=== PATIENT | male | born 1960 | race Caucasian/White ===

== ENCOUNTER 2020-02-16 08:45 | Outpatient (REF) | payer MEDICARE, MEDICAID, SELFPAY ==
[2020-02-16 09:47] LABS: MANUAL DIFF FLAG NO
[2020-02-16 09:59] LABS: Basophils Percent Auto 0.4 % (0-2); Eosinophils Absolute Auto 0.2 X10*3/uL (0.0-0.4); Eosinophils Percent Auto 2.6 % (0-4); Hematocrit 39.3 % (42-52); Hemoglobin 13.2 g/dl (14.0-18.0); Imm Gran Abs Auto 0.02 X10*3/uL (0.00-0.03); Imm Gran Pct Auto 0.3 % (0.0-0.4); Lymphocytes Absolute Auto 1.9 X10*3/uL (1.2-4.9); Lymphocytes Percent Auto 28.1 % (20-40); Mean Corpuscular HGB Conc 33.6 g/dl (31.0-36.0); Mean Corpuscular Hemoglobin 32.4 pg (27.0-33.0); Mean Corpuscular Volume 96.6 fL (80-98); Mean Platelet Volume 10.2 fL (9.4-12.4); Monocytes Absolute Auto 0.5 X10*3/uL (0.1-1.2); Monocytes Percent Auto 7.9 % (2-11); Neutrophils Absolute Auto 4.2 X10*3/uL (2.0-8.3); Neutrophils Percent Auto 60.7 % (45-73); Platelet Count 190 X10*3/uL (160-400); Red Blood Count 4.07 X10*6/uL (4.60-5.80); Red Cell Distribution Width 12.6 % (11.0-16.0); White Blood Count 6.9 X10*3/uL (4.8-10.8)
[2020-02-16 10:29] LABS: Alanine Aminotransferase 24 U/L (0-40); Albumin Level 4.4 g/dL (3.5-5.0); Alkaline Phosphatase 59 U/L (39-117); Anion Gap 12 (12-20); Aspartate Amino Transferase 26 U/L (5-37); Bilirubin Direct 0.3 mg/dL (0.0-0.5); Bilirubin Total 0.7 mg/dL (0.0-1.0); Blood Urea Nitrogen 15 mg/dL (9-16); Calcium 9.6 mg/dL (8.4-10.2); Carbon Dioxide 29 mmol/L (22-29); Chloride 103 mmol/L (96-108); Cholesterol 190 mg/dL; Estimated Glomerular Filt Rate > 60; Glucose Random 112 mg/dL (60-115); HDL Cholesterol 56 mg/dL; LDL Cholesterol Calculated 88 mg/dl; Potassium 4.9 mmol/l (3.3-5.1); Sodium 139 mmol/L (135-145); Total Protein 7.2 g/dL (6.5-8.0); Triglycerides 233 mg/dL
== END 2020-02-16 08:46 | disposition home or self-care (01) ==
LOC: HO.10HDL 08:45
DX: E78.5 Hyperlipidemia, unspecified (principal); I10 Essential (primary) hypertension
CPT/HCPCS: 36415; 80048; 80061; 80076; 85025

== ENCOUNTER 2021-02-07 06:47 | Outpatient (REF) | payer MEDICARE, SELFPAY ==
[2021-02-07 06:54] LABS: MANUAL DIFF FLAG NO
[2021-02-07 07:21] LABS: Basophils Percent Auto 0.4 % (0-2); Eosinophils Absolute Auto 0.1 X10*3/uL (0.0-0.4); Eosinophils Percent Auto 1.8 % (0-4); Hematocrit 38.8 % (42-52); Hemoglobin 12.4 g/dl (14.0-18.0); Imm Gran Abs Auto 0.02 X10*3/uL (0.00-0.03); Imm Gran Pct Auto 0.3 % (0.0-0.4); Immature Retic Fraction 10.4 % (2.3-13.4); Lymphocytes Absolute Auto 3.2 X10*3/uL (1.2-4.9); Lymphocytes Percent Auto 40.2 % (20-40); Mean Corpuscular Hemoglobin 31.6 pg (27.0-33.0); Mean Platelet Volume 9.8 fL (9.4-12.4); Monocytes Absolute Auto 0.6 X10*3/uL (0.1-1.2); Monocytes Percent Auto 7.6 % (2-11); Neutrophils Percent Auto 49.7 % (45-73); Platelet Count 200 X10*3/uL (160-400); Red Blood Count 3.92 X10*6/uL (4.60-5.80); Red Cell Distribution Width 12.8 % (11.0-16.0); Retic HGB Equivalent 36.4 pg (30.0-35.0); Reticulocyte Percent 1.8 % (0.5-1.8); Reticulocytes Absolute 0.072 X10*6/uL (0.026-0.095); White Blood Count 7.9 X10*3/uL (4.8-10.8)
[2021-02-07 07:52] LABS: B Type Natriuretic Peptide 260 pg/mL (<100)
[2021-02-07 07:59] LABS: Alanine Aminotransferase 15 U/L (0-40); Albumin Level 4.3 g/dL (3.5-5.0); Alkaline Phosphatase 61 U/L (39-117); Anion Gap 15 (12-20); Aspartate Amino Transferase 19 U/L (5-37); Bilirubin Total 0.4 mg/dL (0.0-1.0); Blood Urea Nitrogen 18 mg/dL (9-16); Carbon Dioxide 26 mmol/L (22-29); Chloride 101 mmol/L (96-108); Cholesterol 168 mg/dL; Estimated Glomerular Filt Rate > 60; Glucose Random 118 mg/dL (60-115); HDL Cholesterol 54 mg/dL; Iron 97 mcg/dL (45-160); LDL Cholesterol Calculated 80 mg/dl; Percent Iron Saturation 36 % (15-50); Potassium 5.3 mmol/L (3.3-5.1); Sodium 137 mmol/L (135-145); Total Iron Binding Capacity 271 mcg/dL (228-428); Total Protein 7.4 g/dL (6.5-8.0); Triglycerides 173 mg/dL; Unsaturated Iron Binding 174 ug/dL
[2021-02-07 08:09] LABS: Free T4 (Free Thyroxine) 0.83 ng/dL (0.71-1.85); Prostate Specific Antigen Scr 0.17 ng/mL (<0.05-4.0); Thyroid Stimulating Hormone 0.64 uIU/mL (0.32-4.0)
[2021-02-07 08:26] LABS: Estimated Average Glucose 100 mg/dL; Hemoglobin A1c % 5.1 %
[2021-02-07 08:32] LABS: Ferritin 217 ng/mL (20-250)
[2021-02-07 09:22] LABS: Folate 5.1 ng/mL (> or = 4.0); Vitamin B12 302 pg/mL (200-900)
== END 2021-02-07 06:48 | disposition home or self-care (01) ==
LOC: HO.LAB 06:47
PROVIDERS: PCP Internal Medicine; Visit Provider Internal Medicine
DX: E78.00 Pure hypercholesterolemia, unspecified (principal); I11.0 Hypertensive heart disease with heart failure; I50.9 Heart failure, unspecified; R73.02 Impaired glucose tolerance (oral); D64.9 Anemia, unspecified; Z12.5 Encounter for screening for malignant neoplasm of prostate
CPT/HCPCS: 36415; 80053; 80061; 82607; 82728; 82746; 83036; 83540; 83880; 84153; 84439; 84443; 85025; 85045

== ENCOUNTER → 2021-03-28 10:12 | Outpatient (REF) | payer MEDICARE, SELFPAY ==
--- NOTE | 2021-03-28 10:16 | CA_ITS ---
Transthoracic Echocardiogram Patient (Last, First, Middle): Johnny Pittman L Gender: Male Date of : 1960 Age: 60 Procedure Date: 03/28/2021 Procedure Type: Transthoracic Echocardiogram Location: OP Height: 172.72 cm Weight: 90.72 kg BSA: 2.04 m2 Heart Rate: bpm BP: 128 / 62 mmHg Agricultural Chemist: Referring MD: Boy Jorge MD Facilities Coordinator: Ian Gallardo MD Symptoms: I25.10 - Atherosclerotic heart disease of [place] coronary... Study Quality: Fair ECG Rhythm: Sinus Conclusions: - 1. Moderate to severe LV systolic dysfunction with LVEF of 30 35% with underlying regional wall motion abnormality consistent with ischemic cardiomyopathy with impaired relaxation filling pattern 2. Mild mitral regurgitation 3. Normal RV systolic pressure 4. No gross pericardial effusion Findings Procedure Information Contrast agent, definity, is being given per protocol without apparent complications. Left Ventricle Normal left ventricular cavity size. There is normal left ventricular wall thickness. The left ventricular systolic function is moderate to severely decreased. The visually estimated ejection fraction is between 30-35%. Spectral Doppler is indicative of an impaired relaxation filling pattern. Wall Motion Rest Echo Findings The apical septum is hypokinetic. The inferoseptal wall and inferior wall are akinetic. All other scored wall segments showed normal motion. Right Ventricle Normal right ventricular cavity size. There is mildly decreased right ventricular systolic function. Atria The left atrium is normal in size. Interatrial shunt cannot be excluded. The right atrium is normal in size. Aortic Valve The aortic valve was not well visualized. There is no aortic valve stenosis. There is no aortic valve regurgitation. Mitral Valve Likely normal mitral valve structure and function. There is mild mitral annular calcification. There is mild mitral valve regurgitation. There is no mitral valve stenosis. Pulmonic Valve The pulmonic valve was not well visualized. Tricuspid Valve Likely normal tricuspid valve structure and function. There is mild tricuspid valve regurgitation. The right ventricular systolic pressure is normal. The right ventricular systolic pressure is 37 mmHg. There is no evidence of pulmonary hypertension. Great Vessels All visible segments of the aorta are normal in size. The pulmonary artery was not well visualized. Venous The inferior vena cava is normal in size and collapses greater than 50% with inspiration. Pericardium/Pleural There is no evidence of pericardial effusion. Prior Study Comparison Changes noted compared to prior study dated: 07/25/2016. LV systolic function is marginally reduced Measurements 2D Linear Measurements IVSd: 0.96 0.6-0.9/0.6-1.0 cm LVIDd: 5.47 3.9-5.3/4.2-5.9 cm LVIDd Index: 2.68 2.4-3.2/2.2-3.1 cm/m2 LVIDs: 4.39 2.0-3.6 cm LVPWd: 1.01 0.7-1.1 cm LA Diam: 3.60 2.7-3.8/3.0-4.0 cm LAIDs Index: 1.76 1.5-2.3 cm/m2 LV Mass: 257.74 67-162/88-224 g LV Mass Index: 126.35 43-95/49-115 g/m2 LVOT Diam: 2.10 3.0+(-)1.3 cm 2D Systolic Function EF 4C: 33.80 >55% EF 2C: 3.70 >55% Mitral Valve MV Pk E: 0.55 MV PK A: 0.57 MV Decel Time: 231.00 E/A: 1.00 E'Lateral: 9.03 E'Medial: 6.64 E/E' Med: 8.30 E/E' Lat: 6.10 PHT: 68.00 MVA PHT: 3.24 Decel [place]on: 2.38 Aortic Valve AoV Pk Chinmay: 1.33 AoV Pk Grad: 7.00 LVOT LVOT Pk Chinmay: 1.15 LVOT Mn Chinmay: 0.71 LVOT VTI: 0.23 LVOT Pk Grad: 5.00 LVOT Mn Grad: 2.00 LVOT Diam: 2.10 LVOT Area: 3.46 Diastolic Function MV Pk E: 0.55 MV Pk A: 0.57 E/A: 1.00 E'Medial: 6.64 E/E' Med: 8.30 E' Laterial: 9.03 E/E' Lat: 6.10 Right Ventricle TAPSE (mm): 1.20 Tricuspid Valve TR Pk Chinmay: 2.91 TR Pk Grad: 34.00 RA Press: 3.00 RVSP: 37.00 Great Vessels Aorta Ao Asc: 2.50 2.1-3.4 cm Updated in Other Vendor System with Status of Final Ian Gallardo MD electronically signed on 04/03/2021 1:12:08 PM with status of Final
--- NOTE | 2021-03-28 10:16 | CA_ITS ---
INDICATIONS: Atherosclerotic heart disease of [place] coronary artery without angina pectoris. HT: 5'8 WT: 200 BSA: 2.04 m2 BP: 128/62 BRICKLAYER HELPER: DSG STUDY QUALITY: ECG RHYTHM: CONCLUSIONS: FINDINGS: M-MODE/2D MEASUREMENTS: LVd: 5.47 cm LVs: 4.39 cm IVSd: 0.9 cm IVSs: LVPWd: 1.01 cm LVPWs: ASC. Aorta: 2.5 cm RVd: 2.30 cm AO root: LA: AV Cusp: LVOT: 2.1 cm EF% 40 % TAPSE: 1.66 OTHER: Effusion: Thrombus: Wall Motion: RVSP 46 mmHg Mitral E/A 54.8 cm/s / 57.0 cm/s = 1.0 E Med: 6.84 cm/s E Lat. 9.03 cm/s AV CUSPD TRILEAFLET: DOPPLER MEASUREMENTS: Aortic PPG 2 MFG 7 VELOCITY 133 cm/s VALVE AREA: 2.99 TRICUSPID: PPG 43 VELOCITY 237 cm/s RA Vol. IVC: 1.31 cm LA Vol. 1.84 ml/m2 MTDD
== END ==
LOC: HO.CARD 10:12
PROVIDERS: Visit Provider Internal Medicine
DX: I25.10 Atherosclerotic heart disease of native coronary artery without angina pectoris (principal)
CPT/HCPCS: 93306; Q9957

== ENCOUNTER → 2021-07-29 14:43 | Outpatient (BNVA) | payer MEDICARE, SELFPAY | PROVIDERS: PCP Internal Medicine; Referring Provider Internal Medicine; Visit Provider Internal Medicine Cardiovascular Disease | DX: I25.5 Ischemic cardiomyopathy (principal); I25.10 Atherosclerotic heart disease of native coronary artery without angina pectoris; I10 Essential (primary) hypertension; J44.9 Chronic obstructive pulmonary disease, unspecified; E78.00 Pure hypercholesterolemia, unspecified; F17.210 Nicotine dependence, cigarettes, uncomplicated; Z95.5 Presence of coronary angioplasty implant and graft; Z95.1 Presence of aortocoronary bypass graft; Z79.82 Long term (current) use of aspirin; Z79.899 Other long term (current) drug therapy | CPT/HCPCS: 93005; 99202 ==

== ENCOUNTER 2021-08-30 07:53 | Outpatient (REF) | payer MEDICARE, SELFPAY ==
[2021-08-30 08:19] LABS: MANUAL DIFF FLAG NO
[2021-08-30 09:14] LABS: Basophils Percent Auto 0.5 % (0-2); Eosinophils Absolute Auto 0.1 X10*3/uL (0.0-0.4); Eosinophils Percent Auto 1.5 % (0-4); Hematocrit 30.3 % (42.0-52.0); Hemoglobin 9.6 g/dl (14.0-18.0); Imm Gran Abs Auto 0.01 X10*3/uL (0.00-0.03); Imm Gran Pct Auto 0.2 % (0.0-0.4); Immature Retic Fraction 12.4 % (2.3-13.4); Lymphocytes Absolute Auto 2.1 X10*3/uL (1.2-4.9); Lymphocytes Percent Auto 37.7 % (20-40); Mean Corpuscular HGB Conc 31.7 g/dl (31.0-36.0); Mean Corpuscular Hemoglobin 31.2 pg (27.0-33.0); Mean Corpuscular Volume 98.4 fL (80.0-98.0); Mean Platelet Volume 10.8 fL (9.4-12.4); Monocytes Absolute Auto 0.4 X10*3/uL (0.1-1.2); Monocytes Percent Auto 7.1 % (2-11); Neutrophils Absolute Auto 2.9 x10*3/uL (2.0-8.3); Platelet Count 175 X10*3/uL (160-400); Red Blood Count 3.08 X10*6/uL (4.60-5.80); Red Cell Distribution Width 13.1 % (11.0-16.0); Retic HGB Equivalent 35.9 pg (30.0-35.0); Reticulocyte Percent 1.5 % (0.5-1.8); Reticulocytes Absolute 0.046 X10*6/uL (0.026-0.095); White Blood Count 5.5 X10*3/uL (4.8-10.8)
[2021-08-30 09:35] LABS: Alanine Aminotransferase 9 U/L (0-40); Albumin Level 3.8 g/dL (3.5-5.0); Alkaline Phosphatase 72 U/L (39-117); Anion Gap 11 (12-20); Aspartate Amino Transferase 16 U/L (5-37); Bilirubin Total 0.4 mg/dL (0.0-1.0); Blood Urea Nitrogen 23 mg/dL (9-16); Calcium 9.5 mg/dL (8.4-10.2); Carbon Dioxide 22 mmol/L (22-29); Chloride 106 mmol/L (96-108); Cholesterol 111 mg/dL; Estimated Glomerular Filt Rate 20; Glucose Random 100 mg/dL (60-115); HDL Cholesterol 39 mg/dL; Iron 101 mcg/dL (45-160); LDL Cholesterol Calculated 46 mg/dl; Percent Iron Saturation 45 % (15-50); Potassium 5.3 mmol/L (3.3-5.1); Sodium 134 mmol/L (135-145); Total Iron Binding Capacity 222 mcg/dL (228-428); Total Protein 6.4 g/dL (6.5-8.0); Triglycerides 131 mg/dL; Unsaturated Iron Binding 121 ug/dL
[2021-08-30 09:56] LABS: Ferritin 196 ng/mL (20-250)
[2021-08-30 10:02] LABS: Folate 5.6 ng/mL (> or = 4.0); Vitamin B12 496 pg/mL (200-900)
[2021-08-30 10:10] LABS: Estimated Average Glucose 97 mg/dL
== END 2021-08-30 07:54 | disposition home or self-care (01) ==
LOC: HO.LAB 07:53
PROVIDERS: Absent Provider Internal Medicine Cardiovascular Disease; PCP Internal Medicine; Visit Provider Internal Medicine
DX: Z13.89 Encounter for screening for other disorder (principal)
CPT/HCPCS: 36415; 80053; 80061; 82607; 82728; 82746; 83036; 83540; 85025; 85045

== ENCOUNTER 2021-08-30 14:43 | Inpatient (IN) | payer MEDICARE, OTHER, SELFPAY ==
--- NOTE | ~2021-08-30 | US_ITS ---
EXAMINATION: US RETROPERITONEAL LIMITED (RENAL ONLY) CLINICAL INFORMATION: STANFORD.. COMPARISON: None TECHNIQUE: Real-time imaging of the kidneys. FINDINGS: RIGHT KIDNEY: 9.8 x 6.1 x 4.5 cm (SAG x AP x TRV). The kidney is normal in size, contour, and echogenicity. Renal cortical thickness is normal. No calculi or focal parenchymal lesions. No hydronephrosis. Exophytic circumscribed avascular hypoechogenicity is noted at the mid pole, measures 0.8 x 0.7 x 0.8 cm, most consistent with a small cyst. Slight lobulated contour is present. LEFT KIDNEY: 9.9 x 5.3 x 4.5 cm (SAG x AP x TRV). The kidney is normal in size, contour, and echogenicity. Renal cortical thickness is normal. No calculi or focal parenchymal lesions. No hydronephrosis. US/US renal BI IMPRESSION: No radiographic evidence of any obstruction/hydronephrosis..
[2021-08-30 15:53] VITALS: BP 103/50; PULSE 60; RESP 18; TEMP 37.1; O2SAT 97; BMI 29.9
[2021-08-30 16:00] LABS: MANUAL DIFF FLAG NO
[2021-08-30 16:03] LABS: Basophils Percent Auto 0.4 % (0-2); Eosinophils Absolute Auto 0.1 X10*3/uL (0.0-0.4); Eosinophils Percent Auto 1.3 % (0-4); Hemoglobin 9.7 g/dl (14.0-18.0); Imm Gran Abs Auto 0.02 X10*3/uL (0.00-0.03); Imm Gran Pct Auto 0.3 % (0.0-0.4); Lymphocytes Absolute Auto 2.7 X10*3/uL (1.2-4.9); Mean Corpuscular HGB Conc 32.3 g/dl (31.0-36.0); Mean Corpuscular Hemoglobin 31.8 pg (27.0-33.0); Mean Corpuscular Volume 98.4 fL (80.0-98.0); Mean Platelet Volume 10.5 fL (9.4-12.4); Monocytes Absolute Auto 0.6 X10*3/uL (0.1-1.2); Monocytes Percent Auto 8.2 % (2-11); Neutrophils Absolute Auto 3.8 x10*3/uL (2.0-8.3); Neutrophils Percent Auto 52.8 % (45-73); Platelet Count 185 X10*3/uL (160-400); Red Blood Count 3.05 X10*6/uL (4.60-5.80); Red Cell Distribution Width 13.2 % (11.0-16.0); White Blood Count 7.2 X10*3/uL (4.8-10.8)
[2021-08-30 16:22] LABS: Alanine Aminotransferase 10 U/L (0-40); Albumin Level 3.8 g/dL (3.5-5.0); Alkaline Phosphatase 71 U/L (39-117); Anion Gap 12 (12-20); Aspartate Amino Transferase 17 U/L (5-37); Bilirubin Total 0.3 mg/dL (0.0-1.0); Blood Urea Nitrogen 23 mg/dL (9-16); Calcium 9.3 mg/dL (8.4-10.2); Carbon Dioxide 22 mmol/L (22-29); Chloride 106 mmol/L (96-108); Creatinine Clr Calc Pharmacy 26.8; Estimated Glomerular Filt Rate 19; Glucose Random 92 mg/dL (60-115); Potassium 5.9 mmol/L (3.3-5.1); Sodium 134 mmol/L (135-145); Total Protein 6.7 g/dL (6.5-8.0)
[2021-08-30 17:10] VITALS: BP 134/34; PULSE 63; RESP 17; TEMP 36.6; O2SAT 96
--- NOTE | 2021-08-30 17:19 | PC.NURSE ---
pt reports he started Ezetimibe a month ago.
[2021-08-30 17:22] VITALS: BP 110/46; PULSE 63; RESP 16; O2SAT 99
--- NOTE | 2021-08-30 17:41 | ED.RECABL ---
HPI - Recheck/Abnormal Lab/Rx General Chief Complaint: Recheck/Abnormal Lab/Rx Stated Complaint: Kidney failure Time Seen by Provider: 08/30/21 17:09 Source: patient Mode of arrival: ambulatory Limitations: no limitations History of Present Illness HPI narrative: patient presents to the emergency department by referral from his primary care office, states this is had routine lab work performed and was advised he has kidney failure. Related Data Home Medications Medication Instructions Recorded Confirmed aspirin 81 mg tablet,delayed 81 mg PO DAILY 08/15/20 08/30/21 release (Adult Aspirin Regimen) albuterol sulfate 90 mcg/actuation 1 inh INHALATION Q4H PRN 08/30/21 08/30/21 aerosol inhaler (Ventolin HFA) Previous Rx's Medication Instructions Recorded rosuvastatin 40 mg tablet 40 mg PO DAILY 90 Days #90 tab 02/15/21 metoprolol succinate 50 mg 50 mg PO DAILY #90 tab 04/17/21 tablet,extended release 24 hr lisinopril 20 mg tablet 20 mg PO DAILY 90 Days #90 tab 04/24/21 omeprazole 20 mg capsule,delayed 20 mg PO BID 90 Days #180 cap 06/06/21 release zolpidem 5 mg tablet 5 mg PO BEDTIME PRN #30 tab 06/06/21 ezetimibe 10 mg tablet (Zetia) 10 mg PO DAILY #30 tab 07/29/21 Allergies Allergy/AdvReac Type Severity Reaction Status Date / Time No Known Allergies Allergy Verified 06/06/21 11:09 [facility] Past Medical History Medical History Colon cancer screening Colonoscopy refused COPD (chronic obstructive pulmonary disease) Coronary artery disease GERD (gastroesophageal reflux disease) Hypercholesterolemia Hypertension Insomnia Ischemic cardiomyopathy Obesity (BMI 30-39.9) Umbilical hernia Surgical History Hx of CABG Family History Family History Father No problems noted. Mother No problems noted. Sister No problems noted. Sister No problems noted. Brother No problems noted. Brother Myocardial infarct Liver cancer Social History Social History Housing: Apartment Alcohol intake: current Alcohol intake frequency: 3 or more drinks per day Alcohol type: beer Patient Tobacco Use Status: Current everyday Tobacco user Tobacco use type: Cigarette Cigarettes Per Day: 8 e-Cigarette/Vaping Use: Never Used Second Hand Smoke Exposure: No Advance Directives Date on File: 02/16/20 Current occupational status: unemployed Physical Exam Vital Signs: Vital Signs: Last Vital Signs Temp 97.0 F 08/30/21 20:00 Pulse 73 08/30/21 20:00 Resp 20 08/30/21 20:00 BP 107/68 08/30/21 20:00 Pulse Ox 94 08/30/21 20:00 BMI result Body Mass Index 29.9 Vital signs have been reviewed as normal and appeared to be correct. blood pressure is slightly low diastolically 110/46? Heart rate normal.? Respiration rate normal. Temperature normal.? Oxygen saturation normal. Appearance: Alert.?Oriented to person, place and time. No acute distress.?Normal affect. Eyes: Pupils equal, round and reactive to light.? ENT: Pharynx normal.?? Neck: Normal inspection.? Neck supple.?? CVS: Heart sounds normal. Normal heart rate and rhythm.? Pulses normal.?? Respiratory: No respiratory distress.? Lung sounds bilateral inspiratory expiratory wheezing. No increased work of breathing. Abdomen: Soft and non-tender. Normoactive bowel sounds. No pulsatile mass.?? Skin: Skin warm and dry.? Normal skin color.? Normal skin turgor.?? Extremities: No lower extremity edema.? No calf ttp? Neuro: Moves all extremities spontaneously. Sensation intact bilaterally. CN II-XII intact. No focal neuro deficits. Ambulates with normal steady gait. Course Course Course Narrative: Patient is a 61-year-old male with a past medical history of ischemic cardiomyopathy, insomnia, anemia, tobacco abuse, obesity, impaired glucose tolerance, COPD, congestive heart failure, coronary artery disease, GERD, hypercholesterolemia hypertension. he presents to the emergency department for evaluation are abnormal renal function. patient's home medication list was reviewed for potential renal toxic medications, he is taking lisinopril, recently started on Zetia over the past month, in addition to rosuvastatin. patient without any acute complaints, he is overall well appearing not toxic have bilateral inspiratory-expiratory wheezing consistent with COPD, denies feelings of shortness of breath or dyspnea on exertion, using inhalers at home as prescribed. Reevaluation(s) Reevaluation #1: CBC reveals a macrocytic anemia with hemoglobin of 9.7 and hematocrit 30.0 BMP reveals BUN of 23 and creatinine 3.3 with sodium 134 and potassium 5.9. patient is without altered mental status, or seizure activity, no known exposure to potential toxins. will gently hydrate with 500 mL normal saline IV fluid bolus. spoke with hospitalist Service, Dr. Wen, for admission to Medicine who accepts patient at this time, Patient will require renal consultation. Advised patient plan of care and he is agreeable. Add on lab orders for total CK, given zetia and statin usage. Time: 18:15 Reevaluation #2: Urinalysis reveals 2+ blood, RBC 10-14, no concern for infectious process. Total CK 305. Time: 18:46 MDM - Recheck/Abnormal Lab/Rx Lab Data Result diagrams: 08/30/21 15:56 08/30/21 15:57 Labs: Lab Results 08/30/21 08/30/21 08/30/21 Range/Units 15:56 15:57 18:14 WBC 7.2 (4.8-10.8) X10*3/uL RBC 3.05 L (4.60-5.80) X10*6/uL Hgb 9.7 L (14.0-18.0) g/dl Hct 30.0 L (42.0-52.0) % MCV 98.4 H (80.0-98.0) fL MCH 31.8 (27.0-33.0) pg MCHC 32.3 (31.0-36.0) g/dl RDW 13.2 (11.0-16.0) % Plt Count 185 (160-400) X10*3/uL MPV 10.5 (9.4-12.4) fL Immature Gran % (Auto) 0.3 (0.0-0.4) % Neut % (Auto) 52.8 (45-73) % Lymph % (Auto) 37.0 (20-40) % [place] % (Auto) 8.2 (2-11) % Eos % (Auto) 1.3 (0-4) % Baso % (Auto) 0.4 (0-2) % Lymph # (Auto) 2.7 (1.2-4.9) X10*3/uL [place] # (Auto) 0.6 (0.1-1.2) X10*3/uL Eos # (Auto) 0.1 (0.0-0.4) X10*3/uL Baso # (Auto) 0.0 (0.0-0.2) X10*3/uL Abs Immat Gran (auto) 0.02 (0.00-0.03) X10*3/uL Absolute Neuts (auto) 3.8 (2.0-8.3) x10*3/uL Absolute Nucleated RBC 0.000 (0.0-0.012) X10*3/uL Nucleated RBC % (auto) 0.0 (0.0-0.2) /100WBC Sodium 134 L (135-145) mmol/L Potassium 5.9 H (3.3-5.1) mmol/L Chloride 106 (96-108) mmol/L Carbon Dioxide 22 (22-29) mmol/L Anion Gap 12 (12-20) BUN 23 H (9-16) mg/dL Creatinine 3.30 H (0.5-1.4) mg/dL Estim Creat Clear Calc 26.8 Estimated GFR 19 Random Glucose 92 (60-115) mg/dL Calcium 9.3 (8.4-10.2) mg/dL Phosphorus 4.5 (2.7-4.5) mg/dL Magnesium 2.1 (1.6-2.6) mg/dL Total Bilirubin 0.3 (0.0-1.0) mg/dL AST 17 (5-37) U/L ALT 10 (0-40) U/L Alkaline Phosphatase 71 (39-117) U/L Total Creatine Kinase 305 H (38-174) U/L Total Protein 6.7 (6.5-8.0) g/dL Albumin 3.8 (3.5-5.0) g/dL Urine Color YELLOW Urine Appearance CLEAR Urine pH 6.0 (5.0-8.0) Ur Specific [place] 1.010 (1.005-1.025) Urine Protein TRACE (NEG-TRACE) MG/DL Urine Glucose (UA) NEG (NEG) MG/DL Urine Ketones NEG (NEG) MG/DL Urine Blood 2+ H (NEG) Urine Nitrite NEG (NEG) Ur Leukocyte Esterase NEG (NEG) Urine RBC 10-14 H (0) /HPF Urine WBC 0 (0-4) /HPF Ur Squamous Epith Cells TRACE /LPF Urine Bacteria NONE /LPF COVID-19 (CED) (Negative) COVID-19 Clin Com 08/30/21 Range/Units 18:14 WBC (4.8-10.8) X10*3/uL RBC (4.60-5.80) X10*6/uL Hgb (14.0-18.0) g/dl Hct (42.0-52.0) % MCV (80.0-98.0) fL MCH (27.0-33.0) pg MCHC (31.0-36.0) g/dl RDW (11.0-16.0) % Plt Count (160-400) X10*3/uL MPV (9.4-12.4) fL Immature Gran % (Auto) (0.0-0.4) % Neut % (Auto) (45-73) % Lymph % (Auto) (20-40) % [place] % (Auto) (2-11) % Eos % (Auto) (0-4) % Baso % (Auto) (0-2) % Lymph # (Auto) (1.2-4.9) X10*3/uL [place] # (Auto) (0.1-1.2) X10*3/uL Eos # (Auto) (0.0-0.4) X10*3/uL Baso # (Auto) (0.0-0.2) X10*3/uL Abs Immat Gran (auto) (0.00-0.03) X10*3/uL Absolute Neuts (auto) (2.0-8.3) x10*3/uL Absolute Nucleated RBC (0.0-0.012) X10*3/uL Nucleated RBC % (auto) (0.0-0.2) /100WBC Sodium (135-145) mmol/L Potassium (3.3-5.1) mmol/L Chloride (96-108) mmol/L Carbon Dioxide (22-29) mmol/L Anion Gap (12-20) BUN (9-16) mg/dL Creatinine (0.5-1.4) mg/dL Estim Creat Clear Calc Estimated GFR Random Glucose (60-115) mg/dL Calcium (8.4-10.2) mg/dL Phosphorus (2.7-4.5) mg/dL Magnesium (1.6-2.6) mg/dL Total Bilirubin (0.0-1.0) mg/dL AST (5-37) U/L ALT (0-40) U/L Alkaline Phosphatase (39-117) U/L Total Creatine Kinase (38-174) U/L Total Protein (6.5-8.0) g/dL Albumin (3.5-5.0) g/dL Urine Color Urine Appearance Urine pH (5.0-8.0) Ur Specific [place] (1.005-1.025) Urine Protein (NEG-TRACE) MG/DL Urine Glucose (UA) (NEG) MG/DL Urine Ketones (NEG) MG/DL Urine Blood (NEG) Urine Nitrite (NEG) Ur Leukocyte Esterase (NEG) Urine RBC (0) /HPF Urine WBC (0-4) /HPF Ur Squamous Epith Cells /LPF Urine Bacteria /LPF COVID-19 (CED) Negative (Negative) COVID-19 Clin Com See Note Discharge Plan Discharge Clinical Impression: Acute kidney injury Patient Disposition: Admitted As Inpatient Interventions: Admission Worksheet (ED) Last Done: 08/30/21 20:15 Discharge Date/Time: 08/30/21 19:40
--- NOTE | 2021-08-30 18:06 | ECG_ITS ---
Test Reason : elevated potassium, rhythym check Blood Pressure : / mmHG Vent. Rate : 058 BPM Atrial Rate : 058 BPM P-R Int : 204 ms QRS Dur : 146 ms QT Int : 440 ms P-R-T Axes : 073 094 076 degrees QTc Int : 431 ms Sinus bradycardia Right bundle branch block Possible Inferior infarct (cited on or before 27-DEC-2011) Abnormal ECG When compared with ECG of 10-MAY-2013 11:25, Criteria for Anteroseptal infarct are no longer Present Referred By: Ana Rosa Bravo Electronically Signed By:CAM LOPEZ MD
[2021-08-30 18:17] VITALS: PULSE 64; RESP 16; O2SAT 98
[2021-08-30 18:20] LABS: Appearance Urine CLEAR; Color Urine YELLOW; Glucose Urine UA NEG (NEG); Leukocyte Esterase Urine NEG (NEG); Nitrite Urine NEG (NEG); UACC Culture Trigger NO; Urine Blood 2+ (NEG); Urine Ketones NEG (NEG); Urine Protein TRACE MG/DL (NEG-TRACE)
[2021-08-30 18:21] LABS: Magnesium 2.1 mg/dL (1.6-2.6); Phosphorus 4.5 mg/dL (2.7-4.5)
[2021-08-30] MEDS: 0.9 % Sodium Chloride 500 ML IV (18:21)
[2021-08-30 18:28] LABS: Squamous Epithelial Cell Urine TRACE /LPF; WBC Urine 0 /HPF (0-4)
[2021-08-30 18:35] LABS: COVID-19 Test Negative (Negative)
--- NOTE | 2021-08-30 18:35 | P.HPHOSP_ITS ---
History of Present Illness Date of Service: 08/30/21 Chief Complaint: STANFORD 61-year-old male presents today after routine labs from .-3.. When questioned, he denies dehydration/diarrhea, toxin exposure, ingestions. The only new medicine started was that he approximately 2 weeks ago. He voices no complaints at this time. He does carry a history of coronary artery disease with CHF but states he has been pain free without issue for some time now. He admits to drinking 10 beers a day and smoking half a pack a cigarettes but denies past history of alcohol withdrawal. He will be admitted to telemetry IV volume replacement and renal consult in a.m. Review of Systems Review of Systems: Denies chest pain Denies shortness of breath Denies nausea vomiting diarrhea Denies fever chills Denies rashes [facility] Medical History Colon cancer screening Colonoscopy refused COPD (chronic obstructive pulmonary disease) Coronary artery disease GERD (gastroesophageal reflux disease) Hypercholesterolemia Hypertension Insomnia Ischemic cardiomyopathy Obesity (BMI 30-39.9) Umbilical hernia Family History Father No problems noted. Mother No problems noted. Sister No problems noted. Sister No problems noted. Brother No problems noted. Brother Myocardial infarct Liver cancer Surgical History Hx of CABG Social History Housing: Apartment Alcohol intake: current Alcohol intake frequency: 3 or more drinks per day Alcohol type: beer Patient Tobacco Use Status: Current everyday Tobacco user Tobacco use type: Cigarette Cigarettes Per Day: 8 Smoked in Last 30 Days: Yes e-Cigarette/Vaping Use: Never Used Second Hand Smoke Exposure: No Use of substances other than those prescribed or required for medical reasons: No Advance Directives: Yes Advance Directives Information Provided: No Advance Directives on File: No Advance Directives Date on File: 02/16/20 Current occupational status: unemployed Meds Allergies Allergy/AdvReac Type Severity Reaction Status Date / Time No Known Allergies Allergy Verified 06/06/21 11:09 Active Medications: Current Medications Sodium Chloride (Ns) 500 mls @ 500 mls/hr IV .Q1H DOMINIQUE Stop: 08/30/21 19:14 Last Admin: 08/30/21 18:21 Dose: 500 mls/hr Documented by: Home Medications Medication Instructions Recorded Confirmed Last Taken Type aspirin 81 mg tablet,delayed 81 mg PO DAILY 08/15/20 08/30/21 08/30/21 History release (Adult Aspirin Regimen) albuterol sulfate 90 mcg/actuation 1 inh INHALATION Q4H PRN 08/30/21 08/30/21 Un known History aerosol inhaler (Ventolin HFA) Physical Exam Vital Signs and Narrative: Vital Signs: Last Vital Signs Temp 98 F 08/30/21 17:10 Pulse 64 08/30/21 18:17 Resp 16 08/30/21 18:17 BP 110/46 L 08/30/21 17:22 Pulse Ox 98 08/30/21 18:17 BMI result Body Mass Index 29.9 Const: Other: Awake alert oriented x3 no acute distress Resp: Other: Diminished all [place] with dense expiratory wheezes throughout Cardio: Other: Distant heart sounds; no S4; positive S1-S2; no S3 murmurs rubs or gallops GI: Other: Soft nontender nondistended with normoactive bowel sounds. There are no overt peritoneal signs Neuro: Other: Cranial nerves 2-12 grossly intact this tested. Motor is 5/5 all extremities. Sensation is intact. Cognition appropriate Extrem: Other: No edema bilaterally Results Labs CBC and Chem 7: 08/30/21 15:56 08/30/21 15:57 Labs: Laboratory Results - last 24 hr 08/30/21 08/30/21 08/30/21 15:56 15:57 18:14 MCV 98.4 H MCH 31.8 MCHC 32.3 RDW 13.2 Plt Count 185 MPV 10.5 Immature Gran % (Auto) 0.3 Neut % (Auto) 52.8 Lymph % (Auto) 37.0 [place] % (Auto) 8.2 Eos % (Auto) 1.3 Baso % (Auto) 0.4 Lymph # (Auto) 2.7 [place] # (Auto) 0.6 Eos # (Auto) 0.1 Baso # (Auto) 0.0 Abs Immat Gran (auto) 0.02 Absolute Neuts (auto) 3.8 Absolute Nucleated RBC 0.000 Nucleated RBC % (auto) 0.0 Potassium 5.9 H Anion Gap 12 Creatinine 3.30 H Estim Creat Clear Calc 26.8 Estimated GFR 19 Random Glucose 92 Calcium 9.3 Phosphorus 4.5 Magnesium 2.1 Total Bilirubin 0.3 AST 17 ALT 10 Alkaline Phosphatase 71 Total Protein 6.7 Albumin 3.8 Urine Color YELLOW Urine Appearance CLEAR Urine pH 6.0 Ur Specific [place] 1.010 Urine Protein TRACE Urine Glucose (UA) NEG Urine Ketones NEG Urine Blood 2+ H Urine Nitrite NEG Ur Leukocyte Esterase NEG Urine RBC 10-14 H Urine WBC 0 Ur Squamous Epith Cells TRACE Urine Bacteria NONE Assessment and Plan (1) Acute kidney injury: Status: Acute (2) Impaired glucose tolerance: Status: Acute (3) COPD (chronic obstructive pulmonary disease): Qualifiers: COPD type: emphysema Emphysema type: panlobular Qualified Code(s): J43.1 - Panlobular emphysema Status: Acute (4) Coronary artery disease: Qualifiers: Coronary Disease-Associated Artery/Lesion type: [place] artery [place] vs. transplanted heart: [place] heart Associated angina: without angina Qualified Code(s): I25.10 - Atherosclerotic heart disease of [place] coronary artery without angina pectoris Status: Acute (5) Hypertension: Qualifiers: Hypertension type: essential hypertension Qualified Code(s): I10 - Essential (primary) hypertension Status: Acute Plan 61-year-old male presents for routine laboratory evaluation and is found to have STANFORD I by labs. He states compliance with his medicine and no exposure to toxins and no history of dehydration. The only new medicine is Zetia which was introduced approximately 2 weeks ago. He presents with hyponatremia/hyperkalemia as well as the STANFORD. 1. STANFORD -admit to telemetry -hold MALVIN-inhibitor -gentle volume with normal saline 100 cc an hour overnight -Follow renals/divalents....total CKs pending -renal consult in am 2. Hyperkalemia/hyponatremia -1 dose of Lokelma tonight -volume depletion with saline as above -labs in a.m. 3. COPD (examines tight however is asymptomatic) -p.r.n. nebs -adjust as indicated 4. CAD (no recent chest pain) -continue metoprolol/aspirin -hold lisinopril, statin, Zetia -observe on telemetry 5. Hypertension -as per 4. -will avoid renal toxins 6. GERD -continue PPI Full code Heparin Will require 1-2 midnights going forward for treatment of STANFORD and hyperkalemia and determination of etiology. This can not be accomplished in a less acute setting Quality Stroke Does the patient have a stroke diagnosis?: No VTE Prior VTE?: No VTE Risk Level:: Medical - moderate - high VTE Device Contraindication: Treatment Not Tolerated VTE Drug Contraindication: N/A - Med Ordered
--- NOTE | 2021-08-30 18:35 | PHA.MEDREC ---
Pharmacy Consult ? Medication Reconciliation Pharmacy has completed the medication reconciliation. Pt states that he is taking both ezetimibe and rosuvastatin, however his rosuvastatin hasn't been filled since April 2021. Asked pt about this but he was insistent. Nasrin Scherer, GunnarD
[2021-08-30] MEDS: Sodium Zirconium Cyclosilicate 10 GM POWD.PACK PO (19:19)
[2021-08-30 20:00] VITALS: BP 107/68; PULSE 73; RESP 20; TEMP 36.1; O2SAT 94
[2021-08-30] MEDS: 0.9 % Sodium Chloride 1,000 ML 100 ML IVCONT (20:15)
[2021-08-30] MEDS: Heparin Sodium,Porcine 5,000 UNIT/ML VIAL 5000 UNIT SUBCUT (20:16)
[2021-08-30] MEDS: 0.9 % Sodium Chloride Flush 3 ML SYRINGE IVFLUSH (22:52)
[2021-08-30] MEDS: Zolpidem Tartrate 5 MG TABLET PO (22:52)
[2021-08-30 23:14] VITALS: BP 106/51; PULSE 72; RESP 16; TEMP 37.1; O2SAT 98
[2021-08-31 03:15] VITALS: BP 113/53; PULSE 62; RESP 16; TEMP 37; O2SAT 96
[2021-08-31] MEDS: Heparin Sodium,Porcine 5,000 UNIT/ML VIAL 5000 UNIT SUBCUT ×3 (03:55→19:26)
[2021-08-31] MEDS: Omeprazole 20 MG CAPSULE.DR PO ×2 (06:05→16:15)
[2021-08-31] MEDS: 0.9 % Sodium Chloride 1,000 ML 100 ML IVCONT ×2 (06:06→16:13)
[2021-08-31 06:42] LABS: MANUAL DIFF FLAG NO
[2021-08-31 06:58] LABS: Basophils Percent Auto 0.5 % (0-2); Eosinophils Absolute Auto 0.1 X10*3/uL (0.0-0.4); Eosinophils Percent Auto 1.4 % (0-4); Hematocrit 25.8 % (42.0-52.0); Hemoglobin 8.2 g/dl (14.0-18.0); Imm Gran Abs Auto 0.01 X10*3/uL (0.00-0.03); Imm Gran Pct Auto 0.2 % (0.0-0.4); Lymphocytes Absolute Auto 1.7 X10*3/uL (1.2-4.9); Lymphocytes Percent Auto 41.2 % (20-40); Mean Corpuscular HGB Conc 31.8 g/dl (31.0-36.0); Mean Corpuscular Hemoglobin 31.5 pg (27.0-33.0); Mean Corpuscular Volume 99.2 fL (80.0-98.0); Mean Platelet Volume 10.6 fL (9.4-12.4); Monocytes Absolute Auto 0.3 X10*3/uL (0.1-1.2); Monocytes Percent Auto 8.1 % (2-11); Neutrophils Absolute Auto 2.1 x10*3/uL (2.0-8.3); Neutrophils Percent Auto 48.6 % (45-73); Platelet Count 147 X10*3/uL (160-400); Red Cell Distribution Width 13.2 % (11.0-16.0); White Blood Count 4.2 X10*3/uL (4.8-10.8)
[2021-08-31 07:30] LABS: Alanine Aminotransferase 8 U/L (0-40); Albumin Level 3.2 g/dL (3.5-5.0); Alkaline Phosphatase 57 U/L (39-117); Anion Gap 11 (12-20); Aspartate Amino Transferase 15 U/L (5-37); Bilirubin Total 0.4 mg/dL (0.0-1.0); Blood Urea Nitrogen 22 mg/dL (9-16); Calcium 8.8 mg/dL (8.4-10.2); Carbon Dioxide 24 mmol/L (22-29); Chloride 109 mmol/L (96-108); Creatinine Clr Calc Pharmacy 32.2; Estimated Glomerular Filt Rate 24; Glucose Fasting 99 mg/dL (60-99); Potassium 5.7 mmol/L (3.3-5.1); Sodium 138 mmol/L (135-145); Total Protein 5.5 g/dL (6.5-8.0)
[2021-08-31 07:41] VITALS: BP 114/53; PULSE 61; RESP 20; TEMP 36.6; O2SAT 96
--- NOTE | 2021-08-31 08:03 | MHC.CM.PN ---
CM met with Patient at bedside and addressed IMM with him, providing him with the original and placing a copy on the chart. 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 Home no services is the goal and CM has initiated and will follow for dc planning . PCP is DR. Boy Jorge and Patient has received the [employer] Covid vax X1 only.
[2021-08-31] MEDS: Aspirin Enteric Coated 81 MG TABLET.DR PO (09:27)
[2021-08-31] MEDS: Metoprolol Succinate ER 50 MG TAB.ER.24H PO (09:27)
[2021-08-31] MEDS: 0.9 % Sodium Chloride Flush 3 ML SYRINGE IVFLUSH ×2 (09:27→16:13)
[2021-08-31] MEDS: Sodium Zirconium Cyclosilicate 10 GM POWD.PACK PO (09:27)
[2021-08-31 11:21] VITALS: BP 113/53; PULSE 59; RESP 20; TEMP 36.6; O2SAT 98
--- NOTE | 2021-08-31 13:00 | P.PNIM_ITS ---
Subjective Subjective Date of Service: 08/31/21 Interval History: No acute events overnight. Taking nebs. Review of Systems Denies chest pain Denies shortness of breath Denies nausea vomiting diarrhea Denies rashes Physical Exam Vital Signs: Vital Signs: Last Vital Signs Temp 97.9 F 08/31/21 11:21 Pulse 59 08/31/21 11:21 Resp 20 08/31/21 11:21 BP 113/53 L 08/31/21 11:21 Pulse Ox 98 08/31/21 11:21 BMI result Body Mass Index 29.9 Const: Other: Awake alert oriented x3 no acute distress Resp: Other: Diminished all juarez with dense expiratory wheezes throughout Cardio: Other: Distant heart sounds; no S4; positive S1-S2; no S3 murmurs rubs or gallops GI: Other: Soft nontender nondistended with normoactive bowel sounds. There are no overt peritoneal signs Neuro: Other: Cranial nerves 2-12 grossly intact this tested. Motor is 5/5 all extremities. Sensation is intact. Cognition appropriate Extrem: Other: No edema bilaterally Objective Data Active Medications Acetaminophen (Acetaminophen 325 Mg Tablet) 650 mg PO Q6H PRN PRN Reason: Pain, Mild (Pain Scale 1-3) Albuterol Sulfate (Albuterol Sulfate 90 Mcg 8 Gm Inhaler) 1 puff INHALE Q4H PRN PRN Reason: Shortness Of Breath Aspirin (Aspirin Enteric Coated 81 Mg Tablet.) 81 mg PO DAILY [facility] Last Admin: 08/31/21 09:27 Dose: 81 mg Documented by: CHRIS Heparin Sodium (Porcine) (Heparin Sodium,Porcine 5,000 Unit/Ml Vial) 5,000 unit SUBCUT Q8H [facility] Last Admin: 08/31/21 11:34 Dose: 5,000 unit Documented by: CHRIS Sodium Chloride (Ns) 1,000 mls @ 100 mls/hr IVCONT .Q10H [facility] Last Admin: 08/31/21 06:06 Dose: 100 mls/hr Documented by: CHANTAL Metoprolol Succinate (Metoprolol Succinate Er 50 Mg Tab.Er.24h) 50 mg PO DAILY [facility]; Protocol Last Admin: 08/31/21 09:27 Dose: 50 mg Documented by: CHRIS Omeprazole (Omeprazole 20 Mg Capsule.) 20 mg PO BID@0630,1630 [facility] Last Admin: 08/31/21 06:05 Dose: 20 mg Documented by: CHANTAL Sodium Chloride (0.9 % Sodium Chloride Flush 3 Ml Syringe) 3 ml IVFLUSH QSHIFT [facility] Last Admin: 08/31/21 09:27 Dose: 3 ml Documented by: CHRIS Sodium Zirconium Cyclosilicate (Sodium Zirconium Cyclosilicate 10 Gm Powd.Pack) 10 gm PO DAILY [facility] Stop: 09/02/21 08:59 Last Admin: 08/31/21 09:27 Dose: 10 gm Documented by: CHRIS Zolpidem Tartrate (Zolpidem Tartrate 5 Mg Tablet) 5 mg PO BEDTIME PRN PRN Reason: insomnia Last Admin: 08/30/21 22:52 Dose: 5 mg Documented by: CHANTAL Labs CBC & Chem 7: 08/31/21 06:01 08/31/21 06:01 Labs: Laboratory Results - last 24 hr 08/30/21 08/30/21 08/30/21 15:56 15:57 18:14 MCV 98.4 H MCH 31.8 MCHC 32.3 RDW 13.2 Plt Count 185 MPV 10.5 Immature Gran % (Auto) 0.3 Neut % (Auto) 52.8 Lymph % (Auto) 37.0 [place] % (Auto) 8.2 Eos % (Auto) 1.3 Baso % (Auto) 0.4 Lymph # (Auto) 2.7 [place] # (Auto) 0.6 Eos # (Auto) 0.1 Baso # (Auto) 0.0 Abs Immat Gran (auto) 0.02 Absolute Neuts (auto) 3.8 Absolute Nucleated RBC 0.000 Nucleated RBC % (auto) 0.0 Anion Gap 12 Estim Creat Clear Calc 26.8 Estimated GFR 19 Random Glucose 92 Fasting Glucose Calcium 9.3 Phosphorus 4.5 Magnesium 2.1 Total Bilirubin 0.3 AST 17 ALT 10 Alkaline Phosphatase 71 Total Creatine Kinase 305 H Total Protein 6.7 Albumin 3.8 Urine Color YELLOW Urine Appearance CLEAR Urine pH 6.0 Ur Specific [place] 1.010 Urine Protein TRACE Urine Glucose (UA) NEG Urine Ketones NEG Urine Blood 2+ H Urine Nitrite NEG Ur Leukocyte Esterase NEG Urine RBC 10-14 H Urine WBC 0 Ur Squamous Epith Cells TRACE Urine Bacteria NONE COVID-19 (CED) COVID-19 Clin Com 08/30/21 08/31/21 08/31/21 18:14 06:01 06:01 MCV 99.2 H MCH 31.5 MCHC 31.8 RDW 13.2 Plt Count 147 L MPV 10.6 Immature Gran % (Auto) 0.2 Neut % (Auto) 48.6 Lymph % (Auto) 41.2 H [place] % (Auto) 8.1 Eos % (Auto) 1.4 Baso % (Auto) 0.5 Lymph # (Auto) 1.7 [place] # (Auto) 0.3 Eos # (Auto) 0.1 Baso # (Auto) 0.0 Abs Immat Gran (auto) 0.01 Absolute Neuts (auto) 2.1 Absolute Nucleated RBC 0.000 Nucleated RBC % (auto) 0.0 Anion Gap 11 L Estim Creat Clear Calc 32.2 Estimated GFR 24 Random Glucose Fasting Glucose 99 Calcium 8.8 Phosphorus Magnesium Total Bilirubin 0.4 AST 15 ALT 8 Alkaline Phosphatase 57 Total Creatine Kinase 226 H Total Protein 5.5 L Albumin 3.2 L Urine Color Urine Appearance Urine pH Ur Specific [place] Urine Protein Urine Glucose (UA) Urine Ketones Urine Blood Urine Nitrite Ur Leukocyte Esterase Urine RBC Urine WBC Ur Squamous Epith Cells Urine Bacteria COVID-19 (CED) Negative COVID-19 Clin Com See Note Assessment and Plan (1) Acute kidney injury: Status: Acute (2) COPD (chronic obstructive pulmonary disease): Status: Acute (3) Coronary artery disease: Status: Acute (4) Hypertension: Status: Acute (5) GERD (gastroesophageal reflux disease): Status: Acute Plan 61-year-old male presents for routine laboratory evaluation and is found to have STANFORD I by labs. He states compliance with his medicine and no exposure to toxins and no history of dehydration. The only new medicine is Zetia which was introduced approximately 2 weeks ago. He presents with hyponatremia/hyperkale steph as well as the STANFORD. 1. STANFORD -improved with volume -continue normal saline 100 cc an hour -Follow renals/divalents -CKs minimally elevated however improved 2. Hyperkalemia/hyponatremia -hyponatremia resolved -will continue Lokelma dosing daily for 5 days or as recommended by renal -renal ultrasound unremarkable 3. COPD (examines tight however is asymptomatic) -add pulse dose steroids -p.r.n. nebs -adjust as indicated 4. CAD (no recent chest pain) -continue metoprolol/aspirin -hold lisinopril, statin, Zetia -observe on telemetry 5. Hypertension -as per 4. -will avoid renal toxins 6. GERD -continue PPI Full code Heparin Will require ongoing hospitalization for treatment of STANFORD and hyperkalemia and determination of etiology. Quality Stroke Does the patient have a stroke diagnosis?: No VTE Prior VTE?: No VTE Risk Level:: Medical - moderate - high VTE Device Contraindication: Treatment Not Tolerated VTE Drug Contraindication: N/A - Med Ordered
[2021-08-31] MEDS: methylPREDNISolone Sod Succ 125 MG/2 ML VIAL 60 MG IVPUSH ×2 (14:16→19:26)
[2021-08-31 15:04] VITALS: BP 113/56; PULSE 58; RESP 20; TEMP 36.3; O2SAT 97
[2021-08-31 17:37] LABS: Lactate Dehydrogenase 113 U/L (118-273)
--- NOTE | 2021-08-31 18:25 | P.CONNP_ITS ---
History of Present Illness Reason for Consult Consult date: 08/31/21 Reason for consult: STANFORD, Hyperkalemia Chief Complaint Chief complaint: STANFORD History of Present Illness Narrative: 61-year-old male with past medical history of CAD, CHF, alcohol abuse, tobacco abuse and gout who [place] [facility] [place] abnormal outpatient routine labwork. He was noted to have STANFORD with S-Cr = 3.18 mg/dL whereas prior BL was 1. 0-1.2 mg/dL. He was also noted to have K = 5.3. When questioned, he denies dehydration/diarrhea, toxin exposure, ingestions. The only new medicine started was that he approximately 2 weeks ago. He voices no complaints at this time. In speaking to the patient, he admits to knee and ankle pain for ~ 1 week and was taking ibuprofen (2 tabs) along with prescribed lisinopril. He denies any additional otc medications. ROS otherwise negative. Review of Systems Review of Systems Yes all other systems are reviewed and are negative Constitutional: Reports as per [facility] Past Medical History Medical History Colon cancer screening Colonoscopy refused COPD (chronic obstructive pulmonary disease) Coronary artery disease GERD (gastroesophageal reflux disease) Hypercholesterolemia Hypertension Insomnia Ischemic cardiomyopathy Obesity (BMI 30-39.9) Umbilical hernia Family History Family History Father No problems noted. Mother No problems noted. Sister No problems noted. Sister No problems noted. Brother No problems noted. Brother Myocardial infarct Liver cancer Surgical History Surgical History Hx of CABG Social History Social History Household Members: Family Housing: Apartment Do you presently have visiting nurse or other home services: No Alcohol intake: current Alcohol intake frequency: 3 or more drinks per day Alcohol type: beer Patient Tobacco Use Status: Current everyday Tobacco user Tobacco use type: Cigarette Cigarettes Per Day: 10 e-Cigarette/Vaping Use: Never Used Second Hand Smoke Exposure: No Advance Directives Date on File: 02/16/20 service: No Current occupational status: disabled Meds Allergies Allergy/AdvReac Type Severity Reaction Status Date / Time No Known Allergies Allergy Verified 06/06/21 11:09 Active Medications: Current Medications Acetaminophen (Acetaminophen 325 Mg Tablet) 650 mg PO Q6H PRN PRN Reason: Pain, Mild (Pain Scale 1-3) Albuterol Sulfate (Albuterol Sulfate 90 Mcg 8 Gm Inhaler) 1 puff INHALE Q4H PRN PRN Reason: Shortness Of Breath Aspirin (Aspirin Enteric Coated 81 Mg Tablet.) 81 mg PO DAILY [facility] Last Admin: 08/31/21 09:27 Dose: 81 mg Documented by: Heparin Sodium (Porcine) (Heparin Sodium,Porcine 5,000 Unit/Ml Vial) 5,000 unit SUBCUT Q8H [facility] Last Admin: 08/31/21 11:34 Dose: 5,000 unit Documented by: Sodium Chloride (Ns) 1,000 mls @ 100 mls/hr IVCONT .Q10H [facility] Last Admin: 08/31/21 16:13 Dose: 100 mls/hr Documented by: Methylprednisolone Sodium Succinate (Methylprednisolone Sod Succ 125 Mg/2 Ml Vial) 60 mg IVPUSH Q6H [facility] Last Admin: 08/31/21 14:16 Dose: 60 mg Documented by: Metoprolol Succinate (Metoprolol Succinate Er 50 Mg Tab.Er.24h) 50 mg PO DAILY [facility]; Protocol Last Admin: 08/31/21 09:27 Dose: 50 mg Documented by: Omeprazole (Omeprazole 20 Mg Capsule.) 20 mg PO BID@0630,1630 [facility] Last Admin: 08/31/21 16:15 Dose: 20 mg Documented by: Sodium Chloride (0.9 % Sodium Chloride Flush 3 Ml Syringe) 3 ml IVFLUSH QSHIFT [facility] Last Admin: 08/31/21 16:13 Dose: 3 ml Documented by: Sodium Zirconium Cyclosilicate (Sodium Zirconium Cyclosilicate 10 Gm Powd.Pack) 10 gm PO DAILY [facility] Stop: 09/02/21 08:59 Last Admin: 08/31/21 09:27 Dose: 10 gm Documented by: Zolpidem Tartrate (Zolpidem Tartrate 5 Mg Tablet) 5 mg PO BEDTIME PRN PRN Reason: insomnia Last Admin: 08/30/21 22:52 Dose: 5 mg Documented by: Home Medications Medication Instructions Recorded Confirmed Last Taken Type aspirin 81 mg tablet,delayed 81 mg PO DAILY 08/15/20 08/30/21 08/30/21 History release (Adult Aspirin Regimen) albuterol sulfate 90 mcg/actuation 1 inh INHALATION Q4H PRN 08/30/21 08/30/21 Unknown History aerosol inhaler (Ventolin HFA) Physical Exam Vital Signs: Last Vital Signs Temp 97.3 F 08/31/21 15:04 Pulse 58 08/31/21 15:04 Resp 20 08/31/21 15:04 BP 113/56 L 08/31/21 15:04 Pulse Ox 97 08/31/21 15:04 BMI result Body Mass Index 29.9 Const General: cooperative and no acute distress Orientation/consciousness: patient oriented x3 HEENT Head: Yes normocephalic and Yes atraumatic Neck Neck: Yes no JVD Resp Effort & Inspection: normal respiratory effort Auscultation: clear to auscultation bilaterally GI Auscultation: normal bowel sounds Neuro General: patient oriented x3 Extrem General: Yes edema Results Lab Results Result Diagrams: 08/31/21 06:01 08/31/21 06:01 Lab results: Chemistry 08/30/21 08/31/21 15:57 06:01 Sodium 134 L 138 Potassium 5.9 H 5.7 H Carbon Dioxide 22 24 BUN 23 H 22 H Creatinine 3.30 H 2.74 H Calcium 9.3 8.8 Phosphorus 4.5 Hematology 08/30/21 08/31/21 15:56 06:01 WBC 7.2 4.2 L Hgb 9.7 L 8.2 L Plt Count 185 147 L Urinalysis 08/30/21 18:14 Urine Color YELLOW Urine Appearance CLEAR Urine pH 6.0 Ur Specific [place] 1.010 Urine Protein TRACE Urine Glucose (UA) NEG Urine Ketones NEG Urine Blood 2+ H Urine Nitrite NEG Ur Leukocyte Esterase NEG Urine RBC 10-14 H Urine WBC 0 Ur Squamous Epith Cells TRACE Assessment and Plan (1) Acute kidney injury: Status: Acute (2) Hypertension: Qualifiers: Hypertension type: essential hypertension Qualified Code(s): I10 - Essential (primary) hypertension Status: Acute Plan #) STANFORD, non-oliguric His STANFORD is likely secondary to combination of NSAID use and ACEI which disrupted renal hemodynamics autoregulation. Appears to now have evidence of ischemic atn. Suggest additional 1 Liter of IVF's then hold off as there is some evidence of edema on PE. Hyperkelamia in setting of diminished distal Na delivery should improve with IVF's. Consider 10 G lokelma prn K> 5.0 He should refrain from nsaid use in future. Noted hematuria on UA, I have added addt'l workup for GN. No indication for renal biopsy at this time but will follow. Procedures Date of Service Date of Service: 08/31/21
[2021-08-31 19:01] VITALS: BP 133/62; PULSE 61; RESP 20; TEMP 37.3; O2SAT 97
[2021-08-31] MEDS: Zolpidem Tartrate 5 MG TABLET PO (22:47)
[2021-08-31 23:15] VITALS: BP 131/60; PULSE 57; RESP 16; TEMP 37.1
[2021-09-01] MEDS: 0.9 % Sodium Chloride 1,000 ML 100 ML IVCONT (01:20)
[2021-09-01] MEDS: methylPREDNISolone Sod Succ 125 MG/2 ML VIAL 60 MG IVPUSH ×3 (01:22→12:09)
[2021-09-01 03:05] VITALS: BP 143/47; PULSE 61; RESP 16; TEMP 37.6; O2SAT 97
[2021-09-01] MEDS: Heparin Sodium,Porcine 5,000 UNIT/ML VIAL 5000 UNIT SUBCUT ×2 (05:33→12:10)
[2021-09-01] MEDS: Omeprazole 20 MG CAPSULE.DR PO (05:34)
[2021-09-01 07:20] LABS: MANUAL DIFF FLAG NO
[2021-09-01 07:23] LABS: Hematocrit 26.2 % (42.0-52.0); Hemoglobin 8.4 g/dl (14.0-18.0); Imm Gran Abs Auto 0.03 X10*3/uL (0.00-0.03); Imm Gran Pct Auto 0.5 % (0.0-0.4); Lymphocytes Absolute Auto 0.8 X10*3/uL (1.2-4.9); Lymphocytes Percent Auto 11.7 % (20-40); Mean Corpuscular HGB Conc 32.1 g/dl (31.0-36.0); Mean Corpuscular Hemoglobin 31.3 pg (27.0-33.0); Mean Corpuscular Volume 97.8 fL (80.0-98.0); Mean Platelet Volume 10.7 fL (9.4-12.4); Monocytes Percent Auto 0.6 % (2-11); Neutrophils Absolute Auto 5.7 x10*3/uL (2.0-8.3); Neutrophils Percent Auto 87.2 % (45-73); Platelet Count 150 X10*3/uL (160-400); Red Blood Count 2.68 X10*6/uL (4.60-5.80); White Blood Count 6.6 X10*3/uL (4.8-10.8)
[2021-09-01 07:28] VITALS: BP 143/63; PULSE 69; RESP 16; TEMP 35.9; O2SAT 94
[2021-09-01 08:26] LABS: Alanine Aminotransferase 9 U/L (0-40); Albumin Level 3.2 g/dL (3.5-5.0); Alkaline Phosphatase 55 U/L (39-117); Anion Gap 12 (12-20); Aspartate Amino Transferase 13 U/L (5-37); Bilirubin Total 0.4 mg/dL (0.0-1.0); Blood Urea Nitrogen 16 mg/dL (9-16); Calcium 8.6 mg/dL (8.4-10.2); Carbon Dioxide 20 mmol/L (22-29); Chloride 109 mmol/L (96-108); Creatinine Clr Calc Pharmacy 44.9; Estimated Glomerular Filt Rate 35; Glucose Fasting 158 mg/dL (60-99); Potassium 4.9 mmol/L (3.3-5.1); Sodium 136 mmol/L (135-145); Total Protein 5.5 g/dL (6.5-8.0)
[2021-09-01] MEDS: Sodium Zirconium Cyclosilicate 10 GM POWD.PACK PO (09:15)
[2021-09-01] MEDS: Metoprolol Succinate ER 50 MG TAB.ER.24H PO (09:15)
[2021-09-01] MEDS: Aspirin Enteric Coated 81 MG TABLET.DR PO (09:15)
[2021-09-01 11:09] VITALS: BP 167/71; PULSE 69; RESP 16; TEMP 36.1; O2SAT 98
--- NOTE | 2021-09-01 14:18 | PM.DS ---
DS: Providers Provider Date of Service: 09/01/21 Date of admission: 08/30/21 18:37 Date of discharge: 09/01/21 Primary care physician: Boy Jorge MD Consults: 08/31/21 07:49 Consult to Nephrology Routine Consulting Provider: Nilson Chavez Reason for consultation: STANFORD DS: Diagnosis Discharge Diagnosis (1) Acute kidney injury: Status: Acute (2) Hypertension: Status: Acute DS: Summary Hospital Course Hospital Course: 61-year-old male presents today after routine labs from 06.01-07.26.? When questioned, he denies dehydration/diarrhea, toxin exposure, ingestions.? The only new medicine started was that he approximately 2 weeks ago.? He voices no complaints at this time. He does carry a history of coronary artery disease with CHF but states he has been pain free without issue for some time now.? He admits to drinking 10 beers a day and smoking half a pack a cigarettes but denies past history of alcohol withdrawal.? He will be admitted to telemetry IV volume replacement and renal consult in a.m. Hospital Course Admitted to telemetry; volume repleted. MALVIN-inhibitor and diuretic held. Seen in consultation by Nephrology who thought his STANFORD was rely clear secondary to NSAID use and lisinopril which disrupted his renal hemodynamics auto regulation. His creatinine trended down and at this point nephrology is comfortable with him being discharged to home off all NSAIDs and lisinopril to have follow-up labs done for 10/28/2021. He will follow with Renal in the [place] office this week. He follow was PCP in 1-2 weeks. Time Spent with Patient Time attestation: Total time spent providing and/or coordinating discharge services: Discharge coordination time: Greater than 30 minutes Quality: Safe Use of Opioids Does Pt have an Active Cancer Diagnosis on the Problem List?: No Quality: Stroke Does the patient have a stroke diagnosis?: No Physical Exam Vital Signs: Vital Signs: Last Vital Signs Temp 97.0 F 09/01/21 11:09 Pulse 69 09/01/21 11:09 Resp 16 09/01/21 11:09 BP 167/71 H 09/01/21 11:09 Pulse Ox 98 09/01/21 11:09 BMI result Body Mass Index 29.9 Const: Other: Awake alert oriented x3 no acute distress Resp: Other: Diminished all ju[place] with dense expiratory wheezes throughout Cardio: Other: Distant heart sounds; no S4; positive S1-S2; no S3 murmurs rubs or gallops GI: Other: Soft nontender nondistended with normoactive bowel sounds. There are no overt peritoneal signs Neuro: Other: Cranial nerves 2-12 grossly intact this tested. Motor is 5/5 all extremities. Sensation is intact. Cognition appropriate Extrem: Other: No edema bilaterally DS: Data Data Completed and Pending Labs on day of discharge: Laboratory Results - last 24 hr 08/31/21 09/01/21 09/01/21 17:04 06:58 06:58 WBC 6.6 RBC 2.68 L Hgb 8.4 L Hct 26.2 L MCV 97.8 MCH 31.3 MCHC 32.1 RDW 13.0 Plt Count 150 L MPV 10.7 Immature Gran % (Auto) 0.5 H Neut % (Auto) 87.2 H Lymph % (Auto) 11.7 L [place] % (Auto) 0.6 L Eos % (Auto) 0.0 Baso % (Auto) 0.0 Lymph # (Auto) 0.8 L [place] # (Auto) 0.0 L Eos # (Auto) 0.0 Baso # (Auto) 0.0 Abs Immat Gran (auto) 0.03 Absolute Neuts (auto) 5.7 Absolute Nucleated RBC 0.000 Nucleated RBC % (auto) 0.0 Sodium 136 Potassium 4.9 Chloride 109 H Carbon Dioxide 20 L Anion Gap 12 BUN 16 Creatinine 1.97 H Estim Creat Clear Calc 44.9 Estimated GFR 35 Fasting Glucose 158 H D Calcium 8.6 Total Bilirubin 0.4 AST 13 ALT 9 Alkaline Phosphatase 55 Lactate Dehydrogenase 113 L Total Protein 5.5 L Albumin 3.2 L Discharge Plan Discharge Patient Disposition: Home, Self-Care Discharge Diagnosis: STANFORD Referrals: Po,Boy Johnson MD [Primary Care Provider] - 1 Week Discharge Medications: New prednisone 10 mg tablet See Rx Instructions .Route .COMPLEX Qty: 45 0RF Rx Instructions: 10 mg orally; 5 tabs p.o. daily x3 days; 4 tabs p.o. daily x3 days; 3 tabs daily x3 days; 2 tabs daily x3 days; 1 tab daily x3 days Continued metoprolol succinate 50 mg tablet extended release 24 hr 50 mg PO DAILY Qty: 90 2RF albuterol sulfate [Ventolin HFA] 90 mcg/actuation HFA aerosol inhaler 1 inh INHALATION Q4H PRN (Reason: Shortness Of Breath) 0RF aspirin [Adult Aspirin Regimen] 81 mg tablet,delayed release (DR/EC) 81 mg PO DAILY 0RF rosuvastatin 40 mg tablet 40 mg PO DAILY 90 Days Qty: 90 2RF zolpidem 5 mg tablet 5 mg PO BEDTIME PRN (Reason: insomnia) Qty: 30 2RF omeprazole 20 mg capsule,delayed release(DR/EC) 20 mg PO BID 90 Days Qty: 180 2RF ezetimibe [Zetia] 10 mg tablet 10 mg PO DAILY Qty: 30 3RF Discontinued lisinopril 20 mg tablet 20 mg PO DAILY 90 Days Qty: 90 2RF Discharge Orders: Discharge Order (Routine); Ordered 09/01/21 Ordered By: Moiz Wen Diet: advance to usual diet Activity on Discharge: As tolerated Stand Alone Forms: Patient Portal Discharge page Care Plan Goals: Do not start lisinopril or diuretic. Follow-up with your PCP in [address] Guzman's office will call you with an appointment for this week. Health Concerns: Continued to drink plenty of fluids [facility] of Treatment[facility] Assessment: See discharge summary
--- NOTE | 2021-09-01 14:20 | MHC.CM.PN ---
Patient has been medically cleared for dc to home today, self care. Last IMM addressed yesterday.
[2021-09-02 04:20] LABS: ~HepC Num1 0.13 S/CO (0.00-0.79); ~Hepatitis C Antibody Nonreactive (Nonreactive)
[2021-09-02 04:41] LABS: HBS Num1 26.89 mIU/mL (0-7.99); HBc Num1 10.23 S/CO (0.00-0.79); HBsAGNum1 0.24 S/CO (0.00-0.99); Hepatitis B Surface Antigen Negative (Negative); ~Hepatitis B Surface Antibody REACTIVE (Nonreactive)
[2021-09-02 05:27] LABS: HBc Num2 10.25 S/CO; HBc Num3 10.37 S/CO; Hepatitis B Core Antibody Reactive (Nonreactive)
[2021-09-02 20:41] LABS: Complement C3 57 mg/dL (82-185)
[2021-09-03 14:36] LABS: Haptoglobin 172 mg/dL (43-212)
[2021-09-03 18:42] LABS: Anti Nuclear Antibody Screen POSITIVE (NEGATIVE); Anti Nuclear Antibody Titer 1:40 titer
[2021-09-03 21:16] LABS: Anti Glomerular Basement Memb <1.0 AI; Myeloperoxidase Antibody <1.0 AI; Proteinase 3 PR3 Antibodies <1.0 AI
== END 2021-09-01 14:59 | disposition home or self-care (01) | DRG 683 ==
LOC: HO.ED 18:31 → HO.EDOVER 18:42 → HO.IMC 18:53
PROVIDERS: Internal Medicine Nephrology; Nurse Practitioner Family; Admitting Provider Hospitalist; Emergency Provider Internal Medicine; PCP Internal Medicine; Visit Provider Hospitalist
DX: N17.9 Acute kidney failure, unspecified (principal); E87.1 Hypo-osmolality and hyponatremia; I25.2 Old myocardial infarction; I25.5 Ischemic cardiomyopathy; Z95.1 Presence of aortocoronary bypass graft; J43.1 Panlobular emphysema; I10 Essential (primary) hypertension; E87.5 Hyperkalemia; M10.9 Gout, unspecified; I25.10 Atherosclerotic heart disease of native coronary artery without angina pectoris; T39.395A Adverse effect of other nonsteroidal anti-inflammatory drugs [NSAID], initial encounter; T46.4X5A Adverse effect of angiotensin-converting-enzyme inhibitors, initial encounter; K21.9 Gastro-esophageal reflux disease without esophagitis; D64.9 Anemia, unspecified; F17.210 Nicotine dependence, cigarettes, uncomplicated; Z71.6 Tobacco abuse counseling; Z20.822 Contact with and (suspected) exposure to COVID-19; Z79.82 Long term (current) use of aspirin; Z79.899 Other long term (current) drug therapy
CPT/HCPCS: 36415; 76775; 80053; 80061; 81001; 82550; 82595; 82607; 82728; 82746; 83010; 83036; 83520; 83540; 83615; 83735; 84100; 85025; 85045; 86021; 86038; 86039; 86160; 86704; 86706; 86803; 87340; 87635; 93005; 96360; 99284; 99285; J2930

== ENCOUNTER 2021-09-03 06:58 | Outpatient (REF) | payer MEDICARE, OTHER, SELFPAY ==
[2021-09-03 07:57] LABS: Cholesterol 113 mg/dL; HDL Cholesterol 43 mg/dL; LDL Cholesterol Calculated 51 mg/dl; Triglycerides 95 mg/dL
== END 2021-09-03 06:59 | disposition home or self-care (01) ==
LOC: HO.LAB 06:58
PROVIDERS: PCP Internal Medicine; Visit Provider Internal Medicine Cardiovascular Disease
DX: I25.10 Atherosclerotic heart disease of native coronary artery without angina pectoris (principal)
CPT/HCPCS: 36415; 80061

== ENCOUNTER 2021-09-09 22:11 | Inpatient (IN) | payer MEDICARE, OTHER, SELFPAY ==
--- NOTE | 2021-09-09 | ECG_ITS ---
Test Reason : chest pain Blood Pressure : / mmHG Vent. Rate : 087 BPM Atrial Rate : 087 BPM P-R Int : 158 ms QRS Dur : 138 ms QT Int : 408 ms P-R-T Axes : 074 110 055 degrees QTc Int : 490 ms Sinus rhythm with 3 beat NSVT Right bundle branch block Left posterior fascicular block Bifascicular block Possible Inferior infarct (cited on or before 27-DEC-2011) Abnormal ECG When compared with ECG of 30-AUG-2021 20:48, Premature ventricular complexes are now Present Vent. rate has increased BY 29 BPM QT has lengthened Referred By: Generic ED Physician Electronically Signed By:CAM LOPEZ MD
--- NOTE | ~2021-09-09 | XR_ITS ---
EXAMINATION: XR CHEST CLINICAL INFORMATION: Chest pain COMPARISON: 05/10/2013 TECHNIQUE: Frontal view of the chest was obtained. FINDINGS: The lungs appear somewhat hyperinflated. There is blunting of the left costophrenic angle suspicious for small basilar pleural effusion or potentially scarring. There is opacity at the left retrocardiac left base which appears predominantly curvilinear. Right lung is well-aerated. No evidence of pneumothorax or pulmonary edema. Cardiac size is within normal limits. Sternal wires are present. No acute osseous findings are seen. XR/XR chest 1V IMPRESSION: Small left pleural effusion versus pleural thickening/scarring. Curvilinear left basilar opacity may be due to scarring or atelectasis, new since 05/10/2013.
--- NOTE | ~2021-09-09 | NM_ITS ---
Myocardial perfusion study Indication: Chest pain with elevated troponins with prior coronary disease to evaluate for myocardial ischemia Technique: The patient was brought in for a Lexiscan perfusion study on 09/12/2021. Patient performed low-level exercise and was injected 0.4 mg of Lexiscan intravenously. Within a minute of injection, 30 mCi of sestamibi was given intravenously. Images were obtained using the SPECT gamma camera interlaced with the gating device. Images were obtained in supine position. Resting perfusion study was performed on 09/11/2021. Patient was administered 30 mCi of sestamibi intravenously at rest. Images were then obtained in supine position. Images obtained with and without CT attenuation. Total DLP 92 mGy-cm. Images were processed with the software and compared side to side in short axis, horizontal long axis and vertical long axis views. Findings: The stress perfusion study showed non attenuated images show absent uptake in the mid anterior wall as well as basal and mid inferior wall and the chest and inferolateral wall reduced uptake in the basal anterior, apical wall of the LV myocardium. Is also absent uptake in the distal inferolateral wall of the LV myocardium. Attenuated corrected images show similar finding mild thinning of the lateral wall. The gated study shows reduced LV systolic function with calculated LVEF of 43%. LV cavity is mildly to moderately dilated size. The gated study shows absent wall thickening and contraction of basal and mid inferior as well as mid anterior segments. Resting study shows non attenuated images show no significant changes. Attenuation corrected images show the lateral uptake is suggestive of osmar-infarct ischemia. Gating at rest reveals basal and mid inferior as well as mid anterior wall motion abnormality with ejection fraction at 42%. The findings are consistent with transmural infarct of the basal and mid inferior as well as mid anterior and nontransmural infarct of the apex, inferoapical as well as inferolateral wall with osmar-infarct ischemia of the inferolateral wall.. NM/NM julia perf SPECT rest & str Impression: 1. Myocardial perfusion imaging study shows mostly posterior infarct as noted above different territories with osmar-infarct ischemia of the inferolateral wall. 2. Gated LVEF is 42% 3. Transient ischemic dilatation not present but LV cavity is dilated EKG nondiagnostic for ischemia
[2021-09-09 23:12] LABS: MANUAL DIFF FLAG NO
[2021-09-09 23:14] LABS: Hematocrit 28.8 % (42.0-52.0); Hemoglobin 9.2 g/dl (14.0-18.0); Imm Gran Abs Auto 0.14 X10*3/uL (0.00-0.03); Imm Gran Pct Auto 1.5 % (0.0-0.4); Lymphocytes Absolute Auto 1.3 X10*3/uL (1.2-4.9); Lymphocytes Percent Auto 13.7 % (20-40); Mean Corpuscular HGB Conc 31.9 g/dl (31.0-36.0); Mean Corpuscular Hemoglobin 31.8 pg (27.0-33.0); Mean Corpuscular Volume 99.7 fL (80.0-98.0); Mean Platelet Volume 10.6 fL (9.4-12.4); Monocytes Absolute Auto 0.7 X10*3/uL (0.1-1.2); Monocytes Percent Auto 7.3 % (2-11); Neutrophils Absolute Auto 7.3 x10*3/uL (2.0-8.3); Neutrophils Percent Auto 77.5 % (45-73); Platelet Count 182 X10*3/uL (160-400); Red Blood Count 2.89 X10*6/uL (4.60-5.80); Red Cell Distribution Width 13.2 % (11.0-16.0); White Blood Count 9.4 X10*3/uL (4.8-10.8)
[2021-09-09 23:26] VITALS: BP 143/56; PULSE 72; RESP 20; TEMP 36.4; O2SAT 98; BMI 37.3
[2021-09-09 23:27] LABS: Alanine Aminotransferase 44 U/L (0-40); Albumin Level 3.8 g/dL (3.5-5.0); Alkaline Phosphatase 44 U/L (39-117); Anion Gap 12 (12-20); Aspartate Amino Transferase 30 U/L (5-37); Bilirubin Total 0.5 mg/dL (0.0-1.0); Blood Urea Nitrogen 15 mg/dL (9-16); Calcium 8.8 mg/dL (8.4-10.2); Carbon Dioxide 25 mmol/L (22-29); Chloride 101 mmol/L (96-108); Estimated Glomerular Filt Rate 50; Glucose Random 156 mg/dL (60-115); Potassium 4.8 mmol/L (3.3-5.1); Sodium 133 mmol/L (135-145); Total Protein 6.5 g/dL (6.5-8.0)
[2021-09-10 01:40] VITALS: BP 135/55; PULSE 56; RESP 16; O2SAT 98
--- NOTE | 2021-09-10 01:53 | PC.NURSE ---
IV established, repeat labs obtained. Pt stated he is pain free @ this time. VSS. Pt awaiting primary MD salmeron.
[2021-09-10 02:04] LABS: B Type Natriuretic Peptide 683 pg/mL (<100)
[2021-09-10 02:06] LABS: Troponin-I High Sensitivity 69.7 ng/L (<3.5-35.0)
--- NOTE | 2021-09-10 02:25 | ECG_ITS ---
Test Reason : elevated troponin Blood Pressure : / mmHG Vent. Rate : 063 BPM Atrial Rate : 063 BPM P-R Int : 158 ms QRS Dur : 138 ms QT Int : 446 ms P-R-T Axes : 074 092 068 degrees QTc Int : 456 ms Sinus rhythm with occasional Premature ventricular complexes Left posterior fascicular block Right bundle branch block Possible Inferior infarct (cited on or before 27-DEC-2011) Abnormal ECG When compared with ECG of 09-SEP-2021 22:55, No significant change was found Referred By: Maryam Miranda Electronically Signed By:CAM LOPEZ MD
[2021-09-10] MEDS: Aspirin 81 MG TAB.CHEW 324 MG PO (02:33)
--- NOTE | 2021-09-10 02:36 | PC.NURSE ---
veterinary technician assistant at bedside for repeat EKG. Pt medicated per JUL, pt remains pain free. MD at bedside for primary eval.
--- NOTE | 2021-09-10 02:54 | ED_ITS ---
HPI - Chest Pain General Chief Complaint: Chest Pain Stated Complaint: severe chest pains Time Seen by Provider: 09/09/21 23:16 Source: patient and family Mode of arrival: ambulatory History of Present Illness HPI narrative: 61-year-old male with history of alcohol use, smoker, CAD as well as hypertension who presents for an episode of chest pressure that he qualifies as 10/10 while lying down. Patient states that he took a nitro after which he felt much better and has had no further chest pain. Patient also reports that he was discharged over a week ago on Thursday and since that time he has experience progressive bilateral lower extremity swelling, dyspnea on exertion, denies cough, and states he has had to be propped up more while sleeping. Patient states that the only medication change he was instructed on was to stop lisin opril. Related Data Home Medications Medication Instructions Recorded Confirmed aspirin 81 mg tablet 81 mg PO DAILY 09/10/21 09/10/21 ezetimibe 10 mg tablet 10 mg PO DAILY 09/10/21 09/10/21 lisinopril 20 mg tablet 20 mg PO DAILY 09/10/21 09/10/21 metoprolol succinate 50 mg 50 mg PO DAILY 09/10/21 09/10/21 tablet,extended release 24 hr omeprazole 20 mg capsule,delayed 20 mg PO BID 09/10/21 09/10/21 release rosuvastatin 40 mg tablet 40 mg PO DAILY 09/10/21 09/10/21 zolpidem 5 mg tablet 5 mg PO BEDTIME PRN 09/10/21 09/10/21 Allergies Allergy/AdvReac Type Severity Reaction Status Date / Time No Known Allergies Allergy Verified 09/09/21 23:28 Review of Systems Review of Systems: Pertinent positives and negatives as stated in HPI 10 point review of systems is otherwise negative. [facility] Past Medical History Source: nursing notes reviewed Medical History Colon cancer screening Colonoscopy refused COPD (chronic obstructive pulmonary disease) Coronary artery disease GERD (gastroesophageal reflux disease) Hypercholesterolemia Hypertension Insomnia Ischemic cardiomyopathy Obesity (BMI 30-39.9) Umbilical hernia Surgical History Hx of CABG Family History Family History Father No problems noted. Mother No problems noted. Sister No problems noted. Sister No problems noted. Brother No problems noted. Brother Myocardial infarct Liver cancer Social History Social History Household Members: Family Housing: Apartment Do you presently have visiting nurse or other home services: No Alcohol intake: current Alcohol intake frequency: 3 or more drinks per day Alcohol type: beer Patient Tobacco Use Status: Current everyday Tobacco user Tobacco use type: Cigarette Cigarettes Per Day: 10 e-Cigarette/Vaping Use: Never Used Second Hand Smoke Exposure: No Advance Directives: No Advance Directives Information Provided: No Advance Directives Date on File: 02/16/20 service: No Current occupational status: disabled Physical Exam Vital Signs: Vital Signs: Last Vital Signs Temp 97.6 F 09/09/21 23:26 Pulse 79 09/10/21 03:00 Resp 24 H 09/10/21 03:00 BP 133/42 L 09/10/21 03:00 Pulse Ox 97 09/10/21 03:00 BMI result Body Mass Index 37.3 VITAL SIGNS: Reviewed. GENERAL: Well developed, well nourished, in no acute distress. HEAD: Normocephalic/atraumatic EYES: PERRLA, EOMI EARS: Ext canals without abnormality OROPHARYNX: no oral lesions noted, posterior pharynx clear LUNGS: Decreased bibasilar breath sounds, minimal expiratory wheeze otherwise no tachypnea. SpO2<97> CARDIOVASCULAR: Regular rate and rhythm without noted murmurs, no JVD but bilateral lower extremity pitting edema 2 to 3+ ABDOMEN: Soft, non-tender, non-distended with bowel sounds. MUSCULOSKELETAL: No tenderness, deformities, or effusions noted on gross inspection. EXTREMITIES: No cyanosis, clubbing or edema. SKIN: Inspection of the skin reveals no rashes NEUROLOGIC: Alert and oriented x 4. Strength and sensation to light touch were grossly intact x 4. Course Course Course Narrative: 61-year-old male with history and clinical presentation consistent with acute CHF exacerbation with suspected ACS. On review of all investigations there is noted increase on serial troponins without EKG changes, patient has remained chest pain-free well here in the emergency room, received aspirin, received Lasix and will be started on heparin. Case discussed with cardiology as well as inpatient hospitalist, the latter of which accepts admission. MDM - Chest Pain Lab Data Result diagrams: 09/09/21 23:07 09/09/21 23:07 Labs: Lab Results 09/09/21 09/09/21 09/09/21 Range/Units 23:07 23:07 23:07 WBC 9.4 (4.8-10.8) X10*3/uL RBC 2.89 L (4.60-5.80) X10*6/uL Hgb 9.2 L (14.0-18.0) g/dl Hct 28.8 L (42.0-52.0) % MCV 99.7 H (80.0-98.0) fL MCH 31.8 (27.0-33.0) pg MCHC 31.9 (31.0-36.0) g/dl RDW 13.2 (11.0-16.0) % Plt Count 182 (160-400) X10*3/uL MPV 10.6 (9.4-12.4) fL Immature Gran % (Auto) 1.5 H (0.0-0.4) % Neut % (Auto) 77.5 H (45-73) % Lymph % (Auto) 13.7 L (20-40) % [place] % (Auto) 7.3 (2-11) % Eos % (Auto) 0.0 (0-4) % Baso % (Auto) 0.0 (0-2) % Lymph # (Auto) 1.3 (1.2-4.9) X10*3/uL [place] # (Auto) 0.7 (0.1-1.2) X10*3/uL Eos # (Auto) 0.0 (0.0-0.4) X10*3/uL Baso # (Auto) 0.0 (0.0-0.2) X10*3/uL Abs Immat Gran (auto) 0.14 H (0.00-0.03) X10*3/uL Absolute Neuts (auto) 7.3 (2.0-8.3) x10*3/uL Absolute Nucleated RBC 0.000 (0.0-0.012) X10*3/uL Nucleated RBC % (auto) 0.0 (0.0-0.2) /100WBC D-Dimer High Sensitivty NG/ML Sodium 133 L (135-145) mmol/L Potassium 4.8 (3.3-5.1) mmol/L Chloride 101 (96-108) mmol/L Carbon Dioxide 25 (22-29) mmol/L Anion Gap 12 (12-20) BUN 15 (9-16) mg/dL Creatinine 1.44 H (0.5-1.4) mg/dL Estim Creat Clear Calc TNP Estimated GFR 50 Random Glucose 156 H D (60-115) mg/dL Calcium 8.8 (8.4-10.2) mg/dL Total Bilirubin 0.5 (0.0-1.0) mg/dL AST 30 D (5-37) U/L ALT 44 H (0-40) U/L Alkaline Phosphatase 44 (39-117) U/L Troponin I High Sens 30.0 (<3.5-35.0) ng/L B-Natriuretic Peptide (<100) pg/mL Total Protein 6.5 (6.5-8.0) g/dL Albumin 3.8 (3.5-5.0) g/dL Lipase 49 (8-78) U/L COVID-19 (CED) (Negative) COVID-19 Clin Com 09/10/21 09/10/21 09/10/21 Range/Units 01:39 01:39 02:35 WBC (4.8-10.8) X10*3/uL RBC (4.60-5.80) X10*6/uL Hgb (14.0-18.0) g/dl Hct (42.0-52.0) % MCV (80.0-98.0) fL MCH (27.0-33.0) pg MCHC (31.0-36.0) g/dl RDW (11.0-16.0) % Plt Count (160-400) X10*3/uL MPV (9.4-12.4) fL Immature Gran % (Auto) (0.0-0.4) % Neut % (Auto) (45-73) % Lymph % (Auto) (20-40) % [place] % (Auto) (2-11) % Eos % (Auto) (0-4) % Baso % (Auto) (0-2) % Lymph # (Auto) (1.2-4.9) X10*3/uL [place] # (Auto) (0.1-1.2) X10*3/uL Eos # (Auto) (0.0-0.4) X10*3/uL Baso # (Auto) (0.0-0.2) X10*3/uL Abs Immat Gran (auto) (0.00-0.03) X10*3/uL Absolute Neuts (auto) (2.0-8.3) x10*3/uL Absolute Nucleated RBC (0.0-0.012) X10*3/uL Nucleated RBC % (auto) (0.0-0.2) /100WBC D-Dimer High Sensitivty NG/ML Sodium (135-145) mmol/L Potassium (3.3-5.1) mmol/L Chloride (96-108) mmol/L Carbon Dioxide (22-29) mmol/L Anion Gap (12-20) BUN (9-16) mg/dL Creatinine (0.5-1.4) mg/dL Estim Creat Clear Calc Estimated GFR Random Glucose (60-115) mg/dL Calcium (8.4-10.2) mg/dL Total Bilirubin (0.0-1.0) mg/dL AST (5-37) U/L ALT (0-40) U/L Alkaline Phosphatase (39-117) U/L Troponin I High Sens 69.7 H D (<3.5-35.0) ng/L B-Natriuretic Peptide 683 H (<100) pg/mL Total Protein (6.5-8.0) g/dL Albumin (3.5-5.0) g/dL Lipase (8-78) U/L COVID-19 (CED) Negative (Negative) COVID-19 Clin Com See Note 09/10/21 Range/Units 02:43 WBC (4.8-10.8) X10*3/uL RBC (4.60-5.80) X10*6/uL Hgb (14.0-18.0) g/dl Hct (42.0-52.0) % MCV (80.0-98.0) fL MCH (27.0-33.0) pg MCHC (31.0-36.0) g/dl RDW (11.0-16.0) % Plt Count (160-400) X10*3/uL MPV (9.4-12.4) fL Immature Gran % (Auto) (0.0-0.4) % Neut % (Auto) (45-73) % Lymph % (Auto) (20-40) % [place] % (Auto) (2-11) % Eos % (Auto) (0-4) % Baso % (Auto) (0-2) % Lymph # (Auto) (1.2-4.9) X10*3/uL [place] # (Auto) (0.1-1.2) X10*3/uL Eos # (Auto) (0.0-0.4) X10*3/uL Baso # (Auto) (0.0-0.2) X10*3/uL Abs Immat Gran (auto) (0.00-0.03) X10*3/uL Absolute Neuts (auto) (2.0-8.3) x10*3/uL Absolute Nucleated RBC (0.0-0.012) X10*3/uL Nucleated RBC % (auto) (0.0-0.2) /100WBC D-Dimer High Sensitivty 232 NG/ML Sodium (135-145) mmol/L Potassium (3.3-5.1) mmol/L Chloride (96-108) mmol/L Carbon Dioxide (22-29) mmol/L Anion Gap (12-20) BUN (9-16) mg/dL Creatinine (0.5-1.4) mg/dL Estim Creat Clear Calc Estimated GFR Random Glucose (60-115) mg/dL Calcium (8.4-10.2) mg/dL Total Bilirubin (0.0-1.0) mg/dL AST (5-37) U/L ALT (0-40) U/L Alkaline Phosphatase (39-117) U/L Troponin I High Sens (<3.5-35.0) ng/L B-Natriuretic Peptide (<100) pg/mL Total Protein (6.5-8.0) g/dL Albumin (3.5-5.0) g/dL Lipase (8-78) U/L COVID-19 (CED) (Negative) COVID-19 Clin Com Discharge Plan Discharge Clinical Impression: Chest pain, ACS (acute coronary syndrome), CHF exacerbation Patient Disposition: Admitted As Inpatient
[2021-09-10 02:56] LABS: COVID-19 Test Negative (Negative)
[2021-09-10 03:00] VITALS: BP 133/42; PULSE 79; RESP 24; O2SAT 97
[2021-09-10] MEDS: Furosemide 100 MG/10 ML VIAL 60 MG IVPUSH (03:01)
[2021-09-10 03:03] LABS: Lipase 49 U/L (8-78)
[2021-09-10 03:05] LABS: D Dimer High Sensitivity 232 NG/ML
[2021-09-10 03:36] LABS: Prothrombin Time 10.9 SEC (9.9-13.0)
[2021-09-10 03:39] LABS: Partial Thromboplastin Time 23.8 SEC (24.1-38.0)
[2021-09-10 03:42] VITALS: BMI 30.4
[2021-09-10] MEDS: Heparin Sodium,Porcine 5,000 UNIT/ML VIAL 4000 UNIT IVPUSH (04:21)
[2021-09-10] MEDS: Heparin Sodium,Porcine/1/2NS 25,000 UNIT/250 ML IV.SOLN 10 UNIT IVCONT (04:31)
[2021-09-10 04:37] VITALS: BP 125/50; PULSE 56; RESP 20; O2SAT 97
--- NOTE | 2021-09-10 04:37 | PC.NURSE ---
Hospitalist at bedside. Heparin infusing per MAR @ 10 ml/hr, PTTHD due @ 1030, order placed. VSS, pt continues denying pain, aware of plan to admit. Continue to monitor.
--- NOTE | 2021-09-10 04:44 | PC.NURSE ---
Report given [facility].
[2021-09-10 06:18] VITALS: BP 125/62; PULSE 60; RESP 9; O2SAT 98
--- NOTE | 2021-09-10 06:25 | P.HPHOSP_ITS ---
History of Present Illness Date of Service: 09/10/21 Chief Complaint: Chest pain 61-year-old male with a past medical history of hypertension, hyperlipidemia, ischemic cardiomyopathy presented to the hospital with a chief complaint of chest pain, shortness of breath, leg swelling. Patient reports that he was recently admitted to the hospital for renal insufficiency; since he left home he started to develop swelling in his legs; also complains of shortness of breath and dyspnea on exertion with occasional orthopnea. Denies any shortness of breath at rest. Denies any cough or sputum production. Denies any fevers and chills. Denies any GI symptoms. Reports he has been feeling tired. Review of all other systems is negative except mentioned above ER course: Per ER team patient noted to have elevated proBNP, pedal edema; troponins elevated; EKG nonischemic; given concerns for NSTEMI discussed with Cardiology, suggested heparin drip. Patient was also given Lasix 60 mg IV. Admitted to the hospital for further management. [facility] Medical History Colon cancer screening Colonoscopy refused COPD (chronic obstructive pulmonary disease) Coronary artery disease GERD (gastroesophageal reflux disease) Hypercholesterolemia Hypertension Insomnia Ischemic cardiomyopathy Obesity (BMI 30-39.9) Umbilical hernia Family History Father No problems noted. Mother No problems noted. Sister No problems noted. Sister No problems noted. Brother No problems noted. Brother Myocardial infarct Liver cancer Surgical History Hx of CABG Social History Household Members: Family Housing: Apartment Do you presently have visiting nurse or other home services: No Alcohol intake: current Alcohol intake frequency: 3 or more drinks per day Alcohol type: beer Patient Tobacco Use Status: Current everyday Tobacco user Tobacco use type: Cigarette Cigarettes Per Day: 10 e-Cigarette/Vaping Use: Never Used Second Hand Smoke Exposure: No Advance Directives: No Advance Directives Information Provided: No Advance Directives Date on File: 02/16/20 service: No Current occupational status: disabled Meds Allergies Allergy/AdvReac Type Severity Reaction Status Date / Time No Known Allergies Allergy Verified 09/09/21 23:28 Active Medications: Current Medications Acetaminophen (Acetaminophen 325 Mg Tablet) 650 mg PO Q6H PRN PRN Reason: Pain, Mild (Pain Scale 1-3) Furosemide (Furosemide 40 Mg/4 Ml Vial) 40 mg IVPUSH DAILY [facility]; Protocol Heparin Sodium (Porcine) (Heparin Sodium,Porcine 5,000 Unit/Ml Vial) 3,850 unit IVPUSH PROTOCOL BOLUS PRN; Protocol PRN Reason: 40 unit/kg - Heparin Protocol Heparin Sodium (Porcine) (Heparin Sodium,Porcine 5,000 Unit/Ml Vial) 7,700 unit IVPUSH PROTOCOL BOLUS PRN; Protocol PRN Reason: 80 unit/kg - Heparin Protocol Heparin Sodium/Sodium Chloride () 25,000 unit in 250 mls @ 0 mls/hr IVCONT .Q0M [facility]; Protocol Last Admin: 09/10/21 04:31 Dose: 10.38 units/kg/hr, 10 mls/hr Documented by: Melatonin (Melatonin 3 Mg Tablet) 6 mg PO BEDTIME PRN PRN Reason: Insomnia Nitroglycerin (Nitroglycerin 0.4 Mg Tab.Subl) 0.4 mg SUBLINGUAL Q5MX3 PRN PRN Reason: Chest Pain Sodium Chloride (0.9 % Sodium Chloride Flush 3 Ml Syringe) 3 ml IVFLUSH QSHIFT [facility] Home Medications Medication Instructions Recorded Confirmed Last Taken Type aspirin 81 mg tablet 81 mg PO DAILY 09/10/21 09/10/21 09/09/21 08:00 History ezetimibe 10 mg tablet 10 mg PO DAILY 09/10/21 09/10/21 09/09/21 08:00 History lisinopril 20 mg tablet 20 mg PO DAILY 09/10/21 09/10/21 09/02/21 History metoprolol succinate 50 mg 50 mg PO DAILY 09/10/21 09/10/21 09/09/21 08:00 History tablet,extended release 24 hr omeprazole 20 mg capsule,delayed 20 mg PO BID 09/10/21 09/10/21 09/09/21 08:00 History release rosuvastatin 40 mg tablet 40 mg PO DAILY 09/10/21 09/10/21 09/09/21 08:00 History zolpidem 5 mg tablet 5 mg PO BEDTIME PRN 09/10/21 09/10/21 09/07/21 History Physical Exam Vital Signs and Narrative: Vital Signs: Last Vital Signs Temp 97.6 F 09/09/21 23:26 Pulse 60 09/10/21 06:18 Resp 9 L 09/10/21 06:18 BP 125/62 09/10/21 06:18 Pulse Ox 98 09/10/21 06:18 BMI result Body Mass Index 30.4 Gen: Appears be in no acute distress HEENT: NCAT, Moist mucosa. Pulmonary: Final crackles present CVS: Normal S1-S2 Abdomen: BS+, Soft, Nontender Extremities: Warm well perfused; 2+ pitting edema Neuro: Alert and awake. Results Labs CBC and Chem 7: 09/09/21 23:07 09/09/21 23:07 Labs: Laboratory Results - last 24 hr 09/09/21 09/09/21 09/09/21 23:07 23:07 23:07 MCV 99.7 H MCH 31.8 MCHC 31.9 RDW 13.2 Plt Count 182 MPV 10.6 Immature Gran % (Auto) 1.5 H Neut % (Auto) 77.5 H Lymph % (Auto) 13.7 L [place] % (Auto) 7.3 Eos % (Auto) 0.0 Baso % (Auto) 0.0 Lymph # (Auto) 1.3 [place] # (Auto) 0.7 Eos # (Auto) 0.0 Baso # (Auto) 0.0 Abs Immat Gran (auto) 0.14 H Absolute Neuts (auto) 7.3 Absolute Nucleated RBC 0.000 Nucleated RBC % (auto) 0.0 PT INR APTT D-Dimer High Sensitivty Anion Gap 12 Estim Creat Clear Calc TNP Estimated GFR 50 Random Glucose 156 H D Calcium 8.8 Total Bilirubin 0.5 AST 30 D ALT 44 H Alkaline Phosphatase 44 Troponin I High Sens 30.0 B-Natriuretic Peptide Total Protein 6.5 Albumin 3.8 Lipase 49 COVID-19 (CED) COVID-19 Clin Com 09/10/21 09/10/21 09/10/21 01:39 01:39 02:35 MCV MCH MCHC RDW Plt Count MPV Immature Gran % (Auto) Neut % (Auto) Lymph % (Auto) [place] % (Auto) Eos % (Auto) Baso % (Auto) Lymph # (Auto) [place] # (Auto) Eos # (Auto) Baso # (Auto) Abs Immat Gran (auto) Absolute Neuts (auto) Absolute Nucleated RBC Nucleated RBC % (auto) PT INR APTT D-Dimer High Sensitivty Anion Gap Estim Creat Clear Calc Estimated GFR Random Glucose Calcium Total Bilirubin AST ALT Alkaline Phosphatase Troponin I High Sens 69.7 H D B-Natriuretic Peptide 683 H Total Protein Albumin Lipase COVID-19 (CED) Negative COVID-19 Clin Com See Note 09/10/21 02:43 MCV MCH MCHC RDW Plt Count MPV Immature Gran % (Auto) Neut % (Auto) Lymph % (Auto) [place] % (Auto) Eos % (Auto) Baso % (Auto) Lymph # (Auto) [place] # (Auto) Eos # (Auto) Baso # (Auto) Abs Immat Gran (auto) Absolute Neuts (auto) Absolute Nucleated RBC Nucleated RBC % (auto) PT 10.9 INR 1.0 APTT 23.8 L D-Dimer High Sensitivty 232 Anion Gap Estim Creat Clear Calc Estimated GFR Random Glucose Calcium Total Bilirubin AST ALT Alkaline Phosphatase Troponin I High Sens B-Natriuretic Peptide Total Protein Albumin Lipase COVID-19 (CED) COVID-19 Clin Com Imaging Radiologist's Impressions: Impressions Chest X-Ray 09/10/21 00:12 IMPRESSION: Small left pleural effusion versus pleural thickening/scarring. Curvilinear left basilar opacity may be due to scarring or atelectasis, new since 05/10/2013. Assessment and Plan (1) Chest pain: Status: Acute (2) CHF exacerbation: Status: Acute Plan 61-year-old male with a past medical history of hypertension, hyperlipidemia, is chemic cardiomyopathy, CKD presented to the hospital with a chief complaint of chest pain/shortness of breath/leg swelling. Noted to have following conditions CHF exacerbation: ECHO: Number 2020 showed EF of 30-35%; patient not on Lasix at home. Noted to elevated proBNP and pedal edema Patient received 60 mg of Lasix IV in the ER Will give Lasix 40 mg IV daily Cardiology consult Daily weights and I's and O's Chest pain: Currently improved. Sublingual nitroglycerin p.r.n. EKG nonischemic Troponin 30-69.7 Given concerns for NSTEMI patient was started on heparin drip in the ER. Will await further recommendations from Cardiology Chronic kidney disease: Patient's creatinine on presentation is 1.4. Baseline creatinine around 1.2. Monitor renal function while diuresing. DVT prophylaxis: Patient on heparin drip Code status: Full code Quality Stroke Does the patient have a stroke diagnosis?: No VTE Prior VTE?: No VTE Risk Level:: Medical - moderate - high VTE Device Contraindication: Treatment Not Indicated VTE Drug Contraindication: N/A - Med Ordered
--- NOTE | 2021-09-10 07:34 | PC.NURSE ---
Pt A&OX4, LCA, minimal swelling to BLE R worse than L at this time with pitting. NSR in the 60's on the monitor, no complaints of CP, good urine output. Call [place]hawa within reach, will continue to monitor.
--- NOTE | 2021-09-10 08:00 | PHA.MEDREC ---
Pharmacy Consult ? Medication Reconciliation Pharmacy has completed the medication reconciliation. Verified with patient. Thanks Delvin
[2021-09-10 08:02] VITALS: BP 130/60; PULSE 63; RESP 12; O2SAT 97
[2021-09-10] MEDS: Metoprolol Succinate ER 50 MG TAB.ER.24H PO (09:50)
[2021-09-10] MEDS: Aspirin Enteric Coated 81 MG TABLET.DR PO (09:50)
[2021-09-10] MEDS: Ezetimibe 10 MG TABLET PO (09:50)
[2021-09-10] MEDS: Furosemide 40 MG/4 ML VIAL IVPUSH (09:50)
[2021-09-10] MEDS: lisinopriL 20 MG TABLET PO (09:50)
--- NOTE | 2021-09-10 10:24 | MHC.CM.PN ---
Attempted to meet with patient in regards to discharge planning. Patient currently sleeping. No family present. Will attempt to meet with patient again. Continue to monitor for d/c needs.
--- NOTE | 2021-09-10 13:19 | PM.EVENT ---
Event Note Date of Service: 09/10/21 Event Note: Chart reviewed patient examined; exam essentially unchanged from admit. Will continue on heparin drip pending Cardiology consult
[2021-09-10 13:34] LABS: Troponin-I High Sensitivity 90.5 ng/L (<3.5-35.0)
--- NOTE | 2021-09-10 14:10 | P.CONCA_ITS ---
History of Present Illness History of Present Illness Date of Service: 09/10/21 Chief complaint: Chest Pain, nstemi Narrative: 61-year-old gentleman with background history of coronary disease with previous bypass surgery has ischemic cardiomyopathy with ejection fraction of 30 35%. He is here because he noticed lower extremity edema and did a Google search. He noted that a heart attack can cause edema which made him quite anxious and panicked and he had chest pressure. He said the chest pressure lasted for 20 30 minutes and relieved with nitroglycerin. With these symptoms he presented to [facility] and ruled in for mild NSTEMI with troponins of 30, 69 and 90. EKG has no dynamic changes. Overall it he is clinically stable. He was started on heparin drip by the admitting team for NSTEMI. FORMERLY [facility] Past Medical History Medical History Colon cancer screening Colonoscopy refused COPD (chronic obstructive pulmonary disease) Coronary artery disease GERD (gastroesophageal reflux disease) Hypercholesterolemia Hypertension Insomnia Ischemic cardiomyopathy Obesity (BMI 30-39.9) Umbilical hernia Family History Family History Father No problems noted. Mother No problems noted. Sister No problems noted. Sister No problems noted. Brother No problems noted. Brother Myocardial infarct Liver cancer Surgical History Surgical History Hx of CABG Social History Social History Household Members: Family Housing: Apartment Do you presently have visiting nurse or other home services: No Alcohol intake: current Alcohol intake frequency: 3 or more drinks per day Alcohol type: beer Patient Tobacco Use Status: Current everyday Tobacco user Tobacco use type: Cigarette Cigarettes Per Day: 10 e-Cigarette/Vaping Use: Never Used Second Hand Smoke Exposure: No Advance Directives: No Advance Directives Information Provided: No Advance Directives Date on File: 02/16/20 service: No Current occupational status: disabled Meds Allergies Allergy/AdvReac Type Severity Reaction Status Date / Time No Known Allergies Allergy Verified 09/09/21 23:28 Active Medications: Current Medications Acetaminophen (Acetaminophen 325 Mg Tablet) 650 mg PO Q6H PRN PRN Reason: Pain, Mild (Pain Scale 1-3) Aspirin (Aspirin Enteric Coated 81 Mg Tablet.) 81 mg PO DAILY [facility] Last Admin: 09/10/21 09:50 Dose: 81 mg Documented by: Atorvastatin Calcium (Atorvastatin Calcium 80 Mg Tablet) 80 mg PO BEDTIME [facility] Ezetimibe (Ezetimibe 10 Mg Tablet) 10 mg PO DAILY [facility] Last Admin: 09/10/21 09:50 Dose: 10 mg Documented by: Furosemide (Furosemide 40 Mg/4 Ml Vial) 40 mg IVPUSH DAILY [facility]; Protocol Last Admin: 09/10/21 09:50 Dose: 40 mg Documented by: Heparin Sodium (Porcine) (Heparin Sodium,Porcine 5,000 Unit/Ml Vial) 3,850 unit IVPUSH PROTOCOL BOLUS PRN; Protocol PRN Reason: 40 unit/kg - Heparin Protocol Heparin Sodium (Porcine) (Heparin Sodium,Porcine 5,000 Unit/Ml Vial) 7,700 unit IVPUSH PROTOCOL BOLUS PRN; Protocol PRN Reason: 80 unit/kg - Heparin Protocol Heparin Sodium/Sodium Chloride () 25,000 unit in 250 mls @ 0 mls/hr IVCONT .Q0M [facility]; Protocol Last Titration: 09/10/21 12:07 Dose: 10.38 units/kg/hr, 10 mls/hr Documented by: Lisinopril (Lisinopril 20 Mg Tablet) 20 mg PO DAILY [facility]; Protocol Last Admin: 09/10/21 09:50 Dose: 20 mg Documented by: Melatonin (Melatonin 3 Mg Tablet) 6 mg PO BEDTIME PRN PRN Reason: Insomnia Metoprolol Succinate (Metoprolol Succinate Er 50 Mg Tab.Er.24h) 50 mg PO DAILY [facility]; Protocol Last Admin: 09/10/21 09:50 Dose: 50 mg Documented by: Nitroglycerin (Nitroglycerin 0.4 Mg Tab.Subl) 0.4 mg SUBLINGUAL Q5MX3 PRN PRN Reason: Chest Pain Omeprazole (Omeprazole 20 Mg Capsule.) 20 mg PO BID@0630,1630 [facility] Sodium Chloride (0.9 % Sodium Chloride Flush 3 Ml Syringe) 3 ml IVFLUSH QSHIFT [facility] Last Admin: 09/10/21 07:33 Dose: Not Given Documented by: Home Medications Medication Instructions Recorded Confirmed Last Taken Type aspirin 81 mg tablet,delayed 81 mg PO DAILY 09/10/21 09/10/21 Unknown History release ezetimibe 10 mg tablet 10 mg PO DAILY 09/10/21 09/10/21 09/09/21 08:00 History lisinopril 20 mg tablet 20 mg PO DAILY 09/10/21 09/10/21 09/02/21 History metoprolol succinate 50 mg 50 mg PO DAILY 09/10/21 09/10/21 09/09/21 08:00 History tablet,extended release 24 hr omeprazole 20 mg capsule,delayed 20 mg PO BID 09/10/21 09/10/21 09/09/21 08:00 History release rosuvastatin 40 mg tablet 40 mg PO DAILY 09/10/21 09/10/21 09/09/21 08:00 History zolpidem 5 mg tablet 5 mg PO BEDTIME PRN 09/10/21 09/10/21 09/07/21 History Physical Exam Vital Signs: Vital Signs: Last Vital Signs Temp 97.6 F 09/09/21 23:26 Pulse 63 09/10/21 08:02 Resp 12 09/10/21 08:02 BP 130/60 09/10/21 08:02 Pulse Ox 97 09/10/21 08:02 BMI result Body Mass Index 30.4 GENERAL APPEARANCE: in no acute distress, pleasant. NECK: no carotid bruit, no jugular venous distention. SKIN: no suspicious lesions, warm and dry. HEART: no murmurs, regular rate and rhythm. LUNGS: clear to auscultation bilaterally. ABDOMEN: soft, nontender. EXTREMITIES: no edema. PERIPHERAL PULSES: equal. NEUROLOGIC: No gross deficits, AAO X 3 Objective Labs and Meds Result diagrams: 09/09/21 23:07 09/09/21 23:07 Lab results: Laboratory Results - last 24 hr 09/09/21 09/09/21 09/09/21 23:07 23:07 23:07 WBC 9.4 RBC 2.89 L Hgb 9.2 L Hct 28.8 L MCV 99.7 H MCH 31.8 MCHC 31.9 RDW 13.2 Plt Count 182 MPV 10.6 Immature Gran % (Auto) 1.5 H Neut % (Auto) 77.5 H Lymph % (Auto) 13.7 L [place] % (Auto) 7.3 Eos % (Auto) 0.0 Baso % (Auto) 0.0 Lymph # (Auto) 1.3 [place] # (Auto) 0.7 Eos # (Auto) 0.0 Baso # (Auto) 0.0 Abs Immat Gran (auto) 0.14 H Absolute Neuts (auto) 7.3 Absolute Nucleated RBC 0.000 Nucleated RBC % (auto) 0.0 PT INR APTT aPTT Heparin Protocol D-Dimer High Sensitivty Sodium 133 L Potassium 4.8 Chloride 101 Carbon Dioxide 25 Anion Gap 12 BUN 15 Creatinine 1.44 H Estim Creat Clear Calc TNP Estimated GFR 50 Random Glucose 156 H D Calcium 8.8 Total Bilirubin 0.5 AST 30 D ALT 44 H Alkaline Phosphatase 44 Troponin I High Sens 30.0 B-Natriuretic Peptide Total Protein 6.5 Albumin 3.8 Lipase 49 COVID-19 (CED) COVID-[employer] 09/10/21 09/10/21 09/10/21 01:39 01:39 02:35 WBC RBC Hgb Hct MCV MCH MCHC RDW Plt Count MPV Immature Gran % (Auto) Neut % (Auto) Lymph % (Auto) [place] % (Auto) Eos % (Auto) Baso % (Auto) Lymph # (Auto) [place] # (Auto) Eos # (Auto) Baso # (Auto) Abs Immat Gran (auto) Absolute Neuts (auto) Absolute Nucleated RBC Nucleated RBC % (auto) PT INR APTT aPTT Heparin Protocol D-Dimer High Sensitivty Sodium Potassium Chloride Carbon Dioxide Anion Gap BUN Creatinine Estim Creat Clear Calc Estimated GFR Random Glucose Calcium Total Bilirubin AST ALT Alkaline Phosphatase Troponin I High Sens 69.7 H D B-Natriuretic Peptide 683 H Total Protein Albumin Lipase COVID-19 (CED) Negative COVID-19 Open Me See Note 09/10/21 09/10/21 09/10/21 02:43 10:39 13:06 WBC RBC Hgb Hct MCV MCH MCHC RDW Plt Count MPV Immature Gran % (Auto) Neut % (Auto) Lymph % (Auto) [place] % (Auto) Eos % (Auto) Baso % (Auto) Lymph # (Auto) [place] # (Auto) Eos # (Auto) Baso # (Auto) Abs Immat Gran (auto) Absolute Neuts (auto) Absolute Nucleated RBC Nucleated RBC % (auto) PT 10.9 INR 1.0 APTT 23.8 L aPTT Heparin Protocol 77.0 D-Dimer High Sensitivty 232 Sodium Potassium Chloride Carbon Dioxide Anion Gap BUN Creatinine Estim Creat Clear Calc Estimated GFR Random Glucose Calcium Total Bilirubin AST ALT Alkaline Phosphatase Troponin I High Sens 90.5 H B-Natriuretic Peptide Total Protein Albumin Lipase COVID-19 (CED) COVID-19 Clin Com Imaging Radiologist's impression: Impressions Chest X-Ray 09/10/21 00:12 IMPRESSION: Small left pleural effusion versus pleural thickening/scarring. Curvilinear left basilar opacity may be due to scarring or atelectasis, new since 05/10/2013. Assessment and Plan (1) ACS (acute coronary syndrome): Status: Acute Plan [age] year gentleman with previous bypass surgery and ischemic cardiomyopathy EF of 30 35% presenting for chest pain and ruled in for NSTEMI. He has been on heparin drip since then. Clinically not volume overloaded and not in heart failure right now. Can be on oral diuretics at this stage. I discussed with him that previously the plan was to do a Lexiscan on him but with him presenting with chest pressure and mildly abnormal troponin we can pursue a cardiac catheterization which can be done at [facility]. He is saying that he does not want to be transferred to [facility] currently. Recommend giving heparin drip for 48 hours. Continue the aspirin. Blood pressure control. Has he improves he can be discharged home and can follow with Dr. Gallardo and we can discuss further plan of care at that stage. Thank you for allowing me to participate in the care of your patient. Please feel free to contact me if you have any questions. Procedures Date of Service Date of Service: 09/10/21
--- NOTE | 2021-09-10 14:32 | PC.NURSE ---
Lunch tray provied to pt at this time
[2021-09-10 17:41] LABS: B Type Natriuretic Peptide 516 pg/mL (<100)
[2021-09-10 17:43] LABS: PTT Heparin Drip 56.9 SEC (53-77.9)
[2021-09-10 20:09] VITALS: BP 98/49; PULSE 61; RESP 12; O2SAT 98
[2021-09-10] MEDS: Omeprazole 20 MG CAPSULE.DR PO (20:25)
[2021-09-10] MEDS: Atorvastatin Calcium 80 MG TABLET PO (20:25)
--- NOTE | 2021-09-10 22:19 | MHC.CM.PN ---
CM attempted to meet with patient. Pt sleeping. CM will follow for d/c needs.
[2021-09-10] MEDS: Zolpidem Tartrate 5 MG TABLET PO (23:37)
[2021-09-11] VITALS (11 sets, daily range): BP systolic 89–109; BP diastolic 41–56; PULSE 55–78; RESP 14–19; TEMP 36.8–37.2; O2SAT 95–98; BMI 30.9
--- NOTE | 2021-09-11 | CA_ITS ---
Acquisition Time: 2021-09-12 08:27:58 Total Exercise Time: 00:02:00 Test Indications: CP Medications: SEE CHART Protocol: LEXISCAN Max HR: 125 BPM 79% of Pred: 158 BPM Max BP: 102/060 mmHG Max Work Load: 1.0 METS Pharmacological stress test with lexiscan injection, while sitting and kicking his legs, without anginal symptoms, with isolated PVC and ventricular cuplets, with normotensive response to injection, with nondiagnostic EKG for ischemia. In recovery he reported feeling sob and lightheaded and was treated with Aminophylline 75mg IVP to reverse lexiscan with resolution of symptoms. Nuclear images pending. Test reviewed with Dr Gallardo. Referred By: Sukhwinder Campos Overread By: CYNTHIA MIRAMONTES
--- NOTE | 2021-09-11 02:15 | PC.NURSE ---
Pt found to be hypotensive while sleeping in bed. Provider made aware. Pt placed in Trendelenburg position to enhance core perfusion. BP improved to 100/50 in this position. Provider ordered Midodrine to help support BP.
[2021-09-11] MEDS: Midodrine HCl 5 MG TABLET PO (02:17)
[2021-09-11] MEDS: Heparin Sodium,Porcine/1/2NS 25,000 UNIT/250 ML IV.SOLN 10 UNIT IVCONT (06:40)
[2021-09-11] MEDS: Omeprazole 20 MG CAPSULE.DR PO ×2 (06:44→16:17)
[2021-09-11 08:10] LABS: MANUAL DIFF FLAG NO
[2021-09-11] MEDS: Ezetimibe 10 MG TABLET PO (08:15)
[2021-09-11] MEDS: Aspirin Enteric Coated 81 MG TABLET.DR PO (08:15)
[2021-09-11 08:25] LABS: Basophils Percent Auto 0.1 % (0-2); Eosinophils Absolute Auto 0.1 X10*3/uL (0.0-0.4); Eosinophils Percent Auto 0.6 % (0-4); Hematocrit 31.1 % (42.0-52.0); Hemoglobin 9.9 g/dl (14.0-18.0); Imm Gran Abs Auto 0.08 X10*3/uL (0.00-0.03); Imm Gran Pct Auto 0.8 % (0.0-0.4); Lymphocytes Absolute Auto 3.1 X10*3/uL (1.2-4.9); Lymphocytes Percent Auto 29.3 % (20-40); Mean Corpuscular HGB Conc 31.8 g/dl (31.0-36.0); Mean Corpuscular Hemoglobin 31.6 pg (27.0-33.0); Mean Corpuscular Volume 99.4 fL (80.0-98.0); Mean Platelet Volume 10.6 fL (9.4-12.4); Monocytes Absolute Auto 0.8 X10*3/uL (0.1-1.2); Monocytes Percent Auto 7.3 % (2-11); Neutrophils Absolute Auto 6.5 x10*3/uL (2.0-8.3); Neutrophils Percent Auto 61.9 % (45-73); Platelet Count 186 X10*3/uL (160-400); Red Blood Count 3.13 X10*6/uL (4.60-5.80); Red Cell Distribution Width 13.5 % (11.0-16.0); White Blood Count 10.4 X10*3/uL (4.8-10.8)
[2021-09-11] MEDS: 0.9 % Sodium Chloride Flush 3 ML SYRINGE IVFLUSH ×3 (08:25→20:45)
[2021-09-11 08:27] LABS: Anion Gap 13 (12-20); Blood Urea Nitrogen 20 mg/dL (9-16); Calcium 9.4 mg/dL (8.4-10.2); Carbon Dioxide 30 mmol/L (22-29); Chloride 94 mmol/L (96-108); Creatinine Clr Calc Pharmacy 40.7; Estimated Glomerular Filt Rate 31; Glucose Random 129 mg/dL (60-115); Potassium 4.6 mmol/L (3.3-5.1); Sodium 132 mmol/L (135-145)
[2021-09-11 08:29] LABS: PTT Heparin Drip 77.6 SEC (53-77.9)
--- NOTE | 2021-09-11 12:00 | CA_ITS ---
Transthoracic Echocardiogram Patient (Last, First, Middle): Johnny Pittman L Gender: Male Date of : 1960 Age: 61 Procedure Date: 09/11/2021 Procedure Type: Transthoracic Echocardiogram [place] [facility] [place] Height: 177.8 cm Weight: 96.16 kg BSA: 2.14 m2 Heart Rate: bpm BP: 125 / 62 mmHg Public Accountant: Referring MD: Eamon Rendon MD Symptoms: chf Study Quality: Fair ECG Rhythm: Sinus Conclusions: - Normal left ventricular cavity size. There is mildly increased left ventricular wall thickness. The left ventricular systolic function is mildly decreased. The visually estimated ejection fraction is between 40-45%. - E/E prime ratio is between 8 and 15 consistent with indeterminate filling pressures. - The basal inferior and mid inferior segments are akinetic. - Normal right ventricular cavity size and systolic function. Findings Left Ventricle Normal left ventricular cavity size. There is mildly increased left ventricular wall thickness. The left ventricular systolic function is mildly decreased. The visually estimated ejection fraction is between 40-45%. There is evidence of regional wall motion abnormalities. There is paradoxical septal motion consistent with post-operative status. Abnormal diastolic function is noted. Spectral Doppler is indicative of an impaired relaxation filling pattern. E/E prime ratio is between 8 and 15 consistent with indeterminate filling pressures. Wall Motion Rest Echo Findings The basal inferior and mid inferior segments are akinetic. Right Ventricle Normal right ventricular cavity size and systolic function. Atria The left atrium is normal in size. Aortic Valve The aortic valve structure and function is likely normal. There is no aortic valve stenosis. There is no aortic valve regurgitation. Mitral Valve The mitral valve appears normal. There is no mitral valve regurgitation. There is no mitral valve stenosis. Pulmonic Valve The pulmonic valve is likely normal. Tricuspid Valve Normal tricuspid valve structure. There is trace tricuspid valve regurgitation. Tricuspid regurgitation envelope is inadequate for calculation of right ventricular systolic pressure. Normal right atrial pressure. Great Vessels All visible segments of the aorta are normal in size. The visualized portions of the pulmonary artery and branches are normal. Venous The inferior vena cava is normal in size and collapses greater than 50% with inspiration. Pericardium/Pleural There is no evidence of pericardial effusion. Prior Study Comparison Changes noted compared to prior study dated: 03/28/2021. EF 40-45%. Measurements 2D Linear Measurements IVSd: 1.24 0.6-0.9/0.6-1.0 cm LVIDd: 5.25 3.9-5.3/4.2-5.9 cm LVIDd Index: 2.45 2.4-3.2/2.2-3.1 cm/m2 LVIDs: 4.03 2.0-3.6 cm LVPWd: 1.20 0.7-1.1 cm Ao Root: 2.80 2.1-3.5 cm LA Diam: 3.80 2.7-3.8/3.0-4.0 cm LAIDs Index: 1.78 1.5-2.3 cm/m2 LV Mass: 322.46 67-162/88-224 g LV Mass Index: 150.68 43-95/49-115 g/m2 LVOT Diam: 2.30 3.0+(-)1.3 cm 2D Systolic Function EF 4C: 48.80 >55% EF 2C: 40.40 >55% EF BiP: 43.10 >55% Mitral Valve MV Pk E: 0.53 MV PK A: 0.72 MV Decel Time: 199.00 E/A: 0.70 E'Lateral: 7.94 E'Medial: 5.33 E/E' Med: 9.90 E/E' Lat: 6.60 PHT: 58.00 MVA PHT: 3.79 Decel [place]: 2.64 Aortic Valve AoV Pk Chinmay: 1.34 AoV Mn [place]: 0.83 AoV VTI: 0.22 AoV Pk Grad: 7.00 Aov Mn Grad: 3.00 DANETTE Cont.VTI: 3.36 LVOT LVOT Pk [place]: 0.88 LVOT Mn [place]: 0.56 LVOT VTI: 0.18 LVOT Pk Grad: 3.00 LVOT Mn Grad: 2.00 LVOT Diam: 2.30 LVOT Area: 4.15 Diastolic Function MV Pk E: 0.53 MV Pk A: 0.72 E/A: 0.70 E'Medial: 5.33 E/E' Med: 9.90 E' Laterial: 7.94 E/E' Lat: 6.60 Tricuspid Valve TR Pk Chin[place]: 2.06 TR Pk Grad: 17.00 RA Press: 3.00 RVSP: 20.00 Great Vessels Aorta Ao Root-2D: 2.80 2.0-3.7 cm Ao Asc: 2.60 2.1-3.4 cm Pulmonary Valve PV Pk Chin[place]: 1.26 Peak PV Grad: 6.00 Updated in Other Vendor System with Status of Final Sukhwinder Campos MD electronically signed on 09/12/2021 9:45:11 AM with status of Final
[2021-09-11] MEDS: LORazepam 2 MG/ML VIAL 0.5 MG IVPUSH (12:01)
[2021-09-11 12:18] LABS: Troponin-I High Sensitivity 51.7 ng/L (<3.5-35.0)
--- NOTE | 2021-09-11 12:24 | MHC.CM.PN ---
Met with pt to discuss d/c planning: pt resides with his brother, is independent with care needs, drives, has no services or DME. Pt declines HCP, IMM explained and in chart. Pt states he had the [employer] vax. Pt has a working cellphone and will call his brother for transportation home. CM to follow.
--- NOTE | 2021-09-11 13:43 | P.PNCA_ITS ---
Subjective Subjective Date of Service: 09/11/21 Interval history: Very upset and tearful about undergoing cardiac cath. He had bad experience with femoral access before. No futher CP. Physical Exam Vital Signs: Last Vital Signs Temp 97.6 F 09/09/21 23:26 Pulse 67 09/11/21 11:55 Resp 14 09/11/21 11:55 BP 107/56 L 09/11/21 11:55 Pulse Ox 97 09/11/21 11:55 BMI result Body Mass Index 30.4 GENERAL APPEARANCE: Tearful and emotional. NECK: no carotid bruit, no jugular venous distention. SKIN: no suspicious lesions, warm and dry. HEART: no murmurs, regular rate and rhythm. LUNGS: clear to auscultation bilaterally. ABDOMEN: soft, nontender. EXTREMITIES: no edema. PERIPHERAL PULSES: equal. NEUROLOGIC: No gross deficits, AAO X 3 Objective Labs and Meds Result diagrams: 09/11/21 08:07 09/11/21 08:07 Lab results: Laboratory Results - last 24 hr 09/10/21 09/10/21 09/11/21 16:50 16:50 08:07 WBC RBC Hgb Hct MCV MCH MCHC RDW Plt Count MPV Immature Gran % (Auto) Neut % (Auto) Lymph % (Auto) [place] % (Auto) Eos % (Auto) Baso % (Auto) Lymph # (Auto) [place] # (Auto) Eos # (Auto) Baso # (Auto) Abs Immat Gran (auto) Absolute Neuts (auto) Absolute Nucleated RBC Nucleated RBC % (auto) aPTT Heparin Protocol 56.9 D 77.6 D Sodium Potassium Chloride Carbon Dioxide Anion Gap BUN Creatinine Estim Creat Clear Calc Estimated GFR Random Glucose Calcium Troponin I High Sens B-Natriuretic Peptide 516 H 09/11/21 09/11/21 09/11/21 08:07 08:07 08:07 WBC 10.4 RBC 3.13 L Hgb 9.9 L Hct 31.1 L MCV 99.4 H MCH 31.6 MCHC 31.8 RDW 13.5 Plt Count 186 MPV 10.6 Immature Gran % (Auto) 0.8 H Neut % (Auto) 61.9 Lymph % (Auto) 29.3 [place] % (Auto) 7.3 Eos % (Auto) 0.6 Baso % (Auto) 0.1 Lymph # (Auto) 3.1 [place] # (Auto) 0.8 Eos # (Auto) 0.1 Baso # (Auto) 0.0 Abs Immat Gran (auto) 0.08 H Absolute Neuts (auto) 6.5 Absolute Nucleated RBC 0.000 Nucleated RBC % (auto) 0.0 aPTT Heparin Protocol Sodium 132 L Potassium 4.6 Chloride 94 L Carbon Dioxide 30 H Anion Gap 13 BUN 20 H Creatinine 2.19 H Estim Creat Clear Calc 40.7 Estimated GFR 31 Random Glucose 129 H Calcium 9.4 D Troponin I High Sens 51.7 H B-Natriuretic Peptide Progress Note: A&P Assessment and plan (1) ACS (acute coronary syndrome): Status: Acute Plan [age] year gentleman with acute coronary syndrome with background of staton ry artery disease and previous bypass surgery. He has been on heparin drip. We discussed about cardiac catheterization but he was not agreeable. Our plan was to medically manage him. Again today he was tearful that he had some bad experience with femoral access. I explained to him that left radial access is a possibility in him but he has to accept that if radial access fails then we may have to take femoral access. We also discussed the option of finishing heparin gtt x 48 hours and then doing a Lexiscan. He wants to take this approach. We will do stress test. Keep NPO after midnight. Time Spent With Patient Time: Total time spent is greater than 50% in coordination of care (as documented) at patient's floor/unit and/or counseling patient: Progress Note: Quality Stroke Does the patient have a stroke diagnosis?: No Procedures Date of Service Date of Service: 09/11/21
--- NOTE | 2021-09-11 15:32 | P.PNIM_ITS ---
Subjective Subjective Date of Service: 09/11/21 Interval History: No acute issues overnight. States no further chest pain since admission. Anxious about possible cath Review of Systems Denies chest pain Denies shortness of breath Denies nausea vomiting diarrhea Denies fever chills Physical Exam Vital Signs: Vital Signs: Last Vital Signs Temp 98.3 F 09/11/21 15:00 Pulse 61 09/11/21 15:00 Resp 14 09/11/21 15:00 BP 101/48 L 09/11/21 15:00 Pulse Ox 97 09/11/21 15:00 BMI result Body Mass Index 30.4 Const: Other: Awake alert oriented x3 no acute distress Resp: Other: Clear to auscultation bilaterally no rales rhonchi or wheezes Cardio: Other: No S4; positive S1-S2; no S3 murmurs rubs or gallops GI: Other: Soft nontender nondistended normoactive bowel sounds Extrem: Other: No edema bilaterally Objective Data Active Medications Acetaminophen (Acetaminophen 325 Mg Tablet) 650 mg PO Q6H PRN PRN Reason: Pain, Mild (Pain Scale 1-3) Aspirin (Aspirin Enteric Coated 81 Mg Tablet.) 81 mg PO DAILY [facility] Last Admin: 09/11/21 08:15 Dose: 81 mg Documented by: ELAINE Atorvastatin Calcium (Atorvastatin Calcium 80 Mg Tablet) 80 mg PO BEDTIME [facility] Last Admin: 09/10/21 20:25 Dose: 80 mg Documented by: MARTINEZ Ezetimibe (Ezetimibe 10 Mg Tablet) 10 mg PO DAILY [facility] Last Admin: 09/11/21 08:15 Dose: 10 mg Documented by: ELAINE Heparin Sodium (Porcine) (Heparin Sodium,Porcine 5,000 Unit/Ml Vial) 3,850 unit IVPUSH PROTOCOL BOLUS PRN; Protocol PRN Reason: 40 unit/kg - Heparin Protocol Heparin Sodium (Porcine) (Heparin Sodium,Porcine 5,000 Unit/Ml Vial) 7,700 unit IVPUSH PROTOCOL BOLUS PRN; Protocol PRN Reason: 80 unit/kg - Heparin Protocol Heparin Sodium/Sodium Chloride () 25,000 unit in 250 mls @ 0 mls/hr IVCONT .Q0M [facility]; Protocol Last Admin: 09/11/21 06:40 Dose: 10.38 units/kg/hr, 10 mls/hr Documented by: MARTINEZ Cosigned by: MIRTA Lisinopril (Lisinopril 20 Mg Tablet) 20 mg PO DAILY [facility]; Protocol Last Admin: 09/11/21 08:25 Dose: Not Given Documented by: ELAINE Non-Admin Reason: See Note Melatonin (Melatonin 3 Mg Tablet) 6 mg PO BEDTIME PRN PRN Reason: Insomnia Metoprolol Succinate (Metoprolol Succinate Er 50 Mg Tab.Er.24h) 50 mg PO DAILY [facility]; Protocol Last Admin: 09/11/21 08:25 Dose: Not Given Documented by: ELAINE Non-Admin Reason: See Note Nitroglycerin (Nitroglycerin 0.4 Mg Tab.Subl) 0.4 mg SUBLINGUAL Q5MX3 PRN PRN Reason: Chest Pain Omeprazole (Omeprazole 20 Mg Capsule.Dr) 20 mg PO BID@0630,1630 [facility] Last Admin: 09/11/21 06:44 Dose: 20 mg Documented by: MARTINEZ Sodium Chloride (0.9 % Sodium Chloride Flush 3 Ml Syringe) 3 ml IVFLUSH QSHIFT [facility] Last Admin: 09/11/21 08:25 Dose: 3 ml Documented by: ELAINE Labs CBC & Chem 7: 09/11/21 08:07 09/11/21 08:07 Labs: Laboratory Results - last 24 hr 09/10/21 09/10/21 09/11/21 16:50 16:50 08:07 MCV MCH MCHC RDW Plt Count MPV Immature Gran % (Auto) Neut % (Auto) Lymph % (Auto) [place] % (Auto) Eos % (Auto) Baso % (Auto) Lymph # (Auto) [place] # (Auto) Eos # (Auto) Baso # (Auto) Abs Immat Gran (auto) Absolute Neuts (auto) Absolute Nucleated RBC Nucleated RBC % (auto) aPTT Heparin Protocol 56.9 D 77.6 D Anion Gap Estim Creat Clear Calc Estimated GFR Random Glucose Calcium Troponin I High Sens B-Natriuretic Peptide 516 H 09/11/21 09/11/21 09/11/21 08:07 08:07 08:07 MCV 99.4 H MCH 31.6 MCHC 31.8 RDW 13.5 Plt Count 186 MPV 10.6 Immature Gran % (Auto) 0.8 H Neut % (Auto) 61.9 Lymph % (Auto) 29.3 [place] % (Auto) 7.3 Eos % (Auto) 0.6 Baso % (Auto) 0.1 Lymph # (Auto) 3.1 [place] # (Auto) 0.8 Eos # (Auto) 0.1 Baso # (Auto) 0.0 Abs Immat Gran (auto) 0.08 H Absolute Neuts (auto) 6.5 Absolute Nucleated RBC 0.000 Nucleated RBC % (auto) 0.0 aPTT Heparin Protocol Anion Gap 13 Estim Creat Clear Calc 40.7 Estimated GFR 31 Random Glucose 129 H Calcium 9.4 D Troponin I High Sens 51.7 H B-Natriuretic Peptide Assessment and Plan (1) ACS (acute coronary syndrome): Status: Acute (2) Acute kidney injury: Status: Acute Plan 61-year-old male with a past medical history of hypertension, hyperlipidemia, ischemic cardiomyopathy, CKD presented to the hospital with a chief complaint of chest pain/shortness of breath/leg swelling; troponin peak 90.5 1. ACS -troponin peak 90.5. Maintained on heparin drip -no further diuresis as examines euvolemic -NPO after midnight. .. Lexiscan in a.m. 2.Chronic kidney disease -creatinine elevated slightly secondary to diuresis.... DC'd -follow renals/divalents DVT prophylaxis: Patient on heparin drip Code status: Full code Requires ongoing hospitalization secondary to need for heparin drip and further imaging Quality Stroke Does the patient have a stroke diagnosis?: No VTE Prior VTE?: No VTE Risk Level:: Medical - moderate - high VTE Device Contraindication: Treatment Not Indicated VTE Drug Contraindication: N/A - Med Ordered
[2021-09-11] MEDS: Atorvastatin Calcium 80 MG TABLET PO (20:34)
[2021-09-11] MEDS: Melatonin 3 MG TABLET 6 MG PO (20:34)
[2021-09-11] MEDS: Lactated Ringers 500 ML IV ×2 (20:38→22:17)
[2021-09-11] MEDS: Zolpidem Tartrate 5 MG TABLET PO (22:18)
[2021-09-12 03:27] VITALS: BP 100/30; PULSE 77; RESP 18; TEMP 36.3; O2SAT 96
[2021-09-12 07:14] LABS: Hematocrit 27.1 % (42.0-52.0); Hemoglobin 8.7 g/dl (14.0-18.0); Mean Corpuscular HGB Conc 32.1 g/dl (31.0-36.0); Mean Corpuscular Hemoglobin 31.6 pg (27.0-33.0); Mean Corpuscular Volume 98.5 fL (80.0-98.0); Mean Platelet Volume 10.5 fL (9.4-12.4); Platelet Count 148 X10*3/uL (160-400); Red Blood Count 2.75 X10*6/uL (4.60-5.80); Red Cell Distribution Width 13.4 % (11.0-16.0); White Blood Count 6.9 X10*3/uL (4.8-10.8)
[2021-09-12 07:22] LABS: PTT Heparin Drip 85.9 SEC (53-77.9)
[2021-09-12 08:00] VITALS: BP 104/57; PULSE 106; RESP 18; TEMP 36.7; O2SAT 98
[2021-09-12] MEDS: Aspirin Enteric Coated 81 MG TABLET.DR PO (08:13)
[2021-09-12] MEDS: Ezetimibe 10 MG TABLET PO (08:13)
[2021-09-12] MEDS: 0.9 % Sodium Chloride Flush 3 ML SYRINGE IVFLUSH (08:13)
[2021-09-12] MEDS: Heparin Sodium,Porcine/1/2NS 25,000 UNIT/250 ML IV.SOLN 8 UNIT IVCONT (08:14)
[2021-09-12 08:19] LABS: Alanine Aminotransferase 22 U/L (0-40); Albumin Level 3.2 g/dL (3.5-5.0); Alkaline Phosphatase 39 U/L (39-117); Anion Gap 14 (12-20); Aspartate Amino Transferase 14 U/L (5-37); Bilirubin Total 0.6 mg/dL (0.0-1.0); Blood Urea Nitrogen 20 mg/dL (9-16); Calcium 9.1 mg/dL (8.4-10.2); Carbon Dioxide 25 mmol/L (22-29); Chloride 102 mmol/L (96-108); Creatinine Clr Calc Pharmacy 46.7; Estimated Glomerular Filt Rate 36; Glucose Fasting 113 mg/dL (60-99); Sodium 137 mmol/L (135-145); Total Protein 5.2 g/dL (6.5-8.0)
[2021-09-12 11:35] VITALS: BP 85/46; PULSE 84; RESP 18; TEMP 36.9; O2SAT 98
--- NOTE | 2021-09-12 12:33 | P.PNCA_ITS ---
Subjective Subjective Date of Service: 09/12/21 <JOE Marino - Last Filed: 09/12/21 12:41> 09/12/21 <Ian Gallardo MD - Last Filed: 09/12/21 14:46> Principal diagnosis: chest pain, NSTEMI <JOE Marino - Last Filed: 09/12/21 12:41> Interval history: Cardiology follow-up for the above. Seen at 0930. Today he reports feeling well with no concerning symptoms. He states that his breathing is comf ortable, no chest pains, no palpitations. His leg edema has resolved. He is hoping to go home today. He continues on heparin drip. <JOE Marino Last Filed: 09/12/21 12:41> Review of Systems Review of Systems As above <JOE Marino - Last Filed: 09/12/21 12:41> Yes all other systems are reviewed and are negative <JOE Marino - Last Filed: 09/12/21 12:41> Physical Exam Vital Signs: Last Vital Signs Temp 98.4 F 09/12/21 11:35 Pulse 84 09/12/21 11:35 Resp 18 09/12/21 11:35 BP 85/46 L 09/12/21 11:35 Pulse Ox 98 09/12/21 11:35 BMI result Body Mass Index 30.9 <JOE Marino - Last Filed: 09/12/21 12:41> Const General: cooperative, healthy appearing, no acute distress, alert and awake <JOE Marino - Last Filed: 09/12/21 12:41> Orientation/consciousness: patient oriented x3 <JOE Marino - Last Filed: 09/12/21 12:41> Neck Neck: Yes normal visual inspection and Yes no JVD <JOE Marino Last Filed: 09/12/21 12:41> Resp Effort & Inspection: normal respiratory effort and able to speak in complete sentences <JOE Marino - Last Filed: 09/12/21 12:41> Auscultation: clear to auscultation bilaterally, no crackles, no rales, no rhonchi and no wheezes <Sia ArcherSHASHAC - Last Filed: 09/12/21 12:41> Cardio Rate: regular rate <Sia ArcherIRAISJake - Last Filed: 09/12/21 12:41> Rhythm: regular rhythm <Sia ArcherIRAISJake - Last Filed: 09/12/21 12:41> Heart sounds: S1 normal heart sound present and S2 normal heart sound present <Sia ArcherIRAISKevinC - Last Filed: 09/12/21 12:41> Peripheral pulses: Peripheral pulses 2+ throughout <Sia ArcherIRAISKevinC - Last Filed: 09/12/21 12:41> GI Inspection: Yes normal to inspection <Sia ArcherIRAISKevinC - Last Filed: 09/12/21 12:41> Neuro General: patient oriented x3 <Sia ArcherIRAISJake - Last Filed: 09/12/21 12:41> Extrem General: Yes normal to inspection and No edema <Sia ArcherIRAISKevinC - Last Filed: 09/12/21 12:41> Objective Labs and Meds Result diagrams: : 09/12/21 06:35 09/12/21 06:35 <Sia ArcherSHASHALesli - Last Filed: 09/12/21 12:41> Lab results: Laboratory Results - last 24 hr 09/12/21 09/12/21 09/12/21 06:35 06:35 06:35 WBC 6.9 RBC 2.75 L Hgb 8.7 L Hct 27.1 L MCV 98.5 H MCH 31.6 MCHC 32.1 RDW 13.4 Plt Count 148 L MPV 10.5 Absolute Nucleated RBC 0.000 Nucleated RBC % (auto) 0.0 aPTT Heparin Protocol 85.9 H Sodium 137 Potassium 4.0 Chloride 102 Carbon Dioxide 25 Anion Gap 14 BUN 20 H Creatinine 1.92 H Estim Creat Clear Calc 46.7 Estimated GFR 36 Fasting Glucose 113 H Calcium 9.1 Total Bilirubin 0.6 AST 14 D ALT 22 Alkaline Phosphatase 39 Total Protein 5.2 L Albumin 3.2 L <Sia ArcherSHASHAC - Last Filed: 09/12/21 12:41> Progress Note: A&P Assessment and plan (1) Chest pain: Status: Acute <JOE Marino - Last Filed: 09/12/21 12:41> Assessment and Plan: Reports of chest discomfort on admission. History of CAD with prior Coronary artery bypass grafting, ischemic cardiomyopathy EF 30-35%. Troponin elevated initially at 30 and toshia to 90. EKG without ischemic changes. It was recommended that he have cardiac catheterization however he declined. He has been treated medically with heparin drip since admit and continued on aspirin, metoprolol, atorvastatin. He has had no recurrent chest discomfort. A nuclear stress test is being completed today to evaluate for ischemia. Further treatment plan to be determined once test results are available. Continue IV heparin at this time. We will follow <JOE Marino - Last Filed: 09/12/21 12:41> Reports of chest discomfort on admission. History of CAD with prior Coronary artery bypass grafting, ischemic cardiomyopathy EF 30-35%. Troponin elevated initially at 30 and toshia to 90. EKG without ischemic changes. It was recommended that he have cardiac catheterization however he declined. He has been treated medically with heparin drip since admit and continued on aspirin, metoprolol, atorvastatin. He has had no recurrent chest discomfort. A nuclear stress test is being completed today to evaluate for ischemia. Further treatment plan to be determined once test results are available. Continue IV heparin at this time. We will follow Patient seen and examined. Case discussed with Sia and the hospitalist team. Patient has no recurrent chest pain. Myocardial perfusion imaging shows mostly infarcted myocardium with osmar-infarct ischemia however this possibility of ischemia in the inferolateral lateral wall. Noted low blood pressure although he is sitting upright having no lightheadedness. Question erroneous blood pressure. Repeat blood pressure measurement. Reduce lisinopril to 10 mg daily. Continue metoprolol therapy. Please add isosorbide 30 mg to his regimen on discharge. Discussed with him to increase activity level. If he continues to have recurrent chest pain will need cardiac catheterization. This was discussed with him he is understands and agrees. Can be discharged home today. Continue high-intensity statin therapy with aspirin. Will sign of the case. <Ian Gallardo MD - Last Filed: 09/12/21 14:46> (2) ACS (acute coronary syndrome): Status: Acute <JOE Marino - Last Filed: 09/12/21 12:41> (3) Ischemic cardiomyopathy: Status: Acute <JOE Marino - Last Filed: 09/12/21 12:41> Assessment and Plan: Continue metoprolol and lisinopril. Had mild leg swelling on admission. <JOE Marino - Last Filed: 09/12/21 12:41> Plan History of ischemic cardiomyopathy with EF 30-35%. He had mild leg edema on admission. He had elevated BNP at 683. I do not see that he got IV Lasix however he does report resolved leg edema at this time. Denies having shortness of breath. His blood pressure has been running low this admission and his lisinopril and metoprolol have been held. He has received some IV fluids. At time of my visit he denied having any dizziness or presyncope. Blood pressure was on the low side, asymptomatic. He did not have clinical signs of heart failure on exam. <JOE Marino - Last Filed: 09/12/21 12:41> Time Spent With Patient Time: Total time spent is greater than 50% in coordination of care (as documented) at patient's floor/unit and/or counseling patient: 24 <JOE Marino - Last Filed: 09/12/21 12:41> Progress Note: Quality Stroke Does the patient have a stroke diagnosis?: No <JOE Marino Last Filed: 09/12/21 12:41> Procedures Date of Service Date of Service: 09/12/21 <JOE Marino - Last Filed: 09/12/21 12:41>
[2021-09-12 14:23] LABS: PTT Heparin Drip 55.8 SEC (53-77.9)
--- NOTE | 2021-09-12 14:44 | PM.DS ---
DS: Providers Provider Date of Service: 09/12/21 Date of admission: 09/10/21 06:15 Date of discharge: 09/12/21 Primary care physician: Boy Jorge MD Consults: 09/10/21 06:15 Consult to Cardiology Routine Consulting Provider: Sukhwinder Campos Reason for consultation: CHF; chest pain DS: Diagnosis Discharge Diagnosis (1) Chest pain: Status: Acute (2) ACS (acute coronary syndrome): Status: Acute (3) Ischemic cardiomyopathy: Status: Acute DS: Summary Hospital Course Hospital Course: 61-year-old male with a past medical history of hypertension, hyperlipidemia, ischemic cardiomyopathy presented to the hospital with a chief complaint of chest pain, shortness of breath, leg swelling.? Patient reports that he was recently admitted to the hospital for renal insufficiency; since he left home he started to develop swelling in his legs; also complains of shortness of breath and dyspnea on exertion with occasional orthopnea.? Denies any shortness of breath at rest.? Patient ruled in for an STEMI and started on heparin drip. Seen by Cardiology who initially recommended cardiac catheterization however the patient felt strongly against this. 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 Based on his exam and known history with the patient patient will be discharged with Imdur and his lisinopril will be decreased to 10 mg. He will follow-up with Dr. Gallardo as an outpatient Time Spent with Patient Time attestation: Total time spent providing and/or coordinating discharge services: Discharge coordination time: Greater than 30 minutes Quality: Safe Use of Opioids Does Pt have an Active Cancer Diagnosis on the Problem List?: No Quality: Stroke Does the patient have a stroke diagnosis?: No Physical Exam Vital Signs: Vital Signs: Last Vital Signs Temp 98.4 F 09/12/21 11:35 Pulse 84 09/12/21 11:35 Resp 18 09/12/21 11:35 BP 85/46 L 09/12/21 11:35 Pulse Ox 98 09/12/21 11:35 BMI result Body Mass Index 30.9 Const: Other: Awake alert oriented x3 no acute distress Resp: Other: Clear to auscultation bilaterally no rales rhonchi or wheezes Cardio: Other: No S4; positive S1-S2; no S3 murmurs rubs or gallops GI: Other: Soft nontender nondistended normoactive bowel sounds Extrem: Other: No edema bilaterally DS: Data Data Completed and Pending Labs on day of discharge: Laboratory Results - last 24 hr 09/12/21 09/12/21 09/12/21 06:35 06:35 06:35 WBC 6.9 RBC 2.75 L Hgb 8.7 L Hct 27.1 L MCV 98.5 H MCH 31.6 MCHC 32.1 RDW 13.4 Plt Count 148 L MPV 10.5 Absolute Nucleated RBC 0.000 Nucleated RBC % (auto) 0.0 aPTT Heparin Protocol 85.9 H Sodium 137 Potassium 4.0 Chloride 102 Carbon Dioxide 25 Anion Gap 14 BUN 20 H Creatinine 1.92 H Estim Creat Clear Calc 46.7 Estimated GFR 36 Fasting Glucose 113 H Calcium 9.1 Total Bilirubin 0.6 AST 14 D ALT 22 Alkaline Phosphatase 39 Total Protein 5.2 L Albumin 3.2 L 09/12/21 14:08 WBC RBC Hgb Hct MCV MCH MCHC RDW Plt Count MPV Absolute Nucleated RBC Nucleated RBC % (auto) aPTT Heparin Protocol 55.8 D Sodium Potassium Chloride Carbon Dioxide Anion Gap BUN Creatinine Estim Creat Clear Calc Estimated GFR Fasting Glucose Calcium Total Bilirubin AST ALT Alkaline Phosphatase Total Protein Albumin Discharge Plan Discharge Patient Disposition: Home, Self-Care Discharge Diagnosis: ACS Referrals: Boy Jorge MD [Primary Care Provider] - 1 Week Discharge Medications: New aspirin 81 mg Tablet,Delayed Release (Dr/Ec) 81 mg PO DAILY Qty: 30 0RF lisinopril 10 mg tablet 10 mg PO DAILY Qty: 30 0RF isosorbide mononitrate 30 mg tablet extended release 24 hr 30 mg PO DAILY Qty: 30 0RF Continued metoprolol succinate 50 mg tablet extended release 24 hr 50 mg PO DAILY 0RF omeprazole 20 mg capsule,delayed release(DR/EC) 20 mg PO BID 0RF zolpidem 5 mg Tablet 5 mg PO BEDTIME PRN (Reason: Insomnia) 0RF ezetimibe 10 mg tablet 10 mg PO DAILY 0RF rosuvastatin 40 mg tablet 40 mg PO DAILY 0RF aspirin 81 mg Tablet,Delayed Release (Dr/Ec) 81 mg PO DAILY 0RF Discontinued lisinopril 20 mg tablet 20 mg PO DAILY 0RF Label Comments: Pt was told during admission [address] until further notice. Discharge Orders: Discharge Order (Routine); Ordered 09/12/21 Ordered By: Moiz Wen Diet: advance to usual diet Activity on Discharge: As tolerated Stand Alone Forms: Patient Portal Discharge page Care Plan Goals: Your lisinopril has been decreased to 10 mg daily. Imdur were 30 has been added to your regimen Health Concerns: Follow-up with Cardiology in 1-2 weeks as scheduled Plan of Treatment: Stop smoking Assessment: See discharge summary
--- NOTE | 2021-09-12 14:48 | MHC.CM.PN ---
IMM 09/10/21 Male 61 DX NSTEMI He is discharged home today no services. He has arranged for private transportation to home.
== END 2021-09-12 16:00 | disposition home or self-care (01) | DRG 281 ==
LOC: HO.ED 09-10 04:50 → HO.EDOVER 09-10 06:29 → HO.IMC 09-11 19:35
PROVIDERS: Admitting Provider Hospitalist; Emergency Provider Student in an Organized Health Care Education/Training Program; PCP Internal Medicine; Visit Provider Hospitalist
DX: I21.4 Non-ST elevation (NSTEMI) myocardial infarction (principal); I13.0 Hypertensive heart and chronic kidney disease with heart failure and stage 1 through stage 4 chronic kidney disease, or unspecified chronic kidney disease; I25.10 Atherosclerotic heart disease of native coronary artery without angina pectoris; E78.5 Hyperlipidemia, unspecified; I25.5 Ischemic cardiomyopathy; N18.9 Chronic kidney disease, unspecified; I50.9 Heart failure, unspecified; Z95.1 Presence of aortocoronary bypass graft; Z79.82 Long term (current) use of aspirin; Z79.899 Other long term (current) drug therapy
CPT/HCPCS: 36415; 71045; 78452; 80048; 80053; 83690; 83880; 84484; 85025; 85027; 85379; 85610; 85730; 87635; 93005; 93017; 93306; 96365; 96366; 96375; 96376; 99285; A9500; J0280; J1940; J2060; J2785

== ENCOUNTER → 2021-09-24 09:16 | Outpatient (BNVA) | payer MEDICARE, OTHER, SELFPAY | PROVIDERS: PCP Internal Medicine; Referring Provider Internal Medicine; Visit Provider Internal Medicine Cardiovascular Disease | DX: I50.20 Unspecified systolic (congestive) heart failure (principal); I25.10 Atherosclerotic heart disease of native coronary artery without angina pectoris | CPT/HCPCS: 99212 ==

== ENCOUNTER 2021-10-30 07:17 | Outpatient (REF) | payer MEDICARE, OTHER, SELFPAY ==
[2021-10-30 07:47] LABS: MANUAL DIFF FLAG NO
[2021-10-30 07:56] LABS: Basophils Percent Auto 0.3 % (0-2); Eosinophils Absolute Auto 0.1 X10*3/uL (0.0-0.4); Eosinophils Percent Auto 2.3 % (0-4); Hematocrit 29.3 % (42.0-52.0); Hemoglobin 9.3 g/dl (14.0-18.0); Imm Gran Abs Auto 0.01 X10*3/uL (0.00-0.03); Imm Gran Pct Auto 0.2 % (0.0-0.4); Immature Retic Fraction 10.6 % (2.3-13.4); Lymphocytes Absolute Auto 2.2 X10*3/uL (1.2-4.9); Lymphocytes Percent Auto 36.1 % (20-40); Mean Corpuscular HGB Conc 31.7 g/dl (31.0-36.0); Mean Corpuscular Hemoglobin 31.7 pg (27.0-33.0); Monocytes Absolute Auto 0.5 X10*3/uL (0.1-1.2); Monocytes Percent Auto 7.7 % (2-11); Neutrophils Absolute Auto 3.3 x10*3/uL (2.0-8.3); Neutrophils Percent Auto 53.4 % (45-73); Platelet Count 175 X10*3/uL (160-400); Red Blood Count 2.93 X10*6/uL (4.60-5.80); Red Cell Distribution Width 13.3 % (11.0-16.0); Retic HGB Equivalent 35.9 pg (30.0-35.0); Reticulocyte Percent 2.3 % (0.5-1.8); Reticulocytes Absolute 0.067 X10*6/uL (0.026-0.095); White Blood Count 6.1 X10*3/uL (4.8-10.8)
[2021-10-30 08:21] LABS: Alanine Aminotransferase 22 U/L (0-40); Albumin Level 3.8 g/dL (3.5-5.0); Alkaline Phosphatase 78 U/L (39-117); Anion Gap 11 (12-20); Aspartate Amino Transferase 40 U/L (5-37); Bilirubin Total 0.3 mg/dL (0.0-1.0); Blood Urea Nitrogen 20 mg/dL (9-16); Carbon Dioxide 22 mmol/L (22-29); Chloride 106 mmol/L (96-108); Estimated Glomerular Filt Rate 28; Glucose Random 104 mg/dL (60-115); Iron 85 mcg/dL (45-160); Percent Iron Saturation 40 % (15-50); Sodium 134 mmol/L (135-145); Total Iron Binding Capacity 215 mcg/dL (228-428); Total Protein 6.3 g/dL (6.5-8.0); Unsaturated Iron Binding 130 ug/dL
[2021-10-30 08:28] LABS: B Type Natriuretic Peptide 169 pg/mL (<100)
[2021-10-30 08:32] LABS: Estimated Average Glucose 91 mg/dL; Hemoglobin A1c % 4.8 %
[2021-10-30 08:43] LABS: Ferritin 1088 ng/mL (20-250)
[2021-10-30 09:00] LABS: Folate 6.1 ng/mL (> or = 4.0); Vitamin B12 376 pg/mL (200-900)
== END 2021-10-30 07:18 | disposition home or self-care (01) ==
LOC: HO.LAB 07:17
PROVIDERS: Absent Provider Internal Medicine Cardiovascular Disease; PCP Internal Medicine; Referring Provider Internal Medicine Nephrology; Visit Provider Internal Medicine
DX: I25.5 Ischemic cardiomyopathy (principal); N17.9 Acute kidney failure, unspecified; R73.02 Impaired glucose tolerance (oral); D64.9 Anemia, unspecified
CPT/HCPCS: 36415; 80053; 82607; 82728; 82746; 83036; 83540; 83880; 85025; 85045

== ENCOUNTER → 2021-11-07 10:31 | Outpatient (BNVA) | payer MEDICARE, OTHER, SELFPAY | PROVIDERS: PCP Internal Medicine; Referring Provider Internal Medicine; Visit Provider Internal Medicine Cardiovascular Disease | DX: I50.20 Unspecified systolic (congestive) heart failure (principal); I25.10 Atherosclerotic heart disease of native coronary artery without angina pectoris; I25.2 Old myocardial infarction; Z79.82 Long term (current) use of aspirin; Z79.899 Other long term (current) drug therapy | CPT/HCPCS: 99212 ==

== ENCOUNTER 2021-11-27 06:25 | Outpatient (REF) | payer MEDICARE, OTHER, SELFPAY ==
[2021-11-27 08:02] LABS: Anion Gap 13 (12-20); Blood Urea Nitrogen 22 mg/dL (9-16); Calcium 8.9 mg/dL (8.4-10.2); Carbon Dioxide 21 mmol/L (22-29); Chloride 104 mmol/L (96-108); Estimated Glomerular Filt Rate 25; Glucose Random 97 mg/dL (60-115); Potassium 4.7 mmol/L (3.3-5.1); Sodium 133 mmol/L (135-145)
[2021-11-27 08:11] LABS: B Type Natriuretic Peptide 158 pg/mL (<100)
[2021-11-27 08:25] LABS: Prostate Specific Antigen 0.18 ng/mL (<0.05-4.0)
== END 2021-11-27 06:26 | disposition home or self-care (01) ==
LOC: HO.LAB 06:25
PROVIDERS: Absent Provider Internal Medicine Cardiovascular Disease; PCP Internal Medicine; Referring Provider Internal Medicine; Visit Provider Nurse Practitioner Family
DX: I50.20 Unspecified systolic (congestive) heart failure (principal); Z12.5 Encounter for screening for malignant neoplasm of prostate
CPT/HCPCS: 36415; 80048; 83880; 84153

== ENCOUNTER 2022-01-22 07:41 | Outpatient (REF) | payer MEDICARE, OTHER, SELFPAY ==
[2022-01-22 07:53] LABS: MANUAL DIFF FLAG NO
[2022-01-22 07:57] LABS: Basophils Percent Auto 0.4 % (0-2); Eosinophils Absolute Auto 0.2 X10*3/uL (0.0-0.4); Eosinophils Percent Auto 2.2 % (0-4); Hematocrit 31.3 % (42.0-52.0); Imm Gran Abs Auto 0.02 X10*3/uL (0.00-0.03); Imm Gran Pct Auto 0.3 % (0.0-0.4); Lymphocytes Absolute Auto 3.3 X10*3/uL (1.2-4.9); Lymphocytes Percent Auto 46.6 % (20-40); Mean Corpuscular HGB Conc 31.9 g/dl (31.0-36.0); Mean Corpuscular Hemoglobin 32.2 pg (27.0-33.0); Mean Corpuscular Volume 100.6 fL (80.0-98.0); Mean Platelet Volume 9.3 fL (9.4-12.4); Monocytes Absolute Auto 0.6 X10*3/uL (0.1-1.2); Monocytes Percent Auto 8.3 % (2-11); Neutrophils Percent Auto 42.2 % (45-73); Platelet Count 171 X10*3/uL (160-400); Red Blood Count 3.11 X10*6/uL (4.60-5.80); Red Cell Distribution Width 13.3 % (11.0-16.0); White Blood Count 7.2 X10*3/uL (4.8-10.8)
[2022-01-22 08:23] LABS: Alanine Aminotransferase 35 U/L (0-40); Albumin Level 3.9 g/dL (3.5-5.0); Alkaline Phosphatase 76 U/L (39-117); Anion Gap 17 (12-20); Aspartate Amino Transferase 60 U/L (5-37); Bilirubin Total 0.4 mg/dL (0.0-1.0); Blood Urea Nitrogen 23 mg/dL (9-16); Calcium 8.9 mg/dL (8.4-10.2); Carbon Dioxide 20 mmol/L (22-29); Chloride 103 mmol/L (96-108); Estimated Glomerular Filt Rate 21; Glucose Random 102 mg/dL (60-115); Potassium 4.7 mmol/L (3.3-5.1); Sodium 135 mmol/L (135-145); Total Protein 6.5 g/dL (6.5-8.0)
[2022-01-22 08:29] LABS: B Type Natriuretic Peptide 127 pg/mL (<100)
== END 2022-01-22 07:42 | disposition home or self-care (01) ==
LOC: HO.LAB 07:41
PROVIDERS: PCP Internal Medicine; Visit Provider Internal Medicine Cardiovascular Disease
DX: I50.20 Unspecified systolic (congestive) heart failure (principal)
CPT/HCPCS: 36415; 80053; 83880; 85025

== ENCOUNTER → 2022-02-03 10:46 | Outpatient (BNVA) | payer MEDICARE, OTHER, SELFPAY | PROVIDERS: PCP Internal Medicine; Referring Provider Internal Medicine; Visit Provider Internal Medicine Cardiovascular Disease | DX: I50.20 Unspecified systolic (congestive) heart failure (principal); I25.10 Atherosclerotic heart disease of native coronary artery without angina pectoris; M79.604 Pain in right leg; M79.605 Pain in left leg | CPT/HCPCS: 99212 ==

== ENCOUNTER 2022-02-19 08:05 | Outpatient (REF) | payer MEDICARE, SELFPAY ==
[2022-02-19 09:07] LABS: Anion Gap 14 (12-20); Blood Urea Nitrogen 12 mg/dL (9-16); Calcium 9.1 mg/dL (8.4-10.2); Carbon Dioxide 24 mmol/L (22-29); Chloride 107 mmol/L (96-108); Estimated Glomerular Filt Rate 40; Glucose Random 105 mg/dL (60-115); Potassium 3.8 mmol/L (3.3-5.1); Sodium 141 mmol/L (135-145)
== END 2022-02-19 08:06 | disposition home or self-care (01) ==
LOC: HO.LAB 08:05
PROVIDERS: PCP Internal Medicine; Visit Provider Internal Medicine Cardiovascular Disease
DX: N18.9 Chronic kidney disease, unspecified (principal)
CPT/HCPCS: 36415; 80048

== ENCOUNTER 2022-03-14 06:07 | Outpatient (REF) | payer MEDICARE, SELFPAY ==
[2022-03-14 08:21] LABS: HBc Num1 7.95 S/CO (0.00-0.79); Hepatitis B Surface Antigen Negative (Negative); ~HepC Num1 0.19 S/CO (0.00-0.79); ~Hepatitis B Surface Antibody REACTIVE (Nonreactive); ~Hepatitis C Antibody Nonreactive (Nonreactive)
[2022-03-14 11:54] LABS: HBc Num2 8.28 S/CO; HBc Num3 8.06 S/CO; Hepatitis B Core Antibody Reactive (Nonreactive)
[2022-03-17 14:25] LABS: Complement C3 93 mg/dL (82-185)
[2022-03-18 12:37] LABS: Kappa Light Chain, Free Serum 59.5 mg/L (3.3-19.4); Kappa/Lambda Lt Ch Free Ratio 1.79 (0.26-1.65); Lambda Light Chain, Free Serum 33.2 mg/L (5.7-26.3)
[2022-03-18 15:47] LABS: Prot Elec - Albumin 3.7 g/dL (3.8-4.8); Prot Elec - Alpha1 0.3 g/dL (0.2-0.3); Prot Elec - Alpha2 0.5 g/dL (0.5-0.9); Prot Elec - Beta 1 0.4 g/dL (0.4-0.6); Prot Elec - Beta 2 0.3 g/dL (0.2-0.5); Prot Elec - Total Protein 6.2 g/dL (6.1-8.1)
[2022-03-19 11:22] LABS: Anti Nuclear Antibody Screen POSITIVE (NEGATIVE); Anti Nuclear Antibody Titer 1:40 titer
== END 2022-03-14 06:08 | disposition home or self-care (01) ==
LOC: HO.LAB 06:07
PROVIDERS: PCP Internal Medicine; Referring Provider Internal Medicine Cardiovascular Disease; Visit Provider Internal Medicine Nephrology
DX: N18.4 Chronic kidney disease, stage 4 (severe) (principal); N25.0 Renal osteodystrophy; D63.1 Anemia in chronic kidney disease
CPT/HCPCS: 36415; 83521; 84165; 86038; 86039; 86160; 86704; 86706; 86803; 87340

== ENCOUNTER 2022-08-22 09:50 | Outpatient (REF) | payer MEDICARE, MEDICAID, SELFPAY ==
--- NOTE | ~2022-08-22 | US_ITS ---
EXAMINATION: ULTRASOUND RENAL WITH DOPPLER CLINICAL INFORMATION: CKD stage III COMPARISON: None. TECHNIQUE: Real-time color Doppler and duplex Doppler evaluation of the kidneys and renal vasculature was performed. FINDINGS: RENAL MEASUREMENTS: Right: 10.3 x 6.7 x 4.8 cm (Sag x AP x TV) Left: 10.8 x 7.1 x 5.9 cm (Sag x AP x TV) Formal renal ultrasound dictated separately. DOPPLER INTERROGATION: Aorta: 80 cm/sec Right Main Renal Artery: Proximal: Not visible Mid: 121 cm/sec Distal: 105 cm/sec Left Main Renal Artery: Proximal: Not visible Mid: 105 cm/sec Distal: 162 cm/sec Renal-Aortic Ratio (RAR): Right: 1.5 Left: 2.0 Interlobar Resistive Indices: Right: 0.63-0.76 Left: 0.78-0.86 US/US renal BI IMPRESSION: Nonvisualization of the proximal renal arteries bilaterally but the distal waveforms are within normal limits. Velocities of the mid and distal renal arteries bilaterally are not indicative of hemodynamically significant peripheral arterial disease. Mildly elevated resistive indices are consistent with the clinical history of chronic kidney disease.
--- NOTE | ~2022-08-22 | US_ITS ---
EXAMINATION: ULTRASOUND RENAL WITH DOPPLER CLINICAL INFORMATION: CKD stage III COMPARISON: None. TECHNIQUE: Real-time color Doppler and duplex Doppler evaluation of the kidneys and renal vasculature was performed. FINDINGS: RENAL MEASUREMENTS: Right: 10.3 x 6.7 x 4.8 cm (Sag x AP x TV) Left: 10.8 x 7.1 x 5.9 cm (Sag x AP x TV) Formal renal ultrasound dictated separately. DOPPLER INTERROGATION: Aorta: 80 cm/sec Right Main Renal Artery: Proximal: Not visible Mid: 121 cm/sec Distal: 105 cm/sec Left Main Renal Artery: Proximal: Not visible Mid: 105 cm/sec Distal: 162 cm/sec Renal-Aortic Ratio (RAR): Right: 1.5 Left: 2.0 Interlobar Resistive Indices: Right: 0.63-0.76 Left: 0.78-0.86 US/US renal doppler IMPRESSION: Nonvisualization of the proximal renal arteries bilaterally but the distal waveforms are within normal limits. Velocities of the mid and distal renal arteries bilaterally are not indicative of hemodynamically significant peripheral arterial disease. Mildly elevated resistive indices are consistent with the clinical history of chronic kidney disease.
== END 2022-08-22 09:51 | disposition home or self-care (01) ==
LOC: HO.US 09:50
PROVIDERS: PCP Internal Medicine; Visit Provider Internal Medicine Nephrology
DX: N25.0 Renal osteodystrophy (principal); N18.32 Chronic kidney disease, stage 3b
CPT/HCPCS: 76775; 93975

== ENCOUNTER 2022-09-29 06:20 | Outpatient (REF) | payer MEDICARE, MEDICAID, SELFPAY ==
[2022-09-29 06:30] LABS: MANUAL DIFF FLAG NO
[2022-09-29 07:31] LABS: Basophils Percent Auto 0.2 % (0-2); Eosinophils Absolute Auto 0.1 X10*3/uL (0.0-0.4); Eosinophils Percent Auto 1.6 % (0-4); Hematocrit 48.5 % (42.0-52.0); Hemoglobin 15.9 g/dl (14.0-18.0); Imm Gran Abs Auto 0.03 X10*3/uL (0.00-0.03); Imm Gran Pct Auto 0.3 % (0.0-0.4); Immature Retic Fraction 8.7 % (2.3-13.4); Lymphocytes Absolute Auto 3.4 X10*3/uL (1.2-4.9); Lymphocytes Percent Auto 38.3 % (20-40); Mean Corpuscular HGB Conc 32.8 g/dl (31.0-36.0); Mean Corpuscular Hemoglobin 32.5 pg (27.0-33.0); Mean Corpuscular Volume 99.2 fL (80.0-98.0); Mean Platelet Volume 10.3 fL (9.4-12.4); Monocytes Absolute Auto 0.6 X10*3/uL (0.1-1.2); Monocytes Percent Auto 6.9 % (2-11); Neutrophils Absolute Auto 4.7 x10*3/uL (2.0-8.3); Neutrophils Percent Auto 52.7 % (45-73); Platelet Count 145 X10*3/uL (160-400); Red Blood Count 4.89 X10*6/uL (4.60-5.80); Red Cell Distribution Width 13.1 % (11.0-16.0); Retic HGB Equivalent 37.8 pg (30.0-35.0); Reticulocyte Percent 1.8 % (0.5-1.8); Reticulocytes Absolute 0.089 X10*6/uL (0.026-0.095); White Blood Count 8.9 X10*3/uL (4.8-10.8)
[2022-09-29 07:39] LABS: Estimated Average Glucose 105 mg/dL; Hemoglobin A1c % 5.3 %
[2022-09-29 07:47] LABS: B Type Natriuretic Peptide 137 pg/mL (<100)
[2022-09-29 08:09] LABS: Alanine Aminotransferase 31 U/L (0-40); Albumin Level 3.8 g/dL (3.5-5.0); Alkaline Phosphatase 86 U/L (39-117); Anion Gap 12 (12-20); Aspartate Amino Transferase 45 U/L (5-37); Bilirubin Total 0.8 mg/dL (0.0-1.0); Blood Urea Nitrogen 6 mg/dL (9-16); Calcium 9.2 mg/dL (8.4-10.2); Carbon Dioxide 29 mmol/L (22-29); Chloride 104 mmol/L (96-108); Cholesterol 119 mg/dL; Estimated Glomerular Filt Rate 56; Glucose Random 118 mg/dL (60-115); HDL Cholesterol 47 mg/dL; Iron 87 mcg/dL (45-160); LDL Cholesterol Calculated 50 mg/dl; Magnesium 2.6 mg/dL (1.6-2.6); Percent Iron Saturation 40 % (15-50); Potassium 3.7 mmol/L (3.3-5.1); Sodium 141 mmol/L (135-145); Total Iron Binding Capacity 216 mcg/dL (228-428); Total Protein 6.5 g/dL (6.5-8.0); Triglycerides 112 mg/dL; Unsaturated Iron Binding 129 ug/dL
[2022-09-29 08:40] LABS: Ferritin 107 ng/mL (20-250); Folate 10.1 ng/mL (> or = 4.0); Free T4 (Free Thyroxine) 0.83 ng/dL (0.71-1.85); Thyroid Stimulating Hormone 0.99 uIU/mL (0.32-4.0); Vitamin B12 462 pg/mL (200-900); Vitamin D 25-OH Total 7.7 ng/mL (>30)
== END 2022-09-29 06:21 | disposition home or self-care (01) ==
LOC: HO.LAB 06:20
PROVIDERS: PCP Internal Medicine; Visit Provider Internal Medicine
DX: R73.02 Impaired glucose tolerance (oral) (principal); I50.20 Unspecified systolic (congestive) heart failure; D64.9 Anemia, unspecified; E78.00 Pure hypercholesterolemia, unspecified; N18.9 Chronic kidney disease, unspecified; E55.9 Vitamin D deficiency, unspecified
CPT/HCPCS: 36415; 80053; 80061; 82306; 82607; 82728; 82746; 83036; 83540; 83735; 83880; 84439; 84443; 85025; 85045

== ENCOUNTER 2022-10-30 06:08 | Emergency (ER) | payer MEDICARE, MEDICAID, SELFPAY ==
--- NOTE | ~2022-10-30 | XR_ITS ---
EXAMINATION: XR CHEST CLINICAL INFORMATION: Cough COMPARISON: 09/09/2021 TECHNIQUE: 2 views of the chest were obtained. FINDINGS: Patient is status post median sternotomy for CABG procedure. There is no cardiomegaly. Lungs are clear. There is stable blunting of left costophrenic angle likely chronic small pleural effusion. XR/XR chest 2V IMPRESSION: Small pleural effusion on the left
[2022-10-30 06:10] VITALS: BP 150/73; PULSE 81; RESP 16; TEMP 36.6; O2SAT 96; BMI 28.1
--- NOTE | 2022-10-30 07:17 | ECG_ITS ---
Test Reason : weakness Blood Pressure : / mmHG Vent. Rate : 070 BPM Atrial Rate : 070 BPM P-R Int : 174 ms QRS Dur : 154 ms QT Int : 452 ms P-R-T Axes : 071 093 069 degrees QTc Int : 488 ms Normal sinus rhythm Right bundle branch block cannot exclude old Inferior infarct (cited on or before 27-DEC-2011) Abnormal ECG When compared with ECG of 10-SEP-2021 02:27, Premature ventricular complexes are no longer Present T wave inversion more evident in Anterior leads Referred By: Maryam Miranda Electronically Signed By:GILMER CORRALES
--- NOTE | 2022-10-30 07:42 | ED_ITS ---
HPI - Weakness General Chief complaint: Weakness Stated complaint: unable to walk without assistance Time Seen by Provider: 10/30/22 07:14 Source: patient Mode of arrival: ambulatory History of Present Illness HPI Narrative: 62-year-old male with significant CAD history, CKD, continues to smoke, hypertensive, daily drinker but states last drink was 3-4 days ago and denies any significant withdrawal symptoms such as seizures in the past. Patient presents with waxing and waning complaints of weakness into bilateral lower extremities but denies any associated pain/color change. Patient states that has become much worse over the past 3-4 days and has not been associated with any fevers, chills, abdominal pain, shortness of breath/chest pain/palpitations and denies any nausea/vomiting/diarrhea. Related Data Home Medications Medication Instructions Recorded Confirmed aspirin 81 mg tablet,delayed 81 mg PO DAILY 09/10/21 10/03/22 release amlodipine 5 mg tablet 5 mg PO DAILY 03/21/22 10/03/22 Previous Rx's Medication Instructions Recorded furosemide 20 mg tablet (Lasix) 20 mg PO DAILY PRN weight gain #30 05/16/22 tabs ezetimibe 10 mg tablet 10 mg PO DAILY #90 tabs 05/21/22 isosorbide mononitrate 30 mg 30 mg PO DAILY 90 days #90 tabs 08/21/22 tablet,extended release 24 hr omeprazole 20 mg capsule,delayed 20 mg PO BID 90 days #180 caps 09/05/22 release metoprolol succinate 50 mg 50 mg PO DAILY 90 days #90 tabs 09/29/22 tablet,extended release 24 hr zolpidem 5 mg tablet 5 mg PO BEDTIME PRN Insomnia #30 10/03/22 tabs rosuvastatin 40 mg tablet 40 mg PO DAILY 90 days #90 tabs 10/14/22 Allergies Allergy/AdvReac Type Severity Reaction Status Date / Time ARB-Angiotensin Receptor AdvReac Severe [place]ORD Verified 10/30/22 06:16 Antagonist MALVIN Inhibitors AdvReac Intermediate [place] Verified 10/30/22 06:16 Review of Systems Review of Systems: Pertinent positives and negatives as stated in HPI [facility] Past Medical History Source: nursing notes reviewed Medical History Adult general medical exam Colon cancer screening Colonoscopy refused COPD (chronic obstructive pulmonary disease) Coronary artery disease GERD (gastroesophageal reflux disease) Heart failure with reduced ejection fraction Hypercholesterolemia Hypertension Insomnia Ischemic cardiomyopathy Obesity (BMI 30-39.9) Screening for prostate cancer Umbilical hernia Surgical History Hx of CABG Family History Family History Father No problems noted. Mother No problems noted. Sister No problems noted. Sister No problems noted. Brother No problems noted. Brother Myocardial infarct Liver cancer Social History Social History Household Members: Family Housing: Apartment Do you presently have visiting nurse or other home services: No Alcohol intake: current Alcohol intake frequency: 3 or more drinks per day Alcohol type: beer Patient Tobacco Use Status: Former Tobacco user Tobacco use type: Cigarette Cigarettes Per Day: 10 Smoked in Last 30 Days: No e-Cigarette/Vaping Use: Never Used Second Hand Smoke Exposure: No Use of substances other than those prescribed or required for medical reasons: Yes Substance Use Type: Marijuana Substance Use Frequency: Daily Advance Directives: Yes Advance Directives on File: Yes Advance Directives Date on File: 02/16/20 service: No Current occupational status: disabled Cognitive needs: No Hearing needs: No Vision needs: Yes Physical Exam Vital Signs: Vital Signs: Last Vital Signs Temp 97.8 F 10/30/22 06:10 Pulse 69 10/30/22 08:22 Resp 14 10/30/22 08:22 BP 127/62 10/30/22 08:22 Pulse Ox 96 10/30/22 08:22 O2 Del Method Room Air 10/30/22 08:22 BMI result Body Mass Index 28.1 VITAL SIGNS: Reviewed. GENERAL: Chronically ill, appears older than stated age, in no acute distress. HEAD: Normocephalic/atraumatic EYES: PERRLA, EOMI EARS: Ext canals without abnormality NOSE: Nares patent bilateral OROPHARYNX: no oral lesions noted, posterior pharynx clear NECK: Supple, no adenopathy LUNGS: Normal breath sounds. No adventitious sounds or accessory muscle use. SpO2<96> CARDIOVASCULAR: Regular rate and rhythm without noted murmurs, no JVD but bilateral 1+ pitting edema at the ankles ABDOMEN: Soft, non-tender, non-distended with bowel sounds. Femoral pulses symmetrical/palpable MUSCULOSKELETAL: No tenderness, deformities, or effusions noted on gross inspection. EXTREMITIES: No cyanosis, clubbing or edema, bilateral AT pulses palpable symmetrical. SKIN: Inspection of the skin reveals no rashes NEUROLOGIC: Alert and oriented x 4. Strength and sensation to light touch were grossly intact x 4. Medical Decision Making Medical Decision Making MDM Narrative: 62-year-old male with history and clinical presentation a weakness, he does not have any evidence to suggest acute CHF or COPD exacerbation, no symptoms to sug gest rest pain but I do think this patient is a vasculopath and likely has extensive PAD/PVD. Will evaluate with lab work, he states he did follow-up with his primary care provider approximately 1 month ago but has not followed up with his patients transporter after discharge in September for an NSTEMI. EKG does demonstrate changes in ST segments which may be associated with underlying RBBB but I spoke discussed the case with cardiology as well ([id number]) 0823: Cardiology feels that this is most consistent with the right bundle branch block especially could taken in the context with absent chest pain. 0930: I reviewed all investigations and there are no acute changes, will proceed with 2nd troponin although I feel that this is just chronically elevated as patient is otherwise asymptomatic, it is noted that he has elevated LFTs although I feel that this is associated with alcohol use as he denies any abdominal pain or symptoms to suggest a choledocholithiasis. I did discuss with patient the option of going into short-term rehab through case management and he is declining the process here and states that he will go home and the discuss this with his primary care provider. Serial troponins are flat an EKG without acute changes to this chest underlying cardiac etiology and patient is asymptomatic for chest pain or palpitations or shortness of breath. He is otherwise discharged home as he does not wish to pursue short-term rehab through the emergency room and case management. No evidence to suggest rest pain or claudication. Differential Diagnosis Please see the discussion above Admission/Observation Consideration of admission/observation: Escalation of care including admiss ion/observation considered Please see the discussion above Consult Healthcare Provider Management of the patient was discussed with: Boiler Tender Please see the discussion above Lab Data Please see the discussion above 10/30/22 07:54 10/30/22 07:54 Labs: Lab Results 10/30/22 10/30/2223 Range/Units 07:54 07:54 07:54 WBC 8.8 (4.8-10.8) X10*3/uL RBC 4.68 (4.60-5.80) X10*6/uL Hgb 15.3 (14.0-18.0) g/dl Hct 45.7 (42.0-52.0) % MCV 97.6 (80.0-98.0) fL MCH 32.7 (27.0-33.0) pg MCHC 33.5 (31.0-36.0) g/dl RDW 13.1 (11.0-16.0) % Plt Count 142 L (160-400) X10*3/uL MPV 10.4 (9.4-12.4) fL Immature Gran % (Auto) 0.2 (0.0-0.4) % Neut % (Auto) 74.3 H (45-73) % Lymph % (Auto) 17.3 L (20-40) % [place] % (Auto) 7.2 (2-11) % Eos % (Auto) 0.7 (0-4) % Baso % (Auto) 0.3 (0-2) % Lymph # (Auto) 1.5 (1.2-4.9) X10*3/uL [place] # (Auto) 0.6 (0.1-1.2) X10*3/uL Eos # (Auto) 0.1 (0.0-0.4) X10*3/uL Baso # (Auto) 0.0 (0.0-0.2) X10*3/uL Abs Immat Gran (auto) 0.02 (0.00-0.03) X10*3/uL Absolute Neuts (auto) 6.5 (2.0-8.3) x10*3/uL Absolute Nucleated RBC 0.000 (0.0-0.012) X10*3/uL Nucleated RBC % (auto) 0.0 (0.0-0.2) /100WBC PT 11.5 (10.0-13.1) SEC INR 1.0 (0.9-1.1) Sodium 138 (135-145) mmol/L Potassium 3.7 (3.3-5.1) mmol/L Chloride 102 (96-108) mmol/L Carbon Dioxide 27 (22-29) mmol/L Anion Gap 13 (12-20) BUN 13 (9-16) mg/dL Creatinine 1.11 (0.5-1.4) mg/dL Estim Creat Clear Calc 74.0 Estimated GFR > 60 Random Glucose 116 H (60-115) mg/dL Calcium 9.7 (8.4-10.2) mg/dL Total Bilirubin 1.1 H (0.0-1.0) mg/dL AST 196 H (5-37) U/L ALT 217 H (0-40) U/L Alkaline Phosphatase 64 (39-117) U/L Troponin I High Sens (<3.5-35.0) ng/L B-Natriuretic Peptide (<100) pg/mL Total Protein 6.1 L (6.5-8.0) g/dL Albumin 3.5 (3.5-5.0) g/dL Lipase 34 (8-78) U/L 10/30/22 10/30/22 10/30/22 Range/Units 07:54 07:54 10:21 WBC (4.8-10.8) X10*3/uL RBC (4.60-5.80) X10*6/uL Hgb (14.0-18.0) g/dl Hct (42.0-52.0) % MCV (80.0-98.0) fL MCH (27.0-33.0) pg MCHC (31.0-36.0) g/dl RDW (11.0-16.0) % Plt Count (160-400) X10*3/uL MPV (9.4-12.4) fL Immature Gran % (Auto) (0.0-0.4) % Neut % (Auto) (45-73) % Lymph % (Auto) (20-40) % [place] % (Auto) (2-11) % Eos % (Auto) (0-4) % Baso % (Auto) (0-2) % Lymph # (Auto) (1.2-4.9) X10*3/uL [place] # (Auto) (0.1-1.2) X10*3/uL Eos # (Auto) (0.0-0.4) X10*3/uL Baso # (Auto) (0.0-0.2) X10*3/uL Abs Immat Gran (auto) (0.00-0.03) X10*3/uL Absolute Neuts (auto) (2.0-8.3) x10*3/uL Absolute Nucleated RBC (0.0-0.012) X10*3/uL Nucleated RBC % (auto) (0.0-0.2) /100WBC PT (10.0-13.1) SEC INR (0.9-1.1) Sodium (135-145) mmol/L Potassium (3.3-5.1) mmol/L Chloride (96-108) mmol/L Carbon Dioxide (22-29) mmol/L Anion Gap (12-20) BUN (9-16) mg/dL Creatinine (0.5-1.4) mg/dL Estim Creat Clear Calc Estimated GFR Random Glucose (60-115) mg/dL Calcium (8.4-10.2) mg/dL Total Bilirubin (0.0-1.0) mg/dL AST (5-37) U/L ALT (0-40) U/L Alkaline Phosphatase (39-117) U/L Troponin I High Sens 47.1 H 44.4 H (<3.5-35.0) ng/L B-Natriuretic Peptide 111 H (<100) pg/mL Total Protein (6.5-8.0) g/dL Albumin (3.5-5.0) g/dL Lipase (8-78) U/L Independent Interpretation I performed an independent interpretation of an: EKG Interpretation: Normal sinus rhythm, HR-70, no STEMI, RBBB at baseline, NM/QTC is within normal limits. Radiology Impression Radiologist Impression: My interpretation is in agreement with radiology's impression. External Record Review External record reviewed: Outpatient record and Prior outpatient labs Chronic Conditions Patient?s care impacted by: Hypertension Discharge Plan Discharge Clinical Impression: Weakness, Alcohol use disorder, Physical deconditioning Patient Disposition: Home, Self-Care Instructions: Weakness (ED), Fatigue (ED) Additional Instructions: 1. Resume all home medications as prescribed. 2. Please follow-up with your primary care provider and patients transporter within the next 1-2 days. You need to discuss short-term rehab as an option for strengthening. Or, consider physical therapy. Return to the ER for any worsening symptoms. Prescriptions: No Action furosemide [Lasix] 20 mg tablet 20 mg PO DAILY PRN (Reason: weight gain) Qty: 30 5RF ezetimibe 10 mg tablet 10 mg PO DAILY Qty: 90 3RF isosorbide mononitrate 30 mg tablet extended release 24 hr 30 mg PO DAILY 90 Days Qty: 90 3RF omeprazole 20 mg capsule,delayed release(DR/EC) 20 mg PO BID 90 Days Qty: 180 3RF metoprolol succinate 50 mg tablet extended release 24 hr 50 mg PO DAILY 90 Days Qty: 90 2RF rosuvastatin 40 mg tablet 40 mg PO DAILY 90 Days Qty: 90 2RF aspirin 81 mg Tablet,Delayed Release (Dr/Ec) 81 mg PO DAILY amlodipine 5 mg tablet 5 mg PO DAILY zolpidem 5 mg tablet 5 mg PO BEDTIME PRN (Reason: Insomnia) Qty: 30 0RF
[2022-10-30 07:58] LABS: MANUAL DIFF FLAG NO
[2022-10-30 08:00] LABS: Basophils Percent Auto 0.3 % (0-2); Eosinophils Absolute Auto 0.1 X10*3/uL (0.0-0.4); Eosinophils Percent Auto 0.7 % (0-4); Hematocrit 45.7 % (42.0-52.0); Hemoglobin 15.3 g/dl (14.0-18.0); Imm Gran Abs Auto 0.02 X10*3/uL (0.00-0.03); Imm Gran Pct Auto 0.2 % (0.0-0.4); Lymphocytes Absolute Auto 1.5 X10*3/uL (1.2-4.9); Lymphocytes Percent Auto 17.3 % (20-40); Mean Corpuscular HGB Conc 33.5 g/dl (31.0-36.0); Mean Corpuscular Hemoglobin 32.7 pg (27.0-33.0); Mean Corpuscular Volume 97.6 fL (80.0-98.0); Mean Platelet Volume 10.4 fL (9.4-12.4); Monocytes Absolute Auto 0.6 X10*3/uL (0.1-1.2); Monocytes Percent Auto 7.2 % (2-11); Neutrophils Absolute Auto 6.5 x10*3/uL (2.0-8.3); Neutrophils Percent Auto 74.3 % (45-73); Platelet Count 142 X10*3/uL (160-400); Red Blood Count 4.68 X10*6/uL (4.60-5.80); Red Cell Distribution Width 13.1 % (11.0-16.0); White Blood Count 8.8 X10*3/uL (4.8-10.8)
[2022-10-30 08:05] LABS: Prothrombin Time 11.5 SEC (10.0-13.1)
[2022-10-30 08:14] LABS: Alanine Aminotransferase 217 U/L (0-40); Albumin Level 3.5 g/dL (3.5-5.0); Alkaline Phosphatase 64 U/L (39-117); Anion Gap 13 (12-20); Aspartate Amino Transferase 196 U/L (5-37); Bilirubin Total 1.1 mg/dL (0.0-1.0); Blood Urea Nitrogen 13 mg/dL (9-16); Calcium 9.7 mg/dL (8.4-10.2); Carbon Dioxide 27 mmol/L (22-29); Chloride 102 mmol/L (96-108); Estimated Glomerular Filt Rate > 60; Glucose Random 116 mg/dL (60-115); Potassium 3.7 mmol/L (3.3-5.1); Sodium 138 mmol/L (135-145); Total Protein 6.1 g/dL (6.5-8.0)
[2022-10-30 08:21] LABS: Troponin-I High Sensitivity 47.1 ng/L (<3.5-35.0)
[2022-10-30 08:22] VITALS: BP 127/62; PULSE 69; RESP 14; O2SAT 96
[2022-10-30 08:42] LABS: Lipase 34 U/L (8-78)
[2022-10-30 08:57] LABS: B Type Natriuretic Peptide 111 pg/mL (<100)
[2022-10-30 10:56] LABS: Troponin-I High Sensitivity 44.4 ng/L (<3.5-35.0)
[2022-10-30 11:23] VITALS: BP 132/65; PULSE 70; RESP 15; TEMP 36.6; O2SAT 97
== END 2022-10-30 11:49 | disposition home or self-care (01) ==
PROVIDERS: Emergency Provider Student in an Organized Health Care Education/Training Program
DX: R53.1 Weakness (principal); R53.81 Other malaise; F10.99 Alcohol use, unspecified with unspecified alcohol-induced disorder; Y90.9 Presence of alcohol in blood, level not specified; R60.0 Localized edema; R05.9 Cough, unspecified; I13.0 Hypertensive heart and chronic kidney disease with heart failure and stage 1 through stage 4 chronic kidney disease, or unspecified chronic kidney disease; N18.9 Chronic kidney disease, unspecified; I50.9 Heart failure, unspecified; E78.00 Pure hypercholesterolemia, unspecified; F12.90 Cannabis use, unspecified, uncomplicated; F17.200 Nicotine dependence, unspecified, uncomplicated; Z79.82 Long term (current) use of aspirin; Z79.899 Other long term (current) drug therapy
CPT/HCPCS: 36415; 71046; 80053; 83690; 83880; 84484; 85025; 85610; 93005; 99283; 99285

== ENCOUNTER 2022-11-13 11:42 | Outpatient (AMB) | payer MEDICARE, MEDICAID, SELFPAY ==
[2022-11-13 11:44] VITALS: BP 134/70; PULSE 69; O2SAT 93; BMI 28.9
--- NOTE | 2022-11-13 11:44 | MHC.PC.OV ---
Vital Signs 11/13/22 11:44 Height 5 ft 9 in Weight 196 lb BMI 28.9 BP 134/70 Blood Pressure Location Lt brachial Position Sitting Pulse 69 Pulse Source Pulse Oximeter Temp Source Skin Pulse Oximetry (%) 93 Oxygen Delivery Method Room Air Intake Visit Reasons: R eye cataract surgery-11/26 Intake Note: Patient is here for a Pre-op for Cataract Surgery scheduled with rigo Curtis on 11/26. Line Maintenance Required: No Allergies ARB-Angiotensin Receptor Antagonist Adverse Reaction (Severe, Verified 11/13/22 12:00) [place] MALVIN Inhibitors Adverse Reaction (Intermediate, Verified 11/13/22 12:00) [place] Medication List - Last Reconciled 11/13/22 by ROOSEVELT Patricia amlodipine 5 mg PO DAILY aspirin 81 mg PO DAILY ezetimibe 10 mg PO DAILY furosemide (Lasix) 20 mg PO DAILY PRN isosorbide mononitrate ER 30 mg PO DAILY 90 days metoprolol succinate ER 50 mg PO DAILY 90 days omeprazole 20 mg PO BID 90 days rosuvastatin 40 mg PO DAILY 90 days zolpidem 5 mg PO BEDTIME PRN Tobacco use date assessed: 11/13/22 Dental Screening Dental Screen Date: 11/13/22 Did you have a dental visit in the last 12 months?: No Did you have a dental problem in the last 6 months where you did not have access to dental care?: No HPI R eye cataract surgery-11/26 HPI Details Patient is a 62-year-old male who presents today for preop clearance. Pt of Dr. Jorge. Surgery/Date: Right eye cataract surgery 11/26/2022, Left eye surgery one month later per pt. patient reports blurry vision in his right eye. Surgeon: Dr. Curtis Location: [facility], [place], [place] Anaesthesia: Local. Patient reports history of general anesthesia in the past that he tolerated well. Patient denies history of perioperative hypothermia or blood clotting disorders. Patient is on Aspirin 81 mg daily. Medical history significant for hypercholesterolemia, impaired glucose tolerance, tobacco abuse, anemia, insomnia, alcohol abuse, heart failure with reduced ejection fraction - followed by [facility], CAD, CKD, GERD, overweight, hypertension. Patient denies shortness of breath or chest pain. [facility] Medical History Adult general medical exam Colon cancer screening Colonoscopy refused COPD (chronic obstructive pulmonary disease) Coronary artery disease GERD (gastroesophageal reflux disease) Heart failure with reduced ejection fraction Hypercholesterolemia Hypertension Insomnia Ischemic cardiomyopathy Obesity (BMI 30-39.9) Screening for prostate cancer Umbilical hernia Surgical History Hx of CABG Family History Father No problems noted. Mother No problems noted. Sister No problems noted. Sister No problems noted. Brother No problems noted. Brother Myocardial infarct Liver cancer Social History Household Members: Family Housing: Apartment Do you presently have visiting nurse or other home services: No Alcohol intake: current Alcohol intake frequency: 3 or more drinks per day Alcohol type: beer Patient Tobacco Use Status: Former Tobacco user Tobacco use type: Cigarette Cigarettes Per Day: 10 e-Cigarette/Vaping Use: Never Used Second Hand Smoke Exposure: No Substance Use Type: Marijuana Advance Directives Date on File: 02/16/20 service: No Current occupational status: disabled Cognitive needs: No Hearing needs: No Vision needs: Yes Questionnaire Thrive Questionnaire Date Thrive assessed: 07/03/22 AUDIT C Alcohol Use Questionnaire (AUDIT-C) 1. How often do you have a drink containing alcohol?: 4 or more times a week 2. How many drinks containing alcohol do you have on a typical day when you are drinking?: 3 or 4 3. How often do you have six or more drinks on one occasion?: Less than monthly Total Score: 6 Score Reviewed/Action Taken: Yes JUAN-7 AMB Questionnaire JUAN-7 Date JUAN - 7 assessed: 07/03/22 Source: Developed by Drs. Johnny Araiza, Tamiko Mcdonald, Negrito Maurer and colleagues, with an educational franklin from [employer]. Review of Systems Const Denies body aches, Denies chills, Denies fever(s) and Denies headache(s) Eyes Reports as per HPI ENT Denies dizziness, Denies otalgia, Denies headache(s), Denies nasal discharge, Denies sinus pain and Denies sore throat Card Denies chest pain, Denies lightheadedness and Denies dyspnea Resp Denies cough and Denies dyspnea GI Denies constipation, Denies diarrhea, Denies nausea and Denies vomiting Denies dysuria Musc Denies myalgias Skin/Breast Denies rash Neuro Denies dizziness and Denies headache(s) Physical exam (Primary Care) Vital Signs: Last Vital Signs Pulse 69 11/13/22 11:44 BP 134/70 11/13/22 11:44 Pulse Ox 93 11/13/22 11:44 Oxygen Delivery Method Room Air 11/13/22 11:44 BMI result Body Mass Index 28.9 Tobacco/Smoking Status: Tobacco use Status Tobacco use date assessed 11/13/22 11/13/22 11:45 Patient Tobacco Use Status Former Tobacco user 11/13/22 11:45 Tobacco use type Cigarette 11/13/22 11:45 e-Cigarette/Vaping Use Never Used 11/13/22 11:45 Thrive Assessment: Date of Thrive Assessment Date Thrive assessed 07/03/22 11/13/22 11:45 Const General: cooperative and no acute distress Orientation/consciousness: patient oriented x3 HENMT Head: Yes normocephalic and Yes atraumatic Ears: TM's normal bilaterally Face and sinus: Yes sinuses nontender Mouth: oropharynx normal and moist mucous membranes Throat: Yes posterior oropharynx normal Eyes General: appearance normal, both eyes and all related structures Pupils: Equal, round and reactive pupils present EOM: EOMs intact bilaterally Neck Neck: Yes normal visual inspection, Yes full ROM and Yes no lymphadenopathy Thyroid: Thyroid normal Resp Effort & Inspection: normal respiratory effort and able to speak in complete sentences Auscultation: clear to auscultation bilaterally, no crackles, no rales, no rhonchi and no wheezes Cardio Rate: regular rate Rhythm: regular rhythm Heart sounds: S1 normal heart sound present, S2 normal heart sound present and no murmurs GI Palpation (GI): Soft to palpation, not firm, nontender, no guarding, not rigid and no hepatosplenomegaly Auscultation: normal bowel sounds General: No CVA tenderness Back/Spine/Pelvis Back: No CVA tenderness Skin General skin exam: no rashes or lesions noted Neuro General: patient oriented x3 Cranial nerves: Yes Equal, round and reactive pupils present Gait exam (Neuro): Normal gait present Extrem Other: Trace edema to bilateral lower extremity General: Yes full ROM Results Reviewed Results Reviewed: Laboratory Tests 11/18/22 11/18/22 11/18/22 06:52 06:52 06:52 WBC 9.0 RBC 4.77 Hgb 15.6 Hct 48.4 MCV 101.5 H MCH 32.7 MCHC 32.2 RDW 13.5 Plt Count 174 MPV 10.6 Absolute Nucleated RBC 0.000 Nucleated RBC % (auto) 0.0 PT 10.6 INR 0.9 Sodium 140 Potassium 4.0 Chloride 100 Carbon Dioxide 29 Anion Gap 15 BUN 7 L Creatinine 1.40 Estim Creat Clear Calc Not Reportable Estimated GFR 51 Random Glucose 99 Calcium 9.8 TSH 1.68 Assessment and Plan Assessment & Plan (1) Preoperative clearance: Code(s): Z01.818 - Encounter for other preprocedural examination Plan: METs > 4; RCRI Class 3 cardiovascular risk 6.6% for a low risk surgery (recent blood work 11/2022) Regarding preop clearance, the patient is at acceptable risk for proposed surgery. Reviewed with the patient that no surgery is completely free of risk and that this examination is to assist the surgeon in reviewing informed consent. Postop care including DVT prophylaxis per surgeon. Patient is cleared for surgery. Patient is to take blood pressure medications on the day of surgery with small sips of water and hold all other medications. 11/18/2022 EKG with no acute changes, reviewed by Dr. Jorge. Ordering Physician: Trinidad Tyson Date of Service: 11/18/22 Procedure(s): ECG 12 lead EKG Accession Number(s): [id number] cc: Trinidad Tyson~ Test Reason : preop Blood Pressure : / mmHG Vent. Rate : 061 BPM ? ? Atrial Rate : 061 BPM ?? P-R Int : 182 ms? QRS Dur : 164 ms ? ? QT Int : 456 ms ? ? ? P-R-T Axes : 072 092 064 degrees ?? QTc Int : 459 ms ? Normal sinus rhythm Right bundle branch block Possible Inferior infarct (cited on or before 27-DEC-2011) Abnormal ECG When compared with ECG of 30-OCT-2022 07:27, No significant change was found ? Referred By: Trinidad Tyson ? Electronically Signed By:CAM LOPEZ MD (2) Cataract: Code(s): H26.9 - Unspecified cataract Plan: Surgery/Date: Right eye cataract surgery 11/26/2022, Left eye surgery one month later per pt. Patient reports blurry vision in his right eye. Surgeon: Dr. Curtis Location: [facility], [place] Orders: Orders Basic Metabolic Panel Today Z01.818 - Encounter for other preprocedural examination TSH reflex Free T4 Today Z01.818 - Encounter for other preprocedural examination Prothrombin Time INR Today Z01.818 - Encounter for other preprocedural examination ECG 12 lead EKG Today Z01.818 - Encounter for other preprocedural examination Complete Blood Count no Diff Today Z01.818 - Encounter for other preprocedural examination Coding Level of Care Code Est Pt Level 3 (16740) Diagnoses Preoperative clearance Z01.818 Cataract H26.9
== END 2022-11-13 12:33 | disposition home or self-care (01) ==
PROVIDERS: PCP Internal Medicine; Visit Provider Nurse Practitioner Family
DX: Z01.818 Encounter for other preprocedural examination (principal); H26.9 Unspecified cataract
CPT/HCPCS: 99213

== ENCOUNTER → 2022-11-18 06:42 | Outpatient (REF) | payer MEDICARE, MEDICAID, SELFPAY ==
--- NOTE | 2022-11-18 07:01 | ECG_ITS ---
Test Reason : preop Blood Pressure : / mmHG Vent. Rate : 061 BPM Atrial Rate : 061 BPM P-R Int : 182 ms QRS Dur : 164 ms QT Int : 456 ms P-R-T Axes : 072 092 064 degrees QTc Int : 459 ms Normal sinus rhythm Right bundle branch block Possible Inferior infarct (cited on or before 27-DEC-2011) Abnormal ECG When compared with ECG of 30-OCT-2022 07:27, No significant change was found Referred By: Trinidad Tyson Electronically Signed By:CAM LOPEZ MD
[2022-11-18 07:15] LABS: Hematocrit 48.4 % (42.0-52.0); Hemoglobin 15.6 g/dl (14.0-18.0); Mean Corpuscular HGB Conc 32.2 g/dl (31.0-36.0); Mean Corpuscular Hemoglobin 32.7 pg (27.0-33.0); Mean Corpuscular Volume 101.5 fL (80.0-98.0); Mean Platelet Volume 10.6 fL (9.4-12.4); Platelet Count 174 X10*3/uL (160-400); Red Blood Count 4.77 X10*6/uL (4.60-5.80); Red Cell Distribution Width 13.5 % (11.0-16.0)
[2022-11-18 07:20] LABS: INTERNATIONAL NORM RATIO 0.9 (0.9-1.1); Prothrombin Time 10.6 SEC (10.0-13.1)
[2022-11-18 08:11] LABS: Anion Gap 15 (12-20); Blood Urea Nitrogen 7 mg/dL (9-16); Calcium 9.8 mg/dL (8.4-10.2); Carbon Dioxide 29 mmol/L (22-29); Chloride 100 mmol/L (96-108); Estimated Glomerular Filt Rate 51; Glucose Random 99 mg/dL (60-115); Sodium 140 mmol/L (135-145)
[2022-11-18 08:31] LABS: TSH reflex Free T4 1.68 uIU/mL (0.32-4.0)
== END ==
LOC: HO.CARD 06:42
PROVIDERS: PCP Internal Medicine; Visit Provider Nurse Practitioner Family
DX: Z01.818 Encounter for other preprocedural examination (principal); H26.9 Unspecified cataract; I25.10 Atherosclerotic heart disease of native coronary artery without angina pectoris; I12.9 Hypertensive chronic kidney disease with stage 1 through stage 4 chronic kidney disease, or unspecified chronic kidney disease; N18.9 Chronic kidney disease, unspecified
CPT/HCPCS: 36415; 80048; 84443; 85027; 85610; 93005

== ENCOUNTER → 2022-11-18 07:01 | Outpatient (BNV) | payer MEDICARE, MEDICAID, SELFPAY | PROVIDERS: PCP Internal Medicine; Visit Provider Internal Medicine Cardiovascular Disease | DX: R94.31 Abnormal electrocardiogram [ECG] [EKG] (principal); I45.10 Unspecified right bundle-branch block | CPT/HCPCS: 93010 ==

== ENCOUNTER 2023-01-02 15:42 | Inpatient (IN) | payer MEDICARE, MEDICAID, SELFPAY ==
--- NOTE | ~2023-01-02 | XR_ITS ---
EXAMINATION: XR CHEST CLINICAL INFORMATION: Weight loss. Weakness. COMPARISON: 10/30/2022 TECHNIQUE: 2 views of the chest were obtained. FINDINGS: The cardiomediastinal silhouette is stable. There is no focal lung consolidation. There is a small layering opacity at the left lung base. The bony structures and soft tissues are unremarkable. XR/XR chest 2V IMPRESSION: 1. Small left pleural effusion was seen previously and is stable to slightly increased in size. 2. No other significant abnormality seen.
[2023-01-02 15:54] VITALS: BP 130/60; PULSE 75; RESP 20; TEMP 36.9; O2SAT 90; BMI 28.6
[2023-01-02 16:58] VITALS: BP 102/50; PULSE 66; RESP 16; TEMP 36.9; O2SAT 93
--- NOTE | 2023-01-02 18:37 | ECG_ITS ---
Test Reason : weakness Blood Pressure : / mmHG Vent. Rate : 071 BPM Atrial Rate : 071 BPM P-R Int : 176 ms QRS Dur : 164 ms QT Int : 492 ms P-R-T Axes : 073 101 071 degrees QTc Int : 534 ms Normal sinus rhythm Right bundle branch block Abnormal ECG When compared with ECG of 18-NOV-2022 07:02, No significant change was found Referred By: Amita Cordero Electronically Signed By:RAE GEORGE
--- NOTE | 2023-01-02 18:39 | ED.GENADULT ---
HPI - General Adult General Chief complaint: General Medical Stated complaint: Lower extremity weakness x few months Time Seen by Provider: 01/02/23 17:46 Source: patient and EMS Mode of arrival: EMS Limitations: no limitations History of Present Illness HPI narrative: This is a 62-year-old male who was a history of coronary artery disease status post CABG, high cholesterol, hypertension, former smoker, daily alcohol use, congestive heart failure, CKD who presents to the ER with complaints of 2 weeks of lower extremity weakness. Patient reports he is only able to walk a few steps and has had several falls at home. Patient states he feels like his legs are going to give out. Patient also feels a his upper extremities have some weakness but denies any weakness in his trunk area. He denies any associated numbness or tingling or pain. No back pain. No incontinence of urine or stool. No fevers or chills. Patient denies any chest pain, shortness of breath, vomiting, diarrhea, abdominal pain. Patient reports he smoked for many years but did quit about 4 months ago. He used to drink beer daily 5 beers a day but did stop drinking 2 weeks ago. Related Data Home Medications Medication Instructions Recorded Confirmed aspirin 81 mg tablet,delayed 81 mg PO DAILY 09/10/21 01/02/23 release amlodipine 5 mg tablet 5 mg PO DAILY 03/21/22 01/02/23 furosemide 20 mg tablet (Lasix) 20 mg PO DAILY 01/02/23 01/02/23 omeprazole 20 mg capsule,delayed 20 mg PO BID@0630,1630 01/02/23 01/02/23 release zolpidem 5 mg tablet 5 mg PO BEDTIME 01/02/23 01/02/23 Previous Rx's Medication Instructions Recorded ezetimibe 10 mg tablet 10 mg PO DAILY #90 tabs 05/21/22 isosorbide mononitrate 30 mg 30 mg PO DAILY 90 days #90 tabs 08/21/22 tablet,extended release 24 hr metoprolol succinate 50 mg 50 mg PO DAILY 90 days #90 tabs 09/29/22 tablet,extended release 24 hr rosuvastatin 40 mg tablet 40 mg PO DAILY 90 days #90 tabs 10/14/22 Allergies Allergy/AdvReac Type Severity Reaction Status Date / Time ARB-Angiotensin Receptor AdvReac Severe STANFORD Verified 11/13/22 12:00 Antagonist MALVIN Inhibitors AdvReac Intermediate ST[place]ORD Verified 11/13/22 12:00 Review of Systems Review of Systems: Yes all other systems are reviewed and are negative Constitutional: Constitutional: Reports no additional constitutional complaints, Denies body ache(s), Denies chills, Denies fever(s), Denies headache(s), Denies night sweats, Reports weakness and Denies weight loss Eyes: Eyes: Reports no additional eye complaints and Denies change in vision ENT: Reports system reviewed and no additional complaints, except as documented, Denies dizziness, Denies headache(s), Denies nasal congestion, Denies nasal discharge and Denies neck pain Cardiovascular: Cardiovascular: Reports no additional cardiovascular complaints, Denies chest pain, Denies leg edema and Denies dyspnea Respiratory: Respiratory: Reports no additional respiratory complaints, Denies cough and Denies dyspnea Gastrointestinal: Gastrointestinal: Reports no additional gastrointestinal complaints, Denies abdominal pain, Denies diarrhea, Denies nausea and Denies vomiting Genitourinary: Genitourinary: Denies urinary incontinence Musculoskeletal: Musculoskeletal: Reports no additional musculoskeletal complaints, Denies back pain, Denies arthralgias, Denies joint swelling, Denies neck pain, Denies numbness and Denies tingling Integumentary/Breasts: Skin/Breast: Reports system reviewed and no additional complaints, except as docu and Denies rash Neurologic: Reports system reviewed and no additional complaints, except as documented, Denies Abnormal speech present, Denies dizziness, Denies headache(s), Denies numbness, Denies tingling and Reports weakness PMFSH Past Medical History Attestation statement: The following information was validated with the patient. Source: old records reviewed and nursing notes reviewed Medical History Adult general medical exam Colon cancer screening Colonoscopy refused COPD (chronic obstructive pulmonary disease) Coronary artery disease GERD (gastroesophageal reflux disease) Heart failure with reduced ejection fraction Hypercholesterolemia Hypertension Insomnia Ischemic cardiomyopathy Obesity (BMI 30-39.9) Screening for prostate cancer Umbilical hernia Surgical History Hx of CABG Family History Family History Father No problems noted. Mother No problems noted. Sister No problems noted. Sister No problems noted. Brother No problems noted. Brother Myocardial infarct Liver cancer Social History Social History Household Members: Family Housing: Apartment Do you presently have visiting nurse or other home services: No Alcohol intake: former Patient Tobacco Use Status: Former Tobacco user Tobacco use type: Cigarette Cigarettes Per Day: 10 e-Cigarette/Vaping Use: Never Used Second Hand Smoke Exposure: No Substance Use Type: Marijuana Advance Directives: Yes Advance Directives Information Provided: No Advance Directives on File: No Advance Directives Date on File: 02/16/20 service: No Current occupational status: disabled Cognitive needs: No Hearing needs: No Vision needs: Yes Physical Exam ED Vital Signs: Vital Signs - 24 hr 01/02/23 15:54 01/02/23 16:58 01/02/23 20:25 Temperature 98.4 F 98.5 F 97.8 F Pulse Rate 75 66 71 Respiratory Rate 20 16 12 Blood Pressure 130/60 102/50 L 102/50 L Pulse Oximetry 90 L 93 91 L Oxygen Delivery Method Room Air Room Air Room Air BMI result Body Mass Index 28.6 Const General: cooperative, healthy appearing, comfortable and no acute distress Orientation/consciousness: patient oriented x3 Limitations: no limitations HENMT Head: Yes normal to inspection Ears: hearing grossly normal bilaterally Eyes General: appearance normal, both eyes and all related structures Pupils: Equal, round and reactive pupils present Neck Neck: Yes normal visual inspection, Yes full ROM, Yes no lymphadenopathy and Yes no meningeal signs Chest Chest palpation & inspection: normal inspection of the chest Resp Effort & Inspection: normal respiratory effort Auscultation: clear to auscultation bilaterally Cardio Rate: regular rate Rhythm: regular rhythm Peripheral pulses: Peripheral pulses 2+ throughout GI Inspection: Yes normal to inspection Palpation (GI): Soft to palpation and nontender General: Yes no CVA tenderness Back/Spine/Pelvis Back: no CVA tenderness Thoracic/Lumbar Spine: thoracic and lumbar spine normal to inspection Skin General skin exam: no rashes or lesions noted Neuro Other: Upper extremity 5/5 strength Lower extremity-dorsiflexion and plantar flexion normal, patient with difficulty with straight leg raise bilateral General: patient oriented x3, moves all extremities, no meningeal signs and Unable to assess gait Cranial nerves: Yes CN's II-XII intact bilaterally, Yes Equal, round and reactive pupils present, Yes Bilaterally intact EOM present, Yes Nystagmus not present and Yes Normal facial strength present Cognition (Neuro): normal cognition Speech: No Abnormal speech present Gait exam (Neuro): Unable to assess gait Sensory Exam: Normal double simultaneous stimulation for sensation Extrem General: Yes normal to inspection, Yes no pedal edema and Yes no calf tenderness Course Course Course Narrative: Labs show mild leukocytosis, STANFORD, elevated CPK consistent with rhabdomyolysis, hypokalemia. Troponin is mildly elevated. EKG is pending. No chest pain. Likely elevated secondary to STANFORD or CPK. Patient will receive IV fluids, IV potassium, oral potassium. Anticipate admission Medications Administered Generic Name Dose Route Start Last Admin Trade Name Freq PRN Reason Stop Dose Admin Potassium Chloride/Sodium Chloride 40 meq in 1,000 mls @ 150 mls/hr 01/02/23 19:30 01/02/23 20:05 Kcl 40 Meq In 0.9 % Sodium Chl IVCONT 01/03/23 02:09 150 mls/hr .[id number] DOMINIQUE Administration Discontinued Medications Generic Name Dose Route Start Last Admin Trade Name Freq PRN Reason Stop Dose Admin Sodium Chloride 1,000 mls @ 999 mls/hr 01/02/23 19:43 01/02/23 20:06 Ns IV 01/02/23 20:43 999 mls/hr .Q1H1M STA Administration Potassium Chloride 20 meq 01/02/23 19:30 01/02/23 19:40 Potassium Chloride Packet 20 Meq Packet PO 01/02/23 19:31 20 meq ONCE ONE Administration Medical Decision Making Medical Decision Making [facility] Narrative: 62-year-old male who presents to the ER with complaints of 2 weeks of lower extremity weakness and feeling like he is going to fall with his legs giving out. Also feels that his upper extremities have some mild weakness but no weakness of his trunk and no associated pain, numbness or tingling. On exam patient has some mild weakness of both lower extremities but upper extremities have normal weakness. His neurological exam is otherwise benign. His vitals are stable. Will obtain labs, EKG, UA, orthostatics, COVID screen Differential Diagnosis Differential Diagnoses: The differential diagnosis associated with the presentation includes UTI, pneumonia, malignant, orthostatic hypotension, ACS, electrolyte abnormality, anemia Admission/Observation Consideration of admission/observation: Escalation of care including admission/observation considered See course of care Consult Healthcare Provider Management of the patient was discussed with: Hospitalist I spoke to dr hart who accepted admission Lab Data MDM Lab Attestation statement: I reviewed the patient's lab results. See course of care 01/02/23 18:55 01/02/23 18:55 Labs: Lab Results 01/02/23 01/02/23 01/02/23 Range/Units 18:55 18:55 18:55 WBC 12.0 H (4.8-10.8) X10*3/uL RBC 4.65 (4.60-5.80) X10*6/uL Hgb 15.5 (14.0-18.0) g/dl Hct 44.4 (42.0-52.0) % MCV 95.5 (80.0-98.0) fL MCH 33.3 H (27.0-33.0) pg MCHC 34.9 (31.0-36.0) g/dl RDW 13.2 (11.0-16.0) % Plt Count 174 (160-400) X10*3/uL MPV 10.7 (9.4-12.4) fL Immature Gran % (Auto) 0.3 (0.0-0.4) % Neut % (Auto) 77.0 H (45-73) % Lymph % (Auto) 14.8 L (20-40) % [place] % (Auto) 7.3 (2-11) % Eos % (Auto) 0.3 (0-4) % Baso % (Auto) 0.3 (0-2) % Lymph # (Auto) 1.8 (1.2-4.9) X10*3/uL [place] # (Auto) 0.9 (0.1-1.2) X10*3/uL Eos # (Auto) 0.0 (0.0-0.4) X10*3/uL Baso # (Auto) 0.0 (0.0-0.2) X10*3/uL Abs Immat Gran (auto) 0.03 (0.00-0.03) X10*3/uL Absolute Neuts (auto) 9.2 H (2.0-8.3) x10*3/uL Absolute Nucleated RBC 0.000 (0.0-0.012) X10*3/uL Nucleated RBC % (auto) 0.0 (0.0-0.2) /100WBC PT 11.8 (11.1-13.3) SEC INR 1.0 (0.9-1.1) Sodium 136 (135-145) mmol/L Potassium 2.4 L* D (3.3-5.1) mmol/L Chloride 93 L (96-108) mmol/L Carbon Dioxide 31 H (22-29) mmol/L Anion Gap 14 (12-20) BUN 23 H (9-16) mg/dL Creatinine 1.72 H (0.5-1.4) mg/dL Estim Creat Clear Calc 48.2 Estimated GFR 40 Random Glucose 98 (60-115) mg/dL Lactic Acid (0.5-2.0) mmol/L Calcium 9.3 (8.4-10.2) mg/dL Magnesium 2.0 (1.6-2.6) mg/dL Total Bilirubin 0.8 (0.0-1.0) mg/dL Direct Bilirubin 0.4 (0.0-0.5) mg/dL AST 264 H (5-37) U/L ALT 317 H (0-40) U/L Alkaline Phosphatase 60 (39-117) U/L Total Creatine Kinase 9685 H (38-174) U/L Troponin I High Sens (<3.5-35.0) ng/L Total Protein 5.9 L (6.5-8.0) g/dL Albumin 3.3 L (3.5-5.0) g/dL Urine Color Urine Appearance Urine pH (5.0-9.0) Ur Specific [place] (1.005-1.025) Urine Protein (Neg-Trace) mg/dL Urine Glucose (UA) (Negative) mg/dL Urine Ketones (Negative) mg/dL Urine Blood (Negative) Urine Nitrite (Negative) Ur Leukocyte Esterase (Negative) Urine RBC (0-2) /HPF Urine WBC (0-5) /HPF Ur Squamous Epith Cells (0-2) /HPF Urine Bacteria (None Seen) Hyaline Casts (0-2) /LPF Ethyl Alcohol < 10 mg/dL COVID-19 (CED) (Negative) COVID-19 Clin Com 01/02/23 01/02/23 01/02/23 Range/Units 18:55 18:55 18:55 WBC (4.8-10.8) X10*3/uL RBC (4.60-5.80) X10*6/uL Hgb (14.0-18.0) g/dl Hct (42.0-52.0) % MCV (80.0-98.0) fL MCH (27.0-33.0) pg MCHC (31.0-36.0) g/dl RDW (11.0-16.0) % Plt Count (160-400) X10*3/uL MPV (9.4-12.4) fL Immature Gran % (Auto) (0.0-0.4) % Neut % (Auto) (45-73) % Lymph % (Auto) (20-40) % [place] % (Auto) (2-11) % Eos % (Auto) (0-4) % Baso % (Auto) (0-2) % Lymph # (Auto) (1.2-4.9) X10*3/uL [place] # (Auto) (0.1-1.2) X10*3/uL Eos # (Auto) (0.0-0.4) X10*3/uL Baso # (Auto) (0.0-0.2) X10*3/uL Abs Immat Gran (auto) (0.00-0.03) X10*3/uL Absolute Neuts (auto) (2.0-8.3) x10*3/uL Absolute Nucleated RBC (0.0-0.012) X10*3/uL Nucleated RBC % (auto) (0.0-0.2) /100WBC PT (11.1-13.3) SEC INR (0.9-1.1) Sodium (135-145) mmol/L Potassium (3.3-5.1) mmol/L Chloride (96-108) mmol/L Carbon Dioxide (22-29) mmol/L Anion Gap (12-20) BUN (9-16) mg/dL Creatinine (0.5-1.4) mg/dL Estim Creat Clear Calc Estimated GFR Random Glucose (60-115) mg/dL Lactic Acid 1.1 (0.5-2.0) mmol/L Calcium (8.4-10.2) mg/dL Magnesium (1.6-2.6) mg/dL Total Bilirubin (0.0-1.0) mg/dL Direct Bilirubin (0.0-0.5) mg/dL AST (5-37) U/L ALT (0-40) U/L Alkaline Phosphatase (39-117) U/L Total Creatine Kinase (38-174) U/L Troponin I High Sens 142.7 H* D (<3.5-35.0) ng/L Total Protein (6.5-8.0) g/dL Albumin (3.5-5.0) g/dL Urine Color Urine Appearance Urine pH (5.0-9.0) Ur Specific [place] (1.005-1.025) Urine Protein (Neg-Trace) mg/dL Urine Glucose (UA) (Negative) mg/dL Urine Ketones (Negative) mg/dL Urine Blood (Negative) Urine Nitrite (Negative) Ur Leukocyte Esterase (Negative) Urine RBC (0-2) /HPF Urine WBC (0-5) /HPF Ur Squamous Epith Cells (0-2) /HPF Urine Bacteria (None Seen) Hyaline Casts (0-2) /LPF Ethyl Alcohol mg/dL COVID-19 (CED) Negative (Negative) COVID-19 Clin Com See Note 01/02/23 Range/Units 20:24 WBC (4.8-10.8) X10*3/uL RBC (4.60-5.80) X10*6/uL Hgb (14.0-18.0) g/dl Hct (42.0-52.0) % MCV (80.0-98.0) fL MCH (27.0-33.0) pg MCHC (31.0-36.0) g/dl RDW (11.0-16.0) % Plt Count (160-400) X10*3/uL MPV (9.4-12.4) fL Immature Gran % (Auto) (0.0-0.4) % Neut % (Auto) (45-73) % Lymph % (Auto) (20-40) % [place] % (Auto) (2-11) % Eos % (Auto) (0-4) % Baso % (Auto) (0-2) % Lymph # (Auto) (1.2-4.9) X10*3/uL [place] # (Auto) (0.1-1.2) X10*3/uL Eos # (Auto) (0.0-0.4) X10*3/uL Baso # (Auto) (0.0-0.2) X10*3/uL Abs Immat Gran (auto) (0.00-0.03) X10*3/uL Absolute Neuts (auto) (2.0-8.3) x10*3/uL Absolute Nucleated RBC (0.0-0.012) X10*3/uL Nucleated RBC % (auto) (0.0-0.2) /100WBC PT (11.1-13.3) SEC INR (0.9-1.1) Sodium (135-145) mmol/L Potassium (3.3-5.1) mmol/L Chloride (96-108) mmol/L Carbon Dioxide (22-29) mmol/L Anion Gap (12-20) BUN (9-16) mg/dL Creatinine (0.5-1.4) mg/dL Estim Creat Clear Calc Estimated GFR Random Glucose (60-115) mg/dL Lactic Acid (0.5-2.0) mmol/L Calcium (8.4-10.2) mg/dL Magnesium (1.6-2.6) mg/dL Total Bilirubin (0.0-1.0) mg/dL Direct Bilirubin (0.0-0.5) mg/dL AST (5-37) U/L ALT (0-40) U/L Alkaline Phosphatase (39-117) U/L Total Creatine Kinase (38-174) U/L Troponin I High Sens (<3.5-35.0) ng/L Total Protein (6.5-8.0) g/dL Albumin (3.5-5.0) g/dL Urine Color [place] A Urine Appearance Clear Urine pH 6.5 (5.0-9.0) Ur Specific [place] 1.010 (1.005-1.025) Urine Protein 300 (3+) H (Neg-Trace) mg/dL Urine Glucose (UA) Negative (Negative) mg/dL Urine Ketones Negative (Negative) mg/dL Urine Blood Large (3+) H (Negative) Urine Nitrite Negative (Negative) Ur Leukocyte Esterase Trace H (Negative) Urine RBC 0-2 (0-2) /HPF Urine WBC 0-5 (0-5) /HPF Ur Squamous Epith Cells 0-2 (0-2) /HPF Urine Bacteria None Seen (None Seen) Hyaline Casts 0-2 (0-2) /LPF Ethyl Alcohol mg/dL COVID-19 (CED) (Negative) COVID-19 Clin Com Independent Interpretation I performed an independent interpretation of an: EKG and Plain X-Ray Interpretation: Item family review date EKG which shows normal sinus rhythm with a rate of 71, normal UT, normal QRS, I independently reviewed the x-ray and agree with the radiology report Radiology Impression Discussion of test interpretation with radiology: I have reviewed the radiologist's reading. Radiologist Impression: Launch?Image [place] [id number] XRay Report Signed Patient: Johnny Pittman MR#: [id number] : 1960 Acct:[id number] Age/Sex: 62 / M ADM Date: 01/02/23 Loc: .ED Attending Dr: Ordering Physician: Amita Guzmán NP Date of Service: 01/02/23 Procedure(s): XR chest 2V Accession Number(s): [id number] cc: Amita Guzmán NP~ EXAMINATION: XR CHEST CLINICAL INFORMATION: Weight loss. Weakness. COMPARISON: 10/30/2022 TECHNIQUE: 2 views of the chest were obtained. FINDINGS: The cardiomediastinal silhouette is stable. There is no focal lung consolidation. There is a small layering opacity at the left lung base. The bony structures and soft tissues are unremarkable. XR/XR chest 2V IMPRESSION: 1. Small left pleural effusion was seen previously and is stable to slightly increased in size. ? 2. No other significant abnormality seen. Independent Historian Clinical information obtained from an independent historian. History obtained from or confirmed by: EMS Critical Care Time Critical Care Time Critical Care Time: Yes Total Critical Care Time: 60 Attestation: Correction of electrolyte abnormalities, discussion with hospitalist for admission Discharge Plan Discharge Clinical Impression: Acute hypokalemia, STANFORD (acute kidney injury), Elevated liver enzymes, Elevated CPK Patient Disposition: Admitted As Inpatient
[2023-01-02 19:06] LABS: MANUAL DIFF FLAG NO
[2023-01-02 19:09] LABS: Basophils Percent Auto 0.3 % (0-2); Eosinophils Percent Auto 0.3 % (0-4); Hematocrit 44.4 % (42.0-52.0); Hemoglobin 15.5 g/dl (14.0-18.0); Imm Gran Abs Auto 0.03 X10*3/uL (0.00-0.03); Imm Gran Pct Auto 0.3 % (0.0-0.4); Lymphocytes Absolute Auto 1.8 X10*3/uL (1.2-4.9); Lymphocytes Percent Auto 14.8 % (20-40); Mean Corpuscular HGB Conc 34.9 g/dl (31.0-36.0); Mean Corpuscular Hemoglobin 33.3 pg (27.0-33.0); Mean Corpuscular Volume 95.5 fL (80.0-98.0); Mean Platelet Volume 10.7 fL (9.4-12.4); Monocytes Absolute Auto 0.9 X10*3/uL (0.1-1.2); Monocytes Percent Auto 7.3 % (2-11); Neutrophils Absolute Auto 9.2 x10*3/uL (2.0-8.3); Platelet Count 174 X10*3/uL (160-400); Red Blood Count 4.65 X10*6/uL (4.60-5.80); Red Cell Distribution Width 13.2 % (11.0-16.0)
[2023-01-02 19:16] LABS: Prothrombin Time 11.8 SEC (11.1-13.3)
[2023-01-02 19:21] LABS: Lactic Acid 1.1 mmol/L (0.5-2.0)
[2023-01-02 19:22] LABS: COVID-19 Test Negative (Negative); IDNOW Serial# 6674DD1D
[2023-01-02 19:30] LABS: Alanine Aminotransferase 317 U/L (0-40); Albumin Level 3.3 g/dL (3.5-5.0); Alkaline Phosphatase 60 U/L (39-117); Anion Gap 14 (12-20); Aspartate Amino Transferase 264 U/L (5-37); Bilirubin Direct 0.4 mg/dL (0.0-0.5); Bilirubin Total 0.8 mg/dL (0.0-1.0); Blood Urea Nitrogen 23 mg/dL (9-16); Calcium 9.3 mg/dL (8.4-10.2); Carbon Dioxide 31 mmol/L (22-29); Chloride 93 mmol/L (96-108); Creatinine Clr Calc Pharmacy 48.2; Estimated Glomerular Filt Rate 40; Ethanol < 10 mg/dL; Glucose Random 98 mg/dL (60-115); Potassium 2.4 mmol/L (3.3-5.1); Sodium 136 mmol/L (135-145); Total Protein 5.9 g/dL (6.5-8.0)
[2023-01-02 19:34] LABS: Troponin-I High Sensitivity 142.7 ng/L (<3.5-35.0)
[2023-01-02] MEDS: Potassium Chloride Packet 20 MEQ PACKET PO (19:40)
--- NOTE | 2023-01-02 19:57 | PHA.MEDREC ---
Pharmacy Consult ? Medication Reconciliation Pharmacy has completed the medication reconciliation. Patient confirmed medications. report recently he has been taking the lasix every day. Denise Zuniga, GunnarD
[2023-01-02] MEDS: KCl 40 mEq in 0.9 % Sodium Chl 40 MEQ/1,000 ML IV.SOLN 150 MEQ IVCONT (20:05)
[2023-01-02] MEDS: 0.9 % Sodium Chloride 1,000 ML 999 ML IV (20:06)
[2023-01-02 20:25] VITALS: BP 102/50; PULSE 71; RESP 12; TEMP 36.6; O2SAT 91
--- NOTE | 2023-01-02 20:25 | PC.NURSE ---
Pt ca&ox4, no signs of distress. Pt denies pain. Pt position changed. Meds given per jul. Pt placed on bedside monitor. Plan of care ongoing.
[2023-01-02 20:43] LABS: Appearance Urine Clear; Color Urine Orange; Glucose Urine UA Negative (Negative); Leukocyte Esterase Urine Trace (Negative); Nitrite Urine Negative (Negative); PH 6.5 (5.0-9.0); UMIC TRIGGER UACC YES; Urine Blood Large (3+) (Negative); Urine Ketones Negative (Negative); Urine Protein 300 (3+) mg/dL (Neg-Trace)
[2023-01-02 20:44] LABS: Bacteria Urine None Seen (None Seen); Hyaline Casts Urine 0-2 /LPF (0-2); RBC Urine 0-2 /HPF (0-2); Squamous Epithelial Cell Urine 0-2 /HPF (0-2); WBC Urine 0-5 /HPF (0-5)
--- NOTE | 2023-01-02 22:17 | P.HPHOSP_ITS ---
History of Present Illness Date of Service: 01/02/23 Attending physician on admission: Albino Maravilla Chief Complaint: Lower leg weakness, fall Pt is a 62-year-old male with a PMH significant for hx of PR, CAD s/p CABG 7-8 years ago, HFrEF, HLD, HTN, and CKD who presents to the ED fall and generalized weakness. Patient states that his symptoms began approximately 2 weeks ago when he began noticing some tingling in his legs and increased swelling in his feet and ankles which made it difficult to walk. Reports having decreased activity since that time. Patient denies any pain in his legs but states he was progressively getting weaker. 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 Earlier today patient was bending over to plug something into an outlet on the baseboard when his ?legs gave out on me? and he fell to the floor. Patient states he lacked the strength to pick himself off of the floor. Lives with his brother who was also unable to help him stand up. Was on the floor for approximately 10-15 minutes before EMS arrived. Patient denies lightheadedness, dizziness. No head strike. Patient has been known to drink up to 5 beers daily the states he has not had alcohol for the past 2 weeks. Complains of chronic cough, at baseline. Denies chest pain, pressure, palpitations. In the ED patient was afebrile with slightly soft BP of 102/50, satting at 90% o n RA. Labs were significant for leukocytosis of 12.0, potassium 2.4, chloride 93, BUN 23, creatinine 1.72, AST 264, ALT 317, CPK and 9685, initial troponin 142.7. CXR showed small left pleural effusion seen previously and stable to slightly increased in size, otherwise no significant abnormality seen. 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 Pt was treated with potassium chloride and IVF. Pt will be admitted to the hospital for treatment further evaluation of rhabdomyolysis, STANFORD, and hypokalemia with aggressive IVF repletion. Review of Systems Review of Systems: Generalized weakness, especially in lower legs Fall at home without head strike Tingling in lower legs Increasing lower leg edema Chronic cough, at baseline Chronic SOB, at baseline Denies chest pain/pressure, palpitations No fever, chills, nausea, vomiting, diarrhea, abdominal pain [facility] Medical History Adult general medical exam Colon cancer screening Colonoscopy refused COPD (chronic obstructive pulmonary disease) Coronary artery disease GERD (gastroesophageal reflux disease) Heart failure with reduced ejection fraction Hypercholesterolemia Hypertension Insomnia Ischemic cardiomyopathy Obesity (BMI 30-39.9) Screening for prostate cancer Umbilical hernia Family History Father No problems noted. Mother No problems noted. Sister No problems noted. Sister No problems noted. Brother No problems noted. Brother Myocardial infarct Liver cancer Surgical History Hx of CABG Social History Household Members: Family Housing: Apartment Do you presently have visiting nurse or other home services: No Alcohol intake: former Patient Tobacco Use Status: Former Tobacco user Tobacco use type: Cigarette Cigarettes Per Day: 10 e-Cigarette/Vaping Use: Never Used Second Hand Smoke Exposure: No Substance Use Type: Marijuana Advance Directives: Yes Advance Directives Information Provided: No Advance Directives on File: No Advance Directives Date on File: 02/16/20 service: No Current occupational status: disabled Cognitive needs: No Hearing needs: No Vision needs: Yes Meds Allergies Allergy/AdvReac Type Severity Reaction Status Date / Time ARB-Angiotensin Receptor AdvReac Severe STANFORD Verified 11/13/22 12:00 Antagonist MALVIN Inhibitors AdvReac Intermediate ST[place]ORD Verified 11/13/22 12:00 Active Medications: Current Medications Acetaminophen (Acetaminophen 325 Mg Tablet) 650 mg PO Q6H PRN PRN Reason: Pain, Mild (Pain Scale 1-3) Docusate Sodium (Docusate Sodium 100 Mg Capsule) 100 mg PO DAILY PRN PRN Reason: Constipation Enoxaparin Sodium (Enoxaparin Sodium 40 Mg/0.4 Ml Syringe) 40 mg SUBCUT Q24H [facility]INIQUE Potassium Chloride/Sodium Chloride (Kcl 40 Meq In 0.9 % Sodium Chl) 40 meq in 1,000 mls @ 150 mls/hr IVCONT .Q6H40M DOMINIQUE Stop: 01/03/23 02:09 Last Admin: 01/02/23 20:05 Dose: 150 mls/hr Lactated Ringer's (Lr) 1,000 mls @ 125 mls/hr IVCONT .Q8H [facility] Ondansetron HCl (Ondansetron Hcl 4 Mg/2 Ml Vial) 4 mg IVPUSH Q8H PRN PRN Reason: Nausea and Vomiting Sodium Chloride (0.9 % Sodium Chloride Flush 3 Ml Syringe) 3 ml IVFLUSH QSHIFT [facility] Home Medications Medication Instructions Recorded Confirmed Last Taken Type aspirin 81 mg tablet,delayed 81 mg PO DAILY 09/10/21 01/02/23 01/02/23 History release amlodipine 5 mg tablet 5 mg PO DAILY 03/21/22 01/02/23 01/02/23 History furosemide 20 mg tablet (Lasix) 20 mg PO DAILY 01/02/23 01/02/23 01/02/23 History omeprazole 20 mg capsule,delayed 20 mg PO BID@0630,1630 01/02/23 01/02/23 01/02/23 History release zolpidem 5 mg tablet 5 mg PO BEDTIME 01/02/23 01/02/23 01/01/23 History Physical Exam Vital Signs and Narrative: Vital Signs: Last Vital Signs Temp 97.8 F 01/02/23 20:25 Pulse 71 01/02/23 20:25 Resp 12 01/02/23 20:25 BP 102/50 L 01/02/23 20:25 Pulse Ox 91 L 01/02/23 20:25 O2 Del Method Room Air 01/02/23 20:25 BMI result Body Mass Index 28.6 Constitutional: Alert, in no acute distress. Mental Status: Oriented to person, place and time. Eyes: Pupils are equal, round, and reactive to light. Ear, Nose, and Throat: Oropharynx clear, mucous membranes moist. Ears and nose without deformities. Trachea midline. Respiratory: Diffuse expiratory wheezing. Cardiovascular: S1, S2 regular. No murmurs, rubs, or gallops. Gastrointestinal: Abdomen soft, non-tender, non-distended. Normal bowel sounds. Neurologic: Cranial nerves II-XII are grossly intact bilaterally. No focal neurological deficits. Moves all extremities spontaneously. 2/5 strength of lower legs bilaterally. 4/5 strength of upper extremities bilaterally. Sensation to light touch intact of upper and lower extremities bilaterally. Skin: No rashes or lesions noted. Musculoskeletal: No cyanosis or clubbing. Extremities: 1+ pitting edema in lower extremities bilaterally, primarily in ankles and feet. Psychiatric: Normal mood and affect. Results Labs 01/02/23 18:55 01/02/23 18:55 Labs: Laboratory Results - last 24 hr 01/02/23 01/02/23 01/02/23 18:55 18:55 18:55 MCV 95.5 MCH 33.3 H MCHC 34.9 RDW 13.2 Plt Count 174 MPV 10.7 Immature Gran % (Auto) 0.3 Neut % (Auto) 77.0 H Lymph % (Auto) 14.8 L [place] % (Auto) 7.3 Eos % (Auto) 0.3 Baso % (Auto) 0.3 Lymph # (Auto) 1.8 [place] # (Auto) 0.9 Eos # (Auto) 0.0 Baso # (Auto) 0.0 Abs Immat Gran (auto) 0.03 Absolute Neuts (auto) 9.2 H Absolute Nucleated RBC 0.000 Nucleated RBC % (auto) 0.0 PT 11.8 INR 1.0 Anion Gap 14 Estim Creat Clear Calc 48.2 Estimated GFR 40 Random Glucose 98 Lactic Acid Calcium 9.3 Magnesium 2.0 Total Bilirubin 0.8 Direct Bilirubin 0.4 AST 264 H ALT 317 H Alkaline Phosphatase 60 Total Creatine Kinase 9685 H Total Protein 5.9 L Albumin 3.3 L Urine Color Urine Appearance Urine pH Ur Specific [place] Urine Protein Urine Glucose (UA) Urine Ketones Urine Blood Urine Nitrite Ur Leukocyte Esterase Urine RBC Urine WBC Ur Squamous Epith Cells Urine Bacteria Hyaline Casts Ethyl Alcohol < 10 COVID-19 (CED) COVID-19 Clin Com 01/02/23 01/02/23 01/02/23 18:55 18:55 20:24 MCV MCH MCHC RDW Plt Count MPV Immature Gran % (Auto) Neut % (Auto) Lymph % (Auto) [place] % (Auto) Eos % (Auto) Baso % (Auto) Lymph # (Auto) [place] # (Auto) Eos # (Auto) Baso # (Auto) Abs Immat Gran (auto) Absolute Neuts (auto) Absolute Nucleated RBC Nucleated RBC % (auto) PT INR Anion Gap Estim Creat Clear Calc Estimated GFR Random Glucose Lactic Acid 1.1 Calcium Magnesium Total Bilirubin Direct Bilirubin AST ALT Alkaline Phosphatase Total Creatine Kinase Total Protein Albumin Urine Color [place] A Urine Appearance Clear Urine pH 6.5 Ur Specific [place] 1.010 Urine Protein 300 (3+) H Urine Glucose (UA) Negative Urine Ketones Negative Urine Blood Large (3+) H Urine Nitrite Negative Ur Leukocyte Esterase Trace H Urine RBC 0-2 Urine WBC 0-5 Ur Squamous Epith Cells 0-2 Urine Bacteria None Seen Hyaline Casts 0-2 Ethyl Alcohol COVID-19 (CED) Negative COVID-19 Clin Com See Note Imaging Radiologist's Impressions: Impressions Chest X-Ray 01/02/23 19:16 IMPRESSION: 1. Small left pleural effusion was seen previously and is stable to slightly increased in size. 2. No other significant abnormality seen. Assessment and Plan (1) STANFORD (acute kidney injury): Status: Acute (2) Acute hypokalemia: Status: Acute (3) Rhabdomyolysis: Status: Acute Plan Pt is a 62-year-old male with a PMH significant for hx of PR, CAD s/p CABG 7-8 years ago, HFrEF, HLD, HTN, and CKD who presents to the ED fall and generalized weakness. Patient states that his symptoms began approximately 2 weeks ago when he began noticing some tingling in his legs and increased swelling in his feet and ankles which made it difficult to walk. Reports having decreased activity since that time. Pt will be admitted to the hospital for treatment further ev aluation of rhabdomyolysis, [place], and hypokalemia with aggressive IVF repletion. Rhabdomyolysis CPK 9685 at time of presentation Patient given IVF in the ED Will place on Lactated Ringers Hold statin, ezetimibe Will repeat labs tomorrow ST[place]FORD Patient's creatinine 1.72 Likely secondary to rhabdomyolysis, hypovolemia Patient given IVF in ED, will be placed on lactated Ringer's Follow BMP Hypokalemia Potassium 2.4 at time of presentation Likely multifactorial: Diuretic use, rhabdomyolysis, ST[place]ORD Patient given Potassium in ED Follow BMP, replenish as necessary Generalized weakness Increasing weakness x2 weeks, especially in lower extremities bilaterally Likely secondary from hypokalemia, rhabdomyolysis, [place]ORD Treat as above PT evaluation Abnormal EKG EKG showed normal sinus rhythm with ventricular pre-excitation with possible WPW pattern type a, primarily and V3 Patient currently asymptomatic: Denies chest pain/pressure, palpitations EKG similar to previous Will monitor on telemetry Follow-up outpatient with Cardiology Elevated troponins In for troponin elevated at 142.7 Patient asymptomatic EKG negative for ischemic changes Likely secondary to demand ischemia Will get repeat troponin Transaminitis AST 264, ALT 317 Likely secondary to rhabdomyolysis Hold statin, ezetimibe HRrEF Does not appear to be in acute exacerbation CXR with stable pleural effusion seen previously Hold home furosemide for now HTN Patient's BP soft Hold amlodipine Resume as warranted COPD Patient states chronic cough and SOB at baseline Patient wheezy on examination Will add DuoNebs p.r.n. Continue home inhalers Full Code Attending:?Dr. Maravilla DVT Prophylaxis: Lovenox Pt will require a hospitalization of at least two nights for treatment of?rhabdomyolysis, [place], and hypokalemia with aggressive IVF replenishment and close monitoring.. Time Spent With Patient Time: Total time managing care of this patient today ____ minutes. Quality Stroke Does the patient have a stroke diagnosis?: No VTE Prior VTE?: No VTE Risk Level:: Medical - moderate - high VTE Device Contraindication: Treatment Not Indicated VTE Drug Contraindication: N/A - Med Ordered
[2023-01-02] MEDS: Enoxaparin Sodium 40 MG/0.4 ML SYRINGE SUBCUT (22:31)
[2023-01-02] MEDS: Zolpidem Tartrate 5 MG TABLET PO (22:31)
[2023-01-02] MEDS: Omeprazole 20 MG CAPSULE.DR PO (23:41)
[2023-01-02 23:47] VITALS: BP 102/36; PULSE 73; RESP 13; O2SAT 90
[2023-01-03] VITALS (7 sets, daily range): BP systolic 100–139; BP diastolic 49–59; PULSE 65–87; RESP 12–22; TEMP 36.6–36.7; O2SAT 92–97
--- NOTE | 2023-01-03 | ECG_ITS ---
Test Reason : REEVAL WPW SYMPTOMS Blood Pressure : / mmHG Vent. Rate : 071 BPM Atrial Rate : 071 BPM P-R Int : 168 ms QRS Dur : 154 ms QT Int : 472 ms P-R-T Axes : 074 093 068 degrees QTc Int : 512 ms Sinus rhythm with occasional Premature ventricular complexes Right bundle branch block Abnormal ECG When compared with ECG of 02-JAN-2023 19:50, Premature ventricular complexes are now Present Referred By: Brittany Gill Electronically Signed By:RAE GEORGE
[2023-01-03 00:39] LABS: Troponin-I High Sensitivity 123.1 ng/L (<3.5-35.0)
--- NOTE | 2023-01-03 00:51 | PC.NURSE ---
Lab called with critical trop of 123.1. Provider Lee harris. Plan of care ongoing.
[2023-01-03 01:07] LABS: Amphetamine Screen Urine Not Detected (Not Detect); Barbiturates, Urine Not Detected (Not Detect); Benzodiazepines Screen Urine Not Detected (Not Detect); Cannabinoid Screen Urine Not Detected (Not Detect); Cocaine Screen Urine Not Detected (Not Detect); Fentanyl, urine Not Detected (Not Detect); Opiate Screen Urine POSITIVE (Not Detect); Phencyclidine Screen Urine Not Detected (Not Detect)
[2023-01-03] MEDS: Lactated Ringers 1,000 ML 125 ML IVCONT ×3 (03:20→18:48)
[2023-01-03] MEDS: Omeprazole 20 MG CAPSULE.DR PO ×2 (06:02→18:48)
--- NOTE | 2023-01-03 06:04 | PC.NURSE ---
Pt ca&ox4, no signs of distress. Pt denies pain. Pt medicated per mar. Plan of care ongoing
[2023-01-03 06:29] LABS: Hematocrit 42.7 % (42.0-52.0); Hemoglobin 14.4 g/dl (14.0-18.0); Mean Corpuscular HGB Conc 33.7 g/dl (31.0-36.0); Mean Corpuscular Hemoglobin 33.2 pg (27.0-33.0); Mean Corpuscular Volume 98.4 fL (80.0-98.0); Mean Platelet Volume 11.3 fL (9.4-12.4); Platelet Count 159 X10*3/uL (160-400); Red Blood Count 4.34 X10*6/uL (4.60-5.80); Red Cell Distribution Width 13.1 % (11.0-16.0); White Blood Count 7.3 X10*3/uL (4.8-10.8)
[2023-01-03 07:04] LABS: Anion Gap 10 (12-20); Blood Urea Nitrogen 19 mg/dL (9-16); Calcium 8.9 mg/dL (8.4-10.2); Carbon Dioxide 30 mmol/L (22-29); Chloride 102 mmol/L (96-108); Estimated Glomerular Filt Rate 53; Glucose Random 107 mg/dL (60-115); Potassium 2.8 mmol/L (3.3-5.1); Sodium 139 mmol/L (135-145)
[2023-01-03] MEDS: Potassium Chloride Packet 20 MEQ PACKET 40 MEQ PO ×2 (07:58→10:13)
[2023-01-03] MEDS: Aspirin Enteric Coated 81 MG TABLET.DR PO (08:00)
[2023-01-03] MEDS: Isosorbide Mononitrate 30 MG TAB.ER.24H PO (08:00)
[2023-01-03] MEDS: Metoprolol Succinate ER 50 MG TAB.ER.24H PO (08:00)
--- NOTE | 2023-01-03 08:02 | PC.NURSE ---
pt a&ox3. respirations even and unlabored. pt reports no pain at this time. pt medicated per jul.
--- NOTE | 2023-01-03 10:27 | PC.NURSE ---
pt currently has LR still running, moderate amount of LR remains in the bag, decreasing waste by letting fluids continue until empty.
--- NOTE | 2023-01-03 12:01 | P.PNIM_ITS ---
Subjective Subjective Date of Service: 01/03/23 Interval History: Seen and evaluated this morning Cr and CPK trending down Potassium still low No reported pain or fever Review of Systems Review of Systems: Yes all other systems are reviewed and are negative Physical Exam Vital Signs: Vital Signs: Last Vital Signs Temp 97.9 F 01/03/23 11:58 Pulse 65 01/03/23 11:58 Resp 20 01/03/23 11:58 BP 96/49 L 01/03/23 11:58 Pulse Ox 93 01/03/23 11:58 O2 Del Method Room Air 01/03/23 11:58 BMI result Body Mass Index 28.6 Const: Other: Constitutional : Awake, interactive, not in distress Neck : Normal inspection, Supple Cardiovascular : RRR, no JVP, no lower extremity edema Respiratory : good bilateral air entry, no crackles, wheezes or rhonchi Gastrointestinal: soft, lax, Normal bowel sounds, Non tender Skin : Warm, Dry Neurological : Alert & oriented x3, No focal deficit Objective Data Active Medications Acetaminophen (Acetaminophen 325 Mg Tablet) 650 mg PO Q6H PRN PRN Reason: Pain, Mild (Pain Scale 1-3) Albuterol/Ipratropium (Albuterol/Iprat 2.5/0.5mg 3 Ml Ampul.Neb) 3 ml INHALE RQ4H WHILE AWAKE PRN PRN Reason: Shortness of Breath/Wheezing Aspirin (Aspirin Enteric Coated 81 Mg Tablet.Dr) 81 mg PO DAILY [facility] Last Admin: 01/03/23 08:00 Dose: 81 mg Documented By: MILA Docusate Sodium (Docusate Sodium 100 Mg Capsule) 100 mg PO DAILY PRN PRN Reason: Constipation Enoxaparin Sodium (Enoxaparin Sodium 40 Mg/0.4 Ml Syringe) 40 mg SUBCUT Q24H [facility] Last Admin: 01/02/23 22:31 Dose: 40 mg Documented By: JEANNIE Lactated Ringer's (Lr) 1,000 mls @ 125 mls/hr IVCONT .Q8H [facility] Last Admin: 01/03/23 03:20 Dose: 125 mls/hr Documented By: JEANNIE Isosorbide Mononitrate (Isosorbide Mononitrate 30 Mg Tab.Er.24h) 30 mg PO DAILY [facility]; Protocol Last Admin: 01/03/23 08:00 Dose: 30 mg Documented By: MILA Metoprolol Succinate (Metoprolol Succinate Er 50 Mg Tab.Er.24h) 50 mg PO DAILY [facility]; Protocol Last Admin: 01/03/23 08:00 Dose: 50 mg Documented By: MILA Omeprazole (Omeprazole 20 Mg Capsule.Dr) 20 mg PO BID@0630,1630 [facility] Last Admin: 01/03/23 06:02 Dose: 20 mg Documented By: JEANNIE Ondansetron HCl (Ondansetron Hcl 4 Mg/2 Ml Vial) 4 mg IVPUSH Q8H PRN PRN Reason: Nausea and Vomiting Sodium Chloride (0.9 % Sodium Chloride Flush 3 Ml Syringe) 3 ml IVFLUSH QSHIFT [facility] Last Admin: 01/03/23 07:54 Dose: Not Given Documented By: MILA Non-Admin Reason: IV Running Zolpidem Tartrate (Zolpidem Tartrate 5 Mg Tablet) 5 mg PO BEDTIME [facility] Labs 01/03/23 05:59 01/03/23 05:59 Labs: Laboratory Results - last 24 hr 01/02/23 01/02/23 01/02/23 18:55 18:55 18:55 MCV 95.5 MCH 33.3 H MCHC 34.9 RDW 13.2 Plt Count 174 MPV 10.7 Immature Gran % (Auto) 0.3 Neut % (Auto) 77.0 H Lymph % (Auto) 14.8 L [place] % (Auto) 7.3 Eos % (Auto) 0.3 Baso % (Auto) 0.3 Lymph # (Auto) 1.8 [place] # (Auto) 0.9 Eos # (Auto) 0.0 Baso # (Auto) 0.0 Abs Immat Gran (auto) 0.03 Absolute Neuts (auto) 9.2 H Absolute Nucleated RBC 0.000 Nucleated RBC % (auto) 0.0 PT 11.8 INR 1.0 Anion Gap 14 Estim Creat Clear Calc 48.2 Estimated GFR 40 Random Glucose 98 Lactic Acid Calcium 9.3 Magnesium 2.0 Total Bilirubin 0.8 Direct Bilirubin 0.4 AST 264 H ALT 317 H Alkaline Phosphatase 60 Total Creatine Kinase 9685 H Total Protein 5.9 L Albumin 3.3 L Urine Color Urine Appearance Urine pH Ur Specific [place] Urine Protein Urine Glucose (UA) Urine Ketones Urine Blood Urine Nitrite Ur Leukocyte Esterase Urine RBC Urine WBC Ur Squamous Epith Cells Urine Bacteria Hyaline Casts Urine Opiates Screen Urine Fentanyl Screen Ur Barbiturates Screen Ur Phencyclidine Scrn Ur Amphetamines Screen U Benzodiazepines Scrn Urine Cocaine Screen U Marijuana (THC) Screen Ethyl Alcohol < 10 COVID-19 (CED) COVID-19 Clin Com 01/02/23 01/02/23 01/02/23 18:55 18:55 20:24 MCV MCH MCHC RDW Plt Count MPV Immature Gran % (Auto) Neut % (Auto) Lymph % (Auto) [place] % (Auto) Eos % (Auto) Baso % (Auto) Lymph # (Auto) [place] # (Auto) Eos # (Auto) Baso # (Auto) Abs Immat Gran (auto) Absolute Neuts (auto) Absolute Nucleated RBC Nucleated RBC % (auto) PT INR Anion Gap Estim Creat Clear Calc Estimated GFR Random Glucose Lactic Acid 1.1 Calcium Magnesium Total Bilirubin Direct Bilirubin AST ALT Alkaline Phosphatase Total Creatine Kinase Total Protein Albumin Urine Color [place] A Urine Appearance Clear Urine pH 6.5 Ur Specific [place] 1.010 Urine Protein 300 (3+) H Urine Glucose (UA) Negative Urine Ketones Negative Urine Blood Large (3+) H Urine Nitrite Negative Ur Leukocyte Esterase Trace H Urine RBC 0-2 Urine WBC 0-5 Ur Squamous Epith Cells 0-2 Urine Bacteria None Seen Hyaline Casts 0-2 Urine Opiates Screen Urine Fentanyl Screen Ur Barbiturates Screen Ur Phencyclidine Scrn Ur Amphetamines Screen U Benzodiazepines Scrn Urine Cocaine Screen U Marijuana (THC) Screen Ethyl Alcohol COVID-19 (CED) Negative COVID-19 Clin Com See Note 01/02/23 01/03/23 01/03/23 20:24 05:59 05:59 MCV 98.4 H MCH 33.2 H MCHC 33.7 RDW 13.1 Plt Count 159 L MPV 11.3 Immature Gran % (Auto) Neut % (Auto) Lymph % (Auto) [place] % (Auto) Eos % (Auto) Baso % (Auto) Lymph # (Auto) [place] # (Auto) Eos # (Auto) Baso # (Auto) Abs Immat Gran (auto) Absolute Neuts (auto) Absolute Nucleated RBC 0.000 Nucleated RBC % (auto) 0.0 PT INR Anion Gap 10 L Estim Creat Clear Calc 61.0 Estimated GFR 53 Random Glucose 107 Lactic Acid Calcium 8.9 Magnesium Total Bilirubin Direct Bilirubin AST ALT Alkaline Phosphatase Total Creatine Kinase 8826 H Total Protein Albumin Urine Color Urine Appearance Urine pH Ur Specific [place] Urine Protein Urine Glucose (UA) Urine Ketones Urine Blood Urine Nitrite Ur Leukocyte Esterase Urine RBC Urine WBC Ur Squamous Epith Cells Urine Bacteria Hyaline Casts Urine Opiates Screen POSITIVE H Urine Fentanyl Screen Not Detected Ur Barbiturates Screen Not Detected Ur Phencyclidine Scrn Not Detected Ur Amphetamines Screen Not Detected U Benzodiazepines Scrn Not Detected Urine Cocaine Screen Not Detected U Marijuana (THC) Screen Not Detected Ethyl Alcohol COVID-19 (CED) COVID-19 Clin Com Assessment and Plan (1) Rhabdomyolysis: Status: Acute (2) Acute hypokalemia: Status: Acute (3) STANFORD (acute kidney injury): Status: Acute (4) Elevated liver enzymes: Status: Acute Plan Pt is a 62-year-old male with a PMH significant for hx of [place], CAD s/p CABG 7-8 years ago, HFrEF, HLD, HTN, and CKD who presents to the ED fall and generalized weakness. Patient states that his symptoms began approximately 2 weeks ago when he began noticing some tingling in his legs and increased swelling in his feet and ankles which made it difficult to walk. Reports having decreased activity since that time. Pt will be admitted to the hospital for treatment further evaluation of rhabdomyolysis, [place]FORD, and hypokalemia with aggressive IVF repleti on. Rhabdomyolysis CPK trending down Continue LR Hold statin, ezetimibe follow CPK STANFORD Cr improving secondary to rhabdomyolysis IVF, I\O Follow BMP Hypokalemia Potassium 2.8 this morning replacement given Follow BMP, replenish as necessary Generalized weakness Likely secondary from hypokalemia, rhabdomyolysis, ST[place]FORD Treat underlying causes PT evaluation Abnormal EKG EKG showed normal sinus rhythm with ventricular pre-excitation with possible WPW pattern type a, primarily and V3 EKG similar to previous Patient currently asymptomatic: He reports being aware of this and following with dr Gallardo, has appointment next Follow-up outpatient with Cardiology Elevated troponins In for troponin elevated at 142.7, trended down to 120s Patient asymptomatic, EKG negative for ischemic changes Likely secondary to demand ischemia Transaminitis AST 264, ALT 317 Likely secondary to rhabdomyolysis Hold statin, ezetimibe HRrEF Does not appear to be in acute exacerbation Hold home furosemide for now w STANFORD HTN BP soft Hold amlodipine and Imdur Resume as warranted COPD chronic cough and SOB at baseline Will add DuoNebs p.r.n. Continue home inhalers Full Code DVT Prophylaxis: Lovenox Pt will require a hospitalization overnights for treatment of?rhabdomyolysis, [place] I, and hypokalemia with aggressive IVF replenishment and close monitoring.. Time Spent With Patient Time: Total time managing care of this patient today ____ minutes. Quality Stroke Does the patient have a stroke diagnosis?: No VTE Prior VTE?: No VTE Risk Level:: Medical - moderate - high VTE Device Contraindication: Treatment Not Indicated VTE Drug Contraindication: N/A - Med Ordered
[2023-01-03 13:46] LABS: Blood Urea Nitrogen 18 mg/dL (9-16); Calcium 8.6 mg/dL (8.4-10.2); Creatinine Clr Calc Pharmacy 61.9; Estimated Glomerular Filt Rate 54; Glucose Random 115 mg/dL (60-115)
[2023-01-03 14:01] LABS: Anion Gap 12 (12-20); Carbon Dioxide 28 mmol/L (22-29); Chloride 103 mmol/L (96-108); Potassium 3.5 mmol/L (3.3-5.1); Sodium 139 mmol/L (135-145)
--- NOTE | 2023-01-03 15:03 | PC.NURSE ---
attempted to give report. [place] [facility] [place] take report.
--- NOTE | 2023-01-03 15:46 | PC.NURSE ---
report given to Nora ROUSE.
--- NOTE | 2023-01-03 15:49 | MHC.EDTECH ---
Brought patient a zeus allison.
[2023-01-03] MEDS: Enoxaparin Sodium 30 MG/0.3 ML SYRINGE SUBCUT (21:09)
[2023-01-03] MEDS: Zolpidem Tartrate 5 MG TABLET PO (21:10)
[2023-01-04] VITALS (8 sets, daily range): BP systolic 107–136; BP diastolic 52–65; PULSE 66–97; RESP 18–22; TEMP 36.2–37.3; O2SAT 92–96
[2023-01-04 01:14] LABS: Anion Gap 12 (12-20); Blood Urea Nitrogen 15 mg/dL (9-16); Calcium 9.2 mg/dL (8.4-10.2); Carbon Dioxide 26 mmol/L (22-29); Chloride 107 mmol/L (96-108); Creatinine Clr Calc Pharmacy 70.3; Estimated Glomerular Filt Rate > 60; Glucose Random 104 mg/dL (60-115); Magnesium 1.8 mg/dL (1.6-2.6); Sodium 142 mmol/L (135-145)
[2023-01-04] MEDS: Potassium Chloride Packet 20 MEQ PACKET 40 MEQ PO ×4 (02:41→11:23)
[2023-01-04] MEDS: Lactated Ringers 1,000 ML 125 ML IVCONT (02:43)
[2023-01-04] MEDS: Omeprazole 20 MG CAPSULE.DR PO ×2 (05:33→17:06)
[2023-01-04 06:44] LABS: Anion Gap 9 (12-20); Blood Urea Nitrogen 13 mg/dL (9-16); Calcium 8.9 mg/dL (8.4-10.2); Carbon Dioxide 26 mmol/L (22-29); Chloride 108 mmol/L (96-108); Creatinine Clr Calc Pharmacy 72.8; Estimated Glomerular Filt Rate > 60; Glucose Random 147 mg/dL (60-115); Potassium 3.3 mmol/L (3.3-5.1); Sodium 140 mmol/L (135-145)
[2023-01-04 06:50] LABS: Alanine Aminotransferase 273 U/L (0-40); Albumin Level 2.8 g/dL (3.5-5.0); Alkaline Phosphatase 49 U/L (39-117); Aspartate Amino Transferase 216 U/L (5-37); Bilirubin Direct 0.3 mg/dL (0.0-0.5); Bilirubin Total 0.6 mg/dL (0.0-1.0); Total Protein 5.1 g/dL (6.5-8.0)
[2023-01-04] MEDS: Aspirin Enteric Coated 81 MG TABLET.DR PO (09:11)
[2023-01-04] MEDS: Metoprolol Succinate ER 50 MG TAB.ER.24H PO (09:12)
--- NOTE | 2023-01-04 10:04 | MHC.CM.PN ---
IMM 01/04/23, EMR REVIEWED, PT ADMITTED W/RHABDO AND STANFORD, CM MET W/PT AND PT'S BROTHER AT BEDSIDE, PT REPORTS HE LIVES W/BROTHER, IS INDEP ALTHOUGH DOES HAVE A CANE AND USES PRN, NO HOME SERVICES, DURING THRIVE ASSESSMENT PT REPORTS THINGS ARE GOOD RIGHT NOW HOWEVER WAS INTERESTED IN AND WAS PROVIDED W/[employer] AND PAMPHLET W/QR CODE. PT VERIFIES PCP CHRISTIAN PO AND HCP ON FILE CORRECT.
[2023-01-04] MEDS: Lactated Ringers 1,000 ML 150 ML IVCONT ×3 (11:24→20:20)
[2023-01-04] MEDS: Albuterol/Iprat 2.5/0.5MG 3 ML AMPUL.NEB INHALE ×2 (12:08→18:39)
--- NOTE | 2023-01-04 12:39 | HO.PM.IMPN ---
Subjective Subjective Date of Service: 01/04/23 Interval History: Seen and evaluated this morning Cr and CPK trending down Potassium improved No reported pain or fever Review of Systems Review of Systems: Yes all other systems are reviewed and are negative Physical Exam Vital Signs: Vital Signs: Last Vital Signs Temp 97.2 F 01/04/23 07:34 Pulse 74 01/04/23 12:11 Resp 18 01/04/23 12:11 BP 126/56 L 01/04/23 07:34 Pulse Ox 95 01/04/23 07:34 O2 Del Method Nasal Cannula 01/04/23 07:34 O2 Flow Rate 2.0 01/04/23 07:34 BMI result Body Mass Index 28.6 Const: Other: Constitutional : Awake, interactive, not in distress Neck : Normal inspection, Supple Cardiovascular : RRR, no JVP, no lower extremity edema Respiratory : good bilateral air entry, no crackles, wheezes or rhonchi Gastrointestinal: soft, lax, Normal bowel sounds, Non tender Skin : Warm, Dry Neurological : Alert & oriented x3, No focal deficit Objective Data Active Medications Acetaminophen (Acetaminophen 325 Mg Tablet) 650 mg PO Q6H PRN PRN Reason: Pain, Mild (Pain Scale 1-3) Albuterol/Ipratropium (Albuterol/Iprat 2.5/0.5mg 3 Ml Ampul.Neb) 3 ml INHALE RQ4H WHILE AWAKE PRN PRN Reason: Shortness of Breath/Wheezing Albuterol/Ipratropium (Albuterol/Iprat 2.5/0.5mg 3 Ml Ampul.Neb) 3 ml INHALE RQ4H WHILE AWAKE [facility] Last Admin: 01/04/23 12:08 Dose: 3 ml Documented By: PALOMO Aspirin (Aspirin Enteric Coated 81 Mg Tablet.) 81 mg PO DAILY [facility] Last Admin: 01/04/23 09:11 Dose: 81 mg Documented By: TONY Docusate Sodium (Docusate Sodium 100 Mg Capsule) 100 mg PO DAILY PRN PRN Reason: Constipation Enoxaparin Sodium (Enoxaparin Sodium 30 Mg/0.3 Ml Syringe) 30 mg SUBCUT Q24H [facility] Last Admin: 01/03/23 21:09 Dose: 30 mg Documented By: DOMINGO Lactated Ringer's (Lr) 1,000 mls @ 150 mls/hr IVCONT .Q6H40M [facility] Last Admin: 01/04/23 11:24 Dose: 150 mls/hr Documented By: TONY Isosorbide Mononitrate (Isosorbide Mononitrate 30 Mg Tab.Er.24h) 30 mg PO DAILY [facility]; Protocol Last Admin: 01/03/23 08:00 Dose: 30 mg Documented By: MILA Ketorolac Tromethamine (Ketorolac Tromethamine 0.5% Op 5 Ml Drops) 1 drop EYE-BOTH TID [facility] Last Admin: 01/04/23 09:08 Dose: Not Given Documented By: TONY Non-Admin Reason: Med Not Available Metoprolol Succinate (Metoprolol Succinate Er 50 Mg Tab.Er.24h) 50 mg PO DAILY [facility]; Protocol Last Admin: 01/04/23 09:12 Dose: 50 mg Documented By: TONY Omeprazole (Omeprazole 20 Mg Capsule.Dr) 20 mg PO BID@0630,1630 [facility] Last Admin: 01/04/23 05:33 Dose: 20 mg Documented By: DOMINGO Ondansetron HCl (Ondansetron Hcl 4 Mg/2 Ml Vial) 4 mg IVPUSH Q8H PRN PRN Reason: Nausea and Vomiting Sodium Chloride (0.9 % Sodium Chloride Flush 3 Ml Syringe) 3 ml IVFLUSH QSHIFT [facility] Last Admin: 01/04/23 09:08 Dose: Not Given Documented By: TONY Non-Admin Reason: IV Running Zolpidem Tartrate (Zolpidem Tartrate 5 Mg Tablet) 5 mg PO BEDTIME [facility] Last Admin: 01/03/23 21:10 Dose: 5 mg Documented By: DOMINGO Labs 01/03/23 05:59 01/04/23 05:44 Labs: Laboratory Results - last 24 hr 01/03/23 01/04/23 01/04/23 13:07 00:53 05:44 Anion Gap 12 12 9 L Estim Creat Clear Calc 61.9 70.3 72.8 Estimated GFR 54 > 60 > 60 Random Glucose 115 104 147 H Calcium 8.6 9.2 D 8.9 Magnesium 1.8 Total Bilirubin Direct Bilirubin AST ALT Alkaline Phosphatase Total Creatine Kinase Total Protein Albumin 01/04/23 05:44 Anion Gap Estim Creat Clear Calc Estimated GFR Random Glucose Calcium Magnesium Total Bilirubin 0.6 Direct Bilirubin 0.3 AST 216 H ALT 273 H Alkaline Phosphatase 49 Total Creatine Kinase 6893 H Total Protein 5.1 L Albumin 2.8 L Microbiology Microbiology Results: Microbiology 01/02/23 20:46 Blood Culture - Preliminary Blood - Venous No growth after 24 hours. 01/02/23 20:46 Blood Culture - Preliminary Blood - Venous No growth after 24 hours. Assessment and Plan (1) Rhabdomyolysis: Status: Acute (2) Acute hypokalemia: Status: Acute (3) STANFORD (acute kidney injury): Status: Acute (4) Elevated liver enzymes: Status: Acute Plan Pt is a 62-year-old male with a PMH significant for hx of [place], CAD s/p CABG 7-8 years ago, HFrEF, HLD, HTN, and CKD who presents to the ED fall and generalized weakness. Patient states that his symptoms began approximately 2 weeks ago when he began noticing some tingling in his legs and increased swelling in his feet and ankles which made it difficult to walk. Reports having decreased activity since that time. Pt will be admitted to the hospital for treatment further evaluation of rhabdomyolysis, STANFORD, and hypokalemia with aggressive IVF repletion. 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, primarily and V3 EKG similar to previous Patient currently asymptomatic: He reports being aware of this and following with dr Gallardo, has appointment next Follow-up outpatient with Cardiology Elevated troponins In for troponin elevated at 142.7, trended down to 120s Patient asymptomatic, EKG negative for ischemic changes Likely secondary to demand ischemia Transaminitis secondary to rhabdomyolysis Trending down Hold statin, ezetimibe HRrEF Does not appear to be in acute exacerbation Hold home furosemide for now w STANFORD HTN BP soft Hold amlodipine and Imdur Resume as warranted COPD chronic cough and SOB at baseline Will add DuoNebs p.r.n. Continue home inhalers Full Code DVT Prophylaxis: Lovenox Pt will require a hospitalization overnights for treatment of?rhabdomyolysis, STANFORD, and hypokalemia with aggressive IVF replenishment and close monitoring.. Time Spent With Patient Time: Total time managing care of this patient today ____ minutes. Quality Stroke Does the patient have a stroke diagnosis?: No VTE Prior VTE?: No VTE Risk Level:: Medical - moderate - high VTE Device Contraindication: Treatment Not Indicated VTE Drug Contraindication: N/A - Med Ordered
[2023-01-04] MEDS: Ketorolac Tromethamine 0.5% Op 5 ML DROPS 1 DROP EYE-BOTH ×2 (15:25→20:17)
[2023-01-04] MEDS: Loperamide HCl 2 MG CAPSULE PO (17:45)
[2023-01-04] MEDS: Enoxaparin Sodium 30 MG/0.3 ML SYRINGE SUBCUT (20:17)
[2023-01-04] MEDS: 0.9 % Sodium Chloride Flush 3 ML SYRINGE IVFLUSH (20:17)
[2023-01-04] MEDS: Zolpidem Tartrate 5 MG TABLET PO (20:17)
[2023-01-05] VITALS (9 sets, daily range): BP systolic 115–127; BP diastolic 56–59; PULSE 59–79; RESP 18–22; TEMP 36.2–37.9; O2SAT 93–97
[2023-01-05] MEDS: Lactated Ringers 1,000 ML 150 ML IVCONT ×4 (01:42→22:36)
[2023-01-05] MEDS: Loperamide HCl 2 MG CAPSULE PO ×2 (03:52→08:44)
[2023-01-05] MEDS: Omeprazole 20 MG CAPSULE.DR PO ×2 (06:00→15:51)
[2023-01-05] MEDS: Albuterol/Iprat 2.5/0.5MG 3 ML AMPUL.NEB INHALE ×2 (07:27→19:58)
[2023-01-05 07:44] LABS: Anion Gap 10 (12-20); Blood Urea Nitrogen 10 mg/dL (9-16); Calcium 8.7 mg/dL (8.4-10.2); Carbon Dioxide 22 mmol/L (22-29); Chloride 111 mmol/L (96-108); Creatinine Clr Calc Pharmacy 87.3; Estimated Glomerular Filt Rate > 60; Glucose Random 95 mg/dL (60-115); Potassium 4.2 mmol/L (3.3-5.1); Sodium 139 mmol/L (135-145)
[2023-01-05] MEDS: Ketorolac Tromethamine 0.5% Op 5 ML DROPS 1 DROP EYE-BOTH ×3 (08:43→20:48)
[2023-01-05] MEDS: Metoprolol Succinate ER 50 MG TAB.ER.24H PO (08:43)
[2023-01-05] MEDS: Aspirin Enteric Coated 81 MG TABLET.DR PO (08:44)
--- NOTE | 2023-01-05 10:39 | MHC.CM.PN ---
Per ROUNDS discussion, Patient is not yet medically cleared for dc (aggressive IV replenishment); Patient may benefit from a PT eval to assist with disposition. CM will follow.
--- NOTE | 2023-01-05 12:21 | MHC.CM.PN ---
PT is recommending Acute Rehab;CM will follow.
--- NOTE | 2023-01-05 13:22 | P.PNIM_ITS ---
Subjective Subjective Date of Service: 01/05/23 Interval History: Seen and evaluated this morning Feels better but overall weak Cr and CPK trending down No reported pain or fever Review of Systems Review of Systems: Yes all other systems are reviewed and are negative Physical Exam Vital Signs: Vital Signs: Last Vital Signs Temp 98.0 F 01/05/23 10:55 Pulse 78 01/05/23 10:55 Resp 20 01/05/23 10:55 BP 115/56 L 01/05/23 10:55 Pulse Ox 95 01/05/23 10:55 O2 Del Method Room Air 01/05/23 10:55 O2 Flow Rate 2.0 01/04/23 07:34 BMI result Body Mass Index 28.6 Const: Other: Constitutional : Awake, interactive, not in distress Neck : Normal inspection, Supple Cardiovascular : RRR, no JVP, no lower extremity edema Respiratory : good bilateral air entry, no crackles, wheezes or rhonchi Gastrointestinal: soft, lax, Normal bowel sounds, Non tender Skin : Warm, Dry Neurological : Alert & oriented x3, No focal deficit Objective Data Active Medications Acetaminophen (Acetaminophen 325 Mg Tablet) 650 mg PO Q6H PRN PRN Reason: Pain, Mild (Pain Scale 1-3) Albuterol/Ipratropium (Albuterol/Iprat 2.5/0.5mg 3 Ml Ampul.Neb) 3 ml INHALE RQ4H WHILE AWAKE PRN PRN Reason: Shortness of Breath/Wheezing Albuterol/Ipratropium (Albuterol/Iprat 2.5/0.5mg 3 Ml Ampul.Neb) 3 ml INHALE RQ4H WHILE AWAKE [facility] Last Admin: 01/05/23 11:03 Dose: Not Given Documented By: JULIET Non-Admin Reason: Patient Refused Aspirin (Aspirin Enteric Coated 81 Mg Tablet.) 81 mg PO DAILY [facility] Last Admin: 01/05/23 08:44 Dose: 81 mg Documented By: TONY Docusate Sodium (Docusate Sodium 100 Mg Capsule) 100 mg PO DAILY PRN PRN Reason: Constipation Enoxaparin Sodium (Enoxaparin Sodium 30 Mg/0.3 Ml Syringe) 30 mg SUBCUT Q24H [facility] Last Admin: 01/04/23 20:17 Dose: 30 mg Documented By: MELODY Lactated Ringer's (Lr) 1,000 mls @ 150 mls/hr IVCONT .Q6H40M [facility] Last Admin: 01/05/23 08:44 Dose: 150 mls/hr Documented By: TONY Isosorbide Mononitrate (Isosorbide Mononitrate 30 Mg Tab.Er.24h) 30 mg PO DAILY [facility]; Protocol Last Admin: 01/03/23 08:00 Dose: 30 mg Documented By: MILA Ketorolac Tromethamine (Ketorolac Tromethamine 0.5% Op 5 Ml Drops) 1 drop EYE- BOTH TID [facility] Last Admin: 01/05/23 08:43 Dose: 1 drop Documented By: TONY Loperamide HCl (Loperamide Hcl 2 Mg Capsule) 2 mg PO Q4H PRN PRN Reason: Diarrhea Last Admin: 01/05/23 08:44 Dose: 2 mg Documented By: TONY Metoprolol Succinate (Metoprolol Succinate Er 50 Mg Tab.Er.24h) 50 mg PO DAILY [facility]; Protocol Last Admin: 01/05/23 08:43 Dose: 50 mg Documented By: TONY Omeprazole (Omeprazole 20 Mg Capsule.Dr) 20 mg PO BID@0630,1630 [facility] Last Admin: 01/05/23 06:00 Dose: 20 mg Documented By: MELODY Ondansetron HCl (Ondansetron Hcl 4 Mg/2 Ml Vial) 4 mg IVPUSH Q8H PRN PRN Reason: Nausea and Vomiting Sodium Chloride (0.9 % Sodium Chloride Flush 3 Ml Syringe) 3 ml IVFLUSH QSHIFT [facility] Last Admin: 01/05/23 08:45 Dose: Not Given Documented By: TONY Non-Admin Reason: IV Running Zolpidem Tartrate (Zolpidem Tartrate 5 Mg Tablet) 5 mg PO BEDTIME [facility] Last Admin: 01/04/23 20:17 Dose: 5 mg Documented By: MELODY Labs 01/03/23 05:59 01/05/23 06:30 Labs: Laboratory Results - last 24 hr 01/05/23 06:30 Anion Gap 10 L Estim Creat Clear Calc 87.3 Estimated GFR > 60 Random Glucose 95 Calcium 8.7 Total Creatine Kinase 4481 H Microbiology Microbiology Results: Microbiology 01/02/23 20:46 Blood Culture - Preliminary Blood - Venous No growth after 48 hours. 01/02/23 20:46 Blood Culture - Preliminary Blood - Venous No growth after 48 hours. Assessment and Plan (1) Rhabdomyolysis: Status: Acute (2) Acute hypokalemia: Status: Acute (3) STANFORD (acute kidney injury): Status: Acute (4) Elevated liver enzymes: Status: Acute (5) Physical deconditioning: Status: Inactive Plan Pt is a 62-year-old male with a PMH significant for hx of [place], CAD s/p CABG 7-8 years ago, HFrEF, HLD, HTN, and CKD who presents to the ED fall and generalized weakness. Patient states that his symptoms began approximately 2 weeks ago when he began noticing some tingling in his legs and increased swelling in his feet and ankles which made it difficult to walk. Reports having decreased activity since that time. Pt will be admitted to the hospital for treatment further evaluation of rhabdomyolysis, STANFORD, and hypokalemia with aggressive IVF repletion. Rhabdomyolysis CPK trending down to 4400s Continue LR Hold statin, ezetimibe follow CPK STANFORD resolving secondary to rhabdomyolysis IVF, I\O Follow BMP Hypokalemia resolved Follow BMP, replenish as necessary Generalized weakness Likely secondary from hypokalemia, rhabdomyolysis, STANFORD Treat underlying causes PT evaluation Physical deconditioning Needs acute rehab per PT Abnormal EKG EKG showed normal sinus rhythm with ventricular pre-excitation with possible WPW pattern type a, primarily and V3 EKG similar to previous Patient currently asymptomatic: He reports being aware of this and following with dr Gallardo, has appointment next Follow-up outpatient with Cardiology Elevated troponins In for troponin elevated at 142.7, trended down to 120s Patient asymptomatic, EKG negative for ischemic changes Likely secondary to demand ischemia Transaminitis secondary to rhabdomyolysis Trending down Hold statin, ezetimibe HRrEF Does not appear to be in acute exacerbation Hold home furosemide for now w STANFORD HTN BP soft Hold amlodipine and Imdur Resume as warranted COPD chronic cough and SOB at baseline Will add DuoNebs p.r.n. Continue home inhalers Full Code DVT Prophylaxis: Lovenox Pt will require a hospitalization overnights for treatment of?rhabdomyolysis, STANFORD, and hypokalemia with aggressive IVF replenishment and close monitoring.. Time Spent With Patient Time: Total time managing care of this patient today ____ minutes. Quality Stroke Does the patient have a stroke diagnosis?: No VTE Prior VTE?: No VTE Risk Level:: Medical - moderate - high VTE Device Contraindication: Treatment Not Indicated VTE Drug Contraindication: N/A - Med Ordered
[2023-01-05] MEDS: Enoxaparin Sodium 30 MG/0.3 ML SYRINGE SUBCUT (20:46)
[2023-01-05] MEDS: 0.9 % Sodium Chloride Flush 3 ML SYRINGE IVFLUSH (20:50)
[2023-01-05] MEDS: Zolpidem Tartrate 5 MG TABLET PO (20:52)
[2023-01-06] VITALS: BP 118/56; PULSE 66; RESP 20; TEMP 37; O2SAT 95
[2023-01-06 03:23] VITALS: BP 122/58; PULSE 66; RESP 20; TEMP 36.4; O2SAT 94
[2023-01-06] MEDS: Lactated Ringers 1,000 ML 150 ML IVCONT (04:44)
[2023-01-06] MEDS: Omeprazole 20 MG CAPSULE.DR PO (05:47)
[2023-01-06 06:15] LABS: Anion Gap 10 (12-20); Blood Urea Nitrogen 10 mg/dL (9-16); Carbon Dioxide 25 mmol/L (22-29); Chloride 111 mmol/L (96-108); Creatinine Clr Calc Pharmacy 89.2; Estimated Glomerular Filt Rate > 60; Glucose Random 102 mg/dL (60-115); Potassium 3.6 mmol/L (3.3-5.1); Sodium 142 mmol/L (135-145)
[2023-01-06 07:44] VITALS: BP 123/58; PULSE 74; RESP 18; TEMP 36.9; O2SAT 92
[2023-01-06] MEDS: Ketorolac Tromethamine 0.5% Op 5 ML DROPS 1 DROP EYE-BOTH (08:55)
[2023-01-06] MEDS: Metoprolol Succinate ER 50 MG TAB.ER.24H PO (08:56)
[2023-01-06] MEDS: Aspirin Enteric Coated 81 MG TABLET.DR PO (08:56)
[2023-01-06 09:15] VITALS: PULSE 91; RESP 18; O2SAT 93
[2023-01-06] MEDS: Albuterol/Iprat 2.5/0.5MG 3 ML AMPUL.NEB INHALE (09:15)
[2023-01-06] MEDS: Loperamide HCl 2 MG CAPSULE PO ×2 (09:32→13:50)
[2023-01-06 11:32] VITALS: BP 107/59; PULSE 76; RESP 18; TEMP 36.6; O2SAT 95
--- NOTE | 2023-01-06 12:39 | MHC.CM.PN ---
Per MD, Patient is medically cleared for dc to SNF/STR today(the 3 Acute Rehabs denied). Patient will dc to his agreed upon SNF/[facility] and he will be dc'd there today @ 4PM, via [facility]. Patient is aware of and pleased with the dc plan. CM left a detailed message for Patient's Primary Contact/Sister/Mary @ [phone], informing her of the dc plan.
--- NOTE | 2023-01-06 13:02 | PM.DS ---
DS: Providers Provider Date of Service: 01/06/23 Date of admission: 01/02/23 21:59 Primary care physician: Boy Jorge MD DS: Diagnosis Discharge Diagnosis (1) Rhabdomyolysis: Status: Acute (2) Acute hypokalemia: Status: Acute (3) STANFORD (acute kidney injury): Status: Acute (4) Elevated liver enzymes: Status: Acute (5) Physical deconditioning: Status: Inactive (6) Elevated CPK: Status: Acute DS: Summary Hospital Course Hospital Course: Admission note HPI Pt is a 62-year-old male with a PMH significant for hx of [place], CAD s/p CABG 7-8 years ago, HFrEF, HLD, HTN, and CKD who presents to the ED fall and generalized weakness.? Patient states that his symptoms began approximately 2 weeks ago when he began noticing some tingling in his legs and increased swelling in his feet and ankles which made it difficult to walk.? Reports having decreased activity since that time.? Patient denies any pain in his legs but states he was progressively getting weaker. Claims he just ?could not lease picker my legs?, felt fatigued.? Earlier today patient was bending over to plug something into an outlet on the baseboard when his ?legs gave out on me? and he fell to the floor.? Patient states he lacked the strength to pick himself off of the floor.? Lives with his brother who was also unable to help him stand up.? Was on the floor for approximately 10-15 minutes before EMS arrived. Patient denies lightheadedness, dizziness.? No head strike.? Patient has been known to drink up to 5 beers daily the states he has not had alcohol for the past 2 weeks.? Complains of chronic cough, at baseline. Denies chest pain, pressure, palpitations. In the ED patient was afebrile with slightly soft BP of 102/50, satting at 90% on RA. Labs were significant for leukocytosis of 12.0, potassium 2.4, chloride 93, BUN 23, creatinine 1.72, AST 264, ALT 317, CPK and 9685, initial troponin 142.7. CXR showed small left pleural effusion seen previously and stable to slightly increased in size, otherwise no significant abnormality seen. EKG demonstrated?showed normal sinus rhythm with ventricular pre-excitation with possible WPW pattern type a, primarily in V3.?Pt was treated with potassium chloride and IVF. Pt will be admitted to the hospital for treatment further evaluation of rhabdomyolysis, STANFORD, and hypokalemia with aggressive IVF repletion. Hospital course The patient was admitted to the hospital for evaluation of weakness and fall. Found to have and evidence of acute kidney injury and transaminitis secondary to Rhabdomyolysis with Elevated CPK readings with low potassium. Treated with IV fluids and holding nephrotoxins over the course of hospital stay with good response as creatinine improved back to normal baseline and CPK trended down nicely from 9000 to 2000s. Transaminitis trended down as well. He was evaluated by PT team for Generalized weakness who recommended SNF placement. Noted to have Abnormal EKG EKG showed normal sinus rhythm with ventricular pre-excitation with possible WPW pattern type a, primarily and V3 which is EKG similar to previous as the Patient currently asymptomatic: He reports being aware of this and following with dr Gallardo, has appointment next . Follow-up outpatient with Cardiology. Drink plenty of fluids Continue physical therapy To follow up with cardiology as outpatient for abnormal EKG Time Spent with Patient Time attestation: Total time managing care of this patient today ____ minutes. Discharge coordination time: Greater than 30 minutes Quality: Safe Use of Opioids Does Pt have an Active Cancer Diagnosis on the Problem List?: No Quality: Stroke Does the patient have a stroke diagnosis?: No Physical Exam Vital Signs: Vital Signs: Last Vital Signs Temp 97.8 F 01/06/23 11:32 Pulse 76 01/06/23 11:32 Resp 18 01/06/23 11:32 BP 107/59 L 01/06/23 11:32 Pulse Ox 95 01/06/23 11:32 O2 Del Method Room Air 01/06/23 11:32 O2 Flow Rate 2.0 01/04/23 07:34 BMI result Body Mass Index 28.6 Const: Other: Constitutional : Awake, interactive, not in distress Neck : Normal inspection, Supple Cardiovascular : RRR, no JVP, no lower extremity edema Respiratory : good bilateral air entry, no crackles, wheezes or rhonchi Gastrointestinal: soft, lax, Normal bowel sounds, Non tender Skin : Warm, Dry Neurological : Alert & oriented x3, No focal deficit DS: Data Data Completed and Pending Labs on day of discharge: Laboratory Results - last 24 hr 08/29/23 05:45 Sodium 142 Potassium 3.6 Chloride 111 H Carbon Dioxide 25 Anion Gap 10 L BUN 10 Creatinine 0.93 Estim Creat Clear Calc 89.2 Estimated GFR > 60 Random Glucose 102 Calcium 9.0 Total Creatine Kinase 2531 H Preliminary micro results at discharge 01/02/23 20:46 Blood Culture - Preliminary Blood - Venous No growth after 48 hours. 01/02/23 20:46 Blood Culture - Preliminary Blood - Venous No growth after 48 hours. Imaging Chest x-ray: Radiologist's impression: ITS Impressions Chest X-Ray 01/02/23 19:16 IMPRESSION: 1. Small left pleural effusion was seen previously and is stable to slightly increased in size. 2. No other significant abnormality seen. Discharge Plan Discharge Anticipated Discharge Date/Time: 01/06/23 12:54 Patient Disposition: [facility] Discharge Diagnosis: Acute kidney injury Rhabdomyolysis Referrals: [facility] [Outside] - 1 Week Po,Boy Johnson MD [Primary Care Provider] - 1 Week Discharge Medications: Continued ezetimibe 10 mg tablet 10 mg PO DAILY Qty: 90 3RF isosorbide mononitrate 30 mg tablet extended release 24 hr 30 mg PO DAILY 90 Days Qty: 90 3RF metoprolol succinate 50 mg tablet extended release 24 hr 50 mg PO DAILY 90 Days Qty: 90 2RF rosuvastatin 40 mg tablet 40 mg PO DAILY 90 Days Qty: 90 2RF aspirin 81 mg Tablet,Delayed Release (Dr/Ec) 81 mg PO DAILY omeprazole 20 mg capsule,delayed release(DR/EC) 20 mg PO BID@0630,1630 zolpidem 5 mg tablet 5 mg PO BEDTIME furosemide [Lasix] 20 mg tablet 20 mg PO DAILY amlodipine 5 mg tablet 5 mg PO DAILY Discharge Orders: Discharge Order (Routine); Ordered 01/06/23 Ordered By: Brittany Gill Diet: Advance to usual diet Activity on Discharge: As tolerated Stand Alone Forms: Patient Portal Discharge page Care Plan Goals: Read below Health Concerns: Read below Plan of Treatment: Read below Assessment: You presented with muscle injury and kidney injury responded well to treatment with IV fluids. Evaluated by PT who recommended short term rehab. Drink plenty of fluids Continue physical therapy To follow up with cardiology as outpatient for abnormal EKG
--- NOTE | 2023-01-12 21:43 | P.CDIM_ITS ---
PROVIDER RESPONSE TEXT: To clarify, the appropriate diagnosis supported by the clinical indicators: STANFORD on CKD: CKD2 QUERY TEXT: PHYSICIAN'S DOCUMENTATION REQUEST Date of Query: 01/05/2023 09:25 AM EDT Patient Name: Johnny Pittman Admit Date: 01/03/2023 Dear Brittany Gill, A review of the medical record indicates additional documentation may be needed. Please review below and update the documentation accordingly. Clinical Indicators: PMH: Patient with CKD who presents with fall. Patient will be admitted for rhabdomyolysis, STANFORD and hypokalemia with aggressive IV repletion. CR 1.72 H GFR 40 BUN 23 Please clarify which of the following accurately represents the patient's renal status: STANFORD on CKD please specify the stage of the CKD if known Other (explain)Clinically unable to determine (explain)Thank you, Tamara Gomez, CCS, CDIS Use of terms such as suspected, likely, concern for, or probable (associated with a specific diagnosi s that is being evaluated, monitored, or treated as if it exists) are acceptable and can be coded in the inpatient se tting, when documented at the time of discharge. Please use your independent medical judgment in providing your response. THIS QUERY IS PART OF THE PERMANENT MEDICAL RECORD
== END 2023-01-06 16:46 | disposition skilled nursing facility (03) | DRG 558 ==
LOC: HO.ED 21:16 → HO.EDOVER 22:15 → HO.IMC 01-03 14:48
PROVIDERS: Internal Medicine; Nurse Practitioner Family; Admitting Provider Student in an Organized Health Care Education/Training Program; Emergency Provider Emergency Medicine; PCP Internal Medicine; Visit Provider Student in an Organized Health Care Education/Training Program
DX: M62.82 Rhabdomyolysis (principal); N17.9 Acute kidney failure, unspecified; I13.0 Hypertensive heart and chronic kidney disease with heart failure and stage 1 through stage 4 chronic kidney disease, or unspecified chronic kidney disease; I50.22 Chronic systolic (congestive) heart failure; I24.8 Other forms of acute ischemic heart disease; E87.6 Hypokalemia; I45.6 Pre-excitation syndrome; E86.1 Hypovolemia; I25.10 Atherosclerotic heart disease of native coronary artery without angina pectoris; I25.2 Old myocardial infarction; N18.2 Chronic kidney disease, stage 2 (mild); E78.00 Pure hypercholesterolemia, unspecified; Z20.822 Contact with and (suspected) exposure to COVID-19; Z95.1 Presence of aortocoronary bypass graft; Z87.891 Personal history of nicotine dependence; Z79.82 Long term (current) use of aspirin; Z79.899 Other long term (current) drug therapy
CPT/HCPCS: 36415; 71046; 80048; 80076; 80307; 81001; 82550; 83605; 83735; 84484; 85025; 85027; 85610; 87040; 87635; 93005; 94640; 97110; 97116; 97162; 99285; J1650

== ENCOUNTER → 2023-01-02 21:59 | Outpatient (BNV) | payer MEDICARE, MEDICAID, SELFPAY | PROVIDERS: Admitting Provider Student in an Organized Health Care Education/Training Program; Emergency Provider Emergency Medicine; PCP Internal Medicine; Visit Provider Student in an Organized Health Care Education/Training Program | DX: M62.82 Rhabdomyolysis (principal); E87.6 Hypokalemia; N17.9 Acute kidney failure, unspecified; R74.8 Abnormal levels of other serum enzymes; R53.81 Other malaise | CPT/HCPCS: 99223; 99233; 99239 ==

== ENCOUNTER 2023-01-19 11:42 | Inpatient (IN) | payer MEDICARE, MEDICAID, SELFPAY ==
[2023-01-19] VITALS (13 sets, daily range): BP systolic 127–132; BP diastolic 54–74; PULSE 78–94; RESP 14–20; TEMP 36.7–38.1; O2SAT 88–96; BMI 28.7; BMI 26.5
--- NOTE | ~2023-01-19 | CT_ITS ---
EXAMINATION: CT CHEST WITHOUT CONTRAST CLINICAL INFORMATION: sob. COMPARISON: Prior studies including the chest x-ray from earlier today. TECHNIQUE: Multidetector volumetric imaging was performed from the thoracic inlet through the lung bases without contrast. Sagittal and coronal reformatted images were obtained on the technologist workstation. Soft tissue and lung algorithms evaluated. Thick slab MIP images were performed to increase nodule conspicuity. This CT examination was performed using dose optimization techniques as appropriate, variously including the following: *Automated exposure control *Adjustment of mA and/or kV according to patient size (this includes techniques or standardized protocols for targeted exams where dose is matched to indication/reason for exam; i.e. extremities or head) *Use of iterative reconstruction technique DLP: 318 mGy-cm. FINDINGS: LUNG: Lungs are hyperinflated. Focal posterior pleural based airspace disease with curvilinear reticulations most consistent with the region of rounded atelectasis is appreciated in the posterior aspect of the left lower lobe with the curvilinear linear markings best appreciated on the sagittal reformatted images. No other dense consolidation or suspicious pulmonary nodularity otherwise. Central airways are unremarkable MEDIASTINUM: Patient is status post sternotomy and CABG with extensive vascular calcification in the visualized aorta and coronary vessels CORONARY ARTERY CALCIFICATION: Positive PERICARDIUM/PLEURA: No significant effusion. No pleural mass or thickening. THYROID/VISUALIZED LOWER NECK: Unremarkable. CHEST WALL/AXILLA: Unremarkable. VISUALIZED UPPER ABDOMEN: Unremarkable. BONES: Mild degenerative changes in the spine. No acute bony abnormality CT/CT chest wo IV con IMPRESSION: Chronic appearing and postoperative changes as described above. I do not appreciate any acute superimposed process.
--- NOTE | ~2023-01-19 | XR_ITS ---
EXAMINATION: XR CHEST CLINICAL INFORMATION: Covid infection. Cough. COMPARISON: Previous chest x-ray most recent December 2022 TECHNIQUE: 2 views of the chest were obtained. FINDINGS: The cardiac and mediastinal contours are stable. There are post-CABG changes. There is a scarring or subsegmental atelectasis in the left lower lobe similar to previous exam. The lungs are otherwise clear. There is a small left pleural effusion or pleural thickening similar to previous exam. There is no right pleural effusion. There is no pneumothorax. Bony structures are unremarkable. XR/XR chest 2V IMPRESSION: No evidence for acute disease in the chest. Post-CABG changes and pleural and parenchymal changes at the left lung base similar to previous exam.
--- NOTE | 2023-01-19 11:49 | ED.GENADULT ---
HPI - General Adult General Chief complaint: Fever Stated complaint: +COVID,FEVER Time Seen by Provider: 01/19/23 15:59 Source: patient and EMS Mode of arrival: EMS Limitations: no limitations History of Present Illness HPI narrative: This is a 62-year-old male history CAD status post recent CABG, CKD, COPD, heart failure, alcohol abuse presenting to the emergency department for evaluation of fatigue, malaise, sore throat, myalgias, dyspnea on exertion, patient reports he took a COVID test at home which is positive any wanted to come in for evaluation. He reports he is feeling extremely fatigued with ambulation or any exertion. Patient reports symptoms started yesterday and have been worsening rapidly. Related Data Home Medications Medication Instructions Recorded Confirmed aspirin 81 mg tablet,delayed 81 mg PO DAILY 09/10/21 01/02/23 release amlodipine 5 mg tablet 5 mg PO DAILY 03/21/22 01/02/23 furosemide 20 mg tablet (Lasix) 20 mg PO DAILY 01/02/23 01/02/23 omeprazole 20 mg capsule,delayed 20 mg PO BID@0630,1630 01/02/23 01/02/23 release zolpidem 5 mg tablet 5 mg PO BEDTIME 01/02/23 01/02/23 Previous Rx's Medication Instructions Recorded ezetimibe 10 mg tablet 10 mg PO DAILY #90 tabs 05/21/22 isosorbide mononitrate 30 mg 30 mg PO DAILY 90 days #90 tabs 08/21/22 tablet,extended release 24 hr metoprolol succinate 50 mg 50 mg PO DAILY 90 days #90 tabs 09/29/22 tablet,extended release 24 hr rosuvastatin 40 mg tablet 40 mg PO DAILY 90 days #90 tabs 10/14/22 Allergies Allergy/AdvReac Type Severity Reaction Status Date / Time ARB-Angiotensin Receptor AdvReac Severe ST[place]ORD Verified 11/13/22 12:00 Antagonist MALVIN Inhibitors AdvReac Intermediate [place] Verified 11/13/22 12:00 Review of Systems Review of Systems: Constitutional : No Weight loss, No Fever, No Chills, + Fatigue, + Malaise ENT/Mouth : + sore throat, No Rhinorrhea Eyes: No Eye Pain, No Swelling, No Redness Cardiovascular : No Chest Pain, + SOB, + Dyspnea on Exertion, No Orthopnea, No Edema, No Palpitations Respiratory : No Cough, No Sputum, No Wheezing Gastrointestinal : No Nausea, No Vomiting, No Diarrhea, No Constipation, No abdominal Pain, No Hematochezia, No Melena Genitourinary : No Dysuria, No Urinary Frequency, No Hematuria, Musculoskeletal : No joint pain, No Myalgias, No Joint Swelling Skin : No Skin Lesions, No rash Neuro : No Weakness, No Numbness, No Dizziness, No Headache Psych : No Anxiety/Panic, No Depression All other systems reviewed and are negative Yes all other systems are reviewed and are negative [facility] Past Medical History Attestation statement: The following information was validated with the patient. Source: old records reviewed and nursing notes reviewed Medical History Adult general medical exam Colon cancer screening Colonoscopy refused COPD (chronic obstructive pulmonary disease) Coronary artery disease GERD (gastroesophageal reflux disease) Heart failure with reduced ejection fraction Hypercholesterolemia Hypertension Insomnia Ischemic cardiomyopathy Obesity (BMI 30-39.9) Screening for prostate cancer Umbilical hernia Surgical History Hx of CABG Family History Family History Father No problems noted. Mother No problems noted. Sister No problems noted. Sister No problems noted. Brother No problems noted. Brother Myocardial infarct Liver cancer Social History Social History Household Members: Family Housing: House Do you presently have visiting nurse or other home services: No Alcohol intake: former Patient Tobacco Use Status: Former Tobacco user Tobacco use type: Cigarette Cigarettes Per Day: 10 e-Cigarette/Vaping Use: Never Used Second Hand Smoke Exposure: No Substance Use Type: Marijuana Advance Directives: Yes Advance Directives on File: Yes Advance Directives Date on File: 02/16/20 service: No Current occupational status: disabled Cognitive needs: No Hearing needs: No Vision needs: Yes Physical Exam ED Vital Signs: Vital Signs - 24 hr 01/19/23 12:18 01/19/23 16:15 Temperature 98.3 F Pulse Rate 93 Respiratory Rate 18 Blood Pressure 132/62 Pulse Oximetry 91 L 88 L Oxygen Delivery Method Room Air BMI result Body Mass Index 28.7 vss Appearance: Alert.? Oriented X3.? No acute distress.? Head: Normocephalic, atraumatic, no step-offs or deformities Eyes: Pupils equal, round and reactive to light.? ENT: Pharynx normal.? Neck: Normal inspection.? Neck supple.? CVS: Normal heart rate and rhythm.? Pulses normal.? Respiratory: No respiratory distress.? Breath sounds diminished bilaterally.? Abdomen: Soft and nontender.? Skin: Skin warm and dry.? Normal skin color.? Normal skin turgor.? Extremities: No lower extremity edema.? No calf ttp. 5/5 strength to bilateral upper and lower extremities Neuro: Oriented X 3.? No motor deficit.? No sensory deficit. CN 2-12 intact Course Course Course Narrative: RME - 62 yo male with history of CAD s/p recent CABG, CKD, COPD, HFrEF, hx ETOH use who presents to the ER from home via EMS for evaluation after he tested + for COVID at home. Visiting nurse wanted to get him evaluated because of his medical problems. Given tylenol prior to EMS arrival. VSS for EMS. Pts c/o fever, lightheadedness, dry cough, body aches and not feeling well. Symptoms started yesterday. SpO2 91% in triage, no distress, no SOB. Plan: basic labs, CXR, ambulatory trial Medical Decision Making Medical Decision Making [facility] Narrative: 1610 62-year-old male presents with shortness of breath, URI symptoms x2 days worsening. Physical exam diminished breath sounds bilaterally. Concerns for COVID pneumonia versus viral illness versus pneumonia. Unlikely PE, ACS, pneumothorax. No signs of acute respiratory distress at this time patient was noted to be 91% rest without oxygen, ambulatory O2 went down to 87-88%, on room air patient does not use oxygen at home. Plan at this time labs, imaging. Differential Diagnosis Differential Diagnoses: The differential diagnosis associated with the presentation includes Concerns for COVID pneumonia versus viral illness versus pneumonia. Unlikely PE, ACS, pneumothorax. No signs of acute respiratory distress at this time Admission/Observation Consideration of admission/observation: Escalation of care including admission/observation considered Likely Lab Data [facility] Lab Attestation statement: I reviewed the patient's lab results. 01/19/23 12:28 01/19/23 12:28 Labs: Lab Results 01/19/23 01/19/23 Range/Units 12:25 12:28 WBC 7.1 (4.8-10.8) X10*3/uL RBC 4.02 L (4.60-5.80) X10*6/uL Hgb 13.4 L (14.0-18.0) g/dl Hct 41.1 L (42.0-52.0) % MCV 102.2 H (80.0-98.0) fL MCH 33.3 H (27.0-33.0) pg MCHC 32.6 (31.0-36.0) g/dl RDW 13.5 (11.0-16.0) % Plt Count 166 (160-400) X10*3/uL MPV 10.4 (9.4-12.4) fL Immature Gran % (Auto) 0.3 (0.0-0.4) % Neut % (Auto) 79.3 H (45-73) % Lymph % (Auto) 6.6 L (20-40) % [place] % (Auto) 13.1 H (2-11) % Eos % (Auto) 0.4 (0-4) % Baso % (Auto) 0.3 (0-2) % Lymph # (Auto) 0.5 L (1.2-4.9) X10*3/uL [place] # (Auto) 0.9 (0.1-1.2) X10*3/uL Eos # (Auto) 0.0 (0.0-0.4) X10*3/uL Baso # (Auto) 0.0 (0.0-0.2) X10*3/uL Abs Immat Gran (auto) 0.02 (0.00-0.03) X10*3/uL Absolute Neuts (auto) 5.7 (2.0-8.3) x10*3/uL Absolute Nucleated RBC 0.000 (0.0-0.012) X10*3/uL Nucleated RBC % (auto) 0.0 (0.0-0.2) /100WBC Sodium 136 (135-145) mmol/L Potassium 4.2 (3.3-5.1) mmol/L Chloride 98 (96-108) mmol/L Carbon Dioxide 31 H (22-29) mmol/L Anion Gap 11 L (12-20) BUN 10 (9-16) mg/dL Creatinine 1.06 (0.5-1.4) mg/dL Estim Creat Clear Calc 80.8 Estimated GFR > 60 Random Glucose 106 (60-115) mg/dL Calcium 9.8 D (8.4-10.2) mg/dL Magnesium 2.0 (1.6-2.6) mg/dL Total Bilirubin 0.7 (0.0-1.0) mg/dL Direct Bilirubin 0.4 (0.0-0.5) mg/dL AST 49 H (5-37) U/L ALT 36 (0-40) U/L Alkaline Phosphatase 66 (39-117) U/L Total Protein 6.6 (6.5-8.0) g/dL Albumin 3.8 (3.5-5.0) g/dL COVID-19 (CED) Positive A (Negative) COVID-19 Clin Com See Note Independent Interpretation I performed an independent interpretation of an: Plain X-Ray (XR/XR chest 2V IMPRESSION: No evidence for acute disease in the chest. Post-CABG changes and pleural and parenchymal changes at the left lung base similar to previous exam.) Radiology Impression Discussion of test interpretation with radiology: I have reviewed the radiologist's reading. Critical Care Time Critical Care Time Critical Care Time: Yes Total Critical Care Time: 35 Attestation: I attest to this time spent taking care of the patient, obtaining history, physical, reviewing labs, imaging, speaking to my attending, speaking to specialist. Discharge Plan Discharge Clinical Impression: COVID-19, Hypoxia Patient Disposition: Admitted As Inpatient Prescriptions: No Action ezetimibe 10 mg tablet 10 mg PO DAILY Qty: 90 3RF isosorbide mononitrate 30 mg tablet extended release 24 hr 30 mg PO DAILY 90 Days Qty: 90 3RF metoprolol succinate 50 mg tablet extended release 24 hr 50 mg PO DAILY 90 Days Qty: 90 2RF rosuvastatin 40 mg tablet 40 mg PO DAILY 90 Days Qty: 90 2RF aspirin 81 mg Tablet,Delayed Release (Dr/Ec) 81 mg PO DAILY omeprazole 20 mg capsule,delayed release(DR/EC) 20 mg PO BID@0630,1630 zolpidem 5 mg tablet 5 mg PO BEDTIME furosemide [Lasix] 20 mg tablet 20 mg PO DAILY amlodipine 5 mg tablet 5 mg PO DAILY
[2023-01-19 12:32] LABS: MANUAL DIFF FLAG NO
[2023-01-19 12:36] LABS: Basophils Percent Auto 0.3 % (0-2); Eosinophils Percent Auto 0.4 % (0-4); Hematocrit 41.1 % (42.0-52.0); Hemoglobin 13.4 g/dl (14.0-18.0); Imm Gran Abs Auto 0.02 X10*3/uL (0.00-0.03); Imm Gran Pct Auto 0.3 % (0.0-0.4); Lymphocytes Absolute Auto 0.5 X10*3/uL (1.2-4.9); Lymphocytes Percent Auto 6.6 % (20-40); Mean Corpuscular HGB Conc 32.6 g/dl (31.0-36.0); Mean Corpuscular Hemoglobin 33.3 pg (27.0-33.0); Mean Corpuscular Volume 102.2 fL (80.0-98.0); Mean Platelet Volume 10.4 fL (9.4-12.4); Monocytes Absolute Auto 0.9 X10*3/uL (0.1-1.2); Monocytes Percent Auto 13.1 % (2-11); Neutrophils Absolute Auto 5.7 x10*3/uL (2.0-8.3); Neutrophils Percent Auto 79.3 % (45-73); Platelet Count 166 X10*3/uL (160-400); Red Blood Count 4.02 X10*6/uL (4.60-5.80); Red Cell Distribution Width 13.5 % (11.0-16.0); White Blood Count 7.1 X10*3/uL (4.8-10.8)
[2023-01-19 12:44] LABS: COVID-19 Test Positive (Negative); IDNOW Serial# BCCEAD1C
[2023-01-19 12:48] LABS: Alanine Aminotransferase 36 U/L (0-40); Albumin Level 3.8 g/dL (3.5-5.0); Alkaline Phosphatase 66 U/L (39-117); Anion Gap 11 (12-20); Aspartate Amino Transferase 49 U/L (5-37); Bilirubin Direct 0.4 mg/dL (0.0-0.5); Bilirubin Total 0.7 mg/dL (0.0-1.0); Blood Urea Nitrogen 10 mg/dL (9-16); Calcium 9.8 mg/dL (8.4-10.2); Carbon Dioxide 31 mmol/L (22-29); Chloride 98 mmol/L (96-108); Creatinine Clr Calc Pharmacy 80.8; Estimated Glomerular Filt Rate > 60; Glucose Random 106 mg/dL (60-115); Potassium 4.2 mmol/L (3.3-5.1); Sodium 136 mmol/L (135-145); Total Protein 6.6 g/dL (6.5-8.0)
--- NOTE | 2023-01-19 16:41 | ECG_ITS ---
Test Reason : SOB Blood Pressure : / mmHG Vent. Rate : 090 BPM Atrial Rate : 090 BPM P-R Int : 176 ms QRS Dur : 138 ms QT Int : 412 ms P-R-T Axes : 060 091 081 degrees QTc Int : 504 ms Poor data quality, interpretation may be adversely affected Sinus rhythm with Premature atrial complexes with Aberrant conduction Right bundle branch block Possible Inferior infarct , age undetermined Abnormal ECG When compared with ECG of 03-JAN-2023 08:16, Premature ventricular complexes are no longer Present Aberrant conduction is now Present Referred By: Braxton Holman Electronically Signed By:RAE GEORGE
--- NOTE | 2023-01-19 16:59 | PHA.MEDREC ---
Pharmacy Consult ? Medication Reconciliation Pharmacy has completed the medication reconciliation. Patient has list of medications. Denise Zuniga, GunnarD
[2023-01-19] MEDS: Albuterol Sulfate 90 MCG 8 GM INHALER 4 PUFF INHALE (17:06)
--- NOTE | 2023-01-19 17:08 | P.HPHOSP_ITS ---
History of Present Illness Date of Service: 01/19/23 Chief Complaint: SOB a 62-year-old male with a PMH significant for hx of [place], CAD s/p CABG 7-8 years ago, HFrEF, HLD, HTN, and CKD who presents today with malaise and SOB. The patient was admitted to the hospital for evaluation of weakness and fall. Found to have and evidence of acute kidney injury and transaminitis secondary to Rhabdomyolysis. Went to Rehab center before getting back home last week. He reports 1 day of fatigue, Malaise, sore throat, SOB and dyspnea with minimal efforts. He did covid test and was positibe. denies any fever, chest pain, palpitations, nausea, vomiting, diarrhea, urinary symptoms. In ED found to be hypoxic to 80s on room air. Admitted for Hypoxa 2/2 Covid19 infection. Review of Systems 2 Review of Systems: reporting chills or weakness No chest pain, palpitation having shortness of breath or coughing No abdominal pain, nausea or vomiting No urinary symptoms No any rash or wounds PMFSH Medical History Adult general medical exam Screening for prostate cancer Heart failure with reduced ejection fraction Ischemic cardiomyopathy Colonoscopy refused Colon cancer screening Obesity (BMI 30-39.9) Umbilical hernia COPD (chronic obstructive pulmonary disease) Coronary artery disease GERD (gastroesophageal reflux disease) Hypercholesterolemia Insomnia Hypertension Family History Father No problems noted. Mother No problems noted. Sister No problems noted. Sister No problems noted. Brother No problems noted. Brother Myocardial infarct Liver cancer Surgical History Hx of CABG Social History Household Members: Family Housing: House Do you presently have visiting nurse or other home services: No Alcohol intake: former Patient Tobacco Use Status: Former Tobacco user Tobacco use type: Cigarette Cigarettes Per Day: 10 e-Cigarette/Vaping Use: Never Used Second Hand Smoke Exposure: No Substance Use Type: Marijuana Advance Directives: Yes Advance Directives on File: Yes Advance Directives Date on File: 02/16/20 service: No Current occupational status: disabled Cognitive needs: No Hearing needs: No Vision needs: Yes Meds Allergies Allergy/AdvReac Type Severity Reaction Status Date / Time ARB-Angiotensin Receptor AdvReac Severe ST[place]ORD Verified 11/13/22 12:00 Antagonist MALVIN Inhibitors AdvReac Intermediate [place] Verified 11/13/22 12:00 Home Medications Medication Instructions Recorded Confirmed Last Taken Type aspirin 81 mg tablet,delayed 81 mg PO DAILY 09/10/21 01/19/23 01/19/23 History release amlodipine 5 mg tablet 5 mg PO DAILY 03/21/22 01/19/23 01/19/23 History furosemide 20 mg tablet (Lasix) 20 mg PO DAILY 01/02/23 01/19/23 01/19/23 History omeprazole 20 mg capsule,delayed 20 mg PO BID@0630,1630 01/02/23 01/19/23 01/19/23 History release zolpidem 5 mg tablet 5 mg PO BEDTIME 01/02/23 01/19/23 01/18/23 History Physical Exam 2 Vital Signs and Narrative: Vital Signs: Last Vital Signs Temp 98.3 F 01/19/23 12:18 Pulse 93 01/19/23 12:18 Resp 18 01/19/23 12:18 BP 132/62 01/19/23 12:18 Pulse Ox 88 L 01/19/23 16:15 O2 Del Method Room Air 01/19/23 12:18 BMI result Body Mass Index 28.7 Const: Other: Constitutional : Awake, interactive, not in distress Neck : Normal inspection, Supple Cardiovascular : RRR, no JVP, no lower extremity edema Respiratory : fair bilateral air entry, no crackles, scattered expiratory wheezes Gastrointestinal: soft, lax, Normal bowel sounds, Non tender Skin : Warm, Dry Neurological : Alert & oriented x3, No focal deficit Results Labs 01/19/23 12:28 01/19/23 12:28 Labs: Laboratory Results - last 24 hr 01/19/23 01/19/23 12:25 12:28 MCV 102.2 H MCH 33.3 H MCHC 32.6 RDW 13.5 Plt Count 166 MPV 10.4 Immature Gran % (Auto) 0.3 Neut % (Auto) 79.3 H Lymph % (Auto) 6.6 L [place] % (Auto) 13.1 H Eos % (Auto) 0.4 Baso % (Auto) 0.3 Lymph # (Auto) 0.5 L [place] # (Auto) 0.9 Eos # (Auto) 0.0 Baso # (Auto) 0.0 Abs Immat Gran (auto) 0.02 Absolute Neuts (auto) 5.7 Absolute Nucleated RBC 0.000 Nucleated RBC % (auto) 0.0 Anion Gap 11 L Estim Creat Clear Calc 80.8 Estimated GFR > 60 Random Glucose 106 Calcium 9.8 D Magnesium 2.0 Total Bilirubin 0.7 Direct Bilirubin 0.4 AST 49 H ALT 36 Alkaline Phosphatase 66 Total Protein 6.6 Albumin 3.8 COVID-19 (CED) Positive A COVID-19 Clin Com See Note Imaging Radiologist's Impressions: Impressions Chest X-Ray 01/19/23 12:54 IMPRESSION: No evidence for acute disease in the chest. Post-CABG changes and pleural and parenchymal changes at the left lung base similar to previous exam. Assessment and Plan (1) Hypoxia: Status: Acute (2) COVID-19: Status: Acute Plan a 62-year-old male with a PMH significant for hx of [place], CAD s/p CABG 7-8 years ago, HFrEF, HLD, HTN, and CKD who presents today with malaise and SOB. acute hypoxic failure 2/2 Covid19 infection Isolation Dexamethasone Remdisivir for 3 days Wean O2 down as tolerated Cough med Generalized weakness PT eval HRrEF Does not appear to be in acute exacerbation Hold home furosemide for now w [place]ORD HTN amlodipine and Imdur COPD w exacerbation 2/2 Covid Steroids Nebulizers ATC and PRN Continue home inhalers Full Code DVT Prophylaxis: Lovenox Pt will require 2 overnight hospital stay for treatment of hypoxia 2/2 Covid pending clinical improvement Time Spent With Patient Time: Total time managing care of this patient today ____ minutes. Quality Stroke Does the patient have a stroke diagnosis?: No VTE Prior VTE?: No VTE Risk Level:: Medical - moderate - high VTE Device Contraindication: Treatment Not Indicated VTE Drug Contraindication: N/A - Med Ordered
[2023-01-19 17:20] LABS: C Reactive Protein 0.17 mg/dL (< or = 0.50); Lactate Dehydrogenase 228 U/L (118-273)
[2023-01-19] MEDS: dexAMETHasone sod phosphate 4 MG/ML VIAL 6 MG IVPUSH (17:40)
[2023-01-19] MEDS: Enoxaparin Sodium 40 MG/0.4 ML SYRINGE SUBCUT (17:41)
[2023-01-19] MEDS: Remdesivir 200 MG in 0.9 % Sodium Chloride 210 ML 105 MG IV (18:53)
--- NOTE | 2023-01-19 20:11 | PC.NURSE ---
pt on 2L 02, satting 94%. pt was satting 89% room air. pt reports no pain, just discomfort with stretcher and general weakness. antiviral med infusing per MAR. awaiting bed assignment. call [facility]awa within reach will ctm
[2023-01-19] MEDS: Albuterol/Iprat 2.5/0.5MG 3 ML AMPUL.NEB INHALE (20:34)
[2023-01-19] MEDS: Zolpidem Tartrate 5 MG TABLET PO (23:10)
[2023-01-19] MEDS: 0.9 % Sodium Chloride Flush 3 ML SYRINGE IVFLUSH (23:11)
[2023-01-20] VITALS (10 sets, daily range): BP systolic 120–145; BP diastolic 57–66; PULSE 67–87; RESP 13–20; TEMP 36.2–37; O2SAT 91–100
[2023-01-20 06:34] LABS: Hematocrit 39.6 % (42.0-52.0); Mean Corpuscular HGB Conc 32.8 g/dl (31.0-36.0); Mean Corpuscular Hemoglobin 32.8 pg (27.0-33.0); Mean Platelet Volume 10.9 fL (9.4-12.4); Platelet Count 140 X10*3/uL (160-400); Red Blood Count 3.96 X10*6/uL (4.60-5.80); Red Cell Distribution Width 13.3 % (11.0-16.0); White Blood Count 3.7 X10*3/uL (4.8-10.8)
[2023-01-20 06:47] LABS: Anion Gap 9 (12-20); Blood Urea Nitrogen 13 mg/dL (9-16); Calcium 8.8 mg/dL (8.4-10.2); Carbon Dioxide 30 mmol/L (22-29); Chloride 104 mmol/L (96-108); Creatinine Clr Calc Pharmacy 92.5; Estimated Glomerular Filt Rate > 60; Glucose Random 131 mg/dL (60-115); Sodium 139 mmol/L (135-145)
[2023-01-20] MEDS: Omeprazole 20 MG CAPSULE.DR PO ×2 (06:47→16:30)
[2023-01-20] MEDS: Albuterol/Iprat 2.5/0.5MG 3 ML AMPUL.NEB INHALE ×4 (07:38→19:53)
[2023-01-20] MEDS: dexAMETHasone sod phosphate 4 MG/ML VIAL 6 MG IVPUSH (09:18)
[2023-01-20] MEDS: 0.9 % Sodium Chloride Flush 3 ML SYRINGE IVFLUSH ×2 (09:18→16:30)
[2023-01-20] MEDS: Metoprolol Succinate ER 50 MG TAB.ER.24H PO (09:19)
[2023-01-20] MEDS: Aspirin Enteric Coated 81 MG TABLET.DR PO (09:19)
[2023-01-20] MEDS: Isosorbide Mononitrate 30 MG TAB.ER.24H PO (09:20)
[2023-01-20] MEDS: Atorvastatin Calcium 80 MG TABLET PO (09:20)
[2023-01-20] MEDS: amLODIPine Besylate 5 MG TABLET PO (09:20)
[2023-01-20] MEDS: Ezetimibe 10 MG TABLET PO (09:20)
--- NOTE | 2023-01-20 09:21 | MHC.CM.PN ---
Addendum entered by Ceci Colby 01/20/23 10:13: Pt is active with [facility], return referral placed in [facility]. Original Note: IMM 01/20. Pt admitted with covid-19 infection, hypoxia. Pt lives at home with his brother/HCP. Pt reported he had a [facility]NA agency coming to see him, but does not know which agency, and he reports using a cane. Of note pt was at [facility] a week ago for STR prior to returning home. D/C plan is to return home w/ resumption of [facility] services. Pts brother will transport him home. PCP: Boy Romo vax: x 2
--- NOTE | 2023-01-20 11:58 | HO.PM.IMPN ---
Subjective Subjective Date of Service: 01/20/23 Interval History: improving Physical Exam Vital Signs: Vital Signs: Last Vital Signs Temp 208.0 F H 01/20/23 10:57 Pulse 87 01/20/23 11:10 Resp 13 01/20/23 11:10 BP 129/66 01/20/23 10:57 Pulse Ox 93 01/20/23 10:57 O2 Del Method Room Air 01/20/23 10:57 O2 Flow Rate 2 01/20/23 07:39 BMI result Body Mass Index 26.5 Const: Other: Constitutional : Awake, interactive, not in distress Neck : Normal inspection, Supple Cardiovascular : RRR, no JVP, no lower extremity edema Respiratory : good bilateral air entry, no crackles, wheezes or rhonchi Gastrointestinal: soft, lax, Normal bowel sounds, Non tender Skin : Warm, Dry Neurological : Alert & oriented x3, No focal deficit Objective Data Active Medications Acetaminophen (Acetaminophen 325 Mg Tablet) 650 mg PO Q6H PRN PRN Reason: Pain, Mild (Pain Scale 1-3) Albuterol Sulfate (Albuterol Sulfate (0.083%) 2.5 Mg/3 Ml Vial.Neb) 2.5 mg INHALE Q4H PRN PRN Reason: Shortness of Breath/Wheezing Albuterol/Ipratropium (Albuterol/Iprat 2.5/0.5mg 3 Ml Ampul.Neb) 3 ml INHALE RQ4H WHILE AWAKE [facility] Last Admin: 01/20/23 11:10 Dose: 3 ml Documented By: FLORENTINO Amlodipine Besylate (Amlodipine Besylate 5 Mg Tablet) 5 mg PO DAILY [facility]; Protocol Last Admin: 01/20/23 09:20 Dose: 5 mg Documented By: LUZ MARIA Aspirin (Aspirin Enteric Coated 81 Mg Tablet.) 81 mg PO DAILY [facility] Last Admin: 01/20/23 09:19 Dose: 81 mg Documented By: LUZ MARIA Atorvastatin Calcium (Atorvastatin Calcium 80 Mg Tablet) 80 mg PO DAILY [facility] Last Admin: 01/20/23 09:20 Dose: 80 mg Documented By: LUZ MARIA Benzonatate (Benzonatate 100 Mg Capsule) 100 mg PO TID PRN PRN Reason: Cough Dexamethasone Sodium Phosphate (Dexamethasone Sod Phosphate 4 Mg/Ml Vial) 6 mg IVPUSH DAILY [facility] Last Admin: 01/20/23 09:18 Dose: 6 mg Documented By: LUZ MARIA Ezetimibe (Ezetimibe 10 Mg Tablet) 10 mg PO DAILY [facility] Last Admin: 01/20/23 09:20 Dose: 10 mg Documented By: LUZ MARIA Enoxaparin Sodium (Enoxaparin Sodium 40 Mg/0.4 Ml Syringe) 40 mg SUBCUT Q24H [facility] Last Admin: 01/19/23 17:41 Dose: 40 mg Documented By: LILLEI Remdesivir 100 mg/ Sodium (Chloride) 230 mls @ 115 mls/hr IV Q24H [facility] Stop: 01/21/23 19:59 Isosorbide Mononitrate (Isosorbide Mononitrate 30 Mg Tab.Er.24h) 30 mg PO DAILY [facility]; Protocol Last Admin: 01/20/23 09:20 Dose: 30 mg Documented By: LUZ MARIA Metoprolol Succinate (Metoprolol Succinate Er 50 Mg Tab.Er.24h) 50 mg PO DAILY [facility]; Protocol Last Admin: 01/20/23 09:19 Dose: 50 mg Documented By: LUZ MARIA Omeprazole (Omeprazole 20 Mg Capsule.Dr) 20 mg PO BID@0630,1630 [facility] Last Admin: 01/20/23 06:47 Dose: 20 mg Documented By: GEORGIE Ondansetron HCl (Ondansetron Hcl 4 Mg/2 Ml Vial) 4 mg IVPUSH Q8H PRN PRN Reason: Nausea and Vomiting Sodium Chloride (0.9 % Sodium Chloride Flush 3 Ml Syringe) 3 ml IVFLUSH QSHIFT [facility] Last Admin: 01/20/23 09:18 Dose: 3 ml Documented By: LUZ MARIA Zolpidem Tartrate (Zolpidem Tartrate 5 Mg Tablet) 5 mg PO BEDTIME [facility] Last Admin: 01/19/23 23:10 Dose: 5 mg Documented By: GEORGIE Labs 01/20/23 06:00 01/20/23 06:00 Labs: Laboratory Results - last 24 hr 01/19/23 01/19/23 01/20/23 12:25 12:28 06:00 MCV 102.2 H 100.0 H MCH 33.3 H 32.8 MCHC 32.6 32.8 RDW 13.5 13.3 Plt Count 166 140 L MPV 10.4 10.9 Immature Gran % (Auto) 0.3 Neut % (Auto) 79.3 H Lymph % (Auto) 6.6 L [place] % (Auto) 13.1 H Eos % (Auto) 0.4 Baso % (Auto) 0.3 Lymph # (Auto) 0.5 L [place] # (Auto) 0.9 Eos # (Auto) 0.0 Baso # (Auto) 0.0 Abs Immat Gran (auto) 0.02 Absolute Neuts (auto) 5.7 Absolute Nucleated RBC 0.000 0.000 Nucleated RBC % (auto) 0.0 0.0 Anion Gap 11 L 9 L Estim Creat Clear Calc 80.8 92.5 Estimated GFR > 60 > 60 Random Glucose 106 131 H Calcium 9.8 D 8.8 D Magnesium 2.0 Total Bilirubin 0.7 Direct Bilirubin 0.4 AST 49 H ALT 36 Alkaline Phosphatase 66 Lactate Dehydrogenase 228 C-Reactive Protein 0.17 Total Protein 6.6 Albumin 3.8 COVID-19 (CED) Positive A COVID-19 Clin Com See Note Assessment and Plan (1) Rhabdomyolysis: Status: Resolved (2) Acute hypokalemia: Status: Resolved (3) ST[place]ORD (acute kidney injury): Status: Resolved (4) Elevated liver enzymes: Status: Resolved (5) Physical deconditioning: Status: Inactive Plan 62Ma PMH significant for hx of [place], CAD s/p CABG 7-8 years ago, HFrEF, HLD, HTN, presented with fall, weakness, found to have covid Rhabdomyolysis resolved STANFORD resolved Hypokalemia resolved acute hpyoxic respriatory failure due to covid complicated by copd with acute decompensation on decadron, remdisivir, duonebs Physical deconditioning Needs acute rehab per PT Abnormal EKG EKG showed normal sinus rhythm with ventricular pre-excitation with 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 Quality Stroke Does the patient have a stroke diagnosis?: No VTE Prior VTE?: No VTE Risk Level:: Medical - moderate - high VTE Device Contraindication: Treatment Not Indicated VTE Drug Contraindication: N/A - Med Ordered
[2023-01-20] MEDS: Enoxaparin Sodium 40 MG/0.4 ML SYRINGE SUBCUT (17:48)
[2023-01-20] MEDS: Remdesivir 100 MG in 0.9 % Sodium Chloride 230 ML 115 MG IV (17:49)
[2023-01-20] MEDS: Zolpidem Tartrate 5 MG TABLET PO (22:58)
[2023-01-21 03:46] VITALS: BP 122/65; PULSE 93; RESP 20; TEMP 36.7; O2SAT 94
[2023-01-21] MEDS: Omeprazole 20 MG CAPSULE.DR PO (06:38)
[2023-01-21 07:36] VITALS: BP 130/63; PULSE 84; RESP 20; TEMP 36.3; O2SAT 92
[2023-01-21 07:51] LABS: Hematocrit 39.1 % (42.0-52.0); Hemoglobin 12.7 g/dl (14.0-18.0); Mean Corpuscular HGB Conc 32.5 g/dl (31.0-36.0); Mean Corpuscular Hemoglobin 32.5 pg (27.0-33.0); Mean Platelet Volume 11.2 fL (9.4-12.4); Platelet Count 136 X10*3/uL (160-400); Red Blood Count 3.91 X10*6/uL (4.60-5.80); Red Cell Distribution Width 13.4 % (11.0-16.0); White Blood Count 4.8 X10*3/uL (4.8-10.8)
[2023-01-21 08:04] LABS: Anion Gap 10 (12-20); Blood Urea Nitrogen 16 mg/dL (9-16); C Reactive Protein 0.14 mg/dL (< or = 0.50); Calcium 8.7 mg/dL (8.4-10.2); Carbon Dioxide 31 mmol/L (22-29); Chloride 99 mmol/L (96-108); Estimated Glomerular Filt Rate > 60; Glucose Fasting 128 mg/dL (60-99); Potassium 3.7 mmol/L (3.3-5.1); Sodium 136 mmol/L (135-145)
[2023-01-21] MEDS: Albuterol/Iprat 2.5/0.5MG 3 ML AMPUL.NEB INHALE (08:12)
[2023-01-21 08:13] VITALS: PULSE 84; RESP 16; O2SAT 93
--- NOTE | 2023-01-21 09:50 | PM.DS ---
DS: Providers Provider Date of Service: 01/21/23 Date of admission: 01/19/23 17:03 Primary care physician: Boy Jorge MD DS: Diagnosis Discharge Diagnosis (1) Rhabdomyolysis: Status: Resolved (2) Acute hypokalemia: Status: Resolved (3) [place] (acute kidney injury): Status: Resolved (4) Elevated liver enzymes: Status: Resolved (5) Physical deconditioning: Status: Inactive DS: Summary Hospital Course Hospital Course: from initial hpi: 62-year-old male with a PMH significant for hx of [place], CAD s/p CABG 7-8 years ago, HFrEF, HLD, HTN, and CKD who presents today with malaise and SOB. The patient was admitted to the hospital for evaluation of weakness and fall. Found to have and evidence of acute kidney injury and transaminitis secondary to Rhabdomyolysis. Went to Rehab center before getting back home last week. He reports 1 day of fatigue, Malaise, sore throat, SOB and dyspnea with minimal efforts. He did covid test and was positibe. denies any fever, chest pain, palpitations, nausea, vomiting, diarrhea, urinary symptoms. In ED found to be hypoxic to 80s on room air. Admitted for Hypoxa 2/2 Covid19 infection. hospital course: Patient was admitted for acute hypoxic respiratory failure secondary to COVID infection. He was treated with dexamethasone remdesivir. He was weaned off oxygen and feeling much better at time of discharge. Patient was not interested in short-term rehab. For chronic systolic CHF he remained stable. For hypertension was continue on amlodipine Imdur. For COPD with acute decompensation due to COVID he was treated with steroids. Patient will be discharged on 5 more days of prednisone. Time Spent with Patient Time attestation: Total time managing care of this patient today ____ minutes. Discharge coordination time: Greater than 30 minutes Quality: Safe Use of Opioids Does Pt have an Active Cancer Diagnosis on the Problem List?: No Quality: Stroke Does the patient have a stroke diagnosis?: No Physical Exam Vital Signs: Vital Signs: Last Vital Signs Temp 97.3 F 01/21/23 07:36 Pulse 84 01/21/23 08:13 Resp 16 01/21/23 08:13 BP 130/63 01/21/23 07:36 Pulse Ox 92 01/21/23 07:36 O2 Del Method Room Air 01/21/23 07:36 O2 Flow Rate 2 01/20/23 07:39 BMI result Body Mass Index 26.5 General: AO X 3, no acute distress Resp: CTA bilateral, no accessory muscles used CVS: S1,S2,RRR GI: soft, non tender, non distended Neuro: motor grossly intact, alert Psych: appropriate affect, appropriate insight DS: Data Data Completed and Pending Labs on day of discharge: Laboratory Results - last 24 hr 01/21/23 06:20 WBC 4.8 RBC 3.91 L Hgb 12.7 L Hct 39.1 L MCV 100.0 H MCH 32.5 MCHC 32.5 RDW 13.4 Plt Count 136 L MPV 11.2 Absolute Nucleated RBC 0.000 Nucleated RBC % (auto) 0.0 Sodium 136 Potassium 3.7 Chloride 99 Carbon Dioxide 31 H Anion Gap 10 L BUN 16 Creatinine 0.97 Estim Creat Clear Calc 83.0 Estimated GFR > 60 Fasting Glucose 128 H Calcium 8.7 C-Reactive Protein 0.14 Discharge Plan Discharge Anticipated Discharge Date/Time: 01/21/23 09:47 Patient Disposition: Home, Self-Care Discharge Diagnosis: covid Referrals: Po,Boy Johnson MD [Primary Care Provider] - 1 Week Discharge Medications: New prednisone 20 mg tablet 40 mg PO DAILY Qty: 10 0RF Continued ezetimibe 10 mg tablet 10 mg PO DAILY Qty: 90 3RF isosorbide mononitrate 30 mg tablet extended release 24 hr 30 mg PO DAILY 90 Days Qty: 90 3RF metoprolol succinate 50 mg tablet extended release 24 hr 50 mg PO DAILY 90 Days Qty: 90 2RF rosuvastatin 40 mg tablet 40 mg PO DAILY 90 Days Qty: 90 2RF aspirin 81 mg Tablet,Delayed Release (Dr/Ec) 81 mg PO DAILY omeprazole 20 mg capsule,delayed release(DR/EC) 20 mg PO BID@0630,1630 zolpidem 5 mg tablet 5 mg PO BEDTIME furosemide [Lasix] 20 mg tablet 20 mg PO DAILY amlodipine 5 mg tablet 5 mg PO DAILY Discharge Orders: Discharge Order (Routine); Ordered 01/21/23 Ordered By: Francis Garza Diet: Advance to usual diet Activity on Discharge: As tolerated Stand Alone Forms: Patient Portal Discharge page Care Plan Goals: recovery Health Concerns: covid Plan of Treatment: 5 more days prednisone, isolation per cdc guidelines Assessment: see above
[2023-01-21] MEDS: Ezetimibe 10 MG TABLET PO (09:54)
[2023-01-21] MEDS: dexAMETHasone sod phosphate 4 MG/ML VIAL 6 MG IVPUSH (09:54)
[2023-01-21] MEDS: Aspirin Enteric Coated 81 MG TABLET.DR PO (09:54)
[2023-01-21] MEDS: Atorvastatin Calcium 80 MG TABLET PO (09:54)
[2023-01-21] MEDS: Metoprolol Succinate ER 50 MG TAB.ER.24H PO (09:54)
[2023-01-21] MEDS: amLODIPine Besylate 5 MG TABLET PO (09:54)
[2023-01-21] MEDS: Isosorbide Mononitrate 30 MG TAB.ER.24H PO (09:54)
[2023-01-21] MEDS: 0.9 % Sodium Chloride Flush 3 ML SYRINGE IVFLUSH (09:55)
--- NOTE | 2023-01-21 10:46 | MHC.CM.PN ---
Pt is medically cleared for D/C home with resumption of [facility]. Pts brother will transport him home.
== END 2023-01-21 11:45 | disposition home health service (06) | DRG 177 ==
LOC: HO.ED 16:42 → HO.EDOVER 17:16 → HO.IMC 20:49
PROVIDERS: Physician Assistant; Admitting Provider Student in an Organized Health Care Education/Training Program; Emergency Provider Emergency Medicine; PCP Internal Medicine; Visit Provider Internal Medicine
DX: U07.1 COVID-19 (principal); J96.01 Acute respiratory failure with hypoxia; I13.0 Hypertensive heart and chronic kidney disease with heart failure and stage 1 through stage 4 chronic kidney disease, or unspecified chronic kidney disease; I50.22 Chronic systolic (congestive) heart failure; J44.1 Chronic obstructive pulmonary disease with (acute) exacerbation; N17.9 Acute kidney failure, unspecified; M62.82 Rhabdomyolysis; I45.6 Pre-excitation syndrome; E87.6 Hypokalemia; I25.10 Atherosclerotic heart disease of native coronary artery without angina pectoris; N18.9 Chronic kidney disease, unspecified; I25.2 Old myocardial infarction; Z95.1 Presence of aortocoronary bypass graft; Z87.891 Personal history of nicotine dependence; Z79.82 Long term (current) use of aspirin; Z79.899 Other long term (current) drug therapy
CPT/HCPCS: 36415; 71046; 71250; 80048; 80076; 83615; 83735; 85025; 85027; 86140; 87635; 93005; 94640; 99285; J0248; J1100; J1650

== ENCOUNTER → 2023-01-19 17:03 | Outpatient (BNV) | payer MEDICARE, MEDICAID, SELFPAY | PROVIDERS: Admitting Provider Student in an Organized Health Care Education/Training Program; Emergency Provider Emergency Medicine; Visit Provider Internal Medicine | DX: M62.82 Rhabdomyolysis (principal); E87.6 Hypokalemia; N17.9 Acute kidney failure, unspecified; R74.8 Abnormal levels of other serum enzymes; R53.81 Other malaise | CPT/HCPCS: 99223; 99233; 99239 ==

== ENCOUNTER 2023-01-26 11:12 | Outpatient (AMB) | payer MEDICARE, MEDICAID, SELFPAY ==
[2023-01-26 11:15] VITALS: BP 178/70; PULSE 64; O2SAT 93; BMI 26.2
--- NOTE | 2023-01-26 11:15 | A.OFFPC_ITS ---
Vital Signs 01/26/23 11:15 01/26/23 12:50 Height 5 ft 11 in Weight 188 lb BMI 26.2 BP 178/70 H 160/70 H Blood Pressure Location Lt brachial Lt brachial Position Sitting Sitting Pulse 64 Pulse Source Pulse Oximeter Pulse Oximetry (%) 93 Oxygen Delivery Method Room Air Intake Visit Reasons: [facility] 01/07-01/16 muscle breakdown in legs Manager Drug Safety: Not Required per policy Accompanied by: Self / Same As Patient Allergies ARB-Angiotensin Receptor Antagonist Adverse Reaction (Severe, Verified 01/26/23 11:16) [place] MALVIN Inhibitors Adverse Reaction (Intermediate, Verified 01/26/23 11:16) [place] Tobacco use date assessed: 11/13/22 Dental Screening Dental Screen Date: 01/26/23 Did you have a dental visit in the last 12 months?: No Did you have a dental problem in the last 6 months where you did not have access to dental care?: No Was dental information given to patient?: Patient has dentist HPI HPI Comments History of Present Illness Details 62-year-old female past history signific ant for hypercholesteremia, impaired glucose, anemia, heart failure, CAD, CKD, GERD, hypertension. Patient of presents today for hospital discharge follow-up. Review the notes patient was admitted multiple times to [facility] most recent admission due to hypoxemia and positive COVID test. Discharge summary : Hospital Course from initial hpi: 62-year-old male with a PMH significant for hx of [place], CAD s/p CABG 7-8 years ago, HFrEF, HLD, HTN, and CKD who presents today with malaise and SOB. The patient was admitted to the hospital for evaluation of weakness and fall. Found to have and evidence of acute kidney injury and transaminitis secondary to Rhabdomyolysis. Went to Rehab center before getting back home last week. He reports 1 day of fatigue, Malaise, sore throat, SOB and dyspnea with minimal efforts. He did covid test and was positibe. denies any fever, chest pain, palpitations, nausea, vomiting, diarrhea, urinary symptoms. In ED found to be hypoxic to 80s on room air. Admitted for Hypoxa 2/2 Covid19 infection. hospital course: Patient was admitted for acute hypoxic respiratory failure secondary to COVID infection. He was treated with dexamethasone remdesivir. He was weaned off oxygen and feeling much better at time of discharge. Patient was not interested in short-term rehab. For chronic systolic CHF he remained stable. For hypertension was continue on amlodipine Imdur. For COPD with acute decompensation due to COVID he was treated with steroids. Patient will be discharged on 5 more days of prednisone. Patient reports breathing good and malaise and fatigue and resolved. Patient denies sob or trouble breathing. Does still have some wheezing at times for which he reports uses albuterol with relief if he needs it. [facility] Medical History Adult general medical exam Screening for prostate cancer Heart failure with reduced ejection fraction Ischemic cardiomyopathy Colonoscopy refused Colon cancer screening Obesity (BMI 30-39.9) Umbilical hernia COPD (chronic obstructive pulmonary disease) Coronary artery disease GERD (gastroesophageal reflux disease) Hypercholesterolemia Insomnia Hypertension Surgical History Hx of CABG Family History Father No problems noted. Mother No problems noted. Sister No problems noted. Sister No problems noted. Brother No problems noted. Brother Myocardial infarct Liver cancer Social History Household Members: Other Household Members Other:: brother Housing: House Do you presently have visiting nurse or other home services: Yes Alcohol intake: former Patient Tobacco Use Status: Former Tobacco user Tobacco use type: Cigarette Cigarettes Per Day: 10 e-Cigarette/Vaping Use: Never Used Second Hand Smoke Exposure: No Substance Use Type: Marijuana Advance Directives Date on File: 02/16/20 service: No Current occupational status: disabled Cognitive needs: No Hearing needs: No Vision needs: Yes Questionnaire PHQ-9 Over the last 2 weeks, how often have you been bothered by any of the following problems? 1. Little interest or pleasure in doing things: not at all 2. Feeling down, depressed, or hopeless: not at all 3. Trouble falling or staying asleep, or sleeping too much: not at all 4. Feeling tired or having little energy: not at all 5. Poor appetite or overeating: not at all 6. Feeling bad about yourself - or that you are a failure or have let yourself or your family down: not at all 7. Trouble concentrating on things, such as reading the newspaper or watching television: not at all 8. Moving or speaking so slowly that other people could have noticed. Or the opposite - being so fidgety or restless that you have been moving around a lot more than usual: not at all 9. Thoughts that you would be better off or of hurting yourself in some way: not at all Total score: 0 Depression Screening Interpretation: Negative Source: Developed by Drs. Johnny Araiza, Tamiko Mcdonald, Negrito Maurer and colleagues, with an educational franklin from [employer]. Thrive Questionnaire Date Thrive assessed: 01/20/23 AUDIT C Alcohol Use Questionnaire (AUDIT-C) 1. How often do you have a drink containing alcohol?: 4 or more times a week 2. How many drinks containing alcohol do you have on a typical day when you are drinking?: 3 or 4 3. How often do you have six or more drinks on one occasion?: Less than monthly Total Score: 6 Score Reviewed/Action Taken: Yes JUAN-7 AMB Questionnaire JUAN-7 Date JUAN - 7 assessed: 07/03/22 Source: Developed by Drs. Johnny Araiza, Tamiko Mcdonald, Negrito Maurer and colleagues, with an educational franklin from [employer]. Review of Systems Const Denies chills, Denies fatigue, Denies fever(s) and Denies poor appetite Eyes Denies no additional complaints ENT Reports Normal hearing present Card Denies chest pain, Denies syncope, Denies rapid heart rate and Denies dyspnea Resp Denies cough and Denies dyspnea GI Denies change in stool character, Denies constipation, Denies diarrhea, Denies nausea and Denies vomiting Denies dysuria, Denies urinary frequency and Denies urinary urgency Neuro Reports Normal hearing present, Denies confusion and Denies syncope Psych Denies confusion Endo Denies fatigue Physical exam (Primary Care) Vital Signs: Last Vital Signs Pulse 64 01/26/23 11:15 BP 178/70 H 01/26/23 11:15 Pulse Ox 93 01/26/23 11:15 Oxygen Delivery Method Room Air 01/26/23 11:15 BMI result Body Mass Index 26.2 Tobacco/Smoking Status: Tobacco use Status Tobacco use date assessed 11/13/22 01/26/23 11:21 Patient Tobacco Use Status Former Tobacco user 01/26/23 11:21 Tobacco use type Cigarette 01/26/23 11:21 e-Cigarette/Vaping Use Never Used 01/26/23 11:21 PHQ-9: PHQ-9 Score PHQ-9: Total score 0 01/26/23 11:32 Depression Screening Interpretation: Negative Thrive Assessment: Date of Thrive Assessment Date Thrive assessed 01/20/23 01/26/23 11:21 Const General: No confusion Orientation/consciousness: No confusion HENMT Head: Yes normocephalic and Yes atraumatic Eyes Conjunctivae: conjunctivae normal Chest Chest palpation & inspection: normal inspection of the chest Resp Effort & Inspection: normal respiratory effort Auscultation: clear to auscultation bilaterally, no crackles, no rhonchi and wheezes scattered wheezes Cardio Rate: regular rate Rhythm: regular rhythm Heart sounds: S1 normal heart sound present and S2 normal heart sound present GI Inspection: Yes normal to inspection Neuro General: No confusion Cranial nerves: Yes Normal hearing present Extrem General: No edema Assessment and Plan Assessment & Plan (1) COVID-19: Code(s): U07.1 - COVID-19 Plan: Patient advised to continue to wear a mask until day 10 after testing postive. (2) Hypoxia: Code(s): R09.02 - Hypoxemia Plan: 02 sat 93%, can use albuterol prn for sob and wheezing. (3) Heart failure with reduced ejection fraction: Code(s): I50.20 - Unspecified systolic (congestive) heart failure Plan: Continue on lasix. Continue to follow with cardiology. (4) Coronary artery disease: Comment: [place], circumflex stenting in 2009, unstable angina, LAD stenting in 2011. Persistent significant angina with abnormal stress test leading to 3 vessel coronary artery bypass grafting in 2012 echocardiogram September 2021Normal left ventricular cavity size. There is mildly increased left ventricular wall thickness. The left ventricular systolic function is mildly decreased. The visually estimated ejection fraction is between 40-45%. - E/E prime ratio is between 8 and 15 consistent with indeterminate filling pressures. - The basal inferior and mid inferior segments are akinetic. - Normal right ventricular cavity size and systolic function. Code(s): I25.10 - Atherosclerotic heart disease of [place] coronary artery without angina pectoris Qualifiers: Coronary Disease-Associated Artery/Lesion type: [place] artery [place] vs. transplanted heart: [place] heart Associated angina: without angina Qualified Code(s): I25.10 - Atherosclerotic heart disease of [place] coronary artery without angina pectoris Plan: Continue on asa, statin, imdur and metoprolol. RX sent to refill metoprolol. (5) Insomnia: Code(s): G47.00 - Insomnia, unspecified Plan: Patient requesting refill on ambien, RX sent. Plan Follow up in 3 months Orders: Orders Comprehensive Met. Panel Today N18.9 - Chronic kidney disease, unspecified Complete Blood Count Auto Diff Today Z13.0 - Encounter for screening for diseases of the blood and blood-forming organs and certain disorders involving the immune mechanism Medications: New zolpidem 5 mg PO BEDTIME 30 tabs 0RF Refilled metoprolol succinate ER 50 mg PO DAILY 90 days 90 tabs 2RF rosuvastatin 40 mg PO DAILY 90 days 90 tabs 2RF Coding Level of Care Code Est Pt Level 3 (17610) Diagnoses COVID-19 U07.1 Hypoxia R09.02 Heart failure with reduced ejection fraction I50.20 Coronary artery disease involving [place] coronary artery of [place] heart without angina pectoris I25.10 Coronary Disease-Associated Artery/Lesion type: [place] artery [place] vs. transplanted heart: [place] heart Associated angina: without angina Insomnia G47.00
[2023-01-26 12:50] VITALS: BP 160/70
== END 2023-01-26 11:44 | disposition home or self-care (01) ==
PROVIDERS: PCP Internal Medicine; Visit Provider Nurse Practitioner Family
DX: U07.1 COVID-19 (principal); R09.02 Hypoxemia; I50.20 Unspecified systolic (congestive) heart failure; I25.10 Atherosclerotic heart disease of native coronary artery without angina pectoris; G47.00 Insomnia, unspecified
CPT/HCPCS: 99213

== ENCOUNTER 2023-07-20 14:38 | Outpatient (AMB) | payer MEDICARE, SELFPAY ==
[2023-07-20 14:43] VITALS: BP 140/72; PULSE 79; O2SAT 94; BMI 25.4
--- NOTE | 2023-07-20 14:43 | A.OFFPC_ITS ---
Vital Signs 07/20/23 14:43 Height 5 ft 11 in Weight 182 lb 0.4 oz BMI 25.4 BP 140/72 H Blood Pressure Location Lt brachial Position Sitting Pulse 79 Pulse Source Pulse Oximeter Pulse Oximetry (%) 94 Oxygen Delivery Method Room Air Intake Visit Reasons: 4M. F/U-HTN/CKD/HF/Hypercholestermia Pharmacy Clinical Specialist Required: No Allergies ARB-Angiotensin Receptor Antagonist Adverse Reaction (Severe, Verified 07/20/23 14:44) [facility] MALVIN Inhibitors Adverse Reaction (Intermediate, Verified 07/20/23 14:44) [facility] Medication List - Last Reconciled 07/20/23 by Boy Jorge MD amlodipine 5 mg PO DAILY aspirin 81 mg PO DAILY ezetimibe 10 mg PO DAILY furosemide (Lasix) 20 mg PO DAILY isosorbide mononitrate ER 30 mg PO DAILY 90 days metoprolol succinate ER 50 mg PO DAILY 90 days omeprazole 20 mg PO BID@0630,1630 rosuvastatin 40 mg PO DAILY 90 days zolpidem 5 mg PO BEDTIME Tobacco use date assessed: 07/20/23 Fall risk assessment: No Falls in past year Last assessed Fall Risk: 07/20/23 Dental Screening Dental Screen Date: 07/20/23 Did you have a dental visit in the last 12 months?: No Did you have a dental problem in the last 6 months where you did not have access to dental care?: No HPI 4M. F/U-HTN/CKD/HF/Hypercholestermia HPI Details 63-year-old male with congestive heart f ailure with reduced ejection fraction coronary artery disease coming in for follow-up. Last seen in January 2023. Patient is due for Cologuard test later this year February 2024. Last echocardiogram noted September 2022 [facility], [facility] Medical History Adult general medical exam Screening for prostate cancer Heart failure with reduced ejection fraction Ischemic cardiomyopathy Colonoscopy refused Colon cancer screening Obesity (BMI 30-39.9) Umbilical hernia COPD (chronic obstructive pulmonary disease) Coronary artery disease GERD (gastroesophageal reflux disease) Hypercholesterolemia Insomnia Hypertension Surgical History Hx of CABG Family History Father No problems noted. Mother No problems noted. Sister No problems noted. Sister No problems noted. Brother No problems noted. Brother Myocardial infarct Liver cancer Social History Household Members: Other Household Members Other:: brother Housing: House Do you presently have visiting nurse or other home services: Yes Alcohol intake: former Patient Tobacco Use Status: Former Tobacco user Tobacco use type: Cigarette Cigarettes Per Day: 10 e-Cigarette/Vaping Use: Never Used Second Hand Smoke Exposure: No Substance Use Type: Marijuana Advance Directives Date on File: 02/16/20 service: No Current occupational status: disabled Cognitive needs: No Hearing needs: No Vision needs: Yes Questionnaire Thrive Questionnaire Date Thrive assessed: 07/20/23 I am a: Patient What is your living situation today?: I have a steady place to live Within the past 12 months, did the food you bought not last and you didn't have the money to get more?: Never true Within the past 12 months, did you worry whether your food would run out before you got money to buy more?: Never true Do you have trouble paying for medicines?: No Do you have trouble getting transportation to medical appointments?: No Do you have trouble paying your heating and electricity bill?: No Do you have trouble taking care of your child, family member or friend?: No Do you have trouble with day-to-day activities such as bathing, preparing meals, shopping, managing finances, etc.?: No Are you currently unemployed and looking for a job?: No Are you interested in more education?: No Please select the resources that you would like help with: None THRIVE Score: 0 AUDIT C Alcohol Use Questionnaire (AUDIT-C) 1. How often do you have a drink containing alcohol?: 4 or more times a week 2. How many drinks containing alcohol do you have on a typical day when you are drinking?: 3 or 4 3. How often do you have six or more drinks on one occasion?: Less than monthly Total Score: 6 Score Reviewed/Action Taken: Yes JUAN-7 AMB Questionnaire JUAN-7 Date JUAN - 7 assessed: 07/20/23 Source: Developed by Drs. Johnny Araiza, Tamiko Mcdonald, Negrito Maurer and colleagues, with an educational franklin from [employer]. Physical exam (Primary Care) Vital Signs: Last Vital Signs Pulse 79 07/20/23 14:43 BP 140/72 H 07/20/23 14:43 Pulse Ox 94 07/20/23 14:43 Oxygen Delivery Method Room Air 07/20/23 14:43 BMI result Body Mass Index 25.4 Tobacco/Smoking Status: Tobacco use Status Tobacco use date assessed 07/20/23 07/20/23 14:50 Patient Tobacco Use Status Former Tobacco user 07/20/23 14:50 Tobacco use type Cigarette 07/20/23 14:50 e-Cigarette/Vaping Use Never Used 07/20/23 14:50 Thrive Assessment: Date of Thrive Assessment Date Thrive assessed 07/20/23 07/20/23 14:50 Const General: alert; No acute distress Eyes Conjunctivae: conjunctivae normal Resp Auscultation: clear to auscultation bilaterally Cardio Rate: regular rate Rhythm: regular rhythm GI Inspection: Yes normal to inspection Extrem General: Yes normal to inspection and No edema Assessment and Plan Assessment & Plan (1) Coronary artery disease: Comment: [place], circumflex stenting in 2009, unstable angina, LAD stenting in 2011. Persistent significant angina with abnormal stress test leading to 3 vessel coronary artery bypass grafting in 2012 echocardiogram September 2021Normal left ventricular cavity size. There is mildly increased left ventricular wall thickness. The left ventricular systolic function is mildly decreased. The visually estimated ejection fraction is between 40-45%. - E/E prime ratio is between 8 and 15 consistent with indeterminate filling pressures. - The basal inferior and mid inferior segments are akinetic. - Normal right ventricular cavity size and systolic function. Code(s): I25.10 - Atherosclerotic heart disease of [place] coronary artery without angina pectoris Qualifiers: Coronary Disease-Associated Artery/Lesion type: [place] artery [place] vs. transplanted heart: [place] heart Associated angina: without angina Qualified Code(s): I25.10 - Atherosclerotic heart disease of [place] coronary artery without angina pectoris Plan: Control the cholesterol, weight, blood pressure continue with aspirin 81 mg once a day patient was advised to follow-up with cardiology (2) Heart failure with reduced ejection fraction: Code(s): I50.20 - Unspecified systolic (congestive) heart failure Plan: Weigh daily continue with the diuretic. Advised to get blood work done (3) Hypercholesterolemia: Code(s): E78.00 - Pure hypercholesterolemia, unspecified Plan: Avoid fried foods, chicken skin, eggs, butter margarine, pastries and meat. Be it pork or beef they have a lot of cholesterol LDL goal of less than 70 and triglyceride of less than 150 September 2022 last blood work (4) Impaired glucose tolerance: Code(s): R73.02 - Impaired glucose tolerance (oral) Plan: Decrease the amount of carbohydrate intake, pasta, bread, rice and potatoes are all sugar and that is aside from all the sweet stuff, remember that fruits are good but they are Sweet also. (5) GERD (gastroesophageal reflux disease): Code(s): K21.9 - Gastro-esophageal reflux disease without esophagitis Qualifiers: Esophagitis presence: without esophagitis Qualified Code(s): K21.9 - Gastro-esophageal reflux disease without esophagitis Plan: Avoid the foods that causes that usually spicy foods, tomato products, juices, coffee, soda and foods that your sensitive to. After eating do not lie down, allow 3-4 hours before in lie down. And keep the head of bed above 30 degrees to avoid the acid from going up. Orders: Orders Complete Blood Count Auto Diff Today Z13.0 - Encounter for screening for diseases of the blood and blood-forming organs and certain disorders involving the immune mechanism Thyroid Stimulating Hormone Today I25.10 - Atherosclerotic heart disease of [place] coronary artery without angina pectoris Lipid Panel Today E78.00 - Pure hypercholesterolemia, unspecified, I25.10 - Atherosclerotic heart disease of [place] coronary artery without angina pectoris Hemoglobin A1c Today R73.9 - Hyperglycemia, unspecified B Type Natriuretic Peptide Today I50.20 - Unspecified systolic (congestive) heart failure CA echo transthoracic complete 2 Months I25.10 - Atherosclerotic heart disease of [place] coronary artery without angina pectoris Comprehensive Met. Panel Today N18.9 - Chronic kidney disease, unspecified Free T4 (Free Thyroxine) Today I25.10 - Atherosclerotic heart disease of [place] coronary artery without angina pectoris Vitamin B12 and Folate Today I25.10 - Atherosclerotic heart disease of [place] coronary artery without angina pectoris Prostate Specific Antigen Scr Today I25.10 - Atherosclerotic heart disease of [place] coronary artery without angina pectoris Coding Level of Care Code Est Pt Level 4 (48553) Diagnoses Coronary artery disease involving [place] coronary artery of [place] heart without angina pectoris I25.10 Coronary Disease-Associated Artery/Lesion type: [place] artery [place] vs. transplanted heart: [place] heart Associated angina: without angina Heart failure with reduced ejection fraction I50.20 Hypercholesterolemia E78.00 Impaired glucose tolerance R73.02 Gastroesophageal reflux disease without esophagitis K21.9 Esophagitis presence: without esophagitis
== END 2023-07-20 15:17 | disposition home or self-care (01) ==
PROVIDERS: PCP Internal Medicine; Visit Provider Internal Medicine
DX: I25.10 Atherosclerotic heart disease of native coronary artery without angina pectoris (principal); I50.20 Unspecified systolic (congestive) heart failure; E78.00 Pure hypercholesterolemia, unspecified; R73.02 Impaired glucose tolerance (oral); K21.9 Gastro-esophageal reflux disease without esophagitis
CPT/HCPCS: 99214

== ENCOUNTER → 2023-09-18 09:51 | Outpatient (REF) | payer MEDICARE, SELFPAY ==
--- NOTE | 2023-09-18 09:54 | CA_ITS ---
Transthoracic Echocardiogram Patient (Last, First, Middle): Johnny Pittman L Gender: Male Date of : 1960 Age: 63 Procedure Date: 09/18/2023 Procedure Type: Transthoracic Echocardiogram Location: OP Height: 177.8 cm Weight: 86.18 kg BSA: 2.04 m2 Heart Rate: bpm BP: 138 / 70 mmHg Outside Dealer Sales Representative: CASSANDRA Referring MD: Boy Jorge MD Symptoms: I25.10 - Atherosclerotic heart disease of [place] coronary artery without... Study Quality: Adequate w contrast Conclusions: - Mildly increased left ventricular cavity size. There is normal left ventricular wall thickness. The left ventricular systolic function is moderately decreased. The visually estimated ejection fraction is between 30-35%. - The apical inferior segment is hypokinetic. - There is mild to moderately decreased right ventricular systolic function. Findings Procedure Information Contrast agent, definity, is being given per protocol without apparent complications. Left Ventricle Mildly increased left ventricular cavity size. There is normal left ventricular wall thickness. The left ventricular systolic function is moderately decreased. The visually estimated ejection fraction is between 30 35%. There is evidence of regional wall motion abnormalities. Abnormal diastolic function is noted. Spectral Doppler is indicative of an impaired relaxation filling pattern. E/E prime ratio is between 8 and 15 consistent with indeterminate filling pressures. Wall Motion Rest Echo Findings The apical inferior segment is hypokinetic. The basal inferior, mid anterior, and mid inferior segments are akinetic. Right Ventricle Normal right ventricular cavity size. There is mild to moderately decreased right ventricular systolic function. Atria Both atria are normal in size. Aortic Valve Normal aortic valve structure and function. There is no aortic valve stenosis. There is no aortic valve regurgitation. Mitral Valve The mitral valve appears normal. There is trace mitral valve regurgitation. There is no mitral valve stenosis. Pulmonic Valve Normal pulmonic valve structure and function. There is trace pulmonic valve regurgitation. Tricuspid Valve Normal tricuspid valve structure and function. There is no tricuspid valve regurgitation. The right ventricular systolic pressure is 31 mmHg. Normal right atrial pressure. There is no evidence of pulmonary hypertension. Great Vessels All visible segments of the aorta are normal in size. The visualized portions of the pulmonary artery and branches are normal. Venous The inferior vena cava is normal in size and collapses greater than 50% with inspiration. Pericardium/Pleural There is no evidence of pericardial effusion. Prior Study Comparison Changes noted compared to prior study dated: 09/11/2021. EF 30-35%, RWMA, Mild to moderate RV dysfunction. Measurements 2D Linear Measurements IVSd: 0.98 0.6-0.9/0.6-1.0 cm LVIDd: 6.02 3.9-5.3/4.2-5.9 cm LVIDd Index: 2.95 2.4-3.2/2.2-3.1 cm/m2 LVIDs: 5.21 2.0-3.6 cm LVPWd: 1.00 0.7-1.1 cm LA Diam: 3.70 2.7-3.8/3.0-4.0 cm LAIDs Index: 1.81 1.5-2.3 cm/m2 LV Mass: 305.39 67-162/88-224 g LV Mass Index: 149.70 43-95/49-115 g/m2 LVOT Diam: 2.30 3.0+(-)1.3 cm 2D Systolic Function EF 4C: 29.30 >55% EF 2C: 28.30 >55% EF BiP: 31.50 >55% Mitral Valve MV Pk E: 0.59 MV PK A: 0.93 MV Decel Time: 271.00 E/A: 0.60 E'Lateral: 5.87 E'Medial: 5.33 E/E' Med: 11.00 E/E' Lat: 10.00 PHT: 79.00 MVA PHT: 2.78 Decel Piute: 2.16 Aortic Valve AoV Pk Chinmay: 1.16 AoV Mn Chinmay: 0.83 AoV VTI: 0.25 AoV Pk Grad: 5.00 Aov Mn Grad: 3.00 DANETTE Cont.VTI: 3.80 LVOT LVOT Pk Chinmay: 1.17 LVOT Mn Chinmay: 0.68 LVOT VTI: 0.23 LVOT Pk Grad: 5.00 LVOT Mn Grad: 2.00 LVOT Diam: 2.30 LVOT Area: 4.15 Diastolic Function MV Pk E: 0.59 MV Pk A: 0.93 E/A: 0.60 E'Medial: 5.33 E/E' Med: 11.00 E' Laterial: 5.87 E/E' Lat: 10.00 Right Ventricle TAPSE (mm): 8.76 TVS' Chinmay: 8.38 Tricuspid Valve TR Pk Chinmay: 2.63 TR Pk Grad: 28.00 RA Press: 3.00 RVSP: 31.00 Great Vessels Aorta Sinus of Valsalva: 3.50 2.0-3.5 cm Ao Asc: 3.40 2.1-3.4 cm Pulmonary Valve PV Pk Chinmay: 0.99 Peak PV Grad: 4.00 Updated in Other Vendor System with Status of Final Sukhwinder Campos MD electronically signed on 09/20/2023 2:25:54 PM with status of Final
== END ==
LOC: HO.CARD 09:51
PROVIDERS: PCP Internal Medicine; Visit Provider Internal Medicine
DX: I25.10 Atherosclerotic heart disease of native coronary artery without angina pectoris (principal)
CPT/HCPCS: 93306; Q9957

== ENCOUNTER → 2023-09-18 09:54 | Outpatient (BNV) | payer MEDICARE, SELFPAY | PROVIDERS: PCP Internal Medicine; Visit Provider Internal Medicine Cardiovascular Disease | DX: I25.10 Atherosclerotic heart disease of native coronary artery without angina pectoris (principal) | CPT/HCPCS: 93306 ==

== ENCOUNTER 2023-11-04 06:36 | Outpatient (REF) | payer MEDICARE, SELFPAY ==
[2023-11-04 06:49] LABS: MANUAL DIFF FLAG NO
[2023-11-04 07:21] LABS: Basophils Absolute Auto 0.1 X10*3/uL (0.0-0.2); Basophils Percent Auto 0.7 % (0-2); Eosinophils Absolute Auto 0.1 X10*3/uL (0.0-0.4); Eosinophils Percent Auto 1.5 % (0-4); Hematocrit 48.8 % (42.0-52.0); Imm Gran Abs Auto 0.02 X10*3/uL (0.00-0.03); Imm Gran Pct Auto 0.3 % (0.0-0.4); Lymphocytes Absolute Auto 2.9 X10*3/uL (1.2-4.9); Lymphocytes Percent Auto 38.4 % (20-40); Mean Corpuscular HGB Conc 32.8 g/dl (31.0-36.0); Mean Corpuscular Hemoglobin 32.9 pg (27.0-33.0); Mean Corpuscular Volume 100.4 fL (80.0-98.0); Mean Platelet Volume 10.6 fL (9.4-12.4); Monocytes Absolute Auto 0.6 X10*3/uL (0.1-1.2); Monocytes Percent Auto 8.5 % (2-11); Neutrophils Absolute Auto 3.8 x10*3/uL (2.0-8.3); Neutrophils Percent Auto 50.6 % (45-73); Platelet Count 175 X10*3/uL (160-400); Red Blood Count 4.86 X10*6/uL (4.60-5.80); Red Cell Distribution Width 12.9 % (11.0-16.0); White Blood Count 7.6 X10*3/uL (4.8-10.8)
[2023-11-04 07:31] LABS: Estimated Average Glucose 103 mg/dL; Hemoglobin A1c % 5.2 % (<6.0)
[2023-11-04 07:42] LABS: B Type Natriuretic Peptide 312 pg/mL (<100)
[2023-11-04 07:52] LABS: Alanine Aminotransferase 40 U/L (0-40); Albumin Level 3.9 g/dL (3.5-5.0); Alkaline Phosphatase 113 U/L (39-117); Anion Gap 14 (12-20); Aspartate Amino Transferase 70 U/L (5-37); Bilirubin Total 0.7 mg/dL (0.0-1.0); Blood Urea Nitrogen 10 mg/dL (9-16); Calcium 9.9 mg/dL (8.4-10.2); Carbon Dioxide 31 mmol/L (22-29); Chloride 100 mmol/L (96-108); Cholesterol 125 mg/dL (<200); Estimated Glomerular Filt Rate > 60; Glucose Random 108 mg/dL (60-115); HDL Cholesterol 50 mg/dL (>40); LDL Cholesterol Calculated 54 mg/dL (<100); Potassium 3.7 mmol/L (3.3-5.1); Sodium 141 mmol/L (135-145); Total Protein 7.1 g/dL (6.5-8.0); Triglycerides 106 mg/dL (<150)
[2023-11-04 08:10] LABS: Free T4 (Free Thyroxine) 0.81 ng/dL (0.71-1.85); Thyroid Stimulating Hormone 1.76 uIU/mL (0.32-4.0)
[2023-11-04 08:16] LABS: Folate 10.3 ng/mL (> or = 4.0); Prostate Specific Antigen Scr 0.29 ng/mL (<0.05-4.0); Vitamin B12 683 pg/mL (200-900)
== END 2023-11-04 06:37 | disposition home or self-care (01) ==
LOC: HO.LAB 06:36
PROVIDERS: PCP Internal Medicine; Visit Provider Internal Medicine
DX: I50.20 Unspecified systolic (congestive) heart failure (principal); E78.00 Pure hypercholesterolemia, unspecified; Z12.5 Encounter for screening for malignant neoplasm of prostate; N18.9 Chronic kidney disease, unspecified; R73.9 Hyperglycemia, unspecified; I25.10 Atherosclerotic heart disease of native coronary artery without angina pectoris
CPT/HCPCS: 36415; 80053; 80061; 82607; 82746; 83036; 83880; 84153; 84439; 84443; 85025

== ENCOUNTER 2023-11-09 10:52 | Outpatient (AMB) | payer MEDICARE, SELFPAY ==
[2023-11-09 11:04] VITALS: BP 130/76; PULSE 77; O2SAT 92; BMI 25.2
--- NOTE | 2023-11-09 11:04 | MHC.PC.OV ---
Vital Signs 11/09/23 11:04 Height 5 ft 11 in Weight 181 lb BMI 25.2 BP 130/76 Blood Pressure Location Lt brachial Position Sitting Pulse 77 Pulse Source Pulse Oximeter Pulse Oximetry (%) 92 Oxygen Delivery Method Room Air Intake Visit Reasons: 3mth f/u Allergies ARB-Angiotensin Receptor Antagonist Adverse Reaction (Severe, Verified 11/09/23 11:05) [place] MALVIN Inhibitors Adverse Reaction (Intermediate, Verified 11/09/23 11:05) [facility] Medication List - Last Reconciled 11/09/23 by Boy Jorge MD amlodipine 5 mg PO DAILY aspirin 81 mg PO DAILY ezetimibe 10 mg PO DAILY furosemide (Lasix) 20 mg PO DAILY isosorbide mononitrate ER 30 mg PO DAILY 90 days metoprolol succinate ER 50 mg PO DAILY 90 days omeprazole 20 mg PO BID@0630,1630 rosuvastatin 40 mg PO DAILY 90 days zolpidem 5 mg PO BEDTIME Tobacco use date assessed: 07/20/23 Fall risk assessment: No Falls in past year Last assessed Fall Risk: 11/09/23 Dental Screening Dental Screen Date: 11/09/23 Did you have a dental visit in the last 12 months?: No Did you have a dental problem in the last 6 months where you did not have access to dental care?: No Was dental information given to patient?: No HPI 3mth f/u HPI Details 63-year-old male with multiple medical problems last seen in July coronary artery disease congestive heart failure hypercholesterolemia impaired glucose tolerance and GERD. Echocardiogram done in September 2023 Mildly increased left ventricular cavity size. There is normal left ventricular wall thickness. The left ventricular systolic function is moderately decreased. The visually estimated ejection fraction is between 30-35%. - The apical inferior segment is hypokinetic. - There is mild to moderately decreased right ventricular systolic function. [facility] Medical History (Updated 11/09/23 @ 11:41 by Boy Jorge MD) Adult general medical exam Screening for prostate cancer Heart failure with reduced ejection fraction Ischemic cardiomyopathy Colonoscopy refused Colon cancer screening Obesity (BMI 30-39.9) Umbilical hernia COPD (chronic obstructive pulmonary disease) Coronary artery disease GERD (gastroesophageal reflux disease) Hypercholesterolemia Insomnia Hypertension Surgical History Hx of CABG Family History Father No problems noted. Mother No problems noted. Sister No problems noted. Sister No problems noted. Brother No problems noted. Brother Myocardial infarct Liver cancer Social History Household Members: Other Household Members Other:: brother Housing: House Do you presently have visiting nurse or other home services: Yes Alcohol intake: former Patient Tobacco Use Status: Former Tobacco user Tobacco use type: Cigarette Cigarettes Per Day: 10 e-Cigarette/Vaping Use: Never Used Second Hand Smoke Exposure: No Substance Use Type: Marijuana Advance Directives Date on File: 02/16/20 service: No Current occupational status: disabled Cognitive needs: No Hearing needs: No Vision needs: Yes Questionnaire PHQ-9 Over the last 2 weeks, how often have you been bothered by any of the following problems? 1. Little interest or pleasure in doing things: not at all 2. Feeling down, depressed, or hopeless: not at all 3. Trouble falling or staying asleep, or sleeping too much: not at all 4. Feeling tired or having little energy: not at all 5. Poor appetite or overeating: not at all 6. Feeling bad about yourself - or that you are a failure or have let yourself or your family down: not at all 7. Trouble concentrating on things, such as reading the newspaper or watching television: not at all 8. Moving or speaking so slowly that other people could have noticed. Or the opposite - being so fidgety or restless that you have been moving around a lot more than usual: not at all 9. Thoughts that you would be better off or of hurting yourself in some way: not at all Total score: 0 Depression Screening Interpretation: Negative Depression Screening Done: Yes Source: Developed by Drs. Johnny Araiza, Tamiko Mcdonald, Negrito Maurer and colleagues, with an educational franklin from [employer]. Thrive Questionnaire Date Thrive assessed: 07/20/23 AUDIT C Alcohol Use Questionnaire (AUDIT-C) 1. How often do you have a drink containing alcohol?: 4 or more times a week 2. How many drinks containing alcohol do you have on a typical day when you are drinking?: 3 or 4 3. How often do you have six or more drinks on one occasion?: Less than monthly Total Score: 6 Score Reviewed/Action Taken: Yes JUAN-7 AMB Questionnaire JUAN-7 Date JUAN - 7 assessed: 07/20/23 Source: Developed by Drs. Johnny Araiza, Tamiko Mcdonald, Negrito Maurer and colleagues, with an educational franklin from [employer]. Physical exam (Primary Care) Vital Signs: Last Vital Signs Pulse 77 11/09/23 11:04 BP 130/76 11/09/23 11:04 Pulse Ox 92 11/09/23 11:04 Oxygen Delivery Method Room Air 11/09/23 11:04 BMI result Body Mass Index 25.2 Tobacco/Smoking Status: Tobacco use Status Tobacco use date assessed 07/20/23 11/09/23 11:08 Patient Tobacco Use Status Former Tobacco user 11/09/23 11:08 Tobacco use type Cigarette 11/09/23 11:08 e-Cigarette/Vaping Use Never Used 11/09/23 11:08 PHQ-9: PHQ-9 Score PHQ-9: Total score 0 11/09/23 11:08 Depression Screening Interpretation: Negative Thrive Assessment: Date of Thrive Assessment Date Thrive assessed 07/20/23 11/09/23 11:08 Const General: alert; No acute distress Eyes Conjunctivae: conjunctivae normal Resp Auscultation: clear to auscultation bilaterally Cardio Rate: regular rate Rhythm: regular rhythm GI Inspection: Yes normal to inspection Extrem General: Yes normal to inspection and No edema Assessment and Plan Assessment & Plan (1) Tobacco abuse: Comment: Stop August 2021. Stop 04/2022 Code(s): Z72.0 - Tobacco use Plan: Patient is strongly advised to stop smoking! (2) Hypercholesterolemia: Code(s): E78.00 - Pure hypercholesterolemia, unspecified Plan: Avoid fried foods, chicken skin, eggs, butter margarine, pastries and meat. Be it pork or beef they have a lot of cholesterol takes rosuvastatin 40 mg once a day (3) Impaired glucose tolerance: Code(s): R73.02 - Impaired glucose tolerance (oral) Plan: Decrease the amount of carbohydrate intake, pasta, bread, rice and potatoes are all sugar and that is aside from all the sweet stuff, remember that fruits are good but they are Sweet also. (4) Alcohol abuse: Code(s): F10.10 - Alcohol abuse, uncomplicated Plan: Patient is strongly advised to stop alcohol/abstain (5) Heart failure with reduced ejection fraction: Code(s): I50.20 - Unspecified systolic (congestive) heart failure Plan: Continue with furosemide and the beta angel. (6) Coronary artery disease: Comment: [place], circumflex stenting in 2009, unstable angina, LAD stenting in 2011. Persistent significant angina with abnormal stress test leading to 3 vessel coronary artery bypass grafting in 2012 echocardiogram September 2021Normal left ventricular cavity size. There is mildly increased left ventricular wall thickness. The left ventricular systolic function is mildly decreased. The visually estimated ejection fraction is between 40-45%. - E/E prime ratio is between 8 and 15 consistent with indeterminate filling pressures. - The basal inferior and mid inferior segments are akinetic. - Normal right ventricular cavity size and systolic function. Code(s): I25.10 - Atherosclerotic heart disease of [place] coronary artery without angina pectoris Qualifiers: Coronary Disease-Associated Artery/Lesion type: [place] artery [place] vs. transplanted heart: [place] heart Associated angina: without angina Qualified Code(s): I25.10 - Atherosclerotic heart disease of [place] coronary artery without angina pectoris Plan: Control the cholesterol, weight, blood pressure, on aspirin 81 mg once a day (7) Cardiomyopathy: Comment: Echocardiogram September 2023 Code(s): I42.9 - Cardiomyopathy, unspecified Plan: Continue to follow up with Cardiology (8) GERD (gastroesophageal reflux disease): Code(s): K21.9 - Gastro-esophageal reflux disease without esophagitis Qualifiers: Esophagitis presence: without esophagitis Qualified Code(s): K21.9 - Gastro-esophageal reflux disease without esophagitis Plan: Avoid the foods that causes that usually spicy foods, tomato products, juices, coffee, soda and foods that your sensitive to. After eating do not lie down, allow 3-4 hours before in lie down. And keep the head of bed above 30 degrees to avoid the acid from going up. (9) COPD (chronic obstructive pulmonary disease): Code(s): J44.9 - Chronic obstructive pulmonary disease, unspecified Qualifiers: COPD type: emphysema Emphysema type: panlobular Qualified Code(s): J43.1 - Panlobular emphysema Orders: Referrals Cardiology Referral I25.10 - Atherosclerotic heart disease of [place] coronary artery without angina pectoris Medications: New albuterol sulfate 90 mcg/actuation (Ventolin HFA) 2 puffs inhalation Q6H PRN 8.5 grams 0RF shortness of breath or wheezing J43.1 - Panlobular emphysema fluticasone furoate-vilanterol 100-25 mcg/dose (Breo Ellipta) 1 inh inhalation DAILY 60 ea 6RF J43.1 - Panlobular emphysema furosemide (Lasix) 20 mg PO DAILY 30 tabs 2RF J43.1 - Panlobular emphysema Coding Level of Care Code Est Pt Level 4 (52980) Complex EM visit Add On G2211 Diagnoses Tobacco abuse Z72.0 Hypercholesterolemia E78.00 Impaired glucose tolerance R73.02 Alcohol abuse F10.10 Heart failure with reduced ejection fraction I50.20 Coronary artery disease involving [place] coronary artery of [place] heart without angina pectoris I25.10 Coronary Disease-Associated Artery/Lesion type: [place] artery [place] vs. transplanted heart: [place] heart Associated angina: without angina Cardiomyopathy I42.9 Gastroesophageal reflux disease without esophagitis K21.9 Esophagitis presence: without esophagitis Panlobular emphysema J43.1 COPD type: emphysema Emphysema type: panlobular
== END 2023-11-09 11:44 | disposition home or self-care (01) ==
PROVIDERS: PCP Internal Medicine; Visit Provider Internal Medicine
DX: I50.20 Unspecified systolic (congestive) heart failure (principal); I42.9 Cardiomyopathy, unspecified; J43.1 Panlobular emphysema; Z72.0 Tobacco use; E78.00 Pure hypercholesterolemia, unspecified; R73.02 Impaired glucose tolerance (oral); F10.10 Alcohol abuse, uncomplicated; I25.10 Atherosclerotic heart disease of native coronary artery without angina pectoris; K21.9 Gastro-esophageal reflux disease without esophagitis
CPT/HCPCS: 99214; G2211

== ENCOUNTER 2024-02-16 12:42 | Outpatient (AMB) | payer MEDICARE, SELFPAY ==
[2024-02-16 13:04] VITALS: BP 120/74; PULSE 74; BMI 26.1
--- NOTE | 2024-02-16 13:04 | A.OFFVIS_ITS ---
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/Coronary artery disease Intake Note: Overdue follow-up dx CAD last seen 2021 feeling good Allergies ARB-Angiotensin Receptor Antagonist Adverse Reaction (Severe, Verified 11/09/23 11:05) [place] MALVIN Inhibitors Adverse Reaction (Intermediate, Verified 11/09/23 11:05) [place] Medication List - Last Reconciled 02/16/24 by Ian Gallardo MD albuterol sulfate 90 mcg/actuation (Ventolin HFA) 2 puffs inhalation Q6H PRN amlodipine 5 mg PO DAILY aspirin 81 mg PO DAILY ezetimibe 10 mg PO DAILY fluticasone propion-salmeterol 250-50 mcg/dose (Wixela Inhub) 1 inh inhalation BID furosemide (Lasix) 20 mg PO DAILY isosorbide mononitrate ER 30 mg PO DAILY 90 days metoprolol succinate ER 50 mg PO DAILY 90 days omeprazole 20 mg PO BID@0630,1630 rosuvastatin 40 mg PO DAILY 90 days HPI Comments Details: Johnny was reestablish with our practice and has been lost to follow-up for more than a year. He said he was hospitalized and then missed appointments. He comes back for follow-up, recent echocardiogram May shows worsening of his LV ejection fraction to 30-35%. He denies any symptoms exertional chest pain. Continues to have continued exertional shortness of breath but this is unchanged. Does not smoke currently. Denies any orthopnea, PND, leg edema. Takes his medications. Currently not on angiotensin receptor antagonist due to acute kidney injury associated with him has not tolerated them well. Denies any prolonged palpitation or irregular heartbeat. [facility] Medical History (Updated 02/16/24 @ 13:25 by Ian Gallardo MD) Heart failure with reduced ejection fraction Adult general medical exam Screening for prostate cancer Ischemic cardiomyopathy Colonoscopy refused Colon cancer screening Obesity (BMI 30-39.9) Umbilical hernia COPD (chronic obstructive pulmonary disease) Coronary artery disease GERD (gastroesophageal reflux disease) Hypercholesterolemia Insomnia Hypertension Surgical History Hx of CABG Family History Father No problems noted. Mother No problems noted. Sister No problems noted. Sister No problems noted. Brother No problems noted. Brother Myocardial infarct Liver cancer Social History Household Members: Other Household Members Other:: brother Housing: House Do you presently have visiting nurse or other home services: Yes Alcohol intake: former Patient Tobacco Use Status: Former Tobacco user Tobacco use type: Cigarette Cigarettes Per Day: 10 e-Cigarette/Vaping Use: Never Used Second Hand Smoke Exposure: No Substance Use Type: Marijuana Advance Directives Date on File: 02/16/20 service: No Current occupational status: disabled Cognitive needs: No Hearing needs: No Vision needs: Yes Review of Systems Const Denies chills, Denies daytime sleepiness, Denies fatigue, Denies fever(s), Denies frequent falls, Denies poor appetite, Denies snoring, Denies stops breathing during sleep, Denies weakness, Denies weight gain and Denies weight loss Eyes Denies loss of vision ENT Denies dizziness and Denies hearing loss Card Denies chest pain, Denies claudication, Denies leg edema, Denies lightheadedness, Denies palpitations, Denies dyspnea, Denies dyspnea on exertion and Denies orthopnea Resp Denies cough, Denies excessive phlegm production, Denies dyspnea, Denies dyspnea on exertion, Denies snoring and Denies wheezing GI Denies abdominal pain, Denies hematochezia, Denies change in bowel habits, Denies nausea and Denies vomiting Denies dysuria and Denies urinary frequency Musc Denies arthralgias, Denies muscle weakness, Denies numbness and Denies other (frequent falls) Skin/Breast Denies nail changes and Denies rash Neuro Denies Abnormal speech present, Denies dizziness, Denies frequent falls, Denies loss of vision, Denies memory loss, Denies numbness and Denies weakness Psych Denies depression and Denies memory loss Endo Denies fatigue and Denies palpitations Oscar/Lymph Reports easy bruising and Reports other (anemia) Aller/Immun Denies wheezing Physical Exam Vital Signs: Last Vital Signs Pulse 74 02/16/24 13:04 BP 120/74 02/16/24 13:04 BMI result Body Mass Index 26.1 Const General: cooperative, comfortable, no acute distress, alert and awake Nutritional Appearance: overweight Orientation/consciousness: patient oriented x3 Limitations: no limitations HEENT Head: Yes atraumatic Neck Neck: Yes trachea midline, Yes supple and Yes no JVD Carotids: no bruits Chest Chest palpation & inspection: normal inspection of the chest Resp Effort & Inspection: normal respiratory effort Auscultation: clear to auscultation bilaterally, no rales, wheezes scattered wheezes and diminished lung sounds Cardio Jugular venous distension: no JVD Palpation: normal PMI Rate: regular rate Rhythm: regular rhythm Heart sounds: S1 normal heart sound present, S2 normal heart sound present, no click, no gallops, no murmurs and no rubs GI Auscultation: normal bowel sounds Skin General skin exam: no rashes or lesions noted Neuro General: patient oriented x3 and no focal motor deficits Speech: No Abnormal speech present Extrem General: Yes no clubbing, cyanosis or edema and Yes pedal edema Psych Appearance: grossly normal Assessment & Plan Assessment & Plan (1) Coronary artery disease: Comment: [place], circumflex stenting in 2009, unstable angina, LAD stenting in 2011. Persistent significant angina with abnormal stress test leading to 3 vessel coronary artery bypass grafting in 2012 echocardiogram September 2021Normal left ventricular cavity size. There is mildly increased left ventricular wall thickness. The left ventricular systolic function is mildly decreased. The visually estimated ejection fraction is between 40-45%. - E/E prime ratio is between 8 and 15 consistent with indeterminate filling pressures. - The basal inferior and mid inferior segments are akinetic. - Normal right ventricular cavity size and systolic function. Code(s): I25.10 - Atherosclerotic heart disease of [place] coronary artery without angina pectoris Category: Medical Qualifiers: Associated angina: without angina Coronary Disease-Associated Artery/Lesion type: [place] artery [place] vs. transplanted heart: [place] heart Qualified Code(s): I25.10 - Atherosclerotic heart disease of [place] coronary artery without angina pectoris Plan: CAD with premature coronary atherosclerosis requiring initially stenting and subsequently coronary artery bypass grafting three-vessel. Has no current symptoms suggestive angina although likelihood of obstructive graft disease is high I would suggest to pursue ischemic workup, see below. Continue aggressive risk factor modification. Currently on ezetimibe as well as rosuvastatin 40 mg well optimized LDL. Smoking cessation was applauded. Blood pressure is well optimized. Continue lifelong aspirin therapy. (2) Ischemic cardiomyopathy: Code(s): I25.5 - Ischemic cardiomyopathy Category: Medical Plan: Ischemic cardiomyopathy with further worsening LV ejection fraction which is concerning. Will assess for venous graft closure by myocardial perfusion imaging. If not will need to pursue possibly placement of ICD for primary prevention. Will discuss with him. Can not tolerate neurohormonal modulation with angiotensin receptor blockers due to acute kidney injury associated with it. Followed by Nephrology. Currently on isosorbide as well as metoprolol therapy. Also on amlodipine therapy for blood pressure control. Blood pressure is currently well optimized. Clinically appears to be euvolemic and well compensated. Continue current low-dose diuretic. Heart failure management was discussed. Daily weight monitoring avoidance of salt loading was discussed. Follow up in the clinic in 3 months time, sooner p.r.n.. Thank you for allowing me to partake in Orders: Orders CA lexiscan stress w julia Today I25.5 - Ischemic cardiomyopathy Coding Level of Care Code Est Pt Level 4 (98008) Diagnoses Coronary artery disease involving [place] coronary artery of [place] heart without angina pectoris I25.10 Associated angina: without angina Coronary Disease-Associated Artery/Lesion type: [place] artery [place] vs. transplanted heart: [place] heart Ischemic cardiomyopathy I25.5
== END 2024-02-16 13:27 | disposition home or self-care (01) ==
PROVIDERS: PCP Internal Medicine; Visit Provider Internal Medicine Cardiovascular Disease
DX: I25.10 Atherosclerotic heart disease of native coronary artery without angina pectoris (principal); I25.5 Ischemic cardiomyopathy; I50.20 Unspecified systolic (congestive) heart failure
CPT/HCPCS: 99214

== ENCOUNTER → 2024-02-16 12:42 | Outpatient (BNVA) | payer MEDICARE, SELFPAY | PROVIDERS: PCP Internal Medicine; Visit Provider Internal Medicine Cardiovascular Disease | DX: I25.10 Atherosclerotic heart disease of native coronary artery without angina pectoris (principal); I25.5 Ischemic cardiomyopathy | CPT/HCPCS: 99212 ==

== ENCOUNTER 2024-03-15 12:24 | Outpatient (AMB) | payer MEDICARE, SELFPAY ==
[2024-03-15 12:33] VITALS: BP 138/72; PULSE 78; O2SAT 96; BMI 26.8
--- NOTE | 2024-03-15 12:33 | A.OFFPC_ITS ---
Vital Signs 03/15/24 12:33 Height 5 ft 11 in Weight 192 lb BMI 26.8 BP 138/72 Blood Pressure Location Lt brachial Position Sitting Pulse 78 Pulse Source Pulse Oximeter Pulse Oximetry (%) 96 Oxygen Delivery Method Room Air Intake Visit Reasons: follow up Allergies ARB-Angiotensin Receptor Antagonist Adverse Reaction (Severe, Verified 03/15/24 12:33) [place] MALVIN Inhibitors Adverse Reaction (Intermediate, Verified 03/15/24 12:33) [place] Tobacco use date assessed: 07/20/23 Fall risk assessment: No Falls in past year Last assessed Fall Risk: 03/15/24 Dental Screening Dental Screen Date: 03/15/24 Did you have a dental visit in the last 12 months?: No Did you have a dental problem in the last 6 months where you did not have access to dental care?: No Was dental information given to patient?: No HPI follow up HPI Details 63-year-old male with a history of smoki ng. smoker with hypercholesterolemia impaired glucose tolerance history of alcohol abuse congestive heart failure coronary artery disease cardiomyopathy GERD COPD coming in for follow-up. Patient was last seen in November 2023. Patient's last Cologuard test was 02/27/2021 and so will need a new request. Last echocardiogram May EF of 30 35% patient has seen Cardiology February 15 continues to have exertional shortness of breath Soadvised ischemic workup with aggressive risk reduction. Zetia and rosuvastatin, aspirin. Myocardial perfusion imaging ICD primary prevention recommended 04/2024 myocardial scan [facility] [place] Medical History (Updated 03/15/24 @ 12:50 by Boy Jorge MD) Colon cancer screening Obesity (BMI 30-39.9) Tobacco abuse Heart failure with reduced ejection fraction Adult general medical exam Screening for prostate cancer Ischemic cardiomyopathy Colonoscopy refused Umbilical hernia COPD (chronic obstructive pulmonary disease) Coronary artery disease GERD (gastroesophageal reflux disease) Hypercholesterolemia Insomnia Hypertension Surgical History Hx of CABG Family History Father No problems noted. Mother No problems noted. Sister No problems noted. Sister No problems noted. Brother No problems noted. Brother Myocardial infarct Liver cancer Social History Household Members: Other Household Members Other:: brother Housing: House Do you presently have visiting nurse or other home services: Yes Alcohol intake: former Patient Tobacco Use Status: Former Tobacco user Tobacco use type: Cigarette Cigarettes Per Day: 10 e-Cigarette/Vaping Use: Never Used Second Hand Smoke Exposure: No Substance Use Type: Marijuana Advance Directives Date on File: 02/16/20 service: No Current occupational status: disabled Cognitive needs: No Hearing needs: No Vision needs: Yes Questionnaire PHQ-9 Over the last 2 weeks, how often have you been bothered by any of the following problems? 1. Little interest or pleasure in doing things: not at all 2. Feeling down, depressed, or hopeless: not at all 3. Trouble falling or staying asleep, or sleeping too much: not at all 4. Feeling tired or having little energy: not at all 5. Poor appetite or overeating: not at all 6. Feeling bad about yourself - or that you are a failure or have let yourself or your family down: not at all 7. Trouble concentrating on things, such as reading the newspaper or watching television: not at all 8. Moving or speaking so slowly that other people could have noticed. Or the opposite - being so fidgety or restless that you have been moving around a lot more than usual: not at all 9. Thoughts that you would be better off or of hurting yourself in some way: not at all Total score: 0 Depression Screening Interpretation: Negative Depression Screening Done: Yes Source: Developed by Drs. Johnny Araiza, Negrito Lou and colleagues, with an educational franklin from [employer]. Thrive Questionnaire Date Thrive assessed: 07/20/23 AUDIT C Alcohol Use Questionnaire (AUDIT-C) 1. How often do you have a drink containing alcohol?: 4 or more times a week 2. How many drinks containing alcohol do you have on a typical day when you are drinking?: 3 or 4 3. How often do you have six or more drinks on one occasion?: Less than monthly Total Score: 6 Score Reviewed/Action Taken: Yes JUAN-7 AMB Questionnaire JUAN-7 Date JUAN - 7 assessed: 07/20/23 Source: Developed by Drs. Johnny Araiza, Tamiko B.W. Negrito Mcdonald and colleagues, with an educational franklin from [employer]. Physical exam (Primary Care) Vital Signs: Last Vital Signs Pulse 78 03/15/24 12:33 BP 138/72 03/15/24 12:33 Pulse Ox 96 03/15/24 12:33 Oxygen Delivery Method Room Air 03/15/24 12:33 BMI result Body Mass Index 26.8 Tobacco/Smoking Status: Tobacco use Status Tobacco use date assessed 07/20/23 03/15/24 12:38 Patient Tobacco Use Status Former Tobacco user 03/15/24 12:38 Tobacco use type Cigarette 03/15/24 12:38 e-Cigarette/Vaping Use Never Used 03/15/24 12:38 PHQ-9: PHQ-9 Score PHQ-9: Total score 0 03/15/24 13:00 Depression Screening Interpretation: Negative Thrive Assessment: Date of Thrive Assessment Date Thrive assessed 07/20/23 03/15/24 12:38 Const General: alert; No acute distress Eyes Conjunctivae: conjunctivae normal Resp Auscultation: clear to auscultation bilaterally Cardio Rate: regular rate Rhythm: regular rhythm GI Inspection: Yes normal to inspection Extrem General: Yes normal to inspection and No edema Office Procedures Flu Questionnaire Does the patient have a severe egg allergy?: No Does the patient have severe life threatening allergies?: No Does the patient have a fever or illness today?: No Has the patient ever had Guillain-[place] Syndrome?: No Has the patient ever had any past reaction to a flu shot?: No Immunizations Fluarix Triv [id number] (PF) 45 mcg (15 mcg x 3)/0.5 mL IM syringe Performing Provider: Boy Jorge MD [place] [facility] Administered by: Jyoti Villalobos CMA on 03/15/24 13:00 Dose Route Admin Location Dispensed Lot Number Expiration Date [facility] Education Spec 0.5 mL IM Left Deltoid 0.5 mL [id number] 11/07/24 [id number] [employer] VIS Given Date VIS Provided VIS Publication Date 03/15/24 Single Vaccine 20 Eligibility Eligibility Date Funding Source Not [facility] Eligible 03/15/24 Private Coding Level of Care Code Est Pt Level 4 (39323) Diagnoses Ischemic cardiomyopathy I25.5 Panlobular emphysema J43.1 COPD type: emphysema Emphysema type: panlobular Essential hypertension I10 Hypertension type: essential hypertension Gastroesophageal reflux disease without esophagitis K21.9 Esophagitis presence: without esophagitis Chronic kidney disease, unspecified CKD stage N18.9 Chronic kidney disease stage: unspecified stage Coronary artery disease involving [place] coronary artery of [place] heart without angina pectoris I25.10 Associated angina: without angina Coronary Disease-Associated Artery/Lesion type: [place] artery [place] vs. transplanted heart: [place] heart Hypercholesterolemia E78.00 Alcohol abuse F10.10 Colon cancer screening Z12.11 Assessment & Plan Assessment & Plan (1) Ischemic cardiomyopathy: Code(s): I25.5 - Ischemic cardiomyopathy Category: Medical Plan: Patient follows up with Cardiology and undergoing myocardial perfusion scan. Considering ICD placement (2) COPD (chronic obstructive pulmonary disease): Code(s): J44.9 - Chronic obstructive pulmonary disease, unspecified Category: Medical Qualifiers: COPD type: emphysema Emphysema type: panlobular Qualified Code(s): J43.1 - Panlobular emphysema Plan: Continue with albuterol inhaler and Wixela (3) Hypertension: Code(s): I10 - Essential (primary) hypertension Category: Medical Qualifiers: Hypertension type: essential hypertension Qualified Code(s): I10 - Essential (primary) hypertension Plan: Continue with blood pressure medication. Decrease salt intake and exercise presently on metoprolol 50 mg once a day amlodipine 5 mg once a day (4) GERD (gastroesophageal reflux disease): Code(s): K21.9 - Gastro-esophageal reflux disease without esophagitis Category: Medical Qualifiers: Esophagitis presence: without esophagitis Qualified Code(s): K21.9 - Gastro-esophageal reflux disease without esophagitis Plan: Avoid the foods that causes that usually spicy foods, tomato products, juices, coffee, soda and foods that your sensitive to. After eating do not lie down, allow 3-4 hours before in lie down. And keep the head of bed above 30 degrees to avoid the acid from going up. (5) Chronic kidney disease (CKD): Comment: Patient follows up with Nephrology Code(s): N18.9 - Chronic kidney disease, unspecified Category: Medical Qualifiers: Chronic kidney disease stage: unspecified stage Qualified Code(s): N18.9 - Chronic kidney disease, unspecified Plan: Avoid NSAIDs, keep well hydrated (6) Coronary artery disease: Comment: [place], circumflex stenting in 2009, unstable angina, LAD stenting in 2011. Persistent significant angina with abnormal stress test leading to 3 vessel coronary artery bypass grafting in 2012 echocardiogram September 2021Normal left ventricular cavity size. There is mildly increased left ventricular wall thickness. The left ventricular systolic function is mildly decreased. The visually estimated ejection fraction is between 40-45%. - E/E prime ratio is between 8 and 15 consistent with indeterminate filling pressures. - The basal inferior and mid inferior segments are akinetic. - Normal right ventricular cavity size and systolic function. Code(s): I25.10 - Atherosclerotic heart disease of [place] coronary artery without angina pectoris Category: Medical Qualifiers: Associated angina: without angina Coronary Disease-Associated Ar fabio/Lesion type: [place] artery [place] vs. transplanted heart: [place] heart Qualified Code(s): I25.10 - Atherosclerotic heart disease of [place] coronary artery without angina pectoris Plan: Control the cholesterol, weight, blood pressure, workup pending continue follow- up with cardiology (7) Hypercholesterolemia: Code(s): E78.00 - Pure hypercholesterolemia, unspecified Category: Medical Plan: Avoid fried foods, chicken skin, eggs, butter margarine, pastries and meat. Be it pork or beef they have a lot of cholesterol on Zetia 10 mg once a day and rosuvastatin 40 mg once a day (8) Alcohol abuse: Code(s): F10.10 - Alcohol abuse, uncomplicated Category: Social Hx Plan: Discussion about cutting down/abstaining from alcohol (9) Colon cancer screening: Code(s): Z12.11 - Encounter for screening for malignant neoplasm of colon Category: Medical Plan: Referral to Gastroenterology for colon cancer screening Orders: Orders Comprehensive Met. Panel 3 Months N18.9 - Chronic kidney disease, unspecified Lipid Panel 3 Months E78.00 - Pure hypercholesterolemia, unspecified Free T4 (Free Thyroxine) 3 Months E78.00 - Pure hypercholesterolemia, unspecified Thyroid Stimulating Hormone 3 Months E78.00 - Pure hypercholesterolemia, unspecified UA CC w/rflx Micro + Cult 3 Months E78.00 - Pure hypercholesterolemia, unspecified, R30.0 - Dysuria Vitamin B12 and Folate 3 Months E78.00 - Pure hypercholesterolemia, unspecified Prostate Specific Antigen Scr 3 Months E78.00 - Pure hypercholesterolemia, unspecified Influenza [id number] Immunization Today Z23 - Encounter for immunization Hemoglobin A1c 3 Months R73.02 - Impaired glucose tolerance (oral) Complete Blood Count Auto Diff 3 Months E78.00 - Pure hypercholesterolemia, unspecified B Type Natriuretic Peptide 3 Months E78.00 - Pure hypercholesterolemia, unspecified Referrals Cologuard Test Z12.11 - Encounter for screening for malignant neoplasm of colon Medications: Refilled fluticasone propion-salmeterol 250-50 mcg/dose (Wixela Inhub) 1 inh inhalation BID 60 ea 12RF J43.1 - Panlobular emphysema
== END 2024-03-15 13:06 | disposition home or self-care (01) ==
LOC: HO.HMCH 12:25
PROVIDERS: PCP Internal Medicine; Visit Provider Internal Medicine
DX: I25.5 Ischemic cardiomyopathy (principal); J43.1 Panlobular emphysema; I12.9 Hypertensive chronic kidney disease with stage 1 through stage 4 chronic kidney disease, or unspecified chronic kidney disease; K21.9 Gastro-esophageal reflux disease without esophagitis; N18.9 Chronic kidney disease, unspecified; I25.10 Atherosclerotic heart disease of native coronary artery without angina pectoris; E78.00 Pure hypercholesterolemia, unspecified; F10.10 Alcohol abuse, uncomplicated; Z12.11 Encounter for screening for malignant neoplasm of colon; Z23 Encounter for immunization

== ENCOUNTER → 2024-03-15 12:24 | Outpatient (BNVA) | payer MEDICARE, SELFPAY | PROVIDERS: PCP Internal Medicine; Visit Provider Internal Medicine | DX: Z23 Encounter for immunization (principal); I25.5 Ischemic cardiomyopathy; I12.9 Hypertensive chronic kidney disease with stage 1 through stage 4 chronic kidney disease, or unspecified chronic kidney disease; N18.9 Chronic kidney disease, unspecified; J43.1 Panlobular emphysema; K21.9 Gastro-esophageal reflux disease without esophagitis; I25.10 Atherosclerotic heart disease of native coronary artery without angina pectoris; E78.00 Pure hypercholesterolemia, unspecified; F10.10 Alcohol abuse, uncomplicated | CPT/HCPCS: 90471; 90656; 96127; 99212 ==

== ENCOUNTER → 2024-04-21 09:43 | Outpatient (REF) | payer MEDICARE, SELFPAY ==
--- NOTE | ~2024-04-21 | NM_ITS ---
Lexiscan Myocardial perfusion study Indication: Ischemic cardiomyopathy Technique: The patient was brought in for a Lexiscan perfusion study on 04/21/2024 and was injected 0.4 mg of Lexiscan intravenously. Within a minute of this injection 30 mCi of sestamibi was given intravenously. Images were obtained using the SPECT gamma camera interlaced with the gating device. Images were obtained in supine position. Resting perfusion study was performed on 04/25/2024. Patient was administered 30 mCi of sestamibi intravenously at rest. Images were then obtained in supine position. Total DLP 112 mGy-cm. Images were processed with the software and compared side to side in short axis, horizontal long axis and vertical long axis views. Findings: Raw aquisition reviewed. Arms by the patient's side. The stress perfusion study showed severely reduced or absent tracer uptake and most anterior wall excluding the base. There is also markedly reduced tracer uptake in the basal to mid part of inferior/inferolateral wall. No major change with CT attenuation correction. The gated study shows reduced LV systolic function with calculated LVEF of 25%. LV cavity is dilated in size. The gated study shows reduced wall thickening and contraction of above segments. Resting study shows markedly reduced or absent tracer uptake in most of the anterior wall with the exception of the base. Markedly reduced or absent tracer uptake in the basal to mid part of inferior/inferolateral wall. Gating at rest reveals reduced contractility the above areas with an LVEF of 31%. The findings are consistent with fixed perfusion defects involving most of the anterior wall with exception of base; the basal part of anterior septum; basal tube mid part of inferior/inferolateral wall. No definitive reversible defects. NM/NM julia perf SPECT rest & str Impression: 1. Myocardial perfusion imaging study shows transmural infarction involving mid to distal part of anterior wall; basal anterior septum; basal to mid part of inferior/inferolateral wall. 2. Gated LVEF is 25% during stress and 31% rest. 3. Transient ischemic dilatation not present, but LV chamber is dilated. EKG component of the test reported separately. Electronically signed by: Eric Lucio MD 04/25/2024 04:20 PM [facility] [place]
--- NOTE | 2024-04-21 09:45 | CA_ITS ---
Acquisition Time: 2024-04-21 09:46:30 Total Exercise Time: 00:02:00 Test Indications: ISCHEMIC CARDIOMYOPATHY Medications: Protocol: LEXISCAN Max HR: 110 BPM 70% of Pred: 156 BPM Max BP: 170/058 mmHG Max Work Load: 1.0 METS Pharmacologic Stress Test with lexiscan while pt marches in his chair, with reports of severe SOB, no chest discomfort, with isolated PVCs, with normotensive response to injection. Nondiagnostic EKG for ischemia. In recovery, pt was treated with IVP Aminophylline 75mg to reverse Lexiscan, after which breathing normalized. Nuclear images pending. Test reviewed with Dr. Gallardo. Referred By: Ian Gallardo Overread By: CYNTHIA MIRAMONTES
--- OUTSIDE RECORDS SUMMARY | 2024-04-21 09:46 | XMS_ITS | Clinical Summary ---
Author Organization Unknown Care Team Providers Care Woods Boss Name Role Phone CHRISTIAN SHAH MD Unavailable Unavailable WHIT ROUSE, CLINICAL CALENDERING SUPERVISOR, GIOVANNI Gordillo available Unavailable Payers Payer Name Policy Type Policy Number Effective Date Expira tion Date MEDICARE - NGS [place] - PDGM [id number] [place] ABN [id number] Problems Condition Name Condition Details Condition Category Status Onset Date Resolution Date Last Treatment Date Treating Clinician Comments COVID-19 Active 01-22 00:00: 00 ACUTE RESPIRATORY FAILURE WITH HYPOXIA Active 01-22 00:00: 00 CHRONIC OBSTRUCTIVE PULMONARY DISEASE W (ACUTE) EXACERBATION Active 01-22 00:00: 00 HYP HRT AND CHR KDNY DIS W HRT FAIL AND STG 1-4/UNSP CHR KDNY Active 01-22 00:00: 00 CHRONIC COMBINED SYSTOLIC AND DIASTOLIC HRT FAIL Active 01-22 00:00: 00 CHRONIC KIDNEY DISEASE, UNSPECIFIED Active 01-22 00:00: 00 OTHER HYPERLIPIDEM IA Active 01-22 00:00: 00 ATHSCL HEART DISEASE OF [place] CORONARY ARTERY W/O ANG PCTRS Active 01-22 00:00: 00 GASTRO-ESOPH AGEAL REFLUX DISEASE WITHOUT ESOPHAGITIS Active 01-22 00:00: 00 OLD MYOCARDIAL INFARCTION Active 01-22 00:00: 00 PRIMARY INSOMNIA Active 01-22 00:00: 00 CUSTODIAL (CURRENT) USE OF SYSTEMIC STEROIDS Active 01-22 00:00: 00 CUSTODIAL (CURRENT) USE OF ASPIRIN Active 01-22 00:00: 00 PRESENCE OF CARDIAC PACEMAKER Active 01-22 00:00: 00 HISTORY OF FALLING Active 01-22 00:00: 00 Allergies, Adverse Reactions, Alerts Allergy Name Allergy Type Status Severity Reaction(s) Onset Date Inactive Date Treating Clinician Comments NKA Propensity to adverse reactions Active 2023-01 21:12:0 2 Medications Ordered Medication Name Filled Medication Name Start Date Stop Date Current Medication? Ordering Clinician Indication Dosage Frequency Signature (SIG) Comments Components amlodipine 5 mg tablet 01-22 00:00: 00 Yes [id number] 1 tablet DAILY 1 tablet DAILY (route: oral) Med Classific ation: Cardiovas cular Therapy Agents aspirin 81 mg tablet,gabe yed release 01-22 00:00: 00 Yes [id number] 1 tablet DAILY 1 tablet DAILY (route: oral) Med Classific ation: Hematolog ical Agents ezetimibe 10 mg tablet 01-22 00:00: 00 Yes [id number] 1 tablet DAILY 1 tablet DAILY (route: oral) Med Classific ation: Cardiovas cular Therapy Agents furosemide 20 mg tablet 01-22 00:00: 00 Yes [id number] 1 tablet DAILY 1 tablet DAILY (route: oral) Med Classific ation: Cardiovas cular Therapy Agents isosorbide mononitrate ER 30 mg tablet,exte nded release 24 hr 01-22 00:00: 00 Yes [id number] 1 tablet NOON 1 tablet NOON (route: oral) Med Classific ation: Cardiovas cular Therapy Agents metoprolol succinate ER 50 mg tablet,exte nded release 24 hr 01-22 00:00: 00 Yes [id number] 1 tablet DAILY 1 tablet DAILY (route: oral) Med Classific ation: Cardiovas cular Therapy Agents omeprazole 20 mg tablet,gabe yed release 01-22 00:00: 00 Yes [id number] 1 tablet 2 TIMES DAILY 1 tablet 2 TIMES DAILY (route: oral) Med Classific ation: Gastroint estinal Therapy Agents prednisone 20 mg tablet 01-22 00:00: 00 Yes [id number] 2 tablet DAILY 2 tablet DAILY (route: oral) Med Classific ation: Endocrine rosuvastati n 40 mg tablet 01-22 00:00: 00 Yes [id number] 1 tablet NOON 1 tablet NOON (route: oral) Med Classific ation: Cardiovas cular Therapy Agents Vital Signs Vital Name Observation Time Observation Value Commen ts Temperature 2023-02-02 13:57:00.000 97.1 [degF] Temperature 2023-01-30 09:44:00.000 97 [degF] Temperature 2023-01-27 12:16:00.000 98.4 [degF] Temperature 2023-01-22 10:24:00.000 97.8 [degF] BMI (%) 2023-01-22 10:24:00.000 26 kg/m2 Height 2023-01-22 10:24:00.000 71 [in_us] Pulse 2023-02-02 13:57:00.000 67 /min Pulse 2023-01-30 09:44:00.000 70 /min Pulse 2023-01-27 12:16:00.000 71 /min Pulse 2023-01-22 10:24:00.000 76 /min O2 Saturation (%) 2023-02-02 13:57:00.000 97 % O2 Saturation (%) 2023-01-30 09:44:00.000 96 % O2 Saturation (%) 2023-01-27 12:16:00.000 96 % O2 Saturation (%) 2023-01-22 10:24:00.000 94 % Respirations 2023-02-02 13:57:00.000 15 /min Respirations 2023-01-30 09:44:00.000 20 /min Respirations 2023-01-27 12:16:00.000 18 /min Respirations 2023-01-22 10:24:00.000 18 /min Weight (lbs) 2023-01-30 09:44:00.000 189 [lb_av] Weight (lbs) 2023-01-27 12:17:00.000 190 [lb_av] Weight (lbs) 2023-01-22 10:24:00.000 190 [lb_av] Systolic Blood Pressure 2023-02-02 13:57:00.000 138 mm [Hg] Systolic Blood Pressure 2023-01-30 09:44:00.000 110 mm [Hg] Systolic Blood Pressure 2023-01-27 12:16:00.000 112 mm [Hg] Systolic Blood Pressure 2023-01-22 10:24:00.000 130 mm [Hg] Diastolic Blood Pressure 2023-02-02 13:57:00.000 72 mm [Hg] Diastolic Blood Pressure 2023-01-30 09:44:00.000 60 mm [Hg] Diastolic Blood Pressure 2023-01-27 12:16:00.000 62 mm [Hg] Diastolic Blood Pressure 2023-01-22 10:24:00.000 68 mm [Hg] Plan of Treatment Planned Activity Planned Date Details Comments Future Scheduled Test SKILLED NU RSE TO EVALUATE PATIENT, IDENTIFY PRIMARY AND CO-MORBID CONDITIONS CODED PER CODING GUIDELINES, AND DEVELOP PATIENT SPECIFIC PLAN OF CARE THAT INCLUDES PATIENT GOAL FOR HOME HEALTH. [code = SKILLED NURSE TO EVALUATE PATIENT, IDENTIFY PRIMARY AND CO-MORBID CONDITIONS CODED PER CODING GUIDELINES, AND DEVELOP PATIENT SPECIFIC PLAN OF CARE THAT INCLUDES PATIENT GOAL FOR HOME HEALTH.] Future Scheduled Test PATIENT DÍAZ S A RISK OF HOSPITALIZATION AND ED USE. SKILLED NURSE TO ESTABLISH SUPPORT MEASURES TO MINIMIZE RISK OF HOSPITALIZATION AND ED USE, AND INSTRUCT PATIENT/CAREGIVER ON METHODS TO REDUCE AVOIDABLE HOSPITALIZATION AND ED USE. [code = PATIENT HAS A RISK OF HOSPITALIZATION AND ED USE. SKILLED NURSE TO ESTABLISH SUPPORT MEASURES TO MINIMIZE RISK OF HOSPITALIZATION AND ED USE, AND INSTRUCT PATIENT/CAREGIVER ON METHODS TO REDUCE AVOIDABLE HOSPITALIZATION AND ED USE.] Future Scheduled Test SKILLED NU RSE TO PROVIDE INSTRUCTION TO PATIENT/CAREGIVER RELATED TO DISCHARGE PLANNING. [code = SKILLED NURSE TO PROVIDE INSTRUCTION TO PATIENT/CAREGIVER RELATED TO DISCHARGE PLANNING.] Future Scheduled Test SKILLED NU RSE TO PERFORM HOME SAFETY AND FALL ASSESSMENT AND PROVIDE INSTRUCTION TO IMPLEMENT HOME SAFETY AND FALL PREVENTION STRATEGIES. [code = SKILLED NURSE TO PERFORM HOME SAFETY AND FALL ASSESSMENT AND PROVIDE INSTRUCTION TO IMPLEMENT HOME SAFETY AND FALL PREVENTION STRATEGIES.] Future Scheduled Test SKILLED NU RSE FOR OBSERVATION AND ASSESSMENT OF PATIENTS PAIN LEVEL AND EFFECTIVENESS OF PAIN MANAGEMENT REGIMEN. SKILLED NURSE TO INSTRUCT PATIENT/CAREGIVER REGARDING PHARMACOLOGIC AND NON-PHARMACOLOGIC PAIN CONTROL MEASURES. SKILLED NURSE TO REPORT TO PHYSICIAN IF PAIN IS UNCONTROLLED WITH CURRENT PAIN MANAGEMENT REGIMEN. [code = SKILLED NURSE FOR OBSERVATION AND ASSESSMENT OF PATIENTS PAIN LEVEL AND EFFECTIVENESS OF PAIN MANAGEMENT REGIMEN. SKILLED NURSE TO INSTRUCT PATIENT/CAREGIVER REGARDING PHARMACOLOGIC AND NON-PHARMACOLOGIC PAIN CONTROL MEASURES. SKILLED NURSE TO REPORT TO PHYSICIAN IF PAIN IS UNCONTROLLED WITH CURRENT PAIN MANAGEMENT REGIMEN.] Future Scheduled Test SKILLED NU RSE TO PROVIDE TEACHING ON SIGNS AND SYMPTOMS AND MANAGEMENT OF HYPERTENSION. [code = SKILLED NURSE TO PROVIDE TEACHING ON SIGNS AND SYMPTOMS AND MANAGEMENT OF HYPERTENSION.] Future Scheduled Test SKILLED NU RSE FOR INSTRUCTION/ REINFORCEMENT OF NEEDS RELATED TO NUTRITION/HYDRATION. [code = SKILLED NURSE FOR INSTRUCTION/ REINFORCEMENT OF NEEDS RELATED TO NUTRITION/HYDRATION.] Future Scheduled Test SKILLED NU RSE TO REVIEW PATIENT MEDICATIONS. INSTRUCT PATIENT/CAREGIVER ON MONITORING OF EFFECTIVENESS, ADVERSE DRUG REACTIONS, SIDE EFFECTS OF ALL MEDICATIONS (PRESCRIPTION/-OTC), AND HOW AND WHEN TO REPORT PROBLEMS. [code = SKILLED NURSE TO REVIEW PATIENT MEDICATIONS. INSTRUCT PATIENT/CAREGIVER ON MONITORING OF EFFECTIVENESS, ADVERSE DRUG REACTIONS, SIDE EFFECTS OF ALL MEDICATIONS (PRESCRIPTION/-OTC), AND HOW AND WHEN TO REPORT PROBLEMS.] Future Scheduled Test SKILLED NU RSE TO ASSESS PATIENT'S SKIN INTEGRITY AND INSTRUCT PATIENT/CAREGIVER ON MEASURES TO PREVENT PRESSURE ULCERS [code = SKILLED NURSE TO ASSESS PATIENT'S SKIN INTEGRITY AND INSTRUCT PATIENT/CAREGIVER ON MEASURES TO PREVENT PRESSURE ULCERS] Future Scheduled Test SKILLED NU RSE FOR O/A, TEACHING RELATED TO GERD FOR EARLY IDENTIFICATION OF EXACERBATION OF DISEASE PROCESS. [code = SKILLED NURSE FOR O/A, TEACHING RELATED TO GERD FOR EARLY IDENTIFICATION OF EXACERBATION OF DISEASE PROCESS.] Future Scheduled Test SKILLED NU RSE FOR O/A OFCOVID TO IDENTIFY CHANGES ASSOCIATED WITH EXACERBATION FOR EARLY INTERVENTION OF COMPLICATIONS. [code = SKILLED NURSE FOR O/A OFCOVID TO IDENTIFY CHANGES ASSOCIATED WITH EXACERBATION FOR EARLY INTERVENTION OF COMPLICATIONS.] Future Scheduled Test SKILLED NU RSE FOR O/A, TEACHING, AND MANAGEMENT OF CAD WITH SD. [code = SKILLED NURSE FOR O/A, TEACHING, AND MANAGEMENT OF CAD WITH SD.] Future Scheduled Test SKILLED NU RSE FOR O/A, TEACHING AND MANAGEMENT OF CKD FOR EARLY IDENTIFICATION OF EXACERBATION OF DISEASE PROCESS [code = SKILLED NURSE FOR O/A, TEACHING AND MANAGEMENT OF CKD FOR EARLY IDENTIFICATION OF EXACERBATION OF DISEASE PROCESS] Future Scheduled Test SKILLED NU RSE TO ASSESS PATIENT'S SKIN INTEGRITY AND INSTRUCT PATIENT/CAREGIVER ON MEASURES TO PREVENT PRESSURE ULCERS [code = SKILLED NURSE TO ASSESS PATIENT'S SKIN INTEGRITY AND INSTRUCT PATIENT/CAREGIVER ON MEASURES TO PREVENT PRESSURE ULCERS] Goal 2023-02-02 Patient Goal - G AIN MY USUAL STRENGTH AND FEEL BETTER Goal Provider Goal - A PLAN OF CARE WILL BE ESTABLISHED THAT MEETS PATIENT'S FDC NEEDS AND INCLUDES PATIENT GOAL FOR HOME HEALTH. Goal Provider Goal - PATIENT WILL HAVE SUPPORT MEASURES ESTABLISHED TO PREVENT HOSPITALIZATION AND ED USE AND PATIENT/CAREGIVER WILL VERBALIZE/DEMONSTRATE METHODS TO REDUCE AVOIDABLE HOSPITALIZATION AND ED USE BY END OF EPISODE. Goal Provider Goal - PATIENT/CAREGIVER WILL VERBALIZE UNDERSTANDING OF DISCHARGE PLANNING INSTRUCTIONS BY DATE OF DISCHARGE. Goal Provider Goal - PATIENT/CAREGIVER WILL VERBALIZE/DEMONSTRATE EFFECTIVE HOME SAFETY AND FALL PREVENTION STRATEGIES THROUGHOUT CERTIFICATION PERIOD. Goal Provider Goal - PATIENT/CAREGIVER WILL DEMONSTRATE UNDERSTANDING OF PHARMACOLOGIC AND NONPHARMACOLOGIC PAIN CONTROL MEASURES AND PATIENT WILL HAVE IMPROVEMENT IN PAIN INTERFERING WITH ACTIVITY EVIDENCED BY PAIN CONTROLLED AT LEVEL OF 0 BY END OF CERTIFICATION PERIOD. Goal Provider Goal - PATIENT/CAREGIVER WILL VERBALIZE SIGNS AND SYMPTOMS OF HYPERTENSION AND WILL BE ABLE TO DEMONSTRATE ABILITY TO MANAGE EXACERBATION BY END OF THE EPISODE. Goal Provider Goal - PATIENT/CAREGIVER WILL DEMONSTRATE ABILITY TO SELF MANAGE NEEDS RELATED TO NUTRITION/HYDRATION THROUGHOUT THE EPISODE. Goal Provider Goal - PATIENT/CAREGIVER WILL VERBALIZE UNDERSTANDING OF EDUCATION PROVIDED ON MEDICATIONS BY THE END OF THE CERTIFICATION PERIOD. Goal Provider Goal - PATIENT/CAREGIVER WILL VERBALIZE UNDERSTANDING OF PRESSURE ULCER PREVENTION BY END OF THE EPISODE. Goal Provider Goal - EXACERBATIONS OF GASTROINTESTINAL DISEASE WILL BE PROMPTLY IDENTIFIED AND INTERVENTIONS IMPLEMENTED TO MINIMIZE RISKS TO PATIENT BY END OF EPISODE. Goal Provider Goal - CHANGES IN RESPIRATORY STATUS WILL BE IDENTIFIED AND REPORTED TO PHYSICIAN FOR PROMPT INTERVENTION TO MINIMIZE ASSOCIATED RISKS THROUGHOUT THE CERTIFICATION PERIOD. Goal Provider Goal - PATIENT/CAREGIVER WILL VERBALIZE/DEMONSTRATE MANAGEMENT OF CARDIAC DISEASE PROCESS AND EXACERBATIONS WILL BE IDENTIFIED AND PROMPTLY REPORTED THROUGHOUT THE CERTIFICATION PERIOD. Goal Provider Goal - PATIENT/CAREGIVER WILL VERBALIZE UNDERSTANDING OF GENITOURINARY DISEASE PROCESS, AND EXACERBATIONS OF GENITOURINARY DISEASE WILL BE PROMPTLY IDENTIFIED FOR EARLY INTERVENTION THROUGHOUT THE CERTIFICATION PERIOD. Goal Provider Goal - PATIENT/CAREGIVER WILL VERBALIZE UNDERSTANDING OF PRESSURE ULCER PREVENTION BY END OF THE EPISODE. Reason for Visit INDEPENDENT IN THE COMMUNITY Encounters Start Date/Time End Date/Time Encounter Type Admission Type Attending [facility] Care Department Encounter ID Discharge Date Discharge Status Discharge Condition Discharge Reason Percent Goals Met 2023-01-22 00:00:00 2023-02-02 00:00:00 Outpatient NEW ADMISSION GIOVANNI SHERMAN [facility] [id number] 2023-02-02 00:00:00 DISCHARGE TO HOME OR SELF CARE INDEPENDEN T IN THE COMMUNITY GOALS MET ( ONLY) 100.00
== END ==
LOC: HO.CARD 09:43
PROVIDERS: PCP Internal Medicine; Visit Provider Internal Medicine Cardiovascular Disease
DX: I25.5 Ischemic cardiomyopathy (principal)
CPT/HCPCS: 78452; 93017; A9500; J0280; J2785

== ENCOUNTER → 2024-04-21 09:45 | Outpatient (BNV) | payer MEDICARE, SELFPAY | PROVIDERS: PCP Internal Medicine; Visit Provider Nurse Practitioner Family | DX: R06.02 Shortness of breath (principal); I49.3 Ventricular premature depolarization | CPT/HCPCS: 78452; 93016; 93018 ==

== ENCOUNTER 2024-05-23 12:31 | Outpatient (AMB) | payer MEDICARE, SELFPAY ==
[2024-05-23 12:46] VITALS: BP 120/76; PULSE 79; BMI 27.7
--- NOTE | 2024-05-23 12:46 | A.OFFVIS_ITS ---
Vital Signs 05/23/24 12:46 Height 5 ft 11 in Weight 198 lb 6.656 oz BMI 27.7 BP 120/76 Blood Pressure Location Lt brachial Position Sitting Pulse 79 Intake Visit Reasons: 3 mth f/up konstantin Intake Note: 3 month follow-up after stress test feeling good Media Relations Coordinator Required: No Allergies ARB-Angiotensin Receptor Antagonist Adverse Reaction (Severe, Verified 03/15/24 12:33) [place] MALVIN Inhibitors Adverse Reaction (Intermediate, Verified 03/15/24 12:33) [place] Medication List - Last Reconciled 05/23/24 by Ian Gallardo MD albuterol sulfate 90 mcg/actuation (Ventolin HFA) 2 puffs inhalation Q6H PRN amlodipine 5 mg PO DAILY aspirin 81 mg PO DAILY ezetimibe 10 mg PO DAILY fluticasone propion-salmeterol 250-50 mcg/dose (Wixela Inhub) 1 inh inhalation BID furosemide (Lasix) 20 mg PO DAILY isosorbide mononitrate ER 30 mg PO DAILY 90 days metoprolol succinate ER 50 mg PO DAILY 90 days omeprazole 20 mg PO BID@0630,1630 rosuvastatin 40 mg PO DAILY 90 days HPI Comments Details: Johnny comes for follow-up. He has no new symptoms. His myocardial perfusion imaging showed mostly infarcted myocardium in both LAD and circumflex territory. No clear ischemia. His LV ejection fraction was noted to be in the 30% range. He denies any orthopnea, PND, leg edema. Has stopped nicotine smoking but smokes weed. Drinks about 6 pack of beer every day. Taking all his medications. In the past he has not been able to tolerate angiotensin receptor angel due to acute kidney injury. Denies any prolonged palpitation irregular heartbeat. Takes all his medications. No lightheadedness, syncope. [facility] Medical History Colon cancer screening Obesity (BMI 30-39.9) Tobacco abuse Heart failure with reduced ejection fraction Adult general medical exam Screening for prostate cancer Ischemic cardiomyopathy Colonoscopy refused Umbilical hernia COPD (chronic obstructive pulmonary disease) Coronary artery disease GERD (gastroesophageal reflux disease) Hypercholesterolemia Insomnia Hypertension Surgical History Hx of CABG Family History Father No problems noted. Mother No problems noted. Sister No problems noted. Sister No problems noted. Brother No problems noted. Brother Myocardial infarct Liver cancer Social History Household Members: Other Household Members Other:: brother Housing: House Do you presently have visiting nurse or other home services: Yes Alcohol intake: former Patient Tobacco Use Status: Former Tobacco user Tobacco use type: Cigarette Cigarettes Per Day: 10 e-Cigarette/Vaping Use: Never Used Second Hand Smoke Exposure: No Substance Use Type: Marijuana Advance Directives Date on File: 02/16/20 service: No Current occupational status: disabled Cognitive needs: No Hearing needs: No Vision needs: Yes Review of Systems Const Denies chills, Denies fatigue, Denies fever(s), Denies frequent falls, Denies weakness, Denies weight gain and Denies weight loss ENT Denies dizziness Card Denies chest pain, Denies leg edema, Denies lightheadedness, Denies palpitations, Denies dyspnea, Denies dyspnea on exertion, Denies orthopnea and Denies other (loss of consciousness) Resp Denies cough, Denies dyspnea and Denies dyspnea on exertion GI Denies hematochezia and Denies change in stool character Musc Denies abnormal gait, Denies muscle weakness, Denies numbness, Denies radiating pain into limb and Denies tingling Neuro Denies Abnormal speech present, Denies abnormal gait, Denies dizziness, Denies frequent falls, Denies numbness, Denies tingling and Denies weakness Endo Denies fatigue and Denies palpitations Physical Exam Vital Signs: Last Vital Signs Pulse 79 05/23/24 12:46 BP 120/76 05/23/24 12:46 BMI result Body Mass Index 27.7 Const General: cooperative, comfortable, no acute distress, alert and awake Nutritional Appearance: overweight Orientation/consciousness: patient oriented x3 Limitations: no limitations HEENT Head: Yes atraumatic Neck Neck: Yes trachea midline, Yes supple and Yes no JVD Carotids: no bruits Chest Chest palpation & inspection: normal inspection of the chest Resp Effort & Inspection: normal respiratory effort Auscultation: clear to auscultation bilaterally, no rales, wheezes scattered wheezes and diminished lung sounds Cardio Jugular venous distension: no JVD Palpation: normal PMI Rate: regular rate Rhythm: regular rhythm Heart sounds: S1 normal heart sound present, S2 normal heart sound present, no click, no gallops, no murmurs and no rubs GI Auscultation: normal bowel sounds Skin General skin exam: no rashes or lesions noted Neuro General: patient oriented x3 and no focal motor deficits Speech: No Abnormal speech present Extrem General: Yes no clubbing, cyanosis or edema and Yes pedal edema Psych Appearance: grossly normal Assessment & Plan Assessment & Plan (1) Ischemic cardiomyopathy: Code(s): I25.5 - Ischemic cardiomyopathy Category: Medical Plan: Severe ischemic cardiomyopathy in this middle-aged to elderly gentleman with prior history of CAD remotely with recently declining LV ejection fraction concerning for graft closure versus progressive coronary artery disease. Recommend cardiac catheterization to evaluate for graft as well as inaja coronary anatomy to see if there is any targets for revascularization. Other steele medical therapy with pursued which is limited. Advised to reduce alcohol ingestion. Continue aggressive blood pressure control on current therapy with metoprolol and isosorbide as well as amlodipine therapy. Can not use renin angiotensin antagonist due to prior history of acute kidney injury with both most likely suggestive of renovascular disease. There is no overt heart failure syndrome on hold off on hydralazine therapy as a blood pressure is well controlled. Overall prognosis guarded. If there is no significant revascularization target will refer to EPS for possible consideration for ICD placement. Currently on low-dose Lasix therapy which will be continued. Signs and symptoms of heart failure were discussed. Avoidance of salt loading was discussed. (2) Coronary artery disease: Comment: [place], circumflex stenting in 2009, unstable angina, LAD stenting in 2011. Persistent significant angina with abnormal stress test leading to 3 vessel coronary artery bypass grafting in 2012 echocardiogram September 2021Normal left ventricular cavity size. There is mildly increased left ventricular wall thickness. The left ventricular systolic function is mildly decreased. The visually estimated ejection fraction is between 40-45%. - E/E prime ratio is between 8 and 15 consistent with indeterminate filling pressures. - The basal inferior and mid inferior segments are akinetic. - Normal right ventricular cavity size and systolic function. Code(s): I25.10 - Atherosclerotic heart disease of inaja coronary artery without angina pectoris Category: Medical Qualifiers: Associated angina: without angina Coronary Disease-Associated Artery/Lesion type: in[place] artery [place] vs. transplanted heart: inaja heart Qualified Code(s): I25.10 - Atherosclerotic heart disease of in[place] coronary artery without angina pectoris Plan: CAD with premature atherosclerosis with significant progressive atherosclerotic disease. Smoking cessation was applauded. Continue current medical therapy. Continue dual therapy with high-intensity statin as well as ezetimibe therapy. Target goal LDL closer to 50 mg/dL. Blood pressure is currently well optimized. Will follow up in the clinic in 4 weeks time, sooner p.r.n.. Thank you for allowing me to partake in his care Orders: Orders Cardiac Cath w Graft 2 Weeks I25.5 - Ischemic cardiomyopathy Prothrombin Time INR Today I25.5 - Ischemic cardiomyopathy Complete Blood Count no Diff Today I25.5 - Ischemic cardiomyopathy Lipid Panel Today I25.10 - Atherosclerotic heart disease of inaja coronary ar fabio without angina pectoris, I25.5 - Ischemic cardiomyopathy Basic Metabolic Panel Today I25.5 - Ischemic cardiomyopathy Coding Level of Care Code Est Pt Level 4 (18613) Complex EM visit Add On G2211 Diagnoses Ischemic cardiomyopathy I25.5 Coronary artery disease involving inaja coronary artery of inaja heart without angina pectoris I25.10 Associated angina: without angina Coronary Disease-Associated Artery/Lesion type: in[place] artery [place] vs. transplanted heart: inaja heart
--- OUTSIDE RECORDS SUMMARY | 2024-05-23 14:42 | XMS_ITS | Clinical Summary ---
Author Organization Unknown Care Team Providers Care Brick Setter Operator Name Role Phone CHRISTIAN SHAH MD Unavailable Unavailable WHIT ROUSE, CLINICAL SURVEY ANALYST, GIOVANNI Gordillo available Unavailable Payers Payer Name Policy Type Policy Number Effective Date Expira tion Date MEDICARE - [place] - PDGM [id number] [place] [id number] Problems Condition Name Condition Details Condition Category [...] 01-22 00:00: 00 ATHSCL HEART DISEASE OF [place] CORONARY ARTERY W/O ANG PCTRS Active 01-22 00:00: 00 GASTRO-ESOPH AGEAL REFLUX DISEASE WITHOUT ESOPHAGITIS Active 01-22 00:00: 00 OLD MYOCARDIAL INFARCTION Active 01-22 00:00: 00 PRIMARY INSOMNIA Active 01-22 00:00: 00 DRAGLINE MECHANIC (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) USE OF SYSTEMIC STEROIDS Active 01-22 00:00: 00 DRAGLINE MECHANIC (CURRENT) USE OF ASPIRIN Active 01-22 00:00: [...] 5 mg tablet 01-22 00:00: 00 Yes [id number] 1 tablet DAILY 1 tablet DAILY (route: oral) Med Classific ation: Cardiovas cular Therapy Agents aspirin 81 mg tablet,gabe yed release 01-22 00:00: 00 Yes [id number] 1 tablet DAILY 1 tablet DAILY (route: oral) Med Classific ation: Hematolog ical Agents ezetimibe 10 mg tablet 01-22 00:00: 00 Yes [id number] 1 tablet DAILY 1 tablet DAILY (route: oral) Med Classific ation: Cardiovas cular Therapy Agents furosemide 20 mg tablet 01-22 00:00: 00 Yes [id number] 1 tablet DAILY 1 tablet DAILY (route: oral) Med Classific ation: Cardiovas cular Therapy Agents isosorbide mononitrate ER 30 mg tablet,exte nded release 24 hr 01-22 00:00: 00 Yes [id number] 1 tablet NOON 1 tablet NOON (route: oral) Med Classific ation: Cardiovas cular Therapy Agents metoprolol succinate ER 50 mg tablet,exte nded release 24 hr 01-22 00:00: 00 Yes [id number] 1 tablet DAILY 1 tablet DAILY (route: oral) Med Classific ation: Cardiovas cular Therapy Agents omeprazole 20 mg tablet,gabe yed release 01-22 00:00: 00 Yes [id number] 1 tablet 2 TIMES DAILY 1 tablet 2 TIMES DAILY (route: oral) Med Classific ation: Gastroint estinal Therapy Agents prednisone 20 mg tablet 01-22 00:00: 00 Yes [id number] 2 tablet DAILY 2 tablet DAILY (route: oral) Med Classific ation: Endocrine rosuvastati n 40 mg tablet 01-22 00:00: 00 Yes [id number] 1 tablet NOON 1 tablet NOON (route: [...] O/A, TEACHING, AND MANAGEMENT OF CAD WITH [place]. [code = SKILLED NURSE FOR O/A, TEACHING, AND MANAGEMENT OF CAD WITH [place].] Future Scheduled Test SKILLED NU RSE FOR [...] CARE WILL BE ESTABLISHED THAT MEETS PATIENT'S CORRECTION NEEDS AND INCLUDES PATIENT GOAL FOR HOME [...] End Date/Time Encounter Type Admission Type Attending [facility] Care Department Encounter ID Discharge Date Discharge Status Discharge Condition Discharge Reason Percent Goals Met 2023-01-22 00:00:00 2023-02-02 00:00:00 Outpatient NEW ADMISSION GIOVANNI SHERMAN [facility] [id number] 2023-02-02 00:00:00 DISCHARGE TO HOME OR SELF CARE INDEPENDEN T IN THE COMMUNITY GOALS MET ( ONLY) 100.00
--- OUTSIDE RECORDS SUMMARY | 2024-05-23 14:42 | XMS_ITS | Clinical Summary ---
Author Organization Unknown Care Team Providers Care Plant Utility Person Name Role Phone CHRISTIAN SHAH MD Unavailable Unavailable WHIT ROUSE, CLINICAL CASTING SUPERVISOR, GIOVANNI Gordillo available Unavailable Payers Payer Name Policy Type Policy Number Effective Date Expira tion Date MEDIC[place] [id number] [place] [id number] Problems Condition Name Condition Details Condition Category [...] 01-22 00:00: 00 ATHSCL HEART DISEASE OF [place] CORONARY ARTERY W/O ANG PCTRS Active 01-22 00:00: 00 GASTRO-ESOPH AGEAL REFLUX DISEASE WITHOUT ESOPHAGITIS Active 01-22 00:00: 00 OLD MYOCARDIAL INFARCTION Active 01-22 00:00: 00 PRIMARY INSOMNIA Active 01-22 00:00: 00 ANALYTICAL DATA SCIENTIST (CURRENT) USE OF SYSTEMIC STEROIDS Active 01-22 00:00: 00 ANALYTICAL DATA SCIENTIST (CURRENT) USE OF ASPIRIN Active 01-22 00:00: [...] 5 mg tablet 01-22 00:00: 00 Yes [id number] 1 tablet DAILY 1 tablet DAILY (route: oral) Med Classific ation: Cardiovas cular Therapy Agents aspirin 81 mg tablet,gabe yed release 01-22 00:00: 00 Yes [id number] 1 tablet DAILY 1 tablet DAILY (route: oral) Med Classific ation: Hematolog ical Agents ezetimibe 10 mg tablet 01-22 00:00: 00 Yes [id number] 1 tablet DAILY 1 tablet DAILY (route: oral) Med Classific ation: Cardiovas cular Therapy Agents furosemide 20 mg tablet 01-22 00:00: 00 Yes [id number] 1 tablet DAILY 1 tablet DAILY (route: oral) Med Classific ation: Cardiovas cular Therapy Agents isosorbide mononitrate ER 30 mg tablet,exte nded release 24 hr 01-22 00:00: 00 Yes [id number] 1 tablet NOON 1 tablet NOON (route: oral) Med Classific ation: Cardiovas cular Therapy Agents metoprolol succinate ER 50 mg tablet,exte nded release 24 hr 01-22 00:00: 00 Yes [id number] 1 tablet DAILY 1 tablet DAILY (route: oral) Med Classific ation: Cardiovas cular Therapy Agents omeprazole 20 mg tablet,gabe yed release 01-22 00:00: 00 Yes [id number] 1 tablet 2 TIMES DAILY 1 tablet 2 TIMES DAILY (route: oral) Med Classific ation: Gastroint estinal Therapy Agents prednisone 20 mg tablet 01-22 00:00: 00 Yes [id number] 2 tablet DAILY 2 tablet DAILY (route: oral) Med Classific ation: Endocrine rosuvastati n 40 mg tablet 01-22 00:00: 00 Yes [id number] 1 tablet NOON 1 tablet NOON (route: [...] O/A, TEACHING, AND MANAGEMENT OF CAD WITH [place]. [code = SKILLED NURSE FOR O/A, TEACHING, AND MANAGEMENT OF CAD WITH [place].] Future Scheduled Test SKILLED NU RSE FOR [...] CARE WILL BE ESTABLISHED THAT MEETS PATIENT'S FCI NEEDS AND INCLUDES PATIENT GOAL FOR HOME [...] End Date/Time Encounter Type Admission Type Attending [facility] Care Department Encounter ID Discharge Date Discharge Status Discharge Condition Discharge Reason Percent Goals Met 2023-01-22 00:00:00 2023-02-02 00:00:00 Outpatient NEW ADMISSION GIOVANNI SHERMAN [facility] [id number] 2023-02-02 00:00:00 DISCHARGE TO HOME OR SELF CARE INDEPENDEN T IN THE COMMUNITY GOALS MET ( ONLY) 100.00
== END 2024-05-23 13:17 | disposition home or self-care (01) ==
PROVIDERS: PCP Internal Medicine; Visit Provider Internal Medicine Cardiovascular Disease
DX: I25.5 Ischemic cardiomyopathy (principal); I25.10 Atherosclerotic heart disease of native coronary artery without angina pectoris
CPT/HCPCS: 99214; G2211

== ENCOUNTER → 2024-05-23 12:31 | Outpatient (BNVA) | payer MEDICARE, SELFPAY | PROVIDERS: PCP Internal Medicine; Visit Provider Internal Medicine Cardiovascular Disease | DX: I25.5 Ischemic cardiomyopathy (principal); I25.10 Atherosclerotic heart disease of native coronary artery without angina pectoris | CPT/HCPCS: 99212 ==

== ENCOUNTER 2024-05-29 09:48 | Emergency (ER) | payer MEDICARE, SELFPAY ==
[2024-05-29] VITALS (7 sets, daily range): BP systolic 141–169; BP diastolic 60–96; PULSE 78–98; RESP 19–22; TEMP 36.6–36.7; O2SAT 85–97; BMI 33.8
--- NOTE | 2024-05-29 | ECG_ITS ---
Test Reason : SOB Blood Pressure : */* mmHG Vent. Rate : 87 BPM Atrial Rate : 87 BPM P-R Int : 166 ms QRS Dur : 144 ms QT Int : 410 ms P-R-T Axes : 78 71 72 degrees QTcB Int : 493 ms Normal sinus rhythm Right bundle branch block Inferior infarct (cited on or before 19-Jan-2023) Abnormal ECG When compared with ECG of 19-Jan-2023 17:02, Aberrant conduction is no longer Present Referred By: Generic ED Physician Electronically Signed By: CAM LOPEZ MD
--- NOTE | ~2024-05-29 | XR_ITS ---
CLINICAL HISTORY: dyspnea 2 view chest x-ray Comparison: CR/SR - XR CHEST 2V - 01/19/23 12:54 EDT Findings: Chronic left pleural reaction unchanged. Heart size is normal. No acute fracture. The patient is status post median sternotomy. IMPRESSION: 1. No acute findings. This document has been electronically signed by: Jacob Vanessa MD on 05/29/2024 11:59:42
[2024-05-29] MEDS: Albuterol Sulfate 5 MG, Albuterol/Iprat 2.5/0.5MG 3 ML 3 ML INHALE (10:04)
[2024-05-29 10:55] LABS: MANUAL DIFF FLAG NO
[2024-05-29 11:00] LABS: Basophils Percent Auto 0.3 % (0-2); Eosinophils Absolute Auto 0.1 X10*3/uL (0.0-0.4); Hematocrit 47.2 % (42.0-52.0); Hemoglobin 15.9 g/dl (14.0-18.0); Imm Gran Abs Auto 0.01 X10*3/uL (0.00-0.03); Imm Gran Pct Auto 0.2 % (0.0-0.4); Lymphocytes Absolute Auto 1.6 X10*3/uL (1.2-4.9); Lymphocytes Percent Auto 26.1 % (20-40); Mean Corpuscular HGB Conc 33.7 g/dl (31.0-36.0); Mean Corpuscular Hemoglobin 32.5 pg (27.0-33.0); Mean Corpuscular Volume 96.5 fL (80.0-98.0); Mean Platelet Volume 10.1 fL (9.4-12.4); Monocytes Absolute Auto 0.6 X10*3/uL (0.1-1.2); Monocytes Percent Auto 9.4 % (2-11); Neutrophils Absolute Auto 3.8 x10*3/uL (2.0-8.3); Platelet Count 159 X10*3/uL (160-400); Red Blood Count 4.89 X10*6/uL (4.60-5.80); Red Cell Distribution Width 12.8 % (11.0-16.0); White Blood Count 6.1 X10*3/uL (4.8-10.8)
[2024-05-29 11:06] LABS: INTERNATIONAL NORM RATIO 1.1 (0.9-1.1); Prothrombin Time 12.6 SEC (10.9-12.4)
[2024-05-29 11:17] LABS: Alanine Aminotransferase 40 U/L (0-40); Albumin Level 4.1 g/dL (3.5-5.0); Alkaline Phosphatase 89 U/L (39-117); Anion Gap 14 (12-20); Aspartate Amino Transferase 51 U/L (5-37); Bilirubin Total 0.6 mg/dL (0.0-1.0); Blood Urea Nitrogen 13 mg/dL (9-16); Calcium 9.2 mg/dL (8.4-10.2); Carbon Dioxide 28 mmol/L (22-29); Chloride 101 mmol/L (96-108); Creatinine Clr Calc Pharmacy 92.4; Estimated Glomerular Filt Rate > 60; Glucose Random 125 mg/dL (60-115); Magnesium 2.1 mg/dL (1.6-2.6); Sodium 139 mmol/L (135-145); Total Protein 7.9 g/dL (6.5-8.0)
[2024-05-29 11:18] LABS: Troponin-I High Sensitivity 20.4 ng/L (<3.5-35.0)
--- NOTE | 2024-05-29 11:18 | ED.SOB ---
HPI - SOB/Dyspnea General Chief Complaint: Dyspnea Stated Complaint: SOB X 3 DAYS Time Seen by Provider: 05/29/24 11:14 Source: patient and EMS Mode of arrival: EMS Limitations: no limitations History of Present Illness ED Provider: Amita Cordero APRN HPI Narrative: 63 yo male with past medical history No artery disease, CKD, COPD, congestive heart failure presents to the emergency room with complaints of cough for 4 days with shortness of breath today. Patient reports initially he had a runny nose and sore throat with a cough that was productive. He bought some [id number] cough medicine and these symptoms seemed to improve. However today he had shortness of breath and wheezing which was unrelieved with his home albuterol. Patient denies any associated chest pain, leg swelling, leg pain, fevers, chills, vomiting, diarrhea or abdominal pain. He denies any recent travel or hospitalizations. He denies any sick contact. He is a former smoker (>2yrs ago) Per EMS patient RA saturation was 85%. Patient received a DuoNeb with EMS and 10 mg of albuterol on arrival Related Data Home Medications ?Medication ?Instructions ?Recorded ?Confirmed aspirin 81 mg tablet,delayed 81 mg PO DAILY 09/10/21 05/23/24 release Previous Rx's ?Medication ?Instructions ?Recorded isosorbide mononitrate 30 mg 30 mg PO DAILY 90 days #90 tabs 09/08/23 tablet,extended release 24 hr metoprolol succinate 50 mg 50 mg PO DAILY 90 days #90 tabs 10/16/23 tablet,extended release 24 hr furosemide 20 mg tablet (Lasix) 20 mg PO DAILY #30 tabs 03/03/24 albuterol sulfate 90 mcg/actuation 2 puff inhalation Q6H PRN 03/08/24 aerosol inhaler (Ventolin HFA) shortness of breath or wheezing #8.5 grams fluticasone 250 mcg-salmeterol 50 1 inh inhalation BID #60 ea 03/15/24 mcg/dose blistr powdr for inhalation (Balxela Inhub) amlodipine 5 mg tablet 5 mg PO DAILY #90 tabs 04/13/24 rosuvastatin 40 mg tablet 40 mg PO DAILY 90 days #90 tabs 05/02/24 ezetimibe 10 mg tablet 10 mg PO DAILY #90 tabs 05/09/24 omeprazole 20 mg capsule,delayed 20 mg PO BID@0630,1630 #180 caps 05/24/24 release cefuroxime axetil 500 mg tablet 500 mg PO BID #19 tabs 05/29/24 prednisone 20 mg tablet 40 mg (2 x 20 mg) PO DAILY #8 tabs 05/29/24 Allergies Allergy/AdvReac Type Severity Reaction Status Date / Time ARB-Angiotensin Receptor AdvReac Severe [place] Verified 05/29/24 10:13 Antagonist MALVIN Inhibitors AdvReac Intermediate [place] Verified 05/29/24 10:13 Review of Systems Review of Systems: Yes all other systems are reviewed and are negative Constitutional: Constitutional: Reports no additional constitutional complaints, Denies body ache(s), Denies chills, Denies fever(s), Denies headache(s) and Denies weakness Eyes: Eyes: Reports no additional eye complaints and Denies change in vision ENT: Reports system reviewed and no additional complaints, except as documented, Denies dizziness, Denies headache(s), Denies nasal congestion, Reports nasal discharge, Denies neck pain and Reports sore throat Cardiovascular: Cardiovascular: Reports no additional cardiovascular complaints, Denies chest pain, Denies leg edema and Reports dyspnea Respiratory: Respiratory: Reports no additional respiratory complaints, Reports cough, Reports dyspnea and Reports wheezing Gastrointestinal: Gastrointestinal: Reports no additional gastrointestinal complaints, Denies abdominal pain, Denies diarrhea, Denies nausea and Denies vomiting Genitourinary: Genitourinary: Denies urinary incontinence Musculoskeletal: Musculoskeletal: Reports no additional musculoskeletal complaints, Denies back pain, Denies arthralgias, Denies joint swelling, Denies neck pain, Denies numbness and Denies tingling Integumentary/Breasts: Skin/Breast: Reports system reviewed and no additional complaints, except as docu and Denies rash Neurologic: Reports system reviewed and no additional complaints, except as documented, Denies Abnormal speech present, Denies dizziness, Denies headache(s), Denies numbness, Denies tingling and Denies weakness Allergic/Immunologic: Allergic/Immunologic: Reports wheezing PMFSH Past Medical History Attestation statement: The following information was validated with the patient. Source: old records reviewed and nursing notes reviewed Medical History Colon cancer screening Obesity (BMI 30-39.9) Tobacco abuse Heart failure with reduced ejection fraction Adult general medical exam Screening for prostate cancer Ischemic cardiomyopathy Colonoscopy refused Umbilical hernia COPD (chronic obstructive pulmonary disease) Coronary artery disease GERD (gastroesophageal reflux disease) Hypercholesterolemia Insomnia Hypertension Surgical History Hx of CABG Family History Family History Father No problems noted. Mother No problems noted. Sister No problems noted. Sister No problems noted. Brother No problems noted. Brother Myocardial infarct Liver cancer Social History Social History Household Members: Other Household Members Other:: brother Housing: House Do you presently have visiting nurse or other home services: Yes Alcohol intake: current Alcohol intake frequency: 3 or more drinks per day Alcohol type: beer Patient Tobacco Use Status: Former Tobacco user Tobacco use type: Cigarette Cigarettes Per Day: 10 e-Cigarette/Vaping Use: Never Used Second Hand Smoke Exposure: No Substance Use Type: Marijuana Advance Directives Date on File: 02/16/20 service: No Current occupational status: disabled Cognitive needs: No Hearing needs: No Vision needs: Yes Physical Exam Vital Signs: Vital Signs: Last Vital Signs Temp 97.8 F 05/29/24 14:42 Pulse 78 05/29/24 14:51 Resp 19 05/29/24 14:51 BP 144/82 H 05/29/24 14:51 Pulse Ox 95 05/29/24 14:51 O2 Del Method Room Air 05/29/24 14:51 O2 Flow Rate 2 05/29/24 11:15 BMI result Body Mass Index 33.8 Const: General: cooperative, healthy appearing, comfortable and no acute distress Orientation/consciousness: patient oriented x3 Limitations: no limitations HEENT: Head: Yes normal to inspection Ears: hearing grossly normal bilaterally and TM's normal bilaterally General nose exam: Normal external nose present Face and sinus: Yes normal facial exam Mouth: Normal oral and palatal mucosa present Throat: Yes posterior oropharynx normal, Yes tonsils normal and Yes uvula midline Eyes: General: appearance normal, both eyes and all related structures Pupils: Equal, round and reactive pupils present Neck: Neck: Yes normal visual inspection Chest: Chest palpation & inspection: normal inspection of the chest Resp: Effort & Inspection: normal respiratory effort Auscultation: wheezes Cardio: Rate: regular rate Rhythm: regular rhythm Peripheral pulses: Peripheral pulses 2+ throughout GI: Inspection: Yes normal to inspection Palpation (GI): Soft to palpation and nontender Auscultation: normal bowel sounds Back/Spine/Pelvis: Thoracic/Lumbar Spine: thoracic and lumbar spine normal to inspection Skin: General skin exam: no rashes or lesions noted Neuro: General: patient oriented x3, no focal motor deficits and normal sensation to monofilament Cranial nerves: Yes Equal, round and reactive pupils present Cognition (Neuro): normal cognition Speech: No Abnormal speech present Gait exam (Neuro): Normal gait present Motor exam (neuro): 5/5 motor strength present throughout Extrem: General: Yes normal to inspection, Yes no pedal edema and Yes no calf tenderness Course Course Course Narrative: chest x-ray shows no acute finding. Viral testing is negative. Patient was weaned off oxygen able to walk around the department with oxygen saturation greater than 92%. Viral testing is negative. he likely has a viral syndrome which is triggering his COPD. He does not meet any inpatient criteria and therefore shared decision-making at the bedside to discharge him home with prednisone and antibiotic. Reviewed worrisome signs and symptoms of when to return to the emergency room. Comfortable plan for discharge home. Medications Administered Discontinued Medications Generic Name Dose Route Start Last Admin Trade Name Freq PRN Reason Stop Dose Admin Cefuroxime Axetil 500 mg 05/29/24 12:54 05/29/24 13:13 Cefuroxime Axetil 500 Mg Tablet PO 05/29/24 12:55 500 mg ONCE ONE Administration Albuterol Sulfate 5 mg/ 0 mg 05/29/24 10:02 05/29/24 10:04 Albuterol/Ipratropium 3 ml INHALE 05/29/24 10:03 7.5 each ONCE ONE Administration Magnesium Sulfate 2 gm in 50 mls @ 25 mls/hr 05/29/24 11:30 05/29/24 13:10 Magnesium Sulfate/H2o IV 05/29/24 13:29 Infused ONCE ONE Infusion Methylprednisolone Sodium Succinate 125 mg 05/29/24 11:30 05/29/24 11:57 Methylprednisolone Sod Succ 125 Mg/2 Ml Vial IVPUSH 05/29/24 11:31 125 mg ONCE ONE Administration Medical Decision Making Medical Decision Making [facility] Narrative: 63-year-old male with a history of COPD who had a prodrome of what sounds like a viral illness with runny nose and sore throat who is now developed shortness of breath and wheezing today which is unrelieved with his home albuterol. Patient received DuoNeb by EMS and his initial room air saturation was 85%. He received an additional 10 mg of albuterol on arrival. On my exam he is sitting up in bed. Speaking full sentences. His oxygen saturation is 95% on 2 L of nasal cannula. He has some mild expiratory wheezing on exam. Otherwise exam was benign. Will obtain labs, viral testing, chest x-ray, EKG patient will receive 125 mg of Solu-Medrol and 2 g of magnesium his tachypnea is likely secondary to chronic lung disease and not from infection Differential Diagnosis Differential Diagnoses: The differential diagnosis associated with the presentation includes viral syndrome, influenza, chronic lung disease low suspicion for PE, ACS- No risk factors for same. No clinical findings concerning for DVT. No chest pain or exertional symptoms to suggest ACS with a nonischemic Admission/Observation Consideration of admission/observation: Escalation of care including admission/observation considered Patient likely has a viral syndrome which is triggering his COPD and he is not requiring any supplemental oxygen. His breathing is much improved after receiving treatments here and he would like to be discharged home with antibiotic and prednisone. Lab Data [facility] Lab Attestation statement: I reviewed the patient's lab results. 05/29/24 10:50 05/29/24 10:50 Labs: Lab Results 05/29/24 05/29/24 Range/Units 10:50 13:28 WBC 6.1 (4.8-10.8) X10*3/uL RBC 4.89 (4.60-5.80) X10*6/uL Hgb 15.9 (14.0-18.0) g/dl Hct 47.2 (42.0-52.0) % MCV 96.5 (80.0-98.0) fL MCH 32.5 (27.0-33.0) pg MCHC 33.7 (31.0-36.0) g/dl RDW 12.8 (11.0-16.0) % Plt Count 159 L (160-400) X10*3/uL MPV 10.1 (9.4-12.4) fL Immature Gran % (Auto) 0.2 (0.0-0.4) % Neut % (Auto) 63.0 (45-73) % Lymph % (Auto) 26.1 (20-40) % Treasure % (Auto) 9.4 (2-11) % Eos % (Auto) 1.0 (0-4) % Baso % (Auto) 0.3 (0-2) % Lymph # (Auto) 1.6 (1.2-4.9) X10*3/uL [place] # (Auto) 0.6 (0.1-1.2) X10*3/uL Eos # (Auto) 0.1 (0.0-0.4) X10*3/uL Baso # (Auto) 0.0 (0.0-0.2) X10*3/uL Abs Immat Gran (auto) 0.01 (0.00-0.03) X10*3/uL Absolute Neuts (auto) 3.8 (2.0-8.3) x10*3/uL Absolute Nucleated RBC 0.000 (0.0-0.012) X10*3/uL Nucleated RBC % (auto) 0.0 (0.0-0.2) /100WBC PT 12.6 H (10.9-12.4) SEC INR 1.1 (0.9-1.1) Sodium 139 (135-145) mmol/L Potassium 4.0 (3.3-5.1) mmol/L Chloride 101 (96-108) mmol/L Carbon Dioxide 28 (22-29) mmol/L Anion Gap 14 (12-20) BUN 13 (9-16) mg/dL Creatinine 0.90 (0.5-1.4) mg/dL Estim Creat Clear Calc 92.4 Estimated GFR > 60 Random Glucose 125 H (60-115) mg/dL Calcium 9.2 D (8.4-10.2) mg/dL Magnesium 2.1 (1.6-2.6) mg/dL Total Bilirubin 0.6 (0.0-1.0) mg/dL AST 51 H (5-37) U/L ALT 40 (0-40) U/L Alkaline Phosphatase 89 (39-117) U/L Troponin I High Sens 20.4 D 28.8 (<3.5-35.0) ng/L Total Protein 7.9 (6.5-8.0) g/dL Albumin 4.1 (3.5-5.0) g/dL Influenza Type A (PCR) NEGATIVE (Negative) Influenza Type B (PCR) NEGATIVE (Negative) RSV RNA Qual (PCR) NEGATIVE (Negative) SARS-CoV-2 RNA (RT-PCR) NEGATIVE (Negative) Independent Interpretation I performed an independent interpretation of an: EKG and Plain X-Ray Interpretation: I independently reviewed the x-ray and agree with the radiology report Independently reviewed the EKG which shows normal sinus rhythm with a rate 87, right bundle branch block Radiology Impression Discussion of test interpretation with radiology: I have reviewed the radiologist's reading. Radiologist Impression: [place] [id number] XRay Report Signed Patient: Johnny Pittman MR#: [id number] : 1960 Acct:[id number] Age/Sex: 63 / M ADM Date: 05/29/24 Loc: .ED Attending Dr: Ordering Physician: Thanh Whiting MD Date of Service: 05/29/24 Procedure(s): XR chest 2V Accession Number(s): [id number] cc: Thanh Whiting MD; Boy Jorge MD~ CLINICAL HISTORY: dyspnea 2 view chest x-ray Comparison: CR/SR - XR CHEST 2V - 01/19/23 12:54 EDT Findings: Chronic left pleural reaction unchanged. Heart size is normal. No acute fracture. The patient is status post median sternotomy. IMPRESSION: 1. No acute findings. This document has been electronically signed by: Jacob Vanessa MD on 05/29/2024 11:59:42 Independent Historian Clinical information obtained from an independent historian. History obtained from or confirmed by: EMS Prescription Management I considered prescription management with: Antibiotic Discharge Plan Discharge Clinical Impression: Acute viral syndrome, COPD exacerbation Patient Disposition: Home, Self-Care Instructions: COPD (Chronic Obstructive Pulmonary Disease) (ED), Viral Syndrome (ED) Additional Instructions: your blood work is reassuring Your x-ray shows no signs of pneumonia Your viral testing is negative flu, COVID and RSV. You likely have a virus which is triggering her COPD. While you are in the emergency room you received IV steroids, magnesium an oral antibiotic as well as several treatments Your next doses of prednisone, antibiotic are due tomorrow continue albuterol MDI Prescriptions: New cefuroxime axetil 500 mg tablet 500 mg PO BID Qty: 19 0RF prednisone 20 mg tablet 40 mg PO DAILY Qty: 8 0RF No Action isosorbide mononitrate 30 mg tablet extended release 24 hr 30 mg PO DAILY 90 Days Qty: 90 3RF metoprolol succinate 50 mg tablet extended release 24 hr 50 mg PO DAILY 90 Days Qty: 90 2RF furosemide [Lasix] 20 mg tablet 20 mg PO DAILY Qty: 30 2RF albuterol sulfate [Ventolin HFA] 90 mcg/actuation HFA aerosol inhaler 2 puff inhalation Q6H PRN (Reason: shortness of breath or wheezing) Qty: 8.5 0RF amlodipine 5 mg tablet 5 mg PO DAILY Qty: 90 0RF rosuvastatin 40 mg tablet 40 mg PO DAILY 90 Days Qty: 90 2RF ezetimibe 10 mg tablet 10 mg PO DAILY Qty: 90 3RF omeprazole 20 mg capsule,delayed release(DR/EC) 20 mg PO BID@0630,1630 Qty: 180 0RF aspirin 81 mg Tablet,Delayed Release (Dr/Ec) 81 mg PO DAILY fluticasone propion-salmeterol [Wixela Inhub] 250-50 mcg/dose blister with device 1 inh inhalation BID Qty: 60 12RF Referrals: Po,Boy Johnson MD [Primary Care Provider] - 1 week Interventions: ED Discharge Assessment Last Done: 05/29/24 14:42 Discharge Date/Time: 05/29/24 14:54 Print Language: Macedonian
[2024-05-29 11:48] LABS: Influenza A PCR NEGATIVE (Negative); Influenza B PCR NEGATIVE (Negative); Resp Syncy Virus RNA Qual PCR NEGATIVE (Negative); SARS COV2 PCR INHOUSE NEGATIVE (Negative)
[2024-05-29] MEDS: methylPREDNISolone Sod Succ 125 MG/2 ML VIAL IVPUSH (11:57)
[2024-05-29] MEDS: Magnesium Sulfate/H2O 2 GM/50 ML PIGGYBACK IV (11:57)
--- NOTE | 2024-05-29 12:28 | PC.NURSE ---
Pt reports + improvement in SOB sx's with treatment; LS with scattered wheezes/coarse; SAo2 93% RA; pt speaking full sentences; Magnesium drip infusing per orders at this time
[2024-05-29] MEDS: cefuroxime axetiL 500 MG TABLET PO (13:13)
[2024-05-29 13:54] LABS: Troponin-I High Sensitivity 28.8 ng/L (<3.5-35.0)
--- NOTE | 2024-05-29 14:47 | PC.NURSE ---
Pt ambulated in hallway on RA; SAO2 92% and pt reports + relief of sx's with tx; vss
== END 2024-05-29 14:54 | disposition home or self-care (01) ==
PROVIDERS: Nurse Practitioner Family; Emergency Provider Emergency Medicine; PCP Internal Medicine
DX: J44.1 Chronic obstructive pulmonary disease with (acute) exacerbation (principal); B34.9 Viral infection, unspecified; R06.02 Shortness of breath; R05.9 Cough, unspecified; I45.10 Unspecified right bundle-branch block; J02.9 Acute pharyngitis, unspecified; R09.89 Other specified symptoms and signs involving the circulatory and respiratory systems; R94.31 Abnormal electrocardiogram [ECG] [EKG]; Z03.818 Encounter for observation for suspected exposure to other biological agents ruled out; Z79.899 Other long term (current) drug therapy
CPT/HCPCS: 0241U; 36415; 71046; 80053; 83735; 84484; 85025; 85610; 93005; 94640; 96365; 96366; 96375; 99284; 99285; J2919; J3475

== ENCOUNTER → 2024-05-29 10:54 | Outpatient (BNV) | payer MEDICARE, SELFPAY | PROVIDERS: Emergency Provider Emergency Medicine; PCP Internal Medicine; Visit Provider Internal Medicine Cardiovascular Disease | DX: R06.02 Shortness of breath (principal); I45.10 Unspecified right bundle-branch block; R94.31 Abnormal electrocardiogram [ECG] [EKG] | CPT/HCPCS: 93010 ==

== ENCOUNTER → 2024-05-29 11:15 | Outpatient (BNV) | payer MEDICARE, SELFPAY | PROVIDERS: Emergency Provider Emergency Medicine; PCP Internal Medicine; Visit Provider Radiology Diagnostic Radiology | DX: R06.00 Dyspnea, unspecified (principal) | CPT/HCPCS: 71046 ==

== ENCOUNTER 2024-06-10 10:45 | Outpatient (AMB) | payer MEDICARE, SELFPAY ==
--- NOTE | 2024-06-10 10:52 | MHC.PC.OV ---
Vital Signs 06/10/24 11:02 06/10/24 11:14 Height 5 ft 8.9 in Weight 199 lb BMI 29.5 BP 158/70 H 136/78 Blood Pressure Location Lt brachial Lt brachial Position Sitting Sitting Respiration 14 Pulse 74 Pulse Source Pulse Oximeter Temp 97.1 F Temp Source Temporal Artery Scan Pulse Oximetry (%) 91 L 94 Oxygen Delivery Method Room Air Room Air Intake Visit Reasons: [facility] 05/29 SOB X 3 DAYS Pet Store Merchandiser Required: No Allergies ARB-Angiotensin Receptor Antagonist Adverse Reaction (Severe, Verified 06/10/24 11:10) [place] MALVIN Inhibitors Adverse Reaction (Intermediate, Verified 06/10/24 11:10) [place] Medication List - Last Reconciled 06/10/24 by Lawanda Paul PA-C albuterol sulfate 90 mcg/actuation (Ventolin HFA) 2 puffs inhalation Q6H PRN amlodipine 5 mg PO DAILY aspirin 81 mg PO DAILY cefuroxime axetil 500 mg PO BID ezetimibe 10 mg PO DAILY fluticasone propion-salmeterol 250-50 mcg/dose (Wixela Inhub) 1 inh inhalation BID furosemide (Lasix) 20 mg PO DAILY isosorbide mononitrate ER 30 mg PO DAILY 90 days metoprolol succinate ER 50 mg PO DAILY 90 days omeprazole 20 mg PO BID@0630,1630 prednisone 40 mg (2 x 20 mg) PO DAILY rosuvastatin 40 mg PO DAILY 90 days Tobacco use date assessed: 07/20/23 Dental Screening Dental Screen Date: 03/15/24 HPI [facility] 05/29 SOB X 3 DAYS HPI Details 63-year-old male with past medical history of tobacco abuse, hypercholesterolemia, impaired glucose tolerance, history of alcohol abuse, congestive heart failure, coronary artery disease, cardiomyopathy, GERD, COPD last seen by Dr. Jorge 03/2024 coming in for hospital discharge follow up. In review of the notes, patient was seen in [facility] ED when [id number] for productive cough and sore throat diagnosed with viral upper respiratory infection given history of COPD was discharged home with prednisone and antibiotic. Patient was seen by car knocker 05/23/2024 advised to continue with aggressive blood pressure management he was referred for possible ICD placement and continued on Lasix therapy. His target goal for LDL should be closer to 50. Patient tells us today his breathing has been improved since the prednisone and the antibiotic. Continues to have bilateral rib pain worse on the left side that is also painful while lying down or taking deep breath. He states he was coughing quite a bit before he was initially brought to the ED and the rib pain has been persistent since 05/29/2024. He did complete the prednisone and is still taking the antibiotic. [facility] Medical History Colon cancer screening Obesity (BMI 30-39.9) Tobacco abuse Heart failure with reduced ejection fraction Adult general medical exam Screening for prostate cancer Ischemic cardiomyopathy Colonoscopy refused Umbilical hernia COPD (chronic obstructive pulmonary disease) Coronary artery disease GERD (gastroesophageal reflux disease) Hypercholesterolemia Insomnia Hypertension Surgical History Hx of CABG Family History Father No problems noted. Mother No problems noted. Sister No problems noted. Sister No problems noted. Brother No problems noted. Brother Myocardial infarct Liver cancer Social History Household Members: Other Household Members Other:: brother Housing: House Do you presently have visiting nurse or other home services: Yes Alcohol intake: current Alcohol intake frequency: 3 or more drinks per day Alcohol type: beer Patient Tobacco Use Status: Former Tobacco user Tobacco use type: Cigarette Cigarettes Per Day: 10 e-Cigarette/Vaping Use: Never Used Second Hand Smoke Exposure: No Substance Use Type: Marijuana Advance Directives Date on File: 02/16/20 service: No Current occupational status: disabled Cognitive needs: No Hearing needs: No Vision needs: Yes Questionnaire PHQ-9 Over the last 2 weeks, how often have you been bothered by any of the following problems? 1. Little interest or pleasure in doing things: not at all 2. Feeling down, depressed, or hopeless: not at all 3. Trouble falling or staying asleep, or sleeping too much: not at all 4. Feeling tired or having little energy: not at all 5. Poor appetite or overeating: not at all 6. Feeling bad about yourself - or that you are a failure or have let yourself or your family down: not at all 7. Trouble concentrating on things, such as reading the newspaper or watching television: not at all 8. Moving or speaking so slowly that other people could have noticed. Or the opposite - being so fidgety or restless that you have been moving around a lot more than usual: not at all 9. Thoughts that you would be better off or of hurting yourself in some way: not at all Total score: 0 Depression Screening Interpretation: Negative Depression Screening Done: Yes Source: Developed by Drs. Johnny Araiza, Tamiko Mcdonald, Negrito Maurer and colleagues, with an educational franklin from [employer]. Thrive Questionnaire Date Thrive assessed: 06/10/24 I am a: Patient What is your living situation today?: I have a steady place to live Within the past 12 months, did the food you bought not last and you didn't have the money to get more?: Never true Within the past 12 months, did you worry whether your food would run out before you got money to buy more?: Never true Do you have trouble paying for medicines?: No Do you have trouble getting transportation to medical appointments?: No Do you have trouble paying your heating and electricity bill?: No Do you have trouble taking care of your child, family member or friend?: No Do you have trouble with day-to-day activities such as bathing, preparing meals, shopping, managing finances, etc.?: No Are you currently unemployed and looking for a job?: No Are you interested in more education?: No Please select the resources that you would like help with: None Currently or been in a relationship where the following occur: No concerns reported THRIVE Score: 0 AUDIT C Alcohol Use Questionnaire (AUDIT-C) 1. How often do you have a drink containing alcohol?: Never 3. How often do you have six or more drinks on one occasion?: Never Total Score: 0 JUAN-7 AMB Questionnaire JUAN-7 Date JUAN - 7 assessed: 06/10/24 Feeling nervous, anxious, or on edge: 0 = Not at all Not being able to stop or control worryin = Not at all Worrying too much about different things: 0 = Not at all Trouble relaxin = Not at all Being so restless that it is hard to sit still: 0 = Not at all Becoming easily annoyed or irritable: 0 = Not at all Feeling afraid as if something awful might happen: 0 = Not at all Total JUAN-7 score (0-4 normal; 5-9 mild; 10-14 moderate; 15-21 severe): 0 Source: Developed by Drs. Johnny Araiza, Tamiko Mcdonald, Negrito Maurer and colleagues, with an educational franklin from [employer]. JUAN-7 Assessment Billing JUAN-7 Assessment Tool: JUAN-7 Assessment 94202 Review of Systems Const Denies body aches, Denies chills, Denies fever(s), Denies headache(s) and Denies poor appetite Eyes Reports no additional complaints ENT Denies dysphagia, Denies dizziness, Denies headache(s) and Denies odynophagia Card Denies chest pain, Denies syncope, Denies edema, Denies irregular heart rhythm, Denies lightheadedness and Reports dyspnea Resp Reports cough and Reports dyspnea GI Denies abdominal pain, Denies constipation, Denies dysphagia, Denies diarrhea, Denies nausea, Denies odynophagia and Denies vomiting Reports no additional complaints Musc Reports no additional complaints and Denies abnormal gait Skin/Breast Reports system reviewed and no additional complaints, except as documented Neuro Denies abnormal gait, Denies dizziness, Denies syncope and Denies headache(s) Psych Reports no additional complaints Physical exam (Primary Care) Vital Signs: Last Vital Signs Temp 97.1 F 06/10/24 11:02 Pulse 74 06/10/24 11:02 Resp 14 06/10/24 11:02 BP 136/78 06/10/24 11:14 Pulse Ox 94 06/10/24 11:14 Oxygen Delivery Method Room Air 06/10/24 11:14 BMI result Body Mass Index 29.5 Tobacco/Smoking Status: Tobacco use Status Tobacco use date assessed 07/20/23 06/10/24 10:54 Patient Tobacco Use Status Former Tobacco user 06/10/24 10:54 Tobacco use type Cigarette 06/10/24 10:54 e-Cigarette/Vaping Use Never Used 06/10/24 10:54 PHQ-9: PHQ-9 Score PHQ-9: Total score 0 06/10/24 11:14 Depression Screening Interpretation: Negative Thrive Assessment: Date of Thrive Assessment Date Thrive assessed 06/10/24 06/10/24 11:09 Currently or been in a relationship where the following occur: No concerns reported Const General: cooperative, healthy appearing, comfortable and no acute distress Orientation/consciousness: patient oriented x3 [facility] Head: Yes normocephalic Ears: hearing grossly normal bilaterally General nose exam: Normal external nose present Eyes General: appearance normal, both eyes and all related structures Conjunctivae: conjunctivae normal Neck Neck: Yes full ROM and Yes no lymphadenopathy Chest Other: No tenderness to palpation of bilateral rib Resp Effort & Inspection: normal respiratory effort Auscultation: clear to auscultation bilaterally, no crackles, no rales, no rhonchi, wheezes right upper and diminished lung sounds on the left in the lower lung juarez Cardio Rate: regular rate Rhythm: regular rhythm Skin General skin exam: no rashes or lesions noted Neuro General: patient oriented x3 Gait exam (Neuro): Normal gait present Extrem General: Yes normal to inspection, Yes full ROM and No edema Psych Affect: normal affect Attitude: cooperative Insight: Good insight present (Psych) Judgement: Good judgement present (Psych) Coding Level of Care Code Est Pt Level 4 (83887) Diagnoses Ischemic cardiomyopathy I25.5 Panlobular emphysema J43.1 COPD type: emphysema Emphysema type: panlobular Coronary artery disease involving t[place] coronary artery of t[place] heart without angina pectoris I25.10 Associated angina: without angina Coronary Disease-Associated Artery/Lesion type: t[place] artery Enterprise vs. transplanted heart: t[place] heart Hypercholesterolemia E78.00 Cough R05.9 Rib pain R07.81 Essential hypertension I10 Hypertension type: essential hypertension Additional Codes JUAN-7 Assessment Billing - JUAN-7 Assessment Tool: JUAN-7 Assessment 73414 ([id number]) Assessment & Plan Assessment & Plan (1) Ischemic cardiomyopathy: Code(s): I25.5 - Ischemic cardiomyopathy Category: Medical Plan: Patient follows up with Cardiology and undergoing myocardial perfusion scan. Considering ICD placement (2) COPD (chronic obstructive pulmonary disease): Code(s): J44.9 - Chronic obstructive pulmonary disease, unspecified Category: Medical Qualifiers: COPD type: emphysema Emphysema type: panlobular Qualified Code(s): J43.1 - Panlobular emphysema Plan: Continue with albuterol inhaler and Wixela Recent ER visit for shortness of breath diagnosed with COPD exacerbation given prednisone and antibiotics. He completed the prednisone and still continues to have shortness of breath and will continue with the antibiotic for a few more days. (3) Coronary artery disease: Comment: [place], circumflex stenting in 2009, unstable angina, LAD stenting in 2011. Persistent significant angina with abnormal stress test leading to 3 vessel coronary artery bypass grafting in 2012 echocardiogram September 2021Normal left ventricular cavity size. There is mildly increased left ventricular wall thickness. The left ventricular systolic function is mildly decreased. The visually estimated ejection fraction is between 40-45%. - E/E prime ratio is between 8 and 15 consistent with indeterminate filling pressures. - The basal inferior and mid inferior segments are akinetic. - Normal right ventricular cavity size and systolic function. Code(s): I25.10 - Atherosclerotic heart disease of tazl[place] coronary artery without angina pectoris Category: Medical Qualifiers: Associated angina: without angina Coronary Disease-Associated Artery/Lesion type: t[place] artery Enterprise vs. transplanted heart: t[place] heart Qualified Code(s): I25.10 - Atherosclerotic heart disease of t[place] coronary artery without angina pectoris Plan: Control the cholesterol, weight, blood pressure, workup pending continue follow-up with cardiology (4) Hypercholesterolemia: Code(s): E78.00 - Pure hypercholesterolemia, unspecified Category: Medical Plan: Avoid fried foods, chicken skin, eggs, butter margarine, pastries and meat. Be it pork or beef they have a lot of cholesterol on Zetia 10 mg once a day and rosuvastatin 40 mg once a day (5) Cough: Code(s): R05.9 - Cough, unspecified Category: Medical Plan: Patient complaining of intermittent cough that has been present since before his ED is a visit when [id number]. He states his symptoms have improved since being on the prednisone and antibiotic but still have occasional cough. Now complains of bilateral rib pain worse with taking a deep breath and while lying flat. Ordered for chest x-ray with rib series as well as CMP and BNP to evaluate for shortness of breath. Patient having decreased breath sounds in left lower lung and wheezing in right lung throughout. Offered nebulizer treatment today which was declined by the patient. (6) Rib pain: Code(s): R07.81 - Pleurodynia Category: Medical Plan: Patient complaining of bilateral rib pain no tenderness to palpation on exam however given history we will order for chest x-ray with rib series. Likely patient having a costochondritis given recent upper respiratory infection. Advised to use Tylenol and given muscle relaxer for pain. Awaiting results of x-ray. (7) Hypertension: Code(s): I10 - Essential (primary) hypertension Category: Medical Qualifiers: Hypertension type: essential hypertension Qualified Code(s): I10 - Essential (primary) hypertension Plan: Continue with blood pressure medication. Decrease salt intake and exercise presently on metoprolol 50 mg once a day amlodipine 5 mg once a day Plan This note was constructed using voice recognition software. While every effort has been made to ensure accuracy and supervisor wood crew, still areas may have been included sometimes these areas may affect the content or meeting of the given symptoms. Total time spent caring for the patient today was 20 minutes. This includes time spent before the visit reviewing the chart, time spent during the visit, and time spent after the visit and documentation. Orders: Orders XR ribs BI min 4V w CXR1V Today R05.9 - Cough, unspecified, R07.81 - Pleurodynia B Type Natriuretic Peptide Today E78.00 - Pure hypercholesterolemia, unspecified Comprehensive Met. Panel Today N18.9 - Chronic kidney disease, unspecified Medications: New cyclobenzaprine 5 mg PO BEDTIME PRN 14 tabs 0RF muscle spasm
[2024-06-10 11:02] VITALS: BP 158/70; PULSE 74; RESP 14; TEMP 36.2; O2SAT 91; BMI 29.5
[2024-06-10 11:14] VITALS: BP 136/78; O2SAT 94
--- OUTSIDE RECORDS SUMMARY | 2024-06-10 11:29 | XMS_ITS | Clinical Summary ---
Author Organization [facility] Address [address] [place] [address] Phone Care Team Providers Care Retort Condenser Attendant Name Role Phone Boy Jorge MD Primary Care Provider [phone] Allergies No known active allergies Medications zolpidem (AMBIEN) 5 MG tablet Take 5 mg by mouth at night if needed 09/16/2021 Active rosuvastatin (CRESTOR) 40 MG tablet 09/25/2021 Active metoprolol succinate XL (TOPROL XL) 50 MG 24 hr tablet 09/22/2021 Act yuli isosorbide mononitrate (IMDUR) 30 MG 24 hr tablet Take 30 mg by mouth 1 (one) time each day 09/12/2021 Active furosemide (LASIX) 20 MG tablet TAKE 1 TABLET BY MOUTH DAILY NEEDED FOR WEIGHT GAIN 09/24/2021 Active ezetimibe (ZETIA) 10 MG tablet Take 10 mg by mouth 1 (one) time each day 07/29/2021 Active Aspirin Low Dose 81 MG EC tablet Take 81 mg by mouth 1 (one) time each day 09/12/2021 Active omeprazole (PriLOSEC) [address] capsule Take 20 mg by mouth 1 (one) time each day Do not crush or chew. Active amLODIPine (NORVASC) 5 MG tablet TAKE 1 TABLET(5 MG) BY MOUTH 1 TIME EACH DAY 90 tablet 3 02/14/2023 Active Active Problems Problem Noted Date Diagnosed Date Chronic kidney disease, stage 4 (severe) 022 Anemia in chronic kidney disease 01/27/2022 Chronic obstructive pulmonary disease 10/08/2021 Atherosclerotic heart diseas e of cahto coronary artery with angina pectoris 10/08/2021 Gastroesophageal reflux disease 10/08/2021 Hypercholesterolemia 10/08/2021 Essential (primary) hypertension 10/08/2021 Insomnia 10/08/2021 Stage 3b chronic kidney disease 10/08/2021 Renal osteodystrophy 10/08/2021 Family History Relation Status Comments Mother Social History Tobacco Use Types Packs/Day Years Used Date Smoking Tobacco: Every Day Cigarettes Alcohol Use Standard Drinks/Week Comments Yes 0 (1 standard drink = 0.6 oz pure alcohol) 3 or more drinks per day ( beer) Sex and Gender Information Value Date Recorded Sex Assigned at Not on file Legal Sex Male 8:46 AM EDT Gender Identity Not on file Sexual Orientation Not on file Last Filed Vital Signs Vital Sign Reading Time Taken Comments Blood Pressure 140/65 09/15/2022 2:23 PM EDT Pulse 71 09/15/2022 2:23 PM EDT Temperature - - Respiratory Rate - - Oxygen Saturation 94% 09/15/2022 2:23 PM EDT Inhaled Oxygen Concentration - - Weight 91.9 kg (202 lb 9.6 oz) 09/15/2022 2:23 P M EDT Height - - Body Mass Index - - Plan of Treatment Health Maintenance Due Date Last Done Comments Pneumococcal Vaccine: Pediat rics (0 to 5 Years) and At-Risk Patients (6 to 64 Years) (1 of 2 - PCV) 1966 Colorectal Cancer Screening: Annual FOBT 2008 Colorectal Cancer Screening: Colonoscopy 2008 Colorectal Cancer Screening: Sigmoidoscopy 2008 Influenza Vaccine (#1) 2024 Hepatitis B Vaccine Aged Out No longe r eligible based on patient's age to complete this topic Insurance [place]ID [place] Care Teams Retort Condenser Attendant Relationship Specialty Start Date End Date Boy Jorge MD [facility] [place] [address] [place], [place] PCP - General Internal Medicine 09/02/21
--- OUTSIDE RECORDS SUMMARY | 2024-06-10 11:29 | XMS_ITS | Encounter Summary ---
Author Organization [facility] Address [address] [facility] [address] [place] [address] Phone Care Team Providers Care Material Control Analyst Name Role Phone Boy Jorge MD Primary Care Provider [phone] Reason for Visit * Reason Comments Med Refill Encounter Details Date Type Department Care Team (Late st Contact Info) Description 01/14/2024 Refill [facility] [address] [place] [phone] Bairon Redman MD [address] [facility] [address] [place] [phone] Social History Tobacco Use Types Packs/Day Years [...] on file Sexual Orientation Not on file documented as of this encounter Plan of Treatment Not on file documented as of this encounter Visit Diagnoses Not on filedocumented in this encounter Care Teams Material Control Analyst Relationship Specialty Start Date End Date Boy Jorge MD [facility] [facility] [place] [address] [place] PCP - General Internal Medicine 09/02/21 documented as of this encounter
--- OUTSIDE RECORDS SUMMARY | 2024-06-10 11:29 | XMS_ITS | Encounter Summary ---
Author Organization [facility] Address [address] [facility] [address] [place] [address] Phone Care Team Providers Care Gunstock Spray Unit Adjuster Name Role Phone Boy Jorge MD Primary Care Provider [phone] Reason for Visit * Reason Comments Med Refill Encounter Details Date Type Department Care Team (Late st Contact Info) Description 01/22/2024 Refill [facility] [address] [place] [phone] Bairon Redman MD [address] [facility] [address] [place] [phone] Social History Tobacco Use Types Packs/Day Years [...] on filedocumented in this encounter Care Teams Gunstock Spray Unit Adjuster Relationship Specialty Start Date End Date Boy Jorge MD [facility] [facility] [place] [address] [place] PCP - General Internal Medicine 09/02/21 documented as of this encounter
== END 2024-06-10 11:26 | disposition home or self-care (01) ==
PROVIDERS: PCP Internal Medicine
DX: I25.5 Ischemic cardiomyopathy (principal); J43.1 Panlobular emphysema; I25.10 Atherosclerotic heart disease of native coronary artery without angina pectoris; E78.00 Pure hypercholesterolemia, unspecified; R05.9 Cough, unspecified; R07.81 Pleurodynia; I10 Essential (primary) hypertension

== ENCOUNTER 2024-06-10 10:45 | Outpatient (REF) | payer MEDICARE, SELFPAY ==
--- NOTE | ~2024-06-10 | XR_ITS ---
EXAMINATION: XR RIBS, BILATERAL CLINICAL INFORMATION: R05.9 - Cough, unspecified COMPARISON: None available. TECHNIQUE: 3 views of the bilateral ribs were obtained. FINDINGS: The lungs are hyperinflated with patchy scarring atelectasis left lung base. Heart size and poor vascularity is normal. There are median sternotomy sutures and mediastinal angel from previous CABG. No gross bony abnormality seen. Multiple views of bilateral ribs reveal no visible rib fracture. The soft tissues are normal. XR/XR ribs BI min 4V w CXR1V IMPRESSION: Hyperinflated lungs with chronic scarring atelectasis left lung base Electronically signed by: Wong Dennis MD 06/10/2024 12:41 PM EST
[2024-06-10 12:00] LABS: MANUAL DIFF FLAG NO
--- OUTSIDE RECORDS SUMMARY | 2024-06-10 12:18 | XMS_ITS | Encounter Summary ---
Author Organization [facility] Address [address] [facility] [address] [place] [address] Phone Care Team Providers Care Filter Plant Supervisor Name Role Phone Boy Jorge MD Primary Care Provider [phone] Reason for Visit * Reason Comments Med Refill Encounter Details Date Type Department Care Team (Late st Contact Info) Description 01/22/2024 Refill [facility] [address] [place] [phone] Bairon Redman MD [address] [facility] [address] [place] [phone] Social History Tobacco Use Types Packs/Day Years [...] on filedocumented in this encounter Care Teams Filter Plant Supervisor Relationship Specialty Start Date End Date Boy Jorge MD [facility] [facility] [place] [address] [place] PCP - General Internal Medicine 09/02/21 documented as of this encounter
--- OUTSIDE RECORDS SUMMARY | 2024-06-10 12:18 | XMS_ITS | Encounter Summary ---
Author Organization [facility] Address [address] [place] [address] Phone Care Team Providers Care President And Cmo Name Role Phone Boy Jorge MD Primary Care Provider [phone] Reason for Visit * Reason Comments Med Refill Encounter Details Date Type Department Care Team (Late st Contact Info) Description 01/14/2024 Refill [facility] [address] [place] [phone] Bairon Redman MD [address] [facility] [address] [place] [phone] Social History Tobacco Use Types Packs/Day Years [...] on filedocumented in this encounter Care Teams President And Cmo Relationship Specialty Start Date End Date Boy Jorge MD [facility] [facility] [place] [address] [place] PCP - General Internal Medicine 09/02/21 documented as of this encounter
--- OUTSIDE RECORDS SUMMARY | 2024-06-10 12:18 | XMS_ITS | Clinical Summary ---
Author Organization [facility] Address [address] [place] [address] Phone Care Team Providers Care Crusher Supervisor Name Role Phone Boy Jorge MD Primary Care Provider [phone] Allergies No known active allergies Medications zolpidem [...] disease 10/08/2021 Atherosclerotic heart diseas e of nikolai coronary artery with angina pectoris 10/08/2021 Gastroesophageal [...] topic Insurance MEDICARE [place]ICAID [place]ARE [place]ID [place] Care Teams Crusher Supervisor Relationship Specialty Start Date End Date Boy Jorge MD [facility] [place] [address] [place], [place] PCP - General Internal Medicine 09/02/21
[2024-06-10 12:47] LABS: Basophils Percent Auto 0.3 % (0-2); Eosinophils Absolute Auto 0.1 X10*3/uL (0.0-0.4); Hematocrit 46.1 % (42.0-52.0); Hemoglobin 15.4 g/dl (14.0-18.0); Imm Gran Abs Auto 0.03 X10*3/uL (0.00-0.03); Imm Gran Pct Auto 0.3 % (0.0-0.4); Lymphocytes Absolute Auto 1.6 X10*3/uL (1.2-4.9); Lymphocytes Percent Auto 17.3 % (20-40); Mean Corpuscular HGB Conc 33.4 g/dl (31.0-36.0); Mean Corpuscular Hemoglobin 31.7 pg (27.0-33.0); Mean Corpuscular Volume 94.9 fL (80.0-98.0); Mean Platelet Volume 10.5 fL (9.4-12.4); Monocytes Absolute Auto 0.8 X10*3/uL (0.1-1.2); Monocytes Percent Auto 9.2 % (2-11); Neutrophils Absolute Auto 6.5 x10*3/uL (2.0-8.3); Neutrophils Percent Auto 71.9 % (45-73); Platelet Count 178 X10*3/uL (160-400); Red Blood Count 4.86 X10*6/uL (4.60-5.80); Red Cell Distribution Width 12.5 % (11.0-16.0)
[2024-06-10 12:56] LABS: Estimated Average Glucose 123 mg/dL; Hemoglobin A1c % 5.9 % (<6.0); Total Hemoglobin (HGBA1C) 3969.5623 umol/L
[2024-06-10 12:56] LABS: Appearance Urine Clear; Color Urine Dark Yellow; Glucose Urine UA Negative (Negative); Leukocyte Esterase Urine Negative (Negative); Nitrite Urine Negative (Negative); Specific Gravity - Urine 1.015 (1.005-1.025); Urine Blood Negative (Negative); Urine Ketones Negative (Negative); Urine Protein Trace mg/dL (Neg-Trace)
[2024-06-10 13:38] LABS: Cholesterol 138 mg/dL (<200); HDL Cholesterol 54 mg/dL (>40); LDL Cholesterol Calculated 57 mg/dL (<100); Triglycerides 135 mg/dL (<150)
[2024-06-10 13:40] LABS: Free T4 (Free Thyroxine) 0.98 ng/dL (0.71-1.85); Thyroid Stimulating Hormone 1.98 uIU/mL (0.32-4.0)
[2024-06-10 13:56] LABS: Folate 9.8 ng/mL (> or = 4.0); Prostate Specific Antigen Scr 0.26 ng/mL (<0.05-4.0); Vitamin B12 654 pg/mL (200-900)
== END 2024-06-10 10:46 | disposition home or self-care (01) ==
LOC: HO.XRAY 10:45
PROVIDERS: PCP Internal Medicine
DX: I25.5 Ischemic cardiomyopathy (principal); J43.1 Panlobular emphysema; I25.10 Atherosclerotic heart disease of native coronary artery without angina pectoris; E78.00 Pure hypercholesterolemia, unspecified; R05.9 Cough, unspecified; R07.81 Pleurodynia; I12.9 Hypertensive chronic kidney disease with stage 1 through stage 4 chronic kidney disease, or unspecified chronic kidney disease; N18.9 Chronic kidney disease, unspecified; R30.0 Dysuria; Z79.899 Other long term (current) drug therapy; Z12.5 Encounter for screening for malignant neoplasm of prostate
CPT/HCPCS: 36415; 71111; 80061; 81003; 82607; 82746; 83036; 84153; 84439; 84443; 85025; 96127; 99212

== ENCOUNTER → 2024-06-10 12:03 | Outpatient (BNV) | payer MEDICARE, SELFPAY | PROVIDERS: PCP Internal Medicine; Visit Provider Radiology Diagnostic Radiology | DX: R06.02 Shortness of breath (principal) | CPT/HCPCS: 71111 ==

== ENCOUNTER 2024-07-05 12:17 | Outpatient (AMB) | payer MEDICARE, SELFPAY ==
[2024-07-05 12:23] VITALS: BP 158/80; PULSE 75; O2SAT 95; BMI 29.0
--- NOTE | 2024-07-05 12:23 | A.OFFPC_ITS ---
Vital Signs 07/05/24 12:23 Height 5 ft 8.9 in Weight 196 lb BMI 29.0 BP 158/80 H Blood Pressure Location Lt brachial Position Sitting Pulse 75 Pulse Source Pulse Oximeter Pulse Oximetry (%) 95 Oxygen Delivery Method Room Air Intake Visit Reasons: cad Allergies ARB-Angiotensin Receptor Antagonist Adverse Reaction (Severe, Verified 07/05/24 12:24) [place] MALVIN Inhibitors Adverse Reaction (Intermediate, Verified 07/05/24 12:24) [place] Medication List - Last Reconciled 07/05/24 by Boy Jorge MD albuterol sulfate 90 mcg/actuation (Ventolin HFA) 2 puffs inhalation Q6H PRN amlodipine 5 mg PO DAILY aspirin 81 mg PO DAILY cyclobenzaprine 10 mg PO BID PRN ezetimibe 10 mg PO DAILY fluticasone propion-salmeterol 250-50 mcg/dose (Wixela Inhub) 1 inh inhalation BID furosemide (Lasix) 20 mg PO DAILY isosorbide mononitrate ER 30 mg PO DAILY 90 days metoprolol succinate ER 50 mg PO DAILY 90 days omeprazole 20 mg PO BID@0630,1630 prednisone 4 tabs QD x 2 days then 3 tabs QD x 2 days then 2 tabs Qd x 2 days then 1 tab QD x 2 days PO daily; rosuvastatin 40 mg PO DAILY 90 days Tobacco use date assessed: 07/05/24 Fall risk assessment: No Falls in past year Last assessed Fall Risk: 07/05/24 Dental Screening Dental Screen Date: 07/05/24 Did you have a dental visit in the last 12 months?: No Did you have a dental problem in the last 6 months where you did not have access to dental care?: No Was dental information given to patient?: No HPI cad HPI Details ER visit 05/29/2024 for sob and was toldCOPD exacerbation and viral syndrome- test negative, no fevers, , feels tight patient was rx cyclobenzaprine .The patient is a 64-year-old male presenting with respiratory distress and associated pain. The patient has a history of COPD and reported difficulty breathing, which led him to visit the emergency room on May 29, 2024, where it was suggested that a viral infection had exacerbated his COPD symptoms. The patient expressed significant discomfort during coughing and sneezing, fearing it might mimic the sensation of having broken ribs from a past incident, though no actual trauma or car accident was involved. The patient denied having fever or sputum production. Pain is described as a feeling of being jolted internally, with pain shooting up the spine upon coughing. Interventions have included the regular use of albuterol inhalers and the maintenance treatment with Wexela. The patient was low on albuterol and has been advised to maintain good hydration and avoid NSAIDs. He reported that Tylenol provided some relief, though minimal, and expressed concerns about worsening symptoms and sleepiness from pain management medication. A recent chest x-ray was clear, and a urine test was negative for blood. The patient mentioned being prescribed a short course of steroids to aid in breathing and pain relief. [facility] Medical History Colon cancer screening Obesity (BMI 30-39.9) Tobacco abuse Heart failure with reduced ejection fraction Adult general medical exam Screening for prostate cancer Ischemic cardiomyopathy Colonoscopy refused Umbilical hernia COPD (chronic obstructive pulmonary disease) Coronary artery disease GERD (gastroesophageal reflux disease) Hypercholesterolemia Insomnia Hypertension Surgical History Hx of CABG Family History Father No problems noted. Mother No problems noted. Sister No problems noted. Sister No problems noted. Brother No problems noted. Brother Myocardial infarct Liver cancer Social History Household Members: Other Household Members Other:: brother Housing: House Do you presently have visiting nurse or other home services: Yes Alcohol intake: current Alcohol intake frequency: 3 or more drinks per day Alcohol type: beer Patient Tobacco Use Status: Former Tobacco user Tobacco use type: Cigarette Cigarettes Per Day: 10 e-Cigarette/Vaping Use: Never Used Second Hand Smoke Exposure: No Substance Use Type: Marijuana Advance Directives Date on File: 02/16/20 service: No Current occupational status: disabled Cognitive needs: No Hearing needs: No Vision needs: Yes Questionnaire PHQ-9 Over the last 2 weeks, how often have you been bothered by any of the following problems? 1. Little interest or pleasure in doing things: not at all 2. Feeling down, depressed, or hopeless: not at all 3. Trouble falling or staying asleep, or sleeping too much: not at all 4. Feeling tired or having little energy: not at all 5. Poor appetite or overeating: not at all 6. Feeling bad about yourself - or that you are a failure or have let yourself or your family down: not at all 7. Trouble concentrating on things, such as reading the newspaper or watching television: not at all 8. Moving or speaking so slowly that other people could have noticed. Or the opposite - being so fidgety or restless that you have been moving around a lot more than usual: not at all 9. Thoughts that you would be better off or of hurting yourself in some way: not at all Total score: 0 Depression Screening Interpretation: Negative Depression Screening Done: Yes Source: Developed by Drs. Johnny Araiza, Tamiko Mcdonald, Negrito Maurer and colleagues, with an educational franklin from [employer]. Thrive Questionnaire Date Thrive assessed: 06/10/24 AUDIT C Alcohol Use Questionnaire (AUDIT-C) 1. How often do you have a drink containing alcohol?: Never 3. How often do you have six or more drinks on one occasion?: Never Total Score: 0 JUAN-7 AMB Questionnaire JUAN-7 Date JUAN - 7 assessed: 06/10/24 Source: Developed by Drs. Johnny Araiza, Tamiko Mcdonald, Negrito Maurer and colleagues, with an educational franklin from [employer]. Physical exam (Primary Care) Vital Signs: Last Vital Signs Pulse 75 07/05/24 12:23 BP 158/80 H 07/05/24 12:23 Pulse Ox 95 07/05/24 12:23 Oxygen Delivery Method Room Air 07/05/24 12:23 BMI result Body Mass Index 29.0 Tobacco/Smoking Status: Tobacco use Status Tobacco use date assessed 07/05/24 07/05/24 12:29 Patient Tobacco Use Status Former Tobacco user 07/05/24 12:29 Tobacco use type Cigarette 07/05/24 12:29 e-Cigarette/Vaping Use Never Used 07/05/24 12:29 PHQ-9: PHQ-9 Score PHQ-9: Total score 0 07/05/24 12:29 Depression Screening Interpretation: Negative Thrive Assessment: Date of Thrive Assessment Date Thrive assessed 06/10/24 07/05/24 12:29 Const General: alert; No acute distress Eyes Conjunctivae: conjunctivae normal Resp Auscultation: clear to auscultation bilaterally Cardio Rate: regular rate Rhythm: regular rhythm GI Inspection: Yes normal to inspection Extrem General: Yes normal to inspection and No edema Coding Level of Care Code Est Pt Level 4 (05505) Complex EM visit Add On G2211 Diagnoses Ischemic cardiomyopathy I25.5 Panlobular emphysema J43.1 COPD type: emphysema Emphysema type: panlobular Chronic kidney disease, unspecified CKD stage N18.9 Chronic kidney disease stage: unspecified stage Gastroesophageal reflux disease without esophagitis K21.9 Esophagitis presence: without esophagitis Coronary artery disease involving [place] coronary artery of [place] heart without angina pectoris I25.10 Coronary Disease-Associated Artery/Lesion type: [place] artery [place] vs. transplanted heart: [place] heart Associated angina: without angina Impaired glucose tolerance R73.02 Hypercholesterolemia E78.00 Assessment & Plan Assessment & Plan (1) Ischemic cardiomyopathy: Code(s): I25.5 - Ischemic cardiomyopathy Category: Medical Plan: Patient has been follow-up with cardiology and planned cardiac catheterization. (2) COPD (chronic obstructive pulmonary disease): Code(s): J44.9 - Chronic obstructive pulmonary disease, unspecified Category: Medical Qualifiers: COPD type: emphysema Emphysema type: panlobular Qualified Code(s): J43.1 - Panlobular emphysema Plan: Patient has stopped smoking already on albuterol inhaler as well as Wixela (3) Chronic kidney disease (CKD): Comment: Patient follows up with Nephrology Code(s): N18.9 - Chronic kidney disease, unspecified Category: Medical Qualifiers: Chronic kidney disease stage: unspecified stage Qualified Code(s): N18.9 - Chronic kidney disease, unspecified Plan: Keep well hydrated avoid NSAIDs continue to monitor (4) GERD (gastroesophageal reflux disease): Code(s): K21.9 - Gastro-esophageal reflux disease without esophagitis Category: Medical Qualifiers: Esophagitis presence: without esophagitis Qualified Code(s): K21.9 - Gastro-esophageal reflux disease without esophagitis Plan: Avoid the foods that causes that usually spicy foods, tomato products, juices, coffee, soda and foods that your sensitive to. After eating do not lie down, allow 3-4 hours before in lie down. And keep the head of bed above 30 degrees to avoid the acid from going up. (5) Coronary artery disease: Comment: DC, circumflex stenting in 2009, unstable angina, LAD stenting in 2011. Persistent significant angina with abnormal stress test leading to 3 vessel coronary artery bypass grafting in 2012 echocardiogram September 2021Normal left ventricular cavity size. There is mildly increased left ventricular wall thickness. The left ventricular systolic function is mildly decreased. The visually estimated ejection fraction is between 40-45%. - E/E prime ratio is between 8 and 15 consistent with indeterminate filling pressures. - The basal inferior and mid inferior segments are akinetic. - Normal right ventricular cavity size and systolic function. Code(s): I25.10 - Atherosclerotic heart disease of [place] coronary artery without angina pectoris Category: Medical Qualifiers: Coronary Disease-Associated Artery/Lesion type: [place] artery [place] vs. transplanted heart: [place] heart Associated angina: without angina Qualified Code(s): I25.10 - Atherosclerotic heart disease of [place] coronary artery without angina pectoris Plan: Patient has been follow-up with cardiology and planned cardiac catheterization (6) Impaired glucose tolerance: Code(s): R73.02 - Impaired glucose tolerance (oral) Category: Medical Plan: Decrease the amount of carbohydrate intake, pasta, bread, rice and potatoes are all sugar and that is aside from all the sweet stuff, remember that fruits are good but they are Sweet also. (7) Hypercholesterolemia: Code(s): E78.00 - Pure hypercholesterolemia, unspecified Category: Medical Plan: Avoid fried foods, chicken skin, eggs, butter margarine, pastries and meat. Be it pork or beef they have a lot of cholesterol on rosuvastatin and Zetia LDL goal of around 50 Plan - Continue albuterol inhaler as needed for acute shortness of breath. - Maintain current regimen with Wexela and ensure replacement prescription is filled. - Initiate a short course of corticosteroids, following a specific dosing pattern over eight days, with instructions to take with food to alleviate respiratory distress and associated pain. - Monitor for potential side effects of increased cyclobenzaprine dosage and caution regarding drowsiness. The patient should avoid operating vehicles during treatment. - Continue management of hypercholesterolemia with rosuvastatin and Zetia, targeting an LDL goal of less than 50 mg/dL. - Advise ongoing monitoring of GERD symptoms and continue prescribed proton pump inhibitor, omeprazole. 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 - Coordinate follow-up for planned cardiac catheterization, referencing the patient's previous consultations with cardiology. - Ensure adequate pain management with prescribed medications and assess the need for further intervention if pain persists. - Encourage the discontinuation of smoking and adherence to COPD management strategies. - Educate about avoiding exacerbating factors, particularly respiratory infections, and provide guidance on symptom management at home. Medications: New prednisone 4 tabs QD x 2 days then 3 tabs QD x 2 days then 2 tabs Qd x 2 days then 1 tab QD x 2 days PO daily; 20 tabs 0RF J43.1 - Panlobular emphysema, J45.909 - Unspecified asthma, uncomplicated Changed From cyclobenzaprine 5 mg PO BEDTIME PRN 20 tabs 0RF for muscle spasm To cyclobenzaprine 10 mg PO BID PRN 30 tabs 0RF for muscle spasm Refilled furosemide (Lasix) 20 mg PO DAILY 30 tabs 2RF J43.1 - Panlobular emphysema cyclobenzaprine 10 mg PO BID PRN 30 tabs 0RF for muscle spasm furosemide (Lasix) 20 mg PO DAILY 30 tabs 2RF J43.1 - Panlobular emphysema fluticasone propion-salmeterol 250-50 mcg/dose (Wixela Inhub) 1 inh inhalation BID 60 ea 12RF J43.1 - Panlobular emphysema omeprazole 20 mg PO BID@0630,1630 180 caps 0RF
--- OUTSIDE RECORDS SUMMARY | 2024-07-05 14:54 | XMS_ITS | Continuity of Care Document ---
Author Organization [facility] Address [address] [place] [phone] Care Team Providers Care Utility System Operator Name Role Phone Boy Jorge MD Primary Care Physician [phone] [place] [facility] [place]): [place]/24 [facility] [address] [place] [phone] Encounter Type: Triage Allergies, Adverse Reactions, Alerts No Known Allergies Medications Aspir 81 Oral Enteric Coated Tablet 1 tablet = 81 mg, Chew, Daily, # 30 tablet, 3 Refills, Maintenance, 09/09/09 8:00:00 AM EDT, Chew Tablet Start Date: 09/09/09 Status: Ordered Quantity: 30.0 Unit: tablet Repeat number: 4 atorvastatin 80 mg oral tablet 1 tablet = 80 mg, By Mouth, Daily at bedtime, # 30 tablet, 2 Refills, Maintenance, 05/23/13 10:26:12AM EST, Tablet Start Date: 05/23/13 Status: Ordered Quantity: 30.0 Unit: tablet Repeat number: 3 esomeprazole 20 mg oral enteric coated capsule 1 capsule = 20 mg, By Mouth, Daily, may exchange for prilosec if not covered by insurance, # 30 capsule, 0 Refills, Maintenance, 05/23/13 10:28:16 AM EST, EC Capsule Start Date: 05/23/13 Status: Ordered Quantity: 30.0 Unit: capsule Repeat number: 1 furosemide 20 mg oral tablet 1 tablet = 20 mg, By Mouth, 2 times a day before breakfast and dinne, # 60 tablet, 2 Refills, Maintenance, 05/23/13 10:27:55 AM EST, Tablet Start Date: 05/23/13 Status: Ordered Quantity: 60.0 Unit: tablet Repeat number: 3 lisinopril 5 mg oral tablet 1 tablet = 5 mg, By Mouth, Daily in AM, # 30 tablet, 2 Refills, Maintenance, 05/23/13 10:26:27 AM EST, Tablet Start Date: 05/23/13 Status: Ordered Quantity: 30.0 Unit: tablet Repeat number: 3 metoprolol 50 mg oral tablet 1 tablet = 50 mg, By Mouth, 2 times a day, metoprolol tartate, # 60 tablet, 2 Refills, Maintenance,05/23/13 10:26:57 AM EST, Tablet Start Date: 05/23/13 Status: Ordered Quantity: 60.0 Unit: tablet Repeat number: 3 Problem List Condition Confirmation Course Effective Dates Status Health St at[facility] Informant CAD (coronary artery disease) Confirmed Active Patient Care team information Care Team Personnel Name: Boy Jorge MD Position: Reference Physician Member Role: PCP Address: [address] [place] [address] Telecom: Care Team Related Persons Name: BHUMIKA SINGH Insurance Providers Guarantor name: PANTERA Health Plan Information #: 1 Payer: [facility] Member Number: NA Policy Number: NA Group Number: NA
--- OUTSIDE RECORDS SUMMARY | 2024-07-05 14:54 | XMS_ITS | Clinical Summary ---
Author Organization [facility] Address [address] [facility] [place] [address] Phone Care Team Providers Care Electrical Timing Device Calibrator Name Role Phone Boy Jorge MD Primary Care Provider [phone] Allergies No known active allergies Medications zolpidem [...] disease 10/08/2021 Atherosclerotic heart diseas e of [place] coronary artery with angina pectoris 10/08/2021 Gastroesophageal [...] Due Date Last Done Comments Pneumococcal Vaccine: 65+ Ye ars (1 of 2 - PCV) 1966 Pneumococcal Vaccine: Pediat rics (0 to 5 Years) and At-Risk Patients (6 to 64 Years) (1 of 2 - PCV) 1966 Colorectal Cancer Screening: Annual FOBT 2008 Colorectal Cancer Screening: Colonoscopy 2008 Colorectal Cancer Screening: Sigmoidoscopy 2008 Influenza Vaccine (#1) 2024 Hepatitis B Vaccine Aged Out No longe r eligible based on patient's age to complete this topic Insurance [place] Care Teams Electrical Timing Device Calibrator Relationship Specialty Start Date End Date Boy Jorge MD [facility] [place] [address] [place], [place] PCP - General Internal Medicine 09/02/21
--- OUTSIDE RECORDS SUMMARY | 2024-07-05 14:54 | XMS_ITS | Encounter Summary ---
Author Organization [facility] Address [address] [facility] [address] [place] [address] Phone Care Team Providers Care Bridge Design Engineer Name Role Phone Boy Jorge MD Primary Care Provider Reason for Visit * Reason Comments Med Refill Encounter Details Date Type Department Care Team (Late st Contact Info) Description 01/22/2024 Refill [facility] [address] [place] [phone] Bairon Redman MD [address] [facility] [address] [place] [phone] Social History Tobacco Use Types Packs/Day Years [...] on filedocumented in this encounter Care Teams Bridge Design Engineer Relationship Specialty Start Date End Date Boy Jorge MD [facility] [facility] [place] [address] [place] PCP - General Internal Medicine 09/02/21 documented as of this encounter
--- OUTSIDE RECORDS SUMMARY | 2024-07-05 14:54 | XMS_ITS | Encounter Summary ---
Author Organization [facility] Address [address] [facility] [address] [place] [address] Phone Care Team Providers Care Program Coordinator For Residence Life Name Role Phone Boy Jorge MD Primary Care Provider [phone] Reason for Visit * Reason Comments Med Refill Encounter Details Date Type Department Care Team (Late st Contact Info) Description 01/14/2024 Refill [facility] [address] [place] [phone] Bairon Redman MD [address] [facility] [address] [place] [phone] Social History Tobacco Use Types Packs/Day Years [...] on filedocumented in this encounter Care Teams Program Coordinator For Residence Life Relationship Specialty Start Date End Date Boy Jorge MD [facility] [facility] [place] [address] [place] PCP - General Internal Medicine 09/02/21 documented as of this encounter
== END 2024-07-05 12:58 | disposition home or self-care (01) ==
PROVIDERS: PCP Internal Medicine; Visit Provider Internal Medicine
DX: I25.5 Ischemic cardiomyopathy (principal); J43.1 Panlobular emphysema; N18.9 Chronic kidney disease, unspecified; K21.9 Gastro-esophageal reflux disease without esophagitis; I25.10 Atherosclerotic heart disease of native coronary artery without angina pectoris; R73.02 Impaired glucose tolerance (oral); E78.00 Pure hypercholesterolemia, unspecified

== ENCOUNTER → 2024-07-05 12:17 | Outpatient (BNVA) | payer MEDICARE, SELFPAY | PROVIDERS: PCP Internal Medicine; Visit Provider Internal Medicine | DX: I25.5 Ischemic cardiomyopathy (principal); J43.1 Panlobular emphysema; N18.9 Chronic kidney disease, unspecified; K21.9 Gastro-esophageal reflux disease without esophagitis; I25.10 Atherosclerotic heart disease of native coronary artery without angina pectoris; R73.02 Impaired glucose tolerance (oral); E78.00 Pure hypercholesterolemia, unspecified | CPT/HCPCS: 99212 ==

== ENCOUNTER 2024-08-01 10:47 | Inpatient (IN) | payer MEDICARE, MEDICAID, SELFPAY ==
[2024-08-01] VITALS (8 sets, daily range): BP systolic 109–203; BP diastolic 49–98; PULSE 90–111; RESP 11–18; TEMP 36.4–36.6; O2SAT 92–97; BMI 30.4
--- NOTE | 2024-08-01 | ECG_ITS ---
Test Reason : CHEST PAIN Blood Pressure : */* mmHG Vent. 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
--- NOTE | ~2024-08-01 | XR_ITS ---
EXAMINATION: XR CHEST CLINICAL INFORMATION: cp/sob COMPARISON: 05/29/2024. TECHNIQUE: Frontal view of the chest was obtained. FINDINGS: There has been prior CABG and sternotomy. The cardiac size is normal. Mediastinal and hilar contours are normal. The lungs are diffusely hyperaerated bilaterally. There is similar appearing left base scarring with mild tenting of the left hemidiaphragm. No pneumothorax or effusion. No focal osseous or soft tissue abnormality. There are vascular calcifications in the soft tissues. XR/XR chest 1V IMPRESSION: 1. COPD with stable left base scarring. No active superimposed pulmonary disease. 2. Prior sternotomy and CABG. Electronically signed by: Eliu Hernandez MD 08/01/2024 11:53 AM EDT
--- NOTE | ~2024-08-01 | NM_ITS ---
EXAMINATION: NM BONE SCAN OF THE WHOLE BODY CLINICAL INFORMATION: Acute to subacute compression fracture T5 with sclerosis. Subacute to chronic compression fracture T7. COMPARISON: CTPA chest 08/01/2024. TECHNIQUE: Multiple gamma scintillation camera images of the whole body were performed 3 and 1/4 hours following the intravenous administration of 32 mCi Tc-99m MDP. FINDINGS: In the head, mild paranasal sinus region uptake noted, as well as mild dental uptake noted. No pathological uptake. In the thoracic cage and upper extremities, no pathological uptake identified. Degenerative uptake identified in the bilateral cysts shoulder joints, and sternoclavicular joints. In the spine, there is intense uptake involving T5 and T7, suggesting acute/subacute fractures. There is otherwise mild degenerative uptake in the cervical and thoracic spine. No additional pathological uptake. In the pelvis, no abnormal or pathologic bony uptake. In the lower extremities, mild degenerative uptake in bilateral knees, ankles, and feet. No pathological uptake No other definite bony abnormalities are noted. The urinary bladder and faint visualization of both kidneys are noted. No abnormal soft tissue uptake. NM/NM bone scan whole body IMPRESSION: 1. Intense uptake involving T5 and T7, confirming acute/subacute nature of fractures. In review of the recent CT PA examination of the chest, both fractures appear acute/subacute, and there is diffuse sclerosis throughout the T5 vertebral body highly suspicious for pathological fracture. 2. There are no additional pathological regions of skeletal uptake identified. Electronically signed by: Eliu Hernandez MD 08/02/2024 04:42 PM EDT
--- NOTE | ~2024-08-01 | XR_ITS ---
EXAMINATION: XR CHEST CLINICAL INFORMATION: hypoxia COMPARISON: August 01, 2024. TECHNIQUE: Frontal view of the chest was obtained. FINDINGS: Pulmonary reticular pattern. Low lung volume. Linear opacities in the left lower hemithorax. No consolidation, pleural effusion or pneumothorax. Cardiomediastinal silhouette size is normal. Sternal wires and mediastinal vascular clips likely CABG procedure. Unable to evaluate the axial skeleton due to patient's body habitus. XR/XR chest 1V IMPRESSION: Subsegmental atelectasis versus scarring, left lung base. Chronic lung disease. Electronically signed by: Kiran Walsh MD 08/05/2024 07:46 AM EDT
--- NOTE | ~2024-08-01 | MR_ITS ---
CLINICAL HISTORY: dilated CBD ?panc mass MRI of the abdomen with and without IV contrast. COMPARISON: CT abdomen and pelvis dated 08/03/24 at 09:45 EDT FINDINGS: T2 hyperintense, T1 hypointense lesion within segment II measuring 2.5 x 2.3 cm with increasing nodular peripheral enhancement over delayed imaging consistent with a hemangioma. Uniform splenic signal. Normal adrenal glands. Symmetric renal size. Bilateral renal cystic lesions measuring up to 0.9 cm on the left and 0.8 cm on the right. No hydronephrosis. Visualized portions of the bowel in the upper abdomen are unremarkable. Duodenal diverticulum present along the 2nd portion. Uniform pancreatic signal. No peripancreatic edema. Pancreatic duct is normal in caliber measuring up to 2 mm. No loss of enhancement or enhancing lesion identified within the pancreas. No pericholecystic inflammatory changes. Common bile duct is dilated measuring up to 9 mm. Mild intrahepatic biliary ductal dilatation primarily within the left hepatic lobe. Choledocholithiasis present within the distal common bile duct measuring 3 mm. IMPRESSION: 1. Dilated common bile duct with mild intrahepatic biliary ductal dilatation. Choledocholithiasis present in the distal common bile duct measuring 3 mm. 2. No evidence of pancreatitis. No evidence of cholecystitis. 3. Hemangioma present within segment II of the liver measuring 2.5 cm. 4. Bilateral simple renal cysts. This document has been electronically signed by: Arnel Marina MD on 08/03/2024 18:24:33
--- NOTE | ~2024-08-01 | CT_ITS ---
CLINICAL HISTORY: b l back pain, hx CAD. pleuritic pain CT ANGIOGRAPHY CHEST AND ABDOMEN WITH CONTRAST. 3-D POSTPROCESSING. Comparison: CT/SR - CT CHEST WO IV CON - 01/19/23 16:44 EDT Findings: Extensive atherosclerotic changes throughout the aorta. No aortic aneurysm or dissection. Dense calcific plaque in the coronary, mesenteric and renal arteries. No pulmonary arterial filling defect. The thyroid gland is not well-visualized. No lymphadenopathy. The heart is normal size. Median sternotomy. Stable left lower lobe pleural-parenchymal scarring. Centrilobular emphysematous changes. No consolidation, pleural effusion or pneumothorax. Diffuse fatty infiltration of the liver. 2.3 cm left hepatic lesion with peripheral nodular enhancement is most suggestive of a hemangioma. Nonspecific bilateral perinephric stranding. No hydronephrosis or intrarenal calculus. Spleen, pancreas and adrenal glands are unremarkable. No large calcified gallstone. The common bile duct measures 1 cm. No ascites or significant mesenteric edema. There are several large duodenal diverticula. There are moderate compression deformities in T5 and T7 associated with sclerotic changes.No significant bony retropulsion. There is an irregular defect in the spinous process of T4. IMPRESSION: 1. No aortic aneurysm or dissection. 2. No definite pulmonary embolus. 3. Left lower lobe pleural-parenchymal scarring. No segmental pneumonia or significant pleural effusion. 4. Acute to subacute T5 compression fracture. Subacute to chronic T7 compression fracture. Sclerotic changes raise the possibility of underlying pathology. 5. Acute to subacute nondisplaced T4 spinous process fracture. 6. Dilated common bile duct with no visible choledocholithiasis. 7. Hepatic steatosis. This document has been electronically signed by: Aneta Unger DO on 08/01/2024 18:30:39
--- NOTE | ~2024-08-01 | CT_ITS ---
EXAMINATION: CT ABDOMEN PELVIS WITH IV CONTRAST HISTORY: malignancy, unknown primary COMPARISON: Correlation is made with a CT angiogram of the abdominal aorta dated 08/01/2024. TECHNIQUE: CT scan of the abdomen and pelvis was performed following administration of 85 mL Omnipaque 350 using standard departmental protocol. Coronal and sagittal reformatted images were generated and reviewed. Oral contrast material was not administered at the request of the referring physician. This CT exam was performed with one or more of the following dose reduction techniques: automated exposure control, adjustment of the mA and/or kV according to patient size, use of iterative reconstruction technique. DLP: 425 mGy-cm FINDINGS: LOWER CHEST: Again seen is scarring at the left lung base. There is no pleural effusion. CARDIOVASCULATURE: The heart is normal in size. There is no pericardial effusion. LIVER: The liver is normal in size and contour. No liver mass is identified. The hepatic and portal veins are patent. GALLBLADDER / BILE DUCTS: The gallbladder is unremarkable. There is no intra biliary ductal dilatation. There is mild dilatation of the distal common bile duct the pancreatic head.. SPLEEN: The spleen is normal in size. No focal splenic lesion is identified. PANCREAS: The pancreas is unremarkable in appearance. ADRENAL GLANDS: Within normal limits. KIDNEYS/RETROPERITONEUM: No renal calculi are identified. There is no hydronephrosis. There is a probable subcentimeter cyst in the interpolar region of the right kidney. LYMPH NODES: No abdominal or pelvic lymphadenopathy. VASCULATURE: The abdominal aorta demonstrates atherosclerotic calcification, but is normal in caliber. MESENTERY/PERITONEUM: No free fluid. No masses. There is no free intraperitoneal gas. STOMACH: The stomach is collapsed, limiting evaluation. SMALL BOWEL: The small bowel is normal in caliber. COLON: There is a large amount of stool throughout the colon. There is an area of wall thickening versus underdistention involving ascending colon. APPENDIX: Normal. URINARY BLADDER/PELVIC ORGANS: The urinary bladder is unremarkable. There are calcifications of the prostate. BONES / SOFT TISSUES: No suspicious bony or soft tissue abnormalities. CT/CT abdomen pelvis w IV con IMPRESSION: 1. Mild dilatation of the distal common bile duct in the pancreatic head of uncertain significance. If there is clinical concern for pathology in this region, MRI could be performed. 2. Large amount of stool throughout the colon. Area of wall thickening versus underdistention involving the ascending colon. This could be further evaluated with colonoscopy if indicated. Electronically signed by: Johnny Yu MD 08/03/2024 10:29 AM EDT
--- NOTE | ~2024-08-01 | US_ITS ---
EXAMINATION: US ABDOMEN LIMITED CLINICAL INFORMATION: Check gallbladder for stones.. COMPARISON: Correlated to CT dated August 03, 2024. TECHNIQUE: Real-time imaging of the gallbladder. Limited. FINDINGS: Gallbladder is fluid-filled. No pericholecystic fluid collection or gallbladder wall thickening. Common bile duct measures 9 mm. There is a probable 8 mm calculus in the distal common bile duct. US/US abdomen limited IMPRESSION: Concerning choledocholithiasis. Please refer to the recent MRI dated August 03, 2024.. Electronically signed by: Kiran Walsh MD 08/05/2024 12:39 PM EDT
--- NOTE | 2024-08-01 11:30 | ED.GENADULT ---
HPI - General Adult General Chief complaint: Chest Pain Stated complaint: CP Time Seen by Provider: 08/01/24 11:11 Source: patient, EMS, RN notes reviewed and old records reviewed Mode of arrival: EMS History of Present Illness ED Provider: Danisha Ortiz PA-C HPI narrative: 64-year-old male with a past medical history ischemic cardiomyopathy, heart failure with reduced EF, COPD CAD s/p bypass and stenting, GERD, HLD, HTN, presenting to the ED via EMS complaining of chest pain, described as sharp beneath both scapulas, and SOB x 4 days. Reports pain is constant, worse with palpation, movement, breathing. Also reports exertional dyspnea. Denies pedal edema, calf tenderness, nausea, vomiting, abdominal pain Related Data Home Medications ?Medication ?Instructions ?Recorded ?Confirmed aspirin 81 mg tablet,delayed 81 mg PO DAILY 09/10/21 07/05/24 release Previous Rx's ?Medication ?Instructions ?Recorded isosorbide mononitrate 30 mg 30 mg PO DAILY 90 days #90 tabs 09/08/23 tablet,extended release 24 hr rosuvastatin 40 mg tablet 40 mg PO DAILY 90 days #90 tabs 05/02/24 ezetimibe 10 mg tablet 10 mg PO DAILY #90 tabs 05/09/24 albuterol sulfate 90 mcg/actuation 2 puff inhalation Q6H PRN 06/01/24 aerosol inhaler (Ventolin HFA) shortness of breath or wheezing #8.5 grams cyclobenzaprine 10 mg tablet 10 mg PO BID PRN for muscle spasm 07/05/24 #30 tabs fluticasone 250 mcg-salmeterol 50 1 inh inhalation BID #60 ea 07/05/24 mcg/dose blistr powdr for inhalation (Wixela Inhub) furosemide 20 mg tablet (Lasix) 20 mg PO DAILY #30 tabs 07/05/24 omeprazole 20 mg capsule,delayed 20 mg PO BID@0630,1630 #180 caps 07/05/24 release prednisone 10 mg tablet See Rx Instructions PO DAILY #20 07/05/24 tabs amlodipine 5 mg tablet 5 mg PO DAILY #90 tabs 07/13/24 metoprolol succinate 50 mg 50 mg PO DAILY 90 days #90 tabs 07/17/24 tablet,extended release 24 hr cyclobenzaprine 10 mg tablet 10 mg PO TID PRN muscle spasm #14 03/24/25 tabs lidocaine 5 % topical patch 1 patch topical DAILY PRN pain #30 08/01/24 (Lidoderm) ea prednisone 20 mg tablet 40 mg (2 x 20 mg) PO DAILY 5 days 08/01/24 #10 tabs Allergies Allergy/AdvReac Type Severity Reaction Status Date / Time ARB-Angiotensin Receptor AdvReac Severe [place]ORD Verified 08/01/24 11:10 Antagonist MALVIN Inhibitors AdvReac Intermediate [place] Verified 08/01/24 11:10 Review of Systems Review of Systems: Yes all other systems are reviewed and are negative Constitutional: Constitutional: Reports as per [facility] Past Medical History Attestation statement: The following information was validated with the patient. Source: old records reviewed Medical History Colon cancer screening Obesity (BMI 30-39.9) Tobacco abuse Heart failure with reduced ejection fraction Adult general medical exam Screening for prostate cancer Ischemic cardiomyopathy Colonoscopy refused Umbilical hernia COPD (chronic obstructive pulmonary disease) Coronary artery disease GERD (gastroesophageal reflux disease) Hypercholesterolemia Insomnia Hypertension Surgical History Hx of CABG Family History Family History Father No problems noted. Mother No problems noted. Sister No problems noted. Sister No problems noted. Brother No problems noted. Brother Myocardial infarct Liver cancer Social History Social History Household Members: Other Household Members Other:: brother Housing: House Do you presently have visiting nurse or other home services: Yes Alcohol intake: current Alcohol intake frequency: 3 or more drinks per day Alcohol type: beer Patient Tobacco Use Status: Former Tobacco user Tobacco use type: Cigarette Cigarettes Per Day: 10 Smoked in Last 30 Days: No e-Cigarette/Vaping Use: Never Used Second Hand Smoke Exposure: No Use of substances other than those prescribed or required for medical reasons: No Substance Use Type: Marijuana Advance Directives: Yes Advance Directives on File: Yes Advance Directives Date on File: 01/07/23 service: No Current occupational status: disabled Cognitive needs: No Hearing needs: No Vision needs: Yes Physical Exam ED Vital Signs: Vital Signs - 24 hr 08/01/24 11:10 08/01/24 11:53 08/01/24 12:31 Temperature 98 F Pulse Rate 111 H 97 99 Respiratory Rate 11 L Blood Pressure 140/79 H 140/49 H Pulse Oximetry 95 Oxygen Delivery Method Room Air 08/01/24 13:28 08/01/24 14:05 Temperature 97.6 F Pulse Rate 97 99 Respiratory Rate 18 16 Blood Pressure 171/80 H Pulse Oximetry 97 95 Oxygen Delivery Method Room Air Room Air BMI result Body Mass Index 30.4 Const General: cooperative, healthy appearing and no acute distress Orientation/consciousness: patient oriented x3 Limitations: no limitations HENMT Head: Yes normal to inspection and Yes atraumatic Ears: hearing grossly normal bilaterally General nose exam: Normal external nose present Face and sinus: Yes normal facial exam Eyes General: appearance normal, both eyes and all related structures EOM: EOMs intact bilaterally Neck Neck: Yes normal visual inspection and Yes no meningeal signs Chest Other: + bilateral lower scapular regions. No erythema, rash, crepitus or ecchymosis Chest palpation & inspection: normal inspection of the chest and tenderness Resp Effort & Inspection: normal respiratory effort and no respiratory distress Auscultation: diminished lung sounds (Throughout) Cardio Rate: regular rate Heart sounds: S1 normal heart sound present and S2 normal heart sound present GI Inspection: Yes normal to inspection Palpation (GI): Soft to palpation, nontender, no guarding and not rigid General: Yes no CVA tenderness Back/Spine/Pelvis Back: no CVA tenderness Skin Rashes: no rashes Wounds: no wounds Neuro General: patient oriented x3, tone normal and no meningeal signs Cranial nerves: Yes CN's II-XII intact bilaterally Gait exam (Neuro): Normal gait present Extrem Other: 1+ bilateral LE edema General: Yes normal to inspection Course Course Course Narrative: XR chest 1V IMPRESSION: 1. COPD with stable left base scarring. No active superimposed pulmonary disease. 2. Prior sternotomy and CABG. -no leukocytosis. H/H stable. D-dimer negative > PE unlikely -chronic transaminitis likely from ETOH abuse -troponin 11.9 > will obtain repeat -Viral studies negative -1534--repeat troponin without significant rise > mi unlikely >> on re-evaluation patient reports continued significant pain/discomfort. Will obtain CT for further eval 1630--ED care transferred to [facility] pending CT and dispo per results Medications Administered Discontinued Medications Generic Name Dose Route Start Last Admin Trade Name Philomena PRN Reason Stop Dose Admin Acetaminophen 975 mg 08/01/24 14:09 08/01/24 14:11 Acetaminophen 325 Mg Tablet PO 08/01/24 14:10 975 mg ONCE ONE Administration Albuterol Sulfate 2.5 mg/ 0 mg 08/01/24 11:52 08/01/24 11:56 Albuterol/Ipratropium 3 ml INHALE 08/01/24 11:53 5 dose ONCE ONE Administration Cyclobenzaprine HCl 10 mg 08/01/24 15:37 08/01/24 15:46 Cyclobenzaprine Hcl 10 Mg Tablet PO 08/01/24 15:38 10 mg ONCE ONE Administration Lidocaine 1 patch 08/01/24 15:37 08/01/24 15:46 Lidocaine 4 % Patch Adh..Patch TRANSDERMA 08/01/24 15:38 1 patch ONCE ONE Administration Protocol Morphine Sulfate 2 mg 08/01/24 11:28 08/01/24 11:34 Morphine Sulfate 2 Mg/Ml Cartridge IVPUSH 08/01/24 11:29 2 mg ONCE ONE Administration Protocol Morphine Sulfate 2 mg 08/01/24 12:27 08/01/24 12:31 Morphine Sulfate 2 Mg/Ml Cartridge IVPUSH 08/01/24 12:28 2 mg ONCE ONE Administration Protocol Medical Decision Making Medical Decision Making MDM Narrative: 64-year-old male with a past medical history ischemic cardiomyopathy, heart failure with reduced EF, COPD CAD s/p bypass and stenting, GERD, HLD, HTN, presenting to the ED via EMS complaining of chest pain, described as sharp beneath both scapulas, and SOB x 4 days. Reports pain is constant, worse with palpation, movement, breathing. Also reports exertional dyspnea. On exam tachycardic, diminished lung sounds throughout, reproducible back pain as depicted above. 1+ bilateral LE edema. Concern for ACS vs CHF vs PE vs viral illness or pneumonia. Lower suspicion for dissection at this time. Unlikely DVT. Low suspicion for severe sepsis Plan: EKG, labs, CXR, viral testing, pain medication, re-evaluate Please refer to course for remaining clinical decision making, interpretation of labs/imaging results, and discussions with consultants and/or family members. Differential Diagnosis Differential Diagnoses: The differential diagnosis associated with the presentation includes As above Admission/Observation Consideration of admission/observation: Escalation of care including admission/observation considered Lab Data MDM Lab Attestation statement: I reviewed the patient's lab results. 08/01/24 12:10 08/01/24 12:11 Labs: Lab Results 08/01/24 08/01/24 08/01/24 Range/Units 12:05 12:07 12:10 WBC 6.2 (4.8-10.8) X10*3/uL RBC 4.91 (4.60-5.80) X10*6/uL Hgb 15.9 (14.0-18.0) g/dl Hct 45.8 (42.0-52.0) % MCV 93.3 (80.0-98.0) fL MCH 32.4 (27.0-33.0) pg MCHC 34.7 (31.0-36.0) g/dl RDW 13.9 (11.0-16.0) % Plt Count 158 L (160-400) X10*3/uL MPV 9.8 (9.4-12.4) fL Immature Gran % (Auto) 0.2 (0.0-0.4) % Neut % (Auto) 76.2 H (45-73) % Lymph % (Auto) 14.1 L (20-40) % Gem % (Auto) 7.9 (2-11) % Eos % (Auto) 1.3 (0-4) % Baso % (Auto) 0.3 (0-2) % Lymph # (Auto) 0.9 L (1.2-4.9) X10*3/uL Gem # (Auto) 0.5 (0.1-1.2) X10*3/uL Eos # (Auto) 0.1 (0.0-0.4) X10*3/uL Baso # (Auto) 0.0 (0.0-0.2) X10*3/uL Abs Immat Gran (auto) 0.01 (0.00-0.03) X10*3/uL Absolute Neuts (auto) 4.7 (2.0-8.3) x10*3/uL Absolute Nucleated RBC 0.000 (0.0-0.012) X10*3/uL Nucleated RBC % (auto) 0.0 (0.0-0.2) /100WBC PT 11.2 (10.9-12.4) SEC INR 1.0 (0.9-1.1) D-Dimer High Sensitivty 180 NG/ML Sodium (135-145) mmol/L Potassium (3.3-5.1) mmol/L Chloride (96-108) mmol/L Carbon Dioxide (22-29) mmol/L Anion Gap (12-20) BUN (9-16) mg/dL Creatinine (0.5-1.4) mg/dL Estim Creat Clear Calc Estimated GFR Random Glucose (60-115) mg/dL Calcium (8.4-10.2) mg/dL Magnesium (1.6-2.6) mg/dL Total Bilirubin (0.0-1.0) mg/dL Direct Bilirubin (0.0-0.5) mg/dL AST (5-37) U/L ALT (0-40) U/L Alkaline Phosphatase (39-117) U/L Troponin I High Sens (<3.5-35.0) ng/L B-Natriuretic Peptide 220 H (<100) pg/mL Total Protein (6.5-8.0) g/dL Albumin (3.5-5.0) g/dL Influenza Type A (PCR) NEGATIVE (Negative) Influenza Type B (PCR) NEGATIVE (Negative) RSV RNA Qual (PCR) NEGATIVE (Negative) SARS-CoV-2 RNA (RT-PCR) NEGATIVE (Negative) 08/01/24 08/01/24 Range/Units 12:11 14:59 WBC (4.8-10.8) X10*3/uL RBC (4.60-5.80) X10*6/uL Hgb (14.0-18.0) g/dl Hct (42.0-52.0) % MCV (80.0-98.0) fL MCH (27.0-33.0) pg MCHC (31.0-36.0) g/dl RDW (11.0-16.0) % Plt Count (160-400) X10*3/uL MPV (9.4-12.4) fL Immature Gran % (Auto) (0.0-0.4) % Neut % (Auto) (45-73) % Lymph % (Auto) (20-40) % Gem % (Auto) (2-11) % Eos % (Auto) (0-4) % Baso % (Auto) (0-2) % Lymph # (Auto) (1.2-4.9) X10*3/uL Gem # (Auto) (0.1-1.2) X10*3/uL Eos # (Auto) (0.0-0.4) X10*3/uL Baso # (Auto) (0.0-0.2) X10*3/uL Abs Immat Gran (auto) (0.00-0.03) X10*3/uL Absolute Neuts (auto) (2.0-8.3) x10*3/uL Absolute Nucleated RBC (0.0-0.012) X10*3/uL Nucleated RBC % (auto) (0.0-0.2) /100WBC PT (10.9-12.4) SEC INR (0.9-1.1) D-Dimer High Sensitivty NG/ML Sodium 137 (135-145) mmol/L Potassium 3.8 (3.3-5.1) mmol/L Chloride 102 (96-108) mmol/L Carbon Dioxide 25 (22-29) mmol/L Anion Gap 14 (12-20) BUN 14 (9-16) mg/dL Creatinine 1.00 (0.5-1.4) mg/dL Estim Creat Clear Calc 80.5 Estimated GFR > 60 Random Glucose 135 H (60-115) mg/dL Calcium 9.8 D (8.4-10.2) mg/dL Magnesium 2.1 (1.6-2.6) mg/dL Total Bilirubin 0.8 (0.0-1.0) mg/dL Direct Bilirubin 0.5 (0.0-0.5) mg/dL AST 88 H (5-37) U/L ALT 170 H (0-40) U/L Alkaline Phosphatase 175 H (39-117) U/L Troponin I High Sens 11.9 D 16.9 (<3.5-35.0) ng/L B-Natriuretic Peptide (<100) pg/mL Total Protein 7.9 (6.5-8.0) g/dL Albumin 4.1 (3.5-5.0) g/dL Influenza Type A (PCR) (Negative) Influenza Type B (PCR) (Negative) RSV RNA Qual (PCR) (Negative) SARS-CoV-2 RNA (RT-PCR) (Negative) Independent Interpretation I performed an independent interpretation of an: EKG (My interpretation EKG sinus rhythm with marked sinus arrhythmia rate of 98. NV interval 168. QTC 492. No STEMI. Old RBBB. Old ST depressions.) and Plain X-Ray Radiology Impression Discussion of test interpretation with radiology: I have reviewed the radiologist's reading. Independent Historian Clinical information obtained from an independent historian. History obtained from or confirmed by: EMS External Record Review External record reviewed: Inpatient record, Office record, Outpatient record, Prior outpatient labs, Prior outpatient radiology, Primary care record and Outside ED record Tests considered The following testing was considered but not selected: As above Prescription Management I considered prescription management with: Pain Medication Chronic Conditions Patient?s care impacted by: Hypertension and Other (CKD, COPD) Social Determinants Patient?s care significantly limited by Social Determinants of Health including: Other Social Determinant of Health Discharge Plan Discharge Clinical Impression: COPD (chronic obstructive pulmonary disease), Back pain Patient Disposition: Home, Self-Care Instructions: COPD (Chronic Obstructive Pulmonary Disease) (DC), Back Pain (ED) Additional Instructions: Your blood work and chest x-ray are reassuring You tested negative for COVID, flu, RSV Prednisone as a steroid which will help with her COPD Cyclobenzaprine is a muscle relaxer, this will make you drowsy, do not drive, drink alcohol, or operate machinery while taking Lidoderm patches or numbing patches, apply to painful area Please have close follow-up with your primary care doctor If her symptoms persist or worsen or pain becomes unbearable return to the ED Prescriptions: New cyclobenzaprine 10 mg tablet 10 mg PO TID PRN (Reason: muscle spasm) Qty: 14 0RF lidocaine [Lidoderm] 5 % adhesive patch,medicated 1 patch topical DAILY MDD remove after 12 hours PRN (Reason: pain) Qty: 30 0RF Rx Instructions: leave on most painful area for up to 12 hrs prednisone 20 mg tablet 40 mg PO DAILY 5 Days Qty: 10 0RF No Action isosorbide mononitrate 30 mg tablet extended release 24 hr 30 mg PO DAILY 90 Days Qty: 90 3RF rosuvastatin 40 mg tablet 40 mg PO DAILY 90 Days Qty: 90 2RF ezetimibe 10 mg tablet 10 mg PO DAILY Qty: 90 3RF albuterol sulfate [Ventolin HFA] 90 mcg/actuation HFA aerosol inhaler 2 puff inhalation Q6H PRN (Reason: shortness of breath or wheezing) Qty: 8.5 0RF amlodipine 5 mg tablet 5 mg PO DAILY Qty: 90 0RF metoprolol succinate 50 mg tablet extended release 24 hr 50 mg PO DAILY 90 Days Qty: 90 2RF aspirin 81 mg Tablet,Delayed Release (Dr/Ec) 81 mg PO DAILY fluticasone propion-salmeterol [Wixela Inhub] 250-50 mcg/dose blister with device 1 inh inhalation BID Qty: 60 12RF omeprazole 20 mg capsule,delayed release(DR/EC) 20 mg PO BID@0630,1630 Qty: 180 0RF cyclobenzaprine 10 mg tablet 10 mg PO BID PRN (Reason: for muscle spasm) Qty: 30 0RF furosemide [Lasix] 20 mg tablet 20 mg PO DAILY Qty: 30 2RF prednisone 10 mg tablet See Rx Instructions PO DAILY Qty: 20 0RF Rx Instructions: 4 tabs QD x 2 days then 3 tabs QD x 2 days then 2 tabs Qd x 2 days then 1 tab QD x 2 days PO daily; Referrals: [facility] – [place] [facility] [Provider Group] Boy Jorge MD [Primary Care Provider] - 1 week Print Language: Ethiopian
[2024-08-01] MEDS: Morphine Sulfate 2 MG/ML CARTRIDGE IVPUSH ×2 (11:34→12:31)
[2024-08-01] MEDS: Albuterol Sulfate 2.5 MG, Albuterol/Iprat 2.5/0.5MG 3 ML 3 ML INHALE (11:56)
[2024-08-01 12:15] LABS: MANUAL DIFF FLAG NO
[2024-08-01 12:20] LABS: Basophils Percent Auto 0.3 % (0-2); Eosinophils Absolute Auto 0.1 X10*3/uL (0.0-0.4); Eosinophils Percent Auto 1.3 % (0-4); Hematocrit 45.8 % (42.0-52.0); Hemoglobin 15.9 g/dl (14.0-18.0); Imm Gran Abs Auto 0.01 X10*3/uL (0.00-0.03); Imm Gran Pct Auto 0.2 % (0.0-0.4); Lymphocytes Absolute Auto 0.9 X10*3/uL (1.2-4.9); Lymphocytes Percent Auto 14.1 % (20-40); Mean Corpuscular HGB Conc 34.7 g/dl (31.0-36.0); Mean Corpuscular Hemoglobin 32.4 pg (27.0-33.0); Mean Corpuscular Volume 93.3 fL (80.0-98.0); Mean Platelet Volume 9.8 fL (9.4-12.4); Monocytes Absolute Auto 0.5 X10*3/uL (0.1-1.2); Monocytes Percent Auto 7.9 % (2-11); Neutrophils Absolute Auto 4.7 x10*3/uL (2.0-8.3); Neutrophils Percent Auto 76.2 % (45-73); Platelet Count 158 X10*3/uL (160-400); Red Blood Count 4.91 X10*6/uL (4.60-5.80); Red Cell Distribution Width 13.9 % (11.0-16.0); White Blood Count 6.2 X10*3/uL (4.8-10.8)
[2024-08-01 12:26] LABS: Prothrombin Time 11.2 SEC (10.9-12.4)
[2024-08-01 12:29] LABS: D Dimer High Sensitivity 180 NG/ML
[2024-08-01 12:34] LABS: Alanine Aminotransferase 170 U/L (0-40); Albumin Level 4.1 g/dL (3.5-5.0); Alkaline Phosphatase 175 U/L (39-117); Anion Gap 14 (12-20); Aspartate Amino Transferase 88 U/L (5-37); Bilirubin Direct 0.5 mg/dL (0.0-0.5); Bilirubin Total 0.8 mg/dL (0.0-1.0); Blood Urea Nitrogen 14 mg/dL (9-16); Calcium 9.8 mg/dL (8.4-10.2); Carbon Dioxide 25 mmol/L (22-29); Chloride 102 mmol/L (96-108); Creatinine Clr Calc Pharmacy 80.5; Estimated Glomerular Filt Rate > 60; Glucose Random 135 mg/dL (60-115); Magnesium 2.1 mg/dL (1.6-2.6); Potassium 3.8 mmol/L (3.3-5.1); Sodium 137 mmol/L (135-145); Total Protein 7.9 g/dL (6.5-8.0)
[2024-08-01 12:37] LABS: B Type Natriuretic Peptide 220 pg/mL (<100)
[2024-08-01 12:38] LABS: Troponin-I High Sensitivity 11.9 ng/L (<3.5-35.0)
[2024-08-01 13:10] LABS: Influenza A PCR NEGATIVE (Negative); Influenza B PCR NEGATIVE (Negative); Resp Syncy Virus RNA Qual PCR NEGATIVE (Negative); SARS COV2 PCR INHOUSE NEGATIVE (Negative)
[2024-08-01] MEDS: Acetaminophen 325 MG TABLET 975 MG PO (14:11)
[2024-08-01 15:29] LABS: Troponin-I High Sensitivity 16.9 ng/L (<3.5-35.0)
[2024-08-01] MEDS: Lidocaine 4 % Patch ADH..PATCH 1 PATCH TRANSDERMA (15:46)
[2024-08-01] MEDS: Cyclobenzaprine HCl 10 MG TABLET PO (15:46)
[2024-08-01] MEDS: HYDROmorphone HCl 0.5 MG/0.5 ML SYRINGE IVPUSH (17:37)
[2024-08-01] MEDS: iohexoL 350 MG/ML 100 ML INFUS..BTL IV (17:41)
--- NOTE | 2024-08-01 19:55 | PM.IMHP ---
History of Present Illness Date of Service: 08/01/24 Attending physician on admission: Farideh Ballesteros Chief Complaint: back pain 64-year-old male with a past medical history ischemic cardiomyopathy, heart failure with reduced EF, COPD CAD s/p bypass and stenting, GERD, HLD, HTN recently treated for COPD exacerbation by PCP presented to the ED earlier today for evaluation of sob and severe back pain ongoing x 4 days. He states when he takes a deep breath or coughs pain significantly worsens. However, significant pain/discomfort at rest, rates 10/10. It is constant and worsens with any movement, breathing, palpation. Localizes to the mid back midline and bilateral. No radiation of the pain. No paresthesias, weakness, saddle anesthesia, bowel/bladder dysfunction. He denies any known injury. Reports he feels short of breath as he is unable to take a deep breath without significant pain. Reports cough has baseline, no expectoration. No fevers, chills, sore throat, congestion, sick contacts, palpitations, or chest pain. Since arrival, he has been hypertensive, admission 174/85. Vital signs otherwise stable. Hematology studies unremarkable. Renal function electrolyte levels are normal. AST 88, ALT 170, alkaline phosphatase 175. Troponins flat. BNP 220. Negative for COVID-19, RSV, influenza. CTA of the chest negative for any aortic dissection or aneurysm. No PE identified. There is left lower lobe pleural parenchymal scarring but no pneumonia or effusion. There is an acute to subacute T5 compression fracture and subacute to chronic T7 compression fracture with sclerotic changes raising the possibility of underlying pathology/malignancy. There is also an acute to subacute nondisplaced T4 spinous process fracture. In the ED, he has received multiple doses of IV morphine, hydromorphone, cyclobenzaprine with limited improvement. He will be admitted for further management of intractable back pain secondary to multiple compression fractures. He is noted to be tremulous on exam. He states he feels this is secondary to hunger and pain. Reports drinking 4 beers on a daily basis. Denies any illicit drug use but does smoke marijuana occasionally. He is a former cigarette smoker. Review of Systems Review of Systems: Yes all other systems are reviewed and are negative [facility] Medical History Colon cancer screening Obesity (BMI 30-39.9) Tobacco abuse Heart failure with reduced ejection fraction Adult general medical exam Screening for prostate cancer Ischemic cardiomyopathy Colonoscopy refused Umbilical hernia COPD (chronic obstructive pulmonary disease) Coronary artery disease GERD (gastroesophageal reflux disease) Hypercholesterolemia Insomnia Hypertension Family History Father No problems noted. Mother No problems noted. Sister No problems noted. Sister No problems noted. Brother No problems noted. Brother Myocardial infarct Liver cancer Surgical History Hx of CABG Social History Household Members: Other Household Members Other:: brother Housing: House Do you presently have visiting nurse or other home services: Yes Alcohol intake: current Alcohol intake frequency: 3 or more drinks per day Alcohol type: beer Patient Tobacco Use Status: Former Tobacco user Tobacco use type: Cigarette Cigarettes Per Day: 10 Smoked in Last 30 Days: No e-Cigarette/Vaping Use: Never Used Second Hand Smoke Exposure: No Use of substances other than those prescribed or required for medical reasons: No Substance Use Type: Marijuana Advance Directives: Yes Advance Directives on File: Yes Advance Directives Date on File: 01/07/23 service: No Current occupational status: disabled Cognitive needs: No Hearing needs: No Vision needs: Yes Meds Allergies Allergy/AdvReac Type Severity Reaction Status Date / Time ARB-Angiotensin Receptor AdvReac Severe [place]ORD Verified 08/01/24 11:10 Antagonist MALVIN Inhibitors AdvReac Intermediate [place] Verified 08/01/24 11:10 Active Medications: Current Medications Acetaminophen (Acetaminophen 325 Mg Tablet) 650 mg PO Q6H PRN PRN Reason: Pain, Mild 1-3,fever,headache Baclofen (Baclofen 10 Mg Tablet) 10 mg PO QID DOMINIQUE Calcium Carbonate (Calcium Carbonate 750 Mg Tab.Chew) 750 mg PO Q4H PRN PRN Reason: Heartburn Enoxaparin Sodium (Enoxaparin Sodium 40 Mg/0.4 Ml Syringe) 40 mg SUBCUT Q24H DOMINIQUE Hydromorphone HCl (Hydromorphone Hcl 1 Mg/Ml Syringe) 0.5 mg IVPUSH Q4H PRN; Protocol PRN Reason: Pain, Severe (Pain Scale 7-10) Ketorolac Tromethamine (Ketorolac Tromethamine 15 Mg/Ml Vial) 15 mg IVPUSH Q6H PRN PRN Reason: Pain, Moderate(Pain Scale 4-6) Magnesium Hydroxide (Milk Of Magnesia 30 Ml Oral.Susp) 30 ml PO DAILY PRN PRN Reason: Constipation Melatonin (Melatonin 3 Mg Tablet) 6 mg PO BEDTIME PRN PRN Reason: Insomnia Oxycodone HCl (Oxycodone Hcl Immed Release 5 Mg Tablet) 5 mg PO Q6H DOMINIQUE Sodium Chloride (0.9 % Sodium Chloride Flush 3 Ml Syringe) 3 ml IVFLUSH QSHIFT [facility] Home Medications ?Medication ?Instructions ?Recorded ?Confirmed ?Last Taken ?Type aspirin 81 mg tablet,delayed 81 mg PO DAILY 09/10/21 07/05/24 01/19/23 History release Physical Exam Vital Signs and Narrative: Vital Signs: Last Vital Signs Temp 97.6 F 08/01/24 14:05 Pulse 90 08/01/24 18:54 Resp 18 08/01/24 18:54 BP 174/85 H 08/01/24 18:54 Pulse Ox 96 08/01/24 18:54 O2 Del Method Room Air 08/01/24 18:54 BMI result Body Mass Index 30.4 Constitutional - Awake and Alert, No apparent distress Eyes - PERRLA, EOMI Cardiovascular - S1S2, RRR, No edema Respiratory - Normal lung expansion, Normal respiratory effort, No respiratory distress, CTA bilaterally Gastrointestinal - NT / ND; +BS; No rebound or guarding Extremities - no calf tenderness bilaterally, no swelling Musculoskeletal - Normal inspection, midline and paraspinal ttp at the level of about T4-T8 Skin - Warm/Dry Neurological - Alert & oriented x3, 5/5 strength BLE, downgoing babinski, 2+ patellar reflexes. Tremulous Psychological - Appropriate affect Results Labs 08/01/24 12:10 08/01/24 12:11 Labs: Laboratory Results - last 24 hr 08/01/24 08/01/24 08/01/24 12:05 12:07 12:10 MCV 93.3 MCH 32.4 MCHC 34.7 RDW 13.9 Plt Count 158 L MPV 9.8 Immature Gran % (Auto) 0.2 Neut % (Auto) 76.2 H Lymph % (Auto) 14.1 L [place] % (Auto) 7.9 Eos % (Auto) 1.3 Baso % (Auto) 0.3 Lymph # (Auto) 0.9 L [place] # (Auto) 0.5 Eos # (Auto) 0.1 Baso # (Auto) 0.0 Abs Immat Gran (auto) 0.01 Absolute Neuts (auto) 4.7 Absolute Nucleated RBC 0.000 Nucleated RBC % (auto) 0.0 PT 11.2 INR 1.0 D-Dimer High Sensitivty 180 Anion Gap Estim Creat Clear Calc Estimated GFR Random Glucose Calcium Magnesium Total Bilirubin Direct Bilirubin AST ALT Alkaline Phosphatase B-Natriuretic Peptide 220 H Total Protein Albumin Influenza Type A (PCR) NEGATIVE Influenza Type B (PCR) NEGATIVE RSV RNA Qual (PCR) NEGATIVE SARS-CoV-2 RNA (RT-PCR) NEGATIVE 08/01/24 12:11 MCV MCH MCHC RDW Plt Count MPV Immature Gran % (Auto) Neut % (Auto) Lymph % (Auto) [place] % (Auto) Eos % (Auto) Baso % (Auto) Lymph # (Auto) [place] # (Auto) Eos # (Auto) Baso # (Auto) Abs Immat Gran (auto) Absolute Neuts (auto) Absolute Nucleated RBC Nucleated RBC % (auto) PT INR D-Dimer High Sensitivty Anion Gap 14 Estim Creat Clear Calc 80.5 Estimated GFR > 60 Random Glucose 135 H Calcium 9.8 D Magnesium 2.1 Total Bilirubin 0.8 Direct Bilirubin 0.5 AST 88 H ALT 170 H Alkaline Phosphatase 175 H B-Natriuretic Peptide Total Protein 7.9 Albumin 4.1 Influenza Type A (PCR) Influenza Type B (PCR) RSV RNA Qual (PCR) SARS-CoV-2 RNA (RT-PCR) Imaging Radiologist's Impressions: Impressions Chest X-Ray 08/01/24 11:29 IMPRESSION: 1. COPD with stable left base scarring. No active superimposed pulmonary disease. 2. Prior sternotomy and CABG. Electronically signed by: Eliu Hernandez MD 08/01/2024 11:53 AM EDT Assessment and Plan (1) Back pain: Status: Acute (2) Compression fracture of body of thoracic vertebra: Status: Acute Plan 64-year-old male with a past medical history ischemic cardiomyopathy, heart failure with reduced EF, COPD CAD s/p bypass and stenting, GERD, HLD, HTN recently treated for COPD exacerbation admitted for further management of intractable back pain due to compression fractures. Intractable back pain due to compression fractures Acute to subacute T5 compression fracture and subacute to chronic T7 compression fracture with sclerotic changes raising the possibility of underlying pathology/malignancy. There is also an acute to subacute nondisplaced T4 spinous process fracture. [facility] oxycodone 5mg q6h. Prn ketorolac and dilaudid. baclofen [facility] Outpatient follow-up for bone scan Tremors Pt reports 2/2 to pain Monitor on CIWA given history Alcohol use disorder civt, initiate phenobarbital per protocol if needed COPD No acute exacerbation Continue home inhalers, albuterol p.r.n. Ischemic cardiomyopathy/HFrEF Euvolemic on exam Continue p.o. diuretics CAD No anginal chest pain Continue BP, isosorbide, ASA, statin GERD PPI HTN Amlodipine, metoprolol DVT prophylaxis-Lovenox Full code Patient requires inpatient stay at least 2 midnights due to intractable back pain secondary to compression fractures which will require IV pain medications and PT evaluation with possible placement to STIR Quality Stroke Does the patient have a stroke diagnosis?: No VTE Prior VTE?: No VTE Risk Level:: Medical - moderate - high VTE Device Contraindication: Treatment Not Indicated VTE Drug Contraindication: N/A - Med Ordered
[2024-08-01] MEDS: oxyCODONE HCl Immed Release 5 MG TABLET PO (20:10)
[2024-08-01] MEDS: Enoxaparin Sodium 40 MG/0.4 ML SYRINGE SUBCUT (20:11)
[2024-08-01] MEDS: Baclofen 10 MG TABLET PO (20:55)
--- NOTE | 2024-08-01 20:58 | PC.NURSE ---
Pt a&ox4, no signs of distress. Pt reports 8/10 back pain Pt medicated per mar Plan of care ongoing
--- NOTE | 2024-08-01 21:00 | PC.NURSE ---
Pt requested and given food and drink. Plan of care ongoing.
--- NOTE | 2024-08-01 21:36 | PHA.MEDREC ---
Addendum entered by Fred Levy 08/01/24 21:38: reviewed Original Note: Pharmacy Consult ? Medication Reconciliation Pharmacy has completed the medication reconciliation. Spoke with patient to confirm meds. he had a list from home. He took morning medications today. He gets aspirin and melatonin OTC.
[2024-08-01] MEDS: HYDROmorphone HCl 1 MG/ML SYRINGE 0.5 MG IVPUSH (22:16)
--- NOTE | 2024-08-01 22:17 | PC.NURSE ---
Pt reporting 8/10 pain that is not relieved with all previous analgesics Pt medicated per mar.
--- NOTE | 2024-08-01 23:20 | PC.NURSE ---
This magazine writer assumed care of this Pt at 2300. Pt A&Ox3, pt sitting up in stretcher reports 8/10 right sided back pain.
[2024-08-01] MEDS: 0.9 % Sodium Chloride Flush 3 ML SYRINGE IVFLUSH (23:37)
--- NOTE | 2024-08-01 23:38 | PC.NURSE ---
Pt requested and given ice water Plan of care ongoing.
[2024-08-02] VITALS (12 sets, daily range): BP systolic 143–170; BP diastolic 80–95; PULSE 92–102; RESP 16–22; TEMP 36.6–36.8; O2SAT 93–96
[2024-08-02] MEDS: oxyCODONE HCl Immed Release 5 MG TABLET PO ×3 (01:22→14:44)
[2024-08-02] MEDS: HYDROmorphone HCl 1 MG/ML SYRINGE 0.5 MG IVPUSH ×4 (02:16→16:31)
--- NOTE | 2024-08-02 03:00 | PC.NURSE ---
Pt reports increasing pain, Pt medicated per MAR with little relief. Pt ambulated to BR independently with steady gait.
[2024-08-02] MEDS: Ketorolac Tromethamine 15 MG/ML VIAL IVPUSH ×2 (04:20→11:32)
[2024-08-02] MEDS: amLODIPine Besylate 5 MG TABLET PO (09:02)
[2024-08-02] MEDS: Isosorbide Mononitrate 30 MG TAB.ER.24H PO (09:02)
[2024-08-02] MEDS: Ezetimibe 10 MG TABLET PO (09:03)
[2024-08-02] MEDS: Baclofen 10 MG TABLET PO ×4 (09:03→21:00)
[2024-08-02] MEDS: Furosemide 20 MG TABLET PO (09:03)
[2024-08-02] MEDS: Omeprazole 20 MG CAPSULE.DR PO ×2 (09:03→18:45)
[2024-08-02] MEDS: Atorvastatin Calcium 80 MG TABLET PO (09:03)
[2024-08-02] MEDS: Acetaminophen 325 MG TABLET 650 MG PO ×2 (09:04→16:30)
[2024-08-02] MEDS: Metoprolol Succinate ER 50 MG TAB.ER.24H PO (09:04)
[2024-08-02] MEDS: Aspirin Enteric Coated 81 MG TABLET.DR PO (09:04)
--- NOTE | 2024-08-02 10:22 | MHC.CM.PN ---
PT LIVES W/BROTHER HAS OWN RIDE HOME PT IS INDEPEDEENT DC PLAN HOME N/S
[2024-08-02 10:42] LABS: Alanine Aminotransferase 125 U/L (0-40); Albumin Level 4.3 g/dL (3.5-5.0); Alkaline Phosphatase 166 U/L (39-117); Anion Gap 14 (12-20); Aspartate Amino Transferase 49 U/L (5-37); Bilirubin Total 0.9 mg/dL (0.0-1.0); Blood Urea Nitrogen 17 mg/dL (9-16); Calcium 10.3 mg/dL (8.4-10.2); Carbon Dioxide 25 mmol/L (22-29); Chloride 98 mmol/L (96-108); Creatinine Clr Calc Pharmacy 81.3; Estimated Glomerular Filt Rate > 60; Glucose Random 117 mg/dL (60-115); Lactate Dehydrogenase 174 U/L (118-273); Magnesium 2.2 mg/dL (1.6-2.6); Potassium 3.8 mmol/L (3.3-5.1); Sodium 133 mmol/L (135-145); Total Protein 8.1 g/dL (6.5-8.0)
[2024-08-02] MEDS: 0.9 % Sodium Chloride Flush 3 ML SYRINGE IVFLUSH ×2 (10:46→17:04)
--- NOTE | 2024-08-02 11:55 | PC.NURSE ---
This RN resumed care of patient at 0700, medicated with pain medication per JUL. this RN reached out to MD to request lidocaine patches for patient as they have been helpful, MD to place new order. Pt to go for a NM bone scna, this [place] base with team to assess time schedule, patient updated on POC. Pt placed in recliner to see if that was more comfortable with his back as he does not want to lay down. All needs met at this time, PO liquids and food given
--- NOTE | 2024-08-02 15:12 | PC.NURSE ---
P being brought to NM at this time via WC. Pt given pain medications prior to procedure
--- NOTE | 2024-08-02 15:27 | HO.PM.IMPN ---
Subjective Subjective Date of Service: 08/02/24 Interval History: c/o mid-back pain, worse to L of spine; no weakness/numbness of legs; no saddle anesthesia Review of Systems Review of Systems: Yes all other systems are reviewed and are negative Physical Exam Vital Signs: Vital Signs: Last Vital Signs Temp 97.8 F 08/02/24 15:20 Pulse 96 08/02/24 15:20 Resp 16 08/02/24 15:20 BP 143/81 H 08/02/24 15:20 Pulse Ox 95 08/02/24 15:20 O2 Del Method Room Air 08/02/24 15:20 BMI result Body Mass Index 30.4 Gen: in no acute distress HEENT: sclera anicteric, moist mucus membranes Neck: supple Lungs: clear to auscultation bilaterally Heart: regular rate and rhythm, no murmurs Abd: soft, non-tender, non-distended Back: tender mid-T spine and left paraspinal musculature Ext: no edema Skin: warm/well-perfused Neuro: alert and oriented x3, no focal findings Psych: appropriate affect Objective Data Active Medications Acetaminophen (Acetaminophen 325 Mg Tablet) 650 mg PO Q6H PRN PRN Reason: Pain, Mild 1-3,fever,headache Last Admin: 08/02/24 09:04 Dose: 650 mg Documented By: NORI Albuterol Sulfate (Albuterol Sulfate 90 Mcg 8 Gm Inhaler) 2 puff INHALE Q6H PRN PRN Reason: shortness of breath or wheezing Amlodipine Besylate (Amlodipine Besylate 5 Mg Tablet) 5 mg PO DAILY [facility]; Protocol Last Admin: 08/02/24 09:02 Dose: 5 mg Documented By: NORI Aspirin (Aspirin Enteric Coated 81 Mg Tablet.) 81 mg PO DAILY [facility] Last Admin: 08/02/24 09:04 Dose: 81 mg Documented By: NORI Atorvastatin Calcium (Atorvastatin Calcium 80 Mg Tablet) 80 mg PO DAILY [facility] Last Admin: 08/02/24 09:03 Dose: 80 mg Documented By: NORI Baclofen (Baclofen 10 Mg Tablet) 10 mg PO QID [facility] Last Admin: 08/02/24 09:03 Dose: 10 mg Documented By: NORI Calcium Carbonate (Calcium Carbonate 750 Mg Tab.Chew) 750 mg PO Q4H PRN PRN Reason: Heartburn Cyclobenzaprine HCl (Cyclobenzaprine Hcl 10 Mg Tablet) 10 mg PO BID PRN PRN Reason: for muscle spasm Ezetimibe (Ezetimibe 10 Mg Tablet) 10 mg PO DAILY [facility] Last Admin: 08/02/24 09:03 Dose: 10 mg Documented By: NORI Enoxaparin Sodium (Enoxaparin Sodium 40 Mg/0.4 Ml Syringe) 40 mg SUBCUT Q24H [facility] Last Admin: 08/01/24 20:11 Dose: 40 mg Documented By: JEANNIE Fluticasone/Vilanterol (Fluticasone/Vilanterol 100/25 Blst.W.Dev) 1 puff INHALE RDAILY [facility] Last Admin: 08/02/24 11:52 Dose: Not Given Documented By: JULIET Non-Admin Reason: See Note Furosemide (Furosemide 20 Mg Tablet) 20 mg PO DAILY [facility]; Protocol Last Admin: 08/02/24 09:03 Dose: 20 mg Documented By: NORI Hydromorphone HCl (Hydromorphone Hcl 1 Mg/Ml Syringe) 0.5 mg IVPUSH Q4H PRN; Protocol PRN Reason: Pain, Severe (Pain Scale 7-10) Last Admin: 08/02/24 11:33 Dose: 0.5 mg Documented By: NORI Isosorbide Mononitrate (Isosorbide Mononitrate 30 Mg Tab.Er.24h) 30 mg PO DAILY [facility]; Protocol Last Admin: 08/02/24 09:02 Dose: 30 mg Documented By: NORI Ketorolac Tromethamine (Ketorolac Tromethamine 15 Mg/Ml Vial) 15 mg IVPUSH Q6H PRN PRN Reason: Pain, Moderate(Pain Scale 4-6) Last Admin: 08/02/24 11:32 Dose: 15 mg Documented By: NORI Magnesium Hydroxide (Milk Of Magnesia 30 Ml Oral.Susp) 30 ml PO DAILY PRN PRN Reason: Constipation Melatonin (Melatonin 3 Mg Tablet) 6 mg PO BEDTIME PRN PRN Reason: Insomnia Metoprolol Succinate (Metoprolol Succinate Er 50 Mg Tab.Er.24h) 50 mg PO DAILY [facility]; Protocol Last Admin: 08/02/24 09:04 Dose: 50 mg Documented By: NORI Omeprazole (Omeprazole 20 Mg Deniz.) 20 mg PO BID@0630,1630 [facility] Last Admin: 08/02/24 09:03 Dose: 20 mg Documented By: NORI Oxycodone HCl (Oxycodone Hcl Immed Release 5 Mg Tablet) 5 mg PO Q6H [facility] Last Admin: 08/02/24 14:44 Dose: 5 mg Documented By: NEWRPGOYO Sodium Chloride (0.9 % Sodium Chloride Flush 3 Ml Syringe) 3 ml IVFLUSH QSHIFT [facility] Last Admin: 08/02/24 10:46 Dose: 3 ml Documented By: NORI Labs 08/01/24 12:10 08/02/24 10:11 Labs: Laboratory Results - last 24 hr 08/02/24 10:11 Anion Gap 14 Estim Creat Clear Calc 81.3 Estimated GFR > 60 Random Glucose 117 H Calcium 10.3 H Magnesium 2.2 Total Bilirubin 0.9 AST 49 H ALT 125 H Alkaline Phosphatase 166 H Lactate Dehydrogenase 174 Total Protein 8.1 H Albumin 4.3 Assessment and Plan (1) Compression fracture of body of thoracic vertebra: Status: Acute Plan d2 for 64yo M with ischemic CM, HFrEF, COPD, CAD s/p CABG + PCI, GERD, HTN, HLD, HTN admitted for intractable back pain due to acute/subacute T-spine fractures intractable back pain due to compression fractures - CTA chest showed acute to subacute T5 compression fracture and subacute to chronic T7 compression fracture with sclerotic changes raising the possibility of underlying pathology/malignancy. There is also an acute to subacute nondisplaced T4 spinous process fracture. Will obtain bone scan. Send RADHA + sFLCR - oxycodone PO, prn IV ketorolac and hydromorphone; scheduled baclofen + prn cyclobenzaprine AUD - prn CIWA, monitor for withdrawal symptoms ischemic CM chronic HFrEF - continue Imdur, metoprolol succinate, PO furosemide CAD - continue atorvastatin, metoprolol succinate, ASA, ezetimibe HTN - continue amloidpine, metoprolol succinate, frosemide COPD without acute exac - Breo, prn albuterol GERD - PPI VTE ppx - enoxaparin dispo - plan home with PT eventually In my clinical judgment, the patient requires continued inpatient hospitalization for the following reasons: pain control, malignancy workup Total time managing care of this patient today: 35 minutes. Quality Stroke Does the patient have a stroke diagnosis?: No VTE Prior VTE?: No VTE Risk Level:: Medical - moderate - high VTE Device Contraindication: Treatment Not Indicated VTE Drug Contraindication: N/A - Med Ordered
--- NOTE | 2024-08-02 17:05 | PC.NURSE ---
This RN reached out to provider to discuss this pt uncontrolled pain, this RN has been utilizing all PRN/scheduled pain medications with little effect, pt given heat packs, repositioned in chair from bed with very minimal relief. Awaiting to hear back from Dr. Wise at this time
[2024-08-02] MEDS: Lidocaine 4 % Patch ADH..PATCH 2 PATCH TRANSDERMA (18:44)
[2024-08-02] MEDS: oxyCODONE HCl Immed Release 5 MG TABLET 10 MG PO (18:45)
[2024-08-02] MEDS: Enoxaparin Sodium 40 MG/0.4 ML SYRINGE SUBCUT (21:00)
[2024-08-02] MEDS: HYDROmorphone HCl 1 MG/ML SYRINGE IVPUSH (21:00)
--- NOTE | 2024-08-02 23:55 | MHC.EDTECH ---
This tech took over care of pt at 2300,rounded and introduced self to pt, patient ambulated to the bathroom with a slow/steady gait.patient is having pain,RN aware, pt was given a urinal, call randhawa in reach
[2024-08-03] MEDS: Cyclobenzaprine HCl 10 MG TABLET PO ×2 (00:01→22:26)
[2024-08-03] MEDS: oxyCODONE HCl Immed Release 5 MG TABLET 10 MG PO ×4 (00:54→19:59)
[2024-08-03] MEDS: HYDROmorphone HCl 1 MG/ML SYRINGE IVPUSH ×5 (03:39→23:01)
[2024-08-03] MEDS: Omeprazole 20 MG CAPSULE.DR PO ×2 (06:06→14:53)
[2024-08-03] MEDS: Isosorbide Mononitrate 30 MG TAB.ER.24H PO (08:19)
[2024-08-03] MEDS: Atorvastatin Calcium 80 MG TABLET PO (08:19)
[2024-08-03] MEDS: Metoprolol Succinate ER 50 MG TAB.ER.24H PO (08:19)
[2024-08-03] MEDS: Furosemide 20 MG TABLET PO (08:19)
[2024-08-03] MEDS: Aspirin Enteric Coated 81 MG TABLET.DR PO (08:19)
[2024-08-03] MEDS: amLODIPine Besylate 5 MG TABLET PO (08:19)
[2024-08-03] MEDS: Baclofen 10 MG TABLET PO ×4 (08:20→20:00)
[2024-08-03 08:21] VITALS: BP 133/71; PULSE 95; RESP 18; TEMP 36.8; O2SAT 94
[2024-08-03] MEDS: 0.9 % Sodium Chloride Flush 3 ML SYRINGE IVFLUSH ×4 (08:23→19:03)
[2024-08-03] MEDS: Lidocaine 4 % Patch ADH..PATCH 2 PATCH TRANSDERMA (08:24)
[2024-08-03] MEDS: Ezetimibe 10 MG TABLET PO (09:20)
--- NOTE | 2024-08-03 09:52 | HO.PM.IMPN ---
Subjective Subjective Date of Service: 08/03/24 Interval History: c/o sev mid-back pain requiring IV Dilaudid Review of Systems Review of Systems: Yes all other systems are reviewed and are negative Physical Exam Vital Signs: Vital Signs: Last Vital Signs Temp 98.2 F 08/03/24 08:21 Pulse 95 08/03/24 08:21 Resp 18 08/03/24 08:21 BP 133/71 08/03/24 08:21 Pulse Ox 94 08/03/24 08:21 O2 Del Method Room Air 08/03/24 08:21 BMI result Body Mass Index 30.4 Gen: in no acute distress HEENT: sclera anicteric, moist mucus membranes Neck: supple Lungs: clear to auscultation bilaterally Heart: regular rate and rhythm, no murmurs Abd: soft, non-tender, non-distended Back: tender mid-T spine and left paraspinal musculature Ext: no edema Skin: warm/well-perfused Neuro: alert and oriented x3, no focal findings Psych: appropriate affect Objective Data Active Medications Acetaminophen (Acetaminophen 325 Mg Tablet) 650 mg PO Q6H PRN PRN Reason: Pain, Mild 1-3,fever,headache Last Admin: 08/02/24 16:30 Dose: 650 mg Documented By: NORI Albuterol Sulfate (Albuterol Sulfate 90 Mcg 8 Gm Inhaler) 2 puff INHALE Q6H PRN PRN Reason: shortness of breath or wheezing Amlodipine Besylate (Amlodipine Besylate 5 Mg Tablet) 5 mg PO DAILY [facility]; Protocol Last Admin: 08/03/24 08:19 Dose: 5 mg Documented By: GEORGIE Aspirin (Aspirin Enteric Coated 81 Mg Tablet.Dr) 81 mg PO DAILY [facility] Last Admin: 08/03/24 08:19 Dose: 81 mg Documented By: GEORGIE Atorvastatin Calcium (Atorvastatin Calcium 80 Mg Tablet) 80 mg PO DAILY [facility] Last Admin: 08/03/24 08:19 Dose: 80 mg Documented By: GEORGIE Baclofen (Baclofen 10 Mg Tablet) 10 mg PO QID [facility] Last Admin: 08/03/24 08:20 Dose: 10 mg Documented By: GEORGIE Calcium Carbonate (Calcium Carbonate 750 Mg Tab.Chew) 750 mg PO Q4H PRN PRN Reason: Heartburn Cyclobenzaprine HCl (Cyclobenzaprine Hcl 10 Mg Tablet) 10 mg PO BEDTIME PRN PRN Reason: for muscle spasm Last Admin: 08/03/24 00:01 Dose: 10 mg Documented By: JENNIFER Ezetimibe (Ezetimibe 10 Mg Tablet) 10 mg PO DAILY [facility] Last Admin: 08/03/24 09:20 Dose: 10 mg Documented By: GEORGIE Enoxaparin Sodium (Enoxaparin Sodium 40 Mg/0.4 Ml Syringe) 40 mg SUBCUT Q24H [facility] Last Admin: 08/02/24 21:00 Dose: 40 mg Documented By: JENNIFER Fluticasone/Vilanterol (Fluticasone/Vilanterol 100/ Blst.W.Dev) 1 puff INHALE RDAILY [facility] Last Admin: 08/02/24 11:52 Dose: Not Given Documented By: JULIET Non-Admin Reason: See Note Furosemide (Furosemide 20 Mg Tablet) 20 mg PO DAILY [facility]; Protocol Last Admin: 08/03/24 08:19 Dose: 20 mg Documented By: GEORGIE Hydromorphone HCl (Hydromorphone Hcl 1 Mg/Ml Syringe) 1 mg IVPUSH Q4H PRN; Protocol PRN Reason: Pain, Severe (Pain Scale 7-10) Last Admin: 08/03/24 03:39 Dose: 1 mg Documented By: JENNIFER Isosorbide Mononitrate (Isosorbide Mononitrate 30 Mg Tab.Er.24h) 30 mg PO DAILY [facility]; Protocol Last Admin: 08/03/24 08:19 Dose: 30 mg Documented By: GEORGIE Ketorolac Tromethamine (Ketorolac Tromethamine 15 Mg/Ml Vial) 15 mg IVPUSH Q6H PRN PRN Reason: Pain, Moderate(Pain Scale 4-6) Last Admin: 08/03/24 00:00 Dose: 15 mg Documented By: JENNIFER Lidocaine (Lidocaine 4 % Patch Adh..Patch) 2 patch TRANSDERMA DAILY [facility]; Protocol Last Admin: 08/03/24 08:24 Dose: 2 patch Documented By: GEORGIE Magnesium Hydroxide (Milk Of Magnesia 30 Ml Oral.Susp) 30 ml PO DAILY PRN PRN Reason: Constipation Melatonin (Melatonin 3 Mg Tablet) 6 mg PO BEDTIME PRN PRN Reason: Insomnia Metoprolol Succinate (Metoprolol Succinate Er 50 Mg Tab.Er.24h) 50 mg PO DAILY [facility]; Protocol Last Admin: 08/03/24 08:19 Dose: 50 mg Documented By: GEORGIE Omeprazole (Omeprazole 20 Mg Capsule.Dr) 20 mg PO BID@0630,1630 [facility] Last Admin: 08/03/24 06:06 Dose: 20 mg Documented By: JENNIFER Oxycodone HCl (Oxycodone Hcl Immed Release 5 Mg Tablet) 10 mg PO Q6H [facility] Sodium Chloride (0.9 % Sodium Chloride Flush 3 Ml Syringe) 3 ml IVFLUSH QSHIFT [facility] Last Admin: 08/03/24 08:23 Dose: 3 ml Documented By: GEORGIE Labs 08/01/24 12:10 08/03/24 10:15 Labs: Laboratory Results - last 24 hr 08/02/24 10:11 Anion Gap 14 Estim Creat Clear Calc 81.3 Estimated GFR > 60 Random Glucose 117 H Calcium 10.3 H Magnesium 2.2 Total Bilirubin 0.9 AST 49 H ALT 125 H Alkaline Phosphatase 166 H Lactate Dehydrogenase 174 Total Protein 8.1 H Albumin 4.3 Impressions Bone Scan Nuclear Medicine 08/02/24 11:00 IMPRESSION: 1. Intense uptake involving T5 and T7, confirming acute/subacute nature of fractures. In review of the recent CT PA examination of the chest, both fractures appear acute/subacute, and there is diffuse sclerosis throughout the T5 vertebral body highly suspicious for pathological fracture. 2. There are no additional pathological regions of skeletal uptake identified. Electronically signed by: Eliu Hernandez MD 08/02/2024 04:42 PM EDT RP Assessment and Plan (1) Compression fracture of body of thoracic vertebra: Status: Acute Plan d3 for 64yo M with ischemic CM, HFrEF, COPD, CAD s/p CABG + PCI, GERD, HTN, HLD, HTN admitted for intractable back pain due to acute/subacute T-spine fractures intractable back pain due to compression fractures - CTA chest showed acute to subacute T5 compression fracture and subacute to chronic T7 compression fracture with sclerotic changes raising the possibility of underlying pathology/malignancy. There is also an acute to subacute nondisplaced T4 spinous process fracture. - Bone scan showed intense uptake involving T5 and T7, confirming acute/subacute nature of fractures. In review of the recent CT PA examination of the chest, both fractures appear acute/subacute, and there is diffuse sclerosis throughout the T5 vertebral body highly suspicious for pathological fracture. - RADHA + sFLCR pending; also check PSA + CT A/P - Onc consult - consider CT-guided biopsy of T5 lesion - scheduled oxycodone PO, prn IV ketorolac and hydromorphone; scheduled baclofen + prn cyclobenzaprine + lidocaine patch AUD - prn CIWA, monitor for withdrawal symptoms ischemic CM chronic HFrEF - continue Imdur, metoprolol succinate, PO furosemide CAD - continue atorvastatin, metoprolol succinate, ASA, ezetimibe HTN - continue amloidpine, metoprolol succinate, frosemide COPD without acute exac - Breo, prn albuterol GERD - PPI VTE ppx - hold enoxaparin for possible biopsy dispo - plan home with PT eventually In my clinical judgment, the patient requires continued inpatient hospitalization for the following reasons: pain control, malignancy workup Total time managing care of this patient today: 35 minutes. Quality Stroke Does the patient have a stroke diagnosis?: No VTE Prior VTE?: No VTE Risk Level:: Medical - moderate - high VTE Device Contraindication: Treatment Not Indicated VTE Drug Contraindication: N/A - Med Ordered
[2024-08-03] MEDS: iohexoL 350 MG/ML 100 ML INFUS..BTL IV (10:03)
[2024-08-03 10:21] VITALS: BMI 27.9
[2024-08-03 10:22] VITALS: BP 132/88; PULSE 95; RESP 16; TEMP 36.5; O2SAT 95
[2024-08-03 10:54] LABS: Alanine Aminotransferase 81 U/L (0-40); Alkaline Phosphatase 171 U/L (39-117); Anion Gap 12 (12-20); Aspartate Amino Transferase 41 U/L (5-37); Bilirubin Total 1.3 mg/dL (0.0-1.0); Blood Urea Nitrogen 17 mg/dL (9-16); Calcium 9.6 mg/dL (8.4-10.2); Carbon Dioxide 26 mmol/L (22-29); Chloride 100 mmol/L (96-108); Creatinine Clr Calc Pharmacy 84.1; Estimated Glomerular Filt Rate > 60; Glucose Random 115 mg/dL (60-115); Potassium 3.9 mmol/L (3.3-5.1); Sodium 134 mmol/L (135-145); Total Protein 7.3 g/dL (6.5-8.0)
[2024-08-03 11:09] LABS: Prostate Specific Antigen 0.21 ng/mL (<0.05-4.0)
--- NOTE | 2024-08-03 11:49 | PM.HEMONCCN ---
Subjective - Subjective Chief complaint: Back pain Patient: new to practice Consult date: 08/03/24 Primary Care Provider: Boy Jorge MD Personnel Counselor Utilized?: No - Czech Speaking HPI - Consult Narrative Reason for consult: ? Metastatic malignancy Narrative: Johnny Pittman is a 64 year old male with a past medical history ischemic cardiomyopathy, heart failure with reduced EF, COPD CAD s/p bypass and stenting, GERD, HLD, HTN recently treated for COPD exacerbation by PCP presented to the ED on 08/01/2024 for evaluation of sob and severe back pain ongoing x 4 days. He states when he takes a deep breath or coughs pain significantly worsens. However, significant pain/discomfort at rest, rates 10/10. It is constant and worsens with any movement, breathing, palpation. Localizes to the mid back midline and bilateral. No radiation of the pain. No paresthesias, weakness, saddle anesthesia, bowel/bladder dysfunction. He denies any known injury. Reports he feels short of breath as he is unable to take a deep breath without significant pain. Reports cough has baseline, no expectoration. No fevers, chills, sore throat, congestion, sick contacts, palpitations, or chest pain. CTA of the chest negative for any aortic dissection or aneurysm. No PE identified. There was left lower lobe pleural parenchymal scarring but no pneumonia or effusion. There was an acute to subacute T5 compression fracture and subacute to chronic T7 compression fracture with sclerotic changes raising the possibility of underlying pathology/malignancy. There is also an acute to subacute nondisplaced T4 spinous process fracture. In the ED, he has received multiple doses of IV morphine, hydromorphone, cyclobenzaprine with limited improvement. Review of Systems - Constitutional Reports as per [facility] Medical History: Medical History (Last Reviewed 08/01/24 @ 20:04 by TAZ Hawkins) Adult general medical exam Colon cancer screening Colonoscopy refused COPD (chronic obstructive pulmonary disease) Coronary artery disease GERD (gastroesophageal reflux disease) Heart failure with reduced ejection fraction Hypercholesterolemia Hypertension Insomnia Ischemic cardiomyopathy Obesity (BMI 30-39.9) Screening for prostate cancer Tobacco abuse Umbilical hernia Family History: Family History (Last Reviewed 08/01/24 @ 20:04 by TAZ Hawkins) Father No problems noted. Mother No problems noted. Sister No problems noted. Sister No problems noted. Brother No problems noted. Brother Myocardial infarct Liver cancer Surgical History: Surgical History (Last Reviewed 08/01/24 @ 20:04 by TAZ Hawkins) Hx of CABG Social History: Social History (Last Reviewed 08/01/24 @ 20:04 by TAZ Hawkins) Living Situation History: Household Members: Family Household Members Other:: brother Housing: House Do you presently have visiting nurse or other home services: No Tobacco History: Patient Tobacco Use Status: Former Tobacco user Tobacco use type: Cigarette e-Cigarette/Vaping Use: Never Used Second Hand Smoke Exposure: No Substance Use History: Substance Use Type: Marijuana Advance Directives: Advance Directives Date on File: 01/07/23 Occupation Assessmet: service: No Current occupational status: disabled Home Medications and Allergies Current Medications: Current Medications Acetaminophen (Acetaminophen 325 Mg Tablet) 650 mg PO Q6H PRN PRN Reason: Pain, Mild 1-3,fever,headache Last Admin: 08/02/24 16:30 Dose: 650 mg Albuterol Sulfate (Albuterol Sulfate 90 Mcg 8 Gm Inhaler) 2 puff INHALE Q6H PRN PRN Reason: shortness of breath or wheezing Amlodipine Besylate (Amlodipine Besylate 5 Mg Tablet) 5 mg PO DAILY [facility]; Protocol Last Admin: 08/03/24 08:19 Dose: 5 mg Aspirin (Aspirin Enteric Coated 81 Mg Tablet.Dr) 81 mg PO DAILY [facility] Last Admin: 08/03/24 08:19 Dose: 81 mg Atorvastatin Calcium (Atorvastatin Calcium 80 Mg Tablet) 80 mg PO DAILY [facility] Last Admin: 08/03/24 08:19 Dose: 80 mg Baclofen (Baclofen 10 Mg Tablet) 10 mg PO QID [facility] Last Admin: 08/03/24 08:20 Dose: 10 mg Calcium Carbonate (Calcium Carbonate 750 Mg Tab.Chew) 750 mg PO Q4H PRN PRN Reason: Heartburn Cyclobenzaprine HCl (Cyclobenzaprine Hcl 10 Mg Tablet) 10 mg PO BEDTIME PRN PRN Reason: for muscle spasm Last Admin: 08/03/24 00:01 Dose: 10 mg Ezetimibe (Ezetimibe 10 Mg Tablet) 10 mg PO DAILY [facility] Last Admin: 08/03/24 09:20 Dose: 10 mg Enoxaparin Sodium (Enoxaparin Sodium 40 Mg/0.4 Ml Syringe) 40 mg SUBCUT Q24H [facility] Last Admin: 08/02/24 21:00 Dose: 40 mg Fluticasone/Vilanterol (Fluticasone/Vilanterol 100/25 Blst.W.Dev) 1 puff INHALE RDAILY [facility] Last Admin: 08/03/24 11:27 Dose: Not Given Furosemide (Furosemide 20 Mg Tablet) 20 mg PO DAILY [facility]; Protocol Last Admin: 08/03/24 08:19 Dose: 20 mg Hydromorphone HCl (Hydromorphone Hcl 1 Mg/Ml Syringe) 1 mg IVPUSH Q4H PRN; Protocol PRN Reason: Pain, Severe (Pain Scale 7-10) Last Admin: 08/03/24 10:43 Dose: 1 mg Isosorbide Mononitrate (Isosorbide Mononitrate 30 Mg Tab.Er.24h) 30 mg PO DAILY [facility]; Protocol Last Admin: 08/03/24 08:19 Dose: 30 mg Ketorolac Tromethamine (Ketorolac Tromethamine 15 Mg/Ml Vial) 15 mg IVPUSH Q6H PRN PRN Reason: Pain, Moderate(Pain Scale 4-6) Last Admin: 08/03/24 00:00 Dose: 15 mg Lidocaine (Lidocaine 4 % Patch Adh..Patch) 2 patch TRANSDERMA DAILY [facility]; Protocol Last Admin: 08/03/24 08:24 Dose: 2 patch Magnesium Hydroxide (Milk Of Magnesia 30 Ml Oral.Susp) 30 ml PO DAILY PRN PRN Reason: Constipation Melatonin (Melatonin 3 Mg Tablet) 6 mg PO BEDTIME PRN PRN Reason: Insomnia Metoprolol Succinate (Metoprolol Succinate Er 50 Mg Tab.Er.24h) 50 mg PO DAILY [facility]; Protocol Last Admin: 08/03/24 08:19 Dose: 50 mg Omeprazole (Omeprazole 20 Mg Capsule.Dr) 20 mg PO BID@0630,1630 [facility] Last Admin: 08/03/24 06:06 Dose: 20 mg Oxycodone HCl (Oxycodone Hcl Immed Release 5 Mg Tablet) 10 mg PO Q6H [facility] Sodium Chloride (0.9 % Sodium Chloride Flush 3 Ml Syringe) 3 ml IVFLUSH QSHIFT [facility] Last Admin: 08/03/24 08:23 Dose: 3 ml Home Medications ?Medication ?Instructions ?Recorded ?Confirmed ?Type aspirin 81 mg tablet,delayed 81 mg PO DAILY 05/03/22 03/24/25 History release melatonin 10 mg tablet 10 mg PO BEDTIME 08/01/24 08/01/24 History Allergies Allergy/AdvReac Type Severity Reaction Status Date / Time ARB-Angiotensin Receptor AdvReac Severe [place] Verified 08/01/24 11:10 Antagonist MALVIN Inhibitors AdvReac Intermediate [place] Verified 08/01/24 11:10 Physical Exam Vital signs: Vital Signs Temp 97.7 F 08/03/24 10:22 Pulse 95 08/03/24 10:22 Resp 16 08/03/24 10:22 BP 132/88 08/03/24 10:22 Pulse Ox 95 08/03/24 10:22 O2 Del Method Room Air 08/03/24 10:22 Intake & Output 08/02/24 08/03/24 08/03/24 18:59 06:59 18:59 Other: Last Bowel Movement 07/31/24 Weight 83.3 kg Weight in Grams [id number] Weight 83.3 kg - Constitutional Present: no acute distress, average body habitus - Routine HEENT Exam Head: Present: normal inspection Eye: Present: PERRL - Routine Neck Exam Present: supple. Absent: lymphadenopathy - Routine Respiratory Exam Present: CTAB. Absent: stridor, wheezes - Routine Cardiovascular Exam Cardiovascular: Present: RRR, S1, S2 - Routine Abdominal Exam Absent: mass - Routine Extremities Exam Present: pulses intact. Absent: pedal edema - Routine Skin Exam Present: intact - Routine Neurological Exam Present: alert, oriented X3 Hem/Onc Consult Result - Labs CBC & Chem 7: 08/01/24 12:10 08/03/24 10:15 Labs: BMP 08/03/24 10:15 Sodium 134 L Potassium 3.9 Chloride 100 Carbon Dioxide 26 BUN 17 H Creatinine 0.92 Calcium 9.6 D Liver Function 08/03/24 Range/Units 10:15 Total Bilirubin 1.3 H (0.0-1.0) mg/dL AST 41 H (5-37) U/L ALT 81 H (0-40) U/L Alkaline Phosphatase 171 H (39-117) U/L Albumin 4.0 (3.5-5.0) g/dL Assessment and Plan Patient Active problem list reviewed?: Yes (1) Pathological fracture Status: Acute Assessment and plan: 1. This is a 64-year-old male with multiple medical problems as stated above presenting with acute/subacute fracture of T5 and T7 vertebral bodies with diffuse sclerosis throughout T5 vertebral body suspicious for pathological fracture. Bone scan performed 08/02/2024 shows intense uptake involving T5 and T7 but no other additional pathological uptake. He does not have anemia, renal dysfunction, mild hypercalcemia. Total protein and albumin levels are normal. Serum immunofixation is pending for diagnosis of multiple myeloma/plasma cell dyscrasia. CT chest/abdomen and pelvis with contrast shows left lower lobe pleural/parenchymal scarring. Hepatic steatosis, 2.3 cm left hepatic lesion suggestive of hemangioma. Mild dilatation of the distal common bile duct in the pancreatic head of uncertain significance, if there is clinical concern MRI could be performed. Area of wall thickening versus underdistention involving ascending colon. At this time there is no convincing evidence of malignancy although as stated above, further evaluation of pancreas and ascending colon could be performed as outpatient. Biopsy of T5 vertebral body may have to be performed for pathological diagnosis. Await results of serum immunofixation and free kappa/lambda ratio assay. I thank you for this consultation, will follow with you. - Time Spent With Patient Time Spent with Patient (in minutes): 30 Additional Coding: - Additional E/M codes Complex E/M visit Add On: CPT G2211
[2024-08-03] MEDS: Ketorolac Tromethamine 15 MG/ML VIAL IVPUSH ×3 (12:13→18:22)
--- NOTE | 2024-08-03 13:58 | MHC.CM.PN ---
EMR REVIEWED AND PER MD ROUNDS, PT IS NOT MEDICALLY CLEARED FOR DC HOME (PAIN, W/U FOR MALIGNANCY) PT MAY NEED HOME SERVICES ON DC, NO PREFERENCE TO [facility]. REFERRAL TO [facility], AWAITING RESPONSE. CM WILL CONTINUE TO FOLLOW FOR ANY CHANGE TO DC PLAN/NEEDS.
[2024-08-03 15:15] VITALS: BP 109/70; PULSE 87; RESP 18; TEMP 36; O2SAT 94
[2024-08-03 17:41] LABS: Lactate Dehydrogenase 149 U/L (118-273)
[2024-08-03 17:49] LABS: IgA 454 mg/dL (70-320); IgG 1292 mg/dL (600-1540); IgM 190 mg/dL (50-300)
[2024-08-03] MEDS: gadobutroL 10 ML VIAL 9 ML IVPUSH (17:49)
[2024-08-03 19:15] VITALS: BP 143/83; PULSE 107; RESP 18; TEMP 36.6; O2SAT 93
[2024-08-03] MEDS: Acetaminophen 325 MG TABLET 650 MG PO (22:26)
[2024-08-03] MEDS: Melatonin 3 MG TABLET 6 MG PO (23:03)
[2024-08-04] MEDS: oxyCODONE HCl Immed Release 5 MG TABLET 10 MG PO ×4 (02:18→16:49)
[2024-08-04] MEDS: HYDROmorphone HCl 1 MG/ML SYRINGE IVPUSH ×3 (03:12→23:48)
[2024-08-04 03:38] VITALS: BP 141/77; PULSE 93; RESP 20; TEMP 36.5; O2SAT 95
[2024-08-04] MEDS: Omeprazole 20 MG CAPSULE.DR PO ×2 (06:25→15:26)
--- NOTE | 2024-08-04 06:41 | PM.EVENT ---
Event Note Date of Service: 08/04/24 Event Note: Urinary retention: Patient has been having difficulty urinating. On bladder scan patient retaining up to 544 cc. Patient tried multiple times to urinate but unsuccessful. Still complains of mid back pain attributed to his thoracic compression fractures. Urine retention could be confounded by opiate medications. Will also obtain MRI of the lumbar and thoracic spine. Will pass on to the day hospitalist for follow-up results. Time Spent With Patient Time: Total time managing care of this patient today ____ minutes.
--- NOTE | 2024-08-04 06:57 | PC.NURSE ---
pt unable to void overnight, bladder scanned pt for 555 ml at 0625, tiger text to Dr. Rendon, straight cath ordered and placed at 0640. day nurse will remove and record output.
[2024-08-04 07:16] VITALS: BP 166/78; PULSE 88; RESP 18; TEMP 36.1; O2SAT 93
--- NOTE | 2024-08-04 07:18 | PC.NURSE ---
Pt bladder scanned for 650mls at 630am , pt straight cath at 7am for 700mls of clear yellow urine. Pt DTV#1 at 1300
[2024-08-04] MEDS: 0.9 % Sodium Chloride Flush 3 ML SYRINGE IVFLUSH ×3 (07:23→22:02)
[2024-08-04] MEDS: Isosorbide Mononitrate 30 MG TAB.ER.24H PO (07:24)
[2024-08-04] MEDS: Baclofen 10 MG TABLET PO ×4 (07:24→20:29)
[2024-08-04] MEDS: Metoprolol Succinate ER 50 MG TAB.ER.24H PO (07:24)
[2024-08-04] MEDS: Acetaminophen 325 MG TABLET 650 MG PO ×2 (07:25→20:30)
[2024-08-04] MEDS: Atorvastatin Calcium 80 MG TABLET PO (07:25)
[2024-08-04] MEDS: Furosemide 20 MG TABLET PO (07:25)
[2024-08-04] MEDS: Ezetimibe 10 MG TABLET PO (07:25)
[2024-08-04] MEDS: amLODIPine Besylate 5 MG TABLET PO (07:25)
[2024-08-04] MEDS: Aspirin Enteric Coated 81 MG TABLET.DR PO (07:25)
[2024-08-04] MEDS: Ketorolac Tromethamine 15 MG/ML VIAL IVPUSH (07:27)
[2024-08-04] MEDS: Fluticasone/Vilanterol 100/25 BLST.W.DEV 1 PUFF INHALE (08:27)
[2024-08-04 08:30] VITALS: PULSE 88; RESP 18
--- NOTE | 2024-08-04 09:25 | P.PNIM_ITS ---
Subjective Subjective Date of Service: 08/04/24 Interval History: retaining urine overnight, straight cathed no abd pain ongoing back pain Review of Systems Review of Systems: Yes all other systems are reviewed and are negative Physical Exam 2 Vital Signs: Vital Signs: Last Vital Signs Temp 96.9 F 08/04/24 07:16 Pulse 88 08/04/24 08:30 Resp 18 08/04/24 08:30 BP 166/78 H 08/04/24 07:16 Pulse Ox 93 08/04/24 07:16 O2 Del Method Room Air 08/04/24 07:16 BMI result Body Mass Index 27.9 Gen: in no acute distress HEENT: sclera anicteric, moist mucus membranes Neck: supple Lungs: clear to auscultation bilaterally Heart: regular rate and rhythm, no murmurs Abd: soft, non-tender, non-distended, no Claros sign Back: tender mid-T spine and left paraspinal musculature Ext: no edema Skin: warm/well-perfused Neuro: alert and oriented x3, no focal findings Psych: appropriate affect Objective Data Active Medications Acetaminophen (Acetaminophen 325 Mg Tablet) 650 mg PO Q6H PRN PRN Reason: Pain, Mild 1-3,fever,headache Last Admin: 08/04/24 07:25 Dose: 650 mg Documented By: MARICEL Albuterol Sulfate (Albuterol Sulfate 90 Mcg 8 Gm Inhaler) 2 puff INHALE Q6H PRN PRN Reason: shortness of breath or wheezing Amlodipine Besylate (Amlodipine Besylate 5 Mg Tablet) 5 mg PO DAILY [facility]; Protocol Last Admin: 08/04/24 07:25 Dose: 5 mg Documented By: MARICEL Aspirin (Aspirin Enteric Coated 81 Mg Tablet.) 81 mg PO DAILY [facility] Last Admin: 08/04/24 07:25 Dose: 81 mg Documented By: MARICEL Atorvastatin Calcium (Atorvastatin Calcium 80 Mg Tablet) 80 mg PO DAILY [facility] Last Admin: 08/04/24 07:25 Dose: 80 mg Documented By: MARICEL Baclofen (Baclofen 10 Mg Tablet) 10 mg PO QID [facility] Last Admin: 08/04/24 07:24 Dose: 10 mg Documented By: MARICEL Calcium Carbonate (Calcium Carbonate 750 Mg Tab.Chew) 750 mg PO Q4H PRN PRN Reason: Heartburn Cyclobenzaprine HCl (Cyclobenzaprine Hcl 10 Mg Tablet) 10 mg PO BEDTIME PRN PRN Reason: for muscle spasm Last Admin: 08/03/24 22:26 Dose: 10 mg Documented By: ROVERTO Ezetimibe (Ezetimibe 10 Mg Tablet) 10 mg PO DAILY [facility] Last Admin: 08/04/24 07:25 Dose: 10 mg Documented By: MARICEL Enoxaparin Sodium (Enoxaparin Sodium 40 Mg/0.4 Ml Syringe) 40 mg SUBCUT Q24H [facility] Last Admin: 08/02/24 21:00 Dose: 40 mg Documented By: JENNIFER Fluticasone/Vilanterol (Fluticasone/Vilanterol 100/25 Blst.W.Dev) 1 puff INHALE RDAILY [facility] Last Admin: 08/04/24 08:27 Dose: 1 puff Documented By: DILCIA Furosemide (Furosemide 20 Mg Tablet) 20 mg PO DAILY [facility]; Protocol Last Admin: 08/04/24 07:25 Dose: 20 mg Documented By: MARICEL Hydromorphone HCl (Hydromorphone Hcl 1 Mg/Ml Syringe) 1 mg IVPUSH Q4H PRN; Protocol PRN Reason: Pain, Severe (Pain Scale 7-10) Last Admin: 08/04/24 03:12 Dose: 1 mg Documented By: ROVERTO Isosorbide Mononitrate (Isosorbide Mononitrate 30 Mg Tab.Er.24h) 30 mg PO DAILY [facility]; Protocol Last Admin: 08/04/24 07:24 Dose: 30 mg Documented By: MARICEL Ketorolac Tromethamine (Ketorolac Tromethamine 15 Mg/Ml Vial) 15 mg IVPUSH Q6H PRN PRN Reason: Pain, Moderate(Pain Scale 4-6) Last Admin: 08/04/24 07:27 Dose: 15 mg Documented By: MARICEL Lidocaine (Lidocaine 4 % Patch Adh..Patch) 2 patch TRANSDERMA DAILY [facility]; Protocol Last Admin: 08/04/24 07:29 Dose: Not Given Documented By: MARICEL Non-Admin Reason: Patient Refused Magnesium Hydroxide (Milk Of Magnesia 30 Ml Oral.Susp) 30 ml PO DAILY PRN PRN Reason: Constipation Melatonin (Melatonin 3 Mg Tablet) 6 mg PO BEDTIME PRN PRN Reason: Insomnia Last Admin: 08/03/24 23:03 Dose: 6 mg Documented By: ROVERTO Metoprolol Succinate (Metoprolol Succinate Er 50 Mg Tab.Er.24h) 50 mg PO DAILY [facility]; Protocol Last Admin: 08/04/24 07:24 Dose: 50 mg Documented By: MARICEL Omeprazole (Omeprazole 20 Mg Capsule.Dr) 20 mg PO BID@0630,1630 [facility] Last Admin: 08/04/24 06:25 Dose: 20 mg Documented By: ROVERTO Oxycodone HCl (Oxycodone Hcl Immed Release 5 Mg Tablet) 10 mg PO Q6H [facility] Last Admin: 08/04/24 07:24 Dose: 10 mg Documented By: MARICEL Sodium Chloride (0.9 % Sodium Chloride Flush 3 Ml Syringe) 3 ml IVFLUSH QSHIFT [facility] Last Admin: 08/04/24 07:23 Dose: 3 ml Documented By: MARICEL Labs 08/01/24 12:10 08/03/24 10:15 Labs: Laboratory Results - last 24 hr 08/02/24 08/03/24 08/03/24 10:11 10:15 16:57 Anion Gap 12 Estim Creat Clear Calc 84.1 Estimated GFR > 60 Random Glucose 115 Calcium 9.6 D Total Bilirubin 1.3 H AST 41 H ALT 81 H Alkaline Phosphatase 171 H Lactate Dehydrogenase 149 Total Protein 7.3 Albumin 4.0 Carcinoembryonic Ag 4.40 Prostate Specific Ag 0.21 IgG Total 1292 IgA Total 454 H IgM 190 RADHA Interpretation SEE NOTE Assessment and Plan (1) Compression fracture of body of thoracic vertebra: Status: Acute Plan d4 for 64yo M with ischemic CM, HFrEF, COPD, CAD s/p CABG + PCI, GERD, HTN, HLD, HTN admitted for intractable back pain due to acute/subacute T-spine fractures intractable back pain due to compression fractures with question of pathological fracture - CTA chest showed acute to subacute T5 compression fracture and subacute to chronic T7 compression fracture with sclerotic changes raising the possibility of underlying pathology/malignancy. There is also an acute to subacute nondisplaced T4 spinous process fracture. - Bone scan showed intense uptake involving T5 and T7, confirming acute/subacute nature of fractures. In review of the recent CT PA examination of the chest, both fractures appear acute/subacute, and there is diffuse sclerosis throughout the T5 vertebral body highly suspicious for pathological fracture. - RADHA normal, sFLCR pending; PSA normal; CA 19-9 + CEA pending; Oncology consulted; consider CT-guided biopsy of T5 lesion as outpt - scheduled oxycodone PO, prn IV ketorolac and hydromorphone; scheduled baclofen + prn cyclobenzaprine + lidocaine patch asymptomatic choledocholithiasis with biliary duct dilation - low fat diet, GI consult AUR - probably due to opioids though MRI of T- and L-spine pending; monitor bladder scans AUD - prn CIWA, no withdrawal symptoms ischemic CM chronic HFrEF - continue Imdur, metoprolol succinate, PO furosemide CAD - continue atorvastatin, metoprolol succinate, ASA, ezetimibe HTN - continue amlodipine, metoprolol succinate, frosemide COPD without acute exac - Breo, prn albuterol GERD - PPI VTE ppx - SCDs dispo - plan home with PT eventually In my clinical judgment, the patient requires continued inpatient hospitalization for the following reasons: pain control, malignancy workup Total time managing care of this patient today: 35 minutes. Quality Stroke Does the patient have a stroke diagnosis?: No VTE Prior VTE?: No VTE Risk Level:: Medical - moderate - high VTE Device Contraindication: Treatment Not Indicated VTE Drug Contraindication: N/A - Med Ordered
[2024-08-04 09:27] LABS: Alanine Aminotransferase 62 U/L (0-40); Albumin Level 3.9 g/dL (3.5-5.0); Alkaline Phosphatase 169 U/L (39-117); Anion Gap 14 (12-20); Aspartate Amino Transferase 33 U/L (5-37); Bilirubin Total 1.1 mg/dL (0.0-1.0); Blood Urea Nitrogen 20 mg/dL (9-16); Calcium 9.6 mg/dL (8.4-10.2); Carbon Dioxide 26 mmol/L (22-29); Chloride 98 mmol/L (96-108); Creatinine Clr Calc Pharmacy 84.1; Estimated Glomerular Filt Rate > 60; Glucose Random 115 mg/dL (60-115); Potassium 3.5 mmol/L (3.3-5.1); Sodium 134 mmol/L (135-145); Total Protein 7.3 g/dL (6.5-8.0)
--- NOTE | 2024-08-04 09:50 | PC.NURSE ---
pt ambulated to bathroom with 1 assist and walker , pt voided , pt bladder scanned post void for 2mls
--- NOTE | 2024-08-04 10:12 | P.CNGI_ITS ---
History of Present Illness Data of Consult Service Date: 08/04/24 Requesting physician: Italia Wise Primary Care Provider: Boy Jorge MD HPI Reason for consult: choledocholithiasis/ CBD dilation on malignancy wokrup 64 YM with ischemic cardiomyopathy, heart failure with reduced EF, COPD CAD s/p bypass and stenting, GERD, HLD, HTN recently treated for COPD exacerbation by PCP admitted to [facility] on 08/01/24 with sob and severe back pain ongoing x 4 days. GI consulted for choledocholithiasis seen on abdominal MRI. Pt reports he had a violent coughing spell and a week later he noted worsening back pain with taking a deep breath and coughing and significant pain/discomfort at rest, rates 10/10. He described the pain as constant, localized to mid back and worsens with any movement, breathing, palpation. Reports he feels short of breath as he is unable to take a deep breath without significant pain. Reports cough has baseline, no expectoration. Pt reports constipation with no BM x past 4-5 days - given MOM and prune juice He notes some upper abdominal pain after he took MOM. Pt complains of sweating and denies fevers, chills, sore throat, congestion, sick contacts, palpitations, or chest pain. Pt denies known hx of liver disease or gallstones in the past. Pt admits to smoking 1 PPD x several yrs and quitted 1 year ago. Pt reports he takes 4 beers daily. 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 Renal function electrolyte levels are normal. AST 88, ALT 170, alkaline phosphatase 175. Troponins flat. BNP 220. Negative for COVID-19, RSV, influenza. CTA of the chest negative for any aortic dissection or aneurysm. No PE identified. There is left lower lobe pleural parenchymal scarring but no pneumonia or effusion. There is an acute to subacute T5 compression fracture and subacute to chronic T7 compression fracture with sclerotic changes raising the possibility of underlying pathology/malignancy. There is also an acute to subacute nondisplaced T4 spinous process fracture. In the ED, he has received multiple doses of IV morphine, hydromorphone, cyclobenzaprine with limited improvement. Pt was admitted for further management of intractable back pain secondary to multiple compression fractures. He is noted to be tremulous on exam. He states he feels this is secondary to hunger and pain. Reports drinking 4 beers on a daily basis. Denies any illicit drug use but does smoke marijuana occasionally. He is a former cigarette smoker. 08/03/24 ABD MRI SHOWED: 1. Dilated common bile duct with mild intrahepatic biliary ductal dilatation. Choledocholithiasis present in the distal common bile duct measuring 3 mm. 2. No evidence of pancreatitis. No evidence of cholecystitis. 3. Hemangioma present within segment II of the liver measuring 2.5 cm. 4. Bilateral simple renal cysts. Review of Systems 2 Review of Systems: Yes all other systems are reviewed and are negative [facility] Past Medical History Medical History Colon cancer screening Obesity (BMI 30-39.9) Tobacco abuse Heart failure with reduced ejection fraction Adult general medical exam Screening for prostate cancer Ischemic cardiomyopathy Colonoscopy refused Umbilical hernia COPD (chronic obstructive pulmonary disease) Coronary artery disease GERD (gastroesophageal reflux disease) Hypercholesterolemia Insomnia Hypertension Family History Family History Father No problems noted. Mother No problems noted. Sister No problems noted. Sister No problems noted. Brother No problems noted. Brother Myocardial infarct Liver cancer Surgical History Surgical History Hx of CABG Social History Social History Household Members: Family Household Members Other:: brother Housing: House Do you presently have visiting nurse or other home services: No Alcohol intake: current Alcohol intake frequency: 3 or more drinks per day Alcohol type: beer Patient Tobacco Use Status: Former Tobacco user Tobacco use type: Cigarette e-Cigarette/Vaping Use: Never Used Second Hand Smoke Exposure: No Substance Use Type: Marijuana Advance Directives Date on File: 01/07/23 service: No Current occupational status: disabled Cognitive needs: No Hearing needs: No Vision needs: Yes Meds Allergies Allergy/AdvReac Type Severity Reaction Status Date / Time ARB-Angiotensin Receptor AdvReac Severe [place] Verified 08/01/24 11:10 Antagonist MALVIN Inhibitors AdvReac Intermediate [place] Verified 08/01/24 11:10 Active Medications: Current Medications Acetaminophen (Acetaminophen 325 Mg Tablet) 650 mg PO Q6H PRN PRN Reason: Pain, Mild 1-3,fever,headache Last Admin: 08/04/24 07:25 Dose: 650 mg Albuterol Sulfate (Albuterol Sulfate 90 Mcg 8 Gm Inhaler) 2 puff INHALE Q6H PRN PRN Reason: shortness of breath or wheezing Amlodipine Besylate (Amlodipine Besylate 5 Mg Tablet) 5 mg PO DAILY [facility]; Protocol Last Admin: 08/04/24 07:25 Dose: 5 mg Aspirin (Aspirin Enteric Coated 81 Mg Tablet.Dr) 81 mg PO DAILY [facility] Last Admin: 08/04/24 07:25 Dose: 81 mg Atorvastatin Calcium (Atorvastatin Calcium 80 Mg Tablet) 80 mg PO DAILY [facility] Last Admin: 08/04/24 07:25 Dose: 80 mg Baclofen (Baclofen 10 Mg Tablet) 10 mg PO QID [facility] Last Admin: 08/04/24 07:24 Dose: 10 mg Calcium Carbonate (Calcium Carbonate 750 Mg Tab.Chew) 750 mg PO Q4H PRN PRN Reason: Heartburn Cyclobenzaprine HCl (Cyclobenzaprine Hcl 10 Mg Tablet) 10 mg PO BEDTIME PRN PRN Reason: for muscle spasm Last Admin: 08/03/24 22:26 Dose: 10 mg Ezetimibe (Ezetimibe 10 Mg Tablet) 10 mg PO DAILY [facility] Last Admin: 08/04/24 07:25 Dose: 10 mg Enoxaparin Sodium (Enoxaparin Sodium 40 Mg/0.4 Ml Syringe) 40 mg SUBCUT Q24H [facility] Last Admin: 08/02/24 21:00 Dose: 40 mg Fluticasone/Vilanterol (Fluticasone/Vilanterol 100/25 Blst.W.Dev) 1 puff INHALE RDAILY [facility] Last Admin: 08/04/24 08:27 Dose: 1 puff Furosemide (Furosemide 20 Mg Tablet) 20 mg PO DAILY [facility]; Protocol Last Admin: 08/04/24 07:25 Dose: 20 mg Hydromorphone HCl (Hydromorphone Hcl 1 Mg/Ml Syringe) 1 mg IVPUSH Q4H PRN; Protocol PRN Reason: Pain, Severe (Pain Scale 7-10) Last Admin: 08/04/24 03:12 Dose: 1 mg Isosorbide Mononitrate (Isosorbide Mononitrate 30 Mg Tab.Er.24h) 30 mg PO DAILY [facility]; Protocol Last Admin: 08/04/24 07:24 Dose: 30 mg Ketorolac Tromethamine (Ketorolac Tromethamine 15 Mg/Ml Vial) 15 mg IVPUSH Q6H PRN PRN Reason: Pain, Moderate(Pain Scale 4-6) Last Admin: 08/04/24 07:27 Dose: 15 mg Lidocaine (Lidocaine 4 % Patch Adh..Patch) 2 patch TRANSDERMA DAILY [facility]; Protocol Last Admin: 08/04/24 07:29 Dose: Not Given Magnesium Hydroxide (Milk Of Magnesia 30 Ml Oral.Susp) 30 ml PO DAILY PRN PRN Reason: Constipation Melatonin (Melatonin 3 Mg Tablet) 6 mg PO BEDTIME PRN PRN Reason: Insomnia Last Admin: 08/03/24 23:03 Dose: 6 mg Metoprolol Succinate (Metoprolol Succinate Er 50 Mg Tab.Er.24h) 50 mg PO DAILY [facility]; Protocol Last Admin: 08/04/24 07:24 Dose: 50 mg Omeprazole (Omeprazole 20 Mg Capsule.Dr) 20 mg PO BID@0630,1630 [facility] Last Admin: 08/04/24 06:25 Dose: 20 mg Oxycodone HCl (Oxycodone Hcl Immed Release 5 Mg Tablet) 10 mg PO Q4H [facility] Last Admin: 08/04/24 09:54 Dose: Not Given Sodium Chloride (0.9 % Sodium Chloride Flush 3 Ml Syringe) 3 ml IVFLUSH QSHIFT [facility] Last Admin: 08/04/24 07:23 Dose: 3 ml Home Medications ?Medication ?Instructions ?Recorded ?Confirmed ?Last Taken ?Type aspirin 81 mg tablet,delayed 81 mg PO DAILY 09/10/21 08/01/24 08/01/24 History release melatonin 10 mg tablet 10 mg PO BEDTIME 08/01/24 08/01/24 Unknown History Physical Exam 2 Vital Signs: Vital Signs: Last Vital Signs Temp 96.9 F 08/04/24 07:16 Pulse 88 08/04/24 08:30 Resp 18 08/04/24 08:30 BP 166/78 H 08/04/24 07:16 Pulse Ox 93 08/04/24 07:16 O2 Del Method Room Air 08/04/24 07:16 BMI result Body Mass Index 27.9 Const: General: no acute distress and anxious Nutritional Appearance: o verweight Orientation/consciousness: patient oriented x3 Limitations: p hysical limitations HEENT: Head: Yes normal to inspection Ears: hearing grossly normal bilaterally Eyes: Sclerae: sclerae normal Pupils: Equal, round and reactive pupils present Neck: Neck: Yes normal visual inspection Chest: Chest palpation & inspection: normal inspection of the chest Resp: Effort & Inspection: normal respiratory effort Auscultation: clear to auscultation bilaterally Cardio: Palpation: normal PMI Rate: regular rate Rhythm: regular rhythm Heart sounds: S1 normal heart sound present, S2 normal heart sound present and no murmurs GI: Palpation (GI): Soft to palpation, nontender and No hepatosplenomegaly present Auscultation: normal bowel sounds Rectal Exam - Male: Yes deferred Back/Spine/Pelvis: Other: tender mid-T spine and left paraspinal musculature Skin: General skin exam: no rashes or lesions noted Neuro: General: patient oriented x3, gait normal and moves all extremities Cranial nerves: Yes Equal, round and reactive pupils present Psych: Appearance: grossly normal Mental Status: mental status grossly normal Results Labs 08/01/24 12:10 08/04/24 08:26 Labs: BMP 08/03/24 08/04/24 10:15 08:26 Sodium 134 L 134 L Potassium 3.9 3.5 Chloride 100 98 Carbon Dioxide 26 26 BUN 17 H 20 H Creatinine 0.92 0.92 Calcium 9.6 D 9.6 Liver Function 08/03/24 08/04/24 Range/Units 10:15 08:26 Total Bilirubin 1.3 H 1.1 H (0.0-1.0) mg/dL AST 41 H 33 (5-37) U/L ALT 81 H 62 H (0-40) U/L Alkaline Phosphatase 171 H 169 H (39-117) U/L Albumin 4.0 3.9 (3.5-5.0) g/dL Assessment and Plan (1) Choledocholithiasis: Status: Acute Plan 64 YM with ischemic cardiomyopathy, heart failure with reduced EF, COPD CAD s/p bypass and stenting, GERD, HLD, HTN recently treated for COPD exacerbation by PCP admitted to [facility] on 08/01/24 with sob and severe back pain ongoing x 4 days. GI consulted for choledocholithiasis seen on abdominal MRI. Pt reports he takes 4 beers daily. Labs showed AST 88, ALT 170, alkaline phosphatase 175 - FU LFTs are improving 08/03/24 ABD MRI SHOWED: 1. Dilated common bile duct with mild intrahepatic biliary ductal dilatation. Choledocholithiasis present in the distal common bile duct measuring 3 mm. Back pain is likely due to multiple vertebral fractures - ? Pathologic fractures RECOMMENDATIONS 1. Agree with PO Omeprazole and IV pain medications 2. Follow LFTs daily. 3. Abd US to check for non radiopaque gallstone. If gallstones are detected on the US, he will need a Lap angelina to prevent CBD obstruction in the future 4. Anticipate CBD stone will pass spotaneously given small size of CBD stone. Pt is at increased risk for anesthesia given cardiac issues and will have difficulty lying in a prone position for the ERCP procedure 5. Further workup to be planned once results of vertebral bx are available Procedures Date of Service Date of Service: 08/04/24
[2024-08-04 11:24] LABS: Kappa Light Chain, Free Serum 51.1 mg/L (3.3-19.4)
[2024-08-04] MEDS: Milk of Magnesia 30 ML ORAL.SUSP PO (13:51)
[2024-08-04 15:14] VITALS: BP 166/86; PULSE 89; RESP 20; TEMP 36.5; O2SAT 93
[2024-08-04] MEDS: ondansetron HCL 4 MG/2 ML VIAL IVPUSH (18:42)
[2024-08-04 19:00] VITALS: BP 147/72; PULSE 98; RESP 18; TEMP 37.1; O2SAT 94
[2024-08-04] MEDS: Melatonin 3 MG TABLET 6 MG PO (20:28)
--- NOTE | 2024-08-04 22:51 | PC.NURSE ---
when assessing pt tonight he was very loopy and unable to answer questions appropriately. CIWA score was a 9. Dr. Rendon made aware. 2125 scheduled oxy held d/t pt's mental status. will continue to monitor.
[2024-08-05 03:18] VITALS: BP 114/84; PULSE 103; RESP 18; TEMP 36.7; O2SAT 92
--- NOTE | 2024-08-05 03:35 | PC.NURSE ---
pt's O2 sat at 0325 was 83% on room air. added 3L O2 via NC and sat went up to 92%. Dr. Justice harris.
[2024-08-05] MEDS: LORazepam 1 MG TABLET 2 MG PO (05:02)
[2024-08-05] MEDS: Omeprazole 20 MG CAPSULE.DR PO ×2 (05:02→15:41)
--- NOTE | 2024-08-05 05:04 | PC.NURSE ---
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 Rendon, one time dose of 2mg PO Ativan ordered and administered at 0500. will continue to monitor pt.
[2024-08-05] MEDS: Albuterol/Iprat 2.5/0.5MG 3 ML AMPUL.NEB INHALE (06:05)
[2024-08-05 06:08] VITALS: PULSE 94; RESP 18; O2SAT 94
[2024-08-05] MEDS: 0.9 % Sodium Chloride Flush 3 ML SYRINGE IVFLUSH ×3 (06:52→20:14)
[2024-08-05] MEDS: oxyCODONE HCl Immed Release 5 MG TABLET 10 MG PO ×4 (06:55→14:02)
[2024-08-05 07:07] VITALS: BP 169/86; PULSE 116; RESP 20; TEMP 37; O2SAT 95
[2024-08-05] MEDS: Isosorbide Mononitrate 30 MG TAB.ER.24H PO (07:58)
[2024-08-05] MEDS: Metoprolol Succinate ER 50 MG TAB.ER.24H PO (07:58)
[2024-08-05] MEDS: Ezetimibe 10 MG TABLET PO (07:58)
[2024-08-05] MEDS: Furosemide 20 MG TABLET PO (07:58)
[2024-08-05] MEDS: Atorvastatin Calcium 80 MG TABLET PO (07:58)
[2024-08-05] MEDS: amLODIPine Besylate 5 MG TABLET PO (07:58)
[2024-08-05] MEDS: Aspirin Enteric Coated 81 MG TABLET.DR PO (07:59)
[2024-08-05] MEDS: Baclofen 10 MG TABLET PO ×4 (07:59→22:57)
[2024-08-05 08:45] LABS: Venous Blood Gas Refer to POC result
[2024-08-05 08:55] LABS: VBG Base Excess 4.4 mmol/L; VBG HCO3 30 mmol/L (22-26); VBG pCO2 47 mmHg; VBG pH 7.41 (7.32-7.43); VBG pO2 38 mmHg
--- NOTE | 2024-08-05 10:44 | P.PNIM_ITS ---
Subjective Subjective Date of Service: 08/05/24 Interval History: became hypoxic and short of breath overnight this AM tremulous, CIWA 11; was given lorazepam 2 mg PO once back pain better controlled no abd pain Review of Systems Review of Systems: Yes all other systems are reviewed and are negative Physical Exam 2 Vital Signs: Vital Signs: Last Vital Signs Temp 98.6 F 08/05/24 07:07 Pulse 116 H 08/05/24 07:07 Resp 20 08/05/24 07:07 BP 169/86 H 08/05/24 07:07 Pulse Ox 95 08/05/24 07:07 O2 Del Method Nasal Cannula 08/05/24 07:07 O2 Flow Rate 3 08/05/24 07:07 BMI result Body Mass Index 27.9 Gen: in no acute distress HEENT: sclera anicteric, moist mucus membranes Neck: supple Lungs: diminished + wheezing Heart: regular + tachycardic, no murmurs Abd: soft, non-tender, non-distended, no Claros sign Back: tender mid-T spine and left paraspinal musculature Ext: no edema Skin: warm/well-perfused Neuro: alert and oriented x3, no focal findings, tremulous Psych: appropriate affect Objective Data Active Medications Acetaminophen (Acetaminophen 325 Mg Tablet) 650 mg PO Q6H PRN PRN Reason: Pain, Mild 1-3,fever,headache Last Admin: 08/04/24 20:30 Dose: 650 mg Documented By: ROVERTO Albuterol Sulfate (Albuterol Sulfate 90 Mcg 8 Gm Inhaler) 2 puff INHALE Q6H PRN PRN Reason: shortness of breath or wheezing Albuterol/Ipratropium (Albuterol/Iprat 2.5/0.5mg 3 Ml Ampul.Neb) 3 ml INHALE RQ4H WHILE AWAKE PRN PRN Reason: Shortness of Breath Last Admin: 08/05/24 06:05 Dose: 3 ml Documented By: MANOHAR Amlodipine Besylate (Amlodipine Besylate 5 Mg Tablet) 5 mg PO DAILY [facility]; Protocol Last Admin: 08/05/24 07:58 Dose: 5 mg Documented By: ANTOINE Aspirin (Aspirin Enteric Coated 81 Mg Tablet.) 81 mg PO DAILY [facility] Last Admin: 08/05/24 07:59 Dose: 81 mg Documented By: ANTOINE Atorvastatin Calcium (Atorvastatin Calcium 80 Mg Tablet) 80 mg PO DAILY [facility] Last Admin: 08/05/24 07:58 Dose: 80 mg Documented By: ANTOINE Baclofen (Baclofen 10 Mg Tablet) 10 mg PO QID [facility] Last Admin: 08/05/24 07:59 Dose: 10 mg Documented By: ANTOINE Calcium Carbonate (Calcium Carbonate 750 Mg Tab.Chew) 750 mg PO Q4H PRN PRN Reason: Heartburn Cyclobenzaprine HCl (Cyclobenzaprine Hcl 10 Mg Tablet) 10 mg PO BEDTIME PRN PRN Reason: for muscle spasm Last Admin: 08/03/24 22:26 Dose: 10 mg Documented By: ROVERTO Ezetimibe (Ezetimibe 10 Mg Tablet) 10 mg PO DAILY [facility] Last Admin: 08/05/24 07:58 Dose: 10 mg Documented By: ANTOINE Enoxaparin Sodium (Enoxaparin Sodium 40 Mg/0.4 Ml Syringe) 40 mg SUBCUT Q24H [facility] Last Admin: 08/02/24 21:00 Dose: 40 mg Documented By: JENNIFER Fluticasone/Vilanterol (Fluticasone/Vilanterol 100/25 Blst.W.Dev) 1 puff INHALE RDAILY [facility] Last Admin: 08/04/24 08:27 Dose: 1 puff Documented By: DILCIA Furosemide (Furosemide 20 Mg Tablet) 20 mg PO DAILY [facility]; Protocol Last Admin: 08/05/24 07:58 Dose: 20 mg Documented By: ANTOINE Hydromorphone HCl (Hydromorphone Hcl 1 Mg/Ml Syringe) 1 mg IVPUSH Q4H PRN; Protocol PRN Reason: Pain, Severe (Pain Scale 7-10) Last Admin: 08/04/24 23:48 Dose: 1 mg Documented By: ROVERTO Isosorbide Mononitrate (Isosorbide Mononitrate 30 Mg Tab.Er.24h) 30 mg PO DAILY [facility]; Protocol Last Admin: 08/05/24 07:58 Dose: 30 mg Documented By: ANTOINE Ketorolac Tromethamine (Ketorolac Tromethamine 15 Mg/Ml Vial) 15 mg IVPUSH Q6H PRN PRN Reason: Pain, Moderate(Pain Scale 4-6) Last Admin: 08/04/24 07:27 Dose: 15 mg Documented By: MARICEL Lidocaine (Lidocaine 4 % Patch Adh..Patch) 2 patch TRANSDERMA DAILY [facility]; Protocol Last Admin: 08/05/24 08:00 Dose: Not Given Documented By: ANTOINE Non-Admin Reason: Patient Refused Lorazepam (Lorazepam 1 Mg Tablet) 1 mg PO Q4H PRN PRN Reason: Breakthrough alcohol withdrawa Stop: 08/09/24 04:44 Magnesium Hydroxide (Milk Of Magnesia 30 Ml Oral.Susp) 30 ml PO DAILY PRN PRN Reason: Constipation Last Admin: 08/04/24 13:51 Dose: 30 ml Documented By: MARICEL Melatonin (Melatonin 3 Mg Tablet) 6 mg PO BEDTIME PRN PRN Reason: Insomnia Last Admin: 08/04/24 20:28 Dose: 6 mg Documented By: ROVERTO Metoprolol Succinate (Metoprolol Succinate Er 50 Mg Tab.Er.24h) 50 mg PO DAILY [facility]; Protocol Last Admin: 08/05/24 07:58 Dose: 50 mg Documented By: ANTOINE Omeprazole (Omeprazole 20 Mg Capsule.Dr) 20 mg PO BID@0630,1630 [facility] Last Admin: 08/05/24 05:02 Dose: 20 mg Documented By: ROVERTO Ondansetron HCl (Ondansetron Hcl 4 Mg/2 Ml Vial) 4 mg IVPUSH Q4H PRN PRN Reason: Nausea and Vomiting Last Admin: 08/04/24 18:42 Dose: 4 mg Documented By: MARICEL Oxycodone HCl (Oxycodone Hcl Immed Release 5 Mg Tablet) 10 mg PO Q4H [facility] Last Admin: 08/05/24 10:30 Dose: 10 mg Documented By: ANTOINE Pharmacy Consult (Consult Rx Etoh Phenob Im/Po) 1 each MISCELLANE ONCE PRN; Protocol PRN Reason: Consult order Sodium Chloride (0.9 % Sodium Chloride Flush 3 Ml Syringe) 3 ml IVFLUSH QSHIFT [facility] Last Admin: 08/05/24 06:52 Dose: 3 ml Documented By: ANTOINE Labs 08/01/24 12:10 08/04/24 08:26 Labs: Laboratory Results - last 24 hr 08/03/24 08/05/24 16:57 08:42 VBG pH 7.41 VBG pCO2 47 VBG pO2 38 VBG HCO3 30 H VBG O2 Saturation 62.0 VBG Base Excess 4.4 Free [place] LC, Quant 51.1 H Free [place] LC, Quant 34.0 H Free [place]/Lambda Ratio 1.50 Assessment and Plan (1) Compression fracture of body of thoracic vertebra: Status: Acute Plan [id number] 64yo M with ischemic CM, HFrEF, COPD, CAD s/p CABG + PCI, GERD, HTN, HLD, HTN admitted for intractable back pain due to acute/subacute T-spine fractures intractable back pain due to compression fractures with question of pathological fracture - CTA chest showed acute to subacute T5 compression fracture and subacute to chronic T7 compression fracture with sclerotic changes raising the possibility of underlying pathology/malignancy. There is also an acute to subacute nondisplaced T4 spinous process fracture. - Bone scan showed intense uptake involving T5 and T7, confirming acute/subacute nature of fractures. In review of the recent CT PA examination of the chest, both fractures appear acute/subacute, and there is diffuse sclerosis throughout the T5 vertebral body highly suspicious for pathological fracture. - RADHA + sFLCR normal; PSA normal; CA 19-9 + CEA pending; Oncology consulted; consider CT-guided biopsy of T5 lesion as outpt - scheduled oxycodone PO, prn IV ketorolac and hydromorphone; scheduled baclofen + prn cyclobenzaprine; scheduled lidocaine patch asymptomatic choledocholithiasis with biliary duct dilation - low fat diet, GI consulted; likely stone will pass on its own; check abd US and if gallstones present will need future lap angelina acute hypoxic respiratory failrue due to acute exacerbation of COPD - recheck flu/RSV/Covid PCR - start prednisone 08/05-, nebs - continue Breo AUD with withdrawal syndrome - start phenobarbital taper; thiamine, folate; Addiction Medicine AUR - probably due to opioids; has not recurred ischemic CM chronic HFrEF - continue Imdur, metoprolol succinate, PO furosemide CAD - continue atorvastatin, metoprolol succinate, ASA, ezetimibe HTN - continue amlodipine, metoprolol succinate, frosemide GERD - PPI VTE ppx - enoxaparin dispo - plan home with PT eventually In my clinical judgment, the patient requires continued inpatient hospitalization for the following reasons: pain control, malignancy workup Total time managing care of this patient today: 35 minutes. Quality Stroke Does the patient have a stroke diagnosis?: No VTE Prior VTE?: No VTE Risk Level:: Medical - moderate - high VTE Device Contraindication: Treatment Not Indicated VTE Drug Contraindication: N/A - Med Ordered
[2024-08-05 10:48] LABS: Carbohydrate Antigen 19-9 <3 U/mL (<34)
[2024-08-05] MEDS: PHENobarbitaL sodium 130 MG/ML IM ONCE 219 MG IM (11:38)
[2024-08-05] MEDS: Folic Acid 1 MG TABLET PO (11:40)
[2024-08-05] MEDS: predniSONE 20 MG TABLET 40 MG PO (11:40)
[2024-08-05] MEDS: Thiamine HCL 100 MG TABLET PO (11:40)
[2024-08-05] MEDS: Fluticasone/Vilanterol 100/25 BLST.W.DEV 1 PUFF INHALE (11:41)
[2024-08-05 11:43] VITALS: PULSE 103; RESP 18; O2SAT 93
[2024-08-05 11:54] LABS: Influenza A PCR NEGATIVE (Negative); Influenza B PCR NEGATIVE (Negative); Resp Syncy Virus RNA Qual PCR NEGATIVE (Negative); SARS COV2 PCR INHOUSE NEGATIVE (Negative)
[2024-08-05] MEDS: PHENobarbitaL sodium 130 MG/ML VIAL IM Q3Hx2 164 MG IM ×2 (13:53→17:21)
--- NOTE | 2024-08-05 15:34 | PC.NURSE ---
Addendum entered by Rachelle Myers RN 08/05/24 18:22: 15:55 made aware via tiger text, assessed pt at bedside, CIWA 11. Per MD no new orders. Original Note: Assumed care of patient at 1500, at this time pt is sleeping, awoken to voice and light touch, pt is able to state name and year, pt continues to be confused. All safety measures in place, vitals signs stable.
[2024-08-05] MEDS: Acetaminophen 325 MG TABLET 650 MG PO (15:41)
--- NOTE | 2024-08-05 15:46 | MHC.CM.PN ---
per rounds pt pt still withdrawing not medicalky ready for dc
[2024-08-05 15:51] VITALS: BP 105/56; PULSE 88; RESP 18; TEMP 37.3; O2SAT 97
[2024-08-05] MEDS: Ketorolac Tromethamine 15 MG/ML VIAL IVPUSH (18:10)
[2024-08-05 19:39] VITALS: BP 113/56; PULSE 93; RESP 16; TEMP 36.9; O2SAT 96
[2024-08-05] MEDS: Enoxaparin Sodium 40 MG/0.4 ML SYRINGE SUBCUT (20:11)
[2024-08-06] MEDS: Ketorolac Tromethamine 15 MG/ML VIAL IVPUSH ×2 (00:38→20:55)
[2024-08-06 02:55] VITALS: BP 147/73; PULSE 77; RESP 18; TEMP 37; O2SAT 98
[2024-08-06] MEDS: Omeprazole 20 MG CAPSULE.DR PO ×2 (06:02→16:42)
[2024-08-06 06:53] VITALS: BP 130/64; PULSE 90; PULSE 93; RESP 16; RESP 17; TEMP 36.6; O2SAT 96
[2024-08-06 08:30] LABS: Hematocrit 40.8 % (42.0-52.0); Hemoglobin 13.9 g/dl (14.0-18.0); Mean Corpuscular HGB Conc 34.1 g/dl (31.0-36.0); Mean Corpuscular Hemoglobin 32.4 pg (27.0-33.0); Mean Corpuscular Volume 95.1 fL (80.0-98.0); Mean Platelet Volume 10.5 fL (9.4-12.4); Platelet Count 142 X10*3/uL (160-400); Red Blood Count 4.29 X10*6/uL (4.60-5.80); Red Cell Distribution Width 14.6 % (11.0-16.0); White Blood Count 15.2 X10*3/uL (4.8-10.8)
[2024-08-06 08:31] LABS: Venous Blood Gas Refer to POC result
[2024-08-06 08:35] LABS: VBG Base Excess 4.9 mmol/L; VBG HCO3 28 mmol/L (22-26); VBG pCO2 39 mmHg; VBG pH 7.46 (7.32-7.43); VBG pO2 62 mmHg
[2024-08-06 08:53] LABS: Alanine Aminotransferase 220 U/L (0-40); Albumin Level 3.5 g/dL (3.5-5.0); Alkaline Phosphatase 268 U/L (39-117); Anion Gap 12 (12-20); Aspartate Amino Transferase 271 U/L (5-37); Bilirubin Total 3.1 mg/dL (0.0-1.0); Blood Urea Nitrogen 34 mg/dL (9-16); Calcium 9.2 mg/dL (8.4-10.2); Carbon Dioxide 26 mmol/L (22-29); Chloride 101 mmol/L (96-108); Creatinine Clr Calc Pharmacy 68.5; Estimated Glomerular Filt Rate > 60; Glucose Random 121 mg/dL (60-115); Magnesium 2.9 mg/dL (1.6-2.6); Potassium 3.3 mmol/L (3.3-5.1); Sodium 136 mmol/L (135-145); Total Protein 6.8 g/dL (6.5-8.0)
[2024-08-06] MEDS: predniSONE 20 MG TABLET 40 MG PO (09:21)
[2024-08-06] MEDS: Aspirin Enteric Coated 81 MG TABLET.DR PO (09:21)
[2024-08-06] MEDS: Atorvastatin Calcium 80 MG TABLET PO (09:21)
[2024-08-06] MEDS: Isosorbide Mononitrate 30 MG TAB.ER.24H PO (09:21)
[2024-08-06] MEDS: Baclofen 10 MG TABLET PO ×4 (09:21→20:49)
[2024-08-06] MEDS: amLODIPine Besylate 5 MG TABLET PO (09:22)
[2024-08-06] MEDS: Folic Acid 1 MG TABLET PO (09:22)
[2024-08-06] MEDS: PHENobarbitaL 15 MG TABLET 45 MG PO ×2 (09:22→20:48)
[2024-08-06] MEDS: Ezetimibe 10 MG TABLET PO (09:22)
[2024-08-06] MEDS: Metoprolol Succinate ER 50 MG TAB.ER.24H PO (09:22)
[2024-08-06] MEDS: Lidocaine 4 % Patch ADH..PATCH 2 PATCH TRANSDERMA (09:22)
[2024-08-06] MEDS: Furosemide 20 MG TABLET PO (09:22)
[2024-08-06] MEDS: Thiamine HCL 100 MG TABLET PO (09:22)
[2024-08-06] MEDS: 0.9 % Sodium Chloride Flush 3 ML SYRINGE IVFLUSH ×3 (09:29→20:49)
--- NOTE | 2024-08-06 11:12 | P.PNIM_ITS ---
Subjective Subjective Date of Service: 08/06/24 Interval History: tremor improved, breathing improved back pain improving Review of Systems Review of Systems: Yes all other systems are reviewed and are negative Physical Exam 2 Vital Signs: Vital Signs: Last Vital Signs Temp 98 F 08/06/24 06:53 Pulse 93 08/06/24 06:53 Resp 17 08/06/24 06:53 BP 130/64 08/06/24 06:53 Pulse Ox 96 08/06/24 06:53 O2 Del Method Nasal Cannula 08/06/24 06:53 O2 Flow Rate 2 08/06/24 06:53 BMI result Body Mass Index 27.9 Gen: in no acute distress HEENT: sclera anicteric, moist mucus membranes Neck: supple Lungs: diminished Heart: regular, no murmurs Abd: soft, non-tender, non-distended, no Claros sign Back: tender mid-T spine and left paraspinal musculature Ext: no edema Skin: warm/well-perfused Neuro: alert and oriented x3, no focal findings Psych: appropriate affect Objective Data Active Medications Acetaminophen (Acetaminophen 325 Mg Tablet) 650 mg PO Q6H PRN PRN Reason: Pain, Mild 1-3,fever,headache Last Admin: 08/05/24 15:41 Dose: 650 mg Documented By: EMERY Albuterol Sulfate (Albuterol Sulfate 90 Mcg 8 Gm Inhaler) 2 puff INHALE Q6H PRN PRN Reason: shortness of breath or wheezing Albuterol/Ipratropium (Albuterol/Iprat 2.5/0.5mg 3 Ml Ampul.Neb) 3 ml INHALE RQ4H WHILE AWAKE PRN PRN Reason: Shortness of Breath Last Admin: 08/05/24 06:05 Dose: 3 ml Documented By: MANOHAR Amlodipine Besylate (Amlodipine Besylate 5 Mg Tablet) 5 mg PO DAILY [facility]; Protocol Last Admin: 08/06/24 09:22 Dose: 5 mg Documented By: LUZ MARIA Aspirin (Aspirin Enteric Coated 81 Mg Tablet.) 81 mg PO DAILY [facility] Last Admin: 08/06/24 09:21 Dose: 81 mg Documented By: LUZ MARIA Atorvastatin Calcium (Atorvastatin Calcium 80 Mg Tablet) 80 mg PO DAILY [facility] Last Admin: 08/06/24 09:21 Dose: 80 mg Documented By: LUZ MARIA Baclofen (Baclofen 10 Mg Tablet) 10 mg PO QID [facility] Last Admin: 08/06/24 09:21 Dose: 10 mg Documented By: LUZ MARIA Calcium Carbonate (Calcium Carbonate 750 Mg Tab.Chew) 750 mg PO Q4H PRN PRN Reason: Heartburn Cyclobenzaprine HCl (Cyclobenzaprine Hcl 10 Mg Tablet) 10 mg PO BEDTIME PRN PRN Reason: for muscle spasm Last Admin: 08/03/24 22:26 Dose: 10 mg Documented By: ROVERTO Ezetimibe (Ezetimibe 10 Mg Tablet) 10 mg PO DAILY [facility] Last Admin: 08/06/24 09:22 Dose: 10 mg Documented By: LUZ MARIA Enoxaparin Sodium (Enoxaparin Sodium 40 Mg/0.4 Ml Syringe) 40 mg SUBCUT Q24H [facility] Last Admin: 08/05/24 20:11 Dose: 40 mg Documented By: ODRISDandre Fluticasone/Vilanterol (Fluticasone/Vilanterol 100/25 Blst.W.Dev) 1 puff INHALE RDAILY [facility] Last Admin: 08/05/24 11:41 Dose: 1 puff Documented By: SUSI Folic Acid (Folic Acid 1 Mg Tablet) 1 mg PO DAILY [facility] Last Admin: 08/06/24 09:22 Dose: 1 mg Documented By: LUZ MARIA Furosemide (Furosemide 20 Mg Tablet) 20 mg PO DAILY [facility]; Protocol Last Admin: 08/06/24 09:22 Dose: 20 mg Documented By: LUZ MARIA Hydromorphone HCl (Hydromorphone Hcl 1 Mg/Ml Syringe) 1 mg IVPUSH Q4H PRN; Protocol PRN Reason: Pain, Severe (Pain Scale 7-10) Last Admin: 08/04/24 23:48 Dose: 1 mg Documented By: ROVERTO Isosorbide Mononitrate (Isosorbide Mononitrate 30 Mg Tab.Er.24h) 30 mg PO DAILY [facility]; Protocol Last Admin: 08/06/24 09:21 Dose: 30 mg Documented By: LUZ MARIA Ketorolac Tromethamine (Ketorolac Tromethamine 15 Mg/Ml Vial) 15 mg IVPUSH Q6H PRN PRN Reason: Pain, Moderate(Pain Scale 4-6) Last Admin: 08/06/24 00:38 Dose: 15 mg Documented By: GALILEA Lidocaine (Lidocaine 4 % Patch Adh..Patch) 2 patch TRANSDERMA DAILY [facility]; Protocol Last Admin: 08/06/24 09:22 Dose: 2 patch Documented By: LUZ MARIA Magnesium Hydroxide (Milk Of Magnesia 30 Ml Oral.Susp) 30 ml PO DAILY PRN PRN Reason: Constipation Last Admin: 08/04/24 13:51 Dose: 30 ml Documented By: MARICEL Melatonin (Melatonin 3 Mg Tablet) 6 mg PO BEDTIME PRN PRN Reason: Insomnia Last Admin: 08/04/24 20:28 Dose: 6 mg Documented By: ROVERTO Metoprolol Succinate (Metoprolol Succinate Er 50 Mg Tab.Er.24h) 50 mg PO DAILY [facility]; Protocol Last Admin: 08/06/24 09:22 Dose: 50 mg Documented By: LUZ MARIA Omeprazole (Omeprazole 20 Mg Capsule.Dr) 20 mg PO BID@0630,1630 [facility] Last Admin: 08/06/24 06:02 Dose: 20 mg Documented By: GALILEA Ondansetron HCl (Ondansetron Hcl 4 Mg/2 Ml Vial) 4 mg IVPUSH Q4H PRN PRN Reason: Nausea and Vomiting Last Admin: 08/04/24 18:42 Dose: 4 mg Documented By: MARICEL Oxycodone HCl (Oxycodone Hcl Immed Release 5 Mg Tablet) 5 mg PO Q4H PRN PRN Reason: pain, moderate-severe Pharmacy Consult (Consult Rx Etoh Phenob Im/Po) 1 each MISCELLANE ONCE PRN; Protocol PRN Reason: Consult order Phenobarbital (Phenobarbital 15 Mg Tablet) 45 mg PO BID [facility]; Protocol Stop: 08/07/24 21:01 Last Admin: 08/06/24 09:22 Dose: 45 mg Documented By: LUZ MARIA Phenobarbital (Phenobarbital 30 Mg Tablet) 30 mg PO BID [facility]; Protocol Stop: 08/09/24 21:01 Phenobarbital (Phenobarbital 30 Mg Tablet) 30 mg PO DAILY [facility]; Protocol Stop: 08/11/24 09:01 Prednisone (Prednisone 20 Mg Tablet) 40 mg PO DAILY [facility] Last Admin: 08/06/24 09:21 Dose: 40 mg Documented By: LUZ MARIA Sodium Chloride (0.9 % Sodium Chloride Flush 3 Ml Syringe) 3 ml IVFLUSH QSHIFT [facility] Last Admin: 08/06/24 09:29 Dose: 3 ml Documented By: LUZ MARIA Thiamine HCl (Thiamine Hcl 100 Mg Tablet) 100 mg PO DAILY [facility] Last Admin: 08/06/24 09:22 Dose: 100 mg Documented By: LUZ MARIA Labs 08/06/24 08:22 08/06/24 08:22 Labs: Laboratory Results - last 24 hr 08/05/24 08/06/24 08/06/24 10:50 08:22 08:28 MCV 95.1 MCH 32.4 MCHC 34.1 RDW 14.6 Plt Count 142 L MPV 10.5 Absolute Nucleated RBC 0.000 Nucleated RBC % (auto) 0.0 VBG pH 7.46 H VBG pCO2 39 VBG pO2 62 VBG HCO3 28 H VBG O2 Saturation 90.0 VBG Base Excess 4.9 Anion Gap 12 Estim Creat Clear Calc 68.5 Estimated GFR > 60 Random Glucose 121 H Calcium 9.2 Magnesium 2.9 H Total Bilirubin 3.1 H AST 271 H ALT 220 H Alkaline Phosphatase 268 H Total Protein 6.8 Albumin 3.5 Influenza Type A (PCR) NEGATIVE Influenza Type B (PCR) NEGATIVE RSV RNA Qual (PCR) NEGATIVE SARS-CoV-2 RNA (RT-PCR) NEGATIVE Assessment and Plan (1) Compression fracture of body of thoracic vertebra: Status: Acute Plan d6 for 64yo M with ischemic CM, HFrEF, COPD, CAD s/p CABG + PCI, GERD, HTN, HLD, HTN admitted for intractable back pain due to acute/subacute T-spine fractures intractable back pain due to compression fractures with question of pathological fracture - CTA chest showed acute to subacute T5 compression fracture and subacute to chronic T7 compression fracture with sclerotic changes raising the possibility of underlying pathology/malignancy. There is also an acute to subacute nondisplaced T4 spinous process fracture. - Bone scan showed intense uptake involving T5 and T7, confirming acute/subacute nature of fractures. In review of the recent CT PA examination of the chest, both fractures appear acute/subacute, and there is diffuse sclerosis throughout the T5 vertebral body highly suspicious for pathological fracture. - RADHA + sFLCR normal; PSA normal; CA 19-9 + CEA pending; Oncology consulted; consider CT-guided biopsy of T5 lesion as outpt - prn oxycodone, prn IV ketorolac, prn IV hydromorphone; d/c cyclobenzaprine; continue baclofen + lidocaine patch - scheduled oxycodone PO, prn IV ketorolac and hydromorphone; scheduled baclofen + prn cyclobenzaprine; scheduled lidocaine patch asymptomatic choledocholithiasis with biliary duct dilation - low fat diet, GI consulted; likely stone will pass on its own; abd US without stones acute hypoxic respiratory failrue due to acute exacerbation of COPD - recheck flu/RSV/Covid PCR negative - start prednisone 08/05-, nebs - continue Breo AUD with withdrawal syndrome - started phenobarbital taper 08/05-; thiamine, folate; Addiction Medicine AUR - probably due to opioids; was able to urinate on own; conitnue to monitor ischemic CM chronic HFrEF - continue Imdur, metoprolol succinate, PO furosemide CAD - continue atorvastatin, metoprolol succinate, ASA, ezetimibe HTN - continue amlodipine, metoprolol succinate, furosemide GERD - PPI VTE ppx - enoxaparin dispo - plan home with PT eventually In my clinical judgment, the patient requires continued inpatient hospitalization for the following reasons: pain control, hypoxia, EtOH withdrawal Total time managing care of this patient today: 35 minutes. Quality Stroke Does the patient have a stroke diagnosis?: No VTE Prior VTE?: No VTE Risk Level:: Medical - moderate - high VTE Device Contraindication: Treatment Not Indicated VTE Drug Contraindication: N/A - Med Ordered
[2024-08-06] MEDS: Fluticasone/Vilanterol 100/25 BLST.W.DEV 1 PUFF INHALE (11:13)
[2024-08-06 11:17] VITALS: PULSE 102; RESP 18; O2SAT 96
[2024-08-06] MEDS: Sennosides/Docusate Sodium TABLET 2 TAB PO ×2 (11:36→20:49)
[2024-08-06] MEDS: Lactulose 20 GM/30 ML SOLUTION 30 GM PO (11:37)
[2024-08-06] MEDS: polyethylene glycoL 3350 17 GM POWD.PACK PO (11:38)
[2024-08-06 15:38] VITALS: BP 146/71; PULSE 95; RESP 16; TEMP 36.6; O2SAT 93
[2024-08-06 19:21] VITALS: BP 132/69; PULSE 89; RESP 18; TEMP 36.8; O2SAT 94
[2024-08-06] MEDS: Enoxaparin Sodium 40 MG/0.4 ML SYRINGE SUBCUT (20:48)
--- NOTE | 2024-08-06 21:30 | PC.NURSE ---
1950 Pt attempted to void and was not able to.pt bladder scanned for 667 cc. notified and ordered for a linder to be placed.#18 FR linder inserted and immediately drained 900 cc of carl colored urine.
[2024-08-06] MEDS: oxyCODONE HCl Immed Release 5 MG TABLET PO (23:58)
[2024-08-07] MEDS: HYDROmorphone HCl 1 MG/ML SYRINGE IVPUSH (00:52)
[2024-08-07 03:03] VITALS: BP 141/69; PULSE 78; RESP 18; TEMP 36.3; O2SAT 93
[2024-08-07] MEDS: Omeprazole 20 MG CAPSULE.DR PO ×2 (05:36→17:25)
[2024-08-07] MEDS: Ketorolac Tromethamine 15 MG/ML VIAL IVPUSH (05:40)
[2024-08-07 06:43] VITALS: BP 148/74; PULSE 77; RESP 16; TEMP 36.6; O2SAT 93
[2024-08-07] MEDS: Fluticasone/Vilanterol 100/25 BLST.W.DEV 1 PUFF INHALE (07:37)
[2024-08-07 07:38] VITALS: PULSE 88; RESP 18; O2SAT 91
[2024-08-07 08:54] VITALS: BP 142/67; PULSE 89; RESP 16; TEMP 36.7; O2SAT 93
[2024-08-07 09:59] LABS: Hematocrit 40.2 % (42.0-52.0); Hemoglobin 13.7 g/dl (14.0-18.0); Mean Corpuscular HGB Conc 34.1 g/dl (31.0-36.0); Mean Corpuscular Hemoglobin 32.2 pg (27.0-33.0); Mean Corpuscular Volume 94.6 fL (80.0-98.0); Mean Platelet Volume 11.2 fL (9.4-12.4); Platelet Count 136 X10*3/uL (160-400); Red Blood Count 4.25 X10*6/uL (4.60-5.80); Red Cell Distribution Width 14.2 % (11.0-16.0); White Blood Count 14.1 X10*3/uL (4.8-10.8)
[2024-08-07] MEDS: PHENobarbitaL 15 MG TABLET 45 MG PO ×2 (10:07→20:43)
[2024-08-07] MEDS: Aspirin Enteric Coated 81 MG TABLET.DR PO (10:07)
[2024-08-07] MEDS: Sennosides/Docusate Sodium TABLET 2 TAB PO ×2 (10:10→20:45)
[2024-08-07] MEDS: Thiamine HCL 100 MG TABLET PO (10:10)
[2024-08-07] MEDS: Atorvastatin Calcium 80 MG TABLET PO (10:11)
[2024-08-07] MEDS: Baclofen 10 MG TABLET PO ×4 (10:11→20:46)
[2024-08-07] MEDS: polyethylene glycoL 3350 17 GM POWD.PACK PO (10:11)
[2024-08-07] MEDS: Furosemide 20 MG TABLET PO (10:12)
[2024-08-07] MEDS: predniSONE 20 MG TABLET 40 MG PO (10:12)
[2024-08-07] MEDS: Ezetimibe 10 MG TABLET PO (10:13)
[2024-08-07] MEDS: Isosorbide Mononitrate 30 MG TAB.ER.24H PO (10:13)
[2024-08-07] MEDS: amLODIPine Besylate 5 MG TABLET PO (10:13)
[2024-08-07] MEDS: Metoprolol Succinate ER 50 MG TAB.ER.24H PO (10:13)
[2024-08-07] MEDS: Lidocaine 4 % Patch ADH..PATCH 2 PATCH TRANSDERMA (10:15)
[2024-08-07] MEDS: Folic Acid 1 MG TABLET PO (10:15)
[2024-08-07 10:16] LABS: Alanine Aminotransferase 165 U/L (0-40); Albumin Level 3.5 g/dL (3.5-5.0); Alkaline Phosphatase 289 U/L (39-117); Anion Gap 14 (12-20); Aspartate Amino Transferase 158 U/L (5-37); Bilirubin Direct 1.3 mg/dL (0.0-0.5); Bilirubin Total 1.8 mg/dL (0.0-1.0); Blood Urea Nitrogen 35 mg/dL (9-16); Carbon Dioxide 26 mmol/L (22-29); Chloride 94 mmol/L (96-108); Creatinine Clr Calc Pharmacy 64.5; Estimated Glomerular Filt Rate > 60; Glucose Random 194 mg/dL (60-115); Potassium 3.5 mmol/L (3.3-5.1); Sodium 130 mmol/L (135-145)
[2024-08-07] MEDS: 0.9 % Sodium Chloride Flush 3 ML SYRINGE IVFLUSH ×3 (10:17→20:47)
--- NOTE | 2024-08-07 11:35 | P.PNIM_ITS ---
Subjective Subjective Date of Service: 08/07/24 Interval History: back pain slightly improved tremor improved off O2 now; breathing OK Review of Systems Review of Systems: Yes all other systems are reviewed and are negative Physical Exam 2 Vital Signs: Vital Signs: Last Vital Signs Temp 98.1 F 08/07/24 08:54 Pulse 89 08/07/24 08:54 Resp 16 08/07/24 08:54 BP 142/67 H 08/07/24 08:54 Pulse Ox 93 08/07/24 08:54 O2 Del Method Room Air 08/07/24 08:54 O2 Flow Rate 2 08/06/24 06:53 BMI result Body Mass Index 27.9 Gen: in no acute distress HEENT: sclera anicteric, moist mucus membranes Neck: supple Lungs: diminished Heart: regular, no murmurs Abd: soft, non-tender, non-distended, no Claros sign Back: tender mid-T spine and left paraspinal musculature Ext: no edema Skin: warm/well-perfused Neuro: alert and oriented x3, no focal findings Psych: appropriate affect Objective Data Active Medications Acetaminophen (Acetaminophen 325 Mg Tablet) 650 mg PO Q6H PRN PRN Reason: Pain, Mild 1-3,fever,headache Last Admin: 08/05/24 15:41 Dose: 650 mg Documented By: EMERY Albuterol Sulfate (Albuterol Sulfate 90 Mcg 8 Gm Inhaler) 2 puff INHALE Q6H PRN PRN Reason: shortness of breath or wheezing Albuterol/Ipratropium (Albuterol/Iprat 2.5/0.5mg 3 Ml Ampul.Neb) 3 ml INHALE RQ4H WHILE AWAKE PRN PRN Reason: Shortness of Breath Last Admin: 08/05/24 06:05 Dose: 3 ml Documented By: MANOHAR Amlodipine Besylate (Amlodipine Besylate 5 Mg Tablet) 5 mg PO DAILY [facility]; Protocol Last Admin: 08/07/24 10:13 Dose: 5 mg Documented By: GEORGIE Aspirin (Aspirin Enteric Coated 81 Mg Tablet.) 81 mg PO DAILY [facility] Last Admin: 08/07/24 10:07 Dose: 81 mg Documented By: GEORGIE Atorvastatin Calcium (Atorvastatin Calcium 80 Mg Tablet) 80 mg PO DAILY [facility] Last Admin: 08/07/24 10:11 Dose: 80 mg Documented By: GEORGIE Baclofen (Baclofen 10 Mg Tablet) 10 mg PO QID [facility] Last Admin: 08/07/24 10:11 Dose: 10 mg Documented By: GEORGIE Calcium Carbonate (Calcium Carbonate 750 Mg Tab.Chew) 750 mg PO Q4H PRN PRN Reason: Heartburn Ezetimibe (Ezetimibe 10 Mg Tablet) 10 mg PO DAILY [facility] Last Admin: 08/07/24 10:13 Dose: 10 mg Documented By: GEORGIE Enoxaparin Sodium (Enoxaparin Sodium 40 Mg/0.4 Ml Syringe) 40 mg SUBCUT Q24H [facility] Last Admin: 08/06/24 20:48 Dose: 40 mg Documented By: GALILEA Fluticasone/Vilanterol (Fluticasone/Vilanterol / Blst.W.Dev) 1 puff INHALE RDAILY [facility] Last Admin: 08/07/24 07:37 Dose: 1 puff Documented By: JULIET Folic Acid (Folic Acid 1 Mg Tablet) 1 mg PO DAILY [facility] Last Admin: 08/07/24 10:15 Dose: 1 mg Documented By: GEORGIE Furosemide (Furosemide 20 Mg Tablet) 20 mg PO DAILY [facility]; Protocol Last Admin: 08/07/24 10:12 Dose: 20 mg Documented By: GEORGIE Hydromorphone HCl (Hydromorphone Hcl 1 Mg/Ml Syringe) 0.5 mg IVPUSH Q4H PRN; Protocol PRN Reason: Pain, Severe (Pain Scale 7-10) Isosorbide Mononitrate (Isosorbide Mononitrate 30 Mg Tab.Er.24h) 30 mg PO DAILY [facility]; Protocol Last Admin: 08/07/24 10:13 Dose: 30 mg Documented By: GEORGIE Ketorolac Tromethamine (Ketorolac Tromethamine 15 Mg/Ml Vial) 15 mg IVPUSH Q6H PRN PRN Reason: Pain, Moderate(Pain Scale 4-6) Last Admin: 08/07/24 05:40 Dose: 15 mg Documented By: GALILEA Lidocaine (Lidocaine 4 % Patch Adh..Patch) 2 patch TRANSDERMA DAILY [facility]; Protocol Last Admin: 08/07/24 10:15 Dose: 2 patch Documented By: GEORGIE Magnesium Hydroxide (Milk Of Magnesia 30 Ml Oral.Susp) 30 ml PO DAILY PRN PRN Reason: Constipation Last Admin: 08/04/24 13:51 Dose: 30 ml Documented By: MARICEL Melatonin (Melatonin 3 Mg Tablet) 6 mg PO BEDTIME PRN PRN Reason: Insomnia Last Admin: 08/07/24 00:00 Dose: 6 mg Documented By: GALILEA Metoprolol Succinate (Metoprolol Succinate Er 50 Mg Tab.Er.24h) 50 mg PO DAILY [facility]; Protocol Last Admin: 08/07/24 10:13 Dose: 50 mg Documented By: GEORGIE Omeprazole (Omeprazole 20 Mg Capsule.Dr) 20 mg PO BID@0630,1630 [facility] Last Admin: 08/07/24 05:36 Dose: 20 mg Documented By: GALILEA Ondansetron HCl (Ondansetron Hcl 4 Mg/2 Ml Vial) 4 mg IVPUSH Q4H PRN PRN Reason: Nausea and Vomiting Last Admin: 08/04/24 18:42 Dose: 4 mg Documented By: MARICEL Oxycodone HCl (Oxycodone Hcl Immed Release 5 Mg Tablet) 5 mg PO Q4H PRN PRN Reason: pain, moderate-severe Last Admin: 08/06/24 23:58 Dose: 5 mg Documented By: GALILEA Pharmacy Consult (Consult Rx Etoh Phenob Im/Po) 1 each MISCELLANE ONCE PRN; Protocol PRN Reason: Consult order Phenobarbital (Phenobarbital 15 Mg Tablet) 45 mg PO BID [facility]; Protocol Stop: 08/07/24 21:01 Last Admin: 08/07/24 10:07 Dose: 45 mg Documented By: GEORGIE Phenobarbital (Phenobarbital 30 Mg Tablet) 30 mg PO BID [facility]; Protocol Stop: 08/09/24 21:01 Phenobarbital (Phenobarbital 30 Mg Tablet) 30 mg PO DAILY [facility]; Protocol Stop: 08/11/24 09:01 Polyethylene Glycol (Polyethylene Glycol 3350 17 Gm Powd.Pack) 17 gm PO DAILY [facility] Last Admin: 08/07/24 10:11 Dose: 17 gm Documented By: GEORGIE Prednisone (Prednisone 20 Mg Tablet) 40 mg PO DAILY [facility] Last Admin: 08/07/24 10:12 Dose: 40 mg Documented By: GEORGIE Senna/Docusate Sodium (Sennosides/Docusate Sodium Tablet) 2 tab PO BID [facility] Last Admin: 08/07/24 10:10 Dose: 2 tab Documented By: GEORGIE Sodium Chloride (0.9 % Sodium Chloride Flush 3 Ml Syringe) 3 ml IVFLUSH QSHIFT [facility] Last Admin: 08/07/24 10:17 Dose: 3 ml Documented By: GEORGIE Thiamine HCl (Thiamine Hcl 100 Mg Tablet) 100 mg PO DAILY [facility] Last Admin: 08/07/24 10:10 Dose: 100 mg Documented By: GEORGIE Labs 08/07/24 09:29 08/07/24 09:29 Labs: Laboratory Results - last 24 hr 08/07/24 09:29 MCV 94.6 MCH 32.2 MCHC 34.1 RDW 14.2 Plt Count 136 L MPV 11.2 Absolute Nucleated RBC 0.000 Nucleated RBC % (auto) 0.0 Anion Gap 14 Estim Creat Clear Calc 64.5 Estimated GFR > 60 Random Glucose 194 H Calcium 9.0 Total Bilirubin 1.8 H Direct Bilirubin 1.3 H AST 158 H ALT 165 H Alkaline Phosphatase 289 H Total Protein 7.0 Albumin 3.5 Assessment and Plan (1) Compression fracture of body of thoracic vertebra: Status: Acute Plan d7 for 64yo M with ischemic CM, HFrEF, COPD, CAD s/p CABG + PCI, GERD, HTN, HLD, HTN admitted for intractable back pain due to acute/subacute T-spine fractures intractable back pain due to compression fractures with question of pathological fracture - CTA chest: acute to subacute T5 compression fracture and subacute to chronic T7 compression fracture with sclerotic changes raising the possibility of underlying pathology/malignancy. There is also an acute to subacute nondisplaced T4 spinous process fracture. - Bone scan: intense uptake involving T5 and T7, confirming acute/subacute nature of fractures. In review of the recent CT PA examination of the chest, both fractures appear acute/subacute, and there is diffuse sclerosis throughout the T5 vertebral body highly suspicious for pathological fracture. - RADHA + sFLCR normal; PSA normal; CA 19-9 + CEA pending; Oncology consulted and will need to f/u with them and get CT-guided biopsy of T5 lesion as outpt - prn oxycodone, ketorolac, IV hydromorphone; continue baclofen + lidocaine patch asymptomatic choledocholithiasis with biliary duct dilation - low fat diet, GI consulted; likely stone will pass on its own; abd US without stones - LFTs up yesterday but improved today; perhaps passing stone; abd completely soft and tolerating diet acute hypoxic respiratory failure due to acute exacerbation of COPD - recheck flu/RSV/Covid PCR negative - prednisone 08/05-08/10, nebs - continue Breo AUD with withdrawal syndrome - started phenobarbital taper 08/05-; thiamine, folate; Addiction Medicine AUR - probably due to opioids but now has Aggarwal; Urology consultation ischemic CM chronic HFrEF - continue Imdur, metoprolol succinate, PO furosemide CAD - continue atorvastatin, metoprolol succinate, ASA, ezetimibe HTN - continue amlodipine, metoprolol succinate, furosemide GERD - PPI VTE ppx - enoxaparin dispo - plan home with PT eventually In my clinical judgment, the patient requires continued inpatient hospitalization for the following reasons: pain control, EtOH withdrawal Total time managing care of this patient today: 35 minutes. Quality Stroke Does the patient have a stroke diagnosis?: No VTE Prior VTE?: No VTE Risk Level:: Medical - moderate - high VTE Device Contraindication: Treatment Not Indicated VTE Drug Contraindication: N/A - Med Ordered
[2024-08-07] MEDS: oxyCODONE HCl Immed Release 5 MG TABLET PO ×3 (12:57→23:06)
[2024-08-07 15:16] VITALS: BP 123/70; PULSE 87; RESP 18; TEMP 36.1; O2SAT 93
--- NOTE | 2024-08-07 16:03 | PM.UROCN ---
History of Present Illness Consult details Consult date: 08/07/24 Narrative: CC: Urinary retention 64-year-old male Admission for severe back pain proximally week ago Background of ischemic cardiac disease, COPD, CABG plus PCI, GERD, hypertension Pain reported at 02/17 with exacerbation through breathing, movement, palpitation. Elevated liver enzymes and alk-phos. Imaging showed subacute T5 and T7 compression fractions with sclerotic changes. PSA 0.21 Plan for outpatient T5 biopsy Difficulty voiding. Initial straight catheterization. Aggarwal catheter placed 08/06 with 900 cc output. Patient does describe constipation at initial admission. Not on prostate medications at admission. Given volume at time of catheterization Aggarwal catheter will need to remain for minimum 2 weeks. We will start alpha-angel and finasteride. Should use catheter cap to empty bladder every 3-4 hours during the day and large 2 L overnight bag in the evening. Review of Systems Constitutional: Constitutional: Reports as per HPI and Reports no additional constitutional complaints Cardiovascular: Cardiovascular: Reports as per HPI and Reports no additional cardiovascular complaints Respiratory: Respiratory: Reports as per HPI and Reports no additional respiratory complaints Gastrointestinal: Gastrointestinal: Reports as per HPI and Reports no additional gastrointestinal complaints Genitourinary: Genitourinary: Reports as per HPI Musculoskeletal: Musculoskeletal: Reports no additional musculoskeletal complaints and Reports as per HPI Neurologic: Reports system reviewed and no additional complaints, except as documented and Reports as per HPI [facility] Past Medical History Medical History Colon cancer screening Obesity (BMI 30-39.9) Tobacco abuse Heart failure with reduced ejection fraction Adult general medical exam Screening for prostate cancer Ischemic cardiomyopathy Colonoscopy refused Umbilical hernia COPD (chronic obstructive pulmonary disease) Coronary artery disease GERD (gastroesophageal reflux disease) Hypercholesterolemia Insomnia Hypertension Family History Family History Father No problems noted. Mother No problems noted. Sister No problems noted. Sister No problems noted. Brother No problems noted. Brother Myocardial infarct Liver cancer Surgical History Surgical History Hx of CABG Social History Social History Household Members: Family Household Members Other:: brother Housing: House Do you presently have visiting nurse or other home services: No Alcohol intake: current Alcohol intake frequency: 3 or more drinks per day Alcohol type: beer Patient Tobacco Use Status: Former Tobacco user Tobacco use type: Cigarette e-Cigarette/Vaping Use: Never Used Second Hand Smoke Exposure: No Substance Use Type: Marijuana Advance Directives Date on File: 01/07/23 service: No Current occupational status: disabled Cognitive needs: No Hearing needs: No Vision needs: Yes Meds Allergies Allergy/AdvReac Type Severity Reaction Status Date / Time ARB-Angiotensin Receptor AdvReac Severe [place] Verified 08/01/24 11:10 Antagonist MALVIN Inhibitors AdvReac Intermediate [place] Verified 08/01/24 11:10 Active Medications: Current Medications Acetaminophen (Acetaminophen 325 Mg Tablet) 650 mg PO Q6H PRN PRN Reason: Pain, Mild 1-3,fever,headache Last Admin: 08/05/24 15:41 Dose: 650 mg Albuterol Sulfate (Albuterol Sulfate 90 Mcg 8 Gm Inhaler) 2 puff INHALE Q6H PRN PRN Reason: shortness of breath or wheezing Albuterol/Ipratropium (Albuterol/Iprat 2.5/0.5mg 3 Ml Ampul.Neb) 3 ml INHALE RQ4H WHILE AWAKE PRN PRN Reason: Shortness of Breath Last Admin: 08/05/24 06:05 Dose: 3 ml Amlodipine Besylate (Amlodipine Besylate 5 Mg Tablet) 5 mg PO DAILY [facility]; Protocol Last Admin: 08/07/24 10:13 Dose: 5 mg Aspirin (Aspirin Enteric Coated 81 Mg Tablet.Dr) 81 mg PO DAILY [facility] Last Admin: 08/07/24 10:07 Dose: 81 mg Atorvastatin Calcium (Atorvastatin Calcium 80 Mg Tablet) 80 mg PO DAILY [facility] Last Admin: 08/07/24 10:11 Dose: 80 mg Baclofen (Baclofen 10 Mg Tablet) 10 mg PO QID [facility] Last Admin: 08/07/24 12:56 Dose: 10 mg Calcium Carbonate (Calcium Carbonate 750 Mg Tab.Chew) 750 mg PO Q4H PRN PRN Reason: Heartburn Ezetimibe (Ezetimibe 10 Mg Tablet) 10 mg PO DAILY [facility] Last Admin: 08/07/24 10:13 Dose: 10 mg Enoxaparin Sodium (Enoxaparin Sodium 40 Mg/0.4 Ml Syringe) 40 mg SUBCUT Q24H [facility] Last Admin: 08/06/24 20:48 Dose: 40 mg Fluticasone/Vilanterol (Fluticasone/Vilanterol 100/25 Blst.W.Dev) 1 puff INHALE RDAILY [facility] Last Admin: 08/07/24 07:37 Dose: 1 puff Folic Acid (Folic Acid 1 Mg Tablet) 1 mg PO DAILY [facility] Last Admin: 08/07/24 10:15 Dose: 1 mg Furosemide (Furosemide 20 Mg Tablet) 20 mg PO DAILY [facility]; Protocol Last Admin: 08/07/24 10:12 Dose: 20 mg Hydromorphone HCl (Hydromorphone Hcl 1 Mg/Ml Syringe) 0.5 mg IVPUSH Q4H PRN; Protocol PRN Reason: Pain, Severe (Pain Scale 7-10) Isosorbide Mononitrate (Isosorbide Mononitrate 30 Mg Tab.Er.24h) 30 mg PO DAILY [facility]; Protocol Last Admin: 08/07/24 10:13 Dose: 30 mg Ketorolac Tromethamine (Ketorolac Tromethamine 15 Mg/Ml Vial) 15 mg IVPUSH Q6H PRN PRN Reason: Pain, Moderate(Pain Scale 4-6) Last Admin: 08/07/24 05:40 Dose: 15 mg Lidocaine (Lidocaine 4 % Patch Adh..Patch) 2 patch TRANSDERMA DAILY [facility]; Protocol Last Admin: 08/07/24 10:15 Dose: 2 patch Magnesium Hydroxide (Milk Of Magnesia 30 Ml Oral.Susp) 30 ml PO DAILY PRN PRN Reason: Constipation Last Admin: 08/04/24 13:51 Dose: 30 ml Melatonin (Melatonin 3 Mg Tablet) 6 mg PO BEDTIME PRN PRN Reason: Insomnia Last Admin: 08/07/24 00:00 Dose: 6 mg Metoprolol Succinate (Metoprolol Succinate Er 50 Mg Tab.Er.24h) 50 mg PO DAILY [facility]; Protocol Last Admin: 08/07/24 10:13 Dose: 50 mg Omeprazole (Omeprazole 20 Mg Capsule.Dr) 20 mg PO BID@0630,1630 [facility] Last Admin: 08/07/24 05:36 Dose: 20 mg Ondansetron HCl (Ondansetron Hcl 4 Mg/2 Ml Vial) 4 mg IVPUSH Q4H PRN PRN Reason: Nausea and Vomiting Last Admin: 08/04/24 18:42 Dose: 4 mg Oxycodone HCl (Oxycodone Hcl Immed Release 5 Mg Tablet) 5 mg PO Q4H PRN PRN Reason: pain, moderate-severe Last Admin: 08/07/24 12:57 Dose: 5 mg Pharmacy Consult (Consult Rx Etoh Phenob Im/Po) 1 each MISCELLANE ONCE PRN; Protocol PRN Reason: Consult order Phenobarbital (Phenobarbital 15 Mg Tablet) 45 mg PO BID [facility]; Protocol Stop: 08/07/24 21:01 Last Admin: 08/07/24 10:07 Dose: 45 mg Phenobarbital (Phenobarbital 30 Mg Tablet) 30 mg PO BID [facility]; Protocol Stop: 08/09/24 21:01 Phenobarbital (Phenobarbital 30 Mg Tablet) 30 mg PO DAILY [facility]; Protocol Stop: 08/11/24 09:01 Polyethylene Glycol (Polyethylene Glycol 3350 17 Gm Powd.Pack) 17 gm PO DAILY [facility] Last Admin: 08/07/24 10:11 Dose: 17 gm Prednisone (Prednisone 20 Mg Tablet) 40 mg PO DAILY [facility] Stop: 08/10/24 08:59 Last Admin: 08/07/24 10:12 Dose: 40 mg Senna/Docusate Sodium (Sennosides/Docusate Sodium Tablet) 2 tab PO BID [facility] Last Admin: 08/07/24 10:10 Dose: 2 tab Sodium Chloride (0.9 % Sodium Chloride Flush 3 Ml Syringe) 3 ml IVFLUSH QSHIFT [facility] Last Admin: 08/07/24 10:17 Dose: 3 ml Thiamine HCl (Thiamine Hcl 100 Mg Tablet) 100 mg PO DAILY [facility] Last Admin: 08/07/24 10:10 Dose: 100 mg Home Medications ?Medication ?Instructions ?Recorded ?Confirmed ?Last Taken ?Type aspirin 81 mg tablet,delayed 81 mg PO DAILY 09/10/21 08/01/24 08/01/24 History release melatonin 10 mg tablet 10 mg PO BEDTIME 08/01/24 08/01/24 Unknown History Physical Exam Vital Signs: Vital Signs: Last Vital Signs Temp 96.9 F 08/07/24 15:16 Pulse 87 08/07/24 15:16 Resp 18 08/07/24 15:16 BP 123/70 08/07/24 15:16 Pulse Ox 93 08/07/24 15:16 O2 Del Method Room Air 08/07/24 15:16 O2 Flow Rate 2 08/06/24 06:53 BMI result Body Mass Index 27.9 Const: General: cooperative, healthy appearing, comfortable and no acute distress Orientation/consciousness: patient oriented x3 HEENT: Face and sinus: Yes normal facial exam Mouth: moist mucous membranes Neck: Neck: Yes normal visual inspection, Yes full ROM and Yes trachea midline Chest: Chest palpation & inspection: normal inspection of the chest Resp: Effort & Inspection: normal respiratory effort, able to speak in complete sentences and no respiratory distress GI: Inspection: Yes normal to inspection Back/Spine/Pelvis: Cervical Spine: normal cervical lordosis Thoracic/Lumbar Spine: thoracic and lumbar spine normal to inspection Skin: General skin exam: no rashes or lesions noted Neuro: General: patient oriented x3, tone normal and moves all extremities Extrem: General: Yes normal to inspection and Yes capillary refill normal Results Labs 08/07/24 09:29 08/07/24 09:29 Labs: Abnormal lab results 08/07/24 Range/Units 09:29 WBC 14.1 H (4.8-10.8) X10*3/uL RBC 4.25 L (4.60-5.80) X10*6/uL Hgb 13.7 L (14.0-18.0) g/dl Hct 40.2 L (42.0-52.0) % Plt Count 136 L (160-400) X10*3/uL Sodium 130 L (135-145) mmol/L Chloride 94 L (96-108) mmol/L BUN 35 H (9-16) mg/dL Random Glucose 194 H (60-115) mg/dL Total Bilirubin 1.8 H (0.0-1.0) mg/dL Direct Bilirubin 1.3 H (0.0-0.5) mg/dL AST 158 H (5-37) U/L ALT 165 H (0-40) U/L Alkaline Phosphatase 289 H (39-117) U/L Short CBC 08/07/24 Range/Units 09:29 WBC 14.1 H (4.8-10.8) X10*3/uL Hgb 13.7 L (14.0-18.0) g/dl Hct 40.2 L (42.0-52.0) % Plt Count 136 L (160-400) X10*3/uL BMP 08/07/24 09:29 Sodium 130 L Potassium 3.5 Chloride 94 L Carbon Dioxide 26 BUN 35 H Creatinine 1.20 Calcium 9.0 Liver Function 08/07/24 Range/Units 09:29 Total Bilirubin 1.8 H (0.0-1.0) mg/dL Direct Bilirubin 1.3 H (0.0-0.5) mg/dL AST 158 H (5-37) U/L ALT 165 H (0-40) U/L Alkaline Phosphatase 289 H (39-117) U/L Albumin 3.5 (3.5-5.0) g/dL All other labs normal. Assessment and Plan (1) Acute urinary retention: Status: Acute Plan Start tamsulosin Start finasteride Use blue catheter cap during day to empty bladder every 3-4 hours and large overnight bag in the evening. Two week follow-up urology voiding trial Procedures Date of Service Date of Service: 08/07/24
[2024-08-07] MEDS: Finasteride 5 MG TABLET PO (17:25)
[2024-08-07 19:59] VITALS: BP 136/67; PULSE 81; RESP 18; TEMP 36.6; O2SAT 95
[2024-08-07] MEDS: Enoxaparin Sodium 40 MG/0.4 ML SYRINGE SUBCUT (20:48)
[2024-08-07] MEDS: Tamsulosin HCL 0.4 MG CAPSULE PO (21:51)
[2024-08-07] MEDS: Melatonin 3 MG TABLET 6 MG PO ×2 (23:08)
[2024-08-08] VITALS (8 sets, daily range): BP systolic 130–169; BP diastolic 58–85; PULSE 73–96; RESP 16–20; TEMP 36.1–36.8; O2SAT 91–96
[2024-08-08] MEDS: HYDROmorphone HCl 1 MG/ML SYRINGE 0.5 MG IVPUSH (00:35)
[2024-08-08] MEDS: Omeprazole 20 MG CAPSULE.DR PO ×2 (06:03→16:07)
[2024-08-08] MEDS: oxyCODONE HCl Immed Release 5 MG TABLET PO ×4 (06:11→21:21)
[2024-08-08 06:51] LABS: Hematocrit 39.6 % (42.0-52.0); Hemoglobin 13.5 g/dl (14.0-18.0); Mean Corpuscular HGB Conc 34.1 g/dl (31.0-36.0); Mean Corpuscular Volume 93.8 fL (80.0-98.0); Mean Platelet Volume 11.2 fL (9.4-12.4); PLT CLUMP 1; Red Blood Count 4.22 X10*6/uL (4.60-5.80); Red Cell Distribution Width 14.1 % (11.0-16.0)
[2024-08-08 06:52] LABS: Platelet Count 138 X10*3/uL (160-400); White Blood Count 10.6 X10*3/uL (4.8-10.8)
[2024-08-08 07:05] LABS: Alanine Aminotransferase 150 U/L (0-40); Albumin Level 3.5 g/dL (3.5-5.0); Alkaline Phosphatase 284 U/L (39-117); Anion Gap 13 (12-20); Aspartate Amino Transferase 133 U/L (5-37); Bilirubin Total 1.4 mg/dL (0.0-1.0); Blood Urea Nitrogen 29 mg/dL (9-16); Calcium 9.3 mg/dL (8.4-10.2); Carbon Dioxide 30 mmol/L (22-29); Chloride 98 mmol/L (96-108); Creatinine Clr Calc Pharmacy 68.5; Estimated Glomerular Filt Rate > 60; Glucose Random 128 mg/dL (60-115); Potassium 3.8 mmol/L (3.3-5.1); Sodium 137 mmol/L (135-145); Total Protein 7.2 g/dL (6.5-8.0)
[2024-08-08 07:10] LABS: INTERNATIONAL NORM RATIO 0.9 (0.9-1.1); Prothrombin Time 10.8 SEC (10.9-12.4)
[2024-08-08] MEDS: Fluticasone/Vilanterol 100/25 BLST.W.DEV 1 PUFF INHALE (07:52)
[2024-08-08] MEDS: predniSONE 20 MG TABLET 40 MG PO (09:05)
[2024-08-08] MEDS: Isosorbide Mononitrate 30 MG TAB.ER.24H PO (09:05)
[2024-08-08] MEDS: Atorvastatin Calcium 80 MG TABLET PO (09:05)
[2024-08-08] MEDS: Baclofen 10 MG TABLET PO ×4 (09:05→20:28)
[2024-08-08] MEDS: Furosemide 20 MG TABLET PO (09:05)
[2024-08-08] MEDS: Thiamine HCL 100 MG TABLET PO (09:05)
[2024-08-08] MEDS: Metoprolol Succinate ER 50 MG TAB.ER.24H PO (09:05)
[2024-08-08] MEDS: amLODIPine Besylate 5 MG TABLET PO (09:05)
[2024-08-08] MEDS: Folic Acid 1 MG TABLET PO (09:06)
[2024-08-08] MEDS: polyethylene glycoL 3350 17 GM POWD.PACK PO (09:06)
[2024-08-08] MEDS: Lidocaine 4 % Patch ADH..PATCH 2 PATCH TRANSDERMA (09:06)
[2024-08-08] MEDS: Sennosides/Docusate Sodium TABLET 2 TAB PO ×2 (09:06→20:28)
[2024-08-08] MEDS: 0.9 % Sodium Chloride Flush 3 ML SYRINGE IVFLUSH ×3 (09:06→20:31)
[2024-08-08] MEDS: PHENobarbitaL 30 MG TABLET PO ×2 (09:06→20:28)
[2024-08-08] MEDS: Finasteride 5 MG TABLET PO (09:06)
[2024-08-08] MEDS: Aspirin Enteric Coated 81 MG TABLET.DR PO (09:06)
[2024-08-08] MEDS: Ezetimibe 10 MG TABLET PO (09:06)
--- NOTE | 2024-08-08 13:14 | HO.PM.IMPN ---
Subjective Subjective Date of Service: 08/08/24 Interval History: No acute issues overnight. Pain control adequate Review of Systems Denies chest pain Denies shortness of breath Denies nausea vomiting diarrhea Denies fever chills Physical Exam Vital Signs: Vital Signs: Last Vital Signs Temp 98.1 F 08/08/24 11:51 Pulse 93 08/08/24 11:51 Resp 18 08/08/24 11:51 BP 130/67 08/08/24 11:51 Pulse Ox 94 08/08/24 11:51 O2 Del Method Room Air 08/08/24 11:51 O2 Flow Rate 2 08/06/24 06:53 BMI result Body Mass Index 27.9 Const: Other: Awake alert no acute distress Resp: Other: Clear to auscultation bilaterally no rales rhonchi or wheezes Cardio: Other: No S4; positive S1-S2; no S3 murmurs rubs or gallops GI: Other: Soft nontender nondistended normoactive bowel sounds Extrem: Other: No edema bilaterally Objective Data Active Medications Acetaminophen (Acetaminophen 325 Mg Tablet) 650 mg PO Q6H PRN PRN Reason: Pain, Mild 1-3,fever,headache Last Admin: 08/05/24 15:41 Dose: 650 mg Documented By: EMERY Albuterol Sulfate (Albuterol Sulfate 90 Mcg 8 Gm Inhaler) 2 puff INHALE Q6H PRN PRN Reason: shortness of breath or wheezing Albuterol/Ipratropium (Albuterol/Iprat 2.5/0.5mg 3 Ml Ampul.Neb) 3 ml INHALE RQ4H WHILE AWAKE PRN PRN Reason: Shortness of Breath Last Admin: 08/05/24 06:05 Dose: 3 ml Documented By: MANOHAR Amlodipine Besylate (Amlodipine Besylate 5 Mg Tablet) 5 mg PO DAILY [facility]; Protocol Last Admin: 08/08/24 09:05 Dose: 5 mg Documented By: ESME Aspirin (Aspirin Enteric Coated 81 Mg Tablet.) 81 mg PO DAILY [facility] Last Admin: 08/08/24 09:06 Dose: 81 mg Documented By: ESME Atorvastatin Calcium (Atorvastatin Calcium 80 Mg Tablet) 80 mg PO DAILY [facility] Last Admin: 08/08/24 09:05 Dose: 80 mg Documented By: ESME Baclofen (Baclofen 10 Mg Tablet) 10 mg PO QID [facility] Last Admin: 08/08/24 12:06 Dose: 10 mg Documented By: ANTOINE Calcium Carbonate (Calcium Carbonate 750 Mg Tab.Chew) 750 mg PO Q4H PRN PRN Reason: Heartburn Ezetimibe (Ezetimibe 10 Mg Tablet) 10 mg PO DAILY [facility] Last Admin: 08/08/24 09:06 Dose: 10 mg Documented By: ESME Enoxaparin Sodium (Enoxaparin Sodium 40 Mg/0.4 Ml Syringe) 40 mg SUBCUT Q24H [facility] Last Admin: 08/07/24 20:48 Dose: 40 mg Documented By: WALDO Finasteride (Finasteride 5 Mg Tablet) 5 mg PO DAILY [facility] Last Admin: 08/08/24 09:06 Dose: 5 mg Documented By: ESME Fluticasone/Vilanterol (Fluticasone/Vilanterol 100/25 Blst.W.Dev) 1 puff INHALE RDAILY [facility] Last Admin: 08/08/24 07:52 Dose: 1 puff Documented By: DEEPIKA Folic Acid (Folic Acid 1 Mg Tablet) 1 mg PO DAILY [facility] Last Admin: 08/08/24 09:06 Dose: 1 mg Documented By: ESME Furosemide (Furosemide 20 Mg Tablet) 20 mg PO DAILY [facility]; Protocol Last Admin: 08/08/24 09:05 Dose: 20 mg Documented By: ESME Hydromorphone HCl (Hydromorphone Hcl 1 Mg/Ml Syringe) 0.5 mg IVPUSH Q4H PRN; Protocol PRN Reason: Pain, Severe (Pain Scale 7-10) Last Admin: 08/08/24 00:35 Dose: 0.5 mg Documented By: WALDO Isosorbide Mononitrate (Isosorbide Mononitrate 30 Mg Tab.Er.24h) 30 mg PO DAILY [facility]; Protocol Last Admin: 08/08/24 09:05 Dose: 30 mg Documented By: ESME Ketorolac Tromethamine (Ketorolac Tromethamine 15 Mg/Ml Vial) 15 mg IVPUSH Q6H PRN PRN Reason: Pain, Moderate(Pain Scale 4-6) Last Admin: 08/07/24 05:40 Dose: 15 mg Documented By: GALILEA Lidocaine (Lidocaine 4 % Patch Adh..Patch) 2 patch TRANSDERMA DAILY [facility]; Protocol Last Admin: 08/08/24 09:06 Dose: 2 patch Documented By: ESME Magnesium Hydroxide (Milk Of Magnesia 30 Ml Oral.Susp) 30 ml PO DAILY PRN PRN Reason: Constipation Last Admin: 08/04/24 13:51 Dose: 30 ml Documented By: MARICEL Melatonin (Melatonin 3 Mg Tablet) 6 mg PO BEDTIME PRN PRN Reason: Insomnia Last Admin: 08/07/24 23:08 Dose: 6 mg Documented By: WALDO Metoprolol Succinate (Metoprolol Succinate Er 50 Mg Tab.Er.24h) 50 mg PO DAILY [facility]; Protocol Last Admin: 08/08/24 09:05 Dose: 50 mg Documented By: ESME Omeprazole (Omeprazole 20 Mg Capsule.Dr) 20 mg PO BID@0630,1630 [facility] Last Admin: 08/08/24 06:03 Dose: 20 mg Documented By: WALDO Ondansetron HCl (Ondansetron Hcl 4 Mg/2 Ml Vial) 4 mg IVPUSH Q4H PRN PRN Reason: Nausea and Vomiting Last Admin: 08/04/24 18:42 Dose: 4 mg Documented By: MARICEL Oxycodone HCl (Oxycodone Hcl Immed Release 5 Mg Tablet) 5 mg PO Q4H PRN PRN Reason: pain, moderate-severe Last Admin: 08/08/24 12:06 Dose: 5 mg Documented By: ANTOINE Pharmacy Consult (Consult Rx Etoh Phenob Im/Po) 1 each MISCELLANE ONCE PRN; Protocol PRN Reason: Consult order Phenobarbital (Phenobarbital 30 Mg Tablet) 30 mg PO BID [facility]; Protocol Stop: 08/09/24 21:01 Last Admin: 08/08/24 09:06 Dose: 30 mg Documented By: ESME Phenobarbital (Phenobarbital 30 Mg Tablet) 30 mg PO DAILY [facility]; Protocol Stop: 08/11/24 09:01 Polyethylene Glycol (Polyethylene Glycol 3350 17 Gm Powd.Pack) 17 gm PO DAILY [facility] Last Admin: 08/08/24 09:06 Dose: 17 gm Documented By: ESME Prednisone (Prednisone 20 Mg Tablet) 40 mg PO DAILY [facility] Stop: 08/10/24 08:59 Last Admin: 08/08/24 09:05 Dose: 40 mg Documented By: ESME Senna/Docusate Sodium (Sennosides/Docusate Sodium Tablet) 2 tab PO BID [facility] Last Admin: 08/08/24 09:06 Dose: 2 tab Documented By: ESME Sodium Chloride (0.9 % Sodium Chloride Flush 3 Ml Syringe) 3 ml IVFLUSH QSHIFT [facility] Last Admin: 08/08/24 09:06 Dose: 3 ml Documented By: ESME Tamsulosin HCl (Tamsulosin Hcl 0.4 Mg Capsule) 0.4 mg PO BEDTIME [facility] Last Admin: 08/07/24 21:51 Dose: 0.4 mg Documented By: WALDO Thiamine HCl (Thiamine Hcl 100 Mg Tablet) 100 mg PO DAILY [facility] Last Admin: 08/08/24 09:05 Dose: 100 mg Documented By: ESME Labs 08/08/24 05:54 08/08/24 05:54 Labs: Laboratory Results - last 24 hr 08/08/24 05:54 MCV 93.8 MCH 32.0 MCHC 34.1 RDW 14.1 Plt Count 138 L MPV 11.2 Absolute Nucleated RBC 0.000 Nucleated RBC % (auto) 0.0 PT 10.8 L INR 0.9 Anion Gap 13 Estim Creat Clear Calc 68.5 Estimated GFR > 60 Random Glucose 128 H Calcium 9.3 Total Bilirubin 1.4 H AST 133 H ALT 150 H Alkaline Phosphatase 284 H Total Protein 7.2 Albumin 3.5 Assessment and Plan (1) Compression fracture of body of thoracic vertebra: Status: Acute (2) Choledocholithiasis: Status: Acute (3) Acute urinary retention: Status: Acute Plan 64yo M with ischemic CM, HFrEF, COPD, CAD s/p CABG + PCI, GERD, HTN, HLD, HTN admitted for intractable back pain due to acute/subacute T-spine fractures 1.Intractable back pain due to compression fractures with question of pathological fracture - CTA chest: acute to subacute T5 compression fracture and subacute to chronic T7 compression fracture with sclerotic changes raising the possibility of underlying pathology/malignancy. There is also an acute to subacute nondisplaced T4 spinous process fracture. - Bone scan: intense uptake involving T5 and T7, confirming acute/subacute nature of fractures. In review of the recent CT PA examination of the chest, both fractures appear acute/subacute, and there is diffuse sclerosis throughout the T5 vertebral body highly suspicious for pathological fracture. - RADHA + sFLCR normal; PSA normal; CA 19-9 + CEA pending; Oncology consulted pending CT-guided biopsy of T5 lesion as outpt - prn oxycodone, ketorolac, IV hydromorphone; continue baclofen + lidocaine patch 2.Asymptomatic choledocholithiasis with biliary duct dilation - LFTs trending down...follow daily -pain improved 3.Acute hypoxic respiratory failure due to acute exacerbation of COPD -sats acceptable on room air - prednisone 08/05-08/10....nebs as ordered - continue Breo 4.AUD with withdrawal syndrome - started phenobarbital taper 08/05-; thiamine, folate; Addiction Medicine -[facility]WA as ordered 5. Acute urinary retention -continue capping as per Urology consultation -will be DC with Alessia in 2 week follow up with Urology 6.Ischemic CM/chronic HFrEF -stable and well compensated - continue Imdur, metoprolol succinate, PO furosemide 7.HTN -acceptable control on current therapies - continue amlodipine, metoprolol succinate, furosemide -adjust as indicated Enoxaparin Full code In my clinical judgment, the patient requires continued inpatient hospitalization for the following reasons: pain control, EtOH withdrawal Quality Stroke Does the patient have a stroke diagnosis?: No VTE Prior VTE?: No VTE Risk Level:: Medical - moderate - high VTE Device Contraindication: Treatment Not Indicated VTE Drug Contraindication: N/A - Med Ordered
--- NOTE | 2024-08-08 15:24 | MHC.CM.PN ---
per rounds pt not medically stable for dc plan remains home
[2024-08-08 16:28] LABS: Kappa, Serum 324 mg/dL (176-443); Kappa/Lambda Ratio, Serum 1.64 (1.29-2.55); Lambda, Serum 198 mg/dL (91-240)
[2024-08-08] MEDS: Enoxaparin Sodium 40 MG/0.4 ML SYRINGE SUBCUT (19:54)
[2024-08-08] MEDS: Tamsulosin HCL 0.4 MG CAPSULE PO (20:28)
[2024-08-08] MEDS: Melatonin 3 MG TABLET 6 MG PO (22:56)
[2024-08-09] VITALS (7 sets, daily range): BP systolic 118–150; BP diastolic 65–73; PULSE 70–92; RESP 16–20; TEMP 36.6–36.8; O2SAT 93–97
[2024-08-09] MEDS: oxyCODONE HCl Immed Release 5 MG TABLET PO ×2 (03:26→09:09)
[2024-08-09] MEDS: Omeprazole 20 MG CAPSULE.DR PO ×2 (05:46→16:19)
[2024-08-09 06:58] LABS: MANUAL DIFF FLAG NO
[2024-08-09 07:02] LABS: Basophils Percent Auto 0.3 % (0-2); Eosinophils Percent Auto 0.2 % (0-4); Hematocrit 42.4 % (42.0-52.0); Hemoglobin 14.3 g/dl (14.0-18.0); Imm Gran Abs Auto 0.07 X10*3/uL (0.00-0.03); Imm Gran Pct Auto 0.6 % (0.0-0.4); Lymphocytes Absolute Auto 1.6 X10*3/uL (1.2-4.9); Lymphocytes Percent Auto 14.3 % (20-40); Mean Corpuscular HGB Conc 33.7 g/dl (31.0-36.0); Mean Corpuscular Hemoglobin 31.8 pg (27.0-33.0); Mean Corpuscular Volume 94.2 fL (80.0-98.0); Mean Platelet Volume 11.4 fL (9.4-12.4); Monocytes Absolute Auto 1.1 X10*3/uL (0.1-1.2); Monocytes Percent Auto 10.3 % (2-11); Neutrophils Absolute Auto 8.2 x10*3/uL (2.0-8.3); Neutrophils Percent Auto 74.3 % (45-73); Platelet Count 150 X10*3/uL (160-400); Red Cell Distribution Width 14.3 % (11.0-16.0); White Blood Count 11.1 X10*3/uL (4.8-10.8)
[2024-08-09 07:21] LABS: Alanine Aminotransferase 126 U/L (0-40); Albumin Level 3.5 g/dL (3.5-5.0); Alkaline Phosphatase 274 U/L (39-117); Anion Gap 11 (12-20); Aspartate Amino Transferase 96 U/L (5-37); Bilirubin Total 1.1 mg/dL (0.0-1.0); Blood Urea Nitrogen 19 mg/dL (9-16); Calcium 9.6 mg/dL (8.4-10.2); Carbon Dioxide 30 mmol/L (22-29); Chloride 99 mmol/L (96-108); Creatinine Clr Calc Pharmacy 83.2; Estimated Glomerular Filt Rate > 60; Glucose Fasting 148 mg/dL (60-99); Potassium 3.3 mmol/L (3.3-5.1); Sodium 137 mmol/L (135-145); Total Protein 7.1 g/dL (6.5-8.0)
[2024-08-09] MEDS: Fluticasone/Vilanterol 100/25 BLST.W.DEV 1 PUFF INHALE (08:10)
[2024-08-09] MEDS: Folic Acid 1 MG TABLET PO (08:58)
[2024-08-09] MEDS: Thiamine HCL 100 MG TABLET PO (08:58)
[2024-08-09] MEDS: predniSONE 20 MG TABLET 40 MG PO (08:58)
[2024-08-09] MEDS: Ezetimibe 10 MG TABLET PO (08:58)
[2024-08-09] MEDS: Sennosides/Docusate Sodium TABLET 2 TAB PO ×2 (08:58→20:06)
[2024-08-09] MEDS: Metoprolol Succinate ER 50 MG TAB.ER.24H PO (08:58)
[2024-08-09] MEDS: Furosemide 20 MG TABLET PO (08:58)
[2024-08-09] MEDS: Aspirin Enteric Coated 81 MG TABLET.DR PO (08:58)
[2024-08-09] MEDS: amLODIPine Besylate 5 MG TABLET PO (08:58)
[2024-08-09] MEDS: Isosorbide Mononitrate 30 MG TAB.ER.24H PO (08:58)
[2024-08-09] MEDS: Atorvastatin Calcium 80 MG TABLET PO (08:58)
[2024-08-09] MEDS: PHENobarbitaL 30 MG TABLET PO ×2 (08:58→20:05)
[2024-08-09] MEDS: Baclofen 10 MG TABLET PO ×3 (08:58→20:05)
[2024-08-09] MEDS: polyethylene glycoL 3350 17 GM POWD.PACK PO (08:59)
[2024-08-09] MEDS: Lidocaine 4 % Patch ADH..PATCH 2 PATCH TRANSDERMA (08:59)
[2024-08-09] MEDS: 0.9 % Sodium Chloride Flush 3 ML SYRINGE IVFLUSH ×3 (08:59→20:06)
[2024-08-09] MEDS: Finasteride 5 MG TABLET PO (08:59)
[2024-08-09] MEDS: oxyCODONE HCl Immed Release 5 MG TABLET 10 MG PO ×3 (12:32→20:26)
--- NOTE | 2024-08-09 14:43 | P.PNIM_ITS ---
Subjective Subjective Date of Service: 08/09/24 Interval History: complaining of back pain, no bowel movement in last couple days, Aggarwal catheter cap during day time, no other acute events overnight. Review of Systems all other system reviewed and are negative. Physical Exam 2 Vital Signs: Vital Signs: Last Vital Signs Temp 98.3 F 08/09/24 12:00 Pulse 92 08/09/24 12:00 Resp 18 08/09/24 12:00 BP 130/68 08/09/24 12:00 Pulse Ox 94 08/09/24 12:00 O2 Del Method Room Air 08/09/24 12:00 O2 Flow Rate 2 08/06/24 06:53 BMI result Body Mass Index 27.9 Const: Other: Gen: in no acute distress HEENT: sclera anicteric, moist mucus membranes Neck: supple Lungs: clear to auscultation Heart: regular, no murmurs Abd: soft, non-tender, non-distended, no Claros sign Back: tender mid-T spine and bilateral paraspinal muscles Ext: no edema Skin: warm/well-perfused Neuro: alert and oriented x3, no focal findings Psych: appropriate affect Objective Data Active Medications Acetaminophen (Acetaminophen 325 Mg Tablet) 650 mg PO Q6H PRN PRN Reason: Pain, Mild 1-3,fever,headache Last Admin: 08/05/24 15:41 Dose: 650 mg Documented By: EMERY Albuterol Sulfate (Albuterol Sulfate 90 Mcg 8 Gm Inhaler) 2 puff INHALE Q6H PRN PRN Reason: shortness of breath or wheezing Albuterol/Ipratropium (Albuterol/Iprat 2.5/0.5mg 3 Ml Ampul.Neb) 3 ml INHALE RQ4H WHILE AWAKE PRN PRN Reason: Shortness of Breath Last Admin: 08/05/24 06:05 Dose: 3 ml Documented By: MANOHAR Amlodipine Besylate (Amlodipine Besylate 5 Mg Tablet) 5 mg PO DAILY [facility]; Protocol Last Admin: 08/09/24 08:58 Dose: 5 mg Documented By: ESME Aspirin (Aspirin Enteric Coated 81 Mg Tablet.) 81 mg PO DAILY [facility] Last Admin: 08/09/24 08:58 Dose: 81 mg Documented By: ESME Atorvastatin Calcium (Atorvastatin Calcium 80 Mg Tablet) 80 mg PO DAILY [facility] Last Admin: 08/09/24 08:58 Dose: 80 mg Documented By: ESME Baclofen (Baclofen 10 Mg Tablet) 10 mg PO TID [facility] Calcium Carbonate (Calcium Carbonate 750 Mg Tab.Chew) 750 mg PO Q4H PRN PRN Reason: Heartburn Ezetimibe (Ezetimibe 10 Mg Tablet) 10 mg PO DAILY [facility] Last Admin: 08/09/24 08:58 Dose: 10 mg Documented By: ESME Enoxaparin Sodium (Enoxaparin Sodium 40 Mg/0.4 Ml Syringe) 40 mg SUBCUT Q24H [facility] Last Admin: 08/08/24 19:54 Dose: 40 mg Documented By: VALERIE Finasteride (Finasteride 5 Mg Tablet) 5 mg PO DAILY [facility] Last Admin: 08/09/24 08:59 Dose: 5 mg Documented By: ESME Fluticasone/Vilanterol (Fluticasone/Vilanterol 100/25 Blst.W.Dev) 1 puff INHALE RDAILY [facility] Last Admin: 08/09/24 08:10 Dose: 1 puff Documented By: DILCIA Folic Acid (Folic Acid 1 Mg Tablet) 1 mg PO DAILY [facility] Last Admin: 08/09/24 08:58 Dose: 1 mg Documented By: ESME Furosemide (Furosemide 20 Mg Tablet) 20 mg PO DAILY [facility]; Protocol Last Admin: 08/09/24 08:58 Dose: 20 mg Documented By: ESME Isosorbide Mononitrate (Isosorbide Mononitrate 30 Mg Tab.Er.24h) 30 mg PO DAILY [facility]; Protocol Last Admin: 08/09/24 08:58 Dose: 30 mg Documented By: ESME Ketorolac Tromethamine (Ketorolac Tromethamine 15 Mg/Ml Vial) 15 mg IVPUSH Q6H PRN PRN Reason: Pain, Moderate(Pain Scale 4-6) Last Admin: 08/07/24 05:40 Dose: 15 mg Documented By: GALILEA Lidocaine (Lidocaine 4 % Patch Adh..Patch) 2 patch TRANSDERMA DAILY [facility]; Protocol Last Admin: 08/09/24 08:59 Dose: 2 patch Documented By: ESME Magnesium Hydroxide (Milk Of Magnesia 30 Ml Oral.Susp) 30 ml PO DAILY PRN PRN Reason: Constipation Last Admin: 08/04/24 13:51 Dose: 30 ml Documented By: MARICEL Melatonin (Melatonin 3 Mg Tablet) 6 mg PO BEDTIME PRN PRN Reason: Insomnia Last Admin: 08/08/24 22:56 Dose: 6 mg Documented By: VALERIE Metoprolol Succinate (Metoprolol Succinate Er 50 Mg Tab.Er.24h) 50 mg PO DAILY [facility]; Protocol Last Admin: 08/09/24 08:58 Dose: 50 mg Documented By: ESME Omeprazole (Omeprazole 20 Mg Capsule.Dr) 20 mg PO BID@0630,1630 [facility] Last Admin: 08/09/24 05:46 Dose: 20 mg Documented By: VALERIE Ondansetron HCl (Ondansetron Hcl 4 Mg/2 Ml Vial) 4 mg IVPUSH Q4H PRN PRN Reason: Nausea and Vomiting Last Admin: 08/04/24 18:42 Dose: 4 mg Documented By: MARICEL Oxycodone HCl (Oxycodone Hcl Immed Release 5 Mg Tablet) 10 mg PO Q4H PRN PRN Reason: pain, moderate-severe Last Admin: 08/09/24 12:32 Dose: 10 mg Documented By: ESME Pharmacy Consult (Consult Rx Etoh Phenob Im/Po) 1 each MISCELLANE ONCE PRN; Protocol PRN Reason: Consult order Phenobarbital (Phenobarbital 30 Mg Tablet) 30 mg PO BID [facility]; Protocol Stop: 08/09/24 21:01 Last Admin: 08/09/24 08:58 Dose: 30 mg Documented By: ESME Phenobarbital (Phenobarbital 30 Mg Tablet) 30 mg PO DAILY [facility]; Protocol Stop: 08/11/24 09:01 Polyethylene Glycol (Polyethylene Glycol 3350 17 Gm Powd.Pack) 17 gm PO DAILY [facility] Last Admin: 08/09/24 08:59 Dose: 17 gm Documented By: ESME Prednisone (Prednisone 20 Mg Tablet) 40 mg PO DAILY [facility] Stop: 08/10/24 08:59 Last Admin: 08/09/24 08:58 Dose: 40 mg Documented By: ESME Senna/Docusate Sodium (Sennosides/Docusate Sodium Tablet) 2 tab PO BID [facility] Last Admin: 08/09/24 08:58 Dose: 2 tab Documented By: ESME Sodium Chloride (0.9 % Sodium Chloride Flush 3 Ml Syringe) 3 ml IVFLUSH QSHIFT [facility] Last Admin: 08/09/24 08:59 Dose: 3 ml Documented By: ESME Tamsulosin HCl (Tamsulosin Hcl 0.4 Mg Capsule) 0.4 mg PO BEDTIME [facility] Last Admin: 08/08/24 20:28 Dose: 0.4 mg Documented By: VALERIE Thiamine HCl (Thiamine Hcl 100 Mg Tablet) 100 mg PO DAILY [facility] Last Admin: 08/09/24 08:58 Dose: 100 mg Documented By: ESME Labs 08/09/24 06:23 08/09/24 06:23 Labs: Laboratory Results - last 24 hr 08/02/24 08/09/24 10:11 06:23 MCV 94.2 MCH 31.8 MCHC 33.7 RDW 14.3 Plt Count 150 L MPV 11.4 Immature Gran % (Auto) 0.6 H Neut % (Auto) 74.3 H Lymph % (Auto) 14.3 L [place] % (Auto) 10.3 Eos % (Auto) 0.2 Baso % (Auto) 0.3 Lymph # (Auto) 1.6 [place] # (Auto) 1.1 Eos # (Auto) 0.0 Baso # (Auto) 0.0 Abs Immat Gran (auto) 0.07 H Absolute Neuts (auto) 8.2 Absolute Nucleated RBC 0.000 Nucleated RBC % (auto) 0.0 Anion Gap 11 L Estim Creat Clear Calc 83.2 Estimated GFR > 60 Fasting Glucose 148 H Calcium 9.6 Total Bilirubin 1.1 H AST 96 H ALT 126 H Alkaline Phosphatase 274 H Total Protein 7.1 Albumin 3.5 [place]/Lambda Ratio 1.64 [place] Light Chain Anal 324 Lambda Light Chain Anal 198 Assessment and Plan (1) Acute urinary retention: Status: Acute (2) Choledocholithiasis: Status: Acute (3) Pathological fracture: Status: Acute Plan 64yo M with ischemic CM, HFrEF, COPD, CAD s/p CABG + PCI, GERD, HTN, HLD, HTN, admitted for intractable back pain due to acute/subacute T-spine fractures intractable back pain due to compression fractures with question of pathological fracture - CTA chest: acute to subacute T5 compression fracture and subacute to chronic T7 compression fracture with sclerotic changes raising the possibility of underlying pathology/malignancy. There is also an acute to subacute nondisplaced T4 spinous process fracture. - Bone scan: intense uptake involving T5 and T7, confirming acute/subacute nature of fractures. In review of the recent CT PA examination of the chest, both fractures appear acute/subacute, and there is diffuse sclerosis throughout the T5 vertebral body highly suspicious for pathological fracture. - RADHA + sFLCR normal; PSA normal; CA 19-9 + CEA normal ; Oncology consulted and will need to f/u with them and get CT-guided biopsy of T5 lesion as outpt - will DC IV Dilaudid increase dose of oxycodone to 10 mg recommend out of chair and ambulation,continue baclofen + lidocaine patch asymptomatic choledocholithiasis with biliary duct dilation - low fat diet, GI consulted; likely stone will pass on its own; abd US without stones - LFTs trending down, perhaps passing stone; abd completely soft and tolerating diet acute hypoxic respiratory failure due to acute exacerbation of COPD - flu/RSV/Covid PCR negative - prednisone 08/05-08/10, nebs - continue Breo, hypoxia resolved AUD with withdrawal syndrome - started phenobarbital taper 08/05-; thiamine, folate; Addiction Medicine acute urinary retention - urology recommend capping, outpatient follow-up with Urology for voiding trial continue Flomax ischemic CM and hypertension chronic HFrEF - continue Imdur, metoprolol succinate, PO furosemide CAD - continue atorvastatin, metoprolol succinate, ASA, ezetimibe GERD - PPI VTE ppx - enoxaparin dispo - home with PT eventually In my clinical judgment, the patient requires continued inpatient hospitalization for the following reasons: pain control, EtOH withdrawal Quality Stroke Does the patient have a stroke diagnosis?: No VTE Prior VTE?: No VTE Risk Level:: Medical - moderate - high VTE Device Contraindication: Treatment Not Indicated VTE Drug Contraindication: N/A - Med Ordered
[2024-08-09] MEDS: Tamsulosin HCL 0.4 MG CAPSULE PO (20:05)
[2024-08-09] MEDS: Enoxaparin Sodium 40 MG/0.4 ML SYRINGE SUBCUT (20:06)
[2024-08-10] MEDS: Melatonin 3 MG TABLET 6 MG PO (01:07)
[2024-08-10] MEDS: oxyCODONE HCl Immed Release 5 MG TABLET 10 MG PO ×4 (01:10→13:26)
[2024-08-10 03:21] VITALS: BP 138/71; PULSE 63; RESP 18; TEMP 36.6; O2SAT 95
[2024-08-10] MEDS: Omeprazole 20 MG CAPSULE.DR PO (05:44)
[2024-08-10 07:44] VITALS: BP 134/67; PULSE 76; RESP 16; TEMP 36.8; O2SAT 94
[2024-08-10 07:46] VITALS: BP 134/70; PULSE 80; RESP 16; TEMP 36.6; O2SAT 95
[2024-08-10] MEDS: Fluticasone/Vilanterol 100/25 BLST.W.DEV 1 PUFF INHALE (07:47)
[2024-08-10 07:49] VITALS: PULSE 96; RESP 16; O2SAT 95
[2024-08-10] MEDS: Thiamine HCL 100 MG TABLET PO (08:27)
[2024-08-10] MEDS: amLODIPine Besylate 5 MG TABLET PO (08:27)
[2024-08-10] MEDS: Metoprolol Succinate ER 50 MG TAB.ER.24H PO (08:27)
[2024-08-10] MEDS: Baclofen 10 MG TABLET PO ×2 (08:27→13:27)
[2024-08-10] MEDS: Ezetimibe 10 MG TABLET PO (08:27)
[2024-08-10] MEDS: Furosemide 20 MG TABLET PO (08:27)
[2024-08-10] MEDS: PHENobarbitaL 30 MG TABLET PO (08:27)
[2024-08-10] MEDS: Isosorbide Mononitrate 30 MG TAB.ER.24H PO (08:28)
[2024-08-10] MEDS: polyethylene glycoL 3350 17 GM POWD.PACK PO (08:28)
[2024-08-10] MEDS: Sennosides/Docusate Sodium TABLET 2 TAB PO (08:28)
[2024-08-10] MEDS: Lidocaine 4 % Patch ADH..PATCH 2 PATCH TRANSDERMA (08:28)
[2024-08-10] MEDS: Aspirin Enteric Coated 81 MG TABLET.DR PO (08:28)
[2024-08-10] MEDS: Folic Acid 1 MG TABLET PO (08:28)
[2024-08-10] MEDS: Finasteride 5 MG TABLET PO (08:28)
[2024-08-10] MEDS: Atorvastatin Calcium 80 MG TABLET PO (08:28)
[2024-08-10] MEDS: 0.9 % Sodium Chloride Flush 3 ML SYRINGE IVFLUSH (08:29)
--- NOTE | 2024-08-10 10:17 | HO.ADDICTCON ---
History of Present Illness Date of Service: 08/10/2024 Chief Complaint: INTRACTABLE BACK PAIN Reason for Consult: AUD Sources of Information: patient interviewed and chart reviewed HPI Narrative: Patient is a 64 year old male medically admitted with intractable back pain Developed alcohol withdrawal sx during admission and placed on pheno taper Today patient seen in room 344, he is awake , alert, pleasant and engaged in interview. He reports that he has been drinking 4-5 beers daily for years. Reports he has never stopped drinking, so he has never experienced withdrawal sx. Denies any history of treatment. Denies any other substance use Withdrawal sx have resolved, and patient reports he is likely discharging home today Discussed patients goals with alcohol and he stated, I have to stop, I'm scared . He then became tearful and briefly spoke about the different health concerns he has happening at the moment Reviewed options for medication as well as other recovery supports. AUDIT-C Brief Intervention This advertising writer met with patient to discuss current alcohol use and concerns related to increased risk of alcohol related problems. Discussed how alcohol use has impacted health, including negative impact on mental health and overall physical wellbeing. Discussed risk reduction strategies including drinking below the recommended limit. Review of Systems Constitutional: Reports as per HPI, Reports difficulty sleeping and Reports malaise Gastrointestinal: Denies loose stools and Denies nausea Psychiatric: Reports anxiety Diagnostics Vital Signs (24Hr): Vital Signs - 24 hr 08/09/24 12:00 08/09/24 15:53 08/09/24 19:44 Temperature 98.3 F 98.3 F 98.3 F Pulse Rate 92 86 72 Respiratory Rate 18 18 18 Blood Pressure 130/68 132/68 150/73 H Pulse Oximetry 94 93 95 Oxygen Delivery Method Room Air Room Air Room Air 08/09/24 23:57 08/10/24 03:21 08/10/24 07:44 Temperature 97.8 F 97.8 F 98.2 F Pulse Rate 70 63 76 Respiratory Rate 20 18 16 Blood Pressure 139/70 138/71 134/67 Pulse Oximetry 97 95 94 Oxygen Delivery Method Room Air Room Air Room Air 08/10/24 07:46 08/10/24 07:49 Temperature 98 F Pulse Rate 80 96 Respiratory Rate 16 16 Blood Pressure 134/70 Pulse Oximetry 95 Oxygen Delivery Method Room Air BMI result Body Mass Index 27.9 Labs 08/09/24 06:23 08/09/24 06:23 Labs: Laboratory Results - last 48 hr 08/02/24 08/09/24 10:11 06:23 WBC 11.1 H RBC 4.50 L Hgb 14.3 Hct 42.4 MCV 94.2 MCH 31.8 MCHC 33.7 RDW 14.3 Plt Count 150 L MPV 11.4 Immature Gran % (Auto) 0.6 H Neut % (Auto) 74.3 H Lymph % (Auto) 14.3 L Wetzel % (Auto) 10.3 Eos % (Auto) 0.2 Baso % (Auto) 0.3 Lymph # (Auto) 1.6 [place] # (Auto) 1.1 Eos # (Auto) 0.0 Baso # (Auto) 0.0 Abs Immat Gran (auto) 0.07 H Absolute Neuts (auto) 8.2 Absolute Nucleated RBC 0.000 Nucleated RBC % (auto) 0.0 Sodium 137 Potassium 3.3 Chloride 99 Carbon Dioxide 30 H Anion Gap 11 L BUN 19 H Creatinine 0.93 Estim Creat Clear Calc 83.2 Estimated GFR > 60 Fasting Glucose 148 H Calcium 9.6 Total Bilirubin 1.1 H AST 96 H ALT 126 H Alkaline Phosphatase 274 H Total Protein 7.1 Albumin 3.5 [place]/Lambda Ratio 1.64 [place] Light Chain Anal 324 Lambda Light Chain Anal 198 Imaging Radiology Impressions: ITS Impressions Chest X-Ray 08/01/24 11:29 IMPRESSION: 1. COPD with stable left base scarring. No active superimposed pulmonary disease. 2. Prior sternotomy and CABG. Electronically signed by: Eliu Hernandez MD 08/01/2024 11:53 AM EDT RP Bone Scan Nuclear Medicine 08/02/24 11:00 IMPRESSION: 1. Intense uptake involving T5 and T7, confirming acute/subacute nature of fractures. In review of the recent CT PA examination of the chest, both fractures appear acute/subacute, and there is diffuse sclerosis throughout the T5 vertebral body highly suspicious for pathological fracture. 2. There are no additional pathological regions of skeletal uptake identified. Electronically signed by: Eliu Hernandez MD 08/02/2024 04:42 PM EDT RP Abdomen/Pelvis CT 08/03/24 09:45 IMPRESSION: 1. Mild dilatation of the distal common bile duct in the pancreatic head of uncertain significance. If there is clinical concern for pathology in this region, MRI could be performed. 2. Large amount of stool throughout the colon. Area of wall thickening versus underdistention involving the ascending colon. This could be further evaluated with colonoscopy if indicated. Electronically signed by: Johnny Yu MD 08/03/2024 10:29 AM EDT RP Chest X-Ray 08/05/24 07:11 IMPRESSION: Subsegmental atelectasis versus scarring, left lung base. Chronic lung disease. Electronically signed by: Kiran Walsh MD 08/05/2024 07:46 AM EDT RP Abdomen Ultrasound 08/05/24 11:46 IMPRESSION: Concerning choledocholithiasis. Please refer to the recent MRI dated August 03, 2024.. Electronically signed by: Kiran Walsh MD 08/05/2024 12:39 PM EDT RP Mental Status Exam Mental Status Exam Patient Appearance: Appropriate Level of Consciousness: Awake, Appropriate and Alert Patient Behavior: Appropriate, Talkative and Crying Mood Description: Fearful Affect Description: Anxious and Sad Speech Pattern: Clear Hallucinations: None Judgement: Good Medications Medications Current Medications Acetaminophen (Acetaminophen 325 Mg Tablet) 650 mg PO Q6H PRN PRN Reason: Pain, Mild 1-3,fever,headache Last Admin: 08/05/24 15:41 Dose: 650 mg Albuterol Sulfate (Albuterol Sulfate 90 Mcg 8 Gm Inhaler) 2 puff INHALE Q6H PRN PRN Reason: shortness of breath or wheezing Albuterol/Ipratropium (Albuterol/Iprat 2.5/0.5mg 3 Ml Ampul.Neb) 3 ml INHALE RQ4H WHILE AWAKE PRN PRN Reason: Shortness of Breath Last Admin: 08/05/24 06:05 Dose: 3 ml Amlodipine Besylate (Amlodipine Besylate 5 Mg Tablet) 5 mg PO DAILY [facility]; Protocol Last Admin: 08/10/24 08:27 Dose: 5 mg Aspirin (Aspirin Enteric Coated 81 Mg Tablet.) 81 mg PO DAILY [facility] Last Admin: 08/10/24 08:28 Dose: 81 mg Atorvastatin Calcium (Atorvastatin Calcium 80 Mg Tablet) 80 mg PO DAILY [facility] Last Admin: 08/10/24 08:28 Dose: 80 mg Baclofen (Baclofen 10 Mg Tablet) 10 mg PO TID [facility] Last Admin: 08/10/24 08:27 Dose: 10 mg Calcium Carbonate (Calcium Carbonate 750 Mg Tab.Chew) 750 mg PO Q4H PRN PRN Reason: Heartburn Ezetimibe (Ezetimibe 10 Mg Tablet) 10 mg PO DAILY [facility] Last Admin: 08/10/24 08:27 Dose: 10 mg Enoxaparin Sodium (Enoxaparin Sodium 40 Mg/0.4 Ml Syringe) 40 mg SUBCUT Q24H [facility] Last Admin: 08/09/24 20:06 Dose: 40 mg Finasteride (Finasteride 5 Mg Tablet) 5 mg PO DAILY [facility] Last Admin: 08/10/24 08:28 Dose: 5 mg Fluticasone/Vilanterol (Fluticasone/Vilanterol 100/25 Blst.W.Dev) 1 puff INHALE RDAILY [facility] Last Admin: 08/10/24 07:47 Dose: 1 puff Folic Acid (Folic Acid 1 Mg Tablet) 1 mg PO DAILY [facility] Last Admin: 08/10/24 08:28 Dose: 1 mg Furosemide (Furosemide 20 Mg Tablet) 20 mg PO DAILY [facility]; Protocol Last Admin: 08/10/24 08:27 Dose: 20 mg Isosorbide Mononitrate (Isosorbide Mononitrate 30 Mg Tab.Er.24h) 30 mg PO DAILY [facility]; Protocol Last Admin: 08/10/24 08:28 Dose: 30 mg Ketorolac Tromethamine (Ketorolac Tromethamine 15 Mg/Ml Vial) 15 mg IVPUSH Q6H PRN PRN Reason: Pain, Moderate(Pain Scale 4-6) Last Admin: 08/07/24 05:40 Dose: 15 mg Lidocaine (Lidocaine 4 % Patch Adh..Patch) 2 patch TRANSDERMA DAILY [facility]; Protocol Last Admin: 08/10/24 08:28 Dose: 2 patch Magnesium Hydroxide (Milk Of Magnesia 30 Ml Oral.Susp) 30 ml PO DAILY PRN PRN Reason: Constipation Last Admin: 08/04/24 13:51 Dose: 30 ml Melatonin (Melatonin 3 Mg Tablet) 6 mg PO BEDTIME PRN PRN Reason: Insomnia Last Admin: 08/10/24 01:07 Dose: 6 mg Metoprolol Succinate (Metoprolol Succinate Er 50 Mg Tab.Er.24h) 50 mg PO DAILY [facility]; Protocol Last Admin: 08/10/24 08:27 Dose: 50 mg Omeprazole (Omeprazole 20 Mg Capsule.Dr) 20 mg PO BID@0630,1630 [facility] Last Admin: 08/10/24 05:44 Dose: 20 mg Ondansetron HCl (Ondansetron Hcl 4 Mg/2 Ml Vial) 4 mg IVPUSH Q4H PRN PRN Reason: Nausea and Vomiting Last Admin: 08/04/24 18:42 Dose: 4 mg Oxycodone HCl (Oxycodone Hcl Immed Release 5 Mg Tablet) 10 mg PO Q4H PRN PRN Reason: pain, moderate-severe Last Admin: 08/10/24 09:22 Dose: 10 mg Pharmacy Consult (Consult Rx Etoh Phenob Im/Po) 1 each MISCELLANE ONCE PRN; Protocol PRN Reason: Consult order Phenobarbital (Phenobarbital 30 Mg Tablet) 30 mg PO DAILY [facility]; Protocol Stop: 08/11/24 09:01 Last Admin: 08/10/24 08:27 Dose: 30 mg Polyethylene Glycol (Polyethylene Glycol 3350 17 Gm Powd.Pack) 17 gm PO DAILY [facility] Last Admin: 08/10/24 08:28 Dose: 17 gm Senna/Docusate Sodium (Sennosides/Docusate Sodium Tablet) 2 tab PO BID [facility] Last Admin: 08/10/24 08:28 Dose: 2 tab Sodium Chloride (0.9 % Sodium Chloride Flush 3 Ml Syringe) 3 ml IVFLUSH QSHIFT [facility] Last Admin: 08/10/24 08:29 Dose: 3 ml Tamsulosin HCl (Tamsulosin Hcl 0.4 Mg Capsule) 0.4 mg PO BEDTIME [facility] Last Admin: 08/09/24 20:05 Dose: 0.4 mg Thiamine HCl (Thiamine Hcl 100 Mg Tablet) 100 mg PO DAILY [facility] Last Admin: 08/10/24 08:27 Dose: 100 mg Allergies Allergies Allergy/AdvReac Type Severity Reaction Status Date / Time ARB-Angiotensin Receptor AdvReac Severe [place] Verified 08/01/24 11:10 Antagonist MALVIN Inhibitors AdvReac Intermediate [place] Verified 08/01/24 11:10 Assessment & Plan Assessment & Plan (1) Alcohol use disorder, moderate, dependence: Status: Acute Code(s): F10.20 - Alcohol dependence, uncomplicated Assessment and Plan: discussed options to support patients goal of abstaining from alcohol, including JADE, and mutual aid groups Patient requesting information to review, however declines follow up or prescription for JADE prior to discharge. consulting senior practice director to review resources and ensure patient is aware how to seek support should he change his mind. reviewed things to expect with early recovery, including difficulty sleeping and anxiety. Total time managing care of this patient today __30__ minutes. [facility] Past Medical History Medical History Colon cancer screening Obesity (BMI 30-39.9) Tobacco abuse Heart failure with reduced ejection fraction Adult general medical exam Screening for prostate cancer Ischemic cardiomyopathy Colonoscopy refused Umbilical hernia COPD (chronic obstructive pulmonary disease) Coronary artery disease GERD (gastroesophageal reflux disease) Hypercholesterolemia Insomnia Hypertension Family History Family History Father No problems noted. Mother No problems noted. Sister No problems noted. Sister No problems noted. Brother No problems noted. Brother Myocardial infarct Liver cancer Surgical History Surgical History Hx of CABG Social History Social History Household Members: Family Household Members Other:: brother Housing: House Do you presently have visiting nurse or other home services: No Alcohol intake: current Alcohol intake frequency: 3 or more drinks per day Alcohol type: beer Patient Tobacco Use Status: Former Tobacco user Tobacco use type: Cigarette e-Cigarette/Vaping Use: Never Used Second Hand Smoke Exposure: No Substance Use Type: Marijuana Advance Directives Date on File: 01/07/23 service: No Current occupational status: disabled Cognitive needs: No Hearing needs: No Vision needs: Yes
--- NOTE | 2024-08-10 10:27 | MHC.CM.PN ---
pt being dcd today with mary merritt
[2024-08-10] MEDS: Magnesium Citrate 300 ML SOLUTION PO (11:58)
[2024-08-10 12:00] VITALS: BP 134/71; PULSE 81; RESP 18; TEMP 36.9; O2SAT 94
--- NOTE | 2024-08-10 13:22 | PM.DS ---
DS: Providers Provider Date of Service: 08/10/24 Date of admission: 08/01/24 19:49 Date of discharge: 08/10/24 Primary care physician: Boy Jorge MD Consults: 08/03/24 07:24 Consult to Hematology / Oncology Routine Consulting Provider: [facility] Oncology/Hematology Reason for consultation: pathological fracture 08/04/24 09:30 Consult to Gastroenterology Routine Consulting Provider: [facility] Gastroenterology Services Reason for consultation: choledocholithiasis/ CBD dilation on malignancy wokrup 08/07/24 09:39 Consult to Urology Routine Consulting Provider: [facility] Urology Services Reason for consultation: urinary retention 08/09/24 15:10 Addiction Medicine Provider Routine Consulting Provider: Addiction Covering Reason for consultation: etoh use 08/10/24 10:18 Inpt - Recovery Team Routine Comment: Reason for consultation: KRISTY eval and JADE information DS: Diagnosis Discharge Diagnosis (1) Alcohol use disorder, moderate, dependence: Status: Acute DS: Summary Hospital Course Hospital Course: History of presenting illness: Date of Service: 08/01/24 Attending physician on admission: Farideh Ballesteros Chief Complaint: back pain 64-year-old male with a past medical history ischemic cardiomyopathy, heart failure with reduced EF, COPD CAD s/p bypass and stenting, GERD, HLD, HTN recently treated for COPD exacerbation by PCP presented to the ED earlier today for evaluation of sob and severe back pain ongoing x 4 days. He states when he takes a deep breath or coughs pain significantly worsens. However, significant pain/discomfort at rest, rates 10/10. It is constant and worsens with any movement, breathing, palpation. Localizes to the mid back midline and bilateral. No radiation of the pain. No paresthesias, weakness, saddle anesthesia, bowel/bladder dysfunction. He denies any known injury. Reports he feels short of breath as he is unable to take a deep breath without significant pain. Reports cough has baseline, no expectoration. No fevers, chills, sore throat, congestion, sick contacts, palpitations, or chest pain. Since arrival, he has been hypertensive, admission 174/85. Vital signs otherwise stable. Hematology studies unremarkable. Renal function electrolyte levels are normal. AST 88, ALT 170, alkaline phosphatase 175. Troponins flat. BNP 220. Negative for COVID-19, RSV, influenza. CTA of the chest negative for any aortic dissection or aneurysm. No PE identified. There is left lower lobe pleural parenchymal scarring but no pneumonia or effusion. There is an acute to subacute T5 compression fracture and subacute to chronic T7 compression fracture with sclerotic changes raising the possibility of underlying pathology/malignancy. There is also an acute to subacute nondisplaced T4 spinous process fracture. In the ED, he has received multiple doses of IV morphine, hydromorphone, cyclobenzaprine with limited improvement. He will be admitted for further management of intractable back pain secondary to multiple compression fractures. He is noted to be tremulous on exam. He states he feels this is secondary to hunger and pain. Reports drinking 4 beers on a daily basis. Denies any illicit drug use but does smoke marijuana occasionally. He is a former cigarette smoker. Hospital course: 64yo M with ischemic CM, HFrEF, COPD, CAD s/p CABG + PCI, GERD, HTN, HLD, HTN, admitted for intractable back pain due to acute/subacute T-spine fractures Intractable back pain due to compression fractures with question of pathological fracture, CTA chest: acute to subacute T5 compression fracture and subacute to chronic T7 compression fracture with sclerotic changes raising the possibility of underlying pathology/malignancy, also noted to have an acute to subacute nondisplaced T4 spinous process fracture. Bone scan: intense uptake involving T5 and T7, confirming acute/subacute nature of fractures. In review of the recent CT PA examination of the chest, both fractures appear acute/subacute, and there is diffuse sclerosis throughout the T5 vertebral body highly suspicious for pathological fracture. RADHA + sFLCR normal; PSA normal; CA 19-9 + CEA normal ; Oncology consulted Dr. Coker recommend CT-guided biopsy of T5 lesion as outpt, patient treated with IV Dilaudid , baclofen, lidocaine patch and oxycodone Pain significantly improved therefore discharged home on oxycodone 5-10 mg as needed q.4 hours for pain control, Celebrex and lidocaine patch, recommend outpatient follow-up with Dr. Coker to arrange for outpatient T5 biopsy. Asymptomatic choledocholithiasis with biliary duct dilation patient asymptomatic, seen by GI no intervention recommended likely stone will pass on its own; abd US without stones, LFTs trending down, perhaps passed stone, Abdominal examination benign, tolerating diet. Acute hypoxic respiratory failure due to acute exacerbation of COPD, flu/RSV/Covid PCR negative treated with steroids and nebulizer, hypoxia resolved AUD with withdrawal syndrome treated with phenobarb protocol thiamine and folate and was followed by Addiction Team outpatient referrals given. Acute urinary retention seen by urology they recommend capping during day, and continue Aggarwal bag at night, outpatient follow-up with Urology for voiding trial continue Flomax. Ischemic CM and hypertension/chronic HFrEF - continue Imdur, metoprolol succinate and PO furosemide CAD - continue atorvastatin, metoprolol succinate, ASA, ezetimibe. Time Attestation Discharge Coordination Time (in mins): 40 Quality: Safe Use of Opioids Does Pt have an Active Cancer Diagnosis on the Problem List?: No Quality: Stroke Does the patient have a stroke diagnosis?: No Physical Exam Vital Signs: Vital Signs: Last Vital Signs Temp 98.4 F 08/10/24 12:00 Pulse 81 08/10/24 12:00 Resp 18 08/10/24 12:00 BP 134/71 08/10/24 12:00 Pulse Ox 94 08/10/24 12:00 O2 Del Method Room Air 08/10/24 12:00 O2 Flow Rate 2 08/06/24 06:53 BMI result Body Mass Index 27.9 Const: Other: Gen: in no acute distress HEENT: sclera anicteric, moist mucus membranes Neck: supple Lungs: clear to auscultation Heart: regular, no murmurs Abd: soft, non-tender, non-distended, no Claros sign Back: tender mid-T spine and bilateral paraspinal muscles Ext: no edema Skin: warm/well-perfused Neuro: alert and oriented x3, no focal findings Psych: appropriate affect DS: Data Data Completed and Pending Completed studies during hospitalization [Text1]: Procedures Introduction of Remdesivir Anti-infective into Peripheral Vein, Percutaneous Approach, [employer] 5 (01/19/23) Discharge Plan Discharge Anticipated Discharge Date/Time: 08/10/24 13:03 Patient Disposition: Home Health Service Discharge Diagnosis: Intractable back pain due to T5 and T7 compression fracture Asymptomatic choledocholithiasis Acute hypoxic respiratory failure due to acute COPD exacerbation Alcohol use disorder Acute urinary retention Referrals: [facility]ists [Provider Group] [facility] [Outside] - 3-5 Days (HOME SERVICES FOR PHYSICAL THERAPY- A THERAPIST WILL CALL YOU TO SET UP FIRST VISIT.) Boy Jorge MD [Primary Care Provider] - 1 week Discharge Medications: New lidocaine [Lidocaine Pain Relief] 4 % Adhesive Patch,Medicated 1 patch transdermal DAILY Qty: 10 0RF Protocol: Apply to: Apply to: mid-back polyethylene glycol 3350 17 gram Powder In Packet 17 g PO DAILY Qty: 100 0RF finasteride 5 mg Tablet 5 mg PO DAILY Qty: 90 0RF sennosides-docusate sodium [Senna Plus] 8.6-50 mg Tablet 2 tab PO BID Qty: 120 0RF tamsulosin 0.4 mg Capsule 0.4 mg PO BEDTIME Qty: 90 0RF oxycodone 5 mg Tablet 5 mg PO Q4H PRN (Reason: pain, moderate-severe) Qty: 40 0RF Rx Instructions: Partial Fill upon patient request. Take 1-2 tablets as needed for [id number] pain celecoxib [Celebrex] 200 mg capsule 200 mg PO DAILY Qty: 30 0RF Continued isosorbide mononitrate 30 mg tablet extended release 24 hr 30 mg PO DAILY 90 Days Qty: 90 3RF rosuvastatin 40 mg tablet 40 mg PO DAILY 90 Days Qty: 90 2RF ezetimibe 10 mg tablet 10 mg PO DAILY Qty: 90 3RF albuterol sulfate [Ventolin HFA] 90 mcg/actuation HFA aerosol inhaler 2 puff inhalation Q6H PRN (Reason: shortness of breath or wheezing) Qty: 8.5 0RF amlodipine 5 mg tablet 5 mg PO DAILY Qty: 90 0RF metoprolol succinate 50 mg tablet extended release 24 hr 50 mg PO DAILY 90 Days Qty: 90 2RF aspirin 81 mg Tablet,Delayed Release (Dr/Ec) 81 mg PO DAILY melatonin 10 mg Tablet 10 mg PO BEDTIME fluticasone propion-salmeterol [Wixela Inhub] 250-50 mcg/dose blister with device 1 inh inhalation BID Qty: 60 12RF omeprazole 20 mg capsule,delayed release(DR/EC) 20 mg PO BID@0630,1630 Qty: 180 0RF cyclobenzaprine 10 mg tablet 10 mg PO BID PRN (Reason: for muscle spasm) Qty: 30 0RF furosemide [Lasix] 20 mg tablet 20 mg PO DAILY Qty: 30 2RF Discharge Orders: Discharge Order (Routine); Ordered 08/10/24 Ordered By: Brian Gimenez Diet: Advance to usual diet Activity on Discharge: As tolerated Stand Alone Forms: Patient Portal Discharge page Print Language: Japanese Care Plan Goals: Acute to subacute T5 compression fracture suspicious for pathologic fracture Subacute to chronic T7 compression fracture Take oxycodone 5-10 mg as needed every 4 hours for [id number] pain Take Celebrex 200 mg 1 tablet daily anti-inflammatory medicine Take Tylenol as needed for mild pain/lidocaine patch Take MiraLax and senna as ordered to avoid constipation Urinary retention continue Aggarwal catheter, continue Flomax and finasteride, use blue catheter capped during day to empty bladder every 3-4 hours and continue overnight bag in the evening You had abdomen MRI, abdominal and pelvic CAT scan, and bone scan for follow-up on acute to subacute compression fractures T5 and T7 Health Concerns: Continue all home medications as before Plan of Treatment: Outpatient follow-up with primary care physician call for appointment Outpatient follow-up with Dr. Coker from Oncology make an appointment in 1-2 weeks Outpatient follow-up with Dr. Darrell Bueno call for appointment in 2 weeks for voiding trial Assessment: As above Patient Instructions: COPD (Chronic Obstructive Pulmonary Disease) (DC), Back Pain (ED) Discharge Date/Time: 08/10/24 17:16
[2024-08-10 16:43] VITALS: BP 135/70; PULSE 81; RESP 18; TEMP 36.8; O2SAT 95
[2024-08-11 00:53] LABS: NT-proBNP 13170 pg/mL (<125)
== END 2024-08-10 17:16 | disposition home health service (06) | DRG 542 ==
LOC: HO.ED 16:08 → HO.EDOVER 20:07 → HO.S3 08-03 06:56
PROVIDERS: Family Medicine; Hospitalist; Internal Medicine; Physician Assistant; Admitting Provider Physician Assistant; Emergency Provider Emergency Medicine Emergency Medical Services; PCP Internal Medicine; Visit Provider Hospitalist
DX: M48.54XA Collapsed vertebra, not elsewhere classified, thoracic region, initial encounter for fracture (principal); J96.01 Acute respiratory failure with hypoxia; I50.22 Chronic systolic (congestive) heart failure; J44.1 Chronic obstructive pulmonary disease with (acute) exacerbation; F10.239 Alcohol dependence with withdrawal, unspecified; I11.0 Hypertensive heart disease with heart failure; K80.50 Calculus of bile duct without cholangitis or cholecystitis without obstruction; I25.10 Atherosclerotic heart disease of native coronary artery without angina pectoris; I25.5 Ischemic cardiomyopathy; K76.0 Fatty (change of) liver, not elsewhere classified; R33.0 Drug induced retention of urine; T40.2X5A Adverse effect of other opioids, initial encounter; K21.9 Gastro-esophageal reflux disease without esophagitis; Z20.822 Contact with and (suspected) exposure to COVID-19; Z95.1 Presence of aortocoronary bypass graft; Z87.891 Personal history of nicotine dependence; Z79.51 Long term (current) use of inhaled steroids; Z79.82 Long term (current) use of aspirin; Z79.899 Other long term (current) drug therapy
CPT/HCPCS: 0241U; 36415; 71045; 71275; 74177; 74183; 76705; 78306; 80048; 80053; 80076; 82248; 82378; 82784; 82803; 83521; 83615; 83735; 83880; 83883; 84153; 84484; 85025; 85027; 85379; 85610; 86301; 86334; 93005; 94640; 97116; 97161; 97530; 99285; A9503; A9585; J1171; J1650; J1885; J2270; J2405; J2560; Q9967; S9485

== ENCOUNTER → 2024-08-01 11:10 | Outpatient (BNV) | payer MEDICARE, MEDICAID, SELFPAY | PROVIDERS: Admitting Provider Physician Assistant; Emergency Provider Emergency Medicine Emergency Medical Services; PCP Internal Medicine; Visit Provider Internal Medicine Cardiovascular Disease | DX: R07.9 Chest pain, unspecified (principal); I45.10 Unspecified right bundle-branch block; R94.31 Abnormal electrocardiogram [ECG] [EKG] | CPT/HCPCS: 93010 ==

== ENCOUNTER → 2024-08-01 11:29 | Outpatient (BNV) | payer MEDICARE, SELFPAY | PROVIDERS: Emergency Provider Emergency Medicine Emergency Medical Services; PCP Internal Medicine; Visit Provider Radiology Diagnostic Radiology | DX: S22.050A Wedge compression fracture of T5-T6 vertebra, initial encounter for closed fracture (principal); J44.9 Chronic obstructive pulmonary disease, unspecified | CPT/HCPCS: 71045; 71275 ==

== ENCOUNTER 2024-08-01 19:49 | Outpatient (BNV) | payer MEDICARE, MEDICAID, SELFPAY | END 2024-08-02 11:00 | PROVIDERS: Admitting Provider Physician Assistant; Emergency Provider Emergency Medicine Emergency Medical Services; PCP Internal Medicine; Visit Provider Radiology Diagnostic Radiology | DX: S22.050A Wedge compression fracture of T5-T6 vertebra, initial encounter for closed fracture (principal) | CPT/HCPCS: 78306 ==

== ENCOUNTER 2024-08-01 19:49 | Outpatient (BNV) | payer MEDICARE, MEDICAID, SELFPAY | END 2024-08-03 09:45 | PROVIDERS: Admitting Provider Physician Assistant; Emergency Provider Emergency Medicine Emergency Medical Services; PCP Internal Medicine; Visit Provider Radiology Diagnostic Radiology | DX: K80.20 Calculus of gallbladder without cholecystitis without obstruction (principal); C80.1 Malignant (primary) neoplasm, unspecified | CPT/HCPCS: 74177; 74183 ==

== ENCOUNTER 2024-08-01 19:49 | Outpatient (BNV) | payer MEDICARE, MEDICAID, SELFPAY | END 2024-08-05 07:11 | PROVIDERS: Admitting Provider Physician Assistant; Emergency Provider Emergency Medicine Emergency Medical Services; PCP Internal Medicine; Visit Provider Radiology Diagnostic Radiology | DX: K80.80 Other cholelithiasis without obstruction (principal); J98.11 Atelectasis | CPT/HCPCS: 71045; 76705 ==

== ENCOUNTER → 2024-08-01 19:49 | Outpatient (BNV) | payer MEDICARE, MEDICAID, SELFPAY | PROVIDERS: Admitting Provider Physician Assistant; Emergency Provider Emergency Medicine Emergency Medical Services; PCP Internal Medicine; Visit Provider Urology | DX: R33.8 Other retention of urine (principal) | CPT/HCPCS: 99223 ==

== ENCOUNTER → 2024-08-01 19:49 | Outpatient (BNV) | payer MEDICARE, MEDICAID, SELFPAY | PROVIDERS: Admitting Provider Physician Assistant; Emergency Provider Emergency Medicine Emergency Medical Services; PCP Internal Medicine; Visit Provider Internal Medicine Gastroenterology | DX: K80.50 Calculus of bile duct without cholangitis or cholecystitis without obstruction (principal) | CPT/HCPCS: 99222 ==

== ENCOUNTER → 2024-08-01 19:49 | Outpatient (BNV) | payer MEDICARE, MEDICAID, SELFPAY | PROVIDERS: Admitting Provider Physician Assistant; Emergency Provider Emergency Medicine Emergency Medical Services; PCP Internal Medicine; Visit Provider Nurse Practitioner Psychiatric/Mental Health | DX: F10.20 Alcohol dependence, uncomplicated (principal) | CPT/HCPCS: 99222 ==

== ENCOUNTER → 2024-08-01 19:49 | Outpatient (BNV) | payer MEDICARE, MEDICAID, SELFPAY | PROVIDERS: Admitting Provider Physician Assistant; Emergency Provider Emergency Medicine Emergency Medical Services; PCP Internal Medicine; Visit Provider Internal Medicine | DX: M84.40XA Pathological fracture, unspecified site, initial encounter for fracture (principal); M54.9 Dorsalgia, unspecified | CPT/HCPCS: 99222 ==

== ENCOUNTER → 2024-08-01 19:49 | Outpatient (BNV) | payer MEDICARE, SELFPAY | PROVIDERS: Admitting Provider Physician Assistant; Emergency Provider Emergency Medicine Emergency Medical Services; PCP Internal Medicine; Visit Provider Physician Assistant | DX: S22.000A Wedge compression fracture of unspecified thoracic vertebra, initial encounter for closed fracture (principal) | CPT/HCPCS: 99223; 99232; 99499 ==

== ENCOUNTER 2024-08-19 13:41 | Outpatient (AMB) | payer MEDICARE, MEDICAID, SELFPAY ==
--- NOTE | 2024-08-19 13:47 | MHC.PC.OV ---
Vital Signs 08/19/24 13:48 Height 5 ft 8 in Weight 195 lb BMI 29.6 BP 132/70 Blood Pressure Location Lt brachial Position Sitting Pulse 82 Pulse Source Pulse Oximeter Temp 97.5 F Temp Source Temporal Artery Scan Pulse Oximetry (%) 95 Oxygen Delivery Method Room Air Intake Visit Reasons: TCM [facility] 08[place]10 Back pain Seismology Teacher Required: No Accompanied by: Self / Same As Patient Allergies ARB-Angiotensin Receptor Antagonist Adverse Reaction (Severe, Verified 08/19/24 13:54) [place] MALVIN Inhibitors Adverse Reaction (Intermediate, Verified 08/19/24 13:54) [place] Tobacco use date assessed: 07/05/24 Fall risk assessment: No Falls in past year Last assessed Fall Risk: 08/19/24 Dental Screening Dental Screen Date: 07/05/24 [facility] TCM TCM Information Date of Discharge 08/15/24 Discharged From [facility] Interactive Contact Date (Reference documentation from this date) 08/10/24 HPI Comments History of Present Illness Details 64 y/o Male patient who presents to the clinic for TCM. Pmhx significant for Ischemic cardiomyopathy, heart failure with reduced EF, COPD CAD s/p bypass and stenting, GERD, HLD, and HTN. Pt was admitted at [facility] on 08/01 - 08/10 for Intractable back pain due to T5 and T7 compression fracture, Asymptomatic choledocholithiasis, Acute hypoxic respiratory failure due to acute COPD exacerbation, Alcohol use disorder and Acute urinary retention. CTA of the chest negative for any aortic dissection or aneurysm. No PE identified. There is left lower lobe pleural parenchymal scarring but no pneumonia or effusion. There is an acute to subacute T5 compression fracture and subacute to chronic T7 compression fracture with sclerotic changes raising the possibility of underlying pathology/malignancy. There is also an acute to subacute nondisplaced T4 spinous process fracture. Bone scan: intense uptake involving T5 and T7, confirming acute/subacute nature of fractures. In review of the recent CT PA examination of the chest, both fractures appear acute/subacute, and there is diffuse sclerosis throughout the T5 vertebral body highly suspicious for pathological fracture. Acute hypoxic respiratory failure due to acute exacerbation of COPD, flu/RSV/Covid PCR negative treated with steroids and nebulizer. Urinary retention continue Aggarwal catheter, continue Flomax and finasteride, use blue catheter capped during day to empty bladder every 3-4 hours and continue overnight bag in the evening. He has an appointment with Urology 08/22. He is waiting on Oncology (Dr. Coker) appointment. Pt c/o Constipation; he has not had a Bowel Movement for 4 days. He has been taking Oxy for Pain at night. He has tried taking Miralax, SennoKot and Ducolax with no relief. [facility] Medical History (Updated 08/19/24 @ 14:36 by Li Maxwell NP) Constipation Colon cancer screening Obesity (BMI 30-39.9) Tobacco abuse Heart failure with reduced ejection fraction Adult general medical exam Screening for prostate cancer Ischemic cardiomyopathy Colonoscopy refused Umbilical hernia COPD (chronic obstructive pulmonary disease) Coronary artery disease GERD (gastroesophageal reflux disease) Hypercholesterolemia Insomnia Hypertension Surgical History (Updated 08/03/24 @ 11:49 by Cleo Coker MD) Hx of CABG Family History Father No problems noted. Mother No problems noted. Sister No problems noted. Sister No problems noted. Brother No problems noted. Brother Myocardial infarct Liver cancer Social History Household Members: Family Household Members Other:: brother Housing: House Do you presently have visiting nurse or other home services: No Alcohol intake: current Alcohol intake frequency: 3 or more drinks per day Alcohol type: beer Patient Tobacco Use Status: Former Tobacco user Tobacco use type: Cigarette e-Cigarette/Vaping Use: Never Used Second Hand Smoke Exposure: No Substance Use Type: Marijuana Advance Directives Date on File: 01/07/23 service: No Current occupational status: disabled Cognitive needs: No Hearing needs: No Vision needs: Yes Questionnaire Thrive Questionnaire Date Thrive assessed: 08/02/24 JUAN-7 AMB Questionnaire JUAN-7 Date JUAN - 7 assessed: 06/10/24 Source: Developed by Drs. Johnny Araiza, Tamiko Mcdonald, Negrito Maurer and colleagues, with an educational franklin from [employer]. Review of Systems Const All systems reviewed & are unremarkable except as noted in HPI and below Physical exam (Primary Care) Vital Signs: Last Vital Signs Temp 97.5 F 08/19/24 13:48 Pulse 82 08/19/24 13:48 BP 132/70 08/19/24 13:48 Pulse Ox 95 08/19/24 13:48 Oxygen Delivery Method Room Air 08/19/24 13:48 BMI result Body Mass Index 29.6 Tobacco/Smoking Status: Tobacco use Status Tobacco use date assessed 07/05/24 08/19/24 13:50 Patient Tobacco Use Status Former Tobacco user 08/19/24 13:50 Tobacco use type Cigarette 08/19/24 13:50 e-Cigarette/Vaping Use Never Used 08/19/24 13:50 Thrive Assessment: Date of Thrive Assessment Date Thrive assessed 08/02/24 08/19/24 13:50 Const General: no acute distress Nutritional Appearance: overweight Orientation/consciousness: patient oriented x3 Resp Effort & Inspection: normal respiratory effort Cardio Heart sounds: S1 normal heart sound present and S2 normal heart sound present GI Inspection: Yes distended and Yes obesity Palpation (GI): Soft to palpation, not firm, Tenderness to palpation present (GI) (Generalized Tenderness), no guarding, not rigid and No hepatosplenomegaly present Auscultation: normal bowel sounds Neuro General: patient oriented x3, gait normal and moves all extremities Psych Speech and movement: Normal speech and movement present Coding Level of Care Code TCM Mod MDM <= 7 Days Diagnoses Slow transit constipation K59.01 Constipation type: slow transit constipation Pathological fracture of vertebra due to other disease, initial encounter M84.68XA Encounter type: initial encounter Pathology associated with fracture: other disease Site of pathological fracture: vertebra Acute urinary retention R33.8 Time Spent (min) 20 Assessment & Plan Assessment & Plan (1) Constipation: Code(s): K59.00 - Constipation, unspecified Category: Medical Qualifiers: Constipation type: slow transit constipation Qualified Code(s): K59.01 - Slow transit constipation Plan: Ordered Golyte for Bowel Cleansing- Use as directed. liquid Diet for 12 hours (water, Soups, Gatorade etc). Substitute Oxy with NSAIDs and Acetaminophen to avoid Constipation. (2) Pathological fracture: Code(s): M84.40XA - Pathological fracture, unspecified site, initial encounter for fracture Category: Medical Qualifiers: Encounter type: initial encounter Pathology associated with fracture: other disease Site of pathological fracture: vertebra Qualified Code(s): M84.68XA - Pathological fracture in other disease, other site, initial encounter for fracture Plan: Patient to f/u with Oncology (Dr. Coker). Pt to call for an appointment. Questioning Pathological Fractures of Spine. (3) Acute urinary retention: Code(s): R33.8 - Other retention of urine Category: Medical Plan: Managed by Urology Appointment scheduled 08/22 for Aggarwal Cath removal. Medications: New peg 3350-electrolytes 240-22.72-6.72 -5.84 gram Drink 240 mL (8 oz) every 10 minutes until 4 L are consumed or the rectal effluent is clear. 240 mL PO Q10M 4,000 mL 0RF K59.01 - Slow transit constipation
[2024-08-19 13:48] VITALS: BP 132/70; PULSE 82; TEMP 36.4; O2SAT 95; BMI 29.6
--- OUTSIDE RECORDS SUMMARY | 2024-08-19 14:01 | XMS_ITS | Encounter Summary ---
Author Organization [facility] Address [address] [facility] [address] [place] [address] Phone Care Team Providers Care Combatant Diver Officer Name Role Phone Boy Jorge MD Primary Care Provider [phone] Reason for Visit * Reason Comments Med Refill Encounter Details Date Type Department Care Team (Late st Contact Info) Description 01/22/2024 Refill [facility] [address] [place] [phone] Bairon Redman MD [address] [facility] [address] [place] [phone] Social History Tobacco Use Types Packs/Day Years [...] on filedocumented in this encounter Care Teams Combatant Diver Officer Relationship Specialty Start Date End Date Boy Jorge MD [facility] [facility] [place] [address] [place] PCP - General Internal Medicine 09/02/21 documented as of this encounter
--- OUTSIDE RECORDS SUMMARY | 2024-08-19 14:01 | XMS_ITS | Encounter Summary ---
Author Organization [facility] Address [address] [facility] [address] [place] [address] Phone Care Team Providers Care It Security Consultant Name Role Phone Boy Jorge MD Primary Care Provider [phone] Reason for Visit * Reason Comments Med Refill Encounter Details Date Type Department Care Team (Late st Contact Info) Description 01/14/2024 Refill [facility] [address] [place] [phone] Bairon Redman MD [address] [facility] [address] [place] [phone] Social History Tobacco Use Types Packs/Day Years [...] on filedocumented in this encounter Care Teams It Security Consultant Relationship Specialty Start Date End Date Boy Jorge MD [facility] [place] [address] [place] PCP - General Internal Medicine 09/02/21 documented as of this encounter
--- OUTSIDE RECORDS SUMMARY | 2024-08-19 14:01 | XMS_ITS | Clinical Summary ---
Author Organization [facility] Address [address] [facility] [place] [address] Phone Care Team Providers Care Rn Charge Name Role Phone Boy Jorge MD Primary Care Provider [phone] Allergies No known active allergies Medications zolpidem [...] disease 10/08/2021 Atherosclerotic heart diseas e of picayune coronary artery with angina pectoris 10/08/2021 Gastroesophageal [...] Due Date Last Done Comments Pneumococcal Vaccine: 50+ Ye ars (1 of 2 - PCV) 1965 Pneumococcal Vaccine: Peds ( 0 to 5 Years) and At-Risk Patients (6 to 49 Years) (1 of 2 - PCV) 1965 Colorectal Cancer Screening: Annual FOBT 2008 Colorectal Cancer Screening: Colonoscopy 2008 Colorectal Cancer Screening: Sigmoidoscopy 2008 Influenza Vaccine (Season Ended) 2025 Hepatitis B Vaccine Aged Out No longe r eligible based on patient's age to complete this topic Insurance [place] Care Teams Rn Charge Relationship Specialty Start Date End Date Boy Jorge MD [facility] [place] [address] [place], [place] PCP - General Internal Medicine 09/02/21
== END 2024-08-19 15:08 | disposition home or self-care (01) ==
LOC: HO.HMCH 13:42
PROVIDERS: PCP Internal Medicine; Visit Provider Nurse Practitioner Family
DX: K59.01 Slow transit constipation (principal); M84.68XA Pathological fracture in other disease, other site, initial encounter for fracture; R33.8 Other retention of urine

== ENCOUNTER → 2024-08-19 13:41 | Outpatient (BNVA) | payer MEDICARE, MEDICAID, SELFPAY | PROVIDERS: PCP Internal Medicine; Visit Provider Nurse Practitioner Family | DX: K59.01 Slow transit constipation (principal); M84.68XA Pathological fracture in other disease, other site, initial encounter for fracture; R33.8 Other retention of urine | CPT/HCPCS: 99495 ==

== ENCOUNTER → 2024-08-22 08:42 | Outpatient (BNVA) | payer MEDICARE, MEDICAID, SELFPAY | PROVIDERS: PCP Internal Medicine; Visit Provider Urology | DX: R33.8 Other retention of urine (principal) | CPT/HCPCS: 51700; 51798 ==

== ENCOUNTER → 2024-09-09 13:45 | Outpatient (BNV) | payer MEDICARE, MEDICAID, SELFPAY | PROVIDERS: PCP Internal Medicine; Visit Provider Internal Medicine | DX: S22.000A Wedge compression fracture of unspecified thoracic vertebra, initial encounter for closed fracture (principal) | CPT/HCPCS: 99214; G2211 ==

== ENCOUNTER 2024-10-20 11:17 | Day surgery (SDC) | payer MEDICARE, MEDICAID, SELFPAY ==
--- OUTSIDE RECORDS SUMMARY | 2024-10-06 14:26 | XMS_ITS | Encounter Summary ---
Author Organization [facility] Address [address] [facility] [address] [place] [address] Phone Care Team Providers Care Hazardous Substances Scientist Name Role Phone Boy Jorge MD Primary Care Provider [phone] Reason for Visit * Reason Comments Med Refill Encounter Details Date Type Department Care Team (Late st Contact Info) Description 01/22/2024 Refill [facility] [address] [place] [phone] Bairon Redman MD [address] [facility] [address] [place] [phone] Social History Tobacco Use Types Packs/Day Years [...] on filedocumented in this encounter Care Teams Hazardous Substances Scientist Relationship Specialty Start Date End Date Boy Jorge MD [facility] [facility] [place] [address] [place] PCP - General Internal Medicine 09/02/21 documented as of this encounter
[2024-10-20] VITALS (17 sets, daily range): BP systolic 127–172; BP diastolic 64–98; PULSE 72–90; RESP 12–18; TEMP 36.6–36.9; O2SAT 95–100; BMI 27.5
--- NOTE | ~2024-10-20 | CT_ITS ---
PROCEDURE: CT GUIDED BIOPSY, BONE . T5 vertebra. CLINICAL INFORMATION: Compression fractures T5 and T7 vertebra COMPARISON: None available. TECHNIQUE: Following explaining CT fluoroscopy guided T5 vertebral body biopsy procedure, benefits and risk, a written consent was obtained. Patient was placed prone on fluoroscopy table and preliminary CT imaging was performed from T2 to mid T8 vertebra. Lead markers were placed along the posterior chest wall overlying the T5 vertebra and pedicle. Repeat imaging was performed and optimal marker was selected and marked on the skin. The marked area on the skin was cleaned and draped in usual sterile manner. 1% lidocaine was injected at puncture site. Through a small skin incision a 12 Romansh bone cutting needle was inserted from right para midline region to the pedicle and through the pedicle into the posterior margin of T5 vertebra. Coaxially a second needle was introduced and 2 pass bone marrow core biopsy was performed. Subsequently the guide needle was withdrawn and complete hemostasis achieved at puncture site. Patient did have significant pain during the exam. However significant amount of 1% lidocaine was administered at the puncture site. Patient underwent conscious sedation during the exam. Patient was monitored by IR nurse and IR physician during exam. This CT examination was performed using dose optimization techniques as appropriate, variously including the following: *Automated exposure control *Adjustment of mA and/or kV according to patient size (this includes techniques or standardized protocols for targeted exams where dose is matched to indication/reason for exam; i.e. extremities or head) *Use of iterative reconstruction technique FINDINGS/ CT/CT biopsy bone deep IMPRESSION: On preliminary CT imaging there is sclerosis and compression fracture deformity of the T5 vertebra. There is a T7 vertebral fracture as well without sclerosis. Successful CT fluoroscopy guided right transpedicular T5 vertebral body bone marrow for biopsy performed without immediate comp occasions. Electronically signed by: Wong Dennis MD 10/21/2024 07:29 AM EDT
[2024-10-20 11:53] LABS: MANUAL DIFF FLAG NO
[2024-10-20 11:58] LABS: Basophils Percent Auto 0.3 % (0-2); Eosinophils Absolute Auto 0.1 X10*3/uL (0.0-0.4); Eosinophils Percent Auto 0.7 % (0-4); Hematocrit 46.4 % (42.0-52.0); Hemoglobin 15.9 g/dl (14.0-18.0); Imm Gran Abs Auto 0.03 X10*3/uL (0.00-0.03); Imm Gran Pct Auto 0.3 % (0.0-0.4); Lymphocytes Absolute Auto 2.2 X10*3/uL (1.2-4.9); Lymphocytes Percent Auto 23.5 % (20-40); Mean Corpuscular HGB Conc 34.3 g/dl (31.0-36.0); Mean Corpuscular Hemoglobin 32.2 pg (27.0-33.0); Mean Corpuscular Volume 93.9 fL (80.0-98.0); Mean Platelet Volume 9.4 fL (9.4-12.4); Monocytes Absolute Auto 0.7 X10*3/uL (0.1-1.2); Monocytes Percent Auto 7.3 % (2-11); Neutrophils Absolute Auto 6.5 x10*3/uL (2.0-8.3); Neutrophils Percent Auto 67.9 % (45-73); Platelet Count 177 X10*3/uL (160-400); Red Blood Count 4.94 X10*6/uL (4.60-5.80); Red Cell Distribution Width 13.1 % (11.0-16.0); White Blood Count 9.5 X10*3/uL (4.8-10.8)
[2024-10-20 12:01] LABS: Prothrombin Time 11.7 SEC (10.9-12.4)
[2024-10-20 12:13] LABS: Anion Gap 15 (12-20); Blood Urea Nitrogen 12 mg/dL (9-16); Calcium 9.2 mg/dL (8.4-10.2); Carbon Dioxide 31 mmol/L (22-29); Chloride 96 mmol/L (96-108); Creatinine Clr Calc Pharmacy 73.1; Estimated Glomerular Filt Rate > 60; Glucose Random 122 mg/dL (60-115); Potassium 3.8 mmol/L (3.3-5.1); Sodium 138 mmol/L (135-145)
[2024-10-20] MEDS: fentaNYL citrate/PF 100 MCG/2 ML VIAL 25 MCG IVPUSH ×3 (13:37→13:55)
[2024-10-20] MEDS: Midazolam HCl 2 MG/2 ML VIAL 1 MG IVPUSH ×2 (13:37→13:45)
[2024-10-20] MEDS: Acetaminophen 325 MG TABLET 650 MG PO (14:20)
[2024-10-20] MEDS: oxyCODONE HCl Immed Release 5 MG TABLET PO (14:49)
[2024-10-20] MEDS: Lidocaine HCl 1 % MPF 30 ML VIAL 10 ML SUBCUT (15:39)
== END 2024-10-20 16:00 | disposition home or self-care (01) ==
PROVIDERS: Radiology Diagnostic Radiology; PCP Internal Medicine; Visit Provider Internal Medicine
DX: S22.000A Wedge compression fracture of unspecified thoracic vertebra, initial encounter for closed fracture (principal); M89.8X8 Other specified disorders of bone, other site; D16.6 Benign neoplasm of vertebral column; I25.10 Atherosclerotic heart disease of native coronary artery without angina pectoris; Z95.1 Presence of aortocoronary bypass graft; Z95.5 Presence of coronary angioplasty implant and graft; I25.5 Ischemic cardiomyopathy; I11.0 Hypertensive heart disease with heart failure; I50.20 Unspecified systolic (congestive) heart failure; E78.00 Pure hypercholesterolemia, unspecified; J44.9 Chronic obstructive pulmonary disease, unspecified; R25.1 Tremor, unspecified; K21.9 Gastro-esophageal reflux disease without esophagitis; E66.9 Obesity, unspecified; Z79.82 Long term (current) use of aspirin; Z79.899 Other long term (current) drug therapy; Z88.8 Allergy status to other drugs, medicaments and biological substances; Z87.891 Personal history of nicotine dependence; Z68.30 Body mass index [BMI] 30.0-30.9, adult
CPT/HCPCS: 20225; 36415; 77012; 80048; 85025; 85610; 88307; 88311; 88342; 99152; J2003; J2250; J3010

== ENCOUNTER → 2024-10-20 13:09 | Outpatient (BNV) | payer MEDICARE, MEDICAID, SELFPAY | PROVIDERS: PCP Internal Medicine; Visit Provider Radiology Diagnostic Radiology | DX: S22.050A Wedge compression fracture of T5-T6 vertebra, initial encounter for closed fracture (principal) | CPT/HCPCS: 20225; 77012; 99152 ==

== ENCOUNTER → 2024-10-21 10:17 | Outpatient (REF) | payer MEDICARE, MEDICAID, SELFPAY ==
--- NOTE | 2024-10-21 10:20 | CA_ITS ---
Transthoracic Echocardiogram Patient (Last, First, Middle): Johnny Pittman L Gender: Male Date of : 1960 Age: 64 Procedure Date: 10/21/2024 Procedure Type: Transthoracic Echocardiogram Location: OP Height: 177.8 cm Weight: 86.18 kg BSA: 2.04 m2 Heart Rate: bpm BP: 158 / 78 mmHg Burn Crew Member: TO Referring MD: Cleo Coker MD Symptoms: pre anesthesia eval Study Quality: Fair/Contrast Conclusions: - 1. Moderately reduced LV ejection fraction of 35-40% with regional wall motion abnormality consistent with ischemic cardiomyopathy with grade 1 diastolic dysfunction 2. Cardiac valvular Dopplers within normal limits 3. Normal measured RV systolic pressure 4. No gross pericardial effusion Findings Procedure Information Contrast agent, definity, is being given per protocol without apparent complications. Left Ventricle Normal left ventricular cavity size. There is normal left ventricular wall thickness. The left ventricular systolic function is moderately decreased. Spectral Doppler is indicative of an impaired relaxation filling pattern. E/E prime ratio is <8, consistent with normal filling pressures. Evidence suggests grade I (mild) diastolic dysfunction. Wall Motion Rest Echo Findings The apical inferior, apical septum, and basal anteroseptal segments are hypokinetic. The inferoseptal wall, the basal inferior, mid inferior, mid anteroseptal, and basal inferolateral segments are akinetic. All other scored wall segments showed normal motion. Right Ventricle Normal right ventricular cavity size. There is moderate to severely decreased right ventricular systolic function. Atria The left atrium is normal in size. Interatrial shunt cannot be excluded. The right atrium was not well visualized. Aortic Valve The aortic valve was not well visualized. There is no aortic valve stenosis. There is no aortic valve regurgitation. Mitral Valve Likely normal mitral valve structure and function. There is trace mitral valve regurgitation. There is no mitral valve stenosis. Pulmonic Valve The pulmonic valve was not well visualized. Tricuspid Valve Likely normal tricuspid valve structure and function. There is mild tricuspid valve regurgitation. The right ventricular systolic pressure is normal. The right ventricular systolic pressure is 33 mmHg. Normal right atrial pressure. There is no evidence of pulmonary hypertension. Great Vessels The aorta was not well visualized. The pulmonary artery was not well visualized. There is no dilatation of the ascending aorta measuring 3.00 cm. Venous The inferior vena cava is normal in size and collapses greater than 50% with inspiration. Pericardium/Pleural There is no evidence of pericardial effusion. Prior Study Comparison Changes noted compared to prior study dated: 09/18/2023. LV function maybe marginally improved. Measurements 2D Linear Measurements IVSd: 0.95 0.6-0.9/0.6-1.0 cm LVIDd: 5.38 3.9-5.3/4.2-5.9 cm LVIDd Index: 2.64 2.4-3.2/2.2-3.1 cm/m2 LVIDs: 4.42 2.0-3.6 cm LVPWd: 0.78 0.7-1.1 cm LV Mass: 212.17 67-162/88-224 g LV Mass Index: 104.00 43-95/49-115 g/m2 LVOT Diam: 2.40 3.0+(-)1.3 cm 2D Systolic Function EF 4C: 35.80 >55% EF 2C: 33.50 >55% EF BiP: 36.70 >55% Mitral Valve MV Pk E: 0.33 MV PK A: 0.69 MV Decel Time: 132.00 E/A: 0.50 E'Lateral: 6.74 E'Medial: 4.03 E/E' Med: 8.20 E/E' Lat: 4.90 PHT: 39.00 MVA PHT: 5.64 Decel [place]: 2.50 Aortic Valve AoV Pk Chinmay: 1.06 AoV Mn Chinmay: 0.69 AoV VTI: 0.16 AoV Pk Grad: 4.00 Aov Mn Grad: 2.00 DANETTE Cont.VTI: 3.63 LVOT LVOT Pk Chinmay: 0.91 LVOT Mn Chinmay: 0.55 LVOT VTI: 0.13 LVOT Pk Grad: 3.00 LVOT Mn Grad: 1.00 LVOT Diam: 2.40 LVOT Area: 4.52 Diastolic Function MV Pk E: 0.33 MV Pk A: 0.69 E/A: 0.50 E'Medial: 4.03 E/E' Med: 8.20 E' Laterial: 6.74 E/E' Lat: 4.90 Right Ventricle TAPSE (mm): 11.10 TVS' Chinmay: 7.83 Tricuspid Valve TR Pk Chinmay: 2.48 TR Pk Grad: 25.00 RA Press: 8.00 RVSP: 33.00 Great Vessels Aorta Sinus of Valsalva: 3.01 2.0-3.5 cm Ao Asc: 3.00 2.1-3.4 cm Updated in Other Vendor System with Status of Final Ian Gallardo MD electronically signed on 10/21/2024 1:05:22 PM with status of Final
--- OUTSIDE RECORDS SUMMARY | 2024-10-21 11:15 | XMS_ITS | Encounter Summary ---
Author Organization [facility] Address [address] [facility] [address] [place] [address] Phone Care Team Providers Care Instructional Specialist Name Role Phone Boy Jorge MD Primary Care Provider [phone] Reason for Visit * Reason Comments Med Refill Encounter Details Date Type Department Care Team (Late st Contact Info) Description 01/22/2024 Refill [facility] [address] [place] [phone] Bairon Redman MD [address] [facility] [address] [place] [phone] Social History Tobacco Use Types Packs/Day Years [...] on filedocumented in this encounter Care Teams Instructional Specialist Relationship Specialty Start Date End Date Boy Jorge MD [facility] [place] [address] [facility] [address] [place] PCP - General Internal Medicine 09/02/21 documented as of this encounter
== END ==
LOC: HO.CARD 10:17
PROVIDERS: Visit Provider Internal Medicine
DX: I25.5 Ischemic cardiomyopathy (principal)
CPT/HCPCS: 93306; Q9957

== ENCOUNTER → 2024-10-21 10:20 | Outpatient (BNV) | payer MEDICARE, MEDICAID, SELFPAY | PROVIDERS: Visit Provider Internal Medicine Cardiovascular Disease | DX: I51.89 Other ill-defined heart diseases (principal); I25.5 Ischemic cardiomyopathy | CPT/HCPCS: 93306 ==

== ENCOUNTER → 2024-10-24 11:48 | Day surgery (SDC) | payer MEDICARE, MEDICAID, SELFPAY ==
--- OUTSIDE RECORDS SUMMARY | 2024-10-11 10:19 | XMS_ITS | Encounter Summary ---
Author Organization [facility] Address [address] [facility] [address] [place] [address] Phone Care Team Providers Care Applicator Sprayer Name Role Phone Boy Jorge MD Primary Care Provider Reason for Visit * Reason Comments Med Refill Encounter Details Date Type Department Care Team (Late st Contact Info) Description 01/22/2024 Refill [facility] [address] [place] [phone] Bairon Redman MD [address] [facility] [address] [place] [phone] Social History Tobacco Use Types Packs/Day Years [...] on filedocumented in this encounter Care Teams Applicator Sprayer Relationship Specialty Start Date End Date Boy Jorge MD [facility] [facility] [place] [address] [place] PCP - General Internal Medicine 09/02/21 documented as of this encounter
--- NOTE | 2024-10-21 13:28 | HO.ANESPROP2 ---
HPI - Anesthesia Eval Consult details Narrative: 64yo M for T5 Kyphoplasty s/p CT guided biopsy from T5 site 10/20/24 - pathology pending admitted at [facility] on 08/01 - 08/10 for Intractable back pain due to T5 and T7 compression fracture, Asymptomatic choledocholithiasis, Acute hypoxic respiratory failure due to acute COPD exacerbation, Alcohol use disorder and Acute urinary retention. CTA of the chest negative for any aortic dissection or aneurysm. No PE identified. There is left lower lobe pleural parenchymal scarring but no pneumonia or effusion. There is an acute to subacute T5 compression fracture and subacute to chronic T7 compression fracture with sclerotic changes raising the possibility of underlying pathology/malignancy. There is also an acute to subacute nondisplaced T4 spinous process fracture. Bone scan: intense uptake involving T5 and T7, confirming acute/subacute nature of fractures. In review of the recent CT PA examination of the chest, both fractures appear acute/subacute, and there is diffuse sclerosis throughout the T5 vertebral body highly suspicious for pathological fracture. Acute hypoxic respiratory failure due to acute exacerbation of COPD, flu/RSV/Covid PCR negative treated with steroids and nebulizer. Per 09/2024 Oncology note, pt has abstained from ETOH since admission. Was drinking 6 pack daily prior. Follows [facility] Cardiology for CAD s/p GA, circumflex stenting in 2009, unstable angina, LAD stenting in 2011. Persistent significant angina with abnormal stress test leading to 3 vessel coronary artery bypass grafting in 2012; Ischemic CMP Last office visit 05/2024 with plan for cardiac cath, but pt rescheduled multiple times and then admitted. PMFSH Active Problems Active Problems: All Active Problems Constipation (Acute) Alcohol use disorder, moderate, dependence (Acute) Acute urinary retention (Acute) Choledocholithiasis (Acute) Pathological fracture (Acute) Compression fracture of body of thoracic vertebra (Acute) Back pain (Acute) COPD (chronic obstructive pulmonary disease) (Acute) Rib pain (Acute) Cough (Acute) Positive colorectal cancer screening using Cologuard test (Acute) Colon cancer screening (Acute) Ischemic cardiomyopathy (Acute) COPD (chronic obstructive pulmonary disease) (Acute) Elevated blood sugar (Acute) Hypoxia (Acute) COVID-19 (Acute) Cataract (Acute) Preoperative clearance (Acute) Verruca (Acute) Hypertension (Acute) Blurry vision, right eye (Acute) Overweight (BMI 25.0-29.9) (Acute) GERD (gastroesophageal reflux disease) (Acute) Chronic kidney disease (CKD) (Acute) Coronary artery disease (Acute) Alcohol abuse (Acute) Insomnia (Acute) Anemia (Acute) Impaired glucose tolerance (Acute) Hypercholesterolemia (Acute) Past Medical History Medical History Constipation Colon cancer screening Obesity (BMI 30-39.9) Tobacco abuse Heart failure with reduced ejection fraction Adult general medical exam Screening for prostate cancer Ischemic cardiomyopathy Colonoscopy refused Umbilical hernia COPD (chronic obstructive pulmonary disease) Coronary artery disease GERD (gastroesophageal reflux disease) Hypercholesterolemia Insomnia Hypertension Family History Family History Father No problems noted. Mother No problems noted. Sister No problems noted. Sister No problems noted. Brother No problems noted. Brother Myocardial infarct Liver cancer Surgical History Surgical History Hx of CABG Social History Social History Household Members: Family Household Members Other:: brother Housing: House Do you presently have visiting nurse or other home services: No Alcohol intake: current Alcohol intake frequency: 3 or more drinks per day Alcohol type: beer Patient Tobacco Use Status: Former Tobacco user Tobacco use type: Cigarette e-Cigarette/Vaping Use: Never Used Second Hand Smoke Exposure: No Substance Use Type: Marijuana Advance Directives Date on File: 01/07/23 service: No Current occupational status: disabled Cognitive needs: No Hearing needs: No Vision needs: Yes Meds Allergies Allergy/AdvReac Type Severity Reaction Status Date / Time ARB-Angiotensin Receptor AdvReac Severe STANFORD Verified 08/19/24 13:54 Antagonist MALVIN Inhibitors AdvReac Intermediate [place] Verified 08/19/24 13:54 Home Medications ?Medication ?Instructions ?Recorded ?Confirmed ?Last Taken ?Type aspirin 81 mg tablet,delayed 81 mg PO DAILY 09/10/21 09/09/24 08/01/24 History release melatonin 10 mg tablet 10 mg PO BEDTIME 08/01/24 09/09/24 Unknown History Exam Pertinent Lab Results Pertinent Lab Results: Laboratory Tests 10/20/24 11:48 WBC 9.5 Hgb 15.9 D Hct 46.4 Plt Count 177 Sodium 138 Potassium 3.8 Chloride 96 Carbon Dioxide 31 H BUN 12 Creatinine 1.04 Narrative Narrative: ECHO 10/2024 Conclusions: - 1. Moderately reduced LV ejection fraction of 35-40% with regional wall motion abnormality consistent with ischemic cardiomyopathy with grade 1 diastolic dysfunction 2. Cardiac valvular Dopplers within normal limits 3. Normal measured RV systolic pressure 4. No gross pericardial effusion EKG 07/2024 Vent. Rate : 98 BPM Atrial Rate : 98 BPM P-R Int : 168 ms QRS Dur : 148 ms QT Int : 386 ms P-R-T Axes : 57 74 65 degrees QTcB Int : 492 ms Sinus rhythm with marked sinus arrhythmia Right bundle branch block Inferior infarct (cited on or before 19-Jan-2023) Abnormal ECG When compared with ECG of 29-May-2024 10:54, No significant change was found NM julia perf SPECT rest & str 04/2024 Impression: 1. Myocardial perfusion imaging study shows transmural infarction involving mid to distal part of anterior wall; basal anterior septum; basal to mid part of inferior/inferolateral wall. 2. Gated LVEF is 25% during stress and 31% rest. 3. Transient ischemic dilatation not present, but LV chamber is dilated. CXR 07/2024 XR chest 1V IMPRESSION: Subsegmental atelectasis versus scarring, left lung base. Chronic lung disease. Abdominal MRI 07/2024 IMPRESSION: 1. Dilated common bile duct with mild intrahepatic biliary ductal dilatation. Choledocholithiasis present in the distal common bile duct measuring 3 mm. 2. No evidence of pancreatitis. No evidence of cholecystitis. 3. Hemangioma present within segment II of the liver measuring 2.5 cm. 4. Bilateral simple renal cysts. Assessment and Plan Assessment Anesthesia Assessment: Chart Reviewed
[2024-10-23 10:35] VITALS: BMI 29.6
[2024-10-24 11:53] VITALS: BP 159/81; PULSE 90; RESP 20; TEMP 36.9; O2SAT 94; BMI 29.7
[2024-10-24] MEDS: Albuterol Sulfate (0.083%) 2.5 MG/3 ML VIAL.NEB INHALE (12:16)
[2024-10-24] MEDS: Lactated Ringers 1,000 ML 50 ML IVCONT (12:16)
--- NOTE | 2024-10-24 12:28 | PC.NURSE ---
resp treatment given for left upper lobe wheezing . pt moving air better after resp tx no wheezing heard resp easy and reg
--- NOTE | 2024-10-24 14:03 | PC.NURSE ---
pt denies pain pain with excess movement 06/20 radiologist at bedside pt sts doesnt need surgery surgery cancelled
== END ==
LOC: HO.SSS 11:49
PROVIDERS: PCP Internal Medicine; Visit Provider Internal Medicine
DX: S22.050A Wedge compression fracture of T5-T6 vertebra, initial encounter for closed fracture (principal); Z53.8 Procedure and treatment not carried out for other reasons; J44.9 Chronic obstructive pulmonary disease, unspecified; I13.0 Hypertensive heart and chronic kidney disease with heart failure and stage 1 through stage 4 chronic kidney disease, or unspecified chronic kidney disease; I50.20 Unspecified systolic (congestive) heart failure; N18.9 Chronic kidney disease, unspecified; Z87.891 Personal history of nicotine dependence; Z88.8 Allergy status to other drugs, medicaments and biological substances; Z79.82 Long term (current) use of aspirin; Z79.899 Other long term (current) drug therapy
CPT/HCPCS: J0690

== ENCOUNTER 2024-12-20 13:35 | Outpatient (AMB) | payer MEDICARE, MEDICAID, SELFPAY ==
--- NOTE | 2024-12-20 13:44 | MHC.OFFVIS ---
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: No Allergies ARB-Angiotensin Receptor Antagonist Adverse Reaction (Severe, Verified 08/19/24 13:54) ST[place]FORD MALVIN Inhibitors Adverse Reaction (Intermediate, Verified 08/19/24 13:54) [place]ORD Medication List - Last Reconciled 12/20/24 by Ian Gallardo MD albuterol sulfate 90 mcg/actuation (Ventolin HFA) 2 puffs inhalation Q6H PRN amlodipine 5 mg PO DAILY aspirin 81 mg PO DAILY cyclobenzaprine 10 mg PO BID PRN ezetimibe 10 mg PO DAILY fluticasone propion-salmeterol 250-50 mcg/dose (Wixela Inhub) 1 inh inhalation BID furosemide 40 mg PO DAILY isosorbide mononitrate ER 30 mg PO DAILY 90 days melatonin 10 mg PO BEDTIME metoprolol succinate ER 50 mg PO DAILY 90 days omeprazole 20 mg PO BID@0630,1630 rosuvastatin 40 mg PO DAILY 90 days sennosides-docusate sodium 8.6-50 mg (Senna Plus) 2 tabs PO BID HPI Comments Details: Johnny comes for follow-up. He said he has been doing well. He was admitted few months ago with what appears to be spine issues. 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 He is doing well. He has not had any cardiac symptoms. Denies any exertional chest pain. Denies any worsening shortness of breath, orthopnea, PND, leg edema. Denies any palpitations, lightheadedness. Takes all his medications. Unfortunately continues to drink 4 beers a day. No smoking. Denies any symptoms of claudication. He underwent a recent bone marrow, as per him this was within acceptable limits [facility] Medical History Heart failure with reduced ejection fraction Constipation Colon cancer screening Obesity (BMI 30-39.9) Tobacco abuse Adult general medical exam Screening for prostate cancer Ischemic cardiomyopathy Colonoscopy refused Umbilical hernia COPD (chronic obstructive pulmonary disease) Coronary artery disease GERD (gastroesophageal reflux disease) Hypercholesterolemia Insomnia Hypertension Surgical History Hx of CABG Family History Father No problems noted. Mother No problems noted. Sister No problems noted. Sister No problems noted. Brother No problems noted. Brother Myocardial infarct Liver cancer Social History Household Members: Family Household Members Other:: brother Housing: House Do you presently have visiting nurse or other home services: No Alcohol intake: current Alcohol intake frequency: 0-2 drinks per day Alcohol type: beer Patient Tobacco Use Status: Former Tobacco user Tobacco use type: Cigarette e-Cigarette/Vaping Use: Never Used Second Hand Smoke Exposure: No Substance Use Type: Marijuana Advance Directives Date on File: 01/07/23 service: No Current occupational status: disabled Cognitive needs: No Hearing needs: No Vision needs: Yes Review of Systems Const Denies chills, Denies fatigue, Denies fever(s), Denies frequent falls, Denies weakness, Denies weight gain and Denies weight loss ENT Denies dizziness Card Denies chest pain, Denies leg edema, Denies lightheadedness, Denies palpitations, Denies dyspnea, Denies dyspnea on exertion, Denies orthopnea and Denies other (loss of consciousness) Resp Denies cough, Denies dyspnea and Denies dyspnea on exertion GI Denies hematochezia and Denies change in stool character Musc Denies abnormal gait, Denies muscle weakness, Denies numbness, Denies radiating pain into limb and Denies tingling Neuro Denies Abnormal speech present, Denies abnormal gait, Denies dizziness, Denies frequent falls, Denies numbness, Denies tingling and Denies weakness Endo Denies fatigue and Denies palpitations Physical Exam Vital Signs: Last Vital Signs Pulse 75 12/20/24 13:45 BP 120/76 12/20/24 13:45 BMI result Body Mass Index 31.5 Const General: cooperative, comfortable, no acute distress, alert and awake Nutritional Appearance: overweight Orientation/consciousness: patient oriented x3 Limitations: no limitations HEENT Head: Yes atraumatic Neck Neck: Yes trachea midline, Yes supple and Yes no JVD Carotids: no bruits Chest Chest palpation & inspection: normal inspection of the chest Resp Effort & Inspection: normal respiratory effort Auscultation: clear to auscultation bilaterally, no rales, wheezes scattered wheezes and diminished lung sounds Cardio Jugular venous distension: no JVD Palpation: normal PMI Rate: regular rate Rhythm: regular rhythm Heart sounds: S1 normal heart sound present, S2 normal heart sound present, no click, no gallops, no murmurs and no rubs GI Auscultation: normal bowel sounds Skin General skin exam: no rashes or lesions noted Neuro General: patient oriented x3 and no focal motor deficits Speech: No Abnormal speech present Extrem General: Yes no clubbing, cyanosis or edema and Yes pedal edema Psych Appearance: grossly normal Assessment & Plan Assessment & Plan (1) Heart failure with reduced ejection fraction: Code(s): I50.20 - Unspecified systolic (congestive) heart failure Category: Medical Plan: Heart failure with reduced ejection fraction with myocardial perfusion imaging showing mostly infarcted myocardium without ischemia. Moderate LV systolic dysfunction noted with LVEF of about 35%. Will continue monitor. Needs better neurohormonal modulation. He does have prior history of STANFORD but this was in the setting of using NSAIDs and lisinopril. Advised to stay off NSAIDs. Will challenge again with valsartan 80 mg daily. Follow-up BNP in 1 week's time. Will reduce amlodipine to 2.5 mg daily. Continue neurohormonal modulation with metoprolol. Continue isosorbide. Continue current diuretic regimen. Daily weight monitoring avoidance salt loading was discussed. Additional diuretics as need be. Abstinence from alcohol was discussed. (2) Coronary artery disease: Comment: [place], circumflex stenting in 2009, unstable angina, LAD stenting in 2011. Persistent significant angina with abnormal stress test leading to 3 vessel coronary artery bypass grafting in 2012 echocardiogram September 2021Normal left ventricular cavity size. There is mildly increased left ventricular wall thickness. The left ventricular systolic function is mildly decreased. The visually estimated ejection fraction is between 40-45%. - E/E prime ratio is between 8 and 15 consistent with indeterminate filling pressures. - The basal inferior and mid inferior segments are akinetic. - Normal right ventricular cavity size and systolic function. Code(s): I25.10 - Atherosclerotic heart disease of [place] coronary artery without angina pectoris Category: Medical Qualifiers: Coronary Disease-Associated Artery/Lesion type: [place] artery [place] vs. transplanted heart: [place] heart Associated angina: without angina Qualified Code(s): I25.10 - Atherosclerotic heart disease of [place] coronary artery without angina pectoris Plan: CAD with remote coronary artery bypass grafting with no symptoms of angina at this point in time. Mostly infarcted myocardium seen on the myocardial perfusion imaging. Will reserve cardiac catheterization for worsening LV ejection fraction or recurrent anginal symptoms. Continue current dual antianginal therapy with isosorbide and metoprolol. Currently on aspirin therapy which should be continued for life. Continue high-intensity statin therapy. Follow-up lipid panel in near future. Target goal LDL less than 70 mg/dL. Continue aggressive blood pressure control which is currently well optimized. Follow up in 6 months time, sooner p.r.n.. Thank you for allowing me to partake in his care Orders: Orders Basic Metabolic Panel 1 Week I50.20 - Unspecified systolic (congestive) heart failure Lipid Panel 1 Week I25.10 - Atherosclerotic heart disease of [place] coronary artery without angina pectoris, I50.20 - Unspecified systolic (congestive) heart failure Medications: New valsartan (Diovan) 80 mg PO DAILY 30 tabs 1RF Changed From amlodipine 5 mg PO DAILY 90 tabs 0RF To amlodipine 2.5 mg (1/2 x 5 mg) PO DAILY 90 tabs 0RF Refilled furosemide 40 mg PO DAILY 30 tabs 2RF J43.1 - Panlobular emphysema Coding Level of Care Code Est Pt Level 4 (47181) Complex EM visit Add On G2211 Diagnoses Heart failure with reduced ejection fraction I50.20 Coronary artery disease involving [place] coronary artery of [place] heart without angina pectoris I25.10 Coronary Disease-Associated Artery/Lesion type: [place] artery [place] vs. transplanted heart: [place] heart Associated angina: without angina
[2024-12-20 13:45] VITALS: BP 120/76; PULSE 75; BMI 31.5
--- OUTSIDE RECORDS SUMMARY | 2024-12-20 14:28 | XMS_ITS | Encounter Summary ---
Author Organization [facility] Address [address] [facility] [address] [place] [address] Phone Care Team Providers Care Search Director Name Role Phone Boy Jorge MD Primary Care Provider [phone] Reason for Visit * Reason Comments Med Refill Encounter Details Date Type Department Care Team (Late st Contact Info) Description 01/22/2024 Refill [facility] [address] [place] [phone] Bairon Redman MD [address] [facility] [address] [place] [phone] Social History Tobacco Use Types Packs/Day Years [...] on filedocumented in this encounter Care Teams Search Director Relationship Specialty Start Date End Date Boy Jorge MD [place] [facility] [place] [address] [place] PCP - General Internal Medicine 09/02/21 documented as of this encounter
== END 2024-12-20 14:14 | disposition home or self-care (01) ==
LOC: HO.HCS 13:36
PROVIDERS: PCP Internal Medicine; Visit Provider Internal Medicine Cardiovascular Disease
DX: I50.20 Unspecified systolic (congestive) heart failure (principal); I25.10 Atherosclerotic heart disease of native coronary artery without angina pectoris
CPT/HCPCS: 99214; G2211

== ENCOUNTER → 2024-12-20 13:35 | Outpatient (BNVA) | payer MEDICARE, MEDICAID, SELFPAY | PROVIDERS: PCP Internal Medicine; Visit Provider Internal Medicine Cardiovascular Disease | DX: I11.0 Hypertensive heart disease with heart failure (principal); I50.20 Unspecified systolic (congestive) heart failure; I25.10 Atherosclerotic heart disease of native coronary artery without angina pectoris | CPT/HCPCS: 99212 ==

== ENCOUNTER 2024-12-30 06:25 | Outpatient (REF) | payer MEDICARE, MEDICAID, SELFPAY ==
--- OUTSIDE RECORDS SUMMARY | 2024-12-30 06:28 | XMS_ITS | Encounter Summary ---
Author Organization [facility] Address [address] [facility] [address] [place] [address] Phone Care Team Providers Care Inspector Outside Production Name Role Phone Boy Jorge MD Primary Care Provider [phone] Reason for Visit * Reason Comments Med Refill Encounter Details Date Type Department Care Team (Late st Contact Info) Description 01/22/2024 Refill [facility] [address] [place] [phone] Bairon Redman MD [address] [facility] [address] [place] [phone] Social History Tobacco Use Types Packs/Day Years [...] on filedocumented in this encounter Care Teams Inspector Outside Production Relationship Specialty Start Date End Date Boy Jorge MD [place] [facility] [place] [address] [facility] [place] PCP - General Internal Medicine 09/02/21 documented as of this encounter
[2024-12-30 07:19] LABS: Hematocrit 41.0 % (42.0-52.0); Hemoglobin 13.7 g/dl (14.0-18.0); Mean Corpuscular HGB Conc 33.4 g/dl (31.0-36.0); Mean Corpuscular Hemoglobin 33.4 pg (27.0-33.0); Mean Corpuscular Volume 100.0 fL (80.0-98.0); NRBC Abs Auto 0.000 X10*3/uL (0.0-0.012); NRBC Pct Auto 0.0 /100WBC (0.0-0.2); Platelet Count 146 X10*3/uL (160-400); Red Blood Count 4.10 X10*6/uL (4.60-5.80); White Blood Count 6.6 X10*3/uL (4.8-10.8)
[2024-12-30 07:37] LABS: INTERNATIONAL NORM RATIO 1.0 (0.9-1.1); Prothrombin Time 11.5 SEC (10.9-12.4)
[2024-12-30 07:41] LABS: Anion Gap 15 (12-20); Blood Urea Nitrogen 21 mg/dL (9-16); Calcium 9.8 mg/dL (8.4-10.2); Carbon Dioxide 28 mmol/L (22-29); Chloride 99 mmol/L (96-108); Cholesterol 136 mg/dL (<200); Estimated Glomerular Filt Rate 33; HDL Cholesterol 48 mg/dL (>40); Potassium 4.3 mmol/L (3.3-5.1); Sodium 138 mmol/L (135-145); Triglycerides 218 mg/dL (<150)
== END 2024-12-30 06:26 | disposition home or self-care (01) ==
LOC: HO.LAB 06:25
PROVIDERS: PCP Internal Medicine; Visit Provider Internal Medicine Cardiovascular Disease
DX: I25.10 Atherosclerotic heart disease of native coronary artery without angina pectoris (principal); I50.20 Unspecified systolic (congestive) heart failure; I25.5 Ischemic cardiomyopathy
CPT/HCPCS: 36415; 80048; 80061; 85027; 85610

== ENCOUNTER 2025-01-11 06:38 | Outpatient (REF) | payer MEDICARE, MEDICAID, SELFPAY ==
--- OUTSIDE RECORDS SUMMARY | 2025-01-11 06:41 | XMS_ITS | Clinical Summary ---
Author Organization [facility] Address [address] [facility] [address] [facility] [address] Phone Care Team Providers Care Spoilage Worker Name Role Phone Boy Jorge MD Primary Care Provider Allergies No known active allergies Medications zolpidem [...] disease 10/08/2021 Atherosclerotic heart diseas e of [place] coronary artery with angina pectoris 10/08/2021 Gastroesophageal [...] Ye ars (1 of 2 - PCV) 1978 Colorectal Cancer Screening: Annual FOBT 2008 Colorectal Cancer Screening: Colonoscopy 2008 Colorectal Cancer Screening: Sigmoidoscopy 2008 Influenza Vaccine (#1) 2025 Hepatitis B Vaccine Aged Out No longe r eligible based on patient's age to complete this topic Insurance Medicare Medicaid [place] Medicare Medicaid [place] Care Teams Spoilage Worker Relationship Specialty Start Date End Date Boy Jorge MD [address] [place], [place] PCP - General Internal Medicine 09/02/21
--- OUTSIDE RECORDS SUMMARY | 2025-01-11 06:41 | XMS_ITS | Encounter Summary ---
Author Organization [facility] Address [address] [facility] [address] [place] [address] Phone Care Team Providers Care Policy Advisor Name Role Phone Boy Jorge MD Primary Care Provider [phone] Reason for Visit * Reason Comments Med Refill Encounter Details Date Type Department Care Team (Late st Contact Info) Description 01/22/2024 Refill [facility] [address] [place] [phone] Bairon Redman MD [address] [facility] [address] [place] [phone] Social History Tobacco Use Types Packs/Day Years [...] on filedocumented in this encounter Care Teams Policy Advisor Relationship Specialty Start Date End Date Boy Jorge MD [place] [facility] [place] [address] [place] PCP - General Internal Medicine 09/02/21 documented as of this encounter
--- OUTSIDE RECORDS SUMMARY | 2025-01-11 06:41 | XMS_ITS | Encounter Summary ---
Author Organization [facility] Address [address] [facility] [address] [place] [address] Phone Care Team Providers Care Fine Arts Model Name Role Phone Boy Jorge MD Primary Care Provider Reason for Visit * Reason Comments Med Refill Encounter Details Date Type Department Care Team (Late st Contact Info) Description 01/14/2024 Refill [facility] [address] [place] [phone] Bairon Redman MD [address] [facility] [address] [place] [phone] Social History Tobacco Use Types Packs/Day Years [...] on filedocumented in this encounter Care Teams Fine Arts Model Relationship Specialty Start Date End Date Boy Jorge MD [place] [facility] [place] [address] [facility] [address] [address] [place] PCP - General Internal Medicine 09/02/21 documented as of this encounter
[2025-01-11 08:19] LABS: Anion Gap 15 (12-20); Blood Urea Nitrogen 15 mg/dL (9-16); Calcium 9.3 mg/dL (8.4-10.2); Carbon Dioxide 30 mmol/L (22-29); Chloride 96 mmol/L (96-108); Cholesterol 128 mg/dL (<200); Estimated Glomerular Filt Rate 49; HDL Cholesterol 52 mg/dL (>40); Potassium 3.2 mmol/L (3.3-5.1); Sodium 138 mmol/L (135-145); Triglycerides 143 mg/dL (<150)
== END 2025-01-11 06:39 | disposition home or self-care (01) ==
LOC: HO.LAB 06:38
PROVIDERS: PCP Internal Medicine; Visit Provider Internal Medicine Cardiovascular Disease
DX: I25.10 Atherosclerotic heart disease of native coronary artery without angina pectoris (principal); I25.5 Ischemic cardiomyopathy; I50.20 Unspecified systolic (congestive) heart failure
CPT/HCPCS: 36415; 80048; 80061

== ENCOUNTER 2025-01-24 23:26 | Emergency (ER) | payer MEDICARE, MEDICAID, SELFPAY ==
--- NOTE | ~2025-01-24 | XR_ITS ---
CLINICAL HISTORY: pian Lumbar Spine, 3 views COMPARISON: Portions of CT/IL/SR - CT ABDOMEN PELVIS W IV CON - 08/03/24 09:45 EDT FINDINGS: Age-indeterminate moderate T12 and mild L5 compression fractures, new since the prior study. No malalignment. Unremarkable soft tissues. Atherosclerosis. IMPRESSION: Age-indeterminate T12 and L5 compression fractures. Please correlate with pain in these areas. This document has been electronically signed by: Fausto Randle MD on 01/25/2025 03:01:26
[2025-01-24 23:33] VITALS: BP 188/96; PULSE 76; O2SAT 97
[2025-01-24 23:36] VITALS: BP 159/67; PULSE 70; RESP 18; TEMP 36.6; O2SAT 94; BMI 29.4
[2025-01-25] VITALS (7 sets, daily range): BP systolic 125–174; BP diastolic 53–68; PULSE 65–88; RESP 16–18; TEMP 36.2–36.6; O2SAT 91–95
--- OUTSIDE RECORDS SUMMARY | 2025-01-25 00:12 | XMS_ITS | Encounter Summary ---
Author Organization [facility] Address [address] [facility] [address] [place] [address] Phone Care Team Providers Care Hot Plate Plywood Press Offbearer Name Role Phone Boy Jorge MD Primary Care Provider [phone] Reason for Visit * Reason Comments Med Refill Encounter Details Date Type Department Care Team (Late st Contact Info) Description 01/22/2024 Refill [facility] [address] [place] [phone] Bairon Redman MD [address] [facility] [address] [place] [phone] Social History Tobacco Use Types Packs/Day Years [...] on filedocumented in this encounter Care Teams Hot Plate Plywood Press Offbearer Relationship Specialty Start Date End Date Boy Jorge MD [place] [facility] [place] [address] [place] PCP - General Internal Medicine 09/02/21 documented as of this encounter
--- OUTSIDE RECORDS SUMMARY | 2025-01-25 00:12 | XMS_ITS | Encounter Summary ---
Author Organization [facility] [place] Address [address] [facility] [address] [place] [address] Phone Care Team Providers Care Weed Eradicator Name Role Phone Boy Jorge MD Primary Care Provider [phone] Reason for Visit * Reason Comments Med Refill Encounter Details Date Type Department Care Team (Late st Contact Info) Description 01/14/2024 Refill [facility] [address] [place] [phone] Bairon Redman MD [address] [facility] [address] [place] [phone] Social History Tobacco Use Types Packs/Day Years [...] on filedocumented in this encounter Care Teams Weed Eradicator Relationship Specialty Start Date End Date Boy Jorge MD [place] [facility] [place] [address] [place] PCP - General Internal Medicine 09/02/21 documented as of this encounter
--- OUTSIDE RECORDS SUMMARY | 2025-01-25 00:12 | XMS_ITS | Clinical Summary ---
Author Organization [facility] Address [address] [facility] [address] [address] [facility] [place] [address] Phone Care Team Providers Care Systems Software Specialist Name Role Phone Boy Jorge MD Primary Care Provider [phone] Allergies No known active allergies Medications zolpidem [...] disease 10/08/2021 Atherosclerotic heart diseas e of [place] coronary artery with angina pectoris 10/08/2021 Gastroesophageal [...] to complete this topic Insurance Medicare Medicaid [place] Medicare Medicaid [place] Care Teams Systems Software Specialist Relationship Specialty Start Date End Date Boy Jorge MD [address] [place], [place] PCP - General Internal Medicine 09/02/21
--- NOTE | 2025-01-25 01:20 | ED_ITS ---
HPI - General Adult General Chief complaint: Back Pain/Injury Stated complaint: LOWER BACK PAIN Time Seen by Provider: 01/25/25 00:17 Source: patient, RN notes reviewed and old records reviewed Mode of arrival: EMS Limitations: no limitations History of Present Illness ED Provider: Angel HPI narrative: 64-year-old male with past medical history significant for COPD, not on oxygen, impaired fasting glucose, ischemic cardiomyopathy, GERD, chronic kidney disease, alcohol abuse, heart failure, constipation presents for evaluation of lower back pain. The patient has had pain for the last 10 days pain His symptoms started when he was moving an air conditioner unit from the window to the floor. He felt a pop when he was bending down to the ground. He has pain across his lower back. He did not fall His pain does not radiate pain He denies any weakness in his legs pain He has no numbness or tingling He does have a history of thoracic compression fractures from ?coughing. ? He has been taking Tylenol at home without any improvement His pain is 8/10 He has no urinary incontinence or retention. No bowel incontinence Related Data Home Medications ?Medication ?Instructions ?Recorded ?Confirmed aspirin 81 mg tablet,delayed 81 mg PO DAILY 09/10/21 0 12/20/24 release melatonin 10 mg tablet 10 mg PO BEDTIME 08/01/24 Previous Rx's ?Medication ?Instructions ?Recorded rosuvastatin 40 mg tablet 40 mg PO DAILY 90 days #90 t abs 05/02/24 fluticasone 250 mcg-salmeterol 50 1 inh inhalation BID #60 ea 07/05/24 mcg/dose blistr powdr for inhalation (Wixela Inhub) metoprolol succinate 50 mg 50 mg PO DAILY 90 days #90 tabs 07/17/24 tablet,extended release 24 hr sennosides 8.6 mg-docusate sodium 2 tab PO BID #120 ta bs 08/09/24 50 mg tablet (Senna Plus) isosorbide mononitrate 30 mg 30 mg PO DAILY 90 days #9 0 tabs 08/29/24 tablet,extended release 24 hr albuterol sulfate 90 mcg/actuation 2 puff inhalation Q 6H PRN 10/28/24 aerosol inhaler (Ventolin HFA) shortness of breath or wheezing #8.5 grams ezetimibe 10 mg tablet 10 mg PO DAILY #90 tabs 11/08 10/02 cyclobenzaprine 10 mg tablet 10 mg PO BID PRN for musc le spasm 01/11/25 #30 tabs furosemide 40 mg tablet 40 mg PO DAILY #30 tabs 08/02 omeprazole 20 mg capsule,delayed 20 mg PO BID@0630,163 0 #180 caps 01/11/25 release amlodipine 5 mg tablet 5 mg PO DAILY #90 tabs 01/13 cyclobenzaprine 10 mg tablet 10 mg PO TID PRN muscle s pasm #20 01/25/25 tabs oxycodone 5 mg tablet 5 mg PO Q6H PRN pain #12 tab s 01/25/25 Allergies Allergy/AdvReac Type Severity Reaction Status Date / Time ARB-Angiotensin Receptor AdvReac Severe [place]ORD Verified 01/24/25 23:39 Antagonist MALVIN Inhibitors AdvReac Intermediate [place]ORD Verified 01/24/25 23:39 Review of Systems Constitutional: Constitutional: Denies body ache(s), Denies chills, Denies fever(s) and Denies headache(s) Eyes: Eyes: Denies blurry vision ENT: Denies dizziness, Denies headache(s) and Denies neck pain Cardiovascular: Cardiovascular: Denies chest pain and Denies dyspnea on exertion Respiratory: Respiratory: Denies cough and Denies dyspnea on exertion Gastrointestinal: Gastrointestinal: Denies abdominal pain, Denies nausea and Denies vomiting Musculoskeletal: Musculoskeletal: Reports back pain, Denies muscle weakness, Denies neck pain, Denies numbness, Denies radiating pain into limb and Reports stiffness Integumentary/Breasts: Skin/Breast: Denies rash Neurologic: Denies dizziness, Denies headache(s) and Denies numbness Psychiatric: Psychiatric: Denies anxiety [facility] Past Medical History Medical History Heart failure with reduced ejection fraction Constipation Colon cancer screening Obesity (BMI 30-39.9) Tobacco abuse Adult general medical exam Screening for prostate cancer Ischemic cardiomyopathy Colonoscopy refused Umbilical hernia COPD (chronic obstructive pulmonary disease) Coronary artery disease GERD (gastroesophageal reflux disease) Hypercholesterolemia Insomnia Hypertension Surgical History Hx of CABG Family History Family History Father No problems noted. Mother No problems noted. Sister No problems noted. Sister No problems noted. Brother No problems noted. Brother Myocardial infarct Liver cancer Social History Social History Household Members: Family Household Members Other:: brother Housing: House Do you presently have visiting nurse or other home services: No Alcohol intake: current Alcohol intake frequency: 0-2 drinks per day Alcohol type: beer Patient Tobacco Use Status: Former Tobacco user Tobacco use type: Cigarette Smoked in Last 30 Days: No e-Cigarette/Vaping Use: Never Used Second Hand Smoke Exposure: No Use of substances other than those prescribed or required for medical reasons: No Substance Use Type: Marijuana Advance Directives: Yes Advance Directives on File: Yes Advance Directives Date on File: 01/07/23 service: No Current occupational status: disabled Cognitive needs: No Hearing needs: No Vision needs: Yes Physical Exam ED Vital Signs: Vital Signs - 24 hr 01/24/25 23:36 01/25/25 01:14 01/25/25 02:09 Temperature 98 F 98 F Pulse Rate 70 70 Respiratory Rate 18 18 16 Blood Pressure 159/67 H 174/57 H Pulse Oximetry 94 93 Oxygen Delivery Method Room Air Room Air 01/25/25 02:11 01/25/25 02:46 01/25/25 04:17 Temperature 97.9 F 97.2 F Pulse Rate 65 76 71 Respiratory Rate 18 18 16 Blood Pressure 150/63 H 125/53 L Pulse Oximetry 91 L 93 Oxygen Delivery Method Room Air Room Air 01/25/25 05:43 Temperature 97.4 F Pulse Rate 88 Respiratory Rate 18 Blood Pressure 173/66 H Pulse Oximetry 95 Oxygen Delivery Method Room Air BMI result Body Mass Index 29.4 Const General: healthy appearing, comfortable, no acute distress, alert and awake Nutritional Appearance: well nourished Orientation/consciousness: patient oriented x3 HENMT Head: Yes normocephalic and Yes atraumatic Eyes Eyelids: Yes eyelids normal Conjunctivae: conjunctivae normal Sclerae: sclerae normal Corneas: corneas normal Pupils: Equal, round and reactive pupils present EOM: EOMs intact bilaterally Neck Neck: Yes full ROM Resp Effort & Inspection: normal respiratory effort, able to speak in complete sentences and not labored GI Inspection: No distended Palpation (GI): Soft to palpation, not firm, nontender, no guarding and not rigid Back/Spine/Pelvis Other: The patient has vague tenderness across the lumbar paraspinous region. No focal vertebral tenderness, no step-offs or deformities. Straight leg raise negative bilaterally. Skin General skin exam: elasticity normal Neuro General: patient oriented x3 Cranial nerves: Yes Equal, round and reactive pupils present and Yes Bilaterally intact EOM present Cognition (Neuro): normal cognition Motor exam (neuro): 5/5 motor strength present throughout Extrem Other: Moving all extremities well without any obvious deformities Course Reevaluation(s) Reevaluation #1: 1:25 AM 01/25/2025 (Jelena MCGHEE): The patient was signed out to this provider at shift change. In summary the patient is a 64-year-old male presenting to the ED for evaluation of worsening low back pain since he lifted a heavy air conditioner on the 8th of this month. The patient reports a history of previous vertebral fractures and recurrent low back pain. The patient denies any cauda equina symptoms, denies fever. Patient was treated with Zofran and morphine, lumbar plain films ordered. Patient is signed out to this provider with lumbar films pending. This provider we will continue to monitor and follow up imaging results. Expected plan for discharge pending no severe abnormality on x-ray. Reevaluation #2: 3:31 AM 01/25/2025 (Jelena MCGHEE): The patient is x-rays show age-indeterminate compression fractures of T12 and L5. The patient's chart review reveals previously known vertebral fractures are of T5 and T7. Comparison study for today's imaging was CT from July when the T5 and T7 fractures were identified, fractures appear new. The patient will be treated with oxycodone, cyclobenzaprine, and lidocaine patch. The patient will be reassessed for improvement in pain following interventions, if patient is able to ambulate safely and reports improvement in pain patient will be discharged with outpatient follow up. If no improvement following interventions or patient feels unable to ambulate safely, we will hold for PT/case management. Reevaluation #3: 4:39 AM 01/25/2025 (Jelena MCGHEE): The patient reports having no pain relief from oxycodone, cyclobenzaprine, and lidocaine. The patient will receive additional morphine and we will have the patient evaluated by case management and physical therapy. Additional Reevaluation(s): 0800 01/25/2025 Gissel Estrada PA-C ---> Observation continues. Case management continues to follow. 0950 01/25/2025 Gissel Estrada PA-C ---> Observation care revealed the the patient does not meet medical necessity for hospitalization. Final disposition of discharge home discussed with the patient who verbalized understanding and agreement. Patient completed observation care at 0950 on 01/25/2025, total time spent in observation care was 5 hours and 13 minutes. Patient needs to follow up with Oncology as previously directed. Prescription for pain medication already prescribed. Medications Administered Generic Name Dose Route Start Last Admin Trade Name Freq PRN Reason Stop Dose Admin Acetaminophen 650 mg 01/25/25 08:42 01/25/25 09:48 Acetaminophen 325 Mg Tablet PO 650 mg RQ6H PRN Administration Pain, Severe (Pain Scale 7-10) Discontinued Medications Generic Name Dose Route Start Last Admin Trade Name Freq PRN Reason Stop Dose Admin Albuterol Sulfate 2.5 mg/ 0 mg 01/25/25 02:42 01/25/25 02:45 Albuterol/Ipratropium 3 ml INHALE 01/25/25 02:43 1 dose ONCE ONE Administration Cyclobenzaprine HCl 10 mg 01/25/25 03:03 01/25/25 03:23 Cyclobenzaprine Hcl 10 Mg Tablet PO 01/25/25 03:04 10 mg ONCE ONE Administration Lidocaine 1 patch 01/25/25 03:03 01/25/25 03:22 Lidocaine 4 % Patch Adh..Patch TRANSDERMA 01/25/25 03:04 1 patch ONCE ONE Administration Protocol Morphine Sulfate 6 mg 01/25/25 00:53 01/25/25 01:14 Morphine Sulfate 10 Mg/Ml Cartridge IM 01/25/25 00:54 6 mg ONCE ONE Administration Protocol Morphine Sulfate 4 mg 01/25/25 04:37 01/25/25 04:58 Morphine Sulfate 4 Mg/Ml Cartridge IVPUSH 01/25/25 04:38 Not Given ONCE ONE Protocol Morphine Sulfate 15 mg 01/25/25 04:55 01/25/25 05:00 Morphine Sulfate Immed Release 15 Mg Tablet PO 01/25/25 04:56 15 mg ONCE ONE Administration Ondansetron HCl 4 mg 01/25/25 00:53 01/25/25 01:15 Ondansetron Odt 4 Mg Tab.Jeanine GOETZ 01/25/25 00:54 4 mg ONCE ONE Administration Oxycodone HCl 5 mg 01/25/25 03:03 01/25/25 03:23 Oxycodone Hcl Immed Release 5 Mg Tablet PO 01/25/25 03:04 5 mg ONCE ONE Administration Medical Decision Making Medical Decision Making MDM Narrative: 64-year-old male with past medical history as above presents for evaluation of lower back pain after lifting a heavy air conditioning unit. He has no radicular pain, no weakness, no warning signs for cauda equina syndrome. No neurologic deficits at all. He has no abdominal pain or tenderness on exam. History exam is most consistent with a muscular injury. However the patient does have a history of compression fractures with low mechanism of injury and therefore we will get an x-ray of the lumbar spine. He does have a history of chronic kidney disease and we have to avoid NSAIDs we will give him a shot of morphine Differential Diagnosis Differential Diagnoses: The differential diagnosis associated with the presentation includes Muscle strain Disc herniation Compression fracture Burst fracture Sciatica Radiology Impression Discussion of test interpretation with radiology: I have reviewed the radiologist's reading. Radiologist Impression: CLINICAL HISTORY: pian Lumbar Spine, 3 views COMPARISON: Portions of CT/HI/SR - CT ABDOMEN PELVIS W IV CON - 08/03/24 09:45 EDT FINDINGS: Age-indeterminate moderate T12 and mild L5 compression fractures, new since the prior study. No malalignment. Unremarkable soft tissues. Atherosclerosis. IMPRESSION: Age-indeterminate T12 and L5 compression fractures. Please correlate with pain in these areas. This document has been electronically signed by: Fausto Randle MD on 01/25/2025 03:01:26 Discharge Plan Discharge Clinical Impression: Acute bilateral low back pain Patient Disposition: Home, Self-Care Instructions: Acute Low Back Pain (ED) Additional Instructions: Your back pain is most likely due to muscle spasms. You can continue the Tylenol, but because you can not take NSAIDs I will prescribe a muscle relaxer and a narcotic Take the cyclobenzaprine up to 3 times daily as needed for muscle spasms. Take oxycodone every 6 hours but you should spread them out so they do not take them is seem time These medications can both make you sleepy, so I do not drink alcohol or drive after taking them. With a history of constipation, you should take MiraLax and increase fluid and fiber intake in your diet. If you feel constipated I would add magnesium citrate Prescriptions: New cyclobenzaprine 10 mg tablet 10 mg PO TID PRN (Reason: muscle spasm) Qty: 20 0RF oxycodone 5 mg tablet 5 mg PO Q6H PRN (Reason: pain) Qty: 12 0RF Rx Instructions: Partial Fill upon patient request. No Action rosuvastatin 40 mg tablet 40 mg PO DAILY 90 Days Qty: 90 2RF metoprolol succinate 50 mg tablet extended release 24 hr 50 mg PO DAILY 90 Days Qty: 90 2RF isosorbide mononitrate 30 mg tablet extended release 24 hr 30 mg PO DAILY 90 Days Qty: 90 3RF albuterol sulfate [Ventolin HFA] 90 mcg/actuation HFA aerosol inhaler 2 puff inhalation Q6H PRN (Reason: shortness of breath or wheezing) Qty: 8.5 0RF ezetimibe 10 mg tablet 10 mg PO DAILY Qty: 90 3RF omeprazole 20 mg capsule,delayed release(DR/EC) 20 mg PO BID@0630,1630 Qty: 180 0RF cyclobenzaprine 10 mg tablet 10 mg PO BID PRN (Reason: for muscle spasm) Qty: 30 0RF furosemide 40 mg tablet 40 mg PO DAILY Qty: 30 2RF amlodipine 5 mg tablet 5 mg PO DAILY Qty: 90 0RF aspirin 81 mg Tablet,Delayed Release (Dr/Ec) 81 mg PO DAILY melatonin 10 mg Tablet 10 mg PO BEDTIME sennosides-docusate sodium [Senna Plus] 8.6-50 mg Tablet 2 tab PO BID Qty: 120 0RF fluticasone propion-salmeterol [Wixela Inhub] 250-50 mcg/dose blister with device 1 inh inhalation BID Qty: 60 12RF Print Language: Irish
[2025-01-25] MEDS: Albuterol Sulfate 2.5 MG, Albuterol/Iprat 2.5/0.5MG 3 ML 3 ML INHALE (02:45)
[2025-01-25] MEDS: Lidocaine 4 % Patch ADH..PATCH 1 PATCH TRANSDERMA (03:22)
[2025-01-25] MEDS: oxyCODONE HCl Immed Release 5 MG TABLET PO (03:23)
--- NOTE | 2025-01-25 04:38 | PC.NURSE ---
Resumed care of patient at 0300, pt laying in bed sideways as it is what is comfortable with him. Pt continues to report no decrease in pain, PA Eliu made aware, MAR order for morphine pending, PA reporting pt will stay for PTCM at this time. Call randhawa within reach, safety measures in place
[2025-01-25] MEDS: Morphine Sulfate Immed Release 15 MG TABLET PO (05:00)
--- NOTE | 2025-01-25 07:15 | MHC.EDTECH ---
pt was standby to the bathroom with cane
--- NOTE | 2025-01-25 07:58 | PC.NURSE ---
patient a&ox3, rr equal/non labored, lungs diminished/clear, pt ambulatory with stby assist and cane- rings appropriately. pt has c/o lower back pain 11/17- presently there is no PRN or home meds ordered, will notify ed provider, call randhawa within reach, plan of care ongoing.
--- NOTE | 2025-01-25 08:28 | MHC.EDTECH ---
pt ate 50% breakfast and was offered to wash up and pt stated later and was given oral hygiene supplies.
--- NOTE | 2025-01-25 08:34 | PC.NURSE ---
med req pharmacy called to complete med req
--- NOTE | 2025-01-25 09:13 | MHC.EDTECH ---
pt was standby assist to the bathroom
--- NOTE | 2025-01-25 09:48 | PC.NURSE ---
pt medicated for 8 back pain
--- NOTE | 2025-01-25 09:50 | MHC.CM.ED ---
Received case management consult overnight. Patient came to the ER due to back pain. Found to have T12 & L5 compression fractures with indeterminate age. Physical therapy eval completed. Home with services is recommended. Met with patient in regards to discharge planning. Patient lives with his brother, ambulates independently at baseline and was active with [facility] in the past. PCP verified. Copy of HCP verified to be on file. [place] [facility] [place] T5-T7 compression fractures. Patient followed up with Dr Coker outpatient in September and was told to follow up in 1 month. Patient did not follow up. Patient does not feel [facility]NA is necessary at this time. T/W explained how to contact CM or PCP if he feels home therapy is needed. Patient verbalizes understanding. His brother will transport him home. Patient, Alexia ROUSE and Gissel MCGHEE aware. Continue to monitor for d/c needs.
--- NOTE | 2025-01-25 10:13 | PC.NURSE ---
nasal swab not done as patient is discharging home with family instead of a facility.
== END 2025-01-25 10:15 | disposition home or self-care (01) ==
PROVIDERS: Emergency Provider Emergency Medicine; PCP Internal Medicine
DX: M54.50 Low back pain, unspecified (principal); R26.2 Difficulty in walking, not elsewhere classified; J44.9 Chronic obstructive pulmonary disease, unspecified; Z79.899 Other long term (current) drug therapy; Z87.891 Personal history of nicotine dependence
CPT/HCPCS: 72100; 94640; 96372; 96374; 97161; 99285; J2270

== ENCOUNTER → 2025-01-25 00:53 | Outpatient (BNV) | payer MEDICARE, MEDICAID, SELFPAY | PROVIDERS: Emergency Provider Emergency Medicine; PCP Internal Medicine; Visit Provider Radiology Diagnostic Radiology | DX: M48.56XA Collapsed vertebra, not elsewhere classified, lumbar region, initial encounter for fracture (principal) | CPT/HCPCS: 72100 ==

== ENCOUNTER 2025-02-28 10:38 | Outpatient (REF) | payer MEDICARE, MEDICAID, SELFPAY ==
--- NOTE | ~2025-02-28 | XR_ITS ---
EXAMINATION: XR CHEST CLINICAL INFORMATION: R09.02 - Hypoxemia COMPARISON: 07/28/2024. TECHNIQUE: 2 views of the chest were obtained. FINDINGS: Prior median sternotomy and probable CABG. The cardiac, hilar, and mediastinal contours are normal. Aortic mural calcifications. Lungs are somewhat hyperaerated, and there is mild retrocardiac opacity present. This is unchanged. There appears to be a small left layering pleural effusion versus pleural thickening. There are compression deformities of T5, T7, and T12. These are of unknown chronicity. There are mild degenerative changes throughout the spine. XR/XR chest 2V IMPRESSION: 1. Tiny left layering effusion versus pleural thickening. 2. COPD. Patchy opacity in the left base, most likely chronic scarring. 3. Prior sternotomy and CABG. 4. Age indeterminant spinal compression deformities. Electronically signed by: Eliu Hernandez MD 02/28/2025 12:33 PM EDT
[2025-02-28 12:09] LABS: MANUAL DIFF FLAG NO
[2025-02-28 12:30] LABS: Hematocrit 45.6 % (42.0-52.0); Hemoglobin 15.5 g/dl (14.0-18.0); Imm Gran Abs Auto 0.02 X10*3/uL (0.00-0.03); Imm Gran Pct Auto 0.3 % (0.0-0.4); Lymphocytes Absolute Auto 0.9 X10*3/uL (1.2-4.9); Mean Corpuscular HGB Conc 34.0 g/dl (31.0-36.0); Mean Corpuscular Hemoglobin 33.6 pg (27.0-33.0); Mean Corpuscular Volume 98.9 fL (80.0-98.0); NRBC Abs Auto 0.000 X10*3/uL (0.0-0.012); NRBC Pct Auto 0.0 /100WBC (0.0-0.2); Platelet Count 168 X10*3/uL (160-400); Red Blood Count 4.61 X10*6/uL (4.60-5.80); White Blood Count 7.0 X10*3/uL (4.8-10.8)
[2025-02-28 12:54] LABS: Alanine Aminotransferase 44 U/L (0-40); Albumin Level 4.3 g/dL (3.5-5.0); Anion Gap 14 (12-20); Aspartate Amino Transferase 92 U/L (5-37); Blood Urea Nitrogen 11 mg/dL (9-16); Calcium 9.4 mg/dL (8.4-10.2); Carbon Dioxide 29 mmol/L (22-29); Chloride 96 mmol/L (96-108); Estimated Glomerular Filt Rate > 60; Magnesium 2.1 mg/dL (1.6-2.6); Potassium 3.3 mmol/L (3.3-5.1); Sodium 136 mmol/L (135-145); Total Protein 7.7 g/dL (6.5-8.0)
[2025-02-28 13:01] LABS: Alkaline Phosphatase 144 U/L (39-117)
[2025-02-28 14:05] LABS: NT Pro B Type Natriuretic Pept 1142.4 pg/mL (<300)
== END 2025-02-28 10:39 | disposition home or self-care (01) ==
LOC: HO.XRAY 10:38
PROVIDERS: Absent Provider Internal Medicine Cardiovascular Disease; PCP Internal Medicine; Visit Provider Internal Medicine
DX: R09.02 Hypoxemia (principal); S22.000A Wedge compression fracture of unspecified thoracic vertebra, initial encounter for closed fracture; I25.10 Atherosclerotic heart disease of native coronary artery without angina pectoris; E78.00 Pure hypercholesterolemia, unspecified; R73.02 Impaired glucose tolerance (oral); K21.9 Gastro-esophageal reflux disease without esophagitis; I13.0 Hypertensive heart and chronic kidney disease with heart failure and stage 1 through stage 4 chronic kidney disease, or unspecified chronic kidney disease; I50.20 Unspecified systolic (congestive) heart failure; N18.9 Chronic kidney disease, unspecified; J43.1 Panlobular emphysema
CPT/HCPCS: 36415; 71046; 80053; 83735; 83880; 85025; 96127; 99212

== ENCOUNTER 2025-02-28 10:38 | Outpatient (AMB) | payer MEDICARE, MEDICAID, SELFPAY ==
--- NOTE | 2025-02-28 10:46 | A.OFFPC_ITS ---
Vital Signs 02/28/25 10:49 BP 138/78 Blood Pressure Location Lt brachial Position Sitting Pulse 102 H Pulse Source Pulse Oximeter Temp 97.0 F Temp Source Temporal Artery Scan Pulse Oximetry (%) 92 Oxygen Delivery Method Room Air Intake Visit Reasons: back pain Accompanied by: Nephew or Niece Allergies ARB-Angiotensin Receptor Antagonist Adverse Reaction (Severe, Verified 02/28/25 10:50) [place] MALVIN Inhibitors Adverse Reaction (Intermediate, Verified 02/28/25 10:50) [place] Medication List - Last Reconciled 02/28/25 by Boy Jorge MD albuterol sulfate 90 mcg/actuation (Ventolin HFA) 2 puffs inhalation Q6H PRN amlodipine 5 mg PO DAILY aspirin 81 mg PO DAILY cyclobenzaprine 10 mg PO BID PRN ezetimibe 10 mg PO DAILY fluticasone propion-salmeterol 250-50 mcg/dose (Wixela Inhub) 1 inh inhalation BID furosemide 40 mg PO DAILY isosorbide mononitrate ER 30 mg PO DAILY 90 days lidocaine 5% 2 patches topical DAILY melatonin 10 mg PO BEDTIME metoprolol succinate ER 50 mg PO DAILY 90 days omeprazole 20 mg PO BID@0630,1630 oxycodone 5 mg PO Q6H PRN rosuvastatin 40 mg PO DAILY 90 days sennosides-docusate sodium 8.6-50 mg (Senna Plus) 2 tabs PO BID Tobacco use date assessed: 02/28/25 Fall risk assessment: No Falls in past year Last assessed Fall Risk: 02/28/25 Dental Screening Dental Screen Date: 02/28/25 Did you have a dental visit in the last 12 months?: No Did you have a dental problem in the last 6 months where you did not have access to dental care?: No Was dental information given to patient?: No HPI back pain HPI Details sob 1 month, when moving [facility] Medical History Heart failure with reduced ejection fraction Constipation Colon cancer screening Obesity (BMI 30-39.9) Tobacco abuse Adult general medical exam Screening for prostate cancer Ischemic cardiomyopathy Colonoscopy refused Umbilical hernia COPD (chronic obstructive pulmonary disease) Coronary artery disease GERD (gastroesophageal reflux disease) Hypercholesterolemia Insomnia Hypertension Surgical History Hx of CABG Family History Father No problems noted. Mother No problems noted. Sister No problems noted. Sister No problems noted. Brother No problems noted. Brother Myocardial infarct Liver cancer Social History Household Members: Family Household Members Other:: brother Housing: House Do you presently have visiting nurse or other home services: No Alcohol intake: current Alcohol intake frequency: 0-2 drinks per day Alcohol type: beer Patient Tobacco Use Status: Former Tobacco user Tobacco use type: Cigarette e-Cigarette/Vaping Use: Never Used Second Hand Smoke Exposure: No Substance Use Type: Marijuana Advance Directives Date on File: 01/07/23 service: No Current occupational status: disabled Cognitive needs: No Hearing needs: No Vision needs: Yes Questionnaire PHQ-9 Over the last 2 weeks, how often have you been bothered by any of the following problems? 1. Little interest or pleasure in doing things: not at all 2. Feeling down, depressed, or hopeless: not at all 3. Trouble falling or staying asleep, or sleeping too much: not at all 4. Feeling tired or having little energy: not at all 5. Poor appetite or overeating: not at all 6. Feeling bad about yourself - or that you are a failure or have let yourself or your family down: not at all 7. Trouble concentrating on things, such as reading the newspaper or watching television: not at all 8. Moving or speaking so slowly that other people could have noticed. Or the opposite - being so fidgety or restless that you have been moving around a lot more than usual: not at all 9. Thoughts that you would be better off or of hurting yourself in some way: not at all Total score: 0 Depression Screening Interpretation: Negative Depression Screening Done: Yes Source: Developed by Drs. Johnny Araiza, Tamiko Mcdonald, Negrito Maurer and colleagues, with an educational franklin from [employer] Thrive Questionnaire Date Thrive assessed: 08/02/24 I am a: Patient What is your living situation today?: I have a steady place to live Within the past 12 months, did the food you bought not last and you didn't have the money to get more?: Never true Within the past 12 months, did you worry whether your food would run out before you got money to buy more?: Never true Do you have trouble paying for medicines?: No Do you have trouble getting transportation to medical appointments?: No Do you have trouble paying your heating and electricity bill?: No Do you have trouble taking care of your child, family member or friend?: No Do you have trouble with day-to-day activities such as bathing, preparing meals, shopping, managing finances, etc.?: No Are you currently unemployed and looking for a job?: No Are you interested in more education?: No Please select the resources that you would like help with: None Currently or been in a relationship where the following occur: No concerns reported THRIVE Score: 0 AUDIT C Alcohol Use Questionnaire (AUDIT-C) 1. How often do you have a drink containing alcohol?: 2-3 times a week 2. How many drinks containing alcohol do you have on a typical day when you are drinking?: 3 or 4 3. How often do you have six or more drinks on one occasion?: Never Total Score: 4 JUAN-7 AMB Questionnaire JAUN-7 Date JUAN - 7 assessed: 06/10/24 Feeling nervous, anxious, or on edge: 0 = Not at all Not being able to stop or control worryin = Not at all Worrying too much about different things: 0 = Not at all Trouble relaxin = Not at all Being so restless that it is hard to sit still: 0 = Not at all Becoming easily annoyed or irritable: 0 = Not at all Feeling afraid as if something awful might happen: 0 = Not at all Total JUAN-7 score (0-4 normal; 5-9 mild; 10-14 moderate; 15-21 severe): 0 Source: Developed by Drs. Johnny Araiza, Tamiko Mcdonald, Negrito Maurer and colleagues, with an educational franklin from [employer] Physical exam (Primary Care) Vital Signs: Last Vital Signs Temp 97.0 F 02/28/25 10:49 Pulse 102 H 02/28/25 10:49 BP 138/78 02/28/25 10:49 Pulse Ox 92 02/28/25 10:49 Oxygen Delivery Method Room Air 02/28/25 10:49 Tobacco/Smoking Status: Tobacco use Status Tobacco use date assessed 02/28/25 02/28/25 10:51 Patient Tobacco Use Status Former Tobacco user 02/28/25 10:51 Tobacco use type Cigarette 02/28/25 10:51 e-Cigarette/Vaping Use Never Used 02/28/25 10:51 PHQ-9: PHQ-9 Score PHQ-9: Total score 0 02/28/25 10:58 Depression Screening Interpretation: Negative Thrive Assessment: Date of Thrive Assessment Date Thrive assessed 08/02/24 02/28/25 10:51 Currently or been in a relationship where the following occur: No concerns reported Const General: alert; No acute distress Eyes Conjunctivae: conjunctivae normal Resp Auscultation: clear to auscultation bilaterally Cardio Rate: regular rate Rhythm: regular rhythm GI Inspection: Yes normal to inspection Extrem General: Yes normal to inspection and No edema Coding Level of Care Code Est Pt Level 4 (69325) Complex EM visit Add On G2211 Diagnoses Compression fracture of body of thoracic vertebra S22.000A Coronary artery disease involving prairie band coronary artery of prairie band heart without angina pectoris I25.10 Associated angina: without angina Coronary Disease-Associated Artery/Lesion type: prairie band artery [place] vs. transplanted heart: prairie band heart Essential hypertension I10 Hypertension type: essential hypertension Hypercholesterolemia E78.00 Impaired glucose tolerance R73.02 Gastroesophageal reflux disease without esophagitis K21.9 Esophagitis presence: without esophagitis Chronic kidney disease, unspecified CKD stage N18.9 Chronic kidney disease stage: unspecified stage Hypoxemia R09.02 Heart failure with reduced ejection fraction I50.20 Assessment & Plan Assessment & Plan (1) Compression fracture of body of thoracic vertebra: Comment: 10/20/2024 CT fluoroscopy guided right transpedicular T5 vertebral body bone marrow biopsy. Patient had T5 and T7 sclerosis compression fracture of T5 and T7 vertebral fractures January T12-L5 Code(s): S22.000A - Wedge compression fracture of unspecified thoracic vertebra, initial encounter for closed fracture Category: Medical Plan: Avoid heavy lifting patient has a history of compression fractures (2) Coronary artery disease: Comment: [place], circumflex stenting in 2009, unstable angina, LAD stenting in 2011. Persistent significant angina with abnormal stress test leading to 3 vessel coronary artery bypass grafting in 2012 echocardiogram May 2022Normal left ventricular cavity size. There is mildly increased left ventricular wall thickness. The left ventricular systolic function is mildly decreased. The visually estimated ejection fraction is between 40-45%. - E/E prime ratio is between 8 and 15 consistent with indeterminate filling pressures. - The basal inferior and mid inferior segments are akinetic. - Normal right ventricular cavity size and systolic function. Code(s): I25.10 - Atherosclerotic heart disease of prairie band coronary artery without angina pectoris Category: Medical Qualifiers: Associated angina: without angina Coronary Disease-Associated Artery/Lesion type: prairie band artery [place] vs. transplanted heart: prairie band heart Qualified Code(s): I25.10 - Atherosclerotic heart disease of prairie band coronary artery without angina pectoris Plan: Control the cholesterol, weight, blood pressure, continue taking aspirin 81 mg once a day. Patient's last echocardiogram EF of 35-40% discussed about furosemi de and increasing it when the weight is coming up. Discussed about weighing every day and recording. (3) Hypertension: Code(s): I10 - Essential (primary) hypertension Category: Medical Qualifiers: Hypertension type: essential hypertension Qualified Code(s): I10 - Essential (primary) hypertension Plan: Continue with blood pressure medication. Decrease salt intake and exercise on amlodipine 5 mg once a day metoprolol 50 mg once a day (4) Hypercholesterolemia: Code(s): E78.00 - Pure hypercholesterolemia, unspecified Category: Medical Plan: Avoid fried foods, chicken skin, eggs, butter margarine, pastries and meat. Be it pork or beef they have a lot of cholesterol on rosuvastatin 40 mg once a day (5) Impaired glucose tolerance: Code(s): R73.02 - Impaired glucose tolerance (oral) Category: Medical Plan: Decrease the amount of carbohydrate intake, pasta, bread, rice and potatoes are all sugar and that is aside from all the sweet stuff, remember that fruits are good but they are Sweet also. (6) GERD (gastroesophageal reflux disease): Code(s): K21.9 - Gastro-esophageal reflux disease without esophagitis Category: Medical Qualifiers: Esophagitis presence: without esophagitis Qualified Code(s): K21.9 - Gastro-esophageal reflux disease without esophagitis Plan: Avoid the foods that causes that usually spicy foods, tomato products, juices, coffee, soda and foods that your sensitive to. After eating do not lie down, allow 3-4 hours before in lie down. And keep the head of bed above 30 degrees to avoid the acid from going up. (7) Chronic kidney disease (CKD): Comment: Patient follows up with Nephrology Code(s): N18.9 - Chronic kidney disease, unspecified Category: Medical Qualifiers: Chronic kidney disease stage: unspecified stage Qualified Code(s): N18.9 - Chronic kidney disease, unspecified Plan: Keep well hydrated and avoid NSAIDs (8) Hypoxemia: Code(s): R09.02 - Hypoxemia Category: Medical Plan: on walking o2 sat 88 , sitting down is 92 O2 2 L NC placed o2 sat 95. Oxygen taken off O2 sat back to 91 (9) Heart failure with reduced ejection fraction: Code(s): I50.20 - Unspecified systolic (congestive) heart failure Category: Medical Plan: Weigh daily and record. Patient on isosorbide mononitrate, furosemide and metoprolol. Discussed about adding diuretics when the weight is coming up. Blood work requested Plan History of Present Illness The patient is a 64-year-old male presenting with back pain and shortness of breath. The back pain began after moving an air conditioner unit, during which the patient heard a pop in his back. X-rays revealed compression fractures at T12 and L5, with a history of previous vertebral fractures at T5 and T7. The patient was treated with oxycodone, lidocaine patch, and cyclobenzaprine for pain management. The patient reports shortness of breath, which has been present for about a month, worsening with exertion. The patient's last cardiac ultrasound showed an ejection fraction of 35-40%, indicating a weakened heart. Oxygen saturation was noted to be 92% at rest, dropping to 88% with activity, suggesting a need for supplemental oxygen. The patient has a history of coronary artery disease, chronic kidney disease, and chronic obstructive pulmonary disease, which complicate his current condition. He also has a history of alcohol use disorder and anemia, which are being monitored. Health Maintenance - Colon cancer screening: Positive Cologuard test in March 2024 Social History - Substance use: History of alcohol use disorder Review of Systems - Musculoskeletal: Reports back pain after moving an air conditioner unit. - Respiratory: Reports shortness of breath worsening with exertion. Physical Exam - Respiratory: Wheezing noted on auscultation - Oxygen saturation: 92% at rest, drops to 88% on exertion Results - Imaging: X-rays showing compression fractures at T12 and L5 - Cardiac ultrasound: Ejection fraction of 35-40% - Laboratory: Anemia noted in last blood work Plan Patient was informed and verbally consented to the use of an ambient scribe for clinic note documentation during this visit. 1. Back Pain The patient experienced back pain after moving an air conditioner, resulting in compression fractures at T12 and L5. Management includes pain control with oxycodone, lidocaine patch, and cyclobenzaprine. 2. Shortness Of Breath The patient reports shortness of breath, exacerbated by exertion, with oxygen saturation dropping to 88% on activity. The plan includes supplemental oxygen therapy and further evaluation to determine if the cause is cardiac or pulmonary in origin. 3. Congestive Heart Failure The patient has a history of congestive heart failure with reduced ejection fraction, last measured at 35-40%. Management involves monitoring fluid status, adjusting diuretics, and ensuring potassium levels are maintained. 4. Chronic Obstructive Pulmonary Disease The patient has COPD, which contributes to his respiratory symptoms. Management includes the use of inhalers such as Wixela and albuterol to improve breathing. 5. Alcohol Use Disorder The patient has a history of alcohol use disorder, which is being monitored. Discussion Notes During the visit, I discussed the patient's back pain and shortness of breath, emphasizing the need for pain management and supplemental oxygen therapy. We reviewed the patient's history of congestive heart failure and COPD, and I explained the importance of monitoring fluid status and using inhalers to manage symptoms. I also addressed the patient's alcohol use disorder, highlighting the need for ongoing monitoring and support. Patient Instructions - Use prescribed pain medications and lidocaine patch as directed for back pain. - Use supplemental oxygen as needed, especially during exertion. - Monitor weight daily and report any significant changes to your healthcare provider. - Continue using inhalers as prescribed to manage COPD symptoms. - Avoid alcohol and seek support for alcohol use disorder. Orders: Orders XR chest 2V Today R09.02 - Hypoxemia Complete Blood Count Auto Diff Today R09.02 - Hypoxemia Comprehensive Met. Panel Today R09.02 - Hypoxemia Magnesium Today R09.02 - Hypoxemia NT Pro B Type Natriuretic Pept Today R09.02 - Hypoxemia Medications: New Oxygen Home Use As directed 2 L NC 1 ea 0RF R09.02 - Hypoxemia lidocaine 5% 1 appl topical BID PRN 50 grams 0RF pain S22.000A - Wedge compression fracture of unspecified thoracic vertebra, initial encounter for closed fracture Refilled furosemide 40 mg PO DAILY 90 tabs 2RF J43.1 - Panlobular emphysema
[2025-02-28 10:49] VITALS: BP 138/78; PULSE 102; TEMP 36.1; O2SAT 92
--- OUTSIDE RECORDS SUMMARY | 2025-02-28 12:48 | XMS_ITS | Encounter Summary ---
Author Organization [facility] Address [address] [facility] [address] [place] [address] Phone Care Team Providers Care Hospital Plan Administrator Name Role Phone Boy Jorge MD Primary Care Provider Reason for Visit * Reason Comments Med Refill Encounter Details Date Type Department Care Team (Late st Contact Info) Description 01/22/2024 [facility]ill [facility] [address] [place] [phone] Bairon Redman MD [address] [facility] [address] [place] [phone] Social History Tobacco Use Types Packs/Day Years [...] on filedocumented in this encounter Care Teams Hospital Plan Administrator Relationship Specialty Start Date End Date Boy Jorge MD [facility] [place] [address] [place] PCP - General Internal Medicine 09/02/21 documented as of this encounter
--- OUTSIDE RECORDS SUMMARY | 2025-02-28 12:48 | XMS_ITS | Clinical Summary ---
Author Organization [facility] Address [address] [place] [address] Phone Care Team Providers Care Stock Lifter Name Role Phone Boy Jorge MD Primary Care Provider [phone] Allergies No known active allergies Medications zolpidem [...] disease 10/08/2021 Atherosclerotic heart diseas e of [place] coronary artery with angina pectoris 10/08/2021 Gastroesophageal [...] to complete this topic Insurance Medicare Medicaid [place] Care Teams Stock Lifter Relationship Specialty Start Date End Date Boy Jorge MD [address] [employer], [place] PCP - General Internal Medicine 09/02/21
--- OUTSIDE RECORDS SUMMARY | 2025-02-28 12:48 | XMS_ITS | Encounter Summary ---
Author Organization [facility] Address [address] [facility] [address] [place] [address] Phone Care Team Providers Care Clinical Dermatologist Name Role Phone Boy Jorge MD Primary Care Provider [phone] Reason for Visit * Reason Comments Med Refill Encounter Details Date Type Department Care Team (Late st Contact Info) Description 01/14/2024 Refill [facility] [address] [place] [phone] Bairon Redman MD [address] [facility] [address] [place] [phone] Social History Tobacco Use Types Packs/Day Years [...] on filedocumented in this encounter Care Teams Clinical Dermatologist Relationship Specialty Start Date End Date Boy Jorge MD [facility] [facility] [place] [address] [place] PCP - General Internal Medicine 09/02/21 documented as of this encounter
== END 2025-02-28 11:38 | disposition home or self-care (01) ==
LOC: HO.HMCH 10:39
PROVIDERS: PCP Internal Medicine; Visit Provider Internal Medicine
DX: S22.000A Wedge compression fracture of unspecified thoracic vertebra, initial encounter for closed fracture (principal); I12.9 Hypertensive chronic kidney disease with stage 1 through stage 4 chronic kidney disease, or unspecified chronic kidney disease; I25.10 Atherosclerotic heart disease of native coronary artery without angina pectoris; I50.20 Unspecified systolic (congestive) heart failure; E78.00 Pure hypercholesterolemia, unspecified; R73.02 Impaired glucose tolerance (oral); K21.9 Gastro-esophageal reflux disease without esophagitis; N18.9 Chronic kidney disease, unspecified; R09.02 Hypoxemia

== ENCOUNTER → 2025-02-28 12:04 | Outpatient (BNV) | payer MEDICARE, MEDICAID, SELFPAY | PROVIDERS: Absent Provider Internal Medicine Cardiovascular Disease; PCP Internal Medicine; Visit Provider Radiology Diagnostic Radiology | DX: J44.9 Chronic obstructive pulmonary disease, unspecified (principal); R91.8 Other nonspecific abnormal finding of lung field; Z95.1 Presence of aortocoronary bypass graft; Z98.890 Other specified postprocedural states | CPT/HCPCS: 71046 ==

== ENCOUNTER 2025-04-24 14:19 | Outpatient (AMB) | payer MEDICARE, MEDICAID, SELFPAY ==
--- NOTE | 2025-04-24 14:29 | A.OFFPC_ITS ---
Vital Signs 04/24/25 14:37 Height 5 ft 10 in Weight 188 lb 4 oz BMI 27.0 BP 108/60 Respiration 16 Pulse 81 Pulse Source Pulse Oximeter Temp 97.1 F Temp Source Temporal Artery Scan Pulse Oximetry (%) 96 Oxygen Delivery Method Room Air Comment wt per patient Intake Visit Reasons: hypoxemia, CAD, COPD Nuclear Medicine Medical Director Required: No Accompanied by: Nephew or Niece Allergies ARB-Angiotensin Receptor Antagonist Adverse Reaction (Severe, Verified 04/24/25 14:29) [facility] MALVIN Inhibitors Adverse Reaction (Intermediate, Verified 04/24/25 14:29) [place] Medication List - Last Reconciled 04/24/25 by Boy Johnson Po, albuterol sulfate 90 mcg/actuation (Ventolin HFA) 2 puffs inhalation Q6H PRN amlodipine 5 mg PO DAILY aspirin 81 mg PO DAILY cyclobenzaprine 10 mg PO BID PRN ezetimibe 10 mg PO DAILY fluticasone propion-salmeterol 250-50 mcg/dose (Wixela Inhub) 1 inh inhalation BID furosemide 40 mg PO DAILY isosorbide mononitrate ER 30 mg PO DAILY 90 days lidocaine 5% 1 appl topical BID PRN melatonin 10 mg PO BEDTIME metoprolol succinate ER 50 mg PO DAILY 90 days omeprazole 20 mg PO BID@0630,1630 Oxygen Home Use As directed 2 L NC 01/12/continuously keeps sats > 90 on concentrator and O2 tank potassium chloride ER (Klor-Con M) 20 mEq PO DAILY rosuvastatin 40 mg PO DAILY 90 days sennosides-docusate sodium 8.6-50 mg (Senna Plus) 2 tabs PO BID Tobacco use date assessed: 02/28/25 Dental Screening Dental Screen Date: 02/28/25 HPI HPI Comments History of Present Illness Details History of Present Illness The patient is a 64 year old male presenting for a follow-up visit for management of multiple chronic conditions. He has a history of being overweight, with a recent 7-pound weight loss. His comorbidities include impaired glucose tolerance, history of alcohol abuse, coronary artery disease, hypercholesterolemia, anemia, chronic kidney disease, GERD, and hypertension. He also has ischemic cardiomyopathy complicated by COPD and congestive heart failure with reduced ejection fraction. The patient reports chronic back pain and stiffness, particularly in the morning, which he attributes to arthritis. He uses cyclobenzaprine 10 mg, which is the maximum dose, and Tylenol for pain, finding that the pain returns after a couple of hours. He notes some improvement in mobility, being able to get out of bed, but mobility is still limited. He has been using an ice pack for relief but was advised to use heat to improve circulation. Laboratory work from February 2025 showed a normal blood count with macrocytosis, normal platelet count, normal electrolytes except for low potassium at 3.3, creatinine of 1.2, and an elevated blood sugar of 127. An A1c in May was 5.9%, and liver enzymes were elevated with a BMP of 1,142. A chest X-ray from February 28 showed scarring in the lungs, a small amount of fluid on the left side, and T5, T7, and T12 spinal compression fractures. The patient quit smoking, including weed, in June after a hospitalization. He reports he has not had a colonoscopy. He has upcoming appointments with pulmonology in May and cardiology on May 27. Health Maintenance The patient will receive flu and pneumonia vaccinations today. He was reminded about the need for colon cancer screening. Complete fasting lab work will be done next month. A follow-up visit is scheduled in three months. Social History - Alcohol Use: The patient has a history of alcohol abuse. - Tobacco Use: He quit smoking, includin g marijuana, in June. - Functional Status: The patient reports limited mobility and is mostly at home. - He is no longer driving. - Hobbies: He used to play soccer. Results - Labs (February 2025): Normal blood coun t with macrocytosis, normal platelet count, sodium normal, potassium 3.3, creatinine 1.2, blood sugar 127. - Labs (May): Hemoglobin A1c 5.9%. - Labs: BMP was 1142, liver numbers were elevated at an unspecified time. - Imaging (Chest X-ray, February 28): Melissa ws chronic scarring in lungs, tiny layering of fluid on the left side, and compression fractures at T5, T7, and T12. COUNT INCLUDES THE [facility] Medical History Heart failure with reduced ejection fraction Constipation Colon cancer screening Obesity (BMI 30-39.9) Tobacco abuse Adult general medical exam Screening for prostate cancer Ischemic cardiomyopathy Colonoscopy refused Umbilical hernia COPD (chronic obstructive pulmonary disease) Coronary artery disease GERD (gastroesophageal reflux disease) Hypercholesterolemia Insomnia Hypertension Surgical History Hx of CABG Family History Father No problems noted. Mother No problems noted. Sister No problems noted. Sister No problems noted. Brother No problems noted. Brother Myocardial infarct Liver cancer Social History Household Members: Family Household Members Other:: brother Housing: House Do you presently have visiting nurse or other home services: No Alcohol intake: current Alcohol intake frequency: 0-2 drinks per day Alcohol type: beer Patient Tobacco Use Status: Former Tobacco user Tobacco use type: Cigarette e-Cigarette/Vaping Use: Never Used Second Hand Smoke Exposure: No Substance Use Type: Marijuana Advance Directives Date on File: 01/07/23 service: No Current occupational status: disabled Cognitive needs: No Hearing needs: No Vision needs: Yes Questionnaire PHQ-9 Over the last 2 weeks, how often have you been bothered by any of the following problems? 1. Little interest or pleasure in doing things: not at all 2. Feeling down, depressed, or hopeless: several days Source: Developed by Drs. Johnny Araiza, Negrito Lou and colleagues, with an educational franklin from [employer]. Thrive Questionnaire Date Thrive assessed: 08/02/24 JUAN-7 AMB Questionnaire JUAN-7 Date JUAN - 7 assessed: 06/10/24 Source: Developed by Drs. Johnny Araiza, Negrito Lou and colleagues, with an educational franklin from [employer]. Review of Systems Narrative Review of Systems - Constitutional: Reports a 7-pound weight loss. - Musculoskeletal: Reports morning stiffness in the back and legs, and constant, nagging back pain. - Respiratory: Reports a productive cough. - Cardiovascular: Denies swelling in the legs. Physical exam (Primary Care) Vital Signs: Last Vital Signs Temp 97.1 F 04/24/25 14:37 Pulse 81 04/24/25 14:37 Resp 16 04/24/25 14:37 BP 108/60 04/24/25 14:37 Pulse Ox 96 04/24/25 14:37 Oxygen Delivery Method Room Air 04/24/25 14:37 BMI result Body Mass Index 27.0 Tobacco/Smoking Status: Tobacco use Status Tobacco use date assessed 02/28/25 04/24/25 14:31 Patient Tobacco Use Status Former Tobacco user 04/24/25 14:31 Tobacco use type Cigarette 04/24/25 14:31 e-Cigarette/Vaping Use Never Used 04/24/25 14:31 Thrive Assessment: Date of Thrive Assessment Date Thrive assessed 08/02/24 04/24/25 14:31 Narrative Physical Exam - Respiratory: Wheezing heard on auscultation. Const General: alert; No acute distress Eyes Conjunctivae: conjunctivae normal Resp Auscultation: clear to auscultation bilaterally Cardio Rate: regular rate Rhythm: regular rhythm GI Inspection: Yes normal to inspection Extrem General: Yes normal to inspection and No edema Office Procedures Flu Questionnaire Does the patient have a severe egg allergy?: No Does the patient have severe life threatening allergies?: No Does the patient have a fever or illness today?: No Has the patient ever had Guillain-[place] Syndrome?: No Has the patient ever had any past reaction to a flu shot?: No Immunizations Fluarix (PF) 45 mcg (15 mcg x 3)/0.5 mL IM syringe Performing Provider: Boy Jorge MD Performing Location: [facility] Adult Primary [facility] Administered by: JAZMYN Adhikari on 04/24/25 15:21 Dose Route Admin Location Dispensed Lot Number Expiration Date [facility] [employer]ar[employer] Supervisor 0.5 mL IM Left Deltoid 0.5 mL [id number] 11/07/25 [id number] Yingying Licai VIS Given Date VIS Provided VIS Publication Date 04/24/25 Single Vaccine 24 Eligibility Eligibility Date Funding Source Not VF Eligible 04/24/25 Private pneumoc 20-kami conj-dip cr(PF) 0.5 mL IM syringe Performing Provider: Boy Jorge MD Performing Location: [facility] Adult [facility] Administered by: JAZMYN Adhikari on 04/24/25 15:21 Dose Route Admin Location Dispensed Lot Number Expiration Date [facility] [employer] Supervisor 0.5 mL IM Right Deltoid 0.5 mL [id number] 02/07/26 [id number] [employer] Total Dispensed Waste 0.5 mL 0 % VIS Given Date VIS Provided VIS Publication Date 04/24/25 Single Vaccine 24 Eligibility Eligibility Date Funding Source Not [facility] Eligible 04/24/25 Private Coding Level of Care Code Est Pt Level 4 (75652) Add On Problem Visit Only Diagnoses Essential hypertension I10 Hypertension type: essential hypertension Ischemic cardiomyopathy I25.5 Coronary artery disease involving [place] coronary artery of [place] heart without angina pectoris I25.10 Associated angina: without angina Coronary Disease-Associated Artery/Lesion type: [place] artery [place] vs. transplanted heart: [place] heart Hypercholesterolemia E78.00 Heart failure with reduced ejection fraction I50.20 Impaired glucose tolerance R73.02 Overweight (BMI 25.0-29.9) E66.3 Chronic kidney disease, unspecified CKD stage N18.9 Chronic kidney disease stage: unspecified stage Positive colorectal cancer screening using Cologuard test R19.5 Panlobular emphysema J43.1 COPD type: emphysema Emphysema type: panlobular Assessment & Plan Assessment & Plan (1) Hypertension: Code(s): I10 - Essential (primary) hypertension Category: Medical Qualifiers: Hypertension type: essential hypertension Qualified Code(s): I10 - Essential (primary) hypertension Plan: Continue with blood pressure medication. Decrease salt intake and exercise pat ient on amlodipine 5 mg once a day isosorbide mononitrate metoprolol 50 mg once a day (2) Ischemic cardiomyopathy: Code(s): I25.5 - Ischemic cardiomyopathy Category: Medical Plan: Keep well hydrated. Continue to follow up with Cardiology (3) Coronary artery disease: Comment: [place], circumflex stenting in 2009, unstable angina, LAD stenting in 2011. Persistent significant angina with abnormal stress test leading to 3 vessel coronary artery bypass grafting in 2012 echocardiogram September 2021Normal left ventricular cavity size. There is mildly increased left ventricular wall thickness. The left ventricular systolic function is mildly decreased. The visually estimated ejection fraction is between 40-45%. - E/E prime ratio is between 8 and 15 consistent with indeterminate filling pressures. - The basal inferior and mid inferior segments are akinetic. - Normal right ventricular cavity size and systolic function. Code(s): I25.10 - Atherosclerotic heart disease of [place] coronary artery without angina pectoris Category: Medical Qualifiers: Associated angina: without angina Coronary Disease-Associated Artery/Lesion type: [place] artery [place] vs. transplanted heart: [place] heart Qualified Code(s): I25.10 - Atherosclerotic heart disease of [place] coronary artery without angina pectoris Plan: Control the cholesterol, weight, blood pressure, continue with aspirin 81 mg once a day (4) Hypercholesterolemia: Code(s): E78.00 - Pure hypercholesterolemia, unspecified Category: Medical Plan: Avoid fried foods, chicken skin, eggs, butter margarine, pastries and meat. Be it pork or beef they have a lot of cholesterol LDL goal of less than 70 and triglyceride of less than 150 on rosuvastatin 40 mg once a day (5) Heart failure with reduced ejection fraction: Code(s): I50.20 - Unspecified systolic (congestive) heart failure Category: Medical Plan: Continue with diuretic and monitor renal function and electrolytes (6) Impaired glucose tolerance: Code(s): R73.02 - Impaired glucose tolerance (oral) Category: Medical Plan: Decrease the amount of carbohydrate intake, pasta, bread, rice and potatoes are all sugar and that is aside from all the sweet stuff, remember that fruits are good but they are Sweet also. (7) Overweight (BMI 25.0-29.9): Code(s): E66.3 - Overweight Category: Medical Plan: Diet and exercise (8) Chronic kidney disease (CKD): Comment: Patient follows up with Nephrology Code(s): N18.9 - Chronic kidney disease, unspecified Category: Medical Qualifiers: Chronic kidney disease stage: unspecified stage Qualified Code(s): N18.9 - Chronic kidney disease, unspecified Plan: Keep well hydrated, avoid NSAIDs (9) Positive colorectal cancer screening using Cologuard test: Code(s): R19.5 - Other fecal abnormalities Category: Medical Plan: Reminded about colon testing (10) COPD (chronic obstructive pulmonary disease): Code(s): J44.9 - Chronic obstructive pulmonary disease, unspecified Category: Medical Qualifiers: COPD type: emphysema Emphysema type: panlobular Qualified Code(s): J43.1 - Panlobular emphysema Plan: Continue with Wixela and albuterol Plan Plan Patient was informed and verbally consented to the use of an ambient scribe for clinic note documentation during this visit. 1. Hypertension The patient will continue his current medication regimen, which includes amlodipine 5 mg once a day, isosorbide mononitrate, and metoprolol 50 mg once a day. He is advised to stay well hydrated. 2. Coronary Artery Disease And Congestive Heart Failure The patient will continue taking aspirin 81 mg once a day. He is to continue f ollow-up with his renewals specialist. He will also continue the diuretic, and electrolytes will be monitored. 3. Hypercholesterolemia The patient will continue taking rosuvastatin 40 mg once daily, with an LDL goal of less than 70 mg/dL and a triglyceride goal of less than 150 mg/dL. 4. Chronic Kidney Disease And Diabetes Management will focus on diet and exercise, maintaining good hydration, and avoiding NSAIDs. Renal function will be monitored. 5. Chronic Obstructive Pulmonary Disease The patient will continue using Wixela twice daily and albuterol as needed. He was reminded to rinse his mouth after using Wixela. A follow-up appointment with a category analyst is scheduled for May. 6. Chronic Back Pain The patient requested an increase in his cyclobenzaprine dose but was informed he is already on the maximum strength of 10 mg. A refill for cyclobenzaprine will be provided with a warning about potential sleepiness and fall risk. He was advised to use heat therapy instead of ice packs to improve circulation and promote healing for his arthritis pain. Discussion Notes I discussed the patient's request to increase his cyclobenzaprine dose for back pain, clarifying that he is already on the maximum 10 mg dose. I agreed to refill the medication but counseled him on the risks, including sleepiness and falls, which he acknowledged, stating he is mostly at home and not driving. I explained that his morning stiffness and persistent back pain are due to arthritis and are unlikely to resolve completely. I educated him on the benefits of using heat therapy to increase circulation for healing, as opposed to ice, which provides numbness by constricting blood vessels. We reviewed his lab results from February, noting the low potassium and high blood sugar, and I informed him that we will recheck these with fasting blood work next month. I also reviewed his chest X-ray findings, including chronic lung scarring, a small amount of fluid, and spinal compression fractures, link ing the latter to his back pain. We discussed immunizations, and the patient consented to receiving the flu and pneumonia vaccines today, which I identified as the immediate priority. I deferred the tetanus shot for a later visit and mentioned the optional shingles vaccine, available at the pharmacy. I have scheduled a follow-up appointment in three months to review his progress and new lab results. Patient Instructions - Continue your current medications as prescribed, including amlodipine, isosorbide, metoprolol, aspirin, and rosuvastatin. - For your back pain, use a heating pad instead of an ice pack to help with circulation and healing. - Be aware that your muscle relaxant, cyclobenzaprine, can cause sleepiness. Be careful to avoid falls. - Continue using your Wixela inhaler twice a day and remember to rinse your mouth with water after each use. - Make sure to keep yourself well hydrated and avoid using NSAIDs like ibuprofen or naproxen. - You will get your flu and pneumonia shots today. - You need to get fasting blood work done next month. Do not eat for 8 hours before the test. You can have sips of water. - Keep your scheduled appointments with your heart doctor (Cardiology) and lung doctor (Pulmonology). - We will schedule your next follow-up visit here in three months. Orders: Orders Comprehensive Met. Panel 1 Month R73.02 - Impaired glucose tolerance (oral) Complete Blood Count Auto Diff 1 Month R73.02 - Impaired glucose tolerance (oral) Hemoglobin A1c 1 Month R73.02 - Impaired glucose tolerance (oral) Free T4 (Free Thyroxine) 1 Month R73.02 - Impaired glucose tolerance (oral) UA CC w/rflx Micro + Cult 1 Month R30.0 - Dysuria, R73.02 - Impaired glucose tolerance (oral) Vitamin B12 and Folate 1 Month R73.02 - Impaired glucose tolerance (oral) Prostate Specific Antigen Scr 1 Month R73.02 - Impaired glucose tolerance (oral) IRON PROFILE 1 Month R73.02 - Impaired glucose tolerance (oral) Influenza [id number] Immunization Today Z23 - Encounter for immunization Pneumococcal 20 Immunization Today Z23 - Encounter for immunization Thyroid Stimulating Hormone 1 Month R73.02 - Impaired glucose tolerance (oral) Lipid Panel 1 Month E78.00 - Pure hypercholesterolemia, unspecified, R73.02 - Impaired glucose tolerance (oral) Ferritin 1 Month R73.02 - Impaired glucose tolerance (oral) Reticulocyte Count 1 Month R73.02 - Impaired glucose tolerance (oral) Medications: Refilled cyclobenzaprine 10 mg PO BID PRN 30 tabs 0RF for muscle spasm R73.02 - Impaired glucose tolerance (oral)
[2025-04-24 14:37] VITALS: BP 108/60; PULSE 81; RESP 16; TEMP 36.2; O2SAT 96; BMI 27.0
== END 2025-04-24 15:15 | disposition home or self-care (01) ==
LOC: HO.HMCH 14:20
PROVIDERS: PCP Internal Medicine; Visit Provider Internal Medicine
DX: I12.9 Hypertensive chronic kidney disease with stage 1 through stage 4 chronic kidney disease, or unspecified chronic kidney disease (principal); I50.20 Unspecified systolic (congestive) heart failure; N18.9 Chronic kidney disease, unspecified; J43.1 Panlobular emphysema; I25.5 Ischemic cardiomyopathy; I25.10 Atherosclerotic heart disease of native coronary artery without angina pectoris; E78.00 Pure hypercholesterolemia, unspecified; R73.02 Impaired glucose tolerance (oral); E66.3 Overweight; R19.5 Other fecal abnormalities; Z23 Encounter for immunization

== ENCOUNTER → 2025-04-24 14:19 | Outpatient (BNVA) | payer MEDICARE, MEDICAID, SELFPAY | PROVIDERS: PCP Internal Medicine; Visit Provider Internal Medicine | DX: Z23 Encounter for immunization (principal); I25.5 Ischemic cardiomyopathy; I25.10 Atherosclerotic heart disease of native coronary artery without angina pectoris; I13.0 Hypertensive heart and chronic kidney disease with heart failure and stage 1 through stage 4 chronic kidney disease, or unspecified chronic kidney disease; N18.9 Chronic kidney disease, unspecified; I50.20 Unspecified systolic (congestive) heart failure; E78.00 Pure hypercholesterolemia, unspecified; R73.02 Impaired glucose tolerance (oral); E66.3 Overweight; R19.5 Other fecal abnormalities; J43.1 Panlobular emphysema; Z68.27 Body mass index [BMI] 27.0-27.9, adult | CPT/HCPCS: 90471; 90472; 90656; 90677; 99212 ==